=== PATIENT | male | born 1940 | race Caucasian/White ===

== ENCOUNTER 2020-07-26 07:28 | Outpatient (REF) | payer MEDICARE, OTHER, SELFPAY ==
[2020-07-26 07:57] LABS: MANUAL DIFF FLAG NO
[2020-07-26 08:00] LABS: Basophils Absolute Auto 0.1 X10*3/uL (0.0-0.2); Basophils Percent Auto 0.5 % (0-2); Eosinophils Absolute Auto 0.2 X10*3/uL (0.0-0.4); Eosinophils Percent Auto 2.1 % (0-4); Hematocrit 39.7 % (42-52); Imm Gran Abs Auto 0.04 X10*3/uL (0.00-0.03); Imm Gran Pct Auto 0.4 % (0.0-0.4); Lymphocytes Absolute Auto 0.9 X10*3/uL (1.2-4.9); Lymphocytes Percent Auto 9.8 % (20-40); Mean Corpuscular HGB Conc 32.7 g/dl (31.0-36.0); Mean Corpuscular Hemoglobin 30.8 pg (27.0-33.0); Mean Corpuscular Volume 94.1 fL (80-98); Mean Platelet Volume 10.8 fL (9.4-12.4); Monocytes Percent Auto 11.2 % (2-11); Platelet Count 192 X10*3/uL (160-400); Red Blood Count 4.22 X10*6/uL (4.60-5.80); Red Cell Distribution Width 13.9 % (11.0-16.0); White Blood Count 9.2 X10*3/uL (4.8-10.8)
[2020-07-26 08:20] LABS: Alanine Aminotransferase 23 U/L (0-40); Alkaline Phosphatase 137 U/L (39-117); Anion Gap 11 (12-20); Aspartate Amino Transferase 26 U/L (5-37); Bilirubin Total 1.8 mg/dL (0.0-1.0); Blood Urea Nitrogen 35 mg/dL (9-16); Calcium 8.7 mg/dL (8.4-10.2); Carbon Dioxide 31 mmol/L (22-29); Chloride 102 mmol/L (96-108); Cholesterol 111 mg/dL; Estimated Glomerular Filt Rate 41; Glucose Random 230 mg/dL (60-115); HDL Cholesterol 35 mg/dL; LDL Cholesterol Calculated 54 mg/dl; Potassium 3.9 mmol/L (3.3-5.1); Sodium 140 mmol/L (135-145); Total Protein 7.2 g/dL (6.5-8.0); Triglycerides 112 mg/dL
[2020-07-26 08:27] LABS: B Type Natriuretic Peptide 339 pg/mL (<100)
[2020-07-26 08:28] LABS: Creatinine Urine 114.87 mg/dL
[2020-07-26 08:42] LABS: Free T4 (Free Thyroxine) 1.28 ng/dL (0.71-1.85); Thyroid Stimulating Hormone 2.01 uIU/mL (0.32-4.0)
[2020-07-26 08:45] LABS: Microalbum/Creatinine Ratio Ur 620.7 ug/mg cr
[2020-07-26 11:57] LABS: SARS COV2 IgG Positive (Negative)
[2020-07-26 19:09] LABS: Folate 19.5 ng/mL (> or = 4.0); Vitamin B12 466 pg/mL (200-900)
== END 2020-07-26 07:29 | disposition home or self-care (01) ==
LOC: HO.LAB 07:28
PROVIDERS: Visit Provider Internal Medicine
DX: Z01.84 Encounter for antibody response examination (principal); E11.65 Type 2 diabetes mellitus with hyperglycemia; E78.00 Pure hypercholesterolemia, unspecified; I11.0 Hypertensive heart disease with heart failure; I50.22 Chronic systolic (congestive) heart failure
CPT/HCPCS: 36415; 80053; 80061; 82043; 82607; 82746; 83880; 84439; 84443; 85025; 86769

== ENCOUNTER → 2020-09-14 14:41 | Outpatient (BNVA) | payer MEDICARE, OTHER, SELFPAY | PROVIDERS: PCP Internal Medicine; Visit Provider Internal Medicine Cardiovascular Disease | DX: Z45.02 Encounter for adjustment and management of automatic implantable cardiac defibrillator (principal); I50.42 Chronic combined systolic (congestive) and diastolic (congestive) heart failure; I25.10 Atherosclerotic heart disease of native coronary artery without angina pectoris; I48.0 Paroxysmal atrial fibrillation; Z95.810 Presence of automatic (implantable) cardiac defibrillator | CPT/HCPCS: 99212 ==

== ENCOUNTER → 2020-11-10 13:50 | Outpatient (BNVA) | payer MEDICARE, OTHER, SELFPAY | PROVIDERS: PCP Internal Medicine; Visit Provider Urology | DX: Z13.89 Encounter for screening for other disorder (principal) | CPT/HCPCS: Q3014 ==

== ENCOUNTER 2021-01-11 07:47 | Outpatient (REF) | payer MEDICARE, OTHER, SELFPAY ==
[2021-01-11 08:12] LABS: MANUAL DIFF FLAG NO
[2021-01-11 08:20] LABS: Basophils Absolute Auto 0.1 X10*3/uL (0.0-0.2); Basophils Percent Auto 0.6 % (0-2); Eosinophils Absolute Auto 0.1 X10*3/uL (0.0-0.4); Eosinophils Percent Auto 1.3 % (0-4); Hematocrit 39.2 % (42-52); Hemoglobin 12.9 g/dl (14.0-18.0); Imm Gran Abs Auto 0.03 X10*3/uL (0.00-0.03); Imm Gran Pct Auto 0.3 % (0.0-0.4); Lymphocytes Absolute Auto 0.8 X10*3/uL (1.2-4.9); Lymphocytes Percent Auto 8.9 % (20-40); Mean Corpuscular HGB Conc 32.9 g/dl (31.0-36.0); Mean Corpuscular Hemoglobin 30.9 pg (27.0-33.0); Mean Corpuscular Volume 93.8 fL (80-98); Mean Platelet Volume 10.8 fL (9.4-12.4); Monocytes Absolute Auto 1.1 X10*3/uL (0.1-1.2); Monocytes Percent Auto 11.9 % (2-11); Neutrophils Absolute Auto 6.9 X10*3/uL (2.0-8.3); Platelet Count 184 X10*3/uL (160-400); Red Blood Count 4.18 X10*6/uL (4.60-5.80); Red Cell Distribution Width 13.9 % (11.0-16.0); Retic HGB Equivalent 34.4 pg (30.0-35.0); Reticulocyte Percent 2.7 % (0.5-1.8); Reticulocytes Absolute 0.115 X10*6/uL (0.026-0.095)
[2021-01-11 08:44] LABS: B Type Natriuretic Peptide 319 pg/mL (<100)
[2021-01-11 08:47] LABS: Alanine Aminotransferase 18 U/L (0-40); Albumin Level 3.8 g/dL (3.5-5.0); Alkaline Phosphatase 131 U/L (39-117); Anion Gap 12 (12-20); Aspartate Amino Transferase 22 U/L (5-37); Bilirubin Total 1.9 mg/dL (0.0-1.0); Blood Urea Nitrogen 35 mg/dL (9-16); Calcium 9.3 mg/dL (8.4-10.2); Carbon Dioxide 29 mmol/L (22-29); Chloride 103 mmol/L (96-108); Estimated Glomerular Filt Rate 36; Glucose Random 223 mg/dL (60-115); Iron 68 mcg/dL (45-160); Percent Iron Saturation 23 % (15-50); Potassium 4.5 mmol/L (3.3-5.1); Sodium 139 mmol/L (135-145); Total Iron Binding Capacity 299 mcg/dL (228-428); Total Protein 6.9 g/dL (6.5-8.0); Unsaturated Iron Binding 231 ug/dL; Uric Acid 6.9 mg/dL (3.4-7.0)
[2021-01-11 09:09] LABS: Ferritin 173 ng/mL (20-250); Thyroid Stimulating Hormone 2.52 uIU/mL (0.32-4.0)
[2021-01-11 09:14] LABS: Folate > 20.0 ng/mL (> or = 4.0); Vitamin B12 551 pg/mL (200-900)
== END 2021-01-11 07:48 | disposition home or self-care (01) ==
LOC: HO.LAB 07:47
PROVIDERS: PCP Internal Medicine; Visit Provider Internal Medicine
DX: I48.0 Paroxysmal atrial fibrillation (principal); I50.42 Chronic combined systolic (congestive) and diastolic (congestive) heart failure
CPT/HCPCS: 36415; 80053; 82607; 82728; 82746; 83540; 83880; 84443; 84550; 85025; 85045

== ENCOUNTER → 2021-02-24 08:29 | Outpatient (REF) | payer MEDICARE, OTHER, SELFPAY ==
--- NOTE | 2021-02-24 08:35 | CA_ITS ---
Transthoracic Echocardiogram Patient (Last, First, Middle): Ethan Macias D Gender: Male Date of : 1940 Age: 80 Procedure Date: 02/24/2021 Procedure Type: Transthoracic Echocardiogram Location: OP Height: 167.64 cm Weight: 91.63 kg BSA: 2.01 m2 Heart Rate: bpm BP: 118 / 64 mmHg Tour Operator: [facility] MD: Chevy Montanez MD Retail Salesman: Chevy Montanez MD Symptoms: I50.42 - Chronic combined systolic (congestive) and diastolic (congestive) heart failure Study Quality: Fair ECG Rhythm: Ventriculary paced rhythm Conclusions: - 1. Moderate LV systolic dysfunction with LVEF of 35-40% with restrictive filling pattern 2. At least moderately dilated left atrium 3. Mild mitral regurgitation 4. Mildly to moderately elevated right ventricular systolic pressure 5. No gross pericardial effusion Findings Left Ventricle Normal left ventricular cavity size. There is normal left ventricular wall thickness. The left ventricular systolic function is moderately decreased. The visually estimated ejection fraction is between 35-40%. There is paradoxical septal motion consistent with a right ventricular pacemaker. Spectral Doppler is indicative of a restrictive filling pattern. Wall Motion Rest Echo Findings The mid inferoseptal and mid inferolateral segments are hypokinetic. The apex, mid inferior, apical septum, basal inferoseptal, and basal inferolateral segments are akinetic. The basal inferior segment is dyskinetic. All other scored wall segments showed normal motion. Right Ventricle Mildly increased right ventricular cavity size. There is normal right ventricular systolic function. There is an ICD wire seen in the right ventricle. Atria The left atrium is moderately dilated. There is no evidence of interatrial shunt. The right atrium is mildly dilated. A pacemaker wire is identified in the right atrium. Aortic Valve There is mild calcification of the aortic valve. There is no aortic valve stenosis. There is no aortic valve regurgitation. Mitral Valve There is mild anterior and moderate posterior mitral leaflet thickening. There is moderate mitral annular calcification. There is mild mitral valve regurgitation. There is no mitral valve stenosis. Pulmonic Valve The pulmonic valve was not well visualized. Tricuspid Valve Likely normal tricuspid valve structure and function. There is mild to moderate tricuspid valve regurgitation. Mildly elevated right atrial pressure. Mild to moderate pulmonary hypertension is present. Great Vessels All visible segments of the aorta are normal in size. The pulmonary artery was not well visualized. Venous The inferior vena cava is mildly dilated and collapses less than 50% with inspiration. Pericardium/Pleural There is no evidence of pericardial effusion. Prior Study Comparison Changes noted compared to prior study dated: 10/17/2018. RV systolic pressure is measured to be elevated on this study Measurements 2D Linear Measurements RVIDd: 3.07 RVIDd Index: 1.53 IVSd: 1.03 0.6-0.9/0.6-1.0 cm LVIDd: 5.47 3.9-5.3/4.2-5.9 cm LVIDd Index: 2.72 2.4-3.2/2.2-3.1 cm/m2 LVIDs: 4.39 2.0-3.6 cm LVPWd: 1.42 0.7-1.1 cm Ao Root: 2.80 2.1-3.5 cm LA Diam: 5.00 2.7-3.8/3.0-4.0 cm LAIDs Index: 2.49 1.5-2.3 cm/m2 LV Mass: 346.45 67-162/88-224 g LV Mass Index: 172.36 43-95/49-115 g/m2 LVOT Diam: 2.30 3.0+(-)1.3 cm 2D Systolic Function EF 4C: 43.40 >55% EF 2C: 38.20 >55% EF BiP: 42.40 >55% Mitral Valve MR Vol - PW Dopp: 35.07 MR VTI: 1.67 MR ERO: 21.00 MR Alias Dean: 0.33 MR RAD: 0.70 Aortic Valve AoV Pk Dean: 1.52 AoV Mn Dean: 1.04 AoV VTI: 0.30 AoV Pk Grad: 9.00 Aov Mn Grad: 5.00 EDITH Cont.VTI: 2.44 LVOT LVOT Pk Dean: 0.78 LVOT Mn Dean: 0.53 LVOT VTI: 0.18 LVOT Pk Grad: 2.00 LVOT Mn Grad: 1.00 LVOT Diam: 2.30 LVOT Area: 4.15 Right Ventricle TAPSE (mm): 23.00 TVS' Dean: 9.50 Tricuspid Valve TR Pk Dean: 3.19 TR Pk Grad: 41.00 RA Press: 8.00 RVSP: 49.00 Great Vessels Aorta Ao Root-2D: 2.80 2.0-3.7 cm Ao Asc: 2.90 2.1-3.4 cm Updated in Other Vendor System with Status of Final Chevy Montanez MD electronically signed on 02/25/2021 3:37:56 PM with status of Final
== END ==
LOC: HO.CARD 08:29
PROVIDERS: Visit Provider Internal Medicine Cardiovascular Disease
DX: I50.42 Chronic combined systolic (congestive) and diastolic (congestive) heart failure (principal)
CPT/HCPCS: 93306

== ENCOUNTER → 2021-03-17 13:04 | Outpatient (BNVA) | payer MEDICARE, OTHER, SELFPAY | PROVIDERS: PCP Internal Medicine; Referring Provider Internal Medicine; Visit Provider Internal Medicine Cardiovascular Disease | DX: Z45.02 Encounter for adjustment and management of automatic implantable cardiac defibrillator (principal); I50.42 Chronic combined systolic (congestive) and diastolic (congestive) heart failure; I48.0 Paroxysmal atrial fibrillation; I25.10 Atherosclerotic heart disease of native coronary artery without angina pectoris | CPT/HCPCS: 99212 ==

== ENCOUNTER 2021-03-22 10:26 | Inpatient (IN) | payer OTHER, MEDICARE, SELFPAY ==
[2021-03-22] VITALS (12 sets, daily range): BP systolic 122–154; BP diastolic 49–103; PULSE 70–82; RESP 18–26; TEMP 36.1–37.2; O2SAT 91–97; BMI 32.4
--- NOTE | 2021-03-22 | ECG_ITS ---
Test Reason : DYSPNEA Blood Pressure : / mmHG Vent. Rate : 076 BPM Atrial Rate : 022 BPM P-R Int : 000 ms QRS Dur : 166 ms QT Int : 470 ms P-R-T Axes : 000 -12 -30 degrees QTc Int : 528 ms Ventricular-paced rhythm Abnormal ECG When compared with ECG of 02-AUG-2019 01:32, Vent. rate has increased BY 5 BPM Referred By: Generic ED Physician Electronically Signed By:KAIDEN SAMUEL
--- NOTE | ~2021-03-22 | XR_ITS ---
EXAMINATION: XR CHEST CLINICAL INFORMATION: Dyspnea COMPARISON: Previous chest x-ray most recent July 2019 TECHNIQUE: Frontal view of the chest was obtained. FINDINGS: The cardiac silhouette is slightly enlarged. Left subclavian pacemaker AICD devices appear unchanged. There are post-CABG changes. There may be pulmonary venous redistribution. The lungs are otherwise clear. There is no pleural effusion or pneumothorax. There are degenerative changes of the spine. There are median sternotomy wires. XR/XR chest 1V IMPRESSION: Slightly enlarged cardiac silhouette and question pulmonary venous redistribution. Findings are questionable for mild CHF.
--- NOTE | 2021-03-22 11:01 | ED.SOB ---
HPI - SOB/Dyspnea General Chief Complaint: Dyspnea Stated Complaint: diff breathing Time Seen by Provider: 03/22/21 10:39 Source: patient Mode of arrival: ambulatory Limitations: no limitations History of Present Illness HPI Narrative: 80 y/o male with history of CKD, CAD with ischemic cardiomyopathy with EF 35-40%, S/P ICD/PPM who presents to the ER with SOB that started last night. He reports getting his COVID-19 booster shot yesterday morning. He had previously gotten his Pfizer vaccines in July and had COVID-19 last April. Last night he starting having chills, SOB, and body aches. He reports ongoing SOB overnight. He can take 2-3 full deep breaths and then cannot get a deep breath with subsequent breaths. He has non-radiating chest discomfort as well. He c/o indigestion with belching and flatus. No abdominal pain, nausea, diarrhea, diaphoresis or fevers. MD elicited complaint: shortness of breath Pertinent past history: congestive heart failure Onset (ago): day(s) (1) Timing: constant and progressively worsening Severity: moderate Exacerbating factors: deep breaths Relieving factors: rest Known history of: congestive heart failure Associated symptoms: lightheadedness Treatment prior to arrival: none Related Data Home oxygen amount: none Home Medications Medication Instructions Recorded Confirmed multivitamin 1 tab PO DAILY 04/12/20 03/22/21 bumetanide 1 mg tablet 1 mg PO DAILY tab 03/17/21 03/22/21 Previous Rx's Medication Instructions Recorded hydralazine 10 mg tablet 10 mg PO BID 90 Days #180 tab 03/31/20 atorvastatin 80 mg tablet 80 mg PO DAILY #90 tab 06/24/20 carvedilol 6.25 mg tablet 6.25 mg PO BID #180 tab 06/24/20 glimepiride 4 mg tablet 4 mg PO QAM #90 tab 08/18/20 ropinirole 0.25 mg tablet 0.25 mg PO BEDTIME #90 tab 08/18/20 sitagliptin 50 mg tablet (Januvia) 50 mg PO DAILY #90 tab 08/18/20 tamsulosin 0.4 mg capsule (Flomax) 0.4 mg PO DAILY 90 Days #90 cap 08/18/20 rivaroxaban 15 mg tablet (Xarelto) 15 mg PO DAILY #90 tab 08/19/20 nitroglycerin 0.4 mg sublingual 0.4 mg SUBLINGUAL Q5M PRN #25 tab 09/16/20 tablet (Nitrostat) colchicine 0.6 mg tablet (Colcrys) 0.6 mg PO DAILY 90 Days #90 tab 12/23/20 allopurinol 100 mg tablet 100 mg PO DAILY 90 Days #90 tab 01/24/21 nitroglycerin 0.4 mg/hr 1 patch TRANSDERMAL DAILY 90 Days 02/23/21 transdermal 24 hour patch #90 ea (Nitro-Dur) Allergies Allergy/AdvReac Type Severity Reaction Status Date / Time dabigatran etexilate Allergy Unknown indigestion Verified 01/14/21 12:50 [Pradaxa] sacubitril [From ENTRESTO] Allergy Unknown FEELS LIKE Verified 01/14/21 12:50 HAVING A HEART ATTACK valsartan [From ENTRESTO] Allergy Unknown FEELS LIKE Verified 01/14/21 12:50 HAVING A HEART ATTACK Review of Systems Review of Systems: Constitutional: No Fever, + Chills ENT/Mouth: No sore throat, No Rhinorrhea, No Swallowing Difficulty Cardiovascular: + Chest Pain, + SOB, No Orthopnea, No Edema Respiratory: No Cough, No Sputum, No Wheezing, + dyspnea Gastrointestinal: No Nausea, No Vomiting, No Diarrhea, No abdominal Pain, +belching Genitourinary: No Dysuria, No Urinary Frequency, No Hematuria Musculoskeletal: No joint pain, + Myalgias Skin: No Skin Lesions, No rash Neuro: No Weakness, No Numbness, No Dizziness, + Headache Psych: No Anxiety/Panic, No Depression Heme/Lymph: No Bruising, No Lymphadenopathy PMFSH Past Medical History Attestation statement: The following information was validated with the patient. Medical History Aortic aneurysm Atrial fibrillation Biventricular ICD (implantable cardioverter-defibrillator) in place CAD (coronary artery disease) Chronic heart failure with reduced ejection fraction and diastolic dysfunction Congestive heart failure GERD (gastroesophageal reflux disease) Gout History of GI bleed Hypercholesterolemia Hypertension Ischemic cardiomyopathy Obesity (BMI 30-39.9) TIA (transient ischemic attack) Type 2 diabetes mellitus with hyperglycemia Surgical History Coronary artery disease involving coronary bypass graft History of cardiac defibrillator placement History of cholecystectomy Family History Family History Father CVD (cardiovascular disease) Hypertension Mother Cancer Social History Social History Alcohol intake: never Patient Tobacco Use Status: Former Tobacco user Years Smoked: quit 1985 Advance Directives: No Advance Directives Information Provided: No Physical Exam Vital Signs: Vital Signs: Last Vital Signs Temp 97 F 03/22/21 13:47 Pulse 70 03/22/21 13:47 Resp 18 03/22/21 13:47 BP 146/103 H 03/22/21 13:47 Pulse Ox 97 03/22/21 13:47 Body Mass Index 32.4 Appearance: Alert. Oriented X3. No acute distress. Eyes: Pupils equal, round and reactive to light. ENT: Pharynx normal. Neck: Normal inspection. Neck supple. CVS: Normal heart rate and rhythm. Pulses normal. Respiratory: No respiratory distress. Breath sounds diminished at bilateral bases Abdomen: Softly distended and nontender. +BS x4 Skin: Skin warm and dry. Normal skin color. Normal skin turgor. No rashes. Extremities: Trace lower extremity edema. Neuro: Oriented X 3. No motor deficit. No sensory deficit. Course Course Course Narrative: 80 y/o male with multiple comorbidities including HFrEF, CAD, s/p PPM/ICD, CKD, hx COVID in April 2020 coming in with SOB and not feeling well after getting his COVID booster yesterday. SPO2 93% on room air, no distress. Will get CXR, EKG, BNP lab workup and COVID test. He is due to his Bumex, he was feeling off this morning so he didn't take it yet today. Reevaluation(s) Reevaluation #1: BNP 673 from his baseline of 300 range. His CKD is at his baseline. CXR with mild CHF findings. COVID POSITIVE. SpO2 91% on room air. Will place on supplemental O2 and plan for admission. His respiratory complaints are most likely due to a combination of acute on chronic heart failure and COVID-19. IV Bumex and IV decadron ordered. MDM - SOB/Dyspnea Lab Data Result diagrams: 03/22/21 11:04 03/22/21 11:04 Labs: Lab Results 03/22/21 03/22/21 03/22/21 Range/Units 11:04 11:04 11:04 WBC 7.5 (4.8-10.8) X10*3/uL RBC 4.00 L (4.60-5.80) X10*6/uL Hgb 12.3 L (14.0-18.0) g/dl Hct 37.0 L (42-52) % MCV 92.5 (80-98) fL MCH 30.8 (27.0-33.0) pg MCHC 33.2 (31.0-36.0) g/dl RDW 13.8 (11.0-16.0) % Plt Count 152 L (160-400) X10*3/uL MPV 10.9 (9.4-12.4) fL Immature Gran % (Auto) 0.4 (0.0-0.4) % Neut % (Auto) 85.9 H (45-73) % Lymph % (Auto) 2.8 L (20-40) % [place] % (Auto) 10.4 (2-11) % Eos % (Auto) 0.1 (0-4) % Baso % (Auto) 0.4 (0-2) % Lymph # (Auto) 0.2 L (1.2-4.9) X10*3/uL [place] # (Auto) 0.8 (0.1-1.2) X10*3/uL Eos # (Auto) 0.0 (0.0-0.4) X10*3/uL Baso # (Auto) 0.0 (0.0-0.2) X10*3/uL Abs Immat Gran (auto) 0.03 (0.00-0.03) X10*3/uL Absolute Neuts (auto) 6.4 (2.0-8.3) X10*3/uL Absolute Nucleated RBC 0.000 (0.0-0.012) X10*3/uL Nucleated RBC % (auto) 0.0 (0.0-0.2) /100WBC PT (9.9-13.0) SEC INR (0.9-1.1) Sodium 139 (135-145) mmol/L Potassium 4.3 (3.3-5.1) mmol/L Chloride 104 (96-108) mmol/L Carbon Dioxide 28 (22-29) mmol/L Anion Gap 11 L (12-20) BUN 31 H (9-16) mg/dL Creatinine 1.87 H (0.5-1.4) mg/dL Estim Creat Clear Calc 34.4 Estimated GFR 35 Random Glucose 209 H (60-115) mg/dL Calcium 9.0 (8.4-10.2) mg/dL Troponin I High Sens 26.5 (<3.5-35.0) ng/L B-Natriuretic Peptide 673 H (<100) pg/mL COVID-19 (LOGAN) (Negative) COVID-19 Clin Com 03/22/21 03/22/21 Range/Units 11:04 11:58 WBC (4.8-10.8) X10*3/uL RBC (4.60-5.80) X10*6/uL Hgb (14.0-18.0) g/dl Hct (42-52) % MCV (80-98) fL MCH (27.0-33.0) pg MCHC (31.0-36.0) g/dl RDW (11.0-16.0) % Plt Count (160-400) X10*3/uL MPV (9.4-12.4) fL Immature Gran % (Auto) (0.0-0.4) % Neut % (Auto) (45-73) % Lymph % (Auto) (20-40) % [place] % (Auto) (2-11) % Eos % (Auto) (0-4) % Baso % (Auto) (0-2) % Lymph # (Auto) (1.2-4.9) X10*3/uL [place] # (Auto) (0.1-1.2) X10*3/uL Eos # (Auto) (0.0-0.4) X10*3/uL Baso # (Auto) (0.0-0.2) X10*3/uL Abs Immat Gran (auto) (0.00-0.03) X10*3/uL Absolute Neuts (auto) (2.0-8.3) X10*3/uL Absolute Nucleated RBC (0.0-0.012) X10*3/uL Nucleated RBC % (auto) (0.0-0.2) /100WBC PT 20.8 H (9.9-13.0) SEC INR 1.8 H (0.9-1.1) Sodium (135-145) mmol/L Potassium (3.3-5.1) mmol/L Chloride (96-108) mmol/L Carbon Dioxide (22-29) mmol/L Anion Gap (12-20) BUN (9-16) mg/dL Creatinine (0.5-1.4) mg/dL Estim Creat Clear Calc Estimated GFR Random Glucose (60-115) mg/dL Calcium (8.4-10.2) mg/dL Troponin I High Sens (<3.5-35.0) ng/L B-Natriuretic Peptide (<100) pg/mL COVID-19 (LOGAN) Positive A (Negative) COVID-19 Clin Com See Note ECG Data Attestation: I personally reviewed and interpreted this ECG as follows: ECG interpretation date: 03/22/21 ECG interpretation time: 14:57 Interpretation: v-paced rhythm, HR 76 bpm, no ST segment elevations or depressions, some artifact is present Critical Care Time Critical Care Time Critical Care Time: Yes Total Critical Care Time: 36 Attestation: I have personally provided critical care time exclusive of time spent on separately billable procedures. Time includes review of lab data, radiology results, discussion with consultants, and monitoring for potential decompensation. Intervention performed as documented. Discharge Plan Discharge Clinical Impression: COVID-19 Acute CHF Qualifiers: Heart failure type: combined systolic and diastolic Qualified Code(s): I50.41 - Acute combined systolic (congestive) and diastolic (congestive) heart failure Patient Disposition: Admitted As Inpatient
[2021-03-22 11:10] LABS: MANUAL DIFF FLAG NO
[2021-03-22 11:12] LABS: Basophils Percent Auto 0.4 % (0-2); Eosinophils Percent Auto 0.1 % (0-4); Hemoglobin 12.3 g/dl (14.0-18.0); Imm Gran Abs Auto 0.03 X10*3/uL (0.00-0.03); Imm Gran Pct Auto 0.4 % (0.0-0.4); Lymphocytes Absolute Auto 0.2 X10*3/uL (1.2-4.9); Lymphocytes Percent Auto 2.8 % (20-40); Mean Corpuscular HGB Conc 33.2 g/dl (31.0-36.0); Mean Corpuscular Hemoglobin 30.8 pg (27.0-33.0); Mean Corpuscular Volume 92.5 fL (80-98); Mean Platelet Volume 10.9 fL (9.4-12.4); Monocytes Absolute Auto 0.8 X10*3/uL (0.1-1.2); Monocytes Percent Auto 10.4 % (2-11); Neutrophils Absolute Auto 6.4 X10*3/uL (2.0-8.3); Neutrophils Percent Auto 85.9 % (45-73); Platelet Count 152 X10*3/uL (160-400); Red Cell Distribution Width 13.8 % (11.0-16.0); White Blood Count 7.5 X10*3/uL (4.8-10.8)
[2021-03-22 11:20] LABS: INTERNATIONAL NORM RATIO 1.8 (0.9-1.1); Prothrombin Time 20.8 SEC (9.9-13.0)
[2021-03-22 11:27] LABS: Anion Gap 11 (12-20); Blood Urea Nitrogen 31 mg/dL (9-16); Carbon Dioxide 28 mmol/L (22-29); Chloride 104 mmol/L (96-108); Creatinine Clr Calc Pharmacy 34.4; Estimated Glomerular Filt Rate 35; Glucose Random 209 mg/dL (60-115); Potassium 4.3 mmol/L (3.3-5.1); Sodium 139 mmol/L (135-145)
[2021-03-22] MEDS: Magnesium Hydrox/Alum Hydrox 30 ML ORAL.SUSP PO (11:28)
[2021-03-22] MEDS: Simethicone 80 MG TAB.CHEW 160 MG PO (11:28)
[2021-03-22 11:34] LABS: B Type Natriuretic Peptide 673 pg/mL (<100); Troponin-I High Sensitivity 26.5 ng/L (<3.5-35.0)
[2021-03-22 12:13] LABS: COVID-19 Test Positive (Negative)
--- NOTE | 2021-03-22 12:48 | PC.NURSE ---
patient arrives to ED from home with son. Patient A+Ox4. States he received his COVID-19 2nd shot yesterday. States last night he was having difficulty breathing, and could not fall asleep. Patient SpO2 >92% on room air. Patient ambulated on RA remained >93%. VSS. Labs drawn and sent. IV placed and flushed. Resting safely.
[2021-03-22] MEDS: Bumetanide 1 MG/4 ML VIAL IVPUSH (13:04)
--- NOTE | 2021-03-22 13:36 | PHA.MEDREC ---
Pharmacy Consult ? Medication Reconciliation Pharmacy has completed the medication reconciliation.
[2021-03-22] MEDS: dexAMETHasone sod phosphate 4 MG/ML VIAL 6 MG IVPUSH (13:48)
[2021-03-22] MEDS: 0.9 % Sodium Chloride Flush 3 ML SYRINGE IVFLUSH ×2 (15:37→21:44)
--- NOTE | 2021-03-22 15:40 | P.HPHOSP_ITS ---
History of Present Illness Date of Service: 03/22/21 Chief Complaint: shortness of breath 80-year-old man presented to the ER with complaints of worsening shortness of breath that started last night. He had COVID-19 in April of 2020 and that was vaccinated with the 5 vaccine in July of 2020. Yesterday he had his booster and developed shortness of breath overnight. He had some nonradiating chest discomfort with indigestion and frequent belching and flatus. He denied nausea, vomiting, abdominal pain, fever, chills. He has a history of congestive heart failure and is on Bumex at home. In the ears BNP is noted to be elevated at 673, initial troponin 26.5. COVID-19 was positive. , he was not noted to be hypoxic at all. His blood pressure was noted to be elevated at 140 6/103. Last echocardiogram on February 24 showed EF of 35-40% with moderately dilated left atrium. He was given a dose of IV Bumex, Decadron, Maalox and simethicone. He will be admitted for further management and treatment of acute heart failure and incidental finding of COVID-19. Review of Systems Review of Systems: Denies any recent fever chills or decrease in appetite respiratory denies any shortness of breath coverage production cardiovascular is adjustment of any PND or edema gastrointestinal denies any dysphagia abdominal pain nausea vomiting or diarrhea genitourinary denies any dysuria frequency or hematuria musculoskeletal denies any joint pain or swelling neuropsych denies any weakness or seizures all other systems reviewed are negative [facility] Medical History Aortic aneurysm Atrial fibrillation Biventricular ICD (implantable cardioverter-defibrillator) in place CAD (coronary artery disease) Chronic heart failure with reduced ejection fraction and diastolic dysfunction Congestive heart failure GERD (gastroesophageal reflux disease) Gout History of GI bleed Hypercholesterolemia Hypertension Ischemic cardiomyopathy Obesity (BMI 30-39.9) TIA (transient ischemic attack) Type 2 diabetes mellitus with hyperglycemia Family History Father CVD (cardiovascular disease) Hypertension Mother Cancer Pertinent family history: . Surgical History Coronary artery disease involving coronary bypass graft History of cardiac defibrillator placement History of cholecystectomy Social History Alcohol intake: never Patient Tobacco Use Status: Former Tobacco user Years Smoked: quit 1985 Advance Directives: No Advance Directives Information Provided: No Meds Allergies Allergy/AdvReac Type Severity Reaction Status Date / Time dabigatran etexilate Allergy Unknown indigestion Verified 01/14/21 12:50 [Pradaxa] sacubitril [From ENTRESTO] Allergy Unknown FEELS LIKE Verified 01/14/21 12:50 HAVING A HEART ATTACK valsartan [From ENTRESTO] Allergy Unknown FEELS LIKE Verified 01/14/21 12:50 HAVING A HEART ATTACK Active Medications: Current Medications Acetaminophen (Acetaminophen 325 Mg Tablet) 650 mg PO Q6H PRN PRN Reason: Pain, Mild (Pain Scale 1-3) Furosemide (Furosemide 20 Mg/2 Ml Vial) 20 mg IVPUSH BID@0900,1800 QUETA; Protocol Ondansetron HCl (Ondansetron Hcl 4 Mg/2 Ml Vial) 4 mg IVPUSH Q8H PRN PRN Reason: Nausea and Vomiting Pharmacy Consult (Consult Rx Perform Med Rec) 1 each MISCELLANE ONCE PRN PRN Reason: Consult order Sodium Chloride (0.9 % Sodium Chloride Flush 3 Ml Syringe) [facility] Last Admin: 03/22/21 15:37 Dose: 3 ml Documented by: Home Medications Medication Instructions Recorded Confirmed Last Taken Type multivitamin 1 tab PO DAILY 04/12/20 03/22/21 Unknown History bumetanide 1 mg tablet 1 mg PO DAILY tab 03/17/21 03/22/21 Unknown History Physical Exam Vital Signs and Narrative: Vital Signs: Last Vital Signs Temp 97 F 03/22/21 13:47 Pulse 70 03/22/21 13:47 Resp 18 03/22/21 13:47 BP 146/103 H 03/22/21 13:47 Pulse Ox 97 03/22/21 13:47 Body Mass Index 32.4 Results Labs CBC and Chem 7: 03/22/21 11:04 03/22/21 11:04 Labs: Laboratory Results - last 24 hr 03/22/21 03/22/21 03/22/21 11:04 11:04 11:04 MCV 92.5 MCH 30.8 MCHC 33.2 RDW 13.8 Plt Count 152 L MPV 10.9 Immature Gran % (Auto) 0.4 Neut % (Auto) 85.9 H Lymph % (Auto) 2.8 L [place] % (Auto) 10.4 Eos % (Auto) 0.1 Baso % (Auto) 0.4 Lymph # (Auto) 0.2 L [place] # (Auto) 0.8 Eos # (Auto) 0.0 Baso # (Auto) 0.0 Abs Immat Gran (auto) 0.03 Absolute Neuts (auto) 6.4 Absolute Nucleated RBC 0.000 Nucleated RBC % (auto) 0.0 PT INR Anion Gap 11 L Estim Creat Clear Calc 34.4 Estimated GFR 35 Random Glucose 209 H Calcium 9.0 Troponin I High Sens 26.5 B-Natriuretic Peptide 673 H COVID-19 (LOGAN) COVID-19 Clin Com 03/22/21 03/22/21 11:04 11:58 MCV MCH MCHC RDW Plt Count MPV Immature Gran % (Auto) Neut % (Auto) Lymph % (Auto) [place] % (Auto) Eos % (Auto) Baso % (Auto) Lymph # (Auto) [place] # (Auto) Eos # (Auto) Baso # (Auto) Abs Immat Gran (auto) Absolute Neuts (auto) Absolute Nucleated RBC Nucleated RBC % (auto) PT 20.8 H INR 1.8 H Anion Gap Estim Creat Clear Calc Estimated GFR Random Glucose Calcium Troponin I High Sens B-Natriuretic Peptide COVID-19 (LOGAN) Positive A COVID-19 Clin Com See Note Imaging Radiologist's Impressions: Impressions Chest X-Ray 03/22/21 10:46 IMPRESSION: Slightly enlarged cardiac silhouette and question pulmonary venous redistribution. Findings are questionable for mild CHF. Assessment and Plan (1) COVID-19: Status: Acute (2) Acute CHF: Qualifiers: Heart failure type: combined systolic and diastolic Qualified Code(s): I50.41 - Acute combined systolic (congestive) and diastolic (congestive) heart failure Status: Acute 80 year old man admitted with acute on chronic congestive heart failure and also found to be positive for COVID-19 although he did have COVID-19 in April of 2020 and was vaccinated fully in July of 2020 Heart failure with reduced ejection fraction. EF 35-40% IV Lasix b.i.d. Cardiology consultation Follow intake and output closely, daily weights Supplemental oxygen as needed Continue beta-lety COVID-19. Reoccurrence Not hypoxic, seems to be asymptomatic current symptoms more likely related to heart failure Will obtain respiratory pathogen panel Infectious disease consultation Paroxysmal atrial fibrillation Continue beta-lety and Xarelto Hypertension Continue hydralazine Diabetes mellitus Sliding scale, ADA diet DVT prophylaxis with Xarelto Attending Dr. Monroy Full code Quality Stroke Does the patient have a stroke diagnosis?: No VTE Prior VTE?: No VTE Risk Level:: Medical - moderate - high VTE Device Contraindication: Treatment Not Indicated VTE Drug Contraindication: N/A - Med Ordered
[2021-03-22 15:49] LABS: D Dimer 296 NG/ML
[2021-03-22 15:55] LABS: C Reactive Protein 1.33 mg/dL (< or = 0.50); Lactate Dehydrogenase 233 U/L (118-273)
[2021-03-22 16:13] LABS: Ferritin 254 ng/mL (20-250)
[2021-03-22 16:28] LABS: Adenovirus PCR Not Detected (Not Detect.); Bordetella parapertussis PCR Not Detected (Not Detect.); Bordetella pertussis PCR Not Detected (Not Detect.); Chlamydia pneumoniae PCR Not Detected (Not Detect.); Coronavirus 229E PCR Not Detected (Not Detect.); Coronavirus HKU1 PCR Not Detected (Not Detect.); Coronavirus NL63 PCR Not Detected (Not Detect.); Coronavirus OC43 PCR Not Detected (Not Detect.); Human metapneumovirus PCR Not Detected (Not Detect.); Influenza A PCR Not Detected (Not Detect.); Influenza B PCR Not Detected (Not Detect.); Mycoplasma pneumoniae PCR Not Detected (Not Detect.); Parainfluenza 1 PCR Not Detected (Not Detect.); Parainfluenza 2 PCR Not Detected (Not Detect.); Parainfluenza 3 PCR Not Detected (Not Detect.); Parainfluenza 4 PCR Not Detected (Not Detect.); RSV PCR Not Detected (Not Detect.); Rhino/Enterovirus PCR Not Detected (Not Detect.); SARS-CoV-2 PCR Not Detected (Not Detect.)
[2021-03-22] MEDS: Furosemide 20 MG/2 ML VIAL IVPUSH (17:47)
[2021-03-23 04:00] VITALS: BP 117/58; PULSE 78; RESP 20; TEMP 36.8; O2SAT 97
[2021-03-23 06:27] LABS: MANUAL DIFF FLAG NO
[2021-03-23 06:31] LABS: Basophils Percent Auto 0.3 % (0-2); Hematocrit 35.5 % (42-52); Hemoglobin 11.9 g/dl (14.0-18.0); Imm Gran Abs Auto 0.04 X10*3/uL (0.00-0.03); Imm Gran Pct Auto 0.5 % (0.0-0.4); Lymphocytes Absolute Auto 0.3 X10*3/uL (1.2-4.9); Lymphocytes Percent Auto 4.2 % (20-40); Mean Corpuscular HGB Conc 33.5 g/dl (31.0-36.0); Mean Corpuscular Hemoglobin 30.7 pg (27.0-33.0); Mean Corpuscular Volume 91.5 fL (80-98); Mean Platelet Volume 10.9 fL (9.4-12.4); Monocytes Absolute Auto 0.6 X10*3/uL (0.1-1.2); Monocytes Percent Auto 8.2 % (2-11); Neutrophils Absolute Auto 6.5 X10*3/uL (2.0-8.3); Neutrophils Percent Auto 86.8 % (45-73); Platelet Count 155 X10*3/uL (160-400); Red Blood Count 3.88 X10*6/uL (4.60-5.80); Red Cell Distribution Width 13.9 % (11.0-16.0); White Blood Count 7.5 X10*3/uL (4.8-10.8)
[2021-03-23 06:48] LABS: Anion Gap 12 (12-20); Blood Urea Nitrogen 40 mg/dL (9-16); Calcium 8.9 mg/dL (8.4-10.2); Carbon Dioxide 28 mmol/L (22-29); Chloride 100 mmol/L (96-108); Creatinine Clr Calc Pharmacy 33.1; Estimated Glomerular Filt Rate 34; Glucose Random 319 mg/dL (60-115); Potassium 4.4 mmol/L (3.3-5.1); Sodium 136 mmol/L (135-145)
[2021-03-23 06:55] VITALS: BP 115/60; PULSE 82; RESP 20; TEMP 36.6; O2SAT 97
[2021-03-23 08:15] LABS: B Type Natriuretic Peptide 767 pg/mL (<100)
--- NOTE | 2021-03-23 08:39 | MHC.CM.PN ---
Patient is Covid (+); CM spoke with Patient over the phone at room extension [phone]. Patient lives in an apartment with his 2 Sons/HCPs and he is functionally independent. Patient's goal is to return home/no services and CM has initiated and will follow for dc planning. IMM addressed with Patient over the phone (a copy has been placed on the chart).PCP is DR. Kishan AGUAYO.
[2021-03-23] MEDS: Furosemide 20 MG/2 ML VIAL IVPUSH ×2 (09:11→16:50)
[2021-03-23] MEDS: 0.9 % Sodium Chloride Flush 3 ML SYRINGE IVFLUSH ×3 (09:12→23:43)
[2021-03-23 10:55] VITALS: BP 113/63; PULSE 72; RESP 18; TEMP 36.6; O2SAT 96
--- NOTE | 2021-03-23 11:05 | P.PNIM_ITS ---
Progress Note: A&P (1) COVID-19: Status: Acute <Hilda Rooney NP - Last Filed: 03/23/21 11:27> (2) Acute CHF: Status: Acute <Hilda Rooney NP - Last Filed: 03/23/21 11:27> Assessment and Plan: 80 year old man admitted with acute on chronic congestive heart failure and also found to be positive for COVID-19 although he did have COVID-19 in April of 2020 and was vaccinated fully in July of 2020 Heart failure with reduced ejection fraction.? EF 35-40% IV Lasix b.i.d. Cardiology following Follow intake and output closely, daily weights Supplemental oxygen as needed Continue beta-lety BNP slightly up today, one more day of diuresis COVID-19.? Reoccurrence Not hypoxic, seems to be asymptomatic current symptoms more likely related to heart failure Will obtain respiratory pathogen panel Infectious disease consultation Paroxysmal atrial fibrillation Continue beta-ltey and Xarelto Hypertension Continue hydralazine Diabetes mellitus Sliding scale, ADA diet DVT prophylaxis with Xarelto Attending Dr. Monroy Full code <Hilda Rooney NP - Last Filed: 03/23/21 11:27> Subjective Subjective Date of Service: 03/23/21 <Hilda Rooney NP - Last Filed: 03/23/21 11:27> 03/23/21 <Stiven Monroy MD - Last Filed: 03/23/21 14:53> Review of Systems Follow up CHF, ? covid No sob or cough less edema <Hilda Rooney NP - Last Filed: 03/23/21 11:27> Physical Exam Vital Signs: Vital Signs: Last Vital Signs Temp 98 F 03/23/21 10:55 Pulse 72 03/23/21 10:55 Resp 18 03/23/21 10:55 BP 113/63 03/23/21 10:55 Pulse Ox 96 03/23/21 10:55 Body Mass Index 32.4 <Hilda Rooney NP - Last Filed: 03/23/21 11:27> Appearing in no acute distress lung sounds are clear to auscultation heart regular rate rhythm, clear S1, S2 positive bowel sounds, abdomen is soft, nontender neuro patient is alert x3, no focal deficits <Hilda Rooney NP - Last Filed: 03/23/21 11:27> Objective Data Current Medications Acetaminophen (Acetaminophen 325 Mg Tablet) 650 mg PO Q6H PRN PRN Reason: Pain, Mild (Pain Scale 1-3) Dextrose (Dextrose 50 % 25 Gm/50 Ml Vial) 25 gm IVPUSH Q15M PRN; Protocol PRN Reason: per Hypoglycemia Standing Ord. Furosemide (Furosemide 20 Mg/2 Ml Vial) 20 mg IVPUSH BID@0900,1800 [facility]; Protocol Last Admin: 03/23/21 09:11 Dose: 20 mg Documented by: Glucose (Glucose Gel 15 Gm Gel..Gram.) 15 gm PO Q15M PRN; Protocol PRN Reason: per Hypoglycemia Standing Ord. Insulin Human Lispro (Insulin Lispro 100 Unit/Ml 3 Ml Vial) 0 unit SUBCUT QIDACHS [facility]; Protocol Ondansetron HCl (Ondansetron Hcl 4 Mg/2 Ml Vial) 4 mg IVPUSH Q8H PRN PRN Reason: Nausea and Vomiting Pharmacy Consult (Consult Rx Perform Med Rec) 1 each MISCELLANE ONCE PRN PRN Reason: Consult order Sodium Chloride (0.9 % Sodium Chloride Flush 3 Ml Syringe) [facility] Admin: 03/23/21 09:12 Dose: 3 ml Documented by: <Hilda Rooney NP - Last Filed: 03/23/21 11:27> Labs CBC & Chem 7: : 03/23/21 05:56 03/23/21 05:56 <Hilda Rooney NP - Last Filed: 03/23/21 11:27> Labs: Laboratory Results - last 24 hr 03/22/21 03/22/21 03/22/21 11:04 11:04 11:04 MCV 92.5 MCH 30.8 MCHC 33.2 RDW 13.8 Plt Count 152 L MPV 10.9 Immature Gran % (Auto) 0.4 Neut % (Auto) 85.9 H Lymph % (Auto) 2.8 L [place] % (Auto) 10.4 Eos % (Auto) 0.1 Baso % (Auto) 0.4 Lymph # (Auto) 0.2 L [place] # (Auto) 0.8 Eos # (Auto) 0.0 Baso # (Auto) 0.0 Abs Immat Gran (auto) 0.03 Absolute Neuts (auto) 6.4 Absolute Nucleated RBC 0.000 Nucleated RBC % (auto) 0.0 PT INR D-Dimer Anion Gap 11 L Estim Creat Clear Calc 34.4 Estimated GFR 35 Random Glucose 209 H Calcium 9.0 Ferritin 254 H Lactate Dehydrogenase 233 Troponin I High Sens 26.5 C-Reactive Protein 1.33 H B-Natriuretic Peptide 673 H Respiratory Panel Ghotra Adenovirus (Rapid PCR) B.pert (TEM-PCR) B.parapertussis DNA PCR C. pneumoniae DNA (PCR) Coronavirus OC43 (PCR) Coronavirus HKU1 (PCR) Coronavirus 229E (PCR) COVID-19 ([facility]) COVID-19 Clin Com Coronavirus NL63 (PCR) Human Metapneumovir PCR Influenza A (RT-PCR) Influenza B (RT-PCR) M. pneumoniae (PCR) Parainfluenza 1 (PCR) Parainfluenza 2 (PCR) Parainfluenza 3 (PCR) Parainfluenza 4 (PCR) RSV (PCR) Entero/Rhino (PCR) SARS-CoV-2 RNA (RT-PCR) 03/22/21 03/22/21 03/22/21 11:04 11:58 16:18 MCV MCH MCHC RDW Plt Count MPV Immature Gran % (Auto) Neut % (Auto) Lymph % (Auto) [place] % (Auto) Eos % (Auto) Baso % (Auto) Lymph # (Auto) [place] # (Auto) Eos # (Auto) Baso # (Auto) Abs Immat Gran (auto) Absolute Neuts (auto) Absolute Nucleated RBC Nucleated RBC % (auto) PT 20.8 H INR 1.8 H D-Dimer 296 Anion Gap Estim Creat Clear Calc Estimated GFR Random Glucose Calcium Ferritin Lactate Dehydrogenase Troponin I High Sens C-Reactive Protein B-Natriuretic Peptide Respiratory Panel Ghotra See Note Adenovirus (Rapid PCR) Not Detected B.pert (TEM-PCR) Not Detected B.parapertussis DNA PCR Not Detected C. pneumoniae DNA (PCR) Not Detected Coronavirus OC43 (PCR) Not Detected Coronavirus HKU1 (PCR) Not Detected Coronavirus 229E (PCR) Not Detected COVID-19 ([facility]) Positive A COVID-19 Clin Com See Note Coronavirus NL63 (PCR) Not Detected Human Metapneumovir PCR Not Detected Influenza A (RT-PCR) Not Detected Influenza B (RT-PCR) Not Detected M. pneumoniae (PCR) Not Detected Parainfluenza 1 (PCR) Not Detected Parainfluenza 2 (PCR) Not Detected Parainfluenza 3 (PCR) Not Detected Parainfluenza 4 (PCR) Not Detected RSV (PCR) Not Detected Entero/Rhino (PCR) Not Detected SARS-CoV-2 RNA (RT-PCR) Not Detected 03/23/21 03/23/21 03/23/21 05:56 05:56 05:56 MCV 91.5 MCH 30.7 MCHC 33.5 RDW 13.9 Plt Count 155 L MPV 10.9 Immature Gran % (Auto) 0.5 H Neut % (Auto) 86.8 H Lymph % (Auto) 4.2 L [place] % (Auto) 8.2 Eos % (Auto) 0.0 Baso % (Auto) 0.3 Lymph # (Auto) 0.3 L [place] # (Auto) 0.6 Eos # (Auto) 0.0 Baso # (Auto) 0.0 Abs Immat Gran (auto) 0.04 H Absolute Neuts (auto) 6.5 Absolute Nucleated RBC 0.000 Nucleated RBC % (auto) 0.0 PT INR D-Dimer Anion Gap 12 Estim Creat Clear Calc 33.1 Estimated GFR 34 Random Glucose 319 H D Calcium 8.9 Ferritin Lactate Dehydrogenase Troponin I High Sens C-Reactive Protein B-Natriuretic Peptide 767 H Respiratory Panel Ghotra Adenovirus (Rapid PCR) B.pert (TEM-PCR) B.parapertussis DNA PCR C. pneumoniae DNA (PCR) Coronavirus OC43 (PCR) Coronavirus HKU1 (PCR) Coronavirus 229E (PCR) COVID-19 ([facility]) COVID-19 Clin Com Coronavirus NL63 (PCR) Human Metapneumovir PCR Influenza A (RT-PCR) Influenza B (RT-PCR) M. pneumoniae (PCR) Parainfluenza 1 (PCR) Parainfluenza 2 (PCR) Parainfluenza 3 (PCR) Parainfluenza 4 (PCR) RSV (PCR) Entero/Rhino (PCR) SARS-CoV-2 RNA (RT-PCR) <Hilda Rooney NP - Last Filed: 03/23/21 11:27> Quality Stroke Does the patient have a stroke diagnosis?: No <Hilda Rooney NP - Last Filed: 03/23/21 11:27> VTE Prior VTE?: No <Hilda Rooney NP - Last Filed: 03/23/21 11:27> VTE Risk Level:: Medical - moderate - high <Hilda Rooney NP - Last Filed: 03/23/21 11:27> VTE Device Contraindication: Treatment Not Indicated <Hilda Rooney NP - Last Filed: 03/23/21 11:27> VTE Drug Contraindication: N/A - Med Ordered <Hilda Rooney NP - Last Filed: 03/23/21 11:27>
[2021-03-23 11:15] LABS: Glucose, Whole Blood 297 mg/dL (60-115)
[2021-03-23] MEDS: Insulin Lispro 100 UNIT/ML 3 ML VIAL SUBCUT ×2 (12:12→16:50)
[2021-03-23 15:09] VITALS: BP 109/59; PULSE 86; RESP 20; TEMP 36.4; O2SAT 96
[2021-03-23 15:52] LABS: Glucose, Whole Blood 185 mg/dL (60-115)
[2021-03-23 19:03] VITALS: BP 121/56; PULSE 73; RESP 20; TEMP 36.2; O2SAT 96
[2021-03-23] MEDS: hydrALAZINE HCl 10 MG TABLET PO (21:34)
[2021-03-23] MEDS: rOPINIRole HCL 0.25 MG TABLET PO (21:34)
[2021-03-23] MEDS: Acetaminophen 325 MG TABLET 650 MG PO (21:34)
[2021-03-23] MEDS: carvediloL 6.25 MG TABLET PO (21:34)
[2021-03-23 23:49] VITALS: BP 116/60; PULSE 64; RESP 18; TEMP 37; O2SAT 93
[2021-03-24 04:00] VITALS: BP 115/60; PULSE 69; RESP 20; TEMP 36.5; O2SAT 94
--- NOTE | 2021-03-24 06:25 | PC.NURSE ---
Pt slept well overnight. No difficulty breathing or shortness of breath. OOB to bathroom. Voiding qs. Monitor shows afib, HR 60's-70's with V paced rhythm. Refused poc last night but also refused his HS snack. Will check blood glucose this am.
[2021-03-24 07:08] LABS: Hematocrit 35.7 % (42-52); Hemoglobin 11.9 g/dl (14.0-18.0); Mean Corpuscular HGB Conc 33.3 g/dl (31.0-36.0); Mean Corpuscular Hemoglobin 30.7 pg (27.0-33.0); Mean Corpuscular Volume 92.2 fL (80-98); Mean Platelet Volume 11.2 fL (9.4-12.4); Platelet Count 154 X10*3/uL (160-400); Red Blood Count 3.87 X10*6/uL (4.60-5.80); Red Cell Distribution Width 14.3 % (11.0-16.0); White Blood Count 9.1 X10*3/uL (4.8-10.8)
[2021-03-24 07:26] LABS: B Type Natriuretic Peptide 277 pg/mL (<100)
[2021-03-24 07:44] LABS: Glucose, Whole Blood 194 mg/dL (60-115)
[2021-03-24 07:50] LABS: Anion Gap 14 (12-20); Blood Urea Nitrogen 51 mg/dL (9-16); Calcium 8.6 mg/dL (8.4-10.2); Carbon Dioxide 28 mmol/L (22-29); Chloride 99 mmol/L (96-108); Creatinine Clr Calc Pharmacy 33.3; Estimated Glomerular Filt Rate 34; Glucose Random 207 mg/dL (60-115); Potassium 4.3 mmol/L (3.3-5.1); Sodium 137 mmol/L (135-145)
[2021-03-24] MEDS: Rivaroxaban 15 MG TABLET PO (07:55)
[2021-03-24] MEDS: Insulin Lispro 100 UNIT/ML 3 ML VIAL SUBCUT ×2 (07:55→11:58)
[2021-03-24 07:56] VITALS: BP 115/60; PULSE 69
[2021-03-24] MEDS: Atorvastatin Calcium 80 MG TABLET PO (07:56)
[2021-03-24] MEDS: Tamsulosin HCL 0.4 MG CAPSULE PO (07:56)
[2021-03-24] MEDS: Multivitamin TABLET 1 TAB PO (07:56)
[2021-03-24] MEDS: Colchicine 0.6 MG TABLET PO (07:56)
[2021-03-24] MEDS: carvediloL 6.25 MG TABLET PO (07:56)
[2021-03-24] MEDS: 0.9 % Sodium Chloride Flush 3 ML SYRINGE IVFLUSH (07:56)
[2021-03-24] MEDS: hydrALAZINE HCl 10 MG TABLET PO (07:56)
[2021-03-24 07:57] VITALS: BP 115/60; PULSE 69
[2021-03-24] MEDS: Nitroglycerin 0.4 MG PATCH.TD24 TRANSDERMA (07:57)
[2021-03-24] MEDS: Furosemide 20 MG/2 ML VIAL IVPUSH (07:57)
[2021-03-24] MEDS: allopurinoL 100 MG TABLET PO (07:57)
[2021-03-24 08:00] VITALS: BP 134/70; PULSE 71; RESP 20; TEMP 36.4; O2SAT 97
[2021-03-24 10:58] LABS: Glucose, Whole Blood 218 mg/dL (60-115)
[2021-03-24 11:34] VITALS: BP 120/57; PULSE 76; RESP 20; TEMP 36.2; O2SAT 97
--- NOTE | 2021-03-24 11:50 | PM.CNCAR ---
History of Present Illness History of Present Illness Date of Service: 03/24/21 Chief complaint: Covid 19, CHF Narrative: This is a cardiology consultation regarding congestive heart failure. Patient normally see Dr. Montanez in the office. He has moderate LV systolic dysfunction with restrictive filling defect as well as pulmonary hypertension based on the last office note. Patient states that he took the COVID booster shot few days ago. Subsequently, he developed shortness of breath overnight and some nonspecific side effects from the vaccine. He was unsure if he was having issues related to the bolster short arm was in heart failure but then it seems she came for evaluation and at that time he was actually found to be COVID positive rather. But then there is a question if it is truly COVID positive or false positive and then he had a repeat study with PCR but that is negative. Hence I am not sure if he actually is COVID positive for COVID negative as the tests are contradictory. However, there is also a question if he was also in heart failure and hence we have been asked to see him. Patient states that he is actually much improved since the hospitalization and does not have any shortness of breath today. No other cardiac complaints at this time and he would actually like to get discharged home. Review of Systems Review of Systems: Yes all other systems are reviewed and are negative Cardiovascular: Cardiovascular: Reports as per HPI, Reports no additional cardiovascular complaints, Denies acrocyanosis, Denies cool extremities, Denies painful fingertips, Denies chest pain, Denies chest pain at rest, Denies diaphoresis, Denies syncope, Denies irregular heart rhythm, Denies claudication, Denies leg edema, Denies lightheadedness, Denies palpitations and Reports dyspnea Respiratory: Respiratory: Reports dyspnea Neurologic: Denies syncope Endocrine: Endocrine: Denies palpitations [facility] Past Medical History Medical History Aortic aneurysm Atrial fibrillation Biventricular ICD (implantable cardioverter-defibrillator) in place CAD (coronary artery disease) Chronic heart failure with reduced ejection fraction and diastolic dysfunction Congestive heart failure GERD (gastroesophageal reflux disease) Gout History of GI bleed Hypercholesterolemia Hypertension Ischemic cardiomyopathy Obesity (BMI 30-39.9) TIA (transient ischemic attack) Type 2 diabetes mellitus with hyperglycemia Family History Family History Father CVD (cardiovascular disease) Hypertension Mother Cancer Surgical History Surgical History Coronary artery disease involving coronary bypass graft History of cardiac defibrillator placement History of cholecystectomy Social History Social History Household Members: Family Housing: House Do you presently have visiting nurse or other home services: No Alcohol intake: never Patient Tobacco Use Status: Never used Tobacco Years Smoked: quit 1985 Use of substances other than those prescribed or required for medical reasons: No Currently Displaying Signs/Symptoms of Drug Intoxication Withdrawal: No Have you been hit, kicked, punched, or otherwise hurt by someone within the past year? If so, by whom?: No Do you feel safe in your current relationship?: No Current Relationship Is there a partner from a previous relationship who is making you feel unsafe now?: No Are you made to feel afraid or neglected: No Advance Directives: No Advance Directives Information Provided: No Do you have thoughts of harming others: None Do you have a plan to hurt others: No Plan Recently lost weight without trying: No Eating poorly because of decreased appetite: No Nutrition Risks: No Nutritional Risk Poor oral hygiene: No service: Yes Current occupational status: retired Meds Allergies Allergy/AdvReac Type Severity Reaction Status Date / Time dabigatran etexilate Allergy Unknown indigestion Verified 01/14/21 12:50 [Pradaxa] sacubitril [From ENTRESTO] Allergy Unknown FEELS LIKE Verified 01/14/21 12:50 HAVING A HEART ATTACK valsartan [From ENTRESTO] Allergy Unknown FEELS LIKE Verified 01/14/21 12:50 HAVING A HEART ATTACK Active Medications: Current Medications Acetaminophen (Acetaminophen 325 Mg Tablet) 650 mg PO Q6H PRN PRN Reason: Pain, Mild (Pain Scale 1-3) Last Admin: 03/23/21 21:34 Dose: 650 mg Documented by: Allopurinol (Allopurinol 100 Mg Tablet) 100 mg PO DAILY [facility] Last Admin: 03/24/21 07:57 Dose: 100 mg Documented by: Atorvastatin Calcium (Atorvastatin Calcium 80 Mg Tablet) 80 mg PO DAILY [facility] Last Admin: 03/24/21 07:56 Dose: 80 mg Documented by: Carvedilol (Carvedilol 6.25 Mg Tablet) 6.25 mg PO BID [facility]; Protocol Last Admin: 03/24/21 07:56 Dose: 6.25 mg Documented by: Colchicine (Colchicine 0.6 Mg Tablet) 0.6 mg PO DAILY [facility] Last Admin: 03/24/21 07:56 Dose: 0.6 mg Documented by: Dextrose (Dextrose 50 % 25 Gm/50 Ml Vial) 25 gm IVPUSH Q15M PRN; Protocol PRN Reason: per Hypoglycemia Standing Ord. Furosemide (Furosemide 20 Mg/2 Ml Vial) 20 mg IVPUSH BID@0900,1800 [facility]; Protocol Last Admin: 03/24/21 07:57 Dose: 20 mg Documented by: Glucose (Glucose Gel 15 Gm Gel..Gram.) 15 gm PO Q15M PRN; Protocol PRN Reason: per Hypoglycemia Standing Ord. Hydralazine HCl (Hydralazine Hcl 10 Mg Tablet) 10 mg PO BID [facility]; Protocol Last Admin: 03/24/21 07:56 Dose: 10 mg Documented by: Insulin Human Lispro (Insulin Lispro 100 Unit/Ml 3 Ml Vial) 0 unit SUBCUT QIDACHS [facility]; Protocol Last Admin: 03/24/21 07:55 Dose: 2 unit Documented by: Multivitamins/Vitamin C (Multivitamin Tablet) 1 tab PO DAILY [facility] Last Admin: 03/24/21 07:56 Dose: 1 tab Documented by: Nitroglycerin (Nitroglycerin 0.4 Mg Patch.Td24) 0.4 mg TRANSDERMA DAILY [facility]; Protocol Last Admin: 03/24/21 07:57 Dose: 0.4 mg Documented by: Nitroglycerin (Nitroglycerin 0.4 Mg Tab.Subl) 0.4 mg SUBLINGUAL Q5M PRN PRN Reason: chest pain Ondansetron HCl (Ondansetron Hcl 4 Mg/2 Ml Vial) 4 mg IVPUSH Q8H PRN PRN Reason: Nausea and Vomiting Pharmacy Consult (Consult Rx Perform Med Rec) 1 each MISCELLANE ONCE PRN PRN Reason: Consult order Rivaroxaban (Rivaroxaban 15 Mg Tablet) 15 mg PO DAILY [facility] Last Admin: 03/24/21 07:55 Dose: 15 mg Documented by: Ropinirole HCl (Ropinirole Hcl 0.25 Mg Tablet) 0.25 mg PO BEDTIME [facility] Last Admin: 03/23/21 21:34 Dose: 0.25 mg Documented by: Sodium Chloride (0.9 % Sodium Chloride Flush 3 Ml Syringe) 3 ml IVFLUSH QSHIFT [facility] Last Admin: 03/24/21 07:56 Dose: 3 ml Documented by: Tamsulosin HCl (Tamsulosin Hcl 0.4 Mg Capsule) 0.4 mg PO DAILY [facility] Last Admin: 03/24/21 07:56 Dose: 0.4 mg Documented by: Home Medications Medication Instructions Recorded Confirmed Last Taken Type multivitamin 1 tab PO DAILY 04/12/20 03/22/21 Unknown History bumetanide 1 mg tablet 1 mg PO DAILY tab 03/17/21 03/22/21 Unknown History Physical Exam Vital Signs: Vital Signs: Last Vital Signs Temp 97.1 F 03/24/21 11:34 Pulse 76 03/24/21 11:34 Resp 20 03/24/21 11:34 BP 120/57 L 03/24/21 11:34 Pulse Ox 97 03/24/21 11:34 Body Mass Index 32.4 Const: General: cooperative and no acute distress HENMT: Other: Unremarkable Neck: Neck: Yes normal visual inspection Chest: Chest palpation & inspection: normal inspection of the chest Resp: Auscultation: clear to auscultation bilaterally, crackles (minimal crackles at base) and no wheezes Cardio: Jugular venous distension: no JVD Palpation: normal PMI Heart sounds: S1 normal heart sound present, S2 normal heart sound present, no gallops, no murmurs and no rubs GI: Palpation (GI): Soft to palpation Back/Spine/Pelvis: Other: unremarkable Skin: General skin exam: no rashes or lesions noted Neuro: Cranial nerves: Yes Other cranial nerve findings present Extrem: General: Yes no clubbing, cyanosis or edema Psych: Mental Status: other Results Labs and Meds Result diagrams: 03/24/21 06:17 03/24/21 06:17 Lab results: Laboratory Results - last 24 hr 03/23/21 03/24/21 03/24/21 15:43 06:17 06:17 WBC 9.1 RBC 3.87 L Hgb 11.9 L Hct 35.7 L MCV 92.2 MCH 30.7 MCHC 33.3 RDW 14.3 Plt Count 154 L MPV 11.2 Absolute Nucleated RBC 0.000 Nucleated RBC % (auto) 0.0 Sodium 137 Potassium 4.3 Chloride 99 Carbon Dioxide 28 Anion Gap 14 BUN 51 H Creatinine 1.93 H Estim Creat Clear Calc 33.3 Estimated GFR 34 POC Glucose 185 H Random Glucose 207 H D Calcium 8.6 B-Natriuretic Peptide 03/24/21 03/24/21 03/24/21 06:17 07:36 10:50 WBC RBC Hgb Hct MCV MCH MCHC RDW Plt Count MPV Absolute Nucleated RBC Nucleated RBC % (auto) Sodium Potassium Chloride Carbon Dioxide Anion Gap BUN Creatinine Estim Creat Clear Calc Estimated GFR POC Glucose 194 H 218 H Random Glucose Calcium B-Natriuretic Peptide 277 H ECG Interpretation: Admission EKG with atrial fibrillation, ventricular pacing. Assessment and Plan (1) Acute on chronic systolic (congestive) heart failure: Status: Acute (2) COVID-19: Status: Acute (3) Ischemic cardiomyopathy: Status: Acute (4) Biventricular ICD (implantable cardioverter-defibrillator) in place: Status: Acute (5) Persistent atrial fibrillation: Status: Acute Pertinent labs reviewed. Hemoglobin 11.9. White cells 9.1. Platelets 154. BUN 51. Creatinine is 1.93. High sensitivity troponins 26.5. Cardiac BNP 277. Initial COVID test was positive but PCR not detected. Hence not clear if it is positive or negative. Chest x-ray shows possibility of mild congestive heart failure. Fluid balance chart shows -800 cc. Overall, possible mild heart failure but not clear what the trigger is. Doubt if the COVID booster vaccine led to this. As he is clinically euvolemic, may return to his usual diuretics and be discharged home. We will arrange follow-up appointment in a few days time. Procedures Date of Service Date of Service: 03/24/21
--- NOTE | 2021-03-24 12:00 | P.DS_ITS ---
DS: Providers Provider Date of Service: 03/24/21 Date of admission: 03/22/21 15:32 Primary care physician: Unknown Physician Consults: 03/22/21 15:31 Consult to Cardiology Routine Consulting Provider: Hakan Herring Reason for consultation: chf 03/22/21 15:49 Consult to Infectious Diseases Routine Consulting Provider: Muna Quiroga Reason for consultation: covid 19 Has provider been notified: No Attending physician on discharge: Stiven Monroy Discharging clinician: Yenny Corey DS: Diagnosis Discharge Diagnosis (1) Acute on chronic systolic (congestive) heart failure: Status: Acute (2) COVID-19: Status: Acute (3) Ischemic cardiomyopathy: Status: Acute (4) Biventricular ICD (implantable cardioverter-defibrillator) in place: Status: Acute (5) Persistent atrial fibrillation: Status: Acute (6) Chronic kidney disease (CKD) stage G3b/A1, moderately decreased glomerular filtration rate (GFR) between 30-44 mL/min/1.73 square meter and albuminuria creatinine ratio less than 30 mg/g: Status: Acute DS: Summary Hospital Course Hospital Course: From H&P on day of admission This is a 80 year old man presented to the ER with complaints of worsening shortness of breath that started last night.? He had COVID-19 in April of 2020 and that was vaccinated with the 5 vaccine in July of 2020.? Yesterday he had his booster and developed shortness of breath overnight.? He had some nonradiating chest discomfort with indigestion and frequent belching and flatus.? He denied nausea, vomiting, abdominal pain, fever, chills.? He has a history of congestive heart failure and is on Bumex at home.? In the ears BNP is noted to be elevated at 673, initial troponin 26.5.? COVID-19 was positive. , he was not noted to be hypoxic at all.? His blood pressure was noted to be elevated at 140 6/103.? Last echocardiogram on February 24 showed EF of 35-40% with moderately dilated left atrium.? He was given a dose of IV Bumex, Decadron, Maalox and simethicone.? He will be admitted for further management and treatment of acute heart failure and incidental finding of COVID-19. Heart failure with reduced ejection fraction.? EF 35-40%. The patient was started on IV Lasix for diuresis. BNP trended down from 767 to 277. He was evaluated by Cardiology, no further workup indicated at this time. He will be transitioned back to his home dose of oral diuretics. His respiratory symptoms have improved and he is eager to return home. COVID-19.? Initial [facility] COVID-19 test done in the emergency department was positive. A respiratory pathogen panel was checked and was negative for COVID- 19. He is fully vaccinated and actually received his COVID booster shortly before coming to the emergency department. He also reports having COVID last year. He has previously had detectable levels of antibodies. A repeat covid 19 PCR test was done and returned negative. Initial test was likely false positive. Patient has no symptoms consistent with covid 19. Time Spent with Patient Time attestation: Total time spent providing and/or coordinating discharge services: Discharge coordination time: Greater than 30 minutes Quality: Stroke Does the patient have a stroke diagnosis?: No Physical Exam Vital Signs: Vital Signs: Last Vital Signs Temp 97.1 F 03/24/21 11:34 Pulse 76 03/24/21 11:34 Resp 20 03/24/21 11:34 BP 120/57 L 03/24/21 11:34 Pulse Ox 97 03/24/21 11:34 Body Mass Index 32.4 Const: Nutritional Appearance: well nourished Orientation/consciousness: patient oriented x3 HENMT: Head: Yes normocephalic and Yes atraumatic Eyes: Sclerae: sclerae normal Resp: Effort & Inspection: normal respiratory effort and no respiratory distress Cardio: Rate: regular rate Rhythm: regular rhythm GI: Palpation (GI): Soft to palpation and nontender Neuro: General: patient oriented x3 Cranial nerves: Yes CN's II-XII intact bilaterally and Yes Bilaterally intact EOM present DS: Data Data Completed and Pending Labs on day of discharge: Laboratory Results - last 24 hr 03/23/21 03/24/21 03/24/21 15:43 06:17 06:17 WBC 9.1 RBC 3.87 L Hgb 11.9 L Hct 35.7 L MCV 92.2 MCH 30.7 MCHC 33.3 RDW 14.3 Plt Count 154 L MPV 11.2 Absolute Nucleated RBC 0.000 Nucleated RBC % (auto) 0.0 Sodium 137 Potassium 4.3 Chloride 99 Carbon Dioxide 28 Anion Gap 14 BUN 51 H Creatinine 1.93 H Estim Creat Clear Calc 33.3 Estimated GFR 34 POC Glucose 185 H Random Glucose 207 H D Calcium 8.6 B-Natriuretic Peptide 03/24/21 03/24/21 03/24/21 06:17 07:36 10:50 WBC RBC Hgb Hct MCV MCH MCHC RDW Plt Count MPV Absolute Nucleated RBC Nucleated RBC % (auto) Sodium Potassium Chloride Carbon Dioxide Anion Gap BUN Creatinine Estim Creat Clear Calc Estimated GFR POC Glucose 194 H 218 H Random Glucose Calcium B-Natriuretic Peptide 277 H Discharge Plan Discharge Patient Disposition: Home, Self-Care Discharge Diagnosis: Acute on chronic HFrEF COVID 19 Referrals: Hakan Herring MD [Physician] - 1 Week Physician,Unknown [Primary Care Provider] - 1 Week Discharge Medications: Continued hydralazine 10 mg tablet 10 mg PO BID 90 Days Qty: 180 RF: 3 carvedilol 6.25 mg tablet 6.25 mg PO BID Qty: 180 RF: 3 atorvastatin 80 mg tablet 80 mg PO DAILY Qty: 90 RF: 3 tamsulosin [Flomax] 0.4 mg capsule 0.4 mg PO DAILY 90 Days Qty: 90 RF: 2 ropinirole 0.25 mg tablet 0.25 mg PO BEDTIME Qty: 90 RF: 3 glimepiride 4 mg tablet 4 mg PO QAM Qty: 90 RF: 3 sitagliptin [Januvia] 50 mg tablet 50 mg PO DAILY Qty: 90 RF: 3 rivaroxaban [Xarelto] 15 mg tablet 15 mg PO DAILY Qty: 90 RF: 3 nitroglycerin [Nitrostat] 0.4 mg tablet, sublingual 0.4 mg sublingual Q5M PRN (Reason: chest pain) Qty: 25 RF: 1 colchicine [Colcrys] 0.6 mg tablet 0.6 mg PO DAILY 90 Days Qty: 90 RF: 3 allopurinol 100 mg tablet 100 mg PO DAILY 90 Days Qty: 90 RF: 3 nitroglycerin [Nitro-Dur] 0.4 mg/hr patch 24 hour 1 patch transdermal DAILY 90 Days Qty: 90 RF: 2 multivitamin Tablet 1 tab PO DAILY RF: 0 bumetanide 1 mg tablet 1 mg PO DAILY RF: 0 Discharge Orders: Discharge Order (Routine); Ordered 03/24/21 Ordered By: Yenny Corey Diet: diabetic diet and low salt diet Activity on Discharge: As tolerated Stand Alone Forms: Patient Portal Discharge page Care Plan Goals: Stay healthy enough the hospital Health Concerns: Acute exacerbation of chronic heart failure Plan of Treatment: Continue to take Bumex as prescribed Follow-up with cardiology office as needed Test from 03/22 Likely false positive test for covid 19. PCR test on 03/22 negative for covid 19 and repeat [facility] test done 03/24 negative for covid 19. Assessment: Admitted for acute on chronic heart failure exacerbation. Now stable for discharge home
[2021-03-24 12:47] LABS: COVID-19 Test Negative (Negative); IDNOW Serial# 9DD0AD1C
--- NOTE | 2021-03-24 13:06 | MHC.CM.PN ---
Patient has been medically cleared for dc to home today, no services. Last IMM addressed yesterday.
== END 2021-03-24 14:15 | disposition home or self-care (01) | DRG 177 ==
LOC: HO.ED 15:17 → HO.EDOVER 15:45 → HO.IMC 16:20
PROVIDERS: Family Medicine; Physician Assistant; Admitting Provider Nurse Practitioner Acute Care; Emergency Provider Emergency Medicine; Visit Provider Physician Assistant Medical
DX: U07.1 COVID-19 (principal); I50.23 Acute on chronic systolic (congestive) heart failure; I13.0 Hypertensive heart and chronic kidney disease with heart failure and stage 1 through stage 4 chronic kidney disease, or unspecified chronic kidney disease; I48.19 Other persistent atrial fibrillation; I48.0 Paroxysmal atrial fibrillation; I25.5 Ischemic cardiomyopathy; K21.9 Gastro-esophageal reflux disease without esophagitis; N18.32 Chronic kidney disease, stage 3b; I25.10 Atherosclerotic heart disease of native coronary artery without angina pectoris; Z86.16 Personal history of COVID-19; Z79.891 Long term (current) use of opiate analgesic; Z95.810 Presence of automatic (implantable) cardiac defibrillator; Z79.899 Other long term (current) drug therapy
CPT/HCPCS: 36415; 71045; 80048; 82728; 82947; 83615; 83880; 84484; 85025; 85027; 85379; 85610; 86140; 87633; 87635; 93005; 99284; J1100; J1940

== ENCOUNTER → 2021-07-04 12:31 | Outpatient (BNVA) | payer MEDICARE, OTHER, SELFPAY | PROVIDERS: PCP Internal Medicine; Referring Provider Internal Medicine; Visit Provider Internal Medicine Cardiovascular Disease ==

== ENCOUNTER → 2021-09-15 12:59 | Outpatient (BNVA) | payer MEDICARE, OTHER, SELFPAY | PROVIDERS: PCP Internal Medicine; Referring Provider Internal Medicine; Visit Provider Internal Medicine Cardiovascular Disease | DX: I50.20 Unspecified systolic (congestive) heart failure (principal); I48.20 Chronic atrial fibrillation, unspecified; I25.10 Atherosclerotic heart disease of native coronary artery without angina pectoris; R00.2 Palpitations; Z79.01 Long term (current) use of anticoagulants; Z79.899 Other long term (current) drug therapy; Z45.02 Encounter for adjustment and management of automatic implantable cardiac defibrillator | CPT/HCPCS: 99212 ==

== ENCOUNTER 2022-01-11 07:19 | Outpatient (REF) | payer MEDICARE, OTHER, SELFPAY ==
[2022-01-11 07:47] LABS: MANUAL DIFF FLAG NO
[2022-01-11 08:53] LABS: Basophils Percent Auto 0.5 % (0-2); Eosinophils Absolute Auto 0.1 X10*3/uL (0.0-0.4); Eosinophils Percent Auto 1.4 % (0-4); Hematocrit 36.5 % (42.0-52.0); Hemoglobin 11.9 g/dl (14.0-18.0); Imm Gran Abs Auto 0.03 X10*3/uL (0.00-0.03); Imm Gran Pct Auto 0.4 % (0.0-0.4); Immature Retic Fraction 12.3 % (2.3-13.4); Lymphocytes Absolute Auto 0.7 X10*3/uL (1.2-4.9); Lymphocytes Percent Auto 8.9 % (20-40); Mean Corpuscular HGB Conc 32.6 g/dl (31.0-36.0); Mean Corpuscular Hemoglobin 30.2 pg (27.0-33.0); Mean Corpuscular Volume 92.6 fL (80.0-98.0); Mean Platelet Volume 11.3 fL (9.4-12.4); Monocytes Absolute Auto 0.9 X10*3/uL (0.1-1.2); Monocytes Percent Auto 12.8 % (2-11); Neutrophils Absolute Auto 5.6 x10*3/uL (2.0-8.3); Platelet Count 185 X10*3/uL (160-400); Red Blood Count 3.94 X10*6/uL (4.60-5.80); Red Cell Distribution Width 14.4 % (11.0-16.0); Retic HGB Equivalent 34.8 pg (30.0-35.0); Reticulocyte Percent 2.2 % (0.5-1.8); Reticulocytes Absolute 0.086 X10*6/uL (0.026-0.095); White Blood Count 7.3 X10*3/uL (4.8-10.8)
[2022-01-11 09:25] LABS: B Type Natriuretic Peptide 247 pg/mL (<100)
[2022-01-11 09:31] LABS: Alanine Aminotransferase 16 U/L (0-40); Albumin Level 3.8 g/dL (3.5-5.0); Alkaline Phosphatase 115 U/L (39-117); Anion Gap 12 (12-20); Aspartate Amino Transferase 22 U/L (5-37); Bilirubin Total 1.7 mg/dL (0.0-1.0); Blood Urea Nitrogen 51 mg/dL (9-16); Carbon Dioxide 28 mmol/L (22-29); Chloride 103 mmol/L (96-108); Cholesterol 100 mg/dL; Estimated Glomerular Filt Rate 33; Glucose Random 154 mg/dL (60-115); HDL Cholesterol 34 mg/dL; Iron 72 mcg/dL (45-160); LDL Cholesterol Calculated 49 mg/dl; Percent Iron Saturation 23 % (15-50); Potassium 4.6 mmol/L (3.3-5.1); Sodium 138 mmol/L (135-145); Total Iron Binding Capacity 313 mcg/dL (228-428); Total Protein 7.2 g/dL (6.5-8.0); Triglycerides 86 mg/dL; Unsaturated Iron Binding 241 ug/dL
[2022-01-11 09:41] LABS: Ferritin 184 ng/mL (20-250); Free T4 (Free Thyroxine) 1.13 ng/dL (0.71-1.85); Thyroid Stimulating Hormone 2.32 uIU/mL (0.32-4.0)
[2022-01-11 09:44] LABS: Creatinine Urine 99.08 mg/dL; Microalbum/Creatinine Ratio Ur 487.4 ug/mg cr
[2022-01-11 11:04] LABS: Folate > 20.0 ng/mL (> or = 4.0); Vitamin B12 463 pg/mL (200-900)
== END 2022-01-11 07:20 | disposition home or self-care (01) ==
LOC: HO.LAB 07:19
PROVIDERS: PCP Internal Medicine; Visit Provider Internal Medicine
DX: E11.65 Type 2 diabetes mellitus with hyperglycemia (principal); I50.42 Chronic combined systolic (congestive) and diastolic (congestive) heart failure; I10 Essential (primary) hypertension; E78.00 Pure hypercholesterolemia, unspecified
CPT/HCPCS: 36415; 80053; 80061; 82043; 82607; 82728; 82746; 83540; 83880; 84439; 84443; 85025; 85045

== ENCOUNTER → 2022-03-02 07:15 | Outpatient (REF) | payer MEDICARE, OTHER, SELFPAY ==
--- NOTE | 2022-03-02 07:17 | CA_ITS ---
Transthoracic Echocardiogram Amended Patient (Last, First, Middle): Ethan Macias D Gender: Male Date of : 1940 Age: 81 Procedure Date: 03/02/2022 Procedure Type: Transthoracic Echocardiogram Location: OP Height: 167.64 cm Weight: 86.18 kg BSA: 1.96 m2 Heart Rate: 97 bpm BP: 122 / 66 mmHg Actuarial Clerk: SB Referring MD: Chevy Montanez MD Deliver Driver: Chevy Montanez MD Symptoms: I50.20 - Unspecified systolic (congestive) heart failure Study Quality: Adequate ECG Rhythm: Paced Conclusions: - 1. Moderately dilated left ventricle with moderate to severe LV systolic dysfunction with LVEF of 30-35% with restrictive filling pattern 2. Moderate left atrial enlargement 3. Mild mitral regurgitation with mild mitral annular calcification 4. Mildly elevated right ventricular systolic pressure 5. No gross pericardial effusion Findings Left Ventricle Moderately increased left ventricular cavity size. There is normal left ventricular wall thickness. The left ventricular systolic function is moderate to severely decreased. Spectral Doppler is indicative of a restrictive filling pattern. Peak GLS is -8.1%, which is severely reduced. Wall Motion Rest Echo Findings The inferoseptal wall, inferolateral wall, the mid inferior, and apical septum segments are akinetic. The basal inferior segment is dyskinetic. All other scored wall segments showed normal motion. Right Ventricle Normal right ventricular cavity size. There is low normal right ventricular systolic function. There is an ICD wire seen in the right ventricle. Atria The left atrium is moderately dilated. There is no evidence of interatrial shunt. The right atrium is mildly dilated. A pacemaker wire is identified in the right atrium. Aortic Valve There is mild calcification of the aortic valve. There is no aortic valve stenosis. There is no aortic valve regurgitation. Mitral Valve There is mild anterior and moderate posterior mitral leaflet thickening. There is mild mitral annular calcification. There is mild mitral valve regurgitation. There is no mitral valve stenosis. Pulmonic Valve The pulmonic valve is likely normal. Tricuspid Valve Normal tricuspid valve structure. There is mild tricuspid valve regurgitation. Normal right atrial pressure. Mild pulmonary hypertension is present. Great Vessels The pulmonary artery was not well visualized. There is mild dilatation of the ascending aorta measuring 3.90 cm. Venous The inferior vena cava is mildly dilated and collapses greater than 50% with inspiration. Pericardium/Pleural There is no evidence of pericardial effusion. Prior Study Comparison Changes noted compared to prior study dated: 02/24/2021. LV systolic function is marginally reduced Measurements 2D Linear Measurements IVSd: 0.90 0.6-0.9/0.6-1.0 cm LVIDd: 6.60 3.9-5.3/4.2-5.9 cm LVIDd Index: 3.37 2.4-3.2/2.2-3.1 cm/m2 LVIDs: 5.41 2.0-3.6 cm LVPWd: 0.71 0.7-1.1 cm LA Diam: 5.50 2.7-3.8/3.0-4.0 cm LAIDs Index: 2.81 1.5-2.3 cm/m2 LV Mass: 276.32 67-162/88-224 g LV Mass Index: 140.98 43-95/49-115 g/m2 LVOT Diam: 2.20 3.0+(-)1.3 cm 2D Volumes LA Vol: 46.60 2D Systolic Function EF 4C: 27.90 >55% EF 2C: 41.00 >55% EF BiP: 34.20 >55% Mitral Valve MV Pk E: 1.10 MV Decel Time: 149.00 E'Lateral: 8.12 E'Medial: 4.50 E/E' Med: 24.40 E/E' Lat: 13.50 PHT: 43.00 MVA PHT: 5.12 Decel [place]: 7.38 MR VTI: 1.50 Aortic Valve AoV Pk Dean: 1.39 AoV Mn Dean: 0.98 AoV VTI: 0.26 AoV Pk Grad: 8.00 Aov Mn Grad: 4.00 EDITH Cont.VTI: 2.65 LVOT LVOT Pk Dean: 0.90 LVOT Mn Dean: 0.61 LVOT VTI: 0.18 LVOT Pk Grad: 3.00 LVOT Mn Grad: 2.00 LVOT Diam: 2.20 LVOT Area: 3.80 Diastolic Function MV Pk E: 1.10 E'Medial: 4.50 E/E' Med: 24.40 E' Laterial: 8.12 E/E' Lat: 13.50 Right Ventricle TAPSE (mm): 16.30 TVS' Dean: 7.00 Tricuspid Valve TR Pk Dean: 3.04 TR Pk Grad: 37.00 RA Press: 3.00 RVSP: 40.00 Great Vessels Aorta Sinus of Valsalva: 3.50 2.0-3.5 cm Ao Asc: 3.90 2.1-3.4 cm Pulmonary Valve PV Pk Dean: 0.75 Peak PV Grad: 2.00 Updated in Other Vendor System with Status of Final Chevy Montanez MD electronically signed on 03/02/2022 2:49:37 PM with status of Final
== END ==
LOC: HO.CARD 07:15
PROVIDERS: Visit Provider Internal Medicine Cardiovascular Disease
DX: I50.20 Unspecified systolic (congestive) heart failure (principal)
CPT/HCPCS: 93306; 93356

== ENCOUNTER → 2022-03-23 13:17 | Outpatient (BNVA) | payer MEDICARE, OTHER, SELFPAY | PROVIDERS: PCP Internal Medicine; Referring Provider Internal Medicine; Visit Provider Internal Medicine Cardiovascular Disease | DX: I50.20 Unspecified systolic (congestive) heart failure (principal); I48.20 Chronic atrial fibrillation, unspecified; I25.10 Atherosclerotic heart disease of native coronary artery without angina pectoris; Z95.810 Presence of automatic (implantable) cardiac defibrillator | CPT/HCPCS: 93005; 99212 ==

== ENCOUNTER → 2022-03-28 09:06 | Outpatient (BNVA) | payer MEDICARE, OTHER, SELFPAY | PROVIDERS: PCP Internal Medicine; Visit Provider Urology | DX: N40.1 Benign prostatic hyperplasia with lower urinary tract symptoms (principal); N13.8 Other obstructive and reflux uropathy; Z79.899 Other long term (current) drug therapy | CPT/HCPCS: 99212 ==

== ENCOUNTER 2022-06-18 16:21 | Inpatient (IN) | payer OTHER, MEDICARE, SELFPAY ==
[2022-06-18] VITALS (7 sets, daily range): BP systolic 100–139; BP diastolic 43–77; PULSE 70–83; RESP 11–22; TEMP 36.6–37.2; O2SAT 88–98; BMI 29.8
--- NOTE | 2022-06-18 | ECG_ITS ---
Test Reason : CHEST PAIN Blood Pressure : / mmHG Vent. Rate : 071 BPM Atrial Rate : 051 BPM P-R Int : 000 ms QRS Dur : 186 ms QT Int : 492 ms P-R-T Axes : 000 137 226 degrees QTc Int : 534 ms Ventricular-paced rhythm Biventricular pacemaker detected Abnormal ECG When compared with ECG of 22-MAR-2021 12:45, Vent. rate has decreased BY 5 BPM Referred By: Shravan Avendaño Electronically Signed By:Jonathan Morales
--- NOTE | 2022-06-18 16:40 | ED.SOB ---
HPI - SOB/Dyspnea General Chief Complaint: General Medical Stated Complaint: weakness Time Seen by Provider: 06/18/22 16:30 Source: patient Mode of arrival: EMS Limitations: no limitations History of Present Illness HPI Narrative: Patient 82 years old with history of atrial fibrillation on Xarelto coronary artery disease ischemic cardiomyopathy status post AICD, CKD, diabetes, hypertension been vaccinated against COVID comes here from home by ambulance for increased shortness of breath and cough for last 3 weeks patient tested himself for COVID which was negative been coughing for 3 weeks with worsening of cough for last 3 days feels short of breath and weak no fever or chills on arrival patient is saturating 88% at room air other family member also sick also the patient vomited 3 times today no diarrhea lot of abdominal cramps had melena for 3 days 4 days ago now is normal color stool no chest pain no palpitation Related Data Home Medications Medication Instructions Recorded Confirmed multivitamin 1 tab PO DAILY 04/12/20 06/18/22 allopurinol 100 mg tablet 100 mg PO QPM 06/18/22 06/18/22 atorvastatin 80 mg tablet 80 mg PO QPM 06/18/22 06/18/22 bumetanide 1 mg tablet 1 mg PO DAILY 06/18/22 06/18/22 meclizine 25 mg tablet 25 mg PO TID PRN Dizziness 06/18/22 06/18/22 rivaroxaban 15 mg tablet (Xarelto) 15 mg PO QPM 06/18/22 06/18/22 Previous Rx's Medication Instructions Recorded nitroglycerin 0.4 mg sublingual 0.4 mg sublingual Q5M PRN chest 09/16/20 tablet (Nitrostat) pain #25 tabs carvedilol 6.25 mg tablet 6.25 mg PO BID #180 tabs 07/25/21 sitagliptin phosphate 50 mg tablet 50 mg PO DAILY #90 tabs 09/22/21 (Januvia) glimepiride 4 mg tablet 4 mg PO QAM #90 tabs 10/21/21 ropinirole 0.25 mg tablet 0.25 mg PO BEDTIME #90 tabs 10/21/21 colchicine 0.6 mg tablet (Colcrys) 0.6 mg PO DAILY 90 days #90 tabs 12/21/21 nitroglycerin 0.4 mg/hr 1 patch transdermal DAILY 90 days 12/22/21 transdermal 24 hour patch #90 ea (Nitro-Dur) hydralazine 10 mg tablet 10 mg PO BID 90 days #180 tabs 02/21/22 tamsulosin 0.4 mg capsule (Flomax) 0.4 mg PO BEDTIME 90 days #90 caps 03/28/22 gabapentin 100 mg capsule 100 mg PO BEDTIME 90 days #90 caps 05/24/22 Allergies Allergy/AdvReac Type Severity Reaction Status Date / Time dabigatran etexilate Allergy Unknown indigestion Verified 06/18/22 16:44 [Pradaxa] sacubitril [From ENTRESTO] Allergy Unknown FEELS LIKE Verified 06/18/22 16:44 HAVING A HEART ATTACK valsartan [From ENTRESTO] Allergy Unknown FEELS LIKE Verified 06/18/22 16:44 HAVING A HEART ATTACK Review of Systems Review of Systems: Yes all other systems are reviewed and are negative [facility] Past Medical History Medical History Acute on chronic systolic (congestive) heart failure Aortic aneurysm Biventricular ICD (implantable cardioverter-defibrillator) in place CAD (coronary artery disease) Chronic atrial fibrillation GERD (gastroesophageal reflux disease) Gout Heart failure with reduced ejection fraction History of GI bleed Hypercholesterolemia Hypertension Ischemic cardiomyopathy Obesity (BMI 30-39.9) TIA (transient ischemic attack) Type 2 diabetes mellitus with hyperglycemia Surgical History Coronary artery disease involving coronary bypass graft History of cardiac defibrillator placement History of cholecystectomy Family History Family History Father CVD (cardiovascular disease) Hypertension Mother Cancer Social History Social History Household Members: Family Housing: House Do you presently have visiting nurse or other home services: No Alcohol intake: never Patient Tobacco Use Status: Never used Tobacco Years Smoked: quit 1985 e-Cigarette/Vaping Use: Never Used Second Hand Smoke Exposure: No Use of substances other than those prescribed or required for medical reasons: No Advance Directives: Yes Advance Directives Information Provided: No Advance Directives on File: No service: Yes Current occupational status: retired Physical Exam Vital Signs: Vital Signs: Last Vital Signs Temp 97.6 F 06/19/22 00:20 Pulse 70 06/19/22 00:20 Resp 17 06/19/22 00:20 BP 125/55 L 06/19/22 00:20 Pulse Ox 96 06/19/22 00:20 O2 Del Method 06/19/22 00:20 O2 Flow Rate 2 06/19/22 00:20 BMI result Body Mass Index 29.8 Appearance: Alert. Oriented X3. No acute distress. Eyes: PERRLA, No Nystagmus mild pallor+ ENT: Pharynx normal. Oral Mucosa moist Neck: Normal inspection. Neck supple. CVS: Normal heart rate and rhythm. Pulses normal. Respiratory: No respiratory distress. Equal air entry bilateral, no wheezing/rales/rhonchi Abdomen: Soft and nontender. Bowel sounds are present, no mass palpable, no CVA tenderness Skin: Skin warm and dry. Normal skin color. Normal skin turgor. Extremities: No lower extremity edema. No calf tenderness Neuro: Oriented X 3. No motor deficit. No sensory deficit.No cerebellar signs , cranial nerves II-XII intact Medications Administered Generic Name Dose Route Start Last Admin Trade Name Freq PRN Reason Stop Dose Admin Sodium Chloride 3 ml 06/19/22 00:00 06/19/22 00:53 0.9 % Sodium Chloride Flush 3 Ml Syringe IVFLUSH 3 ml QSHIFT QUETA Administration Discontinued Medications Generic Name Dose Route Start Last Admin Trade Name Freq PRN Reason Stop Dose Admin Albuterol/Ipratropium 3 ml 06/18/22 17:37 06/18/22 17:51 Albuterol/Iprat 2.5/0.5mg 3 Ml Ampul.Neb INHALE 06/18/22 17:38 3 ml ONCE ONE Administration Furosemide 20 mg 06/18/22 17:43 06/18/22 18:07 Furosemide 20 Mg/2 Ml Vial IVPUSH 06/18/22 17:44 20 mg ONCE ONE Administration Protocol Methylprednisolone Sodium Succinate 125 mg 06/18/22 17:37 06/18/22 18:07 Methylprednisolone Sod Succ 125 Mg/2 Ml Vial IVPUSH 06/18/22 17:38 125 mg ONCE ONE Administration Medical Decision Making Medical Decision Making MDM Narrative: Patient has increased cough and shortness of breath for last 3 weeks influenza/COVID/RSV negative chest x-ray showed intense mild interstitial edema lab workup showed elevated BNP with CKD creatinine of 1.98. Will admit patient for CHF exacerbation for IV diuresis Lab Data MDM Lab Attestation statement: I reviewed the patient's lab results. Result Diagrams: 06/18/22 16:58 06/18/22 16:58 Labs: Lab Results 06/18/22 06/18/22 06/18/22 Range/Units 16:58 16:58 16:58 WBC 10.3 (4.8-10.8) X10*3/uL RBC 3.52 L (4.60-5.80) X10*6/uL Hgb 10.5 L (14.0-18.0) g/dl Hct 32.5 L (42.0-52.0) % MCV 92.3 (80.0-98.0) fL MCH 29.8 (27.0-33.0) pg MCHC 32.3 (31.0-36.0) g/dl RDW 15.8 (11.0-16.0) % Plt Count 200 (160-400) X10*3/uL MPV 10.5 (9.4-12.4) fL Immature Gran % (Auto) 0.3 (0.0-0.4) % Neut % (Auto) 84.2 H (45-73) % Lymph % (Auto) 5.1 L (20-40) % [place] % (Auto) 8.1 (2-11) % Eos % (Auto) 1.8 (0-4) % Baso % (Auto) 0.5 (0-2) % Lymph # (Auto) 0.5 L (1.2-4.9) X10*3/uL [place] # (Auto) 0.8 (0.1-1.2) X10*3/uL Eos # (Auto) 0.2 (0.0-0.4) X10*3/uL Baso # (Auto) 0.1 (0.0-0.2) X10*3/uL Abs Immat Gran (auto) 0.03 (0.00-0.03) X10*3/uL Absolute Neuts (auto) 8.7 H (2.0-8.3) x10*3/uL Absolute Nucleated RBC 0.000 (0.0-0.012) X10*3/uL Nucleated RBC % (auto) 0.0 (0.0-0.2) /100WBC Sodium 140 (135-145) mmol/L Potassium 4.0 (3.3-5.1) mmol/L Chloride 100 (96-108) mmol/L Carbon Dioxide 28 (22-29) mmol/L Anion Gap 16 (12-20) BUN 36 H (9-16) mg/dL Creatinine 1.98 H (0.5-1.4) mg/dL Estim Creat Clear Calc 30.2 Estimated GFR 33 Random Glucose 197 H (60-115) mg/dL Lactic Acid (0.5-2.0) mmol/L Calcium 9.2 (8.4-10.2) mg/dL Magnesium 1.9 (1.6-2.6) mg/dL Total Bilirubin 2.8 H (0.0-1.0) mg/dL AST 33 (5-37) U/L ALT 25 (0-40) U/L Alkaline Phosphatase 108 (39-117) U/L Troponin I High Sens (<3.5-35.0) ng/L B-Natriuretic Peptide (<100) pg/mL Total Protein 6.8 (6.5-8.0) g/dL Albumin 3.2 L (3.5-5.0) g/dL Influenza Type A (PCR) NEGATIVE (Negative) Influenza Type B (PCR) NEGATIVE (Negative) RSV RNA Qual (PCR) NEGATIVE (Negative) SARS-CoV-2 RNA (RT-PCR) NEGATIVE (Negative) 06/18/22 06/18/22 06/18/22 Range/Units 16:58 16:58 16:58 WBC (4.8-10.8) X10*3/uL RBC (4.60-5.80) X10*6/uL Hgb (14.0-18.0) g/dl Hct (42.0-52.0) % MCV (80.0-98.0) fL MCH (27.0-33.0) pg MCHC (31.0-36.0) g/dl RDW (11.0-16.0) % Plt Count (160-400) X10*3/uL MPV (9.4-12.4) fL Immature Gran % (Auto) (0.0-0.4) % Neut % (Auto) (45-73) % Lymph % (Auto) (20-40) % [place] % (Auto) (2-11) % Eos % (Auto) (0-4) % Baso % (Auto) (0-2) % Lymph # (Auto) (1.2-4.9) X10*3/uL [place] # (Auto) (0.1-1.2) X10*3/uL Eos # (Auto) (0.0-0.4) X10*3/uL Baso # (Auto) (0.0-0.2) X10*3/uL Abs Immat Gran (auto) (0.00-0.03) X10*3/uL Absolute Neuts (auto) (2.0-8.3) x10*3/uL Absolute Nucleated RBC (0.0-0.012) X10*3/uL Nucleated RBC % (auto) (0.0-0.2) /100WBC Sodium (135-145) mmol/L Potassium (3.3-5.1) mmol/L Chloride (96-108) mmol/L Carbon Dioxide (22-29) mmol/L Anion Gap (12-20) BUN (9-16) mg/dL Creatinine (0.5-1.4) mg/dL Estim Creat Clear Calc Estimated GFR Random Glucose (60-115) mg/dL Lactic Acid 1.3 (0.5-2.0) mmol/L Calcium (8.4-10.2) mg/dL Magnesium (1.6-2.6) mg/dL Total Bilirubin (0.0-1.0) mg/dL AST (5-37) U/L ALT (0-40) U/L Alkaline Phosphatase (39-117) U/L Troponin I High Sens 27.2 (<3.5-35.0) ng/L B-Natriuretic Peptide 1035 H (<100) pg/mL Total Protein (6.5-8.0) g/dL Albumin (3.5-5.0) g/dL Influenza Type A (PCR) (Negative) Influenza Type B (PCR) (Negative) RSV RNA Qual (PCR) (Negative) SARS-CoV-2 RNA (RT-PCR) (Negative) Independent Interpretation I performed an independent interpretation of an: EKG Interpretation: Ventricularly paced rhythm heart rate 71 beats per minute no acute ST-T changes no acute ischemia Discharge Plan Discharge Clinical Impression: Congestive heart failure due to cardiomyopathy, Hypoxia Patient Disposition: Admitted As Inpatient
[2022-06-18 17:04] LABS: MANUAL DIFF FLAG NO
[2022-06-18 17:06] LABS: Basophils Absolute Auto 0.1 X10*3/uL (0.0-0.2); Basophils Percent Auto 0.5 % (0-2); Eosinophils Absolute Auto 0.2 X10*3/uL (0.0-0.4); Eosinophils Percent Auto 1.8 % (0-4); Hematocrit 32.5 % (42.0-52.0); Hemoglobin 10.5 g/dl (14.0-18.0); Imm Gran Abs Auto 0.03 X10*3/uL (0.00-0.03); Imm Gran Pct Auto 0.3 % (0.0-0.4); Lymphocytes Absolute Auto 0.5 X10*3/uL (1.2-4.9); Lymphocytes Percent Auto 5.1 % (20-40); Mean Corpuscular HGB Conc 32.3 g/dl (31.0-36.0); Mean Corpuscular Hemoglobin 29.8 pg (27.0-33.0); Mean Corpuscular Volume 92.3 fL (80.0-98.0); Mean Platelet Volume 10.5 fL (9.4-12.4); Monocytes Absolute Auto 0.8 X10*3/uL (0.1-1.2); Monocytes Percent Auto 8.1 % (2-11); Neutrophils Absolute Auto 8.7 x10*3/uL (2.0-8.3); Neutrophils Percent Auto 84.2 % (45-73); Platelet Count 200 X10*3/uL (160-400); Red Blood Count 3.52 X10*6/uL (4.60-5.80); Red Cell Distribution Width 15.8 % (11.0-16.0); White Blood Count 10.3 X10*3/uL (4.8-10.8)
[2022-06-18 17:27] LABS: Lactic Acid 1.3 mmol/L (0.5-2.0)
[2022-06-18 17:34] LABS: Alanine Aminotransferase 25 U/L (0-40); Albumin Level 3.2 g/dL (3.5-5.0); Alkaline Phosphatase 108 U/L (39-117); Anion Gap 16 (12-20); Aspartate Amino Transferase 33 U/L (5-37); Bilirubin Total 2.8 mg/dL (0.0-1.0); Blood Urea Nitrogen 36 mg/dL (9-16); Calcium 9.2 mg/dL (8.4-10.2); Carbon Dioxide 28 mmol/L (22-29); Chloride 100 mmol/L (96-108); Creatinine Clr Calc Pharmacy 30.2; Estimated Glomerular Filt Rate 33; Glucose Random 197 mg/dL (60-115); Magnesium 1.9 mg/dL (1.6-2.6); Sodium 140 mmol/L (135-145); Total Protein 6.8 g/dL (6.5-8.0)
[2022-06-18 17:37] LABS: B Type Natriuretic Peptide 1035 pg/mL (<100)
[2022-06-18 17:38] LABS: Troponin-I High Sensitivity 27.2 ng/L (<3.5-35.0)
[2022-06-18 17:53] LABS: Influenza A PCR NEGATIVE (Negative); Influenza B PCR NEGATIVE (Negative); Resp Syncy Virus RNA Qual PCR NEGATIVE (Negative); SARS COV2 PCR INHOUSE NEGATIVE (Negative)
--- NOTE | 2022-06-18 18:55 | PC.NURSE ---
med rec completed with pt and his son based of pt med list and medical record
--- NOTE | 2022-06-18 19:32 | PC.NURSE ---
Pt's V/ Sare stable, pt is a/o x5, pt appears having deep difficult breathing. Pt is on the monitor and it shows a-fib. Pt is on o2 2L NC d/t diminished lung sounds.
--- NOTE | 2022-06-18 20:09 | PM.IMHP ---
History of Present Illness Date of Service: 06/18/22 Chief Complaint: SOB 82-year-old male with past medical history of ischemic CHF, biventricular ICD, CAD, chronic AFib, GERD, hyperlipidemia, hypertension, diabetes, as well as TIA presents to the hospital with complaints of shortness of breath, and chest congestion. Patient reports that his symptoms started about a month ago without cold symptoms, chest congestion, he reports that he started taking Mucinex the noticed his stool becoming black entirely which has now resolved, he reports that he started having increased belching, but continued to have bowel movements. Patient reports that today he felt blah , felt dizzy, has had increased dry cough, reports orthopnea, PND, had multiple episodes of vomiting, and increased dyspnea especially on exertion. He also complaining of decreased oral intake. Id on arrival to the ED patient noted to be hypoxic with 88% on room air, otherwise stable Labs are significant for WBC count of 10.3, hemoglobin of 10.5 dropped from 11.9 in December, hematocrit of 32.5 BUN of 36, creatinine of 1.98, BNP of 1035 Viral serology negative Chest x-ray shows mild peribronchial cuffing with increased interstitial opacities suggests interstitial edema Review of Systems Review of Systems: Yes all other systems are reviewed and are negative [facility] Medical History Acute on chronic systolic (congestive) heart failure Aortic aneurysm Biventricular ICD (implantable cardioverter-defibrillator) in place CAD (coronary artery disease) Chronic atrial fibrillation GERD (gastroesophageal reflux disease) Gout Heart failure with reduced ejection fraction History of GI bleed Hypercholesterolemia Hypertension Ischemic cardiomyopathy Obesity (BMI 30-39.9) TIA (transient ischemic attack) Type 2 diabetes mellitus with hyperglycemia Family History Father CVD (cardiovascular disease) Hypertension Mother Cancer Surgical History Coronary artery disease involving coronary bypass graft History of cardiac defibrillator placement History of cholecystectomy Social History Household Members: Family Housing: House Do you presently have visiting nurse or other home services: No Alcohol intake: never Patient Tobacco Use Status: Never used Tobacco Years Smoked: quit 1985 e-Cigarette/Vaping Use: Never Used Second Hand Smoke Exposure: No Use of substances other than those prescribed or required for medical reasons: No Advance Directives: Yes Advance Directives Information Provided: No Advance Directives on File: No service: Yes Current occupational status: retired Meds Allergies Allergy/AdvReac Type Severity Reaction Status Date / Time dabigatran etexilate Allergy Unknown indigestion Verified 06/18/22 16:44 [Pradaxa] sacubitril [From ENTRESTO] Allergy Unknown FEELS LIKE Verified 06/18/22 16:44 HAVING A HEART ATTACK valsartan [From ENTRESTO] Allergy Unknown FEELS LIKE Verified 06/18/22 16:44 HAVING A HEART ATTACK Home Medications Medication Instructions Recorded Confirmed Last Taken Type multivitamin 1 tab PO DAILY 04/12/20 06/18/22 Unknown History allopurinol 100 mg tablet 100 mg PO QPM 06/18/22 06/18/22 Unknown History atorvastatin 80 mg tablet 80 mg PO QPM 06/18/22 06/18/22 Unknown History bumetanide 1 mg tablet 1 mg PO DAILY 06/18/22 06/18/22 Unknown History meclizine 25 mg tablet 25 mg PO TID PRN Dizziness 06/18/22 06/18/22 Unknown History rivaroxaban 15 mg tablet (Xarelto) 15 mg PO QPM 06/18/22 06/18/22 Unknown History Physical Exam Vital Signs and Narrative: Vital Signs: Last Vital Signs Temp 98.9 F 06/18/22 19:54 Pulse 74 06/18/22 19:54 Resp 16 06/18/22 19:54 BP 124/56 L 06/18/22 19:54 Pulse Ox 95 06/18/22 19:54 O2 Del Method 06/18/22 19:54 O2 Flow Rate 2 06/18/22 19:29 BMI result Body Mass Index 29.8 Const: General: cooperative and no acute distress Orientation/consciousness: patient oriented x3 Eyes: General: appearance normal, both eyes and all related structures Resp: Effort & Inspection: normal respiratory effort Cardio: Rate: regular rate GI: Palpation (GI): Soft to palpation Auscultation: normal bowel sounds Skin: General skin exam: no rashes or lesions noted Neuro: General: patient oriented x3 Cognition (Neuro): normal cognition Extrem: General: Yes normal to inspection and Yes no pedal edema Results Labs CBC and Chem 7: 06/18/22 16:58 06/19/22 05:37 Labs: Laboratory Results - last 24 hr 06/18/22 06/18/22 06/18/22 16:58 16:58 16:58 MCV 92.3 MCH 29.8 MCHC 32.3 RDW 15.8 Plt Count 200 MPV 10.5 Immature Gran % (Auto) 0.3 Neut % (Auto) 84.2 H Lymph % (Auto) 5.1 L [place] % (Auto) 8.1 Eos % (Auto) 1.8 Baso % (Auto) 0.5 Lymph # (Auto) 0.5 L [place] # (Auto) 0.8 Eos # (Auto) 0.2 Baso # (Auto) 0.1 Abs Immat Gran (auto) 0.03 Absolute Neuts (auto) 8.7 H Absolute Nucleated RBC 0.000 Nucleated RBC % (auto) 0.0 Anion Gap 16 Estim Creat Clear Calc 30.2 Estimated GFR 33 Random Glucose 197 H Lactic Acid Calcium 9.2 Magnesium 1.9 Total Bilirubin 2.8 H AST 33 ALT 25 Alkaline Phosphatase 108 Troponin I High Sens B-Natriuretic Peptide Total Protein 6.8 Albumin 3.2 L Influenza Type A (PCR) NEGATIVE Influenza Type B (PCR) NEGATIVE RSV RNA Qual (PCR) NEGATIVE SARS-CoV-2 RNA (RT-PCR) NEGATIVE 06/18/22 06/18/22 06/18/22 16:58 16:58 16:58 MCV MCH MCHC RDW Plt Count MPV Immature Gran % (Auto) Neut % (Auto) Lymph % (Auto) [place] % (Auto) Eos % (Auto) Baso % (Auto) Lymph # (Auto) [place] # (Auto) Eos # (Auto) Baso # (Auto) Abs Immat Gran (auto) Absolute Neuts (auto) Absolute Nucleated RBC Nucleated RBC % (auto) Anion Gap Estim Creat Clear Calc Estimated GFR Random Glucose Lactic Acid 1.3 Calcium Magnesium Total Bilirubin AST ALT Alkaline Phosphatase Troponin I High Sens 27.2 B-Natriuretic Peptide 1035 H Total Protein Albumin Influenza Type A (PCR) Influenza Type B (PCR) RSV RNA Qual (PCR) SARS-CoV-2 RNA (RT-PCR) Imaging Radiologist's Impressions: Impressions Chest X-Ray 06/18/22 17:15 IMPRESSION: Mild peribronchial cuffing with increased interstitial opacities suggesting interstitial edema or small airways process such as bronchitis or atypical/viral infection. Cardiac silhouette is mildly enlarged unchanged from prior. Assessment and Plan (1) Congestive heart failure due to cardiomyopathy: Status: Acute (2) Acute respiratory failure with hypoxia: Status: Acute Plan 82-year-old male with past medical history of CHF with an ejection fraction of 30-35% on Bumex daily presents to the hospital complaints of orthopnea PND, shortness of breath found to have CHF exacerbation # acute CHF exacerbation - elevated BNP, chest x-ray showing pulmonary congestion, has PND, orthopnea, dyspnea - will treat with IV Bumex - low sodium diet, strict I&O, daily weight - monitor respiratory status - cardiology consulted # acute respiratory failure with hypoxia - secondary to CHF - 85% on room air - continue oxygen supplement as required - monitor respiratory status # diabetes - low-dose sliding scale insulin - diabetic diet # CKD stage III - a baseline - monitor BMP # chronic AFib - continue Xarelto and carvedilol DVT prophylaxis : Xarelto Given patient's acute CHF exacerbation requiring IV diuretics patient required minimum 2 night inpatient hospital stay for further management and monitoring Time Spent With Patient Time: Total time managing care of this patient today ____ minutes. Quality Stroke Does the patient have a stroke diagnosis?: No VTE Prior VTE?: No VTE Risk Level:: Medical - moderate - high VTE Device Contraindication: Treatment Not Indicated VTE Drug Contraindication: N/A - Med Ordered
[2022-06-19] VITALS (9 sets, daily range): BP systolic 104–166; BP diastolic 48–66; PULSE 70–82; RESP 16–24; TEMP 36.1–37.1; O2SAT 90–97; BMI 30.5
[2022-06-19 06:27] LABS: Alanine Aminotransferase 23 U/L (0-40); Albumin Level 3.3 g/dL (3.5-5.0); Alkaline Phosphatase 96 U/L (39-117); Anion Gap 17 (12-20); Aspartate Amino Transferase 22 U/L (5-37); Bilirubin Total 2.5 mg/dL (0.0-1.0); Blood Urea Nitrogen 41 mg/dL (9-16); Calcium 8.7 mg/dL (8.4-10.2); Carbon Dioxide 27 mmol/L (22-29); Chloride 100 mmol/L (96-108); Creatinine Clr Calc Pharmacy 26.9; Estimated Glomerular Filt Rate 29; Glucose Random 297 mg/dL (60-115); Potassium 4.1 mmol/L (3.3-5.1); Sodium 140 mmol/L (135-145); Total Protein 6.7 g/dL (6.5-8.0)
--- NOTE | 2022-06-19 07:17 | PHA.MEDREC ---
Pharmacy Consult ? Medication Reconciliation Pharmacy has reviewed the medication reconciliation completed by Ange. There are no remarkable issues for provider's attention. Heather Lopez, LienD
--- NOTE | 2022-06-19 07:47 | CA_ITS ---
Transthoracic Echocardiogram Patient (Last, First, Middle): Ethan Macias D Gender: Male Date of : 1940 Age: 82 Procedure Date: 06/19/2022 Procedure Type: Transthoracic Echocardiogram Location: ER Height: 167.64 cm Weight: 83.92 kg BSA: 1.93 m2 Heart Rate: bpm BP: 147 / 63 mmHg Contact Lens Technician: SYDNEY Referring MD: Dominick Blank MD Symptoms: CHF Study Quality: Adequate Conclusions: - Moderately increased left ventricular cavity size. There is normal left ventricular wall thickness. The left ventricular systolic function is severely decreased. The visually estimated ejection fraction is between 20-25%. - E/E prime ratio is >15, consistent with elevated filling pressures. - The basal inferior and mid inferior segments are akinetic. - Mildly increased right ventricular cavity size. There is mildly decreased right ventricular systolic function. - The left atrium is severely dilated. The right atrium is severely dilated. - There is moderate to severe mitral valve regurgitation. - There is mild tricuspid valve regurgitation. Significantly elevated right atrial pressure. Moderate to severe pulmonary hypertension is present. - There is mild dilatation of the sinuses of Valsalva measuring 3.71 cm and mild dilatation of the ascending aorta measuring 3.90 cm. Findings Left Ventricle Moderately increased left ventricular cavity size. There is normal left ventricular wall thickness. The left ventricular systolic function is severely decreased. The visually estimated ejection fraction is between 20 25%. There is evidence of regional wall motion abnormalities. There is severe global hypokinesis. Abnormal diastolic function is noted. Spectral Doppler is indicative of a pseudonormal filling pattern. E/E prime ratio is >15, consistent with elevated filling pressures. Wall Motion Rest Echo Findings The basal inferior and mid inferior segments are akinetic. Right Ventricle Mildly increased right ventricular cavity size. There is mildly decreased right ventricular systolic function. There is a pacemaker wire seen in the right ventricle. Atria The left atrium is severely dilated. The right atrium is severely dilated. Aortic Valve The aortic valve was not well visualized. There is no aortic valve stenosis. There is no aortic valve regurgitation. Mitral Valve The posterior mitral leaflet has restricted mobility. There is moderate mitral annular calcification. There is moderate to severe mitral valve regurgitation. There is no mitral valve stenosis. Pulmonic Valve Normal pulmonic valve structure and function. There is no pulmonic valve regurgitation. Tricuspid Valve Normal tricuspid valve structure. There is mild tricuspid valve regurgitation. Significantly elevated right atrial pressure. Moderate to severe pulmonary hypertension is present. Great Vessels There is mild dilatation of the sinuses of Valsalva measuring 3.71 cm and mild dilatation of the ascending aorta measuring 3.90 cm. The visualized portions of the pulmonary artery and branches are normal. Venous The inferior vena cava is dilated and collapses less than 50% with inspiration. Pericardium/Pleural There is no evidence of pericardial effusion. Prior Study Comparison Changes noted compared to prior study dated: 03/02/2022. EF 20-25%, moderate to severe MR, Moderate pulm HTN. Measurements 2D Linear Measurements IVSd: 0.95 0.6-0.9/0.6-1.0 cm LVIDd: 6.44 3.9-5.3/4.2-5.9 cm LVIDd Index: 3.34 2.4-3.2/2.2-3.1 cm/m2 LVIDs: 5.68 2.0-3.6 cm LVPWd: 0.94 0.7-1.1 cm LA Diam: 3.90 2.7-3.8/3.0-4.0 cm LAIDs Index: 2.02 1.5-2.3 cm/m2 LV Mass: 324.66 67-162/88-224 g LV Mass Index: 168.22 43-95/49-115 g/m2 LVOT Diam: 2.20 3.0+(-)1.3 cm 2D Systolic Function EF 4C: 33.30 >55% EF 2C: 35.40 >55% EF BiP: 35.30 >55% Mitral Valve MV Pk E: 1.02 MV PK A: 0.38 MV Decel Time: 125.00 E/A: 2.70 E'Lateral: 7.83 E'Medial: 5.33 E/E' Med: 19.10 E/E' Lat: 13.00 PHT: 37.00 MVA PHT: 5.95 Decel Stanley: 8.15 Aortic Valve AoV Pk Dean: 1.63 AoV Mn Dean: 1.20 AoV VTI: 0.39 AoV Pk Grad: 11.00 Aov Mn Grad: 6.00 EDITH Cont.VTI: 1.99 LVOT LVOT Pk Dean: 0.93 LVOT Mn Dean: 0.66 LVOT VTI: 0.21 LVOT Pk Grad: 3.00 LVOT Mn Grad: 2.00 LVOT Diam: 2.20 LVOT Area: 3.80 Diastolic Function MV Pk E: 1.02 MV Pk A: 0.38 E/A: 2.70 E'Medial: 5.33 E/E' Med: 19.10 E' Laterial: 7.83 E/E' Lat: 13.00 Right Ventricle TAPSE (mm): 18.30 TVS' Dean: 10.80 Tricuspid Valve TR Pk Dean: 3.19 TR Pk Grad: 41.00 RA Press: 15.00 RVSP: 56.00 Great Vessels Aorta Sinus of Valsalva: 3.71 2.0-3.[address] Ridge: 3.03 1.7-3.4 cm Ao Asc: 3.90 2.1-3.4 cm Updated in Other Vendor System with Status of Final Jonathan Morales MD electronically signed on 06/20/2022 10:31:01 AM with status of Final
[2022-06-19] MEDS: Insulin Lispro 100 UNIT/ML 3 ML VIAL SUBCUT ×3 (08:23→22:37)
[2022-06-19] MEDS: carvediloL 6.25 MG TABLET PO ×2 (08:24→22:38)
[2022-06-19] MEDS: Bumetanide 1 MG/4 ML VIAL IVPUSH ×2 (08:25→17:01)
[2022-06-19] MEDS: hydrALAZINE HCl 10 MG TABLET PO ×2 (08:25→22:38)
[2022-06-19] MEDS: Multivitamin TABLET 1 TAB PO (08:25)
[2022-06-19 09:20] LABS: OBS Int Ctl Valid YES; OBS1 NEGATIVE (NEGATIVE)
[2022-06-19] MEDS: SITagliptin Phosphate 50 MG TABLET PO (09:28)
[2022-06-19] MEDS: Colchicine 0.6 MG TABLET PO (09:29)
--- NOTE | 2022-06-19 09:35 | HO.PM.IMPN ---
Subjective Subjective Date of Service: 06/19/22 Interval History: cc: sob interval history: some improvement Cardiovascular Cardiovascular: Reports no additional cardiovascular complaints Gastrointestinal Gastrointestinal: Reports no additional gastrointestinal complaints Physical Exam Vital Signs: Vital Signs: Last Vital Signs Temp 98 F 06/19/22 07:19 Pulse 76 06/19/22 08:26 Resp 24 H 06/19/22 08:26 BP 166/55 H 06/19/22 08:26 Pulse Ox 96 06/19/22 08:26 O2 Del Method 06/19/22 08:26 O2 Flow Rate 2 06/19/22 08:26 BMI result Body Mass Index 30.5 General: AO X 3, no acute distress Resp: Crackles bilateral, no accessory muscles used CVS: S1,S2,RRR GI: soft, non tender, non distended Neuro: motor grossly intact, alert Psych: appropriate affect, appropriate insight Objective Data Active Medications Acetaminophen (Acetaminophen 325 Mg Tablet) 650 mg PO Q6H PRN PRN Reason: Pain, Mild (Pain Scale 1-3) Allopurinol (Allopurinol 100 Mg Tablet) 100 mg PO BEDTIME [facility] Atorvastatin Calcium (Atorvastatin Calcium 80 Mg Tablet) 80 mg PO BEDTIME [facility] Bumetanide (Bumetanide 1 Mg/4 Ml Vial) 1 mg IVPUSH BID@0900,1700 [facility]; Protocol Last Admin: 06/19/22 08:25 Dose: 1 mg Documented By: IBRAHIMA Carvedilol (Carvedilol 6.25 Mg Tablet) 6.25 mg PO BID [facility]; Protocol Last Admin: 06/19/22 08:24 Dose: 6.25 mg Documented By: IBRAHIMA Colchicine (Colchicine 0.6 Mg Tablet) 0.6 mg PO DAILY [facility] Last Admin: 06/19/22 09:29 Dose: 0.6 mg Documented By: IBRAHIMA Dextrose (Dextrose 50 % 25 Gm/50 Ml Syringe) 25 gm IVPUSH Q15M PRN; Protocol PRN Reason: per Hypoglycemia Standing Ord. Docusate Sodium (Docusate Sodium 100 Mg Capsule) 100 mg PO DAILY PRN PRN Reason: Constipation Gabapentin (Gabapentin 100 Mg Capsule) 100 mg PO BEDTIME [facility] Glucose (Glucose Gel 15 Gm Gel..Gram.) 15 gm PO Q15M PRN; Protocol PRN Reason: per Hypoglycemia Standing Ord. Hydralazine HCl (Hydralazine Hcl 10 Mg Tablet) 10 mg PO BID [facility]; Protocol Last Admin: 06/19/22 08:25 Dose: 10 mg Documented By: IBRAHIMA Insulin Human Lispro (Insulin Lispro 100 Unit/Ml 3 Ml Vial) 0 unit SUBCUT QIDACHS [facility]; Protocol Last Admin: 06/19/22 08:23 Dose: 6 unit Documented By: IBRAHIMA Multivitamins/Vitamin C (Multivitamin Tablet) 1 tab PO DAILY [facility] Last Admin: 06/19/22 08:25 Dose: 1 tab Documented By: IBRAHIMA Ondansetron HCl (Ondansetron Hcl 4 Mg/2 Ml Vial) 4 mg IVPUSH Q8H PRN PRN Reason: Nausea and Vomiting Rivaroxaban (Rivaroxaban 15 Mg Tablet) 15 mg PO BEDTIME [facility] Ropinirole HCl (Ropinirole Hcl 0.25 Mg Tablet) 0.25 mg PO BEDTIME [facility] Sitagliptin Phosphate (Sitagliptin Phosphate 50 Mg Tablet) 50 mg PO DAILY [facility] Last Admin: 06/19/22 09:28 Dose: 50 mg Documented By: IBRAHIMA Sodium Chloride (0.9 % Sodium Chloride Flush 3 Ml Syringe) 3 ml IVFLUSH QSHIFT [facility] Last Admin: 06/19/22 08:25 Dose: 3 ml Documented By: IBRAHIMA Tamsulosin HCl (Tamsulosin Hcl 0.4 Mg Capsule) 0.4 mg PO BEDTIME [facility] Labs CBC & Chem 7: 06/18/22 16:58 06/19/22 05:37 Labs: Laboratory Results - last 24 hr 06/18/22 06/18/22 06/18/22 16:58 16:58 16:58 MCV 92.3 MCH 29.8 MCHC 32.3 RDW 15.8 Plt Count 200 MPV 10.5 Immature Gran % (Auto) 0.3 Neut % (Auto) 84.2 H Lymph % (Auto) 5.1 L Swain % (Auto) 8.1 Eos % (Auto) 1.8 Baso % (Auto) 0.5 Lymph # (Auto) 0.5 L Swain # (Auto) 0.8 Eos # (Auto) 0.2 Baso # (Auto) 0.1 Abs Immat Gran (auto) 0.03 Absolute Neuts (auto) 8.7 H Absolute Nucleated RBC 0.000 Nucleated RBC % (auto) 0.0 Anion Gap 16 Estim Creat Clear Calc 30.2 Estimated GFR 33 POC Glucose Random Glucose 197 H Lactic Acid Calcium 9.2 Magnesium 1.9 Total Bilirubin 2.8 H AST 33 ALT 25 Alkaline Phosphatase 108 Troponin I High Sens B-Natriuretic Peptide Total Protein 6.8 Albumin 3.2 L Stool Occult Blood Influenza Type A (PCR) NEGATIVE Influenza Type B (PCR) NEGATIVE RSV RNA Qual (PCR) NEGATIVE SARS-CoV-2 RNA (RT-PCR) NEGATIVE 06/18/22 06/18/22 06/18/22 16:58 16:58 16:58 MCV MCH MCHC RDW Plt Count MPV Immature Gran % (Auto) Neut % (Auto) Lymph % (Auto) Swain % (Auto) Eos % (Auto) Baso % (Auto) Lymph # (Auto) Swain # (Auto) Eos # (Auto) Baso # (Auto) Abs Immat Gran (auto) Absolute Neuts (auto) Absolute Nucleated RBC Nucleated RBC % (auto) Anion Gap Estim Creat Clear Calc Estimated GFR POC Glucose Random Glucose Lactic Acid 1.3 Calcium Magnesium Total Bilirubin AST ALT Alkaline Phosphatase Troponin I High Sens 27.2 B-Natriuretic Peptide 1035 H Total Protein Albumin Stool Occult Blood Influenza Type A (PCR) Influenza Type B (PCR) RSV RNA Qual (PCR) SARS-CoV-2 RNA (RT-PCR) 06/18/22 06/19/22 06/19/22 21:01 05:37 07:00 MCV MCH MCHC RDW Plt Count MPV Immature Gran % (Auto) Neut % (Auto) Lymph % (Auto) Swain % (Auto) Eos % (Auto) Baso % (Auto) Lymph # (Auto) Swain # (Auto) Eos # (Auto) Baso # (Auto) Abs Immat Gran (auto) Absolute Neuts (auto) Absolute Nucleated RBC Nucleated RBC % (auto) Anion Gap 17 Estim Creat Clear Calc 26.9 Estimated GFR 29 POC Glucose 158 H 282 H Random Glucose 297 H D Lactic Acid Calcium 8.7 Magnesium Total Bilirubin 2.5 H AST 22 ALT 23 Alkaline Phosphatase 96 Troponin I High Sens B-Natriuretic Peptide Total Protein 6.7 Albumin 3.3 L Stool Occult Blood Influenza Type A (PCR) Influenza Type B (PCR) RSV RNA Qual (PCR) SARS-CoV-2 RNA (RT-PCR) 06/19/22 09:08 MCV MCH MCHC RDW Plt Count MPV Immature Gran % (Auto) Neut % (Auto) Lymph % (Auto) Swain % (Auto) Eos % (Auto) Baso % (Auto) Lymph # (Auto) Swain # (Auto) Eos # (Auto) Baso # (Auto) Abs Immat Gran (auto) Absolute Neuts (auto) Absolute Nucleated RBC Nucleated RBC % (auto) Anion Gap Estim Creat Clear Calc Estimated GFR POC Glucose Random Glucose Lactic Acid Calcium Magnesium Total Bilirubin AST ALT Alkaline Phosphatase Troponin I High Sens B-Natriuretic Peptide Total Protein Albumin Stool Occult Blood NEGATIVE Influenza Type A (PCR) Influenza Type B (PCR) RSV RNA Qual (PCR) SARS-CoV-2 RNA (RT-PCR) Assessment and Plan (1) Acute respiratory failure with hypoxia: Status: Acute Plan 82-year-old male with past medical history of CAD, chronic afib, gout, CKD IV, BPH, DM, HTN,chronic systolic CHF with an ejection fraction of 30-35% on Bumex daily presented to the hospital complaints of orthopnea PND, shortness of breath found to have CHF exacerbation acute hypoxic respiratory failure due to acute on chronic systolic chf iv bumex wean o2 monitor bmp DM insulin, pocs chronic afib coreg, xarelto CKD IV stable, monitor CAD xarelto, statin DVT prophylaxis : Xarelto full code reason for continued hospitalization: iv diuresis Time Spent With Patient Time: Total time managing care of this patient today ____ minutes. Quality Stroke Does the patient have a stroke diagnosis?: No VTE Prior VTE?: No VTE Risk Level:: Medical - moderate - high VTE Device Contraindication: Treatment Not Indicated VTE Drug Contraindication: N/A - Med Ordered
--- NOTE | 2022-06-19 11:06 | PC.NURSE ---
beside echocardiogram is being done.
--- NOTE | 2022-06-19 12:33 | MHC.CM.PN ---
Met with pt to discuss d/c planning needs: pt resides alone, active and independent: no services. States he will return to prior level of care upon d/c. HCP on file, vax x5, IMM filed: son to transport if pt' d/c'd before 1pm as son works 2 - 10p. CM to follow.
[2022-06-19] MEDS: Atorvastatin Calcium 80 MG TABLET PO (22:38)
[2022-06-19] MEDS: allopurinoL 100 MG TABLET PO (22:38)
[2022-06-19] MEDS: Tamsulosin HCL 0.4 MG CAPSULE PO (22:38)
[2022-06-19] MEDS: Gabapentin 100 MG CAPSULE PO (22:38)
[2022-06-19] MEDS: rOPINIRole HCL 0.25 MG TABLET PO (22:39)
[2022-06-19] MEDS: Rivaroxaban 15 MG TABLET PO (22:39)
[2022-06-20] VITALS (7 sets, daily range): BP systolic 98–124; BP diastolic 53–58; PULSE 67–75; RESP 16–20; TEMP 35.9–36.4; O2SAT 92–100
--- NOTE | 2022-06-20 01:47 | PC.NURSE ---
Pt was O2 level was 88%-90 on room air so I put him on 2L NC
[2022-06-20 06:32] LABS: Hemoglobin 10.2 g/dl (14.0-18.0); Mean Corpuscular Hemoglobin 31.7 pg (27.0-33.0); Mean Corpuscular Volume 93.2 fL (80.0-98.0); Mean Platelet Volume 10.8 fL (9.4-12.4); Platelet Count 226 X10*3/uL (160-400); Red Blood Count 3.22 X10*6/uL (4.60-5.80); Red Cell Distribution Width 15.9 % (11.0-16.0); White Blood Count 11.7 X10*3/uL (4.8-10.8)
[2022-06-20 06:49] LABS: Anion Gap 11 (12-20); Blood Urea Nitrogen 50 mg/dL (9-16); Calcium 8.6 mg/dL (8.4-10.2); Carbon Dioxide 31 mmol/L (22-29); Chloride 102 mmol/L (96-108); Estimated Glomerular Filt Rate 28; Glucose Fasting 72 mg/dL (60-99); Potassium 3.8 mmol/L (3.3-5.1); Sodium 140 mmol/L (135-145)
[2022-06-20 07:22] LABS: Glucose, Whole Blood 81 mg/dL (60-115)
[2022-06-20] MEDS: Multivitamin TABLET 1 TAB PO (08:54)
[2022-06-20] MEDS: carvediloL 6.25 MG TABLET PO ×2 (08:54→20:27)
[2022-06-20] MEDS: Colchicine 0.6 MG TABLET PO (08:54)
[2022-06-20] MEDS: SITagliptin Phosphate 50 MG TABLET PO (08:54)
[2022-06-20] MEDS: hydrALAZINE HCl 10 MG TABLET PO ×2 (08:54→20:27)
[2022-06-20] MEDS: Bumetanide 1 MG/4 ML VIAL IVPUSH ×2 (08:54→16:09)
--- NOTE | 2022-06-20 10:14 | PM.DS ---
DS: Providers Provider Date of Service: 06/20/22 Date of admission: 06/18/22 20:06 Primary care physician: Kishan Paez MD DS: Diagnosis Discharge Diagnosis (1) Acute respiratory failure with hypoxia: Status: Acute DS: Summary Hospital Course Hospital Course: from initial hpi: 82-year-old male with past medical history of ischemic CHF, biventricular ICD, CAD, chronic AFib, GERD, hyperlipidemia, hypertension, diabetes, as well as TIA presents to the hospital with complaints of shortness of breath, and chest congestion.? Patient reports that his symptoms started about a month ago without cold symptoms, chest congestion, he reports that he started taking Mucinex the noticed his stool becoming black entirely which has now resolved, he reports that he started having increased belching, but continued to have bowel movements.? Patient reports that today he felt blah , felt dizzy, has had increased dry cough, reports orthopnea, PND, had multiple episodes of vomiting, and increased dyspnea especially on exertion.? He also complaining of decreased oral intake. Id on arrival to the ED patient noted to be hypoxic with 88% on room air, otherwise stable Labs are significant for WBC count of 10.3, hemoglobin of 10.5 dropped from 11.9 in December, hematocrit of 32.5 BUN of 36, creatinine of 1.98, BNP of 1035 Viral serology negative Chest x-ray shows mild peribronchial cuffing with increased interstitial opacities suggests interstitial edema hospital course: Patient was admitted for acute hypoxic respiratory failure secondary to acute on chronic systolic CHF. He was treated with IV Bumex. He was weaned off oxygen and tolerate room air. Overall feeling much better. For his diabetes he was continued on insulin. For chronic atrial fibrillation is continue on carvedilol and Xarelto. For CKD 4 he remained stable. For coronary disease he was continued on Xarelto on statin. Overall patient is feeling much better and will be discharged home on his home dose of 1 mg daily of Bumex with additional dose based on weight. Time Spent with Patient Time attestation: Total time managing care of this patient today ____ minutes. Discharge coordination time: Greater than 30 minutes Quality: Safe Use of Opioids Does Pt have an Active Cancer Diagnosis on the Problem List?: No Quality: Stroke Does the patient have a stroke diagnosis?: No Physical Exam Vital Signs: Vital Signs: Last Vital Signs Temp 96.7 F L 06/20/22 08:00 Pulse 71 06/20/22 08:00 Resp 20 06/20/22 08:00 BP 124/57 L 06/20/22 08:00 Pulse Ox 92 06/20/22 09:20 O2 Del Method 06/20/22 09:20 O2 Flow Rate 2 06/20/22 08:00 BMI result Body Mass Index 30.5 General: AO X 3, no acute distress Resp: Cta bilateral, no accessory muscles used CVS: S1,S2,RRR GI: soft, non tender, non distended Neuro: motor grossly intact, alert Psych: appropriate affect, appropriate insight DS: Data Data Completed and Pending Labs on day of discharge: Laboratory Results - last 24 hr 06/19/22 06/19/22 06/19/22 11:51 15:43 19:18 WBC RBC Hgb Hct MCV MCH MCHC RDW Plt Count MPV Absolute Nucleated RBC Nucleated RBC % (auto) Sodium Potassium Chloride Carbon Dioxide Anion Gap BUN Creatinine Estim Creat Clear Calc Estimated GFR POC Glucose 333 H 294 H 337 H Fasting Glucose Calcium Magnesium 06/20/22 06/20/22 06/20/22 05:36 05:36 07:13 WBC 11.7 H RBC 3.22 L Hgb 10.2 L Hct 30.0 L MCV 93.2 MCH 31.7 MCHC 34.0 RDW 15.9 Plt Count 226 MPV 10.8 Absolute Nucleated RBC 0.000 Nucleated RBC % (auto) 0.0 Sodium 140 Potassium 3.8 Chloride 102 Carbon Dioxide 31 H Anion Gap 11 L BUN 50 H Creatinine 2.24 H Estim Creat Clear Calc 27.0 Estimated GFR 28 POC Glucose 81 Fasting Glucose 72 Calcium 8.6 Magnesium 2.0 Preliminary micro results at discharge 06/18/22 17:08 Blood Culture - Preliminary Blood - Venous No growth after 24 hours. 06/18/22 16:58 Blood Culture - Preliminary Blood - Venous No growth after 24 hours. Discharge Plan Discharge Anticipated Discharge Date/Time: 06/20/22 10:06 Patient Disposition: Home, Self-Care Discharge Diagnosis: chf Referrals: Kishan Paez MD [Primary Care Provider] - 1 Week Discharge Medications: Continued nitroglycerin [Nitrostat] 0.4 mg tablet, sublingual 0.4 mg sublingual Q5M PRN (Reason: chest pain) Qty: 25 1RF Rx Instructions: do not exceed 3 doses per episode carvedilol 6.25 mg tablet 6.25 mg PO BID Qty: 180 3RF Januvia 50 mg tablet 50 mg PO DAILY Qty: 90 3RF glimepiride 4 mg tablet 4 mg PO QAM Qty: 90 3RF ropinirole 0.25 mg tablet 0.25 mg PO BEDTIME Qty: 90 3RF colchicine [Colcrys] 0.6 mg tablet 0.6 mg PO DAILY 90 Days Qty: 90 3RF nitroglycerin [Nitro-Dur] 0.4 mg/hr patch 24 hour 1 patch transdermal DAILY 90 Days Qty: 90 3RF Rx Instructions: allow nitrate-free interval of approx. 10-12 hrs per 24-hour period hydralazine 10 mg tablet 10 mg PO BID 90 Days Qty: 180 3RF gabapentin 100 mg capsule 100 mg PO BEDTIME 90 Days Qty: 90 3RF atorvastatin 80 mg tablet 80 mg PO QPM allopurinol 100 mg tablet 100 mg PO QPM meclizine 25 mg tablet 25 mg PO TID PRN (Reason: Dizziness) bumetanide 1 mg tablet 1 mg PO DAILY Rx Instructions: extra as needed for edema Xarelto 15 mg tablet 15 mg PO QPM multivitamin Tablet 1 tab PO DAILY tamsulosin [Flomax] 0.4 mg capsule 0.4 mg PO BEDTIME 90 Days Qty: 90 3RF Discharge Orders: Discharge Order (Routine); Ordered 06/20/22 Ordered By: Giovanni Martinez Diet: Low salt diet Activity on Discharge: As tolerated Stand Alone Forms: Patient Portal Discharge page Care Plan Goals: recovery Health Concerns: chf Plan of Treatment: bumex Assessment: see above
--- NOTE | 2022-06-20 10:16 | MHC.CM.PN ---
Addendum entered by Heide Melendez 06/20/22 11:09: DP: DC CANCELLED DUE TO LOW 02 LEVELS, SON GILDARDO NOTIFIED, RN NOTIFIED. CM WILL CONTINUE TO FOLLOW. Original Note: DP: PT HAS BEEN MEDICALLY CLEARED FOR DC HOME, NO SERVICES. RN AWARE. SON TO TRANSPORT HOME.
--- NOTE | 2022-06-20 10:21 | P.PNIM_ITS ---
Subjective Subjective Date of Service: 06/20/22 Interval History: cc: sob interval history:overall improved Cardiovascular Cardiovascular: Reports no additional cardiovascular complaints Respiratory Respiratory: Reports no additional respiratory complaints Physical Exam Vital Signs: Vital Signs: Last Vital Signs Temp 96.7 F L 06/20/22 08:00 Pulse 71 06/20/22 08:00 Resp 20 06/20/22 08:00 BP 124/57 L 06/20/22 08:00 Pulse Ox 92 06/20/22 09:20 O2 Del Method 06/20/22 09:20 O2 Flow Rate 2 06/20/22 08:00 BMI result Body Mass Index 30.5 General: AO X 3, no acute distress Resp: CTA bilateral, no accessory muscles used CVS: S1,S2,RRR GI: soft, non tender, non distended Neuro: motor grossly intact, alert Psych: appropriate affect, appropriate insight Objective Data Active Medications Acetaminophen (Acetaminophen 325 Mg Tablet) 650 mg PO Q6H PRN PRN Reason: Pain, Mild (Pain Scale 1-3) Allopurinol (Allopurinol 100 Mg Tablet) 100 mg PO BEDTIME [facility] Last Admin: 06/19/22 22:38 Dose: 100 mg Documented By: EDYTA Atorvastatin Calcium (Atorvastatin Calcium 80 Mg Tablet) 80 mg PO BEDTIME [facility] Last Admin: 06/19/22 22:38 Dose: 80 mg Documented By: EDYTA Bumetanide (Bumetanide 1 Mg/4 Ml Vial) 1 mg IVPUSH BID@0900,1700 [facility]; Protocol Last Admin: 06/20/22 08:54 Dose: 1 mg Documented By: ROSSY Carvedilol (Carvedilol 6.25 Mg Tablet) 6.25 mg PO BID [facility]; Protocol Last Admin: 06/20/22 08:54 Dose: 6.25 mg Documented By: ROSSY Colchicine (Colchicine 0.6 Mg Tablet) 0.6 mg PO DAILY [facility] Last Admin: 06/20/22 08:54 Dose: 0.6 mg Documented By: ROSSY Dextrose (Dextrose 50 % 25 Gm/50 Ml Syringe) 25 gm IVPUSH Q15M PRN; Protocol PRN Reason: per Hypoglycemia Standing Ord. Docusate Sodium (Docusate Sodium 100 Mg Capsule) 100 mg PO DAILY PRN PRN Reason: Constipation Gabapentin (Gabapentin 100 Mg Capsule) 100 mg PO BEDTIME [facility] Last Admin: 06/19/22 22:38 Dose: 100 mg Documented By: EDYTA Glucose (Glucose Gel 15 Gm Gel..Gram.) 15 gm PO Q15M PRN; Protocol PRN Reason: per Hypoglycemia Standing Ord. Hydralazine HCl (Hydralazine Hcl 10 Mg Tablet) 10 mg PO BID [facility]; Protocol Last Admin: 06/20/22 08:54 Dose: 10 mg Documented By: ROSSY Insulin Human Lispro (Insulin Lispro 100 Unit/Ml 3 Ml Vial) 0 unit SUBCUT QIDACHS [facility]; Protocol Last Admin: 06/20/22 07:27 Dose: Not Given Documented By: ROSSY Non-Admin Reason: No Insulin Coverage Comments: [id number] Multivitamins/Vitamin C (Multivitamin Tablet) 1 tab PO DAILY [facility] Last Admin: 06/20/22 08:54 Dose: 1 tab Documented By: ROSSY Ondansetron HCl (Ondansetron Hcl 4 Mg/2 Ml Vial) 4 mg IVPUSH Q8H PRN PRN Reason: Nausea and Vomiting Rivaroxaban (Rivaroxaban 15 Mg Tablet) 15 mg PO BEDTIME [facility] Last Admin: 06/19/22 22:39 Dose: 15 mg Documented By: EDYTA Ropinirole HCl (Ropinirole Hcl 0.25 Mg Tablet) 0.25 mg PO BEDTIME [facility] Last Admin: 06/19/22 22:39 Dose: 0.25 mg Documented By: EDYTA Sitagliptin Phosphate (Sitagliptin Phosphate 50 Mg Tablet) 50 mg PO DAILY [facility] Last Admin: 06/20/22 08:54 Dose: 50 mg Documented By: ROSSY Sodium Chloride (0.9 % Sodium Chloride Flush 3 Ml Syringe) 3 ml IVFLUSH [facility] Last Admin: 06/20/22 08:54 Dose: 3 ml Documented By: ROSSY Tamsulosin HCl (Tamsulosin Hcl 0.4 Mg Capsule) 0.4 mg PO BEDTIME [facility] Last Admin: 06/19/22 22:38 Dose: 0.4 mg Documented By: EDYTA Labs CBC & Chem 7: 06/20/22 05:36 06/20/22 05:36 Labs: Laboratory Results - last 24 hr 06/19/22 06/19/22 06/19/22 11:51 15:43 19:18 MCV MCH MCHC RDW Plt Count MPV Absolute Nucleated RBC Nucleated RBC % (auto) Anion Gap Estim Creat Clear Calc Estimated GFR POC Glucose 333 H 294 H 337 H Fasting Glucose Calcium Magnesium 06/20/22 06/20/22 06/20/22 05:36 05:36 07:13 MCV 93.2 MCH 31.7 MCHC 34.0 RDW 15.9 Plt Count 226 MPV 10.8 Absolute Nucleated RBC 0.000 Nucleated RBC % (auto) 0.0 Anion Gap 11 L Estim Creat Clear Calc 27.0 Estimated GFR 28 POC Glucose 81 Fasting Glucose 72 Calcium 8.6 Magnesium 2.0 Microbiology Microbiology Results: Microbiology 06/18/22 17:08 Blood Culture - Preliminary Blood - Venous No growth after 24 hours. 06/18/22 16:58 Blood Culture - Preliminary Blood - Venous No growth after 24 hours. Assessment and Plan (1) Acute respiratory failure with hypoxia: Status: Acute Plan 82-year-old male with past medical history of CAD, chronic afib, gout, CKD IV, BPH, DM, HTN,chronic systolic CHF with an ejection fraction of 30-35% on Bumex daily presented to the hospital complaints of orthopnea PND, shortness of breath found to have CHF exacerbation acute hypoxic respiratory failure due to acute on chronic systolic chf conitnue iv bumex wean o2 - unsuccessful today monitor bmp DM insulin, pocs chronic afib coreg, xarelto CKD IV stable, monitor CAD xarelto, statin DVT prophylaxis : Xarelto full code reason for continued hospitalization: iv diuresis, still hypoxic Time Spent With Patient Time: Total time managing care of this patient today ____ minutes. Quality Stroke Does the patient have a stroke diagnosis?: No VTE Prior VTE?: No VTE Risk Level:: Medical - moderate - high VTE Device Contraindication: Treatment Not Indicated VTE Drug Contraindication: N/A - Med Ordered
--- NOTE | 2022-06-20 10:24 | P.CDIC_ITS ---
CDI Concurrent Query Documentation Clarification: PHYSICIAN'S DOCUMENTATION REQUEST Date of Query: 06/20/22 1025 Patient Name: Ethan Macias Admit Date: 06/18/22 Dear Doctor, A review of the medical record indicates additional documentation may be needed. Please review below and update the documentation accordingly. Clinical Indicators: Risk Factors/Clinical Indicators/Treatments POC Glucose [phone] Insulin ED 06/18: PMH - Type 2 Diabetes mellitus with hyperglycemia Please clarify the following regarding Diabetes Mellitus (DM): * Hyperglycemia * Other complication ? please specify * Unable to determine Use of terms such as suspected, likely, concern for, or probable (associated with a specific diagnosis that is being evaluated, monitored, or treated as if it exists) are acceptable and can be coded in the inpatient setting, when documented at the time of discharge. Thank you, Annmarie Sahni [facility], CDIS Extension: [phone] Please use your independent medical judgment in providing your response. THIS QUERY IS PART OF THE PERMANENT MEDICAL RECORD Provider Response: Other (DM with hyperglycemia) Other Diagnosis: DM with hyperglycemia
[2022-06-20 11:10] LABS: Glucose, Whole Blood 190 mg/dL (60-115)
[2022-06-20] MEDS: Insulin Lispro 100 UNIT/ML 3 ML VIAL SUBCUT ×2 (11:31→16:10)
[2022-06-20 15:59] LABS: Glucose, Whole Blood 269 mg/dL (60-115)
[2022-06-20 19:31] LABS: Glucose, Whole Blood 145 mg/dL (60-115)
[2022-06-20] MEDS: rOPINIRole HCL 0.25 MG TABLET PO (20:27)
[2022-06-20] MEDS: Atorvastatin Calcium 80 MG TABLET PO (20:27)
[2022-06-20] MEDS: Gabapentin 100 MG CAPSULE PO (20:27)
[2022-06-20] MEDS: Tamsulosin HCL 0.4 MG CAPSULE PO (20:27)
[2022-06-20] MEDS: allopurinoL 100 MG TABLET PO (20:27)
[2022-06-20] MEDS: Rivaroxaban 15 MG TABLET PO (20:27)
[2022-06-20] MEDS: Docusate Sodium 100 MG CAPSULE PO (20:42)
[2022-06-21 03:31] VITALS: BP 112/85; PULSE 70; RESP 16; TEMP 36.4; O2SAT 95
[2022-06-21 06:51] LABS: Hematocrit 32.4 % (42.0-52.0); Hemoglobin 10.2 g/dl (14.0-18.0); Mean Corpuscular HGB Conc 31.5 g/dl (31.0-36.0); Mean Corpuscular Hemoglobin 29.5 pg (27.0-33.0); Mean Corpuscular Volume 93.6 fL (80.0-98.0); Mean Platelet Volume 10.6 fL (9.4-12.4); Platelet Count 210 X10*3/uL (160-400); Red Blood Count 3.46 X10*6/uL (4.60-5.80); Red Cell Distribution Width 15.9 % (11.0-16.0); White Blood Count 8.9 X10*3/uL (4.8-10.8)
[2022-06-21 07:43] VITALS: BP 124/59; PULSE 68; RESP 16; TEMP 36.4; O2SAT 96
[2022-06-21 07:44] LABS: Glucose, Whole Blood 113 mg/dL (60-115)
[2022-06-21 08:07] LABS: Anion Gap 13 (12-20); Blood Urea Nitrogen 55 mg/dL (9-16); Calcium 8.6 mg/dL (8.4-10.2); Carbon Dioxide 31 mmol/L (22-29); Chloride 100 mmol/L (96-108); Creatinine Clr Calc Pharmacy 28.9; Estimated Glomerular Filt Rate 31; Glucose Fasting 106 mg/dL (60-99); Magnesium 1.9 mg/dL (1.6-2.6); Potassium 3.9 mmol/L (3.3-5.1); Sodium 140 mmol/L (135-145)
[2022-06-21] MEDS: carvediloL 6.25 MG TABLET PO (09:09)
[2022-06-21] MEDS: hydrALAZINE HCl 10 MG TABLET PO (09:09)
[2022-06-21] MEDS: Bumetanide 1 MG/4 ML VIAL IVPUSH (09:09)
[2022-06-21] MEDS: Colchicine 0.6 MG TABLET PO (09:09)
[2022-06-21] MEDS: SITagliptin Phosphate 50 MG TABLET PO (09:09)
[2022-06-21] MEDS: Multivitamin TABLET 1 TAB PO (09:09)
[2022-06-21 11:11] VITALS: BP 125/56; PULSE 101; RESP 16; TEMP 36; O2SAT 96
[2022-06-21 11:20] LABS: Glucose, Whole Blood 226 mg/dL (60-115)
[2022-06-21] MEDS: Insulin Lispro 100 UNIT/ML 3 ML VIAL SUBCUT (11:40)
--- NOTE | 2022-06-21 13:05 | PM.DS ---
DS: Providers Provider Date of Service: 06/21/22 Date of admission: 06/18/22 20:06 Primary care physician: Kishan Paez MD DS: Diagnosis Discharge Diagnosis (1) Acute respiratory failure with hypoxia: Status: Acute DS: Summary Hospital Course Hospital Course: from initial hpi: 82-year-old male with past medical history of ischemic CHF, biventricular ICD, CAD, chronic AFib, GERD, hyperlipidemia, hypertension, diabetes, as well as TIA presents to the hospital with complaints of shortness of breath, and chest congestion.? Patient reports that his symptoms started about a month ago without cold symptoms, chest congestion, he reports that he started taking Mucinex the noticed his stool becoming black entirely which has now resolved, he reports that he started having increased belching, but continued to have bowel movements.? Patient reports that today he felt blah , felt dizzy, has had increased dry cough, reports orthopnea, PND, had multiple episodes of vomiting, and increased dyspnea especially on exertion.? He also complaining of decreased oral intake. Id on arrival to the ED patient noted to be hypoxic with 88% on room air, otherwise stable Labs are significant for WBC count of 10.3, hemoglobin of 10.5 dropped from 11.9 in December, hematocrit of 32.5 BUN of 36, creatinine of 1.98, BNP of 1035 Viral serology negative Chest x-ray shows mild peribronchial cuffing with increased interstitial opacities suggests interstitial edema hospital course: Patient was admitted for acute hypoxic respiratory failure secondary to acute on chronic systolic CHF. He was treated with IV Bumex. He was weaned off oxygen and tolerate room air. Overall feeling much better. For his diabetes he was continued on insulin. For chronic atrial fibrillation is continue on carvedilol and Xarelto. For CKD 4 he remained stable. For coronary disease he was continued on Xarelto on statin. Overall patient is feeling much better and will be discharged home on his home dose of 1 mg daily of Bumex with additional dose based on weight. Time Spent with Patient Time attestation: Total time managing care of this patient today ____ minutes. Discharge coordination time: Greater than 30 minutes Quality: Safe Use of Opioids Does Pt have an Active Cancer Diagnosis on the Problem List?: No Quality: Stroke Does the patient have a stroke diagnosis?: No Physical Exam Vital Signs: Vital Signs: Last Vital Signs Temp 96.8 F 06/21/22 11:11 Pulse 101 H 06/21/22 11:11 Resp 16 06/21/22 11:11 BP 125/56 L 06/21/22 11:11 Pulse Ox 96 06/21/22 11:11 O2 Del Method 06/21/22 11:11 O2 Flow Rate 2 06/21/22 03:31 BMI result Body Mass Index 30.5 Const: Other: General: AO X 3, no acute distress Resp: CTA bilateral CVS: S1,S2,RRR GI: +BS, NT, no distention Skin: No rash Neuro: motor grossly intact Psych: appropriate affect DS: Data Data Completed and Pending Labs on day of discharge: Laboratory Results - last 24 hr 06/20/22 06/20/22 06/21/22 15:21 19:14 06:27 WBC 8.9 RBC 3.46 L Hgb 10.2 L Hct 32.4 L MCV 93.6 MCH 29.5 MCHC 31.5 RDW 15.9 Plt Count 210 MPV 10.6 Absolute Nucleated RBC 0.000 Nucleated RBC % (auto) 0.0 Sodium Potassium Chloride Carbon Dioxide Anion Gap BUN Creatinine Estim Creat Clear Calc Estimated GFR POC Glucose 269 H 145 H Fasting Glucose Calcium Magnesium 06/21/22 06/21/22 06/21/22 06:27 07:40 11:10 WBC RBC Hgb Hct MCV MCH MCHC RDW Plt Count MPV Absolute Nucleated RBC Nucleated RBC % (auto) Sodium 140 Potassium 3.9 Chloride 100 Carbon Dioxide 31 H Anion Gap 13 BUN 55 H Creatinine 2.09 H Estim Creat Clear Calc 28.9 Estimated GFR 31 POC Glucose 113 226 H Fasting Glucose 106 H Calcium 8.6 Magnesium 1.9 Preliminary micro results at discharge 06/18/22 17:08 Blood Culture - Preliminary Blood - Venous No growth after 48 hours. 06/18/22 16:58 Blood Culture - Preliminary Blood - Venous No growth after 48 hours. Discharge Plan Discharge Anticipated Discharge Date/Time: 06/20/22 10:06 Patient Disposition: Home, Self-Care Discharge Diagnosis: chf Referrals: Kishan Paez MD [Primary Care Provider] - 1 Week Discharge Medications: Continued nitroglycerin [Nitrostat] 0.4 mg tablet, sublingual 0.4 mg sublingual Q5M PRN (Reason: chest pain) Qty: 25 1RF Rx Instructions: do not exceed 3 doses per episode carvedilol 6.25 mg tablet 6.25 mg PO BID Qty: 180 3RF Januvia 50 mg tablet 50 mg PO DAILY Qty: 90 3RF glimepiride 4 mg tablet 4 mg PO QAM Qty: 90 3RF ropinirole 0.25 mg tablet 0.25 mg PO BEDTIME Qty: 90 3RF colchicine [Colcrys] 0.6 mg tablet 0.6 mg PO DAILY 90 Days Qty: 90 3RF nitroglycerin [Nitro-Dur] 0.4 mg/hr patch 24 hour 1 patch transdermal DAILY 90 Days Qty: 90 3RF Rx Instructions: allow nitrate-free interval of approx. 10-12 hrs per 24-hour period hydralazine 10 mg tablet 10 mg PO BID 90 Days Qty: 180 3RF gabapentin 100 mg capsule 100 mg PO BEDTIME 90 Days Qty: 90 3RF atorvastatin 80 mg tablet 80 mg PO QPM allopurinol 100 mg tablet 100 mg PO QPM meclizine 25 mg tablet 25 mg PO TID PRN (Reason: Dizziness) bumetanide 1 mg tablet 1 mg PO DAILY Rx Instructions: extra as needed for edema Xarelto 15 mg tablet 15 mg PO QPM multivitamin Tablet 1 tab PO DAILY tamsulosin [Flomax] 0.4 mg capsule 0.4 mg PO BEDTIME 90 Days Qty: 90 3RF Discharge Orders: Discharge Order (Routine); Ordered 06/21/22 Ordered By: Mitch Hicks Diet: Low salt diet Activity on Discharge: As tolerated Stand Alone Forms: Patient Portal Discharge page Care Plan Goals: full recovery from chf Health Concerns: chf Plan of Treatment: take bumex as directed, avoid drinking too much water no more than 1500 cc of water a day, weight yourself daily if your weight go over 2 Ib, call your doctor Assessment: see above
--- NOTE | 2022-06-21 13:10 | P.F2F_ITS ---
Service Date Service Date: 06/21/22 Encounter Date of encounter: 06/21/22 Reasons for Services Signs and symptoms assessed: heart failure with shortness of breath Reason for prison: CV/CP assess and/or care, medication management and teach disease management Homebound: Leaving the home is medically contraindicated at this time without the asist of a device and/or another person due th the listed conditions above and below. Reason homebound: shortness of breath with minimal effort and weakness related to hospital stay Homebound supporting statement: Homebound due to heart failure causing shortness of breath and need assistance from another Certification: Based on the above findings, I certify that this patient is confined to the home and needs intermittent prison care, physical therapy and/or speech therapy, or continues to need occupational therapy. The patient is under my care, and I have initiated the establishment of the plan of care. The patient will be followed by a physician who will periodically review the plan of care. Time Spent With Patient Time: Total time managing care of this patient today ____ minutes.
--- NOTE | 2022-06-21 13:16 | MHC.CM.PN ---
Addendum entered by Heide Melendez 06/21/22 13:33: REQUESTS [facility] FOR SN, CHF TEACHING AND ASSESSMENTS. REFERRAL SENT TO [facility]. Original Note: DP: PT HAS BEEN MEDICALLY CLEARED FOR DC HOME, NO SERVICES. RN AWARE. SON GILDARDO AWARE AND WILL TRANSPORTING HOME.
== END 2022-06-21 14:28 | disposition home health service (06) | DRG 291 ==
LOC: HO.ED 17:36 → HO.EDOVER 20:12 → HO.IMC 06-19 12:05
PROVIDERS: Internal Medicine; Admitting Provider Internal Medicine; Emergency Provider Internal Medicine; PCP Internal Medicine; Visit Provider Internal Medicine
DX: I13.0 Hypertensive heart and chronic kidney disease with heart failure and stage 1 through stage 4 chronic kidney disease, or unspecified chronic kidney disease (principal); I50.23 Acute on chronic systolic (congestive) heart failure; J96.01 Acute respiratory failure with hypoxia; N18.4 Chronic kidney disease, stage 4 (severe); I48.20 Chronic atrial fibrillation, unspecified; E11.22 Type 2 diabetes mellitus with diabetic chronic kidney disease; I42.9 Cardiomyopathy, unspecified; N40.0 Benign prostatic hyperplasia without lower urinary tract symptoms; I25.10 Atherosclerotic heart disease of native coronary artery without angina pectoris; E11.65 Type 2 diabetes mellitus with hyperglycemia; Z20.822 Contact with and (suspected) exposure to COVID-19; Z95.810 Presence of automatic (implantable) cardiac defibrillator; Z86.73 Personal history of transient ischemic attack (TIA), and cerebral infarction without residual deficits; Z88.8 Allergy status to other drugs, medicaments and biological substances; Z79.01 Long term (current) use of anticoagulants; Z79.84 Long term (current) use of oral hypoglycemic drugs; Z79.899 Other long term (current) drug therapy
CPT/HCPCS: 0241U; 36415; 71045; 80048; 80053; 82272; 82947; 83605; 83735; 83880; 84484; 85025; 85027; 87040; 93005; 93306; 94640; 99285; J1940; J2930; Q9957

== ENCOUNTER 2022-06-27 02:22 | Inpatient (IN) | payer OTHER, MEDICARE, SELFPAY ==
[2022-06-27] VITALS (7 sets, daily range): BP systolic 93–131; BP diastolic 47–97; PULSE 70–94; RESP 12–26; TEMP 36.4–37.1; O2SAT 90–97; BMI 29.5
--- NOTE | ~2022-06-27 | XR_ITS ---
EXAMINATION: XR CHEST CLINICAL INFORMATION: Shortness of breath COMPARISON: 06/18/2022 TECHNIQUE: Frontal view of the chest was obtained. FINDINGS: Cardiomegaly and pulmonary venous congestion. Bronchial thickening and interstitial opacities redemonstrated throughout both lungs. No large pleural effusion. No pneumothorax. Stably positioned biventricular AICD. XR/XR chest 1V IMPRESSION: * Cardiomegaly and pulmonary venous congestion, with bilateral interstitial and airspace opacities potentially representing pulmonary edema and/or bronchitis/atypical infection
--- NOTE | 2022-06-27 02:44 | ECG_ITS ---
Test Reason : DIFF BREATHING Blood Pressure : / mmHG Vent. Rate : 070 BPM Atrial Rate : 038 BPM P-R Int : 000 ms QRS Dur : 178 ms QT Int : 480 ms P-R-T Axes : -04 134 181 degrees QTc Int : 518 ms Artifact in tracing Ventricular-paced rhythm Abnormal ECG When compared with ECG of 18-JUN-2022 16:41, No significant change was found Referred By: Generic ED Physician Electronically Signed By:AZUCENA PETERSON
--- NOTE | 2022-06-27 02:55 | ED.GENADULT ---
HPI - General Adult General Chief complaint: General Medical Stated complaint: difficulty breathing Time Seen by Provider: 06/27/22 02:46 Source: patient and family Mode of arrival: ambulatory Limitations: no limitations History of Present Illness HPI narrative: 82-year-old male came in for evaluation of shortness of breath and becoming hypoxic at home, patient with history of ischemic CHF, biventricular ICD, CAD, chronic AFib, GERD, hyperlipidemia, hypertension, diabetes, patient had a recent admission for congestive heart failure and hypoxia at 88% patient was discharged home 2 days ago returned today after he was trying to sleep and laid down started to have severe shortness of breath and his O2 sat at home ran from 77% to 90% according to the patient patient currently do not use supplemental oxygen at home does not use CPAP or BiPAP during sleeping. Patient only sleep in the recliner cannot sleep supine. Related Data Home Medications Medication Instructions Recorded Confirmed multivitamin 1 tab PO DAILY 04/12/20 06/18/22 allopurinol 100 mg tablet 100 mg PO QPM 06/18/22 06/18/22 atorvastatin 80 mg tablet 80 mg PO QPM 06/18/22 06/18/22 bumetanide 1 mg tablet 1 mg PO DAILY 06/18/22 06/18/22 meclizine 25 mg tablet 25 mg PO TID PRN Dizziness 06/18/22 06/18/22 rivaroxaban 15 mg tablet (Xarelto) 15 mg PO QPM 06/18/22 06/18/22 Previous Rx's Medication Instructions Recorded nitroglycerin 0.4 mg sublingual 0.4 mg sublingual Q5M PRN chest 09/16/20 tablet (Nitrostat) pain #25 tabs carvedilol 6.25 mg tablet 6.25 mg PO BID #180 tabs 07/25/21 sitagliptin phosphate 50 mg tablet 50 mg PO DAILY #90 tabs 09/22/21 (Januvia) glimepiride 4 mg tablet 4 mg PO QAM #90 tabs 10/21/21 ropinirole 0.25 mg tablet 0.25 mg PO BEDTIME #90 tabs 10/21/21 colchicine 0.6 mg tablet (Colcrys) 0.6 mg PO DAILY 90 days #90 tabs 12/21/21 nitroglycerin 0.4 mg/hr 1 patch transdermal DAILY 90 days 12/22/21 transdermal 24 hour patch #90 ea (Nitro-Dur) hydralazine 10 mg tablet 10 mg PO BID 90 days #180 tabs 02/21/22 tamsulosin 0.4 mg capsule (Flomax) 0.4 mg PO BEDTIME 90 days #90 caps 03/28/22 gabapentin 100 mg capsule 100 mg PO BEDTIME 90 days #90 caps 05/24/22 Allergies Allergy/AdvReac Type Severity Reaction Status Date / Time dabigatran etexilate Allergy Unknown indigestion Verified 06/18/22 16:44 [Pradaxa] sacubitril [From ENTRESTO] Allergy Unknown FEELS LIKE Verified 06/18/22 16:44 HAVING A HEART ATTACK valsartan [From ENTRESTO] Allergy Unknown FEELS LIKE Verified 06/18/22 16:44 HAVING A HEART ATTACK Review of Systems Review of Systems: All other systems are reviewed and are negative Constitutional: Reports as per HPI and Reports no additional constitutional complaints Eyes: Reports as per HPI and Reports no additional eye complaints Reports system reviewed and no additional complaints, except as documented Cardiovascular: Reports as per HPI and Reports no additional cardiovascular complaints Respiratory: Reports as per HPI and Reports no additional respiratory complaints Gastrointestinal: Reports as per HPI and Reports no additional gastrointestinal complaints Genitourinary: Reports no additional female genitourinary complaints Musculoskeletal: Reports no additional musculoskeletal complaints Skin/Breast: Reports system reviewed and no additional complaints, except as docu Psychiatric: Reports no additional psychiatric complaints Endocrine: Reports no additional endocrine complaints Hematologic/Lymphatic: Reports no additional hematologic/lymphatic complaints Allergic/Immunologic: Reports no additional allergic/immunologic complaints Reports system reviewed and no additional complaints, except as documented and Reports Abnormal speech present [facility] Past Medical History Medical History Acute on chronic systolic (congestive) heart failure Aortic aneurysm Biventricular ICD (implantable cardioverter-defibrillator) in place CAD (coronary artery disease) Chronic atrial fibrillation GERD (gastroesophageal reflux disease) Gout Heart failure with reduced ejection fraction History of GI bleed Hypercholesterolemia Hypertension Ischemic cardiomyopathy Obesity (BMI 30-39.9) TIA (transient ischemic attack) Type 2 diabetes mellitus with hyperglycemia Surgical History Coronary artery disease involving coronary bypass graft History of cardiac defibrillator placement History of cholecystectomy Family History Family History Father CVD (cardiovascular disease) Hypertension Mother Cancer Social History Social History Household Members: Children Housing: Apartment Do you presently have visiting nurse or other home services: No Alcohol intake: never Patient Tobacco Use Status: Never used Tobacco Years Smoked: quit 1986 Smoked in Last 30 Days: No e-Cigarette/Vaping Use: Never Used Second Hand Smoke Exposure: No Use of substances other than those prescribed or required for medical reasons: No Advance Directives: Yes Advance Directives on File: Yes Advance Directives Date on File: 06/19/22 service: Yes Current occupational status: retired Physical Exam ED Vital Signs: Vital Signs - 24 hr 06/27/22 02:37 06/27/22 03:49 06/27/22 03:49 Temperature 98.7 F 97.7 F Pulse Rate 94 72 Respiratory Rate 24 H 26 H 22 H Blood Pressure 130/97 H 131/47 L Pulse Oximetry 90 L 95 Oxygen Delivery Method Nasal Cannula Nasal Cannula Oxygen Flow Rate 2 06/27/22 05:49 Temperature 97.6 F Pulse Rate 70 Respiratory Rate 15 Blood Pressure 127/47 L Pulse Oximetry 96 Oxygen Delivery Method Room Air Oxygen Flow Rate BMI result Body Mass Index 29.5 Vital signs have been reviewed as appeared to be correct. Blood pressure normal. Heart rate normal. Respiration rate normal. Temperature normal. Oxygen saturation normal. Appearance: Alert. Oriented X3. No acute distress. Head: Normal external exam. Normocephalic. Atraumatic. No Weaver signs noted. No raccoon eyes noted Eyes: PERRLA. EOMI. Conjunctiva and sclera normal. Eyelids normal. ENT: TM's Normal. Pharynx normal. Uvula midline. Moist mucous membranes. No trismus noted. No drooling noted. No muffled voice noted. Neck: Normal inspection. Neck supple. FROM. No adenopathy. Thyroid Normal. No meningeal signs. No neck mass noted. CVS: Normal heart rate and rhythm. Heart sound normal. No murmurs noted. Pulses normal throughout. Respiratory: No respiratory distress. Painless inspiration. Breath sounds normal. No wheezes/rales/rhonchi noted. Chest nontender. No accessory muscle usage noted or decreased air movement noted. Abdomen: Soft and nontender. Bowel sounds normal in all 4 quadrants. No distention noted. No organomegaly noted. No visible injury noted. Back: No CVA tenderness. Full range of motion noted. Skin: Skin warm and dry. Normal skin color. Normal skin turgor. No rashes/lesions/lacerations noted. Extremities: No lower extremity edema. Extremities exhibit normal range of motion. Extremities nontender. Neuro: Oriented X 3. Cranial nerve exam: II-XII are grossly intact No motor deficit. No sensory deficit. Reflexes normal. Course Course Course Narrative: 82-year-old male with acute on chronic respiratory failure due to congestive heart failure patient is not using supplemental oxygen at home came in after having hypoxia at home reportedly by the patient 70s% to 80s% in the emergency department exam and labs and chest x-ray consistent with congestive heart failure patient was given Lasix in the ED and was put on 2 L of nasal cannula with improvement of his hypoxia patient also was given Lasix in the emergency department will admit. Medications Administered Discontinued Medications Generic Name Dose Route Start Last Admin Trade Name Freq PRN Reason Stop Dose Admin Furosemide 40 mg 06/27/22 03:05 06/27/22 03:41 Furosemide 40 Mg/4 Ml Vial IVPUSH 06/27/22 03:06 40 mg ONCE ONE Administration Protocol Medical Decision Making Differential Diagnosis Differential Diagnoses: The differential diagnosis associated with the presentation includes (CHF, ACS, pneumonia, pneumothorax, respiratory failure, hypoxia.) Admission/Observation Consideration of admission/observation: Escalation of care including admission/observation considered Consult Healthcare Provider Management of the patient was discussed with: Hospitalist Lab Data MDM Lab Attestation statement: I reviewed the patient's lab results. Result Diagrams: 06/27/22 03:05 06/27/22 03:05 Labs: Lab Results 06/27/22 06/27/22 06/27/22 Range/Units 03:05 03:05 03:05 WBC 13.6 H (4.8-10.8) X10*3/uL RBC 3.55 L (4.60-5.80) X10*6/uL Hgb 10.4 L (14.0-18.0) g/dl Hct 33.5 L (42.0-52.0) % MCV 94.4 (80.0-98.0) fL MCH 29.3 (27.0-33.0) pg MCHC 31.0 (31.0-36.0) g/dl RDW 16.1 H (11.0-16.0) % Plt Count 206 (160-400) X10*3/uL MPV 10.9 (9.4-12.4) fL Absolute Nucleated RBC 0.000 (0.0-0.012) X10*3/uL Nucleated RBC % (auto) 0.0 (0.0-0.2) /100WBC Sodium 141 (135-145) mmol/L Potassium 4.0 (3.3-5.1) mmol/L Chloride 101 (96-108) mmol/L Carbon Dioxide 32 H (22-29) mmol/L Anion Gap 12 (12-20) BUN 38 H (9-16) mg/dL Creatinine 1.80 H (0.5-1.4) mg/dL Estim Creat Clear Calc 33.0 Estimated GFR 36 Random Glucose 242 H (60-115) mg/dL Calcium 9.7 D (8.4-10.2) mg/dL Total Bilirubin 3.1 H (0.0-1.0) mg/dL AST 24 (5-37) U/L ALT 22 (0-40) U/L Alkaline Phosphatase 114 (39-117) U/L Troponin I High Sens (<3.5-35.0) ng/L B-Natriuretic Peptide (<100) pg/mL Total Protein 6.6 (6.5-8.0) g/dL Albumin 3.3 L (3.5-5.0) g/dL Influenza Type A (PCR) NEGATIVE (Negative) Influenza Type B (PCR) NEGATIVE (Negative) RSV RNA Qual (PCR) NEGATIVE (Negative) SARS-CoV-2 RNA (RT-PCR) NEGATIVE (Negative) 06/27/22 06/27/22 Range/Units 03:05 03:05 WBC (4.8-10.8) X10*3/uL RBC (4.60-5.80) X10*6/uL Hgb (14.0-18.0) g/dl Hct (42.0-52.0) % MCV (80.0-98.0) fL MCH (27.0-33.0) pg MCHC (31.0-36.0) g/dl RDW (11.0-16.0) % Plt Count (160-400) X10*3/uL MPV (9.4-12.4) fL Absolute Nucleated RBC (0.0-0.012) X10*3/uL Nucleated RBC % (auto) (0.0-0.2) /100WBC Sodium (135-145) mmol/L Potassium (3.3-5.1) mmol/L Chloride (96-108) mmol/L Carbon Dioxide (22-29) mmol/L Anion Gap (12-20) BUN (9-16) mg/dL Creatinine (0.5-1.4) mg/dL Estim Creat Clear Calc Estimated GFR Random Glucose (60-115) mg/dL Calcium (8.4-10.2) mg/dL Total Bilirubin (0.0-1.0) mg/dL AST (5-37) U/L ALT (0-40) U/L Alkaline Phosphatase (39-117) U/L Troponin I High Sens 24.3 (<3.5-35.0) ng/L B-Natriuretic Peptide 1031 H (<100) pg/mL Total Protein (6.5-8.0) g/dL Albumin (3.5-5.0) g/dL Influenza Type A (PCR) (Negative) Influenza Type B (PCR) (Negative) RSV RNA Qual (PCR) (Negative) SARS-CoV-2 RNA (RT-PCR) (Negative) Independent Interpretation I performed an independent interpretation of an: EKG and Plain X-Ray (Pulmonary edema and cardiomegaly.) Interpretation: Ventricular paced EKG at 70 beats per minutes. Radiology Impression Discussion of test interpretation with radiology: I have reviewed the radiologist's reading. Critical Care Time Critical Care Time Critical Care Time: Yes Total Critical Care Time: 60 Attestation: I spent 60 minutes providing critical care service to the patient, this including time spent at the bedside to evaluate the patient, reassess the patient, monitoring vital signs, review labs, and radiographic studies, counseling the patient/family, discussing the case with consultants, disposition the patient. Discharge Plan Discharge Clinical Impression: Congestive heart failure, Acute and chronic respiratory failure with hypoxia Patient Disposition: Admitted As Inpatient
[2022-06-27 03:22] LABS: White Blood Count 13.6 X10*3/uL (4.8-10.8)
[2022-06-27 03:23] LABS: Hematocrit 33.5 % (42.0-52.0); Hemoglobin 10.4 g/dl (14.0-18.0); Mean Corpuscular Hemoglobin 29.3 pg (27.0-33.0); Mean Corpuscular Volume 94.4 fL (80.0-98.0); Mean Platelet Volume 10.9 fL (9.4-12.4); Platelet Count 206 X10*3/uL (160-400); Red Blood Count 3.55 X10*6/uL (4.60-5.80); Red Cell Distribution Width 16.1 % (11.0-16.0)
[2022-06-27] MEDS: Furosemide 40 MG/4 ML VIAL IVPUSH (03:41)
[2022-06-27 03:44] LABS: B Type Natriuretic Peptide 1031 pg/mL (<100); Troponin-I High Sensitivity 24.3 ng/L (<3.5-35.0)
--- NOTE | 2022-06-27 03:53 | PC.NURSE ---
Nurse Assessment: Pt's diastolic is lower than normal, pt has audible coarse crackles bilaterally lower lobes. Pt has shallow work of breathing utilizing his abd muscle. Pt has pitting edema bilaterally +4 on is foot. Pt has hx of CHF. Pt is afribile, has IV 22g on his right forearm. Pt' son is at bedside. Pt was medicated as order by the provider. Please refferal to the worklist for further information.
[2022-06-27 03:58] LABS: Alanine Aminotransferase 22 U/L (0-40); Albumin Level 3.3 g/dL (3.5-5.0); Alkaline Phosphatase 114 U/L (39-117); Anion Gap 12 (12-20); Aspartate Amino Transferase 24 U/L (5-37); Bilirubin Total 3.1 mg/dL (0.0-1.0); Blood Urea Nitrogen 38 mg/dL (9-16); Calcium 9.7 mg/dL (8.4-10.2); Carbon Dioxide 32 mmol/L (22-29); Chloride 101 mmol/L (96-108); Estimated Glomerular Filt Rate 36; Glucose Random 242 mg/dL (60-115); Sodium 141 mmol/L (135-145); Total Protein 6.6 g/dL (6.5-8.0)
[2022-06-27 04:04] LABS: Influenza A PCR NEGATIVE (Negative); Influenza B PCR NEGATIVE (Negative); Resp Syncy Virus RNA Qual PCR NEGATIVE (Negative); SARS COV2 PCR INHOUSE NEGATIVE (Negative)
--- NOTE | 2022-06-27 05:49 | MHC.EDTECH ---
pt is resting quietly, he uses the urinal to void, vitals taken no issues
--- NOTE | 2022-06-27 07:41 | PC.NURSE ---
Patient resting comfortably presents to ED with report of SOB on O2 which is not baseline fine crackles in bases of lungs bilaterally. AOx 4 neuros intact denies chest pain is tolerating o2 with no ill effect will CTM
--- NOTE | 2022-06-27 08:23 | PHA.MEDREC ---
Pharmacy Consult ? Medication Reconciliation Pharmacy has completed the medication reconciliation. Patient confirmed all current meds,
[2022-06-27 09:01] LABS: Procalcitonin 0.16 ng/mL
--- NOTE | 2022-06-27 09:36 | P.HPHOSP_ITS ---
History of Present Illness Date of Service: 06/27/22 Chief Complaint: shortness of breath and hypoxia The patient is an 82 yo M with a PMH as outlined below who presents to the ED after about 5 days since his discharge with complaints of shortness of breath and PND which have worsened over the last several days. The patient states that he has been unable to sleep in the supine position has he has significant PND and cough. He states that he has been compliant with his 1mg of bumex at home and checks his weight daily. He denies any dietary indiscretion. He reoprts that using his home pulse ox machine, he noticed that his oxygen saturations were getting at low as the 70s and hence he presented to the ED. He denies any chest pain, fevers, chills or GI/ symptoms. In the ED, the patient was initially hypoxic in the 80s and was placed on 2L. He was given IV lasix 40mg x 1 with about 1L of urine output. His symptoms have improved, but he still cannot lay in the supine position and has intermittent hyopxia. Hence, he will be admitted for further care. Review of Systems Review of Systems: negative except HPI [facility] Medical History Acute on chronic systolic (congestive) heart failure Aortic aneurysm Biventricular ICD (implantable cardioverter-defibrillator) in place CAD (coronary artery disease) Chronic atrial fibrillation GERD (gastroesophageal reflux disease) Gout Heart failure with reduced ejection fraction History of GI bleed Hypercholesterolemia Hypertension Ischemic cardiomyopathy Obesity (BMI 30-39.9) TIA (transient ischemic attack) Type 2 diabetes mellitus with hyperglycemia Family History Father CVD (cardiovascular disease) Hypertension Mother Cancer Surgical History Coronary artery disease involving coronary bypass graft History of cardiac defibrillator placement History of cholecystectomy Social History Household Members: Children Housing: Apartment Do you presently have visiting nurse or other home services: No Alcohol intake: never Patient Tobacco Use Status: Never used Tobacco Years Smoked: quit 1986 Smoked in Last 30 Days: No e-Cigarette/Vaping Use: Never Used Second Hand Smoke Exposure: No Use of substances other than those prescribed or required for medical reasons: No Advance Directives: Yes Advance Directives on File: Yes Advance Directives Date on File: 06/19/22 service: Yes Current occupational status: retired Meds Allergies Allergy/AdvReac Type Severity Reaction Status Date / Time dabigatran etexilate Allergy Unknown indigestion Verified 06/18/22 16:44 [Pradaxa] sacubitril [From ENTRESTO] Allergy Unknown FEELS LIKE Verified 06/18/22 16:44 HAVING A HEART ATTACK valsartan [From ENTRESTO] Allergy Unknown FEELS LIKE Verified 06/18/22 16:44 HAVING A HEART ATTACK Active Medications: Current Medications Acetaminophen (Acetaminophen 325 Mg Tablet) 650 mg PO Q6H PRN PRN Reason: Pain, Mild (Pain Scale 1-3) Allopurinol (Allopurinol 100 Mg Tablet) 100 mg PO BEDTIME [facility] Atorvastatin Calcium (Atorvastatin Calcium 80 Mg Tablet) 80 mg PO DAILY@1800 [facility] Carvedilol (Carvedilol 6.25 Mg Tablet) 6.25 mg PO BID [facility]; Protocol Colchicine (Colchicine 0.6 Mg Tablet) 0.6 mg PO DAILY [facility] Gabapentin (Gabapentin 100 Mg Capsule) 100 mg PO DAILY@1200 [facility] Multivitamins/Vitamin C (Multivitamin Tablet) 1 tab PO DAILY [facility] Ondansetron HCl (Ondansetron Hcl 4 Mg/2 Ml Vial) 4 mg IVPUSH Q8H PRN PRN Reason: Nausea and Vomiting Pharmacy Consult (Consult Rx Perform Med Rec) 1 each MISCELLANE ONCE PRN PRN Reason: Consult order Sodium Chloride (0.9 % Sodium Chloride Flush 3 Ml Syringe) 3 ml IVFLUSH QSHIFT [facility] Home Medications Medication Instructions Recorded Confirmed Last Taken Type multivitamin 1 tab PO DAILY 04/12/20 06/27/22 06/26/22 History allopurinol 100 mg tablet 100 mg PO BEDTIME 06/18/22 06/27/22 06/25/22 History atorvastatin 80 mg tablet 80 mg PO DAILY@1800 06/18/22 06/27/22 06/26/22 History bumetanide 1 mg tablet 1 mg PO DAILY 06/18/22 06/27/22 06/26/22 History rivaroxaban 15 mg tablet (Xarelto) 15 mg PO DAILY@1800 12/06/27/22 06/26/22 History gabapentin 100 mg capsule 100 mg PO DAILY@119906/27/22 06/27/22 06/26/22 History tamsulosin 0.4 mg capsule (Flomax) 0.4 mg PO DAILY@119906/27/22 06/27/22 06/26/22 History Physical Exam Vital Signs and Narrative: Vital Signs: Last Vital Signs Temp 97.6 F 06/27/22 05:49 Pulse 94 06/27/22 07:29 Resp 12 06/27/22 07:29 BP 123/54 L 06/27/22 07:29 Pulse Ox 94 06/27/22 07:29 O2 Del Method 06/27/22 07:29 O2 Flow Rate 2 06/27/22 03:49 Oxygen Flow Rate 2 06/27/22 02:37 BMI result Body Mass Index 29.5 Const: Other: Constitutional - Awake and Alert, No apparent distress when sitting upright; unable to lay supine; +JVD Eyes - PERRLA, EOMI Cardiovascular - S1S2, RRR, 1+ b/l pedal edema Respiratory - mostly clear with scattered rales Gastrointestinal - NT / ND; +BS; No rebound or guarding - No CVA tenderness Extremities - no calf tenderness bilaterally Musculoskeletal - Normal inspection, normal ROM Skin - Warm/Dry Neurological - Alert & oriented x3, No focal deficit Psychological - Appropriate affect Results Labs CBC and Chem 7: 06/27/22 03:05 06/27/22 03:05 Labs: Laboratory Results - last 24 hr 06/27/22 06/27/22 06/27/22 03:05 03:05 03:05 MCV 94.4 MCH 29.3 MCHC 31.0 RDW 16.1 H Plt Count 206 MPV 10.9 Absolute Nucleated RBC 0.000 Nucleated RBC % (auto) 0.0 Anion Gap 12 Estim Creat Clear Calc 33.0 Estimated GFR 36 Random Glucose 242 H Calcium 9.7 D Total Bilirubin 3.1 H AST 24 ALT 22 Alkaline Phosphatase 114 Troponin I High Sens B-Natriuretic Peptide Total Protein 6.6 Albumin 3.3 L Procalcitonin Influenza Type A (PCR) NEGATIVE Influenza Type B (PCR) NEGATIVE RSV RNA Qual (PCR) NEGATIVE SARS-CoV-2 RNA (RT-PCR) NEGATIVE 06/27/22 06/27/22 06/27/22 03:05 03:05 03:05 MCV MCH MCHC RDW Plt Count MPV Absolute Nucleated RBC Nucleated RBC % (auto) Anion Gap Estim Creat Clear Calc Estimated GFR Random Glucose Calcium Total Bilirubin AST ALT Alkaline Phosphatase Troponin I High Sens 24.3 B-Natriuretic Peptide 1031 H Total Protein Albumin Procalcitonin 0.16 Influenza Type A (PCR) Influenza Type B (PCR) RSV RNA Qual (PCR) SARS-CoV-2 RNA (RT-PCR) Imaging Radiologist's Impressions: Impressions Chest X-Ray 06/27/22 02:35 IMPRESSION: * Cardiomegaly and pulmonary venous congestion, with bilateral interstitial and airspace opacities potentially representing pulmonary edema and/or bronchitis/atypical infection Assessment and Plan (1) Congestive heart failure: Status: Acute Plan This is an 82 yo M with a PMH of HFrEF, DM, A. Fib on oac who presents to the ED about 5 days after his last discharge with respiratory symptoms. His presentation and ED work up are consistent with acute HFrEF exacerbation. He wi ll be admitted for furthercare. 1. Acute on chronic HFrEF elevated bnp, cxr with evidence of fluid overload + clinically with JVD+inability to lay supine + hypoxia on a baseline of bumex 1mg daily -- will start 1mg IV BID i/o; daily weights; low Na diet consult cardiology last echo completed 06/19 -- LVEF 20-25% + pulm htn + mod/severe TR, mod TR, diastolic dysfuction 2. Hypoa intermittent; per pt history mostly at night once improved from CHF, consider overnight oximetry 3. DM hold orals use sliding scale 4. CKD stage 4 monitor Scr 5. elevated t. bili possibly from hepatic congestion, monitor Full Code DVT pptx, Xarelto Due to the patients CHF requiring IV diuretics + work up for his hypoxia, I anticipate a medically necessary inpatient hospitalization which is likely to span at least 2 midnights. Time Spent With Patient Time: Total time managing care of this patient today 60 minutes. Quality Stroke Does the patient have a stroke diagnosis?: No VTE Prior VTE?: No VTE Risk Level:: Medical - moderate - high VTE Device Contraindication: Treatment Not Indicated VTE Drug Contraindication: N/A - Med Ordered
[2022-06-27 11:32] LABS: Glucose, Whole Blood 142 mg/dL (60-115)
[2022-06-27] MEDS: Gabapentin 100 MG CAPSULE PO (11:54)
[2022-06-27] MEDS: Tamsulosin HCL 0.4 MG CAPSULE PO (11:54)
[2022-06-27] MEDS: 0.9 % Sodium Chloride Flush 3 ML SYRINGE IVFLUSH (16:26)
--- NOTE | 2022-06-27 16:48 | PC.NURSE ---
Marnie arciniega held POC BS out of range.
[2022-06-27] MEDS: Bumetanide 1 MG/4 ML VIAL IVPUSH (16:58)
[2022-06-27] MEDS: Atorvastatin Calcium 80 MG TABLET PO (17:00)
[2022-06-27] MEDS: Rivaroxaban 15 MG TABLET PO (17:00)
[2022-06-27 17:55] LABS: Glucose, Whole Blood 210 mg/dL (60-115)
--- NOTE | 2022-06-27 18:12 | PC.NURSE ---
Patient AOx 4 resting in bed tolerating O2 by nasal cannula no distress noted will CTM
[2022-06-27] MEDS: Insulin Lispro 100 UNIT/ML 3 ML VIAL SUBCUT (18:27)
--- NOTE | 2022-06-27 19:10 | PC.NURSE ---
report received from JARRELL Vaca
[2022-06-27 21:07] LABS: Glucose, Whole Blood 104 mg/dL (60-115)
[2022-06-27] MEDS: carvediloL 6.25 MG TABLET PO (22:42)
[2022-06-27] MEDS: allopurinoL 100 MG TABLET PO (22:42)
--- NOTE | 2022-06-27 23:15 | PC.NURSE ---
Patient has ventricular paced rhythm on tele monitor. P 70-82. Patient denies any chest pain. Patient reports breathing is better. He is on O2 at 3 LPM saturating 96-98%. Dr. Pierce notified, no new roders at this time.
[2022-06-28] VITALS: BP 106/48; PULSE 70; RESP 16; TEMP 36.8; O2SAT 96
--- NOTE | 2022-06-28 01:05 | PC.NURSE ---
BP 84/50. BP cuff reapplied with BP 107/54 noted. Patient denies chest pain. HR 74, continues with paced ventricular rhythm on tele monitor.
[2022-06-28 06:00] VITALS: BP 105/49; PULSE 72; RESP 16; TEMP 36.6; O2SAT 97
--- NOTE | 2022-06-28 06:25 | MHC.EDTECH ---
pt slept most of the night ,up at 6am for lab draw .
[2022-06-28 07:22] LABS: Glucose, Whole Blood 107 mg/dL (60-115)
[2022-06-28 07:24] LABS: Anion Gap 10 (12-20); Blood Urea Nitrogen 36 mg/dL (9-16); Calcium 8.8 mg/dL (8.4-10.2); Carbon Dioxide 35 mmol/L (22-29); Chloride 100 mmol/L (96-108); Creatinine Clr Calc Pharmacy 33.4; Estimated Glomerular Filt Rate 37; Glucose Random 103 mg/dL (60-115); Potassium 4.3 mmol/L (3.3-5.1); Sodium 141 mmol/L (135-145)
[2022-06-28 08:01] VITALS: BP 108/63; PULSE 73; RESP 16; O2SAT 95
[2022-06-28] MEDS: Multivitamin TABLET 1 TAB PO (09:35)
[2022-06-28] MEDS: carvediloL 6.25 MG TABLET PO ×2 (09:35→23:07)
[2022-06-28] MEDS: Bumetanide 1 MG/4 ML VIAL 2 MG IVPUSH ×2 (09:35→18:28)
[2022-06-28] MEDS: Nitroglycerin 0.1 MG PATCH.TD24 0.4 MG TRANSDERMA (09:35)
[2022-06-28] MEDS: Colchicine 0.6 MG TABLET PO (09:36)
[2022-06-28] MEDS: 0.9 % Sodium Chloride Flush 3 ML SYRINGE IVFLUSH ×3 (09:45→23:09)
--- NOTE | 2022-06-28 10:41 | PC.NURSE ---
Pt requested personal hygiene products and linen. Pt was set up by the sink in his room with a chair. Pt performed task independently.
--- NOTE | 2022-06-28 10:51 | P.CONCA_ITS ---
History of Present Illness History of Present Illness Date of Service: 06/28/22 Chief complaint: SOB Narrative: This is a cardiology consultation regarding congestive heart failure. Patient has a history of coronary disease with bypass surgery. He also has ischemic cardiomyopathy with LVEF in the 20s. Additionally, chronic atrial fibrillation, biventricular ICD placement. He sees Dr. Montanez in the office. End of last month, he was actually admitted to the hospital for respiratory failure thought to be from acute systolic heart failure. Then given IV Bumex and it seems that he improved and then he was discharged. There were no discharge medication changes with regard diuretics. He was recommended take the usual home dose of 1 mg of Bumex but additional doses as guided by his weight. He also has chronic kidney dysfunction. Any case, he did not feel good after discharge. He states that when he is walking level ground he was okay but whenever he started doing inclines he was getting very short of breath. Also whenever he was lying down flat, he fell orthopnea can could breathe. Hence he got readmitted. Once again, he has been diuresed intravenously. Started feeling better. No other cardiac symptoms at this time. Review of Systems Review of Systems: Yes all other systems are reviewed and are negative Constitutional: Constitutional: Reports as per HPI Eyes: Eyes: Reports as per HPI ENT: Reports as per HPI Cardiovascular: Cardiovascular: Reports as per HPI, Denies acrocyanosis, Denies cool extremities, Denies chest pain, Denies leg edema, Denies lightheadedness, Denies palpitations and Denies dyspnea Respiratory: Respiratory: Reports as per HPI, Reports no additional respiratory complaints and Denies dyspnea Gastrointestinal: Gastrointestinal: Reports as per HPI and Reports no additional gastrointestinal complaints Genitourinary: Genitourinary: Reports no additional male genitourinary complaints and Reports as per HPI Musculoskeletal: Musculoskeletal: Reports no additional musculoskeletal complaints and Reports as per HPI Integumentary/Breasts: Skin/Breast: Reports system reviewed and no additional complaints, except as docu Neurologic: Reports system reviewed and no additional complaints, except as documented and Reports as per HPI Psychiatric: Psychiatric: Reports no additional psychiatric complaints and Reports as per HPI Endocrine: Endocrine: Reports no additional endocrine complaints, Reports as per HPI and Denies palpitations Hematologic/Lymphatic: Hematologic/Lymphatic: Reports no additional hem atologic/lymphatic complaints and Reports as per HPI Allergic/Immunologic: Allergic/Immunologic: Reports no additional allergic/immunologic complaints and Reports as per HPI [facility] Past Medical History Medical History (Updated 06/28/22 @ 10:55 by Hakan Herring MD) Acute on chronic systolic (congestive) heart failure Aortic aneurysm Biventricular ICD (implantable cardioverter-defibrillator) in place CAD (coronary artery disease) Chronic atrial fibrillation GERD (gastroesophageal reflux disease) Gout Heart failure with reduced ejection fraction History of GI bleed Hypercholesterolemia Hypertension Ischemic cardiomyopathy Obesity (BMI 30-39.9) TIA (transient ischemic attack) Type 2 diabetes mellitus with hyperglycemia Family History Family History Father CVD (cardiovascular disease) Hypertension Mother Cancer Surgical History Surgical History Coronary artery disease involving coronary bypass graft History of cardiac defibrillator placement History of cholecystectomy Social History Social History Household Members: Children Housing: Apartment Do you presently have visiting nurse or other home services: No Alcohol intake: never Patient Tobacco Use Status: Never used Tobacco Years Smoked: quit 1986 Smoked in Last 30 Days: No e-Cigarette/Vaping Use: Never Used Second Hand Smoke Exposure: No Use of substances other than those prescribed or required for medical reasons: No Advance Directives: Yes Advance Directives on File: Yes Advance Directives Date on File: 06/19/22 service: Yes Current occupational status: retired Meds Allergies Allergy/AdvReac Type Severity Reaction Status Date / Time dabigatran etexilate Allergy Unknown indigestion Verified 06/18/22 16:44 [Pradaxa] sacubitril [From ENTRESTO] Allergy Unknown FEELS LIKE Verified 06/18/22 16:44 HAVING A HEART ATTACK valsartan [From ENTRESTO] Allergy Unknown FEELS LIKE Verified 06/18/22 16:44 HAVING A HEART ATTACK Active Medications: Current Medications Acetaminophen (Acetaminophen 325 Mg Tablet) 650 mg PO Q6H PRN PRN Reason: Pain, Mild (Pain Scale 1-3) Allopurinol (Allopurinol 100 Mg Tablet) 100 mg PO BEDTIME [facility] Last Admin: 06/27/22 22:42 Dose: 100 mg Atorvastatin Calcium (Atorvastatin Calcium 80 Mg Tablet) 80 mg PO DAILY@1800 [facility] Last Admin: 06/27/22 17:00 Dose: 80 mg Bumetanide (Bumetanide 1 Mg/4 Ml Vial) 2 mg IVPUSH BID@0900,1700 [facility]; Protocol Last Admin: 06/28/22 09:35 Dose: 2 mg Carvedilol (Carvedilol 6.25 Mg Tablet) 6.25 mg PO BID [facility]; Protocol Last Admin: 06/28/22 09:35 Dose: 6.25 mg Colchicine (Colchicine 0.6 Mg Tablet) 0.6 mg PO DAILY [facility] Last Admin: 06/28/22 09:36 Dose: 0.6 mg Gabapentin (Gabapentin 100 Mg Capsule) 100 mg PO DAILY@1200 [facility] Last Admin: 06/27/22 11:54 Dose: 100 mg Insulin Human Lispro (Insulin Lispro 100 Unit/Ml 3 Ml Vial) 0 unit SUBCUT QIDACHS [facility]; Protocol Last Admin: 06/28/22 09:44 Dose: Not Given Multivitamins/Vitamin C (Multivitamin Tablet) 1 tab PO DAILY [facility] Last Admin: 06/28/22 09:35 Dose: 1 tab Nitroglycerin (Nitroglycerin 0.4 Mg Patch.Td24) 0.4 mg TRANSDERMA DAILY [facility]; Protocol Ondansetron HCl (Ondansetron Hcl 4 Mg/2 Ml Vial) 4 mg IVPUSH Q8H PRN PRN Reason: Nausea and Vomiting Pharmacy Consult (Consult Rx Perform Med Rec) 1 each MISCELLANE ONCE PRN PRN Reason: Consult order Rivaroxaban (Rivaroxaban 15 Mg Tablet) 15 mg PO DAILY@1800 [facility] Last Admin: 06/27/22 17:00 Dose: 15 mg Ropinirole HCl (Ropinirole Hcl 0.25 Mg Tablet) 0.25 mg PO BEDTIME [facility] Last Admin: 06/27/22 22:42 Dose: Not Given Sodium Chloride (0.9 % Sodium Chloride Flush 3 Ml Syringe) 3 ml IVFLUSH QSHIFT [facility] Last Admin: 06/28/22 09:45 Dose: 3 ml Tamsulosin HCl (Tamsulosin Hcl 0.4 Mg Capsule) 0.4 mg PO DAILY@1200 [facility] Last Admin: 06/27/22 11:54 Dose: 0.4 mg Home Medications Medication Instructions Recorded Confirmed Last Taken Type multivitamin 1 tab PO DAILY 04/12/20 06/27/2206/26/23 History allopurinol 100 mg tablet 100 mg PO BEDTIME 06/18/22 06/27/22 06/25/22 History atorvastatin 80 mg tablet 80 mg PO DAILY@1800 06/18/22 06/27/22 06/26/22 History bumetanide 1 mg tablet 1 mg PO DAILY 06/18/22 06/27/22 06/26/22 History rivaroxaban 15 mg tablet (Xarelto) 15 mg PO DAILY@1800 06/18/22 06/27/22 06/26/22 History gabapentin 100 mg capsule 100 mg PO DAILY@1200 06/27/22 06/27/22 06/26/22 History tamsulosin 0.4 mg capsule (Flomax) 0.4 mg PO DAILY@1200 06/27/22 06/27/22 06/26/22 History Physical Exam Vital Signs: Vital Signs: Last Vital Signs Temp 97.9 F 06/28/22 06:00 Pulse 73 06/28/22 08:01 Resp 16 06/28/22 08:01 BP 108/63 06/28/22 08:01 Pulse Ox 95 06/28/22 08:01 O2 Del Method 06/28/22 08:01 O2 Flow Rate 4 06/28/22 08:01 Oxygen Flow Rate 2 06/27/22 02:37 BMI result Body Mass Index 29.5 Const: General: comfortable and no acute distress [place] ation/consciousness: patient oriented x3 HEENT: Other: Unremarkable Head: Yes normal to inspection Neck: Neck: Yes normal visual inspection Chest: Chest palpation & inspection: normal inspection of the chest Resp: Auscultation: crackles Cardio: Palpation: normal PMI Heart sounds: S1 normal heart sound present, S2 normal heart sound present, no gallops, no murmurs and no rubs GI: Palpation (GI): Soft to palpation Back/Spine/Pelvis: Other: unremarkable Skin: General skin exam: no rashes or lesions noted Neuro: General: patient oriented x3 Extrem: General: Yes normal to inspection Psych: Mental Status: mental status grossly normal Objective Labs and Meds Result diagrams: 06/27/22 03:05 06/28/22 06:16 Lab results: Laboratory Results - last 24 hr 06/27/22 06/27/22 06/27/22 11:29 17:50 20:59 Sodium Potassium Chloride Carbon Dioxide Anion Gap BUN Creatinine Estim Creat Clear Calc Estimated GFR POC Glucose 142 H 210 H 104 Random Glucose Calcium 06/28/22 06/28/22 06:16 07:12 Sodium 141 Potassium 4.3 Chloride 100 Carbon Dioxide 35 H Anion Gap 10 L BUN 36 H Creatinine 1.78 H Estim Creat Clear Calc 33.4 Estimated GFR 37 POC Glucose 107 Random Glucose 103 Calcium 8.8 D ECG Interpretation: EKG shows baseline artifact but ventricular paced. Atrial rhythm is probably atrial fibrillation. Assessment and Plan (1) Acute on chronic systolic (congestive) heart failure: Status: Acute (2) Ischemic cardiomyopathy: Status: Acute (3) Biventricular ICD (implantable cardioverter-defibrillator) in place: Status: Acute (4) Chronic atrial fibrillation: Status: Acute Plan Labs reviewed. BUN is 36. Creatinine is 1.78. Seems to be around his baseline. High sensitivity troponins are within range. Cardiac BNP is just over 1000 as it was last week. In December was 247. Admission chest x-ray showed cardiomegaly/pulmonary venous congestion and bilateral interstitial/airspace opacities suggesting pulmonary edema or bronchitis/atypical infection. Last echocardiogram from last week showed LVEF of 20 25%; moderate to severe mitral regurgitation; moderate to severe pulmonary hypertension. In the most recent device check from last [id number] pacing listed to be less than 90% effective. OptiVol fluid accumulation starting 13 of June. Overall, acute on chronic systolic and diastolic heart failure. Continue with IV diuretics. He seems to improved a fair amount since he came in. Probably another day of diuretics watching kidney function. Upon discharge, may need higher than the usual baseline diuretic dose. Also will need to address ICD regarding effectiveness of [employer] pacing. Will follow up with you. Discussed with Dr. Galdamez. Time Spent With Patient Time: Total time managing care of this patient today 70 minutes. Procedures Date of Service Date of Service: 06/28/22
--- NOTE | 2022-06-28 11:09 | HO.PM.IMPN ---
Subjective Subjective Date of Service: 06/28/22 Interval History: endorses orthopnea + exertional dyspnea negative 660 mL thus far this admission Review of Systems Review of Systems: Yes all other systems are reviewed and are negative Physical Exam Vital Signs: Vital Signs: Last Vital Signs Temp 97.9 F 06/28/22 06:00 Pulse 73 06/28/22 08:01 Resp 16 06/28/22 08:01 BP 108/63 06/28/22 08:01 Pulse Ox 95 06/28/22 08:01 O2 Del Method 06/28/22 08:01 O2 Flow Rate 4 06/28/22 08:01 Oxygen Flow Rate 2 06/27/22 02:37 BMI result Body Mass Index 29.5 Gen: in no acute distress HEENT: sclera anicteric, moist mucus membranes Neck: supple Lungs: bibasilar inspiratory wet crackles Heart: regular rate and rhythm, no murmurs Abd: soft, non-tender, non-distended Ext: 1+ pitting leg edema bilaterally Skin: warm/well-perfused Neuro: alert and oriented x3, no focal findings Psych: appropriate affect Objective Data Active Medications Acetaminophen (Acetaminophen 325 Mg Tablet) 650 mg PO Q6H PRN PRN Reason: Pain, Mild (Pain Scale 1-3) Allopurinol (Allopurinol 100 Mg Tablet) 100 mg PO BEDTIME [facility] Last Admin: 06/27/22 22:42 Dose: 100 mg Documented By: CORTES Atorvastatin Calcium (Atorvastatin Calcium 80 Mg Tablet) 80 mg PO DAILY@1800 [facility] Last Admin: 06/27/22 17:00 Dose: 80 mg Documented By: LAKESHA Bumetanide (Bumetanide 1 Mg/4 Ml Vial) 2 mg IVPUSH BID@0900,1700 [facility]; Protocol Last Admin: 06/28/22 09:35 Dose: 2 mg Documented By: AUSTYN Carvedilol (Carvedilol 6.25 Mg Tablet) 6.25 mg PO BID [facility]; Protocol Last Admin: 06/28/22 09:35 Dose: 6.25 mg Documented By: AUSTYN Colchicine (Colchicine 0.6 Mg Tablet) 0.6 mg PO DAILY [facility] Last Admin: 06/28/22 09:36 Dose: 0.6 mg Documented By: AUSTYN Gabapentin (Gabapentin 100 Mg Capsule) 100 mg PO DAILY@1200 [facility] Last Admin: 06/27/22 11:54 Dose: 100 mg Documented By: LAKESHA Insulin Human Lispro (Insulin Lispro 100 Unit/Ml 3 Ml Vial) 0 unit SUBCUT QIDACHS [facility]; Protocol Last Admin: 06/28/22 09:44 Dose: Not Given Documented By: AUSTYN Non-Admin Reason: No Insulin Coverage Multivitamins/Vitamin C (Multivitamin Tablet) 1 tab PO DAILY [facility] Last Admin: 06/28/22 09:35 Dose: 1 tab Documented By: AUSTYN Nitroglycerin (Nitroglycerin 0.4 Mg Patch.Td24) 0.4 mg TRANSDERMA DAILY [facility]; Protocol Ondansetron HCl (Ondansetron Hcl 4 Mg/2 Ml Vial) 4 mg IVPUSH Q8H PRN PRN Reason: Nausea and Vomiting Pharmacy Consult (Consult Rx Perform Med Rec) 1 each MISCELLANE ONCE PRN PRN Reason: Consult order Rivaroxaban (Rivaroxaban 15 Mg Tablet) 15 mg PO DAILY@1800 [facility] Last Admin: 06/27/22 17:00 Dose: 15 mg Documented By: LAKESHA Ropinirole HCl (Ropinirole Hcl 0.25 Mg Tablet) 0.25 mg PO BEDTIME [facility] Last Admin: 06/27/22 22:42 Dose: Not Given Documented By: CORTES Non-Admin Reason: Med Not Available Sodium Chloride (0.9 % Sodium Chloride Flush 3 Ml Syringe) 3 ml IVFLUSH QSHIFT [facility] Last Admin: 06/28/22 09:45 Dose: 3 ml Documented By: AUSTYN Tamsulosin HCl (Tamsulosin Hcl 0.4 Mg Capsule) 0.4 mg PO DAILY@1200 [facility] Last Admin: 06/27/22 11:54 Dose: 0.4 mg Documented By: LAKESHA Labs CBC & Chem 7: 06/27/22 03:05 06/28/22 06:16 Labs: Laboratory Results - last 24 hr 06/27/22 06/27/22 06/27/22 11:29 17:50 20:59 Anion Gap Estim Creat Clear Calc Estimated GFR POC Glucose 142 H 210 H 104 Random Glucose Calcium 06/28/22 06/28/22 06:16 07:12 Anion Gap 10 L Estim Creat Clear Calc 33.4 Estimated GFR 37 POC Glucose 107 Random Glucose 103 Calcium 8.8 D Assessment and Plan (1) Acute on chronic systolic (congestive) heart failure: Status: Acute Plan d#2 82yo M with HFrEF [20% 06/19/22] BiV ICD, AF on rivaroxaban, DM2 presenting with dyspnea and admitted for recurrent CHF exacerbation # acute-chronic HFrEF - IV bumetanide 2 mg daily, Cardiology consult re: BiV pacing, follow I/O + monitor lytes/BNP - check Tbili in AM- 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 Quality Stroke Does the patient have a stroke diagnosis?: No VTE Prior VTE?: No VTE Risk Level:: Medical - moderate - high VTE Device Contraindication: Treatment Not Indicated VTE Drug Contraindication: N/A - Med Ordered
[2022-06-28 11:31] VITALS: BP 115/41; PULSE 81; RESP 16; O2SAT 96
[2022-06-28 12:23] LABS: Glucose, Whole Blood 232 mg/dL (60-115)
--- NOTE | 2022-06-28 12:39 | MHC.CM.PN ---
pt in ed pt lives with his 2 sons,has own ride mary anne,e is independent cm intervention is not indicated
[2022-06-28] MEDS: Gabapentin 100 MG CAPSULE PO (13:36)
[2022-06-28] MEDS: Insulin Lispro 100 UNIT/ML 3 ML VIAL SUBCUT ×2 (13:36→23:08)
[2022-06-28] MEDS: Tamsulosin HCL 0.4 MG CAPSULE PO (13:36)
--- NOTE | 2022-06-28 13:38 | PC.NURSE ---
pt a&ox3, vss, medicated per provider order, denies any pain/sob at this time. pt sitting at side of bed eating lunch.
--- NOTE | 2022-06-28 15:17 | PC.NURSE ---
med[employer] at bedside working on pacemaker w pt, per tech LV amplitude increased to 3.00V, information will be sent to cardiology.
[2022-06-28 16:19] VITALS: BP 105/54; PULSE 72; RESP 16; TEMP 36.5; O2SAT 98
[2022-06-28 17:57] LABS: Glucose, Whole Blood 132 mg/dL (60-115)
[2022-06-28] MEDS: Rivaroxaban 15 MG TABLET PO (18:24)
[2022-06-28] MEDS: Atorvastatin Calcium 80 MG TABLET PO (18:24)
--- NOTE | 2022-06-28 18:30 | PC.NURSE ---
pt a&ox3, vss, denies any pain, medicated per provider order.
--- NOTE | 2022-06-28 18:34 | PC.NURSE ---
T[employer]man[employer] sent to RN to call for report.
--- NOTE | 2022-06-28 19:30 | PC.NURSE ---
RN-RN report called into [facility].
[2022-06-28 21:14] LABS: Glucose, Whole Blood 172 mg/dL (60-115)
[2022-06-28 21:24] VITALS: BP 119/64; PULSE 86; RESP 16; TEMP 36.5; O2SAT 98
[2022-06-28] MEDS: rOPINIRole HCL 0.25 MG TABLET PO (23:07)
[2022-06-28] MEDS: allopurinoL 100 MG TABLET PO (23:08)
[2022-06-29] VITALS: BP 110/50; PULSE 70; RESP 16; TEMP 37.1; O2SAT 97
[2022-06-29 03:28] VITALS: BP 100/55; PULSE 96; RESP 18; TEMP 36.6; O2SAT 94
[2022-06-29 06:21] LABS: Hematocrit 29.1 % (42.0-52.0); Hemoglobin 9.2 g/dl (14.0-18.0); Mean Corpuscular HGB Conc 31.6 g/dl (31.0-36.0); Mean Corpuscular Hemoglobin 29.6 pg (27.0-33.0); Mean Corpuscular Volume 93.6 fL (80.0-98.0); Mean Platelet Volume 10.9 fL (9.4-12.4); Platelet Count 177 X10*3/uL (160-400); Red Blood Count 3.11 X10*6/uL (4.60-5.80); White Blood Count 8.1 X10*3/uL (4.8-10.8)
[2022-06-29 06:40] LABS: B Type Natriuretic Peptide 478 pg/mL (<100)
[2022-06-29 07:21] VITALS: BP 108/70; PULSE 71; RESP 12; TEMP 36.8; O2SAT 94
[2022-06-29 07:25] LABS: Anion Gap 14 (12-20); Bilirubin Total 2.8 mg/dL (0.0-1.0); Blood Urea Nitrogen 40 mg/dL (9-16); Calcium 8.3 mg/dL (8.4-10.2); Carbon Dioxide 32 mmol/L (22-29); Chloride 96 mmol/L (96-108); Creatinine Clr Calc Pharmacy 31.5; Estimated Glomerular Filt Rate 34; Glucose Random 140 mg/dL (60-115); Magnesium 2.1 mg/dL (1.6-2.6); Potassium 4.1 mmol/L (3.3-5.1); Sodium 138 mmol/L (135-145)
[2022-06-29 07:26] LABS: Glucose, Whole Blood 151 mg/dL (60-115)
[2022-06-29] MEDS: carvediloL 6.25 MG TABLET PO (07:36)
[2022-06-29] MEDS: Multivitamin TABLET 1 TAB PO (07:37)
[2022-06-29] MEDS: Insulin Lispro 100 UNIT/ML 3 ML VIAL SUBCUT ×2 (07:37→11:46)
[2022-06-29] MEDS: Colchicine 0.6 MG TABLET PO (07:37)
[2022-06-29] MEDS: Bumetanide 1 MG/4 ML VIAL 2 MG IVPUSH (07:38)
[2022-06-29] MEDS: 0.9 % Sodium Chloride Flush 3 ML SYRINGE IVFLUSH (07:44)
--- NOTE | 2022-06-29 10:38 | PM.PNCARD ---
Subjective Subjective Date of Service: 06/29/22 Interval history: Patient states that he is feeling better. Shortness of breath is much improved. Almost back to his usual baseline. Review of Systems Review of Systems Yes all other systems are reviewed and are negative Constitutional: Reports as per HPI Eyes: Reports as per HPI Reports as per HPI Cardiovascular: Reports as per HPI, Denies acrocyanosis, Denies cool extremities, Denies chest pain, Denies leg edema, Denies lightheadedness, Denies palpitations and Denies dyspnea Respiratory: Reports as per HPI, Reports no additional respiratory complaints and Denies dyspnea Gastrointestinal: Reports as per HPI and Reports no additional gastrointestinal complaints Genitourinary: Reports no additional male genitourinary complaints and Reports as per HPI Musculoskeletal: Reports no additional musculoskeletal complaints and Reports as per HPI Skin/Breast: Reports system reviewed and no additional complaints, except as docu Reports system reviewed and no additional complaints, except as documented and Reports as per HPI Psychiatric: Reports no additional psychiatric complaints and Reports as per HPI Endocrine: Reports no additional endocrine complaints, Reports as per HPI and Denies palpitations Hematologic/Lymphatic: Reports no additional hematologic/lymphatic complaints and Reports as per HPI Allergic/Immunologic: Reports no additional allergic/immunologic complaints and Reports as per HPI Physical Exam Vital Signs: Last Vital Signs Temp 98.2 F 06/29/22 07:21 Pulse 71 06/29/22 07:21 Resp 12 06/29/22 07:21 BP 108/70 06/29/22 07:21 Pulse Ox 94 06/29/22 07:21 O2 Del Method 06/29/22 07:21 O2 Flow Rate 2 06/29/22 03:28 Oxygen Flow Rate 2 06/27/22 02:37 BMI result Body Mass Index 29.5 Const General: comfortable and no acute distress Orientation/consciousness: patient oriented x3 HEENT Other: Unremarkable Head: Yes normal to inspection Neck Neck: Yes normal visual inspection Chest Chest palpation & inspection: normal inspection of the chest Resp Auscultation: clear to auscultation bilaterally Cardio Palpation: normal PMI Heart sounds: S1 normal heart sound present, S2 normal heart sound present, no gallops, no murmurs and no rubs GI Palpation (GI): Soft to palpation Back/Spine/Pelvis Other: unremarkable Skin General skin exam: no rashes or lesions noted Neuro General: patient oriented x3 Extrem General: Yes normal to inspection Psych Mental Status: mental status grossly normal Objective Labs and Meds Result diagrams: 06/29/22 05:47 06/29/22 05:47 Lab results: Laboratory Results - last 24 hr 06/28/22 06/28/22 06/28/22 12:19 17:34 21:10 WBC RBC Hgb Hct MCV MCH MCHC RDW Plt Count MPV Absolute Nucleated RBC Nucleated RBC % (auto) Sodium Potassium Chloride Carbon Dioxide Anion Gap BUN Creatinine Estim Creat Clear Calc Estimated GFR POC Glucose 232 H 132 H 172 H Random Glucose Calcium Magnesium Total Bilirubin B-Natriuretic Peptide 06/29/22 06/29/22 06/29/22 05:47 05:47 05:47 WBC 8.1 RBC 3.11 L Hgb 9.2 L Hct 29.1 L MCV 93.6 MCH 29.6 MCHC 31.6 RDW 16.0 Plt Count 177 MPV 10.9 Absolute Nucleated RBC 0.000 Nucleated RBC % (auto) 0.0 Sodium 138 Potassium 4.1 Chloride 96 Carbon Dioxide 32 H Anion Gap 14 BUN 40 H Creatinine 1.89 H Estim Creat Clear Calc 31.5 Estimated GFR 34 POC Glucose Random Glucose 140 H D Calcium 8.3 L Magnesium 2.1 Total Bilirubin 2.8 H B-Natriuretic Peptide 478 H 06/29/22 07:21 WBC RBC Hgb Hct MCV MCH MCHC RDW Plt Count MPV Absolute Nucleated RBC Nucleated RBC % (auto) Sodium Potassium Chloride Carbon Dioxide Anion Gap BUN Creatinine Estim Creat Clear Calc Estimated GFR POC Glucose 151 H Random Glucose Calcium Magnesium Total Bilirubin B-Natriuretic Peptide Progress Note: A&P Assessment and plan (1) Acute on chronic systolic (congestive) heart failure: Status: Acute (2) Ischemic cardiomyopathy: Status: Acute (3) Biventricular ICD (implantable cardioverter-defibrillator) in place: Status: Acute (4) Chronic atrial fibrillation: Status: Acute Plan Cardiac data- High sensitivity troponins are within range. Initial Cardiac BNP is just over 1000 as it was last week. In December was 247. Today, improved to 478. Admission chest x-ray showed cardiomegaly/pulmonary venous congestion and bilateral interstitial/airspace opacities suggesting pulmonary edema or bronchitis/atypical infection. Last echocardiogram from last week showed LVEF of 20 25%; moderate to severe mitral regurgitation; moderate to severe pulmonary hypertension. D/w Che Hilliard NP- With regard to his Bi V ICD, there is an issue with diaphragmatic pacing. When the thresholds are cut back, it seems the LV pacing also goes down. This probably led to the to recent hospitalizations. Pacing thresholds again optimized. He does feel some diaphragmatic pacing but not too much. Hospitalization could have been because of the above issue with ICD. Hence can keep him on the usual diuretic regimen. He already has baseline kidney dysfunction. Discharge planning. Follow-up in clinic. Discussed with Dr. Levin. Time Spent With Patient Time: Total time managing care of this patient today 35 minutes. Progress Note: Quality Stroke Does the patient have a stroke diagnosis?: No Procedures Date of Service Date of Service: 06/29/22
[2022-06-29 10:58] VITALS: BP 109/56; PULSE 76; RESP 12; TEMP 36.5; O2SAT 98
--- NOTE | 2022-06-29 11:09 | PM.DS ---
DS: Providers Provider Date of Service: 06/29/22 Date of admission: 06/27/22 09:32 Primary care physician: Kishan Paez MD Consults: 06/27/22 09:33 Consult to Cardiology Routine Consulting Provider: Hakan Herring Reason for consultation: chf, second admit in 2 weeks DS: Diagnosis Discharge Diagnosis (1) Acute on chronic systolic (congestive) heart failure: Status: Acute (2) Ischemic cardiomyopathy: Status: Acute (3) Biventricular ICD (implantable cardioverter-defibrillator) in place: Status: Acute (4) Chronic atrial fibrillation: Status: Acute DS: Summary Hospital Course Hospital Course: Date of Service: 06/27/22 Chief Complaint: shortness of breath and hypoxia The patient is an 82 yo M with a PMH as outlined below who presents to the ED after about 5 days since his discharge with complaints of shortness of breath and PND which have worsened over the last several days. The patient states that he has been unable to sleep in the supine position has he has significant PND and cough. He states that he has been compliant with his 1mg of bumex at home and checks his weight daily. He denies any dietary indiscretion. He reoprts that using his home pulse ox machine, he noticed that his oxygen saturations were getting at low as the 70s and hence he presented to the ED. He denies any chest pain, fevers, chills or GI/ symptoms. In the ED, the patient was initially hypoxic in the 80s and was placed on 2L. He was given IV lasix 40mg x 1 with about 1L of urine output. His symptoms have improved, but he still cannot lay in the supine position and has intermittent hyopxia. Hence, he will be admitted for further care. 82yo M with HFrEF [20% 06/19/22] BiV ICD, AF on rivaroxaban, DM2 presented with dyspnea and admitted for acute on chronic recurrent CHF exacerbation, patient treated with IV Bumex 2 mg twice daily, patient responded well to above treatment feeling significantly better shortness of breath has resolved, case discussed with Cardiology since patient seems to be doing better hemodynamically stable will discharge patient on his home dose of Bumex 1 mg daily he has been strongly advised to limit fluid intake to 1.5 L on to minimize use of soft, acute hypoxic respiratory failure has resolved recommend outpatient sleep study In regard to chronic AF recommend to continue rivaroxaban + carvedilol CKD4 - SCr at baseline For DM2 and gout recommend to continue home medications Time Spent with Patient Time attestation: Total time managing care of this patient today ____ minutes. Discharge coordination time: Greater than 30 minutes Quality: Safe Use of Opioids Does Pt have an Active Cancer Diagnosis on the Problem List?: No Quality: Stroke Does the patient have a stroke diagnosis?: No Physical Exam Vital Signs: Vital Signs: Last Vital Signs Temp 97.7 F 06/29/22 10:58 Pulse 76 06/29/22 10:58 Resp 12 06/29/22 10:58 BP 109/56 L 06/29/22 10:58 Pulse Ox 98 06/29/22 10:58 O2 Del Method 06/29/22 10:58 O2 Flow Rate 2 06/29/22 03:28 Oxygen Flow Rate 2 06/27/22 02:37 BMI result Body Mass Index 29.5 Const: Other: General awake alert x3, resting comfortably in no acute distress. Neck is supple no JVD. CVS regular rate rhythm, Respiratory lungs clear to auscultation, no respiratory distress, no wheeze, no rhonchi. Gastrointestinal abdomen soft, nontender, bowel sounds audible, Extremities no edema. Neuro nonfocal Skin no rash Psych appropriate affect DS: Data Data Completed and Pending Labs on day of discharge: Laboratory Results - last 24 hr 06/28/22 06/28/22 06/28/22 12:19 17:34 21:10 WBC RBC Hgb Hct MCV MCH MCHC RDW Plt Count MPV Absolute Nucleated RBC Nucleated RBC % (auto) Sodium Potassium Chloride Carbon Dioxide Anion Gap BUN Creatinine Estim Creat Clear Calc Estimated GFR POC Glucose 232 H 132 H 172 H Random Glucose Calcium Magnesium Total Bilirubin B-Natriuretic Peptide 06/29/22 06/29/22 06/29/22 05:47 05:47 05:47 WBC 8.1 RBC 3.11 L Hgb 9.2 L Hct 29.1 L MCV 93.6 MCH 29.6 MCHC 31.6 RDW 16.0 Plt Count 177 MPV 10.9 Absolute Nucleated RBC 0.000 Nucleated RBC % (auto) 0.0 Sodium 138 Potassium 4.1 Chloride 96 Carbon Dioxide 32 H Anion Gap 14 BUN 40 H Creatinine 1.89 H Estim Creat Clear Calc 31.5 Estimated GFR 34 POC Glucose Random Glucose 140 H D Calcium 8.3 L Magnesium 2.1 Total Bilirubin 2.8 H B-Natriuretic Peptide 478 H 06/29/22 07:21 WBC RBC Hgb Hct MCV MCH MCHC RDW Plt Count MPV Absolute Nucleated RBC Nucleated RBC % (auto) Sodium Potassium Chloride Carbon Dioxide Anion Gap BUN Creatinine Estim Creat Clear Calc Estimated GFR POC Glucose 151 H Random Glucose Calcium Magnesium Total Bilirubin B-Natriuretic Peptide Discharge Plan Discharge Anticipated Discharge Date/Time: 06/29/22 11:03 Patient Disposition: Home, Self-Care Discharge Diagnosis: Acute on chronic heart failure with reduced EF Acute hypoxic respiratory failure Chronic atrial fibrillation Referrals: Po,Kishan Flores MD [Primary Care Provider] - 1 Week (call pcp office to schedule follow up visit ) Discharge Medications: Continued carvedilol 6.25 mg tablet 6.25 mg PO BID Qty: 180 3RF Januvia 50 mg tablet 50 mg PO DAILY Qty: 90 3RF glimepiride 4 mg tablet 4 mg PO QAM Qty: 90 3RF ropinirole 0.25 mg tablet 0.25 mg PO BEDTIME Qty: 90 3RF colchicine [Colcrys] 0.6 mg tablet 0.6 mg PO DAILY 90 Days Qty: 90 3RF nitroglycerin [Nitro-Dur] 0.4 mg/hr patch 24 hour 1 patch transdermal DAILY 90 Days Qty: 90 3RF Rx Instructions: allow nitrate-free interval of approx. 10-12 hrs per 24-hour period atorvastatin 80 mg tablet 80 mg PO DAILY@1800 allopurinol 100 mg tablet 100 mg PO BEDTIME bumetanide 1 mg tablet 1 mg PO DAILY Rx Instructions: extra as needed for edema Xarelto 15 mg tablet 15 mg PO DAILY@1800 tamsulosin [Flomax] 0.4 mg capsule 0.4 mg PO DAILY@1200 gabapentin 100 mg capsule 100 mg PO DAILY@1200 multivitamin Tablet 1 tab PO DAILY Discontinued hydralazine 10 mg tablet 10 mg PO BID 90 Days Qty: 180 3RF Discharge Orders: Discharge Order (Routine); Ordered 06/29/22 Ordered By: Simin Levin Diet: Low salt diet Activity on Discharge: As tolerated Stand Alone Forms: Patient Portal Discharge page Care Plan Goals: Recurrent bout of congestive heart failure strongly recommend to follow less than 2 g salt diet, restrict total fluid intake to not more than 6 glasses a day, weigh yourself regularly and take extra dose of Bumex as per cardiology recommendation Health Concerns: Continue all home medications Plan of Treatment: Outpatient follow-up with Cardiology Assessment: As above
--- NOTE | 2022-06-29 11:28 | MHC.CM.PN ---
Male 82 is discharged to home today without home services.. He will receive assistance from family. Family will provide transportation home.
[2022-06-29 11:32] LABS: Glucose, Whole Blood 223 mg/dL (60-115)
[2022-06-29] MEDS: Nitroglycerin 0.4 MG PATCH.TD24 TRANSDERMA (11:46)
[2022-06-29] MEDS: Gabapentin 100 MG CAPSULE PO (12:06)
[2022-06-29] MEDS: Tamsulosin HCL 0.4 MG CAPSULE PO (12:06)
== END 2022-06-29 14:03 | disposition home or self-care (01) | DRG 291 ==
LOC: HO.ED 04:46 → HO.EDOVER 09:39 → HO.IMC 06-28 17:46
PROVIDERS: Family Medicine; Internal Medicine; Admitting Provider Family Medicine; Emergency Provider Emergency Medicine; PCP Internal Medicine; Visit Provider Hospitalist
DX: I13.0 Hypertensive heart and chronic kidney disease with heart failure and stage 1 through stage 4 chronic kidney disease, or unspecified chronic kidney disease (principal); I50.23 Acute on chronic systolic (congestive) heart failure; J96.01 Acute respiratory failure with hypoxia; N18.4 Chronic kidney disease, stage 4 (severe); I48.20 Chronic atrial fibrillation, unspecified; E11.22 Type 2 diabetes mellitus with diabetic chronic kidney disease; E78.00 Pure hypercholesterolemia, unspecified; K21.9 Gastro-esophageal reflux disease without esophagitis; I25.10 Atherosclerotic heart disease of native coronary artery without angina pectoris; I25.5 Ischemic cardiomyopathy; Z20.822 Contact with and (suspected) exposure to COVID-19; Z95.1 Presence of aortocoronary bypass graft; I34.0 Nonrheumatic mitral (valve) insufficiency; I27.20 Pulmonary hypertension, unspecified; Z95.810 Presence of automatic (implantable) cardiac defibrillator; Z86.73 Personal history of transient ischemic attack (TIA), and cerebral infarction without residual deficits; Z87.891 Personal history of nicotine dependence; Z88.8 Allergy status to other drugs, medicaments and biological substances; Z79.01 Long term (current) use of anticoagulants; Z79.84 Long term (current) use of oral hypoglycemic drugs; Z79.899 Other long term (current) drug therapy
CPT/HCPCS: 0241U; 36415; 71045; 80048; 80053; 82247; 82947; 83735; 83880; 84145; 84484; 85027; 93005; 96374; 99285; J1940

== ENCOUNTER → 2022-07-20 13:53 | Outpatient (BNVA) | payer MEDICARE, SELFPAY | PROVIDERS: PCP Internal Medicine; Visit Provider Nurse Practitioner Family | DX: I11.0 Hypertensive heart disease with heart failure (principal); I50.20 Unspecified systolic (congestive) heart failure; I42.9 Cardiomyopathy, unspecified; I25.10 Atherosclerotic heart disease of native coronary artery without angina pectoris; E78.00 Pure hypercholesterolemia, unspecified; Z95.810 Presence of automatic (implantable) cardiac defibrillator | CPT/HCPCS: 99212 ==

== ENCOUNTER → 2022-09-26 15:16 | Outpatient (BNVA) | payer MEDICARE, OTHER, SELFPAY | PROVIDERS: PCP Internal Medicine; Visit Provider Internal Medicine Cardiovascular Disease | DX: I50.23 Acute on chronic systolic (congestive) heart failure (principal); I25.10 Atherosclerotic heart disease of native coronary artery without angina pectoris; I25.5 Ischemic cardiomyopathy; I11.0 Hypertensive heart disease with heart failure; Z87.891 Personal history of nicotine dependence; Z95.1 Presence of aortocoronary bypass graft; Z45.018 Encounter for adjustment and management of other part of cardiac pacemaker | CPT/HCPCS: 99212 ==

== ENCOUNTER 2022-12-04 07:26 | Outpatient (REF) | payer MEDICARE, OTHER, SELFPAY ==
[2022-12-04 07:42] LABS: MANUAL DIFF FLAG NO
[2022-12-04 08:23] LABS: Basophils Percent Auto 0.6 % (0-2); Eosinophils Absolute Auto 0.1 X10*3/uL (0.0-0.4); Eosinophils Percent Auto 1.7 % (0-4); Hematocrit 34.3 % (42.0-52.0); Hemoglobin 10.7 g/dl (14.0-18.0); Imm Gran Abs Auto 0.03 X10*3/uL (0.00-0.03); Imm Gran Pct Auto 0.4 % (0.0-0.4); Immature Retic Fraction 8.8 % (2.3-13.4); Lymphocytes Absolute Auto 0.6 X10*3/uL (1.2-4.9); Lymphocytes Percent Auto 7.6 % (20-40); Mean Corpuscular HGB Conc 31.2 g/dl (31.0-36.0); Mean Corpuscular Hemoglobin 28.5 pg (27.0-33.0); Mean Corpuscular Volume 91.5 fL (80.0-98.0); Mean Platelet Volume 11.1 fL (9.4-12.4); Monocytes Absolute Auto 0.8 X10*3/uL (0.1-1.2); Monocytes Percent Auto 10.8 % (2-11); Neutrophils Absolute Auto 5.7 x10*3/uL (2.0-8.3); Neutrophils Percent Auto 78.9 % (45-73); Platelet Count 204 X10*3/uL (160-400); Red Blood Count 3.75 X10*6/uL (4.60-5.80); Red Cell Distribution Width 17.2 % (11.0-16.0); Retic HGB Equivalent 33.3 pg (30.0-35.0); Reticulocytes Absolute 0.073 X10*6/uL (0.026-0.095); White Blood Count 7.2 X10*3/uL (4.8-10.8)
[2022-12-04 08:36] LABS: Estimated Average Glucose 134 mg/dL; Hemoglobin A1c % 6.3 %
[2022-12-04 09:03] LABS: B Type Natriuretic Peptide 429 pg/mL (<100)
[2022-12-04 09:08] LABS: Alanine Aminotransferase 16 U/L (0-40); Albumin Level 3.6 g/dL (3.5-5.0); Alkaline Phosphatase 136 U/L (39-117); Anion Gap 13 (12-20); Aspartate Amino Transferase 22 U/L (5-37); Bilirubin Total 2.2 mg/dL (0.0-1.0); Blood Urea Nitrogen 44 mg/dL (9-16); Calcium 8.9 mg/dL (8.4-10.2); Carbon Dioxide 31 mmol/L (22-29); Chloride 99 mmol/L (96-108); Estimated Glomerular Filt Rate 25; Glucose Random 161 mg/dL (60-115); Iron 50 mcg/dL (45-160); Percent Iron Saturation 16 % (15-50); Potassium 4.5 mmol/L (3.3-5.1); Sodium 138 mmol/L (135-145); Total Iron Binding Capacity 305 mcg/dL (228-428); Total Protein 7.6 g/dL (6.5-8.0); Unsaturated Iron Binding 255 ug/dL
[2022-12-04 09:59] LABS: Ferritin 183 ng/mL (20-250); Folate 19.8 ng/mL (> or = 4.0); Free T4 (Free Thyroxine) 1.22 ng/dL (0.71-1.85); Thyroid Stimulating Hormone 2.82 uIU/mL (0.32-4.0); Vitamin B12 409 pg/mL (200-900)
== END 2022-12-04 07:27 | disposition home or self-care (01) ==
LOC: HO.LAB 07:26
PROVIDERS: PCP Internal Medicine; Visit Provider Internal Medicine
DX: I48.20 Chronic atrial fibrillation, unspecified (principal); D64.9 Anemia, unspecified; E11.65 Type 2 diabetes mellitus with hyperglycemia
CPT/HCPCS: 36415; 80053; 82607; 82728; 82746; 83036; 83540; 83880; 84439; 84443; 85025; 85045

== ENCOUNTER 2023-01-08 15:16 | Outpatient (AMB) | payer MEDICARE, OTHER, SELFPAY ==
--- NOTE | 2023-01-08 15:20 | A.OFFVIS_ITS ---
Intake Vital Signs 01/08/23 15:21 Height 5 ft 6 in Weight 171 lb 15.369 oz BMI 27.8 BP 120/82 Blood Pressure Location Lt brachial Position Sitting Pulse 88 Intake Visit Reasons: 3 mth f/up Intake Note: 3 month follow-up with [employer] Required: No Allergies dabigatran etexilate [Pradaxa] Allergy (Unknown, Verified 12/06/22 14:00) indigestion sacubitril [From ENTRESTO] Allergy (Unknown, Verified 12/06/22 14:00) FEELS LIKE HAVING A HEART ATTACK valsartan [From ENTRESTO] Allergy (Unknown, Verified 12/06/22 14:00) FEELS LIKE HAVING A HEART ATTACK Medication List - Last Reconciled 01/08/23 by Chevy Montanez MD allopurinol 100 mg PO BEDTIME atorvastatin 80 mg PO DAILY@1800 90 days bumetanide 1 mg PO DAILY carvedilol 6.25 mg PO BID colchicine (Colcrys) 0.6 mg PO DAILY 90 days gabapentin 100 mg PO DAILY@1200 glimepiride 4 mg PO QAM meclizine 25 mg PO TID multivitamin 1 tab PO DAILY nitroglycerin 0.4 mg/hr (Nitro-Dur) 1 patch transdermal DAILY 90 days nitroglycerin (Nitrostat) 0.4 mg sublingual Q5M PRN rivaroxaban (Xarelto) 15 mg PO DAILY@1800 ropinirole 0.25 mg PO BID 90 days sitagliptin phosphate (Januvia) 50 mg PO DAILY tamsulosin (Flomax) 0.4 mg PO DAILY@1200 HPI HPI Comments History of Present Illness Details Ethan comes for follow-up. Since increasing his LV thresholds he says he has been feeling miserable. He has significant symptoms with diaphragmatic stimulation. His jumping significantly worsened especially in certain position. He said he has very poor quality of life related to it. He has not had any heart failure hospitalization related to it. He takes extra Bumex about 2 to 3 times a week. He has no worsening orthopnea, PND, or shortness of breath. No palpitations, lightheadedness, syncope. No ICD discharge. [facility] Medical History Acute on chronic systolic (congestive) heart failure Aortic aneurysm Biventricular ICD (implantable cardioverter-defibrillator) in place CAD (coronary artery disease) Chronic atrial fibrillation Congestive heart failure GERD (gastroesophageal reflux disease) Gout Heart failure with reduced ejection fraction History of GI bleed Hypercholesterolemia Hypertension Ischemic cardiomyopathy Obesity (BMI 30-39.9) TIA (transient ischemic attack) Type 2 diabetes mellitus with hyperglycemia Surgical History Coronary artery disease involving coronary bypass graft History of cardiac defibrillator placement History of cholecystectomy Family History Father CVD (cardiovascular disease) Hypertension Mother Cancer Social History Household Members: Family Housing: Apartment Do you presently have visiting nurse or other home services: No Alcohol intake: never Patient Tobacco Use Status: Former Tobacco user Years Smoked: quit 1985 e-Cigarette/Vaping Use: Never Used Second Hand Smoke Exposure: No Advance Directives Date on File: 06/19/22 service: Yes Current occupational status: retired Cognitive needs: No Hearing needs: No Vision needs: Yes Review of Systems Const Denies chills, Denies fatigue, Denies fever(s), Denies frequent falls, Denies weakness, Denies weight gain and Denies weight loss ENT Denies dizziness Card Denies chest pain, Denies leg edema, Denies lightheadedness, Denies palpitations, Denies dyspnea, Denies dyspnea on exertion, Denies orthopnea and Denies other (loss of consciousness) Resp Denies cough, Denies dyspnea and Denies dyspnea on exertion GI Denies hematochezia and Denies change in stool character Musc Denies abnormal gait, Denies muscle weakness, Denies numbness, Denies radiating pain into limb and Denies tingling Neuro Denies abnormal gait, Denies dizziness, Denies frequent falls, Denies numbness, Denies tingling and Denies weakness Endo Denies fatigue and Denies palpitations Physical Exam Vital Signs: Last Vital Signs Pulse 88 01/08/23 15:21 BP 120/82 01/08/23 15:21 BMI result Body Mass Index 27.8 Office Procedures Cardiac Device Check Cardiac Device Check Details: [employer] biventricular ICD in place. Programmed in VVIR 70 beats per minute. Noted diaphragmatic stim. LV pacing thresholds was then reduced to threshold without any margin. RV pacing thresholds adequate. Biventricular pacing were 99% of time. Underlying atrial fibrillation noted. Pacing and shock lead impedance is stable. Battery life is at about 18 months [id number] Cardiac Device Check, multi lead implantable defibrillator Procedure code (CPT) selection complete Assessment & Plan Assessment & Plan (1) Heart failure with reduced ejection fraction: Code(s): I50.20 - Unspecified systolic (congestive) heart failure Plan: Heart failure with reduced ejection fraction with no recent hospitalization with heart failure with current high percentage Bi V pacing and diuretic use. He is also cut down his oral fluid intake. However he cannot absolutely tolerate increase LV pacing thresholds. These have been reduced. High risk of recurrent heart failure syndrome was discussed with reduced Bi V pacing efficiency. This was discussed with him. He understands agrees and he says he would tolerate heart failure syndrome rather than diaphragmatic stimulation. Continue current diuretic elana. Daily weight monitoring avoidance of salt loading was discussed. Additional diuretics as need be. Agree with reduction in overall fluid intake. Continue carvedilol therapy. Cannot use renin angiotensin system antagonist due to renal insufficiency. Overall prognosis is guarded. (2) Chronic atrial fibrillation: Code(s): I48.20 - Chronic atrial fibrillation, unspecified Plan: Chronic rate control atrial fibrillation. Continue rate control approach. Has failed rhythm control approach in the past. Continue full oral anticoagulation, currently on Xarelto which is renally adjusted 50 mg daily. Quarterly renal function test should be pursued. (3) Biventricular ICD (implantable cardioverter-defibrillator) in place: Code(s): Z95.810 - Presence of automatic (implantable) cardiac defibrillator Plan: Biventricular ICD in place, working well. Reprogrammed to lower LV thresholds which has led to improvement in his symptoms right away with much improved diaphragmatic stimulation with reduced thresholds. High risk of development of heart failure syndrome was discussed. He understands agrees. Will follow remotely. (4) CAD (coronary artery disease): Code(s): I25.10 - Atherosclerotic heart disease of [place] coronary artery without angina pectoris Qualifiers: Coronary Disease-Associated Artery/Lesion type: [place] artery [place] vs. transplanted heart: [place] heart Associated angina: without angina Qualified Code(s): I25.10 - Atherosclerotic heart disease of [place] coronary artery without angina pectoris Plan: CAD with remote coronary artery bypass grafting. Currently without any symptoms of angina. Continue aggressive vascular risk factor modification. Currently on full oral anticoagulation with Xarelto. Will avoid aspirin therapy due to recurrent anemia and high bleeding risk. Blood pressure is well optimized. Continue high-intensity statin therapy. Follow up in the clinic in 6 months time, sooner p.r.n.. Thank you for allowing me to partake in hisb care Medications: Changed From bumetanide extra as needed for edema 1 mg PO DAILY 90 tabs 1RF To bumetanide extra as needed for edema 1 mg PO DAILY Coding Level of Care Code Est Pt Level 4 (77061) Diagnoses Heart failure with reduced ejection fraction I50.20 Chronic atrial fibrillation I48.20 Biventricular ICD (implantable cardioverter-defibrillator) in place Z95.810 CAD (coronary artery disease) I25.10 Coronary Disease-Associated Artery/Lesion type: [place] artery [place] vs. transplanted heart: [place] heart Associated angina: without angina CPT Codes Cardiac Device Check - Cardiac Device 6: [id number] Cardiac Device Check, multi lead implantable defibrillator ([id number])
[2023-01-08 15:21] VITALS: BP 120/82; PULSE 88; BMI 27.8
== END 2023-01-08 16:00 ==
PROVIDERS: Visit Provider Internal Medicine Cardiovascular Disease
DX: I50.20 Unspecified systolic (congestive) heart failure (principal); I48.20 Chronic atrial fibrillation, unspecified; Z95.810 Presence of automatic (implantable) cardiac defibrillator; I25.10 Atherosclerotic heart disease of native coronary artery without angina pectoris
CPT/HCPCS: 93284; 99214

== ENCOUNTER → 2023-01-08 15:16 | Outpatient (BNVA) | payer MEDICARE, OTHER, SELFPAY | PROVIDERS: Visit Provider Internal Medicine Cardiovascular Disease | DX: I50.20 Unspecified systolic (congestive) heart failure (principal); I48.20 Chronic atrial fibrillation, unspecified; I25.10 Atherosclerotic heart disease of native coronary artery without angina pectoris; Z79.01 Long term (current) use of anticoagulants; Z79.899 Other long term (current) drug therapy; Z45.02 Encounter for adjustment and management of automatic implantable cardiac defibrillator | CPT/HCPCS: 99212 ==

== ENCOUNTER 2023-01-09 01:59 | Inpatient (IN) | payer OTHER, SELFPAY ==
[2023-01-09] VITALS (7 sets, daily range): BP systolic 116–146; BP diastolic 44–66; PULSE 70–88; RESP 15–20; TEMP 36.5–36.8; O2SAT 90–100; BMI 28.0
--- NOTE | ~2023-01-09 | XR_ITS ---
EXAMINATION: XR CHEST CLINICAL INFORMATION: Shortness of breath COMPARISON: 06/27/2022 TECHNIQUE: Frontal view of the chest was obtained. FINDINGS: Left-sided pacemaker/AICD lead tips overlie the right atrium, right ventricle, and coronary sinus. Sternal wires are noted. Lung volumes are symmetric. No focal consolidation is seen. Mild diffuse interstitial prominence is similar to prior. No evidence of pneumothorax or significant pleural effusion. Cardiac silhouette remains enlarged. Calcification is present at the aortic arch. No acute osseous findings are seen. XR/XR chest 1V IMPRESSION: Mild diffuse interstitial prominence, similar to prior and which may reflect chronic changes versus subtle interstitial edema. Cardiac silhouette remains enlarged.
--- NOTE | 2023-01-09 02:06 | ECG_ITS ---
Test Reason : sob Blood Pressure : / mmHG Vent. Rate : 075 BPM Atrial Rate : 072 BPM P-R Int : 000 ms QRS Dur : 168 ms QT Int : 456 ms P-R-T Axes : 000 133 -20 degrees QTc Int : 509 ms Ventricular-paced rhythm Biventricular pacemaker detected Abnormal ECG When compared with ECG of 27-JUN-2022 02:47, Vent. rate has increased BY 5 BPM Referred By: Generic ED Physician Electronically Signed By:Jonathan Morales
[2023-01-09 02:17] LABS: Delay - Chemistry DELAY
[2023-01-09 02:44] LABS: MANUAL DIFF FLAG NO
[2023-01-09 02:47] LABS: Basophils Percent Auto 0.5 % (0-2); Eosinophils Absolute Auto 0.3 X10*3/uL (0.0-0.4); Eosinophils Percent Auto 3.6 % (0-4); Hematocrit 32.2 % (42.0-52.0); Hemoglobin 10.4 g/dl (14.0-18.0); Imm Gran Abs Auto 0.02 X10*3/uL (0.00-0.03); Imm Gran Pct Auto 0.2 % (0.0-0.4); Lymphocytes Absolute Auto 0.6 X10*3/uL (1.2-4.9); Lymphocytes Percent Auto 6.6 % (20-40); Mean Corpuscular HGB Conc 32.3 g/dl (31.0-36.0); Mean Corpuscular Hemoglobin 29.2 pg (27.0-33.0); Mean Corpuscular Volume 90.4 fL (80.0-98.0); Mean Platelet Volume 11.1 fL (9.4-12.4); Monocytes Absolute Auto 1.1 X10*3/uL (0.1-1.2); Neutrophils Absolute Auto 6.4 x10*3/uL (2.0-8.3); Neutrophils Percent Auto 76.1 % (45-73); Platelet Count 193 X10*3/uL (160-400); Red Blood Count 3.56 X10*6/uL (4.60-5.80); Red Cell Distribution Width 16.5 % (11.0-16.0); White Blood Count 8.4 X10*3/uL (4.8-10.8)
[2023-01-09 02:58] LABS: Anion Gap 16 (12-20); Blood Urea Nitrogen 43 mg/dL (9-16); Calcium 10.1 mg/dL (8.4-10.2); Carbon Dioxide 25 mmol/L (22-29); Chloride 103 mmol/L (96-108); Creatinine Clr Calc Pharmacy 27.8; Estimated Glomerular Filt Rate 31; Glucose Random 141 mg/dL (60-115); Potassium 4.1 mmol/L (3.3-5.1); Sodium 140 mmol/L (135-145)
[2023-01-09 04:13] LABS: Troponin-I High Sensitivity 20.1 ng/L (<3.5-35.0)
[2023-01-09 04:26] LABS: B Type Natriuretic Peptide 985 pg/mL (<100)
--- NOTE | 2023-01-09 06:43 | ED_ITS ---
HPI - SOB/Dyspnea General Chief Complaint: Dyspnea Stated Complaint: SOB Time Seen by Provider: 01/09/23 06:31 History of Present Illness HPI Narrative: 82 year old male patient with a PMH of HFrEF (EF 30-35% s/p AICD), Chronic afib On Xarelto, CAD, HTN, Diabetes Mellitus type II, CKD, and BPH presents today with c/o SOB, chest tightness, and excessive belching for the past two days. P atient elicits general fatigue, malaise and orthopnea. Patient denies chest pain, fevers, cough, n/v, numbness/tingling, and recent illnesses. Patient states everything he eats makes him bloated and have to belch. MD elicited complaint: shortness of breath Pertinent past history: congestive heart failure and diabetes Onset (ago): day(s) Timing: progressively worsening Severity: moderate Exacerbating factors: lying flat and exertion Relieving factors: upright position Known history of: congestive heart failure Associated symptoms: orthopnea Treatment prior to arrival: none Related Data Home oxygen amount: none Home Medications Medication Instructions Recorded Confirmed multivitamin 1 tab PO DAILY 04/12/20 01/08/23 allopurinol 100 mg tablet 100 mg PO BEDTIME 06/18/22 01/08/23 gabapentin 100 mg capsule 100 mg PO DAILY@1200 06/27/22 01/08/23 tamsulosin 0.4 mg capsule (Flomax) 0.4 mg PO DAILY@1200 06/27/22 01/08/23 bumetanide 1 mg tablet 1 mg PO DAILY 01/08/23 01/08/23 Previous Rx's Medication Instructions Recorded nitroglycerin 0.4 mg/hr 1 patch transdermal DAILY 90 days 12/22/21 transdermal 24 hour patch #90 ea (Nitro-Dur) ropinirole 0.25 mg tablet 0.25 mg PO BID 90 days #180 tabs 07/20/22 atorvastatin 80 mg tablet 80 mg PO DAILY@1800 90 days #90 07/24/22 tabs carvedilol 6.25 mg tablet 6.25 mg PO BID #180 tabs 07/24/22 meclizine 25 mg tablet 25 mg PO TID #30 tabs 09/13/22 rivaroxaban 15 mg tablet (Xarelto) 15 mg PO DAILY@1800 #90 tabs 09/21/22 glimepiride 4 mg tablet 4 mg PO QAM #90 tabs 10/24/22 sitagliptin phosphate 50 mg tablet 50 mg PO DAILY #90 tabs 10/24/22 (Januvia) colchicine 0.6 mg tablet (Colcrys) 0.6 mg PO DAILY 90 days #90 tabs 12/20/22 nitroglycerin 0.4 mg sublingual 0.4 mg sublingual Q5M PRN chest 12/20/22 tablet (Nitrostat) pain #25 tabs Allergies Allergy/AdvReac Type Severity Reaction Status Date / Time dabigatran etexilate Allergy Unknown indigestion Verified 01/09/23 05:49 [Pradaxa] sacubitril [From ENTRESTO] Allergy Unknown FEELS LIKE Verified 01/09/23 05:49 HAVING A HEART ATTACK valsartan [From ENTRESTO] Allergy Unknown FEELS LIKE Verified 01/09/23 05:49 HAVING A HEART ATTACK Review of Systems Review of Systems: Yes all other systems are reviewed and are negative ENT: Reports system reviewed and no additional complaints, except as documented Cardiovascular: Cardiovascular: Reports no additional cardiovascular complaints, Reports dyspnea and Reports orthopnea Respiratory: Respiratory: Denies chest congestion, Denies cough, Denies hemoptysis, Denies excessive phlegm production and Reports dyspnea Gastrointestinal: Gastrointestinal: Denies abdominal pain, Reports belching, Reports excessive flatus, Denies diarrhea, Denies nausea and Denies vomiting Genitourinary: Genitourinary: Reports no additional male genitourinary complaints Musculoskeletal: Musculoskeletal: Reports no additional musculoskeletal complaints Integumentary/Breasts: Skin/Breast: Reports system reviewed and no additional complaints, except as docu Neurologic: Reports system reviewed and no additional complaints, except as documented [facility] Past Medical History Medical History Acute on chronic systolic (congestive) heart failure Aortic aneurysm Biventricular ICD (implantable cardioverter-defibrillator) in place CAD (coronary artery disease) Chronic atrial fibrillation Congestive heart failure GERD (gastroesophageal reflux disease) Gout Heart failure with reduced ejection fraction History of GI bleed Hypercholesterolemia Hypertension Ischemic cardiomyopathy Obesity (BMI 30-39.9) TIA (transient ischemic attack) Type 2 diabetes mellitus with hyperglycemia Surgical History Coronary artery disease involving coronary bypass graft History of cardiac defibrillator placement History of cholecystectomy Family History Family History Father CVD (cardiovascular disease) Hypertension Mother Cancer Social History Social History Household Members: Family Housing: Apartment Do you presently have visiting nurse or other home services: No Alcohol intake: never Patient Tobacco Use Status: Former Tobacco user Years Smoked: quit 1986 Smoked in Last 30 Days: No e-Cigarette/Vaping Use: Never Used Second Hand Smoke Exposure: No Use of substances other than those prescribed or required for medical reasons: No Advance Directives: Yes Advance Directives on File: Yes Advance Directives Date on File: 06/19/22 service: Yes Current occupational status: retired Cognitive needs: No Hearing needs: No Vision needs: Yes Physical Exam Vital Signs: Vital Signs: Last Vital Signs Temp 98.0 F 01/09/23 05:09 Pulse 88 01/09/23 05:09 Resp 16 01/09/23 05:09 BP 116/52 L 01/09/23 05:09 Pulse Ox 93 01/09/23 05:09 O2 Del Method Room Air 01/09/23 05:09 BMI result Body Mass Index 28.0 Appearance: Alert. Oriented X3. No acute distress. Head: normocephalic, atraumatic. Eyes: Pupils equal, round and reactive to light. ENT: Pharynx normal. No tonsillar swelling or exudate. Neck: Normal inspection. Neck supple. CVS: Normal heart rate and rhythm. Pulses normal. Respiratory: No respiratory distress. + mild crackles noted on right Abdomen: Soft and nontender. +BS x4 Skin: Skin warm and dry. Normal skin color. Normal skin turgor. No rashes. Extremities: 2+ lower extremity edema bilaterally. No joint swelling. Neuro/psych: Oriented X 3. Normal speech and cognition. Resp: Effort & Inspection: normal respiratory effort, able to speak in complete sentences and no cough Auscultation: crackles on the right Extrem: General: Yes edema Medical Decision Making Medical Decision Making MDM Narrative: 82 year old male patient with a PMH of HFrEF (30-35%), Chronic afib (Biventricular ICD), CAD, HTN, Diabetes Mellitus type II, CKD, and BPH presents today with c/o SOB, orthopnea, chest tightness, and excessive belching for the past two days. Chest xray showing some interstitial edema. BNP almost 1000 which is up from his prior 429 in November. SpO2 91-93% when standing up. No respiratory distress. Bumex 2mg IV to be administered Additional Troponin ordered to trend, initial was only 20 Plan: admission Differential Diagnosis Differential Diagnoses: The differential diagnosis associated with the presentation includes Pneumonia, acute CHF exacerbation, COPD, less likely PE given anticoagulated, ACS Admission/Observation Consideration of admission/observation: Escalation of care including admission/observation considered requiring admit for IV diuresis Consult Healthcare Provider Management of the patient was discussed with: Hospitalist Lab Data MDM Lab Attestation statement: I reviewed the patient's lab results. No evidence of electrolyte abnormalities, BUN and creatinine ratio at baseline, BNP has doubled since 01/09/23 02:38 01/09/23 02:38 Labs: Lab Results 01/09/23 01/09/23 01/09/23 Range/Units 02:16 02:38 02:38 WBC 8.4 (4.8-10.8) X10*3/uL RBC 3.56 L (4.60-5.80) X10*6/uL Hgb 10.4 L (14.0-18.0) g/dl Hct 32.2 L (42.0-52.0) % MCV 90.4 (80.0-98.0) fL MCH 29.2 (27.0-33.0) pg MCHC 32.3 (31.0-36.0) g/dl RDW 16.5 H (11.0-16.0) % Plt Count 193 (160-400) X10*3/uL MPV 11.1 (9.4-12.4) fL Immature Gran % (Auto) 0.2 (0.0-0.4) % Neut % (Auto) 76.1 H (45-73) % Lymph % (Auto) 6.6 L (20-40) % [place] % (Auto) 13.0 H (2-11) % Eos % (Auto) 3.6 (0-4) % Baso % (Auto) 0.5 (0-2) % Lymph # (Auto) 0.6 L (1.2-4.9) X10*3/uL [place] # (Auto) 1.1 (0.1-1.2) X10*3/uL Eos # (Auto) 0.3 (0.0-0.4) X10*3/uL Baso # (Auto) 0.0 (0.0-0.2) X10*3/uL Abs Immat Gran (auto) 0.02 (0.00-0.03) X10*3/uL Absolute Neuts (auto) 6.4 (2.0-8.3) x10*3/uL Absolute Nucleated RBC 0.000 (0.0-0.012) X10*3/uL Nucleated RBC % (auto) 0.0 (0.0-0.2) /100WBC Sodium 140 (135-145) mmol/L Potassium 4.1 (3.3-5.1) mmol/L Chloride 103 (96-108) mmol/L Carbon Dioxide 25 (22-29) mmol/L Anion Gap 16 (12-20) BUN 43 H (9-16) mg/dL Creatinine 2.09 H (0.5-1.4) mg/dL Estim Creat Clear Calc 27.8 Estimated GFR 31 Random Glucose 141 H (60-115) mg/dL Calcium 10.1 D (8.4-10.2) mg/dL Troponin I High Sens (<3.5-35.0) ng/L B-Natriuretic Peptide (<100) pg/mL Specimen Comment DELAY 01/09/23 01/09/23 01/09/23 Range/Units 02:38 02:38 07:05 WBC (4.8-10.8) X10*3/uL RBC (4.60-5.80) X10*6/uL Hgb (14.0-18.0) g/dl Hct (42.0-52.0) % MCV (80.0-98.0) fL MCH (27.0-33.0) pg MCHC (31.0-36.0) g/dl RDW (11.0-16.0) % Plt Count (160-400) X10*3/uL MPV (9.4-12.4) fL Immature Gran % (Auto) (0.0-0.4) % Neut % (Auto) (45-73) % Lymph % (Auto) (20-40) % [place] % (Auto) (2-11) % Eos % (Auto) (0-4) % Baso % (Auto) (0-2) % Lymph # (Auto) (1.2-4.9) X10*3/uL [place] # (Auto) (0.1-1.2) X10*3/uL Eos # (Auto) (0.0-0.4) X10*3/uL Baso # (Auto) (0.0-0.2) X10*3/uL Abs Immat Gran (auto) (0.00-0.03) X10*3/uL Absolute Neuts (auto) (2.0-8.3) x10*3/uL Absolute Nucleated RBC (0.0-0.012) X10*3/uL Nucleated RBC % (auto) (0.0-0.2) /100WBC Sodium (135-145) mmol/L Potassium (3.3-5.1) mmol/L Chloride (96-108) mmol/L Carbon Dioxide (22-29) mmol/L Anion Gap (12-20) BUN (9-16) mg/dL Creatinine (0.5-1.4) mg/dL Estim Creat Clear Calc Estimated GFR Random Glucose (60-115) mg/dL Calcium (8.4-10.2) mg/dL Troponin I High Sens 20.1 21.2 (<3.5-35.0) ng/L B-Natriuretic Peptide 985 H (<100) pg/mL Specimen Comment Independent Interpretation I performed an independent interpretation of an: EKG and Plain X-Ray Interpretation: cxr w/ interstitial edema/fullness, no significant pleural effusion or focal infiltrate, bi-V AICD in place EKG with V-paced rhythm, HR 75 bpm, PVC present, no ST segment elevations Radiology Impression Discussion of test interpretation with radiology: I have reviewed the radiologist's reading. Radiologist Impression: ?XR/XR chest 1V IMPRESSION: Mild diffuse interstitial prominence, similar to prior and which may reflect chronic changes versus subtle interstitial edema. Cardiac silhouette remains enlarged. Independent Historian Clinical information obtained from an independent historian. History obtained from or confirmed by: Other (adult son at bedside) External Record Review External record reviewed: Inpatient record, Office record, Outpatient record, Prior outpatient labs and Prior outpatient radiology Prescription Management I considered prescription management with: Other (IV bumex) Chronic Conditions Patient?s care impacted by: Other (CHF, afib) Critical Care Time Critical Care Time Critical Care Time: Yes Total Critical Care Time: 35 Attestation: I have personally provided critical care time exclusive of time spent on separately billable procedures. Time includes review of lab data, radiology results, discussion with consultants, and monitoring for potential de compensation. Intervention performed as documented. Discharge Plan Discharge Clinical Impression: Acute exacerbation of congestive heart failure Patient Disposition: Admitted As Inpatient
[2023-01-09 07:35] LABS: Troponin-I High Sensitivity 21.2 ng/L (<3.5-35.0)
--- NOTE | 2023-01-09 08:15 | PHA.MEDREC ---
Pharmacy Consult ? Medication Reconciliation Pharmacy has completed the medication reconciliation. Patient had a list on their phone
--- NOTE | 2023-01-09 08:58 | PC.NURSE ---
pt a/o 4, no sob/esteban noted pt c/o sob, 02 sat 94% on r/a. lungs - cta. heart sounds - regular with paced rhythm. abd soft and non-tender, bs + x 4 quads. no edema noted pt is admitted to the hosp. pt aware of plan of care.
[2023-01-09] MEDS: Magnesium Hydrox/Alum Hydrox 30 ML ORAL.SUSP PO (09:00)
[2023-01-09] MEDS: Bumetanide 1 MG/4 ML VIAL 2 MG IVPUSH (09:00)
[2023-01-09] MEDS: Simethicone 80 MG TAB.CHEW 160 MG PO (09:00)
--- NOTE | 2023-01-09 09:07 | PC.NURSE ---
02 sat between 89-94% on r/a. 02 applied at 2l/m via n/c.
--- NOTE | 2023-01-09 10:02 | PC.NURSE ---
dr. linn at bedside, pt aware of plan of care.
--- NOTE | 2023-01-09 10:36 | P.HPHOSP_ITS ---
History of Present Illness Date of Service: 01/09/23 Chief Complaint: shortness of breath This is an 82-year-old male with a past medical history of heart failure with reduced ejection fraction, chronic AFib on oral anticoagulation, CAD status post remote CABG, biventricular ICD in place, type 2 diabetes, GERD, history of GI bleed, aortic aneurysm who presents to the hospital with a several-day history of worsening shortness of breath. The patient states that he has been unable to lay in the supine position over the last 24 hours and in fact his dyspnea did not improve in the sitting position as well and hence he presented to the emergency room. He denies any lower extremity edema nor any weight gain. He denies any dietary indiscretions and reports compliance with his prescribed medications. He is aware to take an extra dose of Bumex should his weight increase by 3 lb. He denies having to do this over last several days. However, he was seen in the outpatient cardiology clinic for routine follow-up on the day prior to admission during which his biventricular ICD was adjusted to a lower LV threshold and now presents with CHF symptoms. Upon arrival to the emergency room, the patient was noted to be hypoxic down to 90% on room air. His BNP was elevated to 900, more than twice is prior value. Chest x-ray was consistent with diffuse interstitial prominence. He was placed on supplemental oxygen, given IV Bumex with minimal urine output. Hence he will be admitted for further treatment of acute CHF. Review of Systems Review of Systems: Negative except HPI ON LICENSE OF [facility] Medical History Acute on chronic systolic (congestive) heart failure Aortic aneurysm Biventricular ICD (implantable cardioverter-defibrillator) in place CAD (coronary artery disease) Chronic atrial fibrillation Congestive heart failure GERD (gastroesophageal reflux disease) Gout Heart failure with reduced ejection fraction History of GI bleed Hypercholesterolemia Hypertension Ischemic cardiomyopathy Obesity (BMI 30-39.9) TIA (transient ischemic attack) Type 2 diabetes mellitus with hyperglycemia Family History Father CVD (cardiovascular disease) Hypertension Mother Cancer Surgical History Coronary artery disease involving coronary bypass graft History of cardiac defibrillator placement History of cholecystectomy Social History Household Members: Family Housing: Apartment Do you presently have visiting nurse or other home services: No Alcohol intake: never Patient Tobacco Use Status: Former Tobacco user Years Smoked: quit 1986 Smoked in Last 30 Days: No e-Cigarette/Vaping Use: Never Used Second Hand Smoke Exposure: No Use of substances other than those prescribed or required for medical reasons: No Advance Directives: Yes Advance Directives on File: Yes Advance Directives Date on File: 06/19/22 service: Yes Current occupational status: retired Cognitive needs: No Hearing needs: No Vision needs: Yes Meds Allergies Allergy/AdvReac Type Severity Reaction Status Date / Time dabigatran etexilate Allergy Unknown indigestion Verified 01/09/23 05:49 [Pradaxa] sacubitril [From ENTRESTO] Allergy Unknown FEELS LIKE Verified 01/09/23 05:49 HAVING A HEART ATTACK valsartan [From ENTRESTO] Allergy Unknown FEELS LIKE Verified 01/09/23 05:49 HAVING A HEART ATTACK Active Medications: Current Medications Acetaminophen (Acetaminophen 325 Mg Tablet) 650 mg PO Q6H PRN PRN Reason: Pain, Mild (Pain Scale 1-3) Ondansetron HCl (Ondansetron Hcl 4 Mg/2 Ml Vial) 4 mg IVPUSH Q8H PRN PRN Reason: Nausea and Vomiting Pharmacy Consult (Consult Rx Perform Med Rec) 1 each MISCELLANE ONCE PRN PRN Reason: Consult order Sodium Chloride (0.9 % Sodium Chloride Flush 3 Ml Syringe) [facility] Medication Instructions Recorded Confirmed Last Taken Type multivitamin 1 tab PO DAILY 04/12/20 01/09/23 01/08/23 History allopurinol 100 mg tablet 100 mg PO BEDTIME 06/18/22 01/09/23 01/08/23 History gabapentin 100 mg capsule 100 mg PO DAILY@1200 06/27/22 01/09/23 01/08/23 History tamsulosin 0.4 mg capsule (Flomax) 0.4 mg PO DAILY@1200 06/27/22 01/09/23 01/08/23 History bumetanide 1 mg tablet 1 mg PO DAILY 01/08/23 01/09/23 01/08/23 History meclizine 25 mg tablet 25 mg PO TID PRN Dizziness 01/09/23 01/09/23 Unknown History Physical Exam Vital Signs and Narrative: Vital Signs: Last Vital Signs Temp 98.1 F 01/09/23 07:44 Pulse 72 01/09/23 10:02 Resp 20 01/09/23 10:02 BP 135/66 01/09/23 10:02 Pulse Ox 98 01/09/23 10:02 O2 Del Method Nasal Cannula 01/09/23 10:02 O2 Flow Rate 2 01/09/23 10:02 BMI result Body Mass Index 28.0 Const: Other: Constitutional - Awake and Alert, comfortable in sitting position, unable to lay supine Eyes - PERRLA, EOMI Cardiovascular - S1S2, RRR, No edema Respiratory - saturation 98% on 2L; 90% on RA; no distress in sitting position with diminished sounds at bases Gastrointestinal - NT / ND; +BS; No rebound or guarding - No CVA tenderness Extremities - no calf tenderness bilaterally, no swelling Musculoskeletal - Normal inspection, normal ROM Skin - Warm/Dry Neurological - Alert & oriented x3, No focal deficit Psychological - Appropriate affect Results Labs 01/09/23 02:38 01/09/23 02:38 Labs: Laboratory Results - last 24 hr 01/09/23 01/09/23 01/09/23 02:16 02:38 02:38 MCV 90.4 MCH 29.2 MCHC 32.3 RDW 16.5 H Plt Count 193 MPV 11.1 Immature Gran % (Auto) 0.2 Neut % (Auto) 76.1 H Lymph % (Auto) 6.6 L [place] % (Auto) 13.0 H Eos % (Auto) 3.6 Baso % (Auto) 0.5 Lymph # (Auto) 0.6 L [place] # (Auto) 1.1 Eos # (Auto) 0.3 Baso # (Auto) 0.0 Abs Immat Gran (auto) 0.02 Absolute Neuts (auto) 6.4 Absolute Nucleated RBC 0.000 Nucleated RBC % (auto) 0.0 Anion Gap 16 Estim Creat Clear Calc 27.8 Estimated GFR 31 Random Glucose 141 H Calcium 10.1 D Troponin I High Sens B-Natriuretic Peptide Specimen Comment DELAY 01/09/23 01/09/23 01/09/23 02:38 02:38 07:05 MCV MCH MCHC RDW Plt Count MPV Immature Gran % (Auto) Neut % (Auto) Lymph % (Auto) [place] % (Auto) Eos % (Auto) Baso % (Auto) Lymph # (Auto) [place] # (Auto) Eos # (Auto) Baso # (Auto) Abs Immat Gran (auto) Absolute Neuts (auto) Absolute Nucleated RBC Nucleated RBC % (auto) Anion Gap Estim Creat Clear Calc Estimated GFR Random Glucose Calcium Troponin I High Sens 20.1 21.2 B-Natriuretic Peptide 985 H Specimen Comment Imaging Radiologist's Impressions: Impressions Chest X-Ray 01/09/23 02:11 IMPRESSION: Mild diffuse interstitial prominence, similar to prior and which may reflect chronic changes versus subtle interstitial edema. Cardiac silhouette remains enlarged. Assessment and Plan (1) Acute exacerbation of congestive heart failure: Status: Acute Plan This is an 82-year-old male with a complex cardiac history including HFrEF, AFib on Coumadin, biventricular ICD, diabetes, hypertension who presents to the hospital with shortness of breath. His workup in the ED is consistent with acute CHF. He has had recent adjustments to his biventricular ICD. 1. Acute on chronic HFrEF exacerbation Given 2 mg of IV Bumex in the ED, will continue 1 mg IV twice daily Intake and output Daily weights Low-sodium diet Given recent adjustments to his biventricular ICD, question if his CHF is related to this. Will consult Cardiology per their input. 2. Hypoxia likey due to #1 continue supplemental oxygen, wean as tolerated 3. CKD stage 4 SCr mildly elevated above baseline monitor closely 4. Chronic A. Fib hold coreg today while being diursed continue xarelto 5. DM hold oral POC and sliding scale Full Code DVT pptx, Xarelto Due to the patients acute CHF and concurrent hypoxia, the patient will be admitted as inpatient with the expectation that his admission is likely to span at least 2 midnights. Time Spent With Patient Time: Total time managing care of this patient today ____ minutes. Quality Stroke Does the patient have a stroke diagnosis?: No VTE Prior VTE?: No VTE Risk Level:: Medical - moderate - high VTE Device Contraindication: Treatment Not Indicated VTE Drug Contraindication: N/A - Med Ordered
[2023-01-09] MEDS: Gabapentin 100 MG CAPSULE PO (11:25)
[2023-01-09] MEDS: Tamsulosin HCL 0.4 MG CAPSULE PO (11:25)
--- NOTE | 2023-01-09 13:58 | P.CONCA_ITS ---
History of Present Illness History of Present Illness Date of Service: 01/09/23 Requesting physician: Stiven Monroy Chief complaint: SOB Narrative: 82-year-old gentleman with known cardiomyopathy and congestive heart failure, previous bypass surgery, anemia, peripheral neuropathy, gout, diabetes, hypertension and gastroesophageal reflux disease who is presenting with shortness of breath. He said over the last few days he became progressively short of breath and had orthopnea. He said he had similar episode previously. He was taking Bumex 1 mg daily. He has been compliant with his medications. He has history of atrial fibrillation and has been on rivaroxaban. Clinically he is noticed to be in heart failure and was started on IV diuretics. He is saying he is improving slowly. He is in negative balance currently. He has an allergy to ARB and cannot use ARB or Entresto. He was on carvedilol which is held right now. [facility] Past Medical History Medical History Acute on chronic systolic (congestive) heart failure Aortic aneurysm Biventricular ICD (implantable cardioverter-defibrillator) in place CAD (coronary artery disease) Chronic atrial fibrillation Congestive heart failure GERD (gastroesophageal reflux disease) Gout Heart failure with reduced ejection fraction History of GI bleed Hypercholesterolemia Hypertension Ischemic cardiomyopathy Obesity (BMI 30-39.9) TIA (transient ischemic attack) Type 2 diabetes mellitus with hyperglycemia Family History Family History Father CVD (cardiovascular disease) Hypertension Mother Cancer Surgical History Surgical History Coronary artery disease involving coronary bypass graft History of cardiac defibrillator placement History of cholecystectomy Social History Social History Household Members: Family Housing: Apartment Do you presently have visiting nurse or other home services: No Alcohol intake: never Patient Tobacco Use Status: Former Tobacco user Years Smoked: quit 1986 Smoked in Last 30 Days: No e-Cigarette/Vaping Use: Never Used Second Hand Smoke Exposure: No Use of substances other than those prescribed or required for medical reasons: No Advance Directives: Yes Advance Directives on File: Yes Advance Directives Date on File: 06/19/22 service: Yes Current occupational status: retired Cognitive needs: No Hearing needs: No Vision needs: Yes Meds Allergies Allergy/AdvReac Type Severity Reaction Status Date / Time dabigatran etexilate Allergy Unknown indigestion Verified 01/09/23 05:49 [Pradaxa] sacubitril [From ENTRESTO] Allergy Unknown FEELS LIKE Verified 01/09/23 05:49 HAVING A HEART ATTACK valsartan [From ENTRESTO] Allergy Unknown FEELS LIKE Verified 01/09/23 05:49 HAVING A HEART ATTACK Active Medications: Current Medications Acetaminophen (Acetaminophen 325 Mg Tablet) 650 mg PO Q6H PRN PRN Reason: Pain, Mild (Pain Scale 1-3) Allopurinol (Allopurinol 100 Mg Tablet) 100 mg PO BEDTIME [facility] Atorvastatin Calcium (Atorvastatin Calcium 80 Mg Tablet) 80 mg PO DAILY@1800 [facility] Bumetanide (Bumetanide 1 Mg/4 Ml Vial) 1 mg IVPUSH BID@0900,1700 [facility]; Protocol Colchicine (Colchicine 0.6 Mg Tablet) 0.6 mg PO DAILY [facility] Gabapentin (Gabapentin 100 Mg Capsule) 100 mg PO DAILY@1200 [facility] Last Admin: 01/09/23 11:25 Dose: 100 mg Meclizine HCl (Meclizine Hcl 25 Mg Tablet) 25 mg PO TID PRN PRN Reason: Dizziness Multivitamins/Vitamin C (Multivitamin Tablet) 1 tab PO DAILY [facility] Ondansetron HCl (Ondansetron Hcl 4 Mg/2 Ml Vial) 4 mg IVPUSH Q8H PRN PRN Reason: Nausea and Vomiting Pharmacy Consult (Consult Rx Perform Med Rec) 1 each MISCELLANE ONCE PRN PRN Reason: Consult order Rivaroxaban (Rivaroxaban 15 Mg Tablet) 15 mg PO DAILY@1800 [facility] Ropinirole HCl (Ropinirole Hcl 0.25 Mg Tablet) 0.25 mg PO BID [facility] Sodium Chloride (0.9 % Sodium Chloride Flush 3 Ml Syringe) 3 ml IVFLUSH QSHIFT [facility] Tamsulosin HCl (Tamsulosin Hcl 0.4 Mg Capsule) 0.4 mg PO DAILY@1200 [facility] Last Admin: 01/09/23 11:25 Dose: 0.4 mg Home Medications Medication Instructions Recorded Confirmed Last Taken Type multivitamin 1 tab PO DAILY 04/12/20 01/09/23 01/08/23 History allopurinol 100 mg tablet 100 mg PO BEDTIME 06/18/22 01/09/23 01/08/23 History gabapentin 100 mg capsule 100 mg PO DAILY@1200 06/27/22 01/09/23 01/08/23 History tamsulosin 0.4 mg capsule (Flomax) 0.4 mg PO DAILY@1200 06/27/22 01/09/23 01/08/23 History bumetanide 1 mg tablet 1 mg PO DAILY 01/08/23 01/09/23 01/08/23 History meclizine 25 mg tablet 25 mg PO TID PRN Dizziness 01/09/23 01/09/23 Unknown History Physical Exam Vital Signs: Vital Signs: Last Vital Signs Temp 97.7 F 01/09/23 11:51 Pulse 73 01/09/23 11:51 Resp 20 01/09/23 11:51 BP 120/54 L 01/09/23 11:51 Pulse Ox 99 01/09/23 11:51 O2 Del Method Nasal Cannula 01/09/23 11:51 O2 Flow Rate 2 01/09/23 11:51 BMI result Body Mass Index 28.0 GENERAL APPEARANCE: in no acute distress, pleasant. NECK: no carotid bruit, + jugular venous distention. Positive hepatojugular reflux. SKIN: no suspicious lesions, warm and dry. HEART: no murmurs, regular rate and rhythm. LUNGS: clear to auscultation bilaterally. ABDOMEN: soft, nontender. EXTREMITIES: no edema. PERIPHERAL PULSES: equal. NEUROLOGIC: No gross deficits, AAO X 3 Objective Labs and Meds 01/09/23 02:38 01/09/23 02:38 Lab results: Laboratory Results - last 24 hr 01/09/23 01/09/23 01/09/23 02:16 02:38 02:38 WBC 8.4 RBC 3.56 L Hgb 10.4 L Hct 32.2 L MCV 90.4 MCH 29.2 MCHC 32.3 RDW 16.5 H Plt Count 193 MPV 11.1 Immature Gran % (Auto) 0.2 Neut % (Auto) 76.1 H Lymph % (Auto) 6.6 L [place] % (Auto) 13.0 H Eos % (Auto) 3.6 Baso % (Auto) 0.5 Lymph # (Auto) 0.6 L [place] # (Auto) 1.1 Eos # (Auto) 0.3 Baso # (Auto) 0.0 Abs Immat Gran (auto) 0.02 Absolute Neuts (auto) 6.4 Absolute Nucleated RBC 0.000 Nucleated RBC % (auto) 0.0 Sodium 140 Potassium 4.1 Chloride 103 Carbon Dioxide 25 Anion Gap 16 BUN 43 H Creatinine 2.09 H Estim Creat Clear Calc 27.8 Estimated GFR 31 Random Glucose 141 H Calcium 10.1 D Troponin I High Sens B-Natriuretic Peptide Specimen Comment DELAY 01/09/23 01/09/23 01/09/23 02:38 02:38 07:05 WBC RBC Hgb Hct MCV MCH MCHC RDW Plt Count MPV Immature Gran % (Auto) Neut % (Auto) Lymph % (Auto) [place] % (Auto) Eos % (Auto) Baso % (Auto) Lymph # (Auto) [place] # (Auto) Eos # (Auto) Baso # (Auto) Abs Immat Gran (auto) Absolute Neuts (auto) Absolute Nucleated RBC Nucleated RBC % (auto) Sodium Potassium Chloride Carbon Dioxide Anion Gap BUN Creatinine Estim Creat Clear Calc Estimated GFR Random Glucose Calcium Troponin I High Sens 20.1 21.2 B-Natriuretic Peptide 985 H Specimen Comment Imaging Radiologist's impression: Impressions Chest X-Ray 01/09/23 02:11 IMPRESSION: Mild diffuse interstitial prominence, similar to prior and which may reflect chronic changes versus subtle interstitial edema. Cardiac silhouette remains enlarged. Assessment and Plan (1) Acute exacerbation of congestive heart failure: Status: Acute Plan 82-year-old gentleman with known history of cardiomyopathy and congestive heart failure presenting with acute on chronic congestive heart failure. Etiology is unclear. On IV Bumex 1 mg twice a day. Diuresing okay right now. Adding hydralazine 25 mg 3 times a day and Isordil 5 mg 3 times a day. Hopefully with this we can modulate the afterload and preload as he is unable to tolerate ARB and Entresto. Monitor electrolytes closely. Chronic atrial fibrillation and has been home rivaroxaban. As he gets diuresed which should resume his carvedilol. For now can hold it. Thank you for allowing me to participate in the care of your patient. Please feel free to contact me if you have any questions. Time Spent With Patient Time: Total time managing care of this patient today ____ minutes. Procedures Date of Service Date of Service: 01/09/23
[2023-01-09] MEDS: Bumetanide 1 MG/4 ML VIAL IVPUSH (16:43)
[2023-01-09] MEDS: Atorvastatin Calcium 80 MG TABLET PO (18:45)
[2023-01-09] MEDS: hydrALAZINE HCl 25 MG TABLET PO (18:45)
[2023-01-09] MEDS: Rivaroxaban 15 MG TABLET PO (20:42)
--- NOTE | 2023-01-09 20:45 | PC.NURSE ---
pt bp 106/46, aware via [employer], Isordil held by physician - not given
--- NOTE | 2023-01-09 21:00 | PC.NURSE ---
pt bp 119/53, Glady text Dr Pierce , per provider hold med- 25 mg hydralazine
[2023-01-09] MEDS: allopurinoL 100 MG TABLET PO (22:35)
--- NOTE | 2023-01-09 22:49 | PC.NURSE ---
pharmacy to bring ropinirole
[2023-01-10] VITALS (8 sets, daily range): BP systolic 103–133; BP diastolic 46–68; PULSE 70–92; RESP 17–25; TEMP 35.9–36.7; O2SAT 92–100
[2023-01-10] MEDS: rOPINIRole HCL 0.25 MG TABLET PO ×3 (00:35→20:30)
[2023-01-10 04:56] LABS: Hemoglobin 9.9 g/dl (14.0-18.0); Mean Corpuscular HGB Conc 31.9 g/dl (31.0-36.0); Mean Corpuscular Volume 90.9 fL (80.0-98.0); Mean Platelet Volume 10.3 fL (9.4-12.4); Platelet Count 176 X10*3/uL (160-400); Red Blood Count 3.41 X10*6/uL (4.60-5.80); Red Cell Distribution Width 16.7 % (11.0-16.0); White Blood Count 7.1 X10*3/uL (4.8-10.8)
[2023-01-10 05:13] LABS: Anion Gap 12 (12-20); Blood Urea Nitrogen 43 mg/dL (9-16); Calcium 9.1 mg/dL (8.4-10.2); Carbon Dioxide 31 mmol/L (22-29); Chloride 100 mmol/L (96-108); Creatinine Clr Calc Pharmacy 30.2; Estimated Glomerular Filt Rate 34; Glucose Random 139 mg/dL (60-115); Potassium 3.9 mmol/L (3.3-5.1); Sodium 139 mmol/L (135-145)
--- NOTE | 2023-01-10 06:30 | PC.NURSE ---
while pt was moving in his bed IV got snagged on blood pressure cuff and caused minor bleeding IV line removed and replaced with a 20g to the L forearm
--- NOTE | 2023-01-10 07:32 | PC.NURSE ---
handoff report given to JARRELL Duffy
[2023-01-10] MEDS: hydrALAZINE HCl 25 MG TABLET PO ×3 (08:59→20:29)
[2023-01-10] MEDS: Bumetanide 1 MG/4 ML VIAL IVPUSH ×2 (08:59→17:20)
[2023-01-10] MEDS: Multivitamin TABLET 1 TAB PO (08:59)
[2023-01-10] MEDS: Colchicine 0.6 MG TABLET PO (08:59)
[2023-01-10] MEDS: Isosorbide Dinitrate 5 MG TABLET PO ×3 (08:59→17:21)
[2023-01-10] MEDS: Gabapentin 100 MG CAPSULE PO (12:57)
[2023-01-10] MEDS: Tamsulosin HCL 0.4 MG CAPSULE PO (12:57)
--- NOTE | 2023-01-10 13:55 | PC.NURSE ---
Attempted to call report to [facility]. RN unavailable.
--- NOTE | 2023-01-10 13:58 | HO.PM.IMPN ---
Subjective Subjective Date of Service: 01/10/23 Interval History: seen and examined this morning follow up for CHF reports improvement in dyspnea no leg edema Review of Systems Review of Systems: Yes all other systems are reviewed and are negative Constitutional Constitutional: Denies chills and Denies fever(s) ENT Ears, Nose, Mouth, and Throat: Denies dizziness Cardiovascular Cardiovascular: Denies chest pain, Denies palpitations and Reports dyspnea Respiratory Respiratory: Denies cough and Reports dyspnea Gastrointestinal Gastrointestinal: Denies abdominal pain, Denies nausea and Denies vomiting Neurologic Neurologic: Denies dizziness Endocrine Endocrine: Denies palpitations Physical Exam Vital Signs: Vital Signs: Last Vital Signs Temp 97.6 F 01/10/23 11:18 Pulse 70 01/10/23 13:54 Resp 25 H 01/10/23 13:54 BP 106/46 L 01/10/23 13:54 Pulse Ox 96 01/10/23 13:54 O2 Del Method Nasal Cannula 01/10/23 13:54 O2 Flow Rate 2 01/10/23 13:54 BMI result Body Mass Index 28.0 Const: General: cooperative, comfortable and no acute distress; No alert or awake Nutritional Appearance: average body habitus Orientation/consciousness: patient oriented x3 Resp: Other: diminished breath sounds; no rales Effort & Inspection: normal respiratory effort, able to speak in complete sentences, no respiratory distress and no use of accessory muscles Cardio: Rate: regular rate Heart sounds: S1 normal heart sound present and S2 normal heart sound present GI: Inspection: No distended Palpation (GI): Soft to palpation and nontender Neuro: General: patient oriented x3, moves all extremities and CN's II-XI intact bilaterally Extrem: General: Yes no pedal edema Objective Data Active Medications Acetaminophen (Acetaminophen 325 Mg Tablet) 650 mg PO Q6H PRN PRN Reason: Pain, Mild (Pain Scale 1-3) Allopurinol (Allopurinol 100 Mg Tablet) 100 mg PO BEDTIME [facility] Last Admin: 01/09/23 22:35 Dose: 100 mg Documented By: ALDA Atorvastatin Calcium (Atorvastatin Calcium 80 Mg Tablet) 80 mg PO DAILY@1800 [facility] Last Admin: 01/09/23 18:45 Dose: 80 mg Documented By: CELINE Bumetanide (Bumetanide 1 Mg/4 Ml Vial) 1 mg IVPUSH BID@0900,1700 [facility]; Protocol Last Admin: 01/10/23 08:59 Dose: 1 mg Documented By: RUBA Colchicine (Colchicine 0.6 Mg Tablet) 0.6 mg PO DAILY [facility] Last Admin: 01/10/23 08:59 Dose: 0.6 mg Documented By: RUBA Gabapentin (Gabapentin 100 Mg Capsule) 100 mg PO DAILY@1200 [facility] Last Admin: 01/10/23 12:57 Dose: 100 mg Documented By: RUBA Hydralazine HCl (Hydralazine Hcl 25 Mg Tablet) 25 mg PO TID [facility]; Protocol Last Admin: 01/10/23 08:59 Dose: 25 mg Documented By: RUBA Isosorbide Dinitrate (Isosorbide Dinitrate 5 Mg Tablet) 5 mg PO TID@0800,1300,1800 [facility]; Protocol Last Admin: 01/10/23 13:37 Dose: 5 mg Documented By: RUBA Meclizine HCl (Meclizine Hcl 25 Mg Tablet) 25 mg PO TID PRN PRN Reason: Dizziness Multivitamins/Vitamin C (Multivitamin Tablet) 1 tab PO DAILY [facility] Last Admin: 01/10/23 08:59 Dose: 1 tab Documented By: RUBA Ondansetron HCl (Ondansetron Hcl 4 Mg/2 Ml Vial) 4 mg IVPUSH Q8H PRN PRN Reason: Nausea and Vomiting Pharmacy Consult (Consult Rx Perform Med Rec) 1 each MISCELLANE ONCE PRN PRN Reason: Consult order Rivaroxaban (Rivaroxaban 15 Mg Tablet) 15 mg PO DAILY@1800 [facility] Last Admin: 01/09/23 20:42 Dose: 15 mg Documented By: ALDA Ropinirole HCl (Ropinirole Hcl 0.25 Mg Tablet) 0.25 mg PO BID [facility] Last Admin: 01/10/23 08:59 Dose: 0.25 mg Documented By: RUBA Sodium Chloride (0.9 % Sodium Chloride Flush 3 Ml Syringe) 3 ml IVFLUSH QSHIFT [facility] Last Admin: 01/10/23 08:59 Dose: Not Given Documented By: RUBA Non-Admin Reason: Med Not Available Tamsulosin HCl (Tamsulosin Hcl 0.4 Mg Capsule) 0.4 mg PO DAILY@1200 [facility] Last Admin: 01/10/23 12:57 Dose: 0.4 mg Documented By: RUBA Labs 01/10/23 04:45 01/10/23 04:45 Labs: Laboratory Results - last 24 hr 01/10/23 01/10/23 04:45 04:45 MCV 90.9 MCH 29.0 MCHC 31.9 RDW 16.7 H Plt Count 176 MPV 10.3 Absolute Nucleated RBC 0.000 Nucleated RBC % (auto) 0.0 Anion Gap 12 Estim Creat Clear Calc 30.2 Estimated GFR 34 Random Glucose 139 H Calcium 9.1 D Assessment and Plan (1) Acute exacerbation of congestive heart failure: Status: Acute (2) Chronic atrial fibrillation: Status: Acute Plan This is an 82-year-old male with a complex cardiac history including HFrEF, AFib on Coumadin, biventricular ICD, diabetes, hypertension who presents to the hospital with shortness of breath. His workup in the ED is consistent with acute CHF. He has had recent adjustments to his biventricular ICD. 1. Acute on chronic HFrEF exacerbation Given 2 mg of IV Bumex in the ED, will continue 1 mg IV twice daily Intake and output - negative about 1L since admission, unclear if Is&Os accurate Daily weights , Low-sodium diet Given recent adjustments to his biventricular ICD, question if his CHF is related to this cardiology following - started on hydralazine and isordil as uable to tolerate ARB/entresto 2. Hypoxia likely due to #1 continue supplemental oxygen, wean as tolerated 3. CKD stage 4 SCr mildly elevated above baseline, trending down slightly monitor closely 4. Chronic A. Fib hold coreg today while being diursed continue xarelto 5. DM hold oral POC and sliding scale Full Code DVT pptx, Xarelto attending - dr. Monroy Requires ongoing inpatient hospitalization for management of CHF requiring IV diuresis Time Spent With Patient Time: Total time managing care of this patient today ____ minutes. Quality Stroke Does the patient have a stroke diagnosis?: No VTE Prior VTE?: No VTE Risk Level:: Medical - moderate - high VTE Device Contraindication: Treatment Not Indicated VTE Drug Contraindication: N/A - Med Ordered
--- NOTE | 2023-01-10 14:12 | PC.NURSE ---
Report to jorje Mace
--- NOTE | 2023-01-10 16:25 | PM.PNCARD ---
Subjective Subjective Date of Service: 01/10/23 Interval history: Seen examined at bedside. Feeling better. Physical Exam Vital Signs: Last Vital Signs Temp 97.6 F 01/10/23 11:18 Pulse 70 01/10/23 13:54 Resp 25 H 01/10/23 13:54 BP 106/46 L 01/10/23 13:54 Pulse Ox 96 01/10/23 13:54 O2 Del Method Nasal Cannula 01/10/23 13:54 O2 Flow Rate 2 01/10/23 13:54 BMI result Body Mass Index 28.0 GENERAL APPEARANCE: in no acute distress, pleasant. NECK: no carotid bruit, + jugular venous distention. Positive hepatojugular reflux. SKIN: no suspicious lesions, warm and dry. HEART: no murmurs, regular rate and rhythm. LUNGS: clear to auscultation bilaterally. ABDOMEN: soft, nontender. EXTREMITIES: no edema. PERIPHERAL PULSES: equal. NEUROLOGIC: No gross deficits, AAO X 3 Objective Labs and Meds 01/10/23 04:45 01/10/23 04:45 Lab results: Laboratory Results - last 24 hr 01/10/23 01/10/23 04:45 04:45 WBC 7.1 RBC 3.41 L Hgb 9.9 L Hct 31.0 L MCV 90.9 MCH 29.0 MCHC 31.9 RDW 16.7 H Plt Count 176 MPV 10.3 Absolute Nucleated RBC 0.000 Nucleated RBC % (auto) 0.0 Sodium 139 Potassium 3.9 Chloride 100 Carbon Dioxide 31 H Anion Gap 12 BUN 43 H Creatinine 1.92 H Estim Creat Clear Calc 30.2 Estimated GFR 34 Random Glucose 139 H Calcium 9.1 D Progress Note: A&P Assessment and plan (1) Chronic atrial fibrillation: Status: Acute (2) Acute exacerbation of congestive heart failure: Status: Acute Plan [age] year gentleman with acute on chronic congestive heart failure. He was significantly volume overloaded and is on IV Bumex right now. Continue IV Bumex today. Can be changed to oral Bumex 1 mg twice a day from tomorrow. Continue hydralazine and nitrate. If his blood pressure allows then hydralazine should be titrated further. Thank you for allowing me to participate in the care of your patient. Please feel free to contact me if you have any questions. Time Spent With Patient Time: Total time managing care of this patient today ____ minutes. Progress Note: Quality Stroke Does the patient have a stroke diagnosis?: No Procedures Date of Service Date of Service: 01/10/23
[2023-01-10] MEDS: Rivaroxaban 15 MG TABLET PO (17:21)
[2023-01-10] MEDS: Atorvastatin Calcium 80 MG TABLET PO (17:21)
[2023-01-10] MEDS: allopurinoL 100 MG TABLET PO (20:29)
[2023-01-10] MEDS: 0.9 % Sodium Chloride Flush 3 ML SYRINGE IVFLUSH (20:30)
[2023-01-11] VITALS (11 sets, daily range): BP systolic 103–126; BP diastolic 51–60; PULSE 69–84; RESP 17–20; TEMP 35.9–36.6; O2SAT 82–100
[2023-01-11 06:10] LABS: Anion Gap 13 (12-20); Blood Urea Nitrogen 52 mg/dL (9-16); Calcium 8.8 mg/dL (8.4-10.2); Carbon Dioxide 29 mmol/L (22-29); Chloride 99 mmol/L (96-108); Creatinine Clr Calc Pharmacy 26.6; Estimated Glomerular Filt Rate 29; Glucose Random 135 mg/dL (60-115); Potassium 4.2 mmol/L (3.3-5.1); Sodium 137 mmol/L (135-145)
[2023-01-11] MEDS: rOPINIRole HCL 0.25 MG TABLET PO ×2 (08:23→20:47)
[2023-01-11] MEDS: hydrALAZINE HCl 25 MG TABLET PO ×2 (08:23→15:41)
[2023-01-11] MEDS: Colchicine 0.6 MG TABLET PO (08:23)
[2023-01-11] MEDS: Isosorbide Dinitrate 5 MG TABLET PO (08:23)
[2023-01-11] MEDS: Multivitamin TABLET 1 TAB PO (08:23)
[2023-01-11] MEDS: 0.9 % Sodium Chloride Flush 3 ML SYRINGE IVFLUSH ×3 (08:24→20:55)
[2023-01-11] MEDS: Gabapentin 100 MG CAPSULE PO (11:16)
[2023-01-11] MEDS: Tamsulosin HCL 0.4 MG CAPSULE PO (11:17)
--- NOTE | 2023-01-11 13:46 | HO.PM.IMPN ---
Subjective Subjective Date of Service: 01/11/23 Interval History: seen and examined this morning follow up for CHF had episode of hypoxia overnight while trying to lay flat and again this morning o2 sat dropped to 80s denies sob while sitting up/at rest. denies chest pain Review of Systems Review of Systems: Yes all other systems are reviewed and are negative Constitutional Constitutional: Denies chills and Denies fever(s) ENT Ears, Nose, Mouth, and Throat: Denies dizziness Cardiovascular Cardiovascular: Denies chest pain, Denies palpitations, Denies dyspnea and Reports orthopnea Respiratory Respiratory: Denies cough and Denies dyspnea Neurologic Neurologic: Denies dizziness Endocrine Endocrine: Denies palpitations Physical Exam Vital Signs: Vital Signs: Last Vital Signs Temp 97.5 F 01/11/23 12:41 Pulse 72 01/11/23 12:41 Resp 20 01/11/23 12:41 BP 122/60 01/11/23 12:41 Pulse Ox 100 01/11/23 12:41 O2 Del Method Nasal Cannula 01/11/23 12:41 O2 Flow Rate 2 01/11/23 12:41 BMI result Body Mass Index 28.0 Const: General: cooperative, comfortable and no acute distress; No alert or awake Nutritional Appearance: average body habitus Orientation/consciousness: patient oriented x3 Resp: Other: diminished breath sounds; no rales Effort & Inspection: normal respiratory effort, able to speak in complete sentences, no respiratory distress and no use of accessory muscles Cardio: Rate: regular rate Heart sounds: S1 normal heart sound present and S2 normal heart sound present GI: Inspection: No distended Palpation (GI): Soft to palpation and nontender Neuro: General: patient oriented x3, moves all extremities and CN's II-XI intact bilaterally Extrem: General: Yes no pedal edema Objective Data Active Medications Acetaminophen (Acetaminophen 325 Mg Tablet) 650 mg PO Q6H PRN PRN Reason: Pain, Mild (Pain Scale 1-3) Allopurinol (Allopurinol 100 Mg Tablet) 100 mg PO BEDTIME [facility] Last Admin: 01/10/23 20:29 Dose: 100 mg Documented By: MARIUM Atorvastatin Calcium (Atorvastatin Calcium 80 Mg Tablet) 80 mg PO DAILY@1800 [facility] Last Admin: 01/10/23 17:21 Dose: 80 mg Documented By: PATEL Bumetanide (Bumetanide 1 Mg/4 Ml Vial) 2 mg IVPUSH BID@0900,1700 [facility]; Protocol Colchicine (Colchicine 0.6 Mg Tablet) 0.6 mg PO DAILY [facility] Last Admin: 01/11/23 08:23 Dose: 0.6 mg Documented By: NICOLAS Gabapentin (Gabapentin 100 Mg Capsule) 100 mg PO DAILY@1200 [facility] Last Admin: 01/11/23 11:16 Dose: 100 mg Documented By: NICOLAS Hydralazine HCl (Hydralazine Hcl 25 Mg Tablet) 25 mg PO TID [facility]; Protocol Last Admin: 01/11/23 08:23 Dose: 25 mg Documented By: NICOLAS Isosorbide Dinitrate (Isosorbide Dinitrate 10 Mg Tablet) 10 mg PO TID@0800,1300,1800 [facility]; Protocol Meclizine HCl (Meclizine Hcl 25 Mg Tablet) 25 mg PO TID PRN PRN Reason: Dizziness Multivitamins/Vitamin C (Multivitamin Tablet) 1 tab PO DAILY [facility] Last Admin: 01/11/23 08:23 Dose: 1 tab Documented By: NICOLAS Ondansetron HCl (Ondansetron Hcl 4 Mg/2 Ml Vial) 4 mg IVPUSH Q8H PRN PRN Reason: Nausea and Vomiting Pharmacy Consult (Consult Rx Perform Med Rec) 1 each MISCELLANE ONCE PRN PRN Reason: Consult order Rivaroxaban (Rivaroxaban 15 Mg Tablet) 15 mg PO DAILY@1800 [facility] Last Admin: 01/10/23 17:21 Dose: 15 mg Documented By: PATEL Ropinirole HCl (Ropinirole Hcl 0.25 Mg Tablet) 0.25 mg PO BID [facility] Last Admin: 01/11/23 08:23 Dose: 0.25 mg Documented By: NICOLAS Simethicone (Simethicone 80 Mg Tab.Chew) 80 mg PO QIDWMHS PRN PRN Reason: Gas Sodium Chloride (0.9 % Sodium Chloride Flush 3 Ml Syringe) 3 ml IVFLUSH QSHIFT [facility] Last Admin: 01/11/23 08:24 Dose: 3 ml Documented By: NICOLAS Tamsulosin HCl (Tamsulosin Hcl 0.4 Mg Capsule) 0.4 mg PO DAILY@1200 [facility] Last Admin: 01/11/23 11:17 Dose: 0.4 mg Documented By: NICOLAS Labs 01/10/23 04:45 01/11/23 05:13 Labs: Laboratory Results - last 24 hr 01/11/23 05:13 Anion Gap 13 Estim Creat Clear Calc 26.6 Estimated GFR 29 Random Glucose 135 H Calcium 8.8 Assessment and Plan (1) Acute exacerbation of congestive heart failure: Status: Acute (2) Chronic atrial fibrillation: Status: Acute Plan This is an 82-year-old male with a complex cardiac history including HFrEF, AFib on Coumadin, biventricular ICD, diabetes, hypertension who presents to the hospital with shortness of breath. His workup in the ED is consistent with acute CHF. He has had recent adjustments to his biventricular ICD. 1. Acute on chronic HFrEF exacerbation EF 20-25% - has biventricular ICD persistent hypoxia, will increase dose of bumex to 2 mg bid Is&Os not accurate Daily weights , Low-sodium diet cardiology following - started on hydralazine and isordil as uable to tolerate ARB/entresto 2. acute respiratory failure with Hypoxia due to CHF exacerbation continue supplemental oxygen, wean as tolerated 3. CKD stage 4 SCr mildly elevated above baseline likely related to cardiorenal from CHF monitor closely while on diuretics 4. Chronic A. Fib hold coreg for now per cardiology continue xarelto 5. DM hold oral POC and sliding scale Full Code DVT pptx, Xarelto attending - dr. Monroy Requires ongoing inpatient hospitalization for management of CHF requiring IV diuresis Time Spent With Patient Time: Total time managing care of this patient today ____ minutes. Quality Stroke Does the patient have a stroke diagnosis?: No VTE Prior VTE?: No VTE Risk Level:: Medical - moderate - high VTE Device Contraindication: Treatment Not Indicated VTE Drug Contraindication: N/A - Med Ordered
[2023-01-11] MEDS: Isosorbide Dinitrate 10 MG TABLET PO ×2 (13:47→17:44)
--- NOTE | 2023-01-11 13:57 | PM.PNCARD ---
Subjective Subjective Date of Service: 01/11/23 Interval history: Seen examined at bedside. Saying that he had some breathing problems overnight and is back oxygen. Physical Exam Vital Signs: Last Vital Signs Temp 97.5 F 01/11/23 12:41 Pulse 72 01/11/23 12:41 Resp 20 01/11/23 12:41 BP 122/60 01/11/23 12:41 Pulse Ox 100 01/11/23 12:41 O2 Del Method Nasal Cannula 01/11/23 12:41 O2 Flow Rate 2 01/11/23 12:41 BMI result Body Mass Index 28.0 GENERAL APPEARANCE: in no acute distress, pleasant. NECK: no carotid bruit, + jugular venous distention. Positive hepatojugular reflux. SKIN: no suspicious lesions, warm and dry. HEART: Systolic murmur apex, regular rate and rhythm. LUNGS: clear to auscultation bilaterally. ABDOMEN: soft, nontender. EXTREMITIES: no edema. PERIPHERAL PULSES: equal. NEUROLOGIC: No gross deficits, AAO X 3 Objective Labs and Meds 01/10/23 04:45 01/11/23 05:13 Lab results: Laboratory Results - last 24 hr 01/11/23 05:13 Sodium 137 Potassium 4.2 Chloride 99 Carbon Dioxide 29 Anion Gap 13 BUN 52 H Creatinine 2.18 H Estim Creat Clear Calc 26.6 Estimated GFR 29 Random Glucose 135 H Calcium 8.8 Progress Note: A&P Assessment and plan (1) Acute exacerbation of congestive heart failure: Status: Acute Plan 82-year-old gentleman with cardiomyopathy acute on chronic systolic heart failure. Previously had severely reduced ejection fraction based echocardiography 2021. Bumex 2 mg IV b.i.d.. Still overloaded. Continue hydralazine and nitrate. Continue to hold the carvedilol. Thank you for allowing me to participate in the care of your patient. Please feel free to contact me if you have any questions. Time Spent With Patient Time: Total time managing care of this patient today ____ minutes. Progress Note: Quality Stroke Does the patient have a stroke diagnosis?: No Procedures Date of Service Date of Service: 01/11/23
[2023-01-11] MEDS: Bumetanide 1 MG/4 ML VIAL 2 MG IVPUSH ×2 (13:59→20:53)
[2023-01-11 16:04] LABS: Glucose, Whole Blood 175 mg/dL (60-115)
--- NOTE | 2023-01-11 16:04 | MHC.CM.PN ---
/IMM 01/11/23, EMR REVIEWED, PT ADMITTED W/SOB, CM MET W/PT WHO REPORTS HIS TWO SONS LIVE W/HIM, HE INDEO W/ALL CAER, DENIES USE OF DME/SERVICES AND DOES NOT ANTIC NEED FOR SERVICES ON D/C. PT VERIFIES PCP ON FILE IS CORRECT, FULLY VACCINATED FOR COVID 19 AND HCP IS PT'S TWO SONS AND COPY ON FILE FROM PREVIOUS ADMISSION.
[2023-01-11] MEDS: Insulin Lispro 100 UNIT/ML 3 ML VIAL SUBCUT ×2 (16:44→20:49)
[2023-01-11] MEDS: Atorvastatin Calcium 80 MG TABLET PO (17:43)
[2023-01-11] MEDS: Rivaroxaban 15 MG TABLET PO (17:43)
--- NOTE | 2023-01-11 17:51 | PC.NURSE ---
Pt ambulated in hallway on room air, independently. upon returning sats on room air- 82% Pt sat in recliner, o2 replaced at 2L NC- sats now 95%
[2023-01-11 19:24] LABS: Glucose, Whole Blood 158 mg/dL (60-115)
[2023-01-11] MEDS: allopurinoL 100 MG TABLET PO (20:47)
[2023-01-11] MEDS: Throat Lozenge, Medicated LOZENGE 1 LOZENGE MUCOUS MEM (22:19)
[2023-01-12] VITALS (9 sets, daily range): BP systolic 113–162; BP diastolic 55–70; PULSE 70–93; RESP 17–20; TEMP 36.3–36.8; O2SAT 94–100
--- NOTE | 2023-01-12 00:39 | PC.NURSE ---
Pt was seen sitting on a recliner, BP 103/55 H 84, pt denies any lightheadedness, chest pain nor dizziness, pt claimed that his usual BP is on the 120s/, Dr. Pierce was notified as pt is getting scheduled Hydralazine po and Bumex IV, Dr. Pierce held po Hydralazine. Pt also c/o sorethroat, requested for ice cream but no relief, Dr. Pierce was made aware, Cepacol lozenges ordered, and given to pt with good effect.
[2023-01-12 05:58] LABS: Anion Gap 12 (12-20); Blood Urea Nitrogen 55 mg/dL (9-16); Calcium 8.7 mg/dL (8.4-10.2); Carbon Dioxide 31 mmol/L (22-29); Chloride 98 mmol/L (96-108); Creatinine Clr Calc Pharmacy 27.8; Estimated Glomerular Filt Rate 31; Glucose Random 141 mg/dL (60-115); Potassium 3.8 mmol/L (3.3-5.1); Sodium 137 mmol/L (135-145)
[2023-01-12 07:47] LABS: Glucose, Whole Blood 174 mg/dL (60-115)
[2023-01-12] MEDS: Insulin Lispro 100 UNIT/ML 3 ML VIAL SUBCUT ×3 (08:14→20:55)
[2023-01-12] MEDS: hydrALAZINE HCl 25 MG TABLET PO (08:16)
[2023-01-12] MEDS: Multivitamin TABLET 1 TAB PO (08:16)
[2023-01-12] MEDS: rOPINIRole HCL 0.25 MG TABLET PO ×2 (08:16→20:30)
[2023-01-12] MEDS: Isosorbide Dinitrate 10 MG TABLET PO ×3 (08:16→17:05)
[2023-01-12] MEDS: Colchicine 0.6 MG TABLET PO (08:16)
[2023-01-12] MEDS: Bumetanide 1 MG/4 ML VIAL 2 MG IVPUSH (08:16)
[2023-01-12] MEDS: 0.9 % Sodium Chloride Flush 3 ML SYRINGE IVFLUSH (08:17)
[2023-01-12] MEDS: Throat Lozenge, Medicated LOZENGE 1 LOZENGE MUCOUS MEM (08:49)
[2023-01-12 11:27] LABS: Glucose, Whole Blood 205 mg/dL (60-115)
[2023-01-12] MEDS: Gabapentin 100 MG CAPSULE PO (11:54)
[2023-01-12] MEDS: Tamsulosin HCL 0.4 MG CAPSULE PO (11:54)
--- NOTE | 2023-01-12 12:37 | PM.PNCARD ---
Subjective Subjective Date of Service: 01/12/23 Interval history: Seen and examined at bedside. Improving. Still overloaded though. Physical Exam Vital Signs: Last Vital Signs Temp 97.5 F 01/12/23 12:00 Pulse 78 01/12/23 12:00 Resp 18 01/12/23 12:00 BP 131/61 01/12/23 12:00 Pulse Ox 94 01/12/23 12:00 O2 Del Method Room Air 01/12/23 12:00 O2 Flow Rate 2 01/12/23 07:38 BMI result Body Mass Index 28.0 GENERAL APPEARANCE: in no acute distress, pleasant. NECK: no carotid bruit, + jugular venous distention. Positive hepatojugular reflux. SKIN: no suspicious lesions, warm and dry. HEART: Systolic murmur apex, regular rate and rhythm. LUNGS: clear to auscultation bilaterally. ABDOMEN: soft, nontender. EXTREMITIES: no edema. PERIPHERAL PULSES: equal. NEUROLOGIC: No gross deficits, AAO X 3 Objective Labs and Meds 01/10/23 04:45 01/12/23 05:15 Lab results: Laboratory Results - last 24 hr 01/11/23 01/11/23 01/12/23 15:57 18:59 05:15 Sodium 137 Potassium 3.8 Chloride 98 Carbon Dioxide 31 H Anion Gap 12 BUN 55 H Creatinine 2.09 H Estim Creat Clear Calc 27.8 Estimated GFR 31 POC Glucose 175 H 158 H Random Glucose 141 H Calcium 8.7 01/12/23 01/12/23 07:43 11:20 Sodium Potassium Chloride Carbon Dioxide Anion Gap BUN Creatinine Estim Creat Clear Calc Estimated GFR POC Glucose 174 H 205 H Random Glucose Calcium Progress Note: A&P Assessment and plan (1) Acute exacerbation of congestive heart failure: Status: Acute Plan 82-year- old presenting with acute on chronic congestive heart failure. He has known history of cardiomyopathy. On Bumex IV at this point. Improving slowly. Increase the hydralazine to 50 mg 3 times a day. Continue Isordil at the same dose. As he becomes euvolemic we will reintroduce carvedilol at a low dose. Hopefully will be able to be transitioned to oral diuretics the next day or 2. Time Spent With Patient Time: Total time managing care of this patient today ____ minutes. Progress Note: Quality Stroke Does the patient have a stroke diagnosis?: No Procedures Date of Service Date of Service: 01/12/23
--- NOTE | 2023-01-12 12:54 | P.PNIM_ITS ---
Subjective Subjective Date of Service: 01/12/23 Interval History: seen and examined this morning follow up for CHF was able to lay a little more flat overnight denies sob Review of Systems Review of Systems: Yes all other systems are reviewed and are negative Constitutional Constitutional: Denies chills and Denies fever(s) ENT Ears, Nose, Mouth, and Throat: Denies dizziness Cardiovascular Cardiovascular: Denies chest pain, Denies palpitations and Denies dyspnea Respiratory Respiratory: Denies cough and Denies dyspnea Gastrointestinal Gastrointestinal: Denies abdominal pain Neurologic Neurologic: Denies dizziness Endocrine Endocrine: Denies palpitations Physical Exam Vital Signs: Vital Signs: Last Vital Signs Temp 97.5 F 01/12/23 12:00 Pulse 78 01/12/23 12:00 Resp 18 01/12/23 12:00 BP 131/61 01/12/23 12:00 Pulse Ox 94 01/12/23 12:40 O2 Del Method Room Air 01/12/23 12:40 O2 Flow Rate 1 01/12/23 08:45 BMI result Body Mass Index 28.0 Const: General: cooperative, comfortable and no acute distress; No alert or awake Nutritional Appearance: average body habitus Orientation/consciousness: patient oriented x3 Resp: Other: diminished breath sounds; no rales Effort & Inspection: normal respiratory effort, able to speak in complete sentences, no respiratory distress and no use of accessory muscles Cardio: Jugular venous distension: JVD Rate: regular rate Heart sounds: S1 normal heart sound present and S2 normal heart sound present GI: Inspection: No distended Palpation (GI): Soft to palpation and nontender Neuro: General: patient oriented x3, moves all extremities and CN's II-XI in tact bilaterally Extrem: General: Yes no pedal edema Objective Data Active Medications Acetaminophen (Acetaminophen 325 Mg Tablet) 650 mg PO Q6H PRN PRN Reason: Pain, Mild (Pain Scale 1-3) Allopurinol (Allopurinol 100 Mg Tablet) 100 mg PO BEDTIME [facility] Last Admin: 01/11/23 20:47 Dose: 100 mg Documented By: PAULA Atorvastatin Calcium (Atorvastatin Calcium 80 Mg Tablet) 80 mg PO DAILY@1800 [facility] Last Admin: 01/11/23 17:43 Dose: 80 mg Documented By: NICOLAS Benzocaine (Throat Lozenge, Medicated Lozenge) 1 lozenge MUCOUS MEM Q2H PRN PRN Reason: Sore Throat Last Admin: 01/12/23 08:49 Dose: 1 lozenge Documented By: AINSLEY Bumetanide (Bumetanide 1 Mg/4 Ml Vial) 2 mg IVPUSH BID@0900,1700 [facility]; Protocol Last Admin: 01/12/23 08:16 Dose: 2 mg Documented By: AINSLEY Colchicine (Colchicine 0.6 Mg Tablet) 0.6 mg PO DAILY [facility] Last Admin: 01/12/23 08:16 Dose: 0.6 mg Documented By: AINSLEY Dextrose (Dextrose 50 % 25 Gm/50 Ml Syringe) 25 gm IVPUSH Q15M PRN; Protocol PRN Reason: per Hypoglycemia Standing Ord. Gabapentin (Gabapentin 100 Mg Capsule) 100 mg PO DAILY@1200 [facility] Last Admin: 01/12/23 11:54 Dose: 100 mg Documented By: AINSLEY Glucose (Glucose Gel 15 Gm Gel..Gram.) 15 gm PO Q15M PRN; Protocol PRN Reason: per Hypoglycemia Standing Ord. Hydralazine HCl (Hydralazine Hcl 25 Mg Tablet) 25 mg PO TID [facility]; Protocol Last Admin: 01/12/23 08:16 Dose: 25 mg Documented By: AINSLEY Insulin Human Lispro (Insulin Lispro 100 Unit/Ml 3 Ml Vial) 0 unit SUBCUT QIDACHS [facility]; Protocol Last Admin: 01/12/23 11:53 Dose: 4 unit Documented By: AINSLEY Isosorbide Dinitrate (Isosorbide Dinitrate 10 Mg Tablet) 10 mg PO TID@0800,1300 ,1800 [facility]; Protocol Last Admin: 01/12/23 08:16 Dose: 10 mg Documented By: AINSLEY Meclizine HCl (Meclizine Hcl 25 Mg Tablet) 25 mg PO TID PRN PRN Reason: Dizziness Multivitamins/Vitamin C (Multivitamin Tablet) 1 tab PO DAILY [facility] Last Admin: 01/12/23 08:16 Dose: 1 tab Documented By: AINSLEY Ondansetron HCl (Ondansetron Hcl 4 Mg/2 Ml Vial) 4 mg IVPUSH Q8H PRN PRN Reason: Nausea and Vomiting Pharmacy Consult (Consult Rx Perform Med Rec) 1 each MISCELLANE ONCE PRN PRN Reason: Consult order Rivaroxaban (Rivaroxaban 15 Mg Tablet) 15 mg PO DAILY@1800 [facility] Last Admin: 01/11/23 17:43 Dose: 15 mg Documented By: NICOLAS Ropinirole HCl (Ropinirole Hcl 0.25 Mg Tablet) 0.25 mg PO BID [facility] Last Admin: 01/12/23 08:16 Dose: 0.25 mg Documented By: AINSLEY Simethicone (Simethicone 80 Mg Tab.Chew) 80 mg PO QIDWMHS PRN PRN Reason: Gas Sodium Chloride (0.9 % Sodium Chloride Flush 3 Ml Syringe) 3 ml IVFLUSH QSHIFT [facility] Last Admin: 01/12/23 08:17 Dose: 3 ml Documented By: AINSLEY Tamsulosin HCl (Tamsulosin Hcl 0.4 Mg Capsule) 0.4 mg PO DAILY@1200 [facility] Last Admin: 01/12/23 11:54 Dose: 0.4 mg Documented By: AINSLEY Labs 01/10/23 04:45 01/12/23 05:15 Labs: Laboratory Results - last 24 hr 01/11/23 01/11/23 01/12/23 15:57 18:59 05:15 Anion Gap 12 Estim Creat Clear Calc 27.8 Estimated GFR 31 POC Glucose 175 H 158 H Random Glucose 141 H Calcium 8.7 01/12/23 01/12/23 07:43 11:20 Anion Gap Estim Creat Clear Calc Estimated GFR POC Glucose 174 H 205 H Random Glucose Calcium Assessment and Plan (1) Acute exacerbation of congestive heart failure: Status: Acute (2) Chronic atrial fibrillation: Status: Acute Plan This is an 82-year-old male with a complex cardiac history including HFrEF, AFib on Coumadin, biventricular ICD, diabetes, hypertension who presents to the hospital with shortness of breath. His workup in the ED is consistent with acute CHF. He has had recent adjustments to his biventricular ICD. 1. Acute on chronic HFrEF exacerbation EF 20-25% - has biventricular ICD continues to appear fluid overloaded continue increased dose of bumex - 2 mg IV bid increase UO since bumex dose increased Daily weights , Low-sodium diet, follow Is&Os cardiology following - started on hydralazine and isordil as uable to tolerate ARB/entresto 2. acute respiratory failure with Hypoxia due to CHF exacerbation able to be weaned to room air 3. CKD stage 4 SCr trending down slightly to 2.09, remains near baseline monitor closely while on diuretics 4. Chronic A. Fib hold coreg for now per cardiology continue xarelto 5. DM hold oral POC and sliding scale Full Code DVT pptx, Xarelto attending - dr. Monroy Requires ongoing inpatient hospitalization for management of CHF requiring IV diuresis Time Spent With Patient Time: Total time managing care of this patient today ____ minutes. Quality Stroke Does the patient have a stroke diagnosis?: No VTE Prior VTE?: No VTE Risk Level:: Medical - moderate - high VTE Device Contraindication: Treatment Not Indicated VTE Drug Contraindication: N/A - Med Ordered
--- NOTE | 2023-01-12 13:55 | MHC.CM.PN ---
per rounds pt may bve dcd tomorrow dc plan reman is home
[2023-01-12] MEDS: hydrALAZINE HCl 50 MG TABLET PO ×2 (14:26→20:30)
[2023-01-12 16:18] LABS: Glucose, Whole Blood 127 mg/dL (60-115)
[2023-01-12] MEDS: Rivaroxaban 15 MG TABLET PO (17:05)
[2023-01-12] MEDS: Atorvastatin Calcium 80 MG TABLET PO (17:05)
[2023-01-12] MEDS: allopurinoL 100 MG TABLET PO (20:30)
[2023-01-12 20:35] LABS: Glucose, Whole Blood 178 mg/dL (60-115)
[2023-01-13] MEDS: 0.9 % Sodium Chloride Flush 3 ML SYRINGE IVFLUSH ×3 (00:07→14:26)
[2023-01-13 03:35] VITALS: BP 130/61; PULSE 65; RESP 17; TEMP 36.6; O2SAT 95
[2023-01-13 06:00] VITALS: BMI 27.5
[2023-01-13 07:03] VITALS: BP 120/59; PULSE 71; RESP 20; TEMP 36.2; O2SAT 95
[2023-01-13 07:43] LABS: Glucose, Whole Blood 139 mg/dL (60-115)
--- NOTE | 2023-01-13 08:01 | P.PNIM_ITS ---
Subjective Subjective Date of Service: 01/13/23 Interval History: seen and examined this morning follow up for CHF No sob sitting up in a chair Review of Systems Review of Systems: Yes all other systems are reviewed and are negative Constitutional Constitutional: Denies chills and Denies fever(s) ENT Ears, Nose, Mouth, and Throat: Denies dizziness Cardiovascular Cardiovascular: Denies chest pain, Denies palpitations and Denies dyspnea Respiratory Respiratory: Denies cough and Denies dyspnea Gastrointestinal Gastrointestinal: Denies abdominal pain Neurologic Neurologic: Denies dizziness Endocrine Endocrine: Denies palpitations Physical Exam Vital Signs: Vital Signs: Last Vital Signs Temp 97.1 F 01/13/23 07:03 Pulse 71 01/13/23 07:03 Resp 20 01/13/23 07:03 BP 120/59 L 01/13/23 07:03 Pulse Ox 95 01/13/23 07:03 O2 Del Method Room Air 01/13/23 07:03 O2 Flow Rate 1 01/12/23 08:45 BMI result Body Mass Index 27.5 Appearing in no acute distress LSCTA heart regular rate rhythm, clear S1, S2 positive bowel sounds, abdomen is soft, nontender neuro patient is alert x3, no focal deficits Objective Data Active Medications Acetaminophen (Acetaminophen 325 Mg Tablet) 650 mg PO Q6H PRN PRN Reason: Pain, Mild (Pain Scale 1-3) Allopurinol (Allopurinol 100 Mg Tablet) 100 mg PO BEDTIME COUNT INCLUDES THE [facility] Last Admin: 01/12/23 20:30 Dose: 100 mg Documented By: LEAH Atorvastatin Calcium (Atorvastatin Calcium 80 Mg Tablet) 80 mg PO DAILY@1800 COUNT INCLUDES THE [facility] Last Admin: 01/12/23 17:05 Dose: 80 mg Documented By: NINI Benzocaine (Throat Lozenge, Medicated Lozenge) 1 lozenge MUCOUS MEM Q2H PRN PRN Reason: Sore Throat Last Admin: 01/12/23 08:49 Dose: 1 lozenge Documented By: AINSLEY Bumetanide (Bumetanide 1 Mg/4 Ml Vial) 2 mg IVPUSH BID@0900,1700 QUETA; Protocol Last Admin: 01/12/23 08:16 Dose: 2 mg Documented By: AINSLEY Colchicine (Colchicine 0.6 Mg Tablet) 0.6 mg PO DAILY COUNT INCLUDES THE [facility] Last Admin: 01/12/23 08:16 Dose: 0.6 mg Documented By: AINSLEY Dextrose (Dextrose 50 % 25 Gm/50 Ml Syringe) 25 gm IVPUSH Q15M PRN; Protocol PRN Reason: per Hypoglycemia Standing Ord. Gabapentin (Gabapentin 100 Mg Capsule) 100 mg PO DAILY@1200 QUETA Last Admin: 01/12/23 11:54 Dose: 100 mg Documented By: AINSLEY Glucose (Glucose Gel 15 Gm Gel..Gram.) 15 gm PO Q15M PRN; Protocol PRN Reason: per Hypoglycemia Standing Ord. Hydralazine HCl (Hydralazine Hcl 50 Mg Tablet) 50 mg PO TID COUNT INCLUDES THE [facility]; Protocol Last Admin: 01/12/23 20:30 Dose: 50 mg Documented By: LEAH Insulin Human Lispro (Insulin Lispro 100 Unit/Ml 3 Ml Vial) 0 unit SUBCUT QIDACHS COUNT INCLUDES THE [facility]; Protocol Last Admin: 01/13/23 07:44 Dose: Not Given Documented By: DEION Non-Admin Reason: No Insulin Coverage Isosorbide Dinitrate (Isosorbide Dinitrate 10 Mg Tablet) 10 mg PO TID@0800 ,1300,1800 COUNT INCLUDES THE [facility]; Protocol Last Admin: 01/12/23 17:05 Dose: 10 mg Documented By: NINI Meclizine HCl (Meclizine Hcl 25 Mg Tablet) 25 mg PO TID PRN PRN Reason: Dizziness Multivitamins/Vitamin C (Multivitamin Tablet) 1 tab PO DAILY COUNT INCLUDES THE [facility] Last Admin: 01/12/23 08:16 Dose: 1 tab Documented By: AINSLEY Ondansetron HCl (Ondansetron Hcl 4 Mg/2 Ml Vial) 4 mg IVPUSH Q8H PRN PRN Reason: Nausea and Vomiting Pharmacy Consult (Consult Rx Perform Med Rec) 1 each MISCELLANE ONCE PRN PRN Reason: Consult order Rivaroxaban (Rivaroxaban 15 Mg Tablet) 15 mg PO DAILY@1800 COUNT INCLUDES THE [facility] Last Admin: 01/12/23 17:05 Dose: 15 mg Documented By: NINI Ropinirole HCl (Ropinirole Hcl 0.25 Mg Tablet) 0.25 mg PO BID COUNT INCLUDES THE [facility] Last Admin: 01/12/23 20:30 Dose: 0.25 mg Documented By: LEAH Simethicone (Simethicone 80 Mg Tab.Chew) 80 mg PO QIDWMHS PRN PRN Reason: Gas Sodium Chloride (0.9 % Sodium Chloride Flush 3 Ml Syringe) 3 ml IVFLUSH QSHIFT COUNT INCLUDES THE [facility] Last Admin: 01/13/23 00:07 Dose: 3 ml Documented By: TARIK Tamsulosin HCl (Tamsulosin Hcl 0.4 Mg Capsule) 0.4 mg PO DAILY@1200 QUETA Last Admin: 01/12/23 11:54 Dose: 0.4 mg Documented By: AINSLEY Labs 01/10/23 04:45 01/12/23 05:15 Labs: Laboratory Results - last 24 hr 01/12/23 01/12/23 01/12/23 11:20 16:11 20:22 POC Glucose 205 H 127 H 178 H 01/13/23 07:37 POC Glucose 139 H Assessment and Plan (1) Acute exacerbation of congestive heart failure: Status: Acute (2) Chronic atrial fibrillation: Status: Acute Plan This is an 82-year-old male with a complex cardiac history including HFrEF, AFib on Coumadin, biventricular ICD, diabetes, hypertension who presents to the hospital with shortness of breath. His workup in the ED is consistent with acute CHF. He has had recent adjustments to his biventricular ICD. Acute on chronic HFrEF exacerbation EF 20-25% - has biventricular ICD bumex - 2 mg IV bid Daily weights , Low-sodium diet, follow Is&Os cardiology following - started on hydralazine and isordil as unable to tolerate ARB/entresto Acute respiratory failure with Hypoxia due to CHF exacerbation able to be weaned to room air CKD stage 4 SCr trending down slightly to 2.09, remains near baseline monitor closely while on diuretics Chronic A. Fib hold coreg for now per cardiology continue xarelto DM hold oral POC and sliding scale Full Code DVT pptx, Xarelto attending - dr. Levin Requires ongoing inpatient hospitalization for management of CHF requiring IV diuresis Time Spent With Patient Time: Total time managing care of this patient today ____ minutes. Quality Stroke Does the patient have a stroke diagnosis?: No VTE Prior VTE?: No VTE Risk Level:: Medical - moderate - high VTE Device Contraindication: Treatment Not Indicated VTE Drug Contraindication: N/A - Med Ordered
[2023-01-13 08:34] LABS: Anion Gap 14 (12-20); Blood Urea Nitrogen 62 mg/dL (9-16); Calcium 9.4 mg/dL (8.4-10.2); Carbon Dioxide 30 mmol/L (22-29); Chloride 100 mmol/L (96-108); Creatinine Clr Calc Pharmacy 26.3; Estimated Glomerular Filt Rate 29; Glucose Random 153 mg/dL (60-115); Potassium 4.3 mmol/L (3.3-5.1); Sodium 140 mmol/L (135-145)
[2023-01-13] MEDS: rOPINIRole HCL 0.25 MG TABLET PO (08:39)
[2023-01-13] MEDS: Colchicine 0.6 MG TABLET PO (08:39)
[2023-01-13] MEDS: hydrALAZINE HCl 50 MG TABLET PO ×2 (08:39→14:24)
[2023-01-13] MEDS: Isosorbide Dinitrate 10 MG TABLET PO ×2 (08:39→11:56)
[2023-01-13] MEDS: Multivitamin TABLET 1 TAB PO (08:39)
[2023-01-13] MEDS: Bumetanide 1 MG/4 ML VIAL 2 MG IVPUSH (08:40)
[2023-01-13 11:52] VITALS: BP 123/59; PULSE 78; RESP 20; TEMP 36.4; O2SAT 96
[2023-01-13 11:53] LABS: Glucose, Whole Blood 279 mg/dL (60-115)
[2023-01-13] MEDS: Insulin Lispro 100 UNIT/ML 3 ML VIAL SUBCUT (11:56)
[2023-01-13] MEDS: Tamsulosin HCL 0.4 MG CAPSULE PO (11:57)
[2023-01-13] MEDS: Gabapentin 100 MG CAPSULE PO (11:57)
[2023-01-13 11:58] VITALS: BP 148/78; PULSE 78; RESP 18; TEMP 36.7; O2SAT 97
[2023-01-13] MEDS: Throat Lozenge, Medicated LOZENGE 1 LOZENGE MUCOUS MEM (12:05)
--- NOTE | 2023-01-13 12:13 | PM.PNCARD ---
Subjective Subjective Date of Service: 01/13/23 Interval history: Seen examined at bedside. Feeling good. Ambulated and has no exertional symptoms currently. Physical Exam Vital Signs: Last Vital Signs Temp 98.1 F 01/13/23 11:58 Pulse 78 01/13/23 11:58 Resp 18 01/13/23 11:58 BP 148/78 H 01/13/23 11:58 Pulse Ox 97 01/13/23 11:58 O2 Del Method Room Air 01/13/23 11:58 O2 Flow Rate 1 01/12/23 08:45 BMI result Body Mass Index 27.5 GENERAL APPEARANCE: in no acute distress, pleasant. NECK: no carotid bruit, no significant JVD. SKIN: no suspicious lesions, warm and dry. HEART: Systolic murmur apex, regular rate and rhythm. LUNGS: clear to auscultation bilaterally. ABDOMEN: soft, nontender. EXTREMITIES: no edema. PERIPHERAL PULSES: equal. NEUROLOGIC: No gross deficits, AAO X 3 Objective Labs and Meds 01/10/23 04:45 01/13/23 07:46 Lab results: Laboratory Results - last 24 hr 01/12/23 01/12/23 01/13/23 16:11 20:22 07:37 Sodium Potassium Chloride Carbon Dioxide Anion Gap BUN Creatinine Estim Creat Clear Calc Estimated GFR POC Glucose 127 H 178 H 139 H Random Glucose Calcium 01/13/23 01/13/23 07:46 11:47 Sodium 140 Potassium 4.3 Chloride 100 Carbon Dioxide 30 H Anion Gap 14 BUN 62 H Creatinine 2.19 H Estim Creat Clear Calc 26.3 Estimated GFR 29 POC Glucose 279 H Random Glucose 153 H Calcium 9.4 D Progress Note: A&P Assessment and plan (1) Acute exacerbation of congestive heart failure: Status: Acute Plan 82-year-old gentleman with acute on chronic congestive heart failure. He has been diuresed and clinically has improved significantly. Added hydralazine nitrate combination and tolerating it well. Can be discharged home on Bumex 2 mg in the morning and 1 mg in the afternoon. Holding the carvedilol for now. Follow-up with Dr. Montanez. Thank you for allowing me to participate in the care of your patient. Please feel free to contact me if you have any questions. Time Spent With Patient Time: Total time managing care of this patient today ____ minutes. Progress Note: Quality Stroke Does the patient have a stroke diagnosis?: No Procedures Date of Service Date of Service: 01/13/23
--- NOTE | 2023-01-13 12:28 | P.DS_ITS ---
DS: Providers Provider Date of Service: 01/13/23 Date of admission: 01/09/23 10:33 Primary care physician: Kishan Paez MD Consults: 01/09/23 10:34 Consult to Cardiology Routine Consulting Provider: [facility] Cardiovascular Services Reason for consultation: CHF, BiV ICD recently reprogrammed DS: Diagnosis Discharge Diagnosis (1) Acute exacerbation of congestive heart failure: Status: Acute DS: Summary Hospital Course Hospital Course: This is an 82-year-old male with a past medical history of heart failure with reduced ejection fraction, chronic AFib on oral anticoagulation, CAD status post remote CABG, biventricular ICD in place, type 2 diabetes, GERD, history of GI bleed, aortic aneurysm who presents to the hospital with a several-day history of worsening shortness of breath.? The patient states that he has been unable to lay in the supine position over the last 24 hours and in fact his dyspnea did not improve in the sitting position as well and hence he presented to the emergency room.? He denies any lower extremity edema nor any weight gain.? He denies any dietary indiscretions and reports compliance with his prescribed medications.? He is aware to take an extra dose of Bumex should his weight increase by 3 lb.? He denies having to do this over last several days.? However, he was seen in the outpatient cardiology clinic for routine follow-up on the day prior to admission during which his biventricular ICD was adjusted to a lower LV threshold and now presents with CHF symptoms. Upon arrival to the emergency room, the patient was noted to be hypoxic down to 90% on room air.? His BNP was elevated to 900, more than twice is prior value.? Chest x-ray was consistent with diffuse interstitial prominence.? He was placed on supplemental oxygen, given IV Bumex with minimal urine output.? Hence he will be admitted for further treatment of acute CHF. 82-year-old man treated for acute on chronic heart failure with reduced ejection fraction. Echocardiogram with EF 20-25%. Patient treated with IV Bumex 2 mg b.i.d.. Seen and evaluated by Cardiology who added Isordil and hydralazine for blood pressure. His shortness of breath especially has orthopnea significantly improved. Acute respiratory failure was secondary to the CHF exacerbation and he was able to be weaned off of oxygen back to room air. -1.8 L. CKD stage 4 remained at baseline. patient will be discharged with hydralazine, Isordil and Bumex 2 mg in the morning and 1 mg in the afternoon. His carvedilol will be held and he should follow-up with his mobile home set up person in the office. Of note patient requested a home oxygen evaluation but did not qualify with oxygen saturations greater than 90% with ambulation. diabetes mellitus type 2. New home medications Chronic atrial fibrillation. Continue Xarelto, carvedilol stopped as per Cardiology Time Spent with Patient Time attestation: Total time managing care of this patient today ____ minutes. Discharge coordination time: Greater than 30 minutes Quality: Safe Use of Opioids Does Pt have an Active Cancer Diagnosis on the Problem List?: No Quality: Stroke Does the patient have a stroke diagnosis?: No Physical Exam Vital Signs: Vital Signs: Last Vital Signs Temp 98.1 F 01/13/23 11:58 Pulse 78 01/13/23 11:58 Resp 18 01/13/23 11:58 BP 148/78 H 01/13/23 11:58 Pulse Ox 97 01/13/23 11:58 O2 Del Method Room Air 01/13/23 11:58 O2 Flow Rate 1 01/12/23 08:45 BMI result Body Mass Index 27.5 Appearing in no acute distress head is normocephalic atraumatic eyes pupils are PERRLA sclera is anicteric mouth throat mucous membranes are intact and moist neck is supple no lymphadenopathy, no JVD noted lung sounds are clear to auscultation heart regular rate rhythm, clear S1, S2 positive bowel sounds, abdomen is soft, nontender neuro patient is alert x3, no focal deficits DS: Data Data Completed and Pending Labs on day of discharge: Laboratory Results - last 24 hr 01/12/23 01/12/23 01/13/23 16:11 20:22 07:37 Sodium Potassium Chloride Carbon Dioxide Anion Gap BUN Creatinine Estim Creat Clear Calc Estimated GFR POC Glucose 127 H 178 H 139 H Random Glucose Calcium 01/13/23 01/13/23 07:46 11:47 Sodium 140 Potassium 4.3 Chloride 100 Carbon Dioxide 30 H Anion Gap 14 BUN 62 H Creatinine 2.19 H Estim Creat Clear Calc 26.3 Estimated GFR 29 POC Glucose 279 H Random Glucose 153 H Calcium 9.4 D Discharge Plan Discharge Anticipated Discharge Date/Time: 01/13/23 12:21 Patient Disposition: Home Health Service Discharge Diagnosis: Acute on chronic heart failure with reduced ejection fraction Acute respiratory failure with hypoxia CKD stage 4 Referrals: Philippe,Kishan Flores MD [Primary Care Provider] - 1 Week Discharge Medications: New bumetanide 2 mg tablet 2 mg PO DAILY Qty: 30 0RF bumetanide 2 mg tablet 2 mg PO DAILY@1700 Qty: 30 0RF isosorbide dinitrate 10 mg Tablet 10 mg PO TID@0800,1300,1800 Qty: 90 0RF Protocol: Hold for SBP< HOLD for SBP < : 90 hydralazine 50 mg Tablet 50 mg PO TID Qty: 90 0RF Protocol: Hold for SBP< HOLD for SBP < : 90 Continued nitroglycerin [Nitro-Dur] 0.4 mg/hr patch 24 hour 1 patch transdermal DAILY 90 Days Qty: 90 3RF Rx Instructions: allow nitrate-free interval of approx. 10-12 hrs per 24-hour period atorvastatin 80 mg tablet 80 mg PO DAILY@1800 90 Days Qty: 90 2RF Xarelto 15 mg tablet 15 mg PO DAILY@1800 Qty: 90 3RF glimepiride 4 mg tablet 4 mg PO QAM Qty: 90 3RF Januvia 50 mg tablet 50 mg PO DAILY Qty: 90 3RF nitroglycerin [Nitrostat] 0.4 mg tablet, sublingual 0.4 mg sublingual Q5M PRN (Reason: chest pain) Qty: 25 1RF Rx Instructions: do not exceed 3 doses per episode colchicine [Colcrys] 0.6 mg tablet 0.6 mg PO DAILY 90 Days Qty: 90 3RF allopurinol 100 mg tablet 100 mg PO BEDTIME tamsulosin [Flomax] 0.4 mg capsule 0.4 mg PO DAILY@1200 gabapentin 100 mg capsule 100 mg PO DAILY@1200 meclizine 25 mg tablet 25 mg PO TID PRN (Reason: Dizziness) multivitamin Tablet 1 tab PO DAILY ropinirole 0.25 mg tablet 0.25 mg PO BID 90 Days Qty: 180 3RF Discontinued carvedilol 6.25 mg tablet 6.25 mg PO BID Qty: 180 3RF bumetanide 1 mg tablet 1 mg PO DAILY Rx Instructions: extra as needed for edema Discharge Orders: Discharge Order (Routine); Ordered 01/13/23 Ordered By: Hilda Rooney Diet: Advance to usual diet Activity on Discharge: As tolerated Stand Alone Forms: Patient Portal Discharge page Care Plan Goals: You will be on bumetanide, 2 mg daily in the morning and 1 mg in the afternoon Your carvedilol has been stopped Health Concerns: Acute on chronic heart failure with reduced ejection fraction Acute respiratory failure with hypoxia CKD stage 4 Plan of Treatment: Follow-up with primary care provider as needed Take all medications as prescribed Assessment: see discharge summary
[2023-01-13 13:10] VITALS: PULSE 70; PULSE 97; O2SAT 96
== END 2023-01-13 15:34 | disposition home health service (06) | DRG 291 ==
LOC: HO.ED 08:25 → HO.EDOVER 10:44 → HO.S3 01-10 13:36
PROVIDERS: Physician Assistant; Physician Assistant Medical; Admitting Provider Family Medicine; Emergency Provider Emergency Medicine; PCP Internal Medicine; Visit Provider Nurse Practitioner Acute Care
DX: I13.0 Hypertensive heart and chronic kidney disease with heart failure and stage 1 through stage 4 chronic kidney disease, or unspecified chronic kidney disease (principal); I50.23 Acute on chronic systolic (congestive) heart failure; J96.01 Acute respiratory failure with hypoxia; N18.4 Chronic kidney disease, stage 4 (severe); I48.20 Chronic atrial fibrillation, unspecified; I25.10 Atherosclerotic heart disease of native coronary artery without angina pectoris; N40.0 Benign prostatic hyperplasia without lower urinary tract symptoms; I42.9 Cardiomyopathy, unspecified; E11.22 Type 2 diabetes mellitus with diabetic chronic kidney disease; E11.42 Type 2 diabetes mellitus with diabetic polyneuropathy; Z95.810 Presence of automatic (implantable) cardiac defibrillator; Z87.891 Personal history of nicotine dependence; Z95.1 Presence of aortocoronary bypass graft; Z79.01 Long term (current) use of anticoagulants; Z79.84 Long term (current) use of oral hypoglycemic drugs; Z79.899 Other long term (current) drug therapy
CPT/HCPCS: 36415; 71045; 80048; 82947; 83880; 84484; 85025; 85027; 93005; 99285

== ENCOUNTER → 2023-01-09 10:33 | Outpatient (BNV) | payer MEDICARE, OTHER, SELFPAY | PROVIDERS: Admitting Provider Family Medicine; Emergency Provider Emergency Medicine; PCP Internal Medicine; Visit Provider Family Medicine | DX: I50.9 Heart failure, unspecified (principal); I48.20 Chronic atrial fibrillation, unspecified | CPT/HCPCS: 99223; 99232; 99233; 99239 ==

== ENCOUNTER → 2023-01-09 10:33 | Outpatient (BNV) | payer MEDICARE, OTHER, SELFPAY | PROVIDERS: Admitting Provider Family Medicine; Emergency Provider Emergency Medicine; PCP Internal Medicine; Visit Provider Internal Medicine Cardiovascular Disease | DX: I50.9 Heart failure, unspecified (principal) | CPT/HCPCS: 93010; 99222; 99232 ==

== ENCOUNTER → 2023-01-13 23:59 | Outpatient (BNV) | payer MEDICARE, OTHER, SELFPAY ==
--- NOTE | 2023-01-24 12:29 | MHC.OFFVIS ---
Intake Intake Visit Reasons: Remote HF Monitoring- [employer] Allergies dabigatran etexilate [Pradaxa] Allergy (Unknown, Verified 01/09/23 05:49) indigestion sacubitril [From ENTRESTO] Allergy (Unknown, Verified 01/09/23 05:49) FEELS LIKE HAVING A HEART ATTACK valsartan [From ENTRESTO] Allergy (Unknown, Verified 01/09/23 05:49) FEELS LIKE HAVING A HEART ATTACK PFSH Medical History Acute on chronic systolic (congestive) heart failure Aortic aneurysm Biventricular ICD (implantable cardioverter-defibrillator) in place CAD (coronary artery disease) Chronic atrial fibrillation Congestive heart failure GERD (gastroesophageal reflux disease) Gout Heart failure with reduced ejection fraction History of GI bleed Hypercholesterolemia Hypertension Ischemic cardiomyopathy Obesity (BMI 30-39.9) TIA (transient ischemic attack) Type 2 diabetes mellitus with hyperglycemia Surgical History Coronary artery disease involving coronary bypass graft History of cardiac defibrillator placement History of cholecystectomy Family History Father CVD (cardiovascular disease) Hypertension Mother Cancer Social History Household Members: Children Housing: Apartment Do you presently have visiting nurse or other home services: No Alcohol intake: never Patient Tobacco Use Status: Former Tobacco user Years Smoked: quit 1985 e-Cigarette/Vaping Use: Never Used Second Hand Smoke Exposure: No Advance Directives Date on File: 06/19/22 service: Yes Current occupational status: retired Cognitive needs: No Hearing needs: No Vision needs: Yes Office Procedures Cardiac Device Check Cardiac Device Check Details: Remote heart failure report generated 01/13/2003. OptiVol is rising but still within normal range [id number] Cardiac Device Interrogation, cardio physiologic monitor Procedure code (CPT) selection complete Assessment & Plan Assessment & Plan Medications: Discontinued bumetanide Discontinued Reason: Duplicate 2 mg PO DAILY 30 tabs 0RF I50.9 - Heart failure, unspecified bumetanide Discontinued Reason: Duplicate 2 mg PO DAILY@1700 30 tabs 0RF I50.9 - Heart failure, unspecified meclizine 25 mg PO TID 30 tabs 1RF Coding Level of Care Code Procedure Only Diagnoses CPT Codes Cardiac Device Check - Cardiac Device 15: [id number] Cardiac Device Interrogation, cardio physiologic monitor ([id number])
== END ==
PROVIDERS: PCP Internal Medicine; Visit Provider Internal Medicine Cardiovascular Disease
DX: I50.20 Unspecified systolic (congestive) heart failure (principal)
CPT/HCPCS: 93297

== ENCOUNTER → 2023-02-16 23:59 | Outpatient (BNV) | payer MEDICARE, OTHER, SELFPAY ==
--- NOTE | 2023-02-19 15:57 | MHC.OFFVIS ---
Intake Intake Visit Reasons: Remote HF Monitoring- [employer] Allergies dabigatran etexilate [Pradaxa] Allergy (Unknown, Verified 01/09/23 05:49) indigestion sacubitril [From ENTRESTO] Allergy (Unknown, Verified 01/09/23 05:49) FEELS LIKE HAVING A HEART ATTACK valsartan [From ENTRESTO] Allergy (Unknown, Verified 01/09/23 05:49) FEELS LIKE HAVING A HEART ATTACK PFSH Medical History Acute on chronic systolic (congestive) heart failure Aortic aneurysm Biventricular ICD (implantable cardioverter-defibrillator) in place CAD (coronary artery disease) Chronic atrial fibrillation Congestive heart failure GERD (gastroesophageal reflux disease) Gout Heart failure with reduced ejection fraction History of GI bleed Hypercholesterolemia Hypertension Ischemic cardiomyopathy Obesity (BMI 30-39.9) TIA (transient ischemic attack) Type 2 diabetes mellitus with hyperglycemia Surgical History Coronary artery disease involving coronary bypass graft History of cardiac defibrillator placement History of cholecystectomy Family History Father CVD (cardiovascular disease) Hypertension Mother Cancer Social History Household Members: Children Housing: Apartment Do you presently have visiting nurse or other home services: No Alcohol intake: never Patient Tobacco Use Status: Former Tobacco user Years Smoked: quit 1985 e-Cigarette/Vaping Use: Never Used Second Hand Smoke Exposure: No Advance Directives Date on File: 06/19/22 service: Yes Current occupational status: retired Cognitive needs: No Hearing needs: No Vision needs: Yes Office Procedures Cardiac Device Check Cardiac Device Check Details: Remote heart failure report generated 02/19/2023. Heart failure parameters are stable [id number] Cardiac Device Interrogation, cardio physiologic monitor Procedure code (CPT) selection complete Assessment & Plan Assessment & Plan Medications: Discontinued meclizine 25 mg PO TID 30 tabs 1RF Coding Level of Care Code Procedure Only Diagnoses CPT Codes Cardiac Device Check - Cardiac Device 15: [id number] Cardiac Device Interrogation, cardio physiologic monitor ([id number])
== END ==
PROVIDERS: PCP Internal Medicine; Visit Provider Internal Medicine Cardiovascular Disease
DX: I50.9 Heart failure, unspecified (principal); Z95.810 Presence of automatic (implantable) cardiac defibrillator
CPT/HCPCS: 93297

== ENCOUNTER → 2023-03-22 23:59 | Outpatient (BNV) | payer MEDICARE, OTHER, SELFPAY ==
--- NOTE | 2023-03-22 10:21 | MHC.OFFVIS ---
Intake Intake Visit Reasons: Remote ICD Check- [employer] Allergies dabigatran etexilate [Pradaxa] Allergy (Unknown, Verified 01/09/23 05:49) indigestion sacubitril [From ENTRESTO] Allergy (Unknown, Verified 01/09/23 05:49) FEELS LIKE HAVING A HEART ATTACK valsartan [From ENTRESTO] Allergy (Unknown, Verified 01/09/23 05:49) FEELS LIKE HAVING A HEART ATTACK PFSH Medical History Acute on chronic systolic (congestive) heart failure Aortic aneurysm Biventricular ICD (implantable cardioverter-defibrillator) in place CAD (coronary artery disease) Chronic atrial fibrillation Congestive heart failure GERD (gastroesophageal reflux disease) Gout Heart failure with reduced ejection fraction History of GI bleed Hypercholesterolemia Hypertension Ischemic cardiomyopathy Obesity (BMI 30-39.9) TIA (transient ischemic attack) Type 2 diabetes mellitus with hyperglycemia Surgical History Coronary artery disease involving coronary bypass graft History of cardiac defibrillator placement History of cholecystectomy Family History Father CVD (cardiovascular disease) Hypertension Mother Cancer Social History Household Members: Children Housing: Apartment Do you presently have visiting nurse or other home services: No Alcohol intake: never Patient Tobacco Use Status: Former Tobacco user Years Smoked: quit 1985 e-Cigarette/Vaping Use: Never Used Second Hand Smoke Exposure: No Advance Directives Date on File: 06/19/22 service: Yes Current occupational status: retired Cognitive needs: No Hearing needs: No Vision needs: Yes Office Procedures Cardiac Device Check Cardiac Device Check Details: Remote ICD report generated 03/22/2023. ICD function is adequate [id number] Cardiac Interrogation, implant defibrillator w/interim Procedure code (CPT) selection complete Coding Level of Care Code Procedure Only CPT Codes Cardiac Device Check - Cardiac Device 13: [id number] Cardiac Interrogation, implant defibrillator w/interim ([id number])
== END ==
PROVIDERS: PCP Internal Medicine; Visit Provider Internal Medicine Cardiovascular Disease
DX: I25.5 Ischemic cardiomyopathy (principal); Z95.810 Presence of automatic (implantable) cardiac defibrillator
CPT/HCPCS: 93295

== ENCOUNTER → 2023-03-22 23:59 | Outpatient (BNV) | payer MEDICARE, OTHER, SELFPAY ==
--- NOTE | 2023-03-22 10:21 | A.OFFVIS_ITS ---
Intake Intake Visit Reasons: Remote HF Monitoring- [employer] Allergies dabigatran etexilate [Pradaxa] Allergy (Unknown, Verified 01/09/23 05:49) indigestion sacubitril [From ENTRESTO] Allergy (Unknown, Verified 01/09/23 05:49) FEELS LIKE HAVING A HEART ATTACK valsartan [From ENTRESTO] Allergy (Unknown, Verified 01/09/23 05:49) FEELS LIKE HAVING A HEART ATTACK PFSH Medical History Acute on chronic systolic (congestive) heart failure Aortic aneurysm Biventricular ICD (implantable cardioverter-defibrillator) in place CAD (coronary artery disease) Chronic atrial fibrillation Congestive heart failure GERD (gastroesophageal reflux disease) Gout Heart failure with reduced ejection fraction History of GI bleed Hypercholesterolemia Hypertension Ischemic cardiomyopathy Obesity (BMI 30-39.9) TIA (transient ischemic attack) Type 2 diabetes mellitus with hyperglycemia Surgical History Coronary artery disease involving coronary bypass graft History of cardiac defibrillator placement History of cholecystectomy Family History Father CVD (cardiovascular disease) Hypertension Mother Cancer Social History Household Members: Children Housing: Apartment Do you presently have visiting nurse or other home services: No Alcohol intake: never Patient Tobacco Use Status: Former Tobacco user Years Smoked: quit 1985 e-Cigarette/Vaping Use: Never Used Second Hand Smoke Exposure: No Advance Directives Date on File: 06/19/22 service: Yes Current occupational status: retired Cognitive needs: No Hearing needs: No Vision needs: Yes Office Procedures Cardiac Device Check Cardiac Device Check Details: Remote heart failure report generated 03/22/2023. OptiVol is rising but still within normal limits [id number] Cardiac Device Interrogation, cardio physiologic monitor Procedure code (CPT) selection complete Coding Level of Care Code Procedure Only CPT Codes Cardiac Device Check - Cardiac Device 15: [id number] Cardiac Device Interrog ation, cardio physiologic monitor ([id number])
== END ==
PROVIDERS: PCP Internal Medicine; Visit Provider Internal Medicine Cardiovascular Disease
DX: I50.20 Unspecified systolic (congestive) heart failure (principal); Z95.810 Presence of automatic (implantable) cardiac defibrillator
CPT/HCPCS: 93297

== ENCOUNTER 2023-03-27 13:23 | Outpatient (AMB) | payer MEDICARE, OTHER, SELFPAY ==
[2023-03-27 13:27] VITALS: BP 138/76; PULSE 81; O2SAT 96; BMI 27.3
--- NOTE | 2023-03-27 13:27 | MHC.PC.OV ---
Vital Signs 03/27/23 13:27 Height 5 ft 6 in Weight 169 lb BMI 27.3 BP 138/76 Blood Pressure Location Lt brachial Position Sitting Pulse 81 Pulse Source Pulse Oximeter Pulse Oximetry (%) 96 Oxygen Delivery Method Room Air Intake Visit Reasons: Annual Exam & PAF, CHF Allergies dabigatran etexilate [Pradaxa] Allergy (Unknown, Verified 03/27/23 13:28) indigestion sacubitril [From ENTRESTO] Allergy (Unknown, Verified 03/27/23 13:28) FEELS LIKE HAVING A HEART ATTACK valsartan [From ENTRESTO] Allergy (Unknown, Verified 03/27/23 13:28) FEELS LIKE HAVING A HEART ATTACK Medication List - Last Reconciled 03/27/23 by Kishan Paez MD allopurinol 100 mg PO DAILY atorvastatin 80 mg PO DAILY@1800 90 days bumetanide orally as directed; Take 2 tablets in the morning to equal 2 mg and 1 tablet in the afternoon to equal 1 mg. colchicine (gout) (Colcrys) 0.6 mg PO DAILY 90 days gabapentin 100 mg PO DAILY@1200 glimepiride 4 mg PO QAM hydralazine 50 mg See Protocol PO TID 90 days meclizine 25 mg PO TID PRN multivitamin 1 tab PO DAILY nitroglycerin (Nitrostat) 0.4 mg sublingual Q5M PRN nitroglycerin 0.4 mg/hr 1 patch transdermal DAILY rivaroxaban (Xarelto) 15 mg PO DAILY@1800 ropinirole 0.25 mg PO BID 90 days sitagliptin phosphate (Januvia) 50 mg PO DAILY tamsulosin (Flomax) 0.4 mg PO DAILY@1200 Tobacco use date assessed: 12/06/22 HPI Annual Exam & PAF, CHF HPI Details 82-year-old overweight male with atrial fibrillation chronic congestive heart failure with reduced ejection fraction coronary artery disease chronic kidney disease GERD hypercholesterolemia controlled diabetes mellitus hypertension last seen in November 2022. Patient is here for an annual exam. Patient has an ICD and regularly follows up with Cardiology patient is up-to-date with podiatry. December 2022 was in the hospital for acute exacerbation of congestive heart failure. Patient had some adjustment on the ICD. Patient was prescribed hydralazine and Isordil carvedilol was held. [facility]LY [facility] Medical History Acute on chronic systolic (congestive) heart failure Aortic aneurysm Biventricular ICD (implantable cardioverter-defibrillator) in place CAD (coronary artery disease) Chronic atrial fibrillation Congestive heart failure GERD (gastroesophageal reflux disease) Gout Heart failure with reduced ejection fraction History of GI bleed Hypercholesterolemia Hypertension Ischemic cardiomyopathy Obesity (BMI 30-39.9) TIA (transient ischemic attack) Type 2 diabetes mellitus with hyperglycemia Surgical History Coronary artery disease involving coronary bypass graft History of cardiac defibrillator placement History of cholecystectomy Family History Father CVD (cardiovascular disease) Hypertension Mother Cancer Social History Household Members: Children Housing: Apartment Do you presently have visiting nurse or other home services: No Alcohol intake: never Patient Tobacco Use Status: Former Tobacco user Years Smoked: quit 1985 e-Cigarette/Vaping Use: Never Used Second Hand Smoke Exposure: No Advance Directives Date on File: 06/19/22 service: Yes Current occupational status: retired Cognitive needs: No Hearing needs: No Vision needs: Yes Questionnaire Thrive Questionnaire Date Thrive assessed: 01/11/23 RICHIE-7 AMB Questionnaire RICHIE-7 Date RICHIE - 7 assessed: 12/06/22 Source: Developed by Drs. Og Leija, Nabila Russell, Mike Fung and colleagues, with an educational quinten from [employer]. Review of Systems Const Denies poor appetite and Denies weakness Eyes Denies no additional complaints ENT Reports Normal hearing present, Denies dizziness, Denies nasal congestion, Denies tinnitus and Denies sore throat Card Denies chest pain, Denies syncope, Denies rapid heart rate and Denies dyspnea Resp Denies cough and Denies dyspnea GI Denies change in stool character, Reports constipation, Denies diarrhea, Denies nausea and Denies vomiting Denies dysuria and Denies urinary frequency Neuro Reports Normal hearing present, Denies confusion, Denies dizziness, Denies syncope and Denies weakness Psych Denies confusion Physical exam (Primary Care) Vital Signs: Last Vital Signs Pulse 81 03/27/23 13:27 BP 138/76 03/27/23 13:27 Pulse Ox 96 03/27/23 13:27 Oxygen Delivery Method Room Air 03/27/23 13:27 BMI result Body Mass Index 27.3 Tobacco/Smoking Status: Tobacco use Status Tobacco use date assessed 12/06/22 03/27/23 13:28 Patient Tobacco Use Status Former Tobacco user 03/27/23 13:28 e-Cigarette/Vaping Use Never Used 03/27/23 13:28 Thrive Assessment: Date of Thrive Assessment Date Thrive assessed 01/11/23 03/27/23 13:28 Const General: No confusion Orientation/consciousness: No confusion HENMT Head: Yes normocephalic Ears: external ears normal and TM's normal bilaterally Face and sinus: Yes normal facial exam Mouth: moist mucous membranes Throat: Yes tonsils normal Eyes Conjunctivae: conjunctivae normal Pupils: Equal, round and reactive pupils present and Pupil accommodation reflex normal Direct Ophthalmoscopy: normal light reflex Neck Neck: No lymphadenopathy Thyroid: Thyroid normal Chest Chest palpation & inspection: normal inspection of the chest Resp Effort & Inspection: normal respiratory effort and no audible wheezes Auscultation: clear to auscultation bilaterally, no crackles, no wheezes and lung sounds not diminished Cardio Rate: regular rate Rhythm: regular rhythm Peripheral pulses: radial pulses present and dorsalis pedis present GI Other: guaiac negative, prostate enlarged Palpation (GI): no masses Auscultation: normal bowel sounds and normoactive bowel sounds Male General Exam: Yes normal external exam Skin General skin exam: no rashes or lesions noted Rashes: no rashes Neuro General: No confusion Cranial nerves: Yes Equal, round and reactive pupils present and Yes Normal hearing present Cognition (Neuro): normal cognition Gait exam (Neuro): Normal gait present Motor exam (neuro): 5/5 motor strength present throughout Deep tendon reflexes (DTR's): Right brachioradialis reflex intensity grade: 2+, Left brachioradialis reflex intensity grade: 2+, Right patellar reflex intensity grade: 2+ and Left patellar reflex intensity grade: 2+ Extrem General: No edema Office Procedures Flu Questionnaire Does the patient have a severe egg allergy?: No Does the patient have severe life threatening allergies?: No Does the patient have a fever or illness today?: No Has the patient ever had Guillain-[place] Syndrome?: No Has the patient ever had any past reaction to a flu shot?: No Results AMB Hemoglobin A1c AMB Hemoglobin A1c 6.4 % Last Edit by Yenny Huertas CMA on 03/27/23 13:51 Immunizations flu vacc [id number] 6mos up(PF) 60 mcg(15 mcgx4)/0.5 mL IM syringe Performing Provider: Kishan Paez MD [facility] Documented (not given) by: Yenny Huertas CMA on 03/27/23 13:44 Reason Not Given: Patient Refused Results Reviewed Results Reviewed: Laboratory Last Values Hgb A1c (Clinic) 6.4 % (4.0-6.0) H 03/27/23 13:38 Assessment and Plan Assessment & Plan (1) Annual physical exam: Code(s): Z00.00 - Encounter for general adult medical examination without abnormal findings (2) Congestive heart failure due to cardiomyopathy: Code(s): I50.9 - Heart failure, unspecified; I42.9 - Cardiomyopathy, unspecified Plan: Weigh daily and continue with the diuretics (3) CAD (coronary artery disease): Code(s): I25.10 - Atherosclerotic heart disease of [place] coronary artery without angina pectoris Qualifiers: Coronary Disease-Associated Artery/Lesion type: [place] artery [place] vs. transplanted heart: [place] heart Associated angina: without angina Qualified Code(s): I25.10 - Atherosclerotic heart disease of [place] coronary artery without angina pectoris Plan: Control the cholesterol, weight, blood pressure, diabetes (4) Chronic kidney disease (CKD) stage G3b/A1, moderately decreased glomerular filtration rate (GFR) between 30-44 mL/min/1.73 square meter and albuminuria creatinine ratio less than 30 mg/g: Code(s): N18.32 - Chronic kidney disease, stage 3b Plan: Keep well hydrated avoid NSAIDs (5) GERD (gastroesophageal reflux disease): Code(s): K21.9 - Gastro-esophageal reflux disease without esophagitis Qualifiers: Esophagitis presence: without esophagitis Qualified Code(s): K21.9 - Gastro-esophageal reflux disease without esophagitis Plan: Avoid the foods that causes that usually spicy foods, tomato products, juices, coffee, soda and foods that your sensitive to. After eating do not lie down, allow 3-4 hours before in lie down. And keep the head of bed above 30 degrees to avoid the acid from going up. (6) Type 2 diabetes mellitus with hyperglycemia: Comment: Dr. Marquis Code(s): E11.65 - Type 2 diabetes mellitus with hyperglycemia Qualifiers: Diabetes mellitus technician terminal and repeater insulin use: without technician terminal and repeater use Qualified Code(s): E11.65 - Type 2 diabetes mellitus with hyperglycemia Plan: Decrease the amount of carbohydrate intake, pasta, bread, rice and potatoes are all sugar and that is aside from all the sweet stuff, remember that fruits are good but they are Sweet also. Hemoglobin A1c goal of less than 7.0 patient is on glimepiride 4 mg once a day Januvia 50 mg once a day (7) Hypertension: Code(s): I10 - Essential (primary) hypertension Qualifiers: Hypertension type: essential hypertension Qualified Code(s): I10 - Essential (primary) hypertension Plan: Continue with blood pressure medication. Decrease salt intake and exercise patient takes hydralazine 50 mg 3 times a day nitroglycerin patch (8) Hypercholesterolemia: Code(s): E78.00 - Pure hypercholesterolemia, unspecified Plan: Avoid fried foods, chicken skin, eggs, butter margarine, pastries and meat. Be it pork or beef they have a lot of cholesterol patient on atorvastatin 80 mg once a day (9) Biventricular ICD (implantable cardioverter-defibrillator) in place: Code(s): Z95.810 - Presence of automatic (implantable) cardiac defibrillator Plan: Patient follows up with Cardiology Orders: Orders AMB Hemoglobin A1c Today Z13.9 - Encounter for screening, unspecified Influenza [id number] Immunization Today Z23 - Encounter for immunization Coding Level of Care Code Est Pt Prev Care >65y(68478) Diagnoses Annual physical exam Z00.00 Congestive heart failure due to cardiomyopathy I50.9; I42.9 Coronary artery disease involving [place] coronary artery of [place] heart without angina pectoris I25.10 Coronary Disease-Associated Artery/Lesion type: [place] artery [place] vs. transplanted heart: [place] heart Associated angina: without angina Chronic kidney disease (CKD) stage G3b/A1, moderately decreased glomerular filtration rate (GFR) between 30-44 mL/min/1.73 square meter and albuminuria creatinine ratio less than 30 mg/g N18.32 Gastroesophageal reflux disease without esophagitis K21.9 Esophagitis presence: without esophagitis Type 2 diabetes mellitus with hyperglycemia, without long-term current use of insulin E11.65 Diabetes mellitus mcfp insulin use: without mcfp use Essential hypertension I10 Hypertension type: essential hypertension Hypercholesterolemia E78.00 Biventricular ICD (implantable cardioverter-defibrillator) in place Z95.810
== END 2023-03-27 14:33 | disposition home or self-care (01) ==
PROVIDERS: PCP Internal Medicine; Visit Provider Internal Medicine
DX: Z00.00 Encounter for general adult medical examination without abnormal findings (principal); I13.0 Hypertensive heart and chronic kidney disease with heart failure and stage 1 through stage 4 chronic kidney disease, or unspecified chronic kidney disease; I50.9 Heart failure, unspecified; N18.32 Chronic kidney disease, stage 3b; E11.65 Type 2 diabetes mellitus with hyperglycemia; Z23 Encounter for immunization; I42.9 Cardiomyopathy, unspecified; I25.10 Atherosclerotic heart disease of native coronary artery without angina pectoris; K21.9 Gastro-esophageal reflux disease without esophagitis; E78.00 Pure hypercholesterolemia, unspecified; Z95.810 Presence of automatic (implantable) cardiac defibrillator
CPT/HCPCS: 83036; 99213; 99397

== ENCOUNTER → 2023-04-25 23:59 | Outpatient (BNV) | payer MEDICARE, OTHER, SELFPAY ==
--- NOTE | 2023-04-26 15:55 | MHC.OFFVIS ---
Intake Intake Visit Reasons: Remote HF Monitoring- [employer] Allergies dabigatran etexilate [Pradaxa] Allergy (Unknown, Verified 03/27/23 13:28) indigestion sacubitril [From ENTRESTO] Allergy (Unknown, Verified 03/27/23 13:28) FEELS LIKE HAVING A HEART ATTACK valsartan [From ENTRESTO] Allergy (Unknown, Verified 03/27/23 13:28) FEELS LIKE HAVING A HEART ATTACK PFSH Medical History Acute on chronic systolic (congestive) heart failure Aortic aneurysm Biventricular ICD (implantable cardioverter-defibrillator) in place CAD (coronary artery disease) Chronic atrial fibrillation Congestive heart failure GERD (gastroesophageal reflux disease) Gout Heart failure with reduced ejection fraction History of GI bleed Hypercholesterolemia Hypertension Ischemic cardiomyopathy Obesity (BMI 30-39.9) TIA (transient ischemic attack) Type 2 diabetes mellitus with hyperglycemia Surgical History Coronary artery disease involving coronary bypass graft History of cardiac defibrillator placement History of cholecystectomy Family History Father CVD (cardiovascular disease) Hypertension Mother Cancer Social History Household Members: Children Housing: Apartment Do you presently have visiting nurse or other home services: No Alcohol intake: never Patient Tobacco Use Status: Former Tobacco user Years Smoked: quit 1985 e-Cigarette/Vaping Use: Never Used Second Hand Smoke Exposure: No Advance Directives Date on File: 06/19/22 service: Yes Current occupational status: retired Cognitive needs: No Hearing needs: No Vision needs: Yes Office Procedures Cardiac Device Check Cardiac Device Check Details: Remote heart failure report generated 04/25/2023. Heart failure parameters are stable [id number] Cardiac Device Interrogation, cardio physiologic monitor Procedure code (CPT) selection complete Coding Level of Care Code Procedure Only CPT Codes Cardiac Device Check - Cardiac Device 15: [id number] Cardiac Device Interrogation, cardio physiologic monitor ([id number])
== END ==
PROVIDERS: PCP Internal Medicine; Visit Provider Internal Medicine Cardiovascular Disease
DX: I50.20 Unspecified systolic (congestive) heart failure (principal); Z95.810 Presence of automatic (implantable) cardiac defibrillator
CPT/HCPCS: 93297

== ENCOUNTER 2023-05-21 16:24 | Inpatient (IN) | payer MEDICARE, OTHER, SELFPAY ==
--- NOTE | ~2023-05-21 | XR_ITS ---
EXAMINATION: XR CHEST CLINICAL INFORMATION: Dyspnea COMPARISON: Chest x-ray 01/09/2023 TECHNIQUE: Frontal view of the chest was obtained. FINDINGS: The lungs are hyperinflated but liver acute pneumonic process. There is prominent bilateral interstitial markings similar to previous study. There is no pleural effusion. The heart size and pulmonary vascularity is normal. Pacer electrodes in right atrium, right ventricle and coronary sinus. There is surgical tuan in the mediastinum and median sternotomy sutures from previous CABG. No gross bony abnormality seen. XR/XR chest 1V IMPRESSION: Hyperinflated lungs with prominent bilateral interstitial markings similar to previous study. No change in the pacer electrodes and postsurgical changes from previous study.
[2023-05-21 16:28] VITALS: BP 147/64; PULSE 87; RESP 18; TEMP 37.2; O2SAT 94; BMI 26.3
--- NOTE | 2023-05-21 16:29 | ED.SOB ---
HPI - SOB/Dyspnea General Chief Complaint: Dyspnea Stated Complaint: trouble breathing Time Seen by Provider: 05/21/23 19:37 Source: patient and family (Son) Mode of arrival: ambulatory Limitations: no limitations History of Present Illness HPI Narrative: 82-year-old male history of CHF with ejection fraction of 30% patient is using Bumex, chronic renal insufficiency, atrial fibrillation on Xarelto, CAD came in for evaluation of shortness of breath x2 days worsening with lying supine patient cannot sleep at night patient tried to sleep on the recliner with no relief of his symptoms, patient takes nitro and Bumex at home for her symptoms, patient otherwise declined fever, chills, coughing, or exposure to a sick contact. Related Data Home Medications Medication Instructions Recorded Confirmed multivitamin 1 tab PO DAILY 04/12/20 03/27/23 gabapentin 100 mg capsule 100 mg PO DAILY@1200 06/27/22 03/27/23 tamsulosin 0.4 mg capsule (Flomax) 0.4 mg PO DAILY@1200 06/27/22 03/27/23 meclizine 25 mg tablet 25 mg PO TID PRN Dizziness 01/09/23 03/27/23 bumetanide 1 mg tablet See Rx Instructions PO DIRECTED 03/27/23 Previous Rx's Medication Instructions Recorded ropinirole 0.25 mg tablet 0.25 mg PO BID 90 days #180 tabs 07/20/22 rivaroxaban 15 mg tablet (Xarelto) 15 mg PO DAILY@1800 #90 tabs 09/21/22 glimepiride 4 mg tablet 4 mg PO QAM #90 tabs 10/24/22 sitagliptin phosphate 50 mg tablet 50 mg PO DAILY #90 tabs 10/24/22 (Januvia) colchicine (gout) 0.6 mg tablet 0.6 mg PO DAILY 90 days #90 tabs 12/20/22 (Colcrys) nitroglycerin 0.4 mg sublingual 0.4 mg sublingual Q5M PRN chest 12/20/22 tablet (Nitrostat) pain #25 tabs hydralazine 50 mg tablet 50 mg PO TID 90 days #270 tabs 01/19/23 allopurinol 100 mg tablet 100 mg PO DAILY #90 tabs 01/20/23 nitroglycerin 0.4 mg/hr 1 patch transdermal DAILY #90 02/21/23 transdermal 24 hour patch patches atorvastatin 80 mg tablet 80 mg PO QPM #90 tabs 04/23/23 Allergies Allergy/AdvReac Type Severity Reaction Status Date / Time dabigatran etexilate Allergy Unknown indigestion Verified 03/27/23 13:28 [Pradaxa] sacubitril [From ENTRESTO] Allergy Unknown FEELS LIKE Verified 03/27/23 13:28 HAVING A HEART ATTACK valsartan [From ENTRESTO] Allergy Unknown FEELS LIKE Verified 03/27/23 13:28 HAVING A HEART ATTACK Review of Systems Review of Systems: All other systems are reviewed and are negative Constitutional: Reports as per HPI and Reports no additional constitutional complaints Eyes: Reports as per HPI and Reports no additional eye complaints Reports system reviewed and no additional complaints, except as documented Cardiovascular: Reports as per HPI and Reports no additional cardiovascular complaints Respiratory: Reports as per HPI and Reports no additional respiratory complaints Gastrointestinal: Reports as per HPI and Reports no additional gastrointestinal complaints Genitourinary: Reports no additional female genitourinary complaints Musculoskeletal: Reports no additional musculoskeletal complaints Skin/Breast: Reports system reviewed and no additional complaints, except as docu Psychiatric: Reports no additional psychiatric complaints Endocrine: Reports no additional endocrine complaints Hematologic/Lymphatic: Reports no additional hematologic/lymphatic complaints Allergic/Immunologic: Reports no additional allergic/immunologic complaints Reports system reviewed and no additional complaints, except as documented and Reports Abnormal speech present [facility] Past Medical History Medical History Congestive heart failure Chronic atrial fibrillation Heart failure with reduced ejection fraction Acute on chronic systolic (congestive) heart failure CAD (coronary artery disease) Biventricular ICD (implantable cardioverter-defibrillator) in place Ischemic cardiomyopathy History of GI bleed Aortic aneurysm TIA (transient ischemic attack) Gout Obesity (BMI 30-39.9) GERD (gastroesophageal reflux disease) Hypercholesterolemia Type 2 diabetes mellitus with hyperglycemia Hypertension Surgical History History of cardiac defibrillator placement Coronary artery disease involving coronary bypass graft History of cholecystectomy Family History Family History Father CVD (cardiovascular disease) Hypertension Mother Cancer Social History Household Members: Children Housing: Apartment Do you presently have visiting nurse or other home services: No Alcohol intake: never Patient Tobacco Use Status: Former Tobacco user Years Smoked: quit 1985 e-Cigarette/Vaping Use: Never Used Second Hand Smoke Exposure: No Advance Directives: Yes Advance Directives on File: Yes Advance Directives Date on File: 06/19/22 service: Yes Current occupational status: retired Cognitive needs: No Hearing needs: No Vision needs: Yes Physical Exam Vital Signs: Vital Signs: Last Vital Signs Temp 97.5 F 05/21/23 20:42 Pulse 73 05/21/23 20:42 Resp 16 05/21/23 20:42 BP 106/57 L 05/21/23 20:42 Pulse Ox 95 05/21/23 20:42 O2 Del Method Room Air 05/21/23 20:42 BMI result Body Mass Index 26.3 Vital signs have been reviewed and appear to be correct. Blood pressure elevated. Heart rate normal. Respiratory rate normal. Temperature normal. Oxygen saturation normal. Appearance: Alert. Oriented X3. No acute distress. Head: Normal external exam. Normocephalic. Atraumatic. No Weaver signs noted. No raccoon eyes noted Eyes: PERRLA. EOMI. Conjunctiva and sclera normal. Eyelids normal. ENT: TM's Normal. Pharynx normal. Uvula midline. Moist mucous membranes. No trismus noted. No drooling noted. No muffled voice noted. Neck: Normal inspection. Neck supple. FROM. No adenopathy. Thyroid Normal. No meningeal signs. No neck mass noted. CVS: Normal heart rate and rhythm. Heart sound normal. No murmurs noted. Pulses normal throughout. Respiratory: No respiratory distress. Painless inspiration. Breath sounds normal. Bilateral basilar rales. Chest nontender. No accessory muscle usage noted or decreased air movement noted. Abdomen: Soft and nontender. Bowel sounds normal in all 4 quadrants. No distention noted. No organomegaly noted. No visible injury noted. Back: No CVA tenderness. Full range of motion noted. Skin: Skin warm and dry. Normal skin color. Normal skin turgor. No rashes/lesions/lacerations noted. Extremities: +2 bilateral lower extremity edema. Extremities exhibit normal range of motion. Extremities nontender. Neuro: Oriented X 3. Cranial nerve exam: II-XII are grossly intact No motor deficit. No sensory deficit. Reflexes normal. Course Course Course Narrative: This is a rapid medical exam. Deferred additional HPI, ROS, PE to primary provider. 82 year old male patient with a PMH of HFrEF (EF 30-35% s/p AICD), Chronic afib On Xarelto, CAD, HTN, Diabetes Mellitus type II, CKD, and BPH here with complaints of shortness of breath beginning today. Will obtain labs, EKG, chest x-ray, viral testing VSS Reevaluation(s) Reevaluation #1: 82-year-old male with a history of CHF, AFib, CKD patient is on Bumex at home came in complaining of dyspnea and PND. Patient found to be in acute CHF exacerbation and also was positive for COVID infection. Will admit the patient for further diuresis and Nitro. Time: 20:00 Medications Administered Discontinued Medications Generic Name Dose Route Start Last Admin Trade Name Freq PRN Reason Stop Dose Admin Bumetanide 1 mg 05/21/23 19:50 05/21/23 20:14 Bumetanide 1 Mg/4 Ml Vial IVPUSH 05/21/23 19:51 1 mg ONCE ONE Administration Protocol Nitroglycerin 0.5 inch 05/21/23 19:50 05/21/23 20:15 Nitroglycerin 2 % Oint 1 Gm Packet TRANSDERMA 05/21/23 19:51 Not Given ONCE ONE Medical Decision Making Differential Diagnosis Differential Diagnoses: The differential diagnosis associated with the presentation includes (Viral bronchitis, bacterial pneumonia, CHF, pleural effusion, severe electrolyte abnormality, severe anemia.) Admission/Observation Consideration of admission/observation: Escalation of care including admission/observation considered Consult Healthcare Provider Management of the patient was discussed with: Hospitalist (Dr. Dunne) Lab Data MDM Lab Attestation statement: I reviewed the patient's lab results. 05/21/23 16:48 05/21/23 16:48 Labs: Lab Results 05/21/23 05/21/23 Range/Units 16:47 16:48 WBC 9.4 (4.8-10.8) X10*3/uL RBC 3.53 L (4.60-5.80) X10*6/uL Hgb 10.9 L (14.0-18.0) g/dl Hct 33.3 L (42.0-52.0) % MCV 94.3 (80.0-98.0) fL MCH 30.9 (27.0-33.0) pg MCHC 32.7 (31.0-36.0) g/dl RDW 15.0 (11.0-16.0) % Plt Count 246 D (160-400) X10*3/uL MPV 10.7 (9.4-12.4) fL Immature Gran % (Auto) 0.5 H (0.0-0.4) % Neut % (Auto) 83.2 H (45-73) % Lymph % (Auto) 6.0 L (20-40) % Arthur % (Auto) 9.0 (2-11) % Eos % (Auto) 0.9 (0-4) % Baso % (Auto) 0.4 (0-2) % Lymph # (Auto) 0.6 L (1.2-4.9) X10*3/uL Arthur # (Auto) 0.8 (0.1-1.2) X10*3/uL Eos # (Auto) 0.1 (0.0-0.4) X10*3/uL Baso # (Auto) 0.0 (0.0-0.2) X10*3/uL Abs Immat Gran (auto) 0.05 H (0.00-0.03) X10*3/uL Absolute Neuts (auto) 7.8 (2.0-8.3) x10*3/uL Absolute Nucleated RBC 0.000 (0.0-0.012) X10*3/uL Nucleated RBC % (auto) 0.0 (0.0-0.2) /100WBC Sodium 138 (135-145) mmol/L Potassium 3.6 (3.3-5.1) mmol/L Chloride 99 (96-108) mmol/L Carbon Dioxide 28 (22-29) mmol/L Anion Gap 15 (12-20) BUN 46 H (9-16) mg/dL Creatinine 2.48 H (0.5-1.4) mg/dL Estim Creat Clear Calc 22.2 Estimated GFR 25 Random Glucose 199 H (60-115) mg/dL Calcium 9.2 (8.4-10.2) mg/dL Troponin I High Sens 27.6 (<3.5-35.0) ng/L B-Natriuretic Peptide 591 H (<100) pg/mL COVID-19 (LOGAN) Positive A (Negative) COVID-19 Clin Com See Note Independent Interpretation I performed an independent interpretation of an: Plain X-Ray (Chest: No change from previous x-ray.) Radiology Impression Discussion of test interpretation with radiology: I have reviewed the radiologist's reading. Discharge Plan Discharge Clinical Impression: COVID-19 CHF (congestive heart failure) Qualifiers: Heart failure type: systolic Heart failure chronicity: acute on chronic Qualified Code(s): I50.23 - Acute on chronic systolic (congestive) heart failure Patient Disposition: Admitted As Inpatient
--- NOTE | 2023-05-21 16:32 | ECG_ITS ---
Test Reason : DYSPNEA Blood Pressure : / mmHG Vent. Rate : 076 BPM Atrial Rate : 083 BPM P-R Int : 000 ms QRS Dur : 208 ms QT Int : 526 ms P-R-T Axes : 027 132 179 degrees QTc Int : 591 ms Ventricular-paced rhythm Biventricular pacemaker detected Abnormal ECG When compared with ECG of 09-JAN-2023 02:19, No significant change was found Referred By: Generic ED Physician Electronically Signed By:JUAN CURRY MD
[2023-05-21 16:52] LABS: MANUAL DIFF FLAG NO
[2023-05-21 17:00] LABS: Basophils Percent Auto 0.4 % (0-2); Eosinophils Absolute Auto 0.1 X10*3/uL (0.0-0.4); Eosinophils Percent Auto 0.9 % (0-4); Hematocrit 33.3 % (42.0-52.0); Hemoglobin 10.9 g/dl (14.0-18.0); Imm Gran Abs Auto 0.05 X10*3/uL (0.00-0.03); Imm Gran Pct Auto 0.5 % (0.0-0.4); Lymphocytes Absolute Auto 0.6 X10*3/uL (1.2-4.9); Mean Corpuscular HGB Conc 32.7 g/dl (31.0-36.0); Mean Corpuscular Hemoglobin 30.9 pg (27.0-33.0); Mean Corpuscular Volume 94.3 fL (80.0-98.0); Mean Platelet Volume 10.7 fL (9.4-12.4); Monocytes Absolute Auto 0.8 X10*3/uL (0.1-1.2); Neutrophils Absolute Auto 7.8 x10*3/uL (2.0-8.3); Neutrophils Percent Auto 83.2 % (45-73); Platelet Count 246 X10*3/uL (160-400); Red Blood Count 3.53 X10*6/uL (4.60-5.80); White Blood Count 9.4 X10*3/uL (4.8-10.8)
[2023-05-21 17:05] LABS: Anion Gap 15 (12-20); Blood Urea Nitrogen 46 mg/dL (9-16); Calcium 9.2 mg/dL (8.4-10.2); Carbon Dioxide 28 mmol/L (22-29); Chloride 99 mmol/L (96-108); Creatinine Clr Calc Pharmacy 22.2; Estimated Glomerular Filt Rate 25; Glucose Random 199 mg/dL (60-115); Potassium 3.6 mmol/L (3.3-5.1); Sodium 138 mmol/L (135-145)
[2023-05-21 17:07] LABS: COVID-19 Test Positive (Negative); IDNOW Serial# 08D9AD1C
[2023-05-21 17:13] LABS: B Type Natriuretic Peptide 591 pg/mL (<100); Troponin-I High Sensitivity 27.6 ng/L (<3.5-35.0)
[2023-05-21] MEDS: Bumetanide 1 MG/4 ML VIAL IVPUSH (20:14)
[2023-05-21 20:42] VITALS: BP 106/57; PULSE 73; RESP 16; TEMP 36.4; O2SAT 95
--- NOTE | 2023-05-21 22:24 | P.HPHOSP_ITS ---
History of Present Illness Date of Service: 05/21/23 Chief Complaint: shortness of breath This is an 82-year-old male with a past medical history of heart failure with reduced ejection fraction (30%), chronic AFib on Xarelto, CAD status post remote CABG, biventricular ICD in place, type 2 diabetes, GERD, history of GI bleed, aortic aneurysm who presents to the hospital with 3 days of worsening shortness of breath, worse lying and has been sleeping in recliner and even then not feeling much better. The symptoms feel like previous episodes of heart failue. Review of Systems 2 Review of Systems: Gen: no fever Resp: no sob, no cough CV: no chest, no NOLASCO, no leg edema GI: No n/v, no abd pain Neuro: No confusion [facility] Medical History Congestive heart failure Chronic atrial fibrillation Heart failure with reduced ejection fraction Acute on chronic systolic (congestive) heart failure CAD (coronary artery disease) Biventricular ICD (implantable cardioverter-defibrillator) in place Ischemic cardiomyopathy History of GI bleed Aortic aneurysm TIA (transient ischemic attack) Gout Obesity (BMI 30-39.9) GERD (gastroesophageal reflux disease) Hypercholesterolemia Type 2 diabetes mellitus with hyperglycemia Hypertension Family History Father CVD (cardiovascular disease) Hypertension Mother Cancer Surgical History History of cardiac defibrillator placement Coronary artery disease involving coronary bypass graft History of cholecystectomy Household Members: Children Housing: House Do you presently have visiting nurse or other home services: No Alcohol intake: never Patient Tobacco Use Status: Former Tobacco user Years Smoked: quit 1985 e-Cigarette/Vaping Use: Never Used Second Hand Smoke Exposure: No Use of substances other than those prescribed or required for medical reasons: No Currently Displaying Signs/Symptoms of Drug Intoxication Withdrawal: No Have you been hit, kicked, punched, or otherwise hurt by someone within the past year? If so, by whom?: No Do you feel safe in your current relationship?: Yes Is there a partner from a previous relationship who is making you feel unsafe now?: No Advance Directives: Yes Advance Directives on File: Yes Advance Directives Date on File: 06/19/22 Recently lost weight without trying: No How much weight loss: Not applicable Eating poorly because of decreased appetite: No Nutrition screen score: 0 Nutrition Risks: No Nutritional Risk Poor oral hygiene: No service: Yes Current occupational status: retired Cognitive needs: No Hearing needs: No Vision needs: Yes Meds Allergies Allergy/AdvReac Type Severity Reaction Status Date / Time dabigatran etexilate Allergy Unknown indigestion Verified 03/27/23 13:28 [Pradaxa] sacubitril [From ENTRESTO] Allergy Unknown FEELS LIKE Verified 03/27/23 13:28 HAVING A HEART ATTACK valsartan [From ENTRESTO] Allergy Unknown FEELS LIKE Verified 03/27/23 13:28 HAVING A HEART ATTACK Home Medications Medication Instructions Recorded Confirmed Last Taken Type multivitamin 1 tab PO DAILY 04/12/20 05/22/23 05/21/23 History gabapentin 100 mg capsule 100 mg PO BEDTIME 06/27/22 05/22/23 05/20/23 History tamsulosin 0.4 mg capsule (Flomax) 0.4 mg PO DAILY@1200 06/27/22 05/22/23 05/21/23 History meclizine 25 mg tablet 25 mg PO TID PRN Dizziness 01/09/23 05/22/23 05/21/23 History bumetanide 1 mg tablet See Rx Instructions PO DIRECTED 03/27/23 05/21/23 History bumetanide 1 mg tablet 1 mg PO DAILY@1200 05/22/23 05/22/23 Unknown History bumetanide 1 mg tablet 2 mg PO DAILY 05/22/23 05/22/23 Unknown History Physical Exam 2 Vital Signs and Narrative: Vital Signs: Last Vital Signs Temp 97.5 F 05/21/23 20:42 Pulse 73 05/21/23 20:42 Resp 16 05/21/23 20:42 BP 106/57 L 05/21/23 20:42 Pulse Ox 95 05/21/23 20:42 O2 Del Method Room Air 05/21/23 20:42 BMI result Body Mass Index 26.3 Const: Other: Constitutional: Alert, in no distress, Mental Status: Oriented to person, place and time. Eyes: Pupils are equal, round and reactive to light. Ear, Nose and Throat: Oropharynx clear, mucous membranes moist. Respiratory: Clear to auscultation. No wheezing, rales or rhonchi. Cardiovascular: S1 S2 regular. No murmurs, rubs or gallops. Gastrointestinal: Abdomen soft, non-tender, non-distended. Normal bowel sounds.? Neurologic: Cranial nerves II-XII grossly intact. No focal neurological deficits. Moves all extremities spontaneously.? Skin: No rashes or lesions.? Musculoskeletal: No cyanosis or clubbing. Psychiatric: Normal mood and affect? Results Labs 05/21/23 16:48 05/22/23 07:00 Imaging Radiologist's Impressions: Impressions Chest X-Ray 05/21/23 16:54 IMPRESSION: Hyperinflated lungs with prominent bilateral interstitial markings similar to previous study. No change in the pacer electrodes and postsurgical changes from previous study. Assessment and Plan (1) COVID-19: Status: Acute (2) CHF (congestive heart failure): Qualifiers: Heart failure chronicity: acute on chronic Heart failure type: systolic Qualified Code(s): I50.23 - Acute on chronic systolic (congestive) heart failure Status: Acute Plan 82-year-old male with history HFrEF, chronic AFib on Coumadin, biventricular ICD, diabetes, hypertension presenting with shortness and clinical presentation most c/w acute exacerbation of heart failure, on top of covid-19, however no hypoxia Acute on chronic HFrEF exacerbation Given 1 mg of IV Bumex in the ED, -continue Bumex 1 mg iv bid, on oral 1 mg at home -monitor weight, i/o,weight and low salt diet. -cardiology to advise on his management given his complex hisotry Covid-19, no hyoxia and hence, treat symptomatically, add decadron if becomes hypoxic CKD stage 4, serum cr within his baseline, monitor while on iv diuretics Chronic A. Fib, rate is controlled, presently not on any rate control med -continue xarelto when med rec completed DM hold oral meds (sitagliptin and glimeperide) POCs, sliding scale and diabetic diet HTN--BP borderline low, takes Hydralazine 50 tid, hold , and restart at lower dose if necessary HLD--statin BPH-Flomax Full Code DVT pptx, Xarelto admission for at least 2 midnights for management of acute exacerbation of heart failure with IV diuretics and close monitoring of bmp, fluid status Quality Stroke Does the patient have a stroke diagnosis?: No VTE Prior VTE?: No VTE Risk Level:: Medical - moderate - high VTE Device Contraindication: Treatment Not Indicated VTE Drug Contraindication: N/A - Med Ordered
[2023-05-22] MEDS: rOPINIRole HCL 0.25 MG TABLET PO ×3 (02:11→21:58)
[2023-05-22 02:39] VITALS: BP 136/63; PULSE 72; RESP 20; TEMP 36.3; O2SAT 97
[2023-05-22 07:42] LABS: Alanine Aminotransferase 17 U/L (0-40); Albumin Level 3.4 g/dL (3.5-5.0); Alkaline Phosphatase 107 U/L (39-117); Anion Gap 14 (12-20); Aspartate Amino Transferase 24 U/L (5-37); Bilirubin Total 1.7 mg/dL (0.0-1.0); Blood Urea Nitrogen 47 mg/dL (9-16); Carbon Dioxide 29 mmol/L (22-29); Chloride 101 mmol/L (96-108); Creatinine Clr Calc Pharmacy 22.8; Estimated Glomerular Filt Rate 26; Glucose Random 86 mg/dL (60-115); Potassium 3.6 mmol/L (3.3-5.1); Sodium 140 mmol/L (135-145); Total Protein 7.3 g/dL (6.5-8.0)
[2023-05-22 08:00] VITALS: BP 107/45; PULSE 72; RESP 18; TEMP 36.2; O2SAT 90
[2023-05-22 08:07] LABS: Glucose, Whole Blood 154 mg/dL (60-115)
[2023-05-22] MEDS: Bumetanide 1 MG/4 ML VIAL IVPUSH ×2 (08:28→16:49)
[2023-05-22] MEDS: Multivitamin TABLET 1 TAB PO (08:28)
[2023-05-22] MEDS: Nitroglycerin 0.4 MG PATCH.TD24 TRANSDERMA (08:29)
[2023-05-22] MEDS: 0.9 % Sodium Chloride Flush 3 ML SYRINGE IVFLUSH ×3 (08:29→22:01)
[2023-05-22] MEDS: Colchicine 0.6 MG TABLET 0.3 MG PO (08:29)
[2023-05-22] MEDS: allopurinoL 100 MG TABLET PO (08:29)
[2023-05-22] MEDS: Insulin Lispro 100 UNIT/ML 3 ML VIAL SUBCUT (08:30)
--- NOTE | 2023-05-22 08:32 | MHC.CM.PN ---
Addendum entered by Ange De Dios RN 05/22/23 13:06: CM RECEIVED CALL BACK FROM PT'S SON GILDARDO, WHO CONFIRMS BELOW INFO, GILDARDO IS ASKING FOR PT TO BE RETESTED FOR COVID19 HE HAD A FALSE POSITIVE LAST ADMISSION. Original Note: /IMM 05/22/23, EMR REVIEWED, PT ADMITTED W/COVID 19 AND HEART FAILURE, D/T COVID19 CM ATTEMPTED TO CONTACT PT VIA CELL PHONE W/NO ANSWER, CM ALSO ATTEMPTED TO CONTACT PT'S SON/[facility] GILDARDO AT 0825 AT NUMBER ON FILE HOWEVER NO ANSWER AND DETAILED MESSAGE LEFT. PER PREVIOUS RECORDS PT'S 2 ADULT SONS LIVE W/HIM, PT IS INDEP W/ALL CARE, DENIES USE OF DME/HOME SERVICES, PT FULLY VACCINATED FOR COVID 19, HCP AND PCP ON FILE ARE CORRECT. DCP: ANTIC HOME SELF-CARE WHEN MEDICALLY CLEARED, FAMILY FOR TRANSPORT
--- NOTE | 2023-05-22 08:42 | P.PNIM_ITS ---
Subjective Subjective Date of Service: 05/22/23 Interval History: Seen in follow up for CHF exacerbation, COVID-19 Interval History: Still reporting orthopnea, NOLASCO. No chest pain, edema. Not much output per patient but has not been well documented Physical Exam 2 Vital Signs: Vital Signs: Last Vital Signs Temp 97.1 F 05/22/23 08:00 Pulse 72 05/22/23 08:00 Resp 18 05/22/23 08:00 BP 107/45 L 05/22/23 08:00 Pulse Ox 72 L 05/22/23 08:00 O2 Del Method Room Air 05/22/23 08:00 BMI result Body Mass Index 26.3 Constitutional - Awake and Alert, No apparent distress Eyes - PERRLA, EOMI Neck - +hepatojugular reflex Cardiovascular - S1S2, RRR, No edema Respiratory - Normal lung expansion, Normal respiratory effort, No respiratory distress, CTA bilaterally Gastrointestinal - NT / ND; +BS; No rebound or guarding Extremities - no calf tenderness bilaterally, no swelling Skin - Warm/Dry Neurological - Alert & oriented x3 Psychological - Appropriate affect Objective Data Active Medications Acetaminophen (Acetaminophen 325 Mg Tablet) 650 mg PO Q6H PRN PRN Reason: Pain, Mild (Pain Scale 1-3) Al Hydroxide/Mg Hydroxide (Magnesium Hydrox/Alum Hydrox 30 Ml Oral.Susp) 30 ml PO Q4H PRN PRN Reason: Heartburn/Nausea Allopurinol (Allopurinol 100 Mg Tablet) 100 mg PO DAILY [facility] Last Admin: 05/22/23 08:29 Dose: 100 mg Documented By: SHELBY Atorvastatin Calcium (Atorvastatin Calcium 80 Mg Tablet) 80 mg PO BEDTIME [facility] Bumetanide (Bumetanide 1 Mg/4 Ml Vial) 1 mg IVPUSH BID@0900,1700 [facility]; Protocol Last Admin: 05/22/23 08:28 Dose: 1 mg Documented By: SHELBY Colchicine (Colchicine 0.6 Mg Tablet) 0.3 mg PO DAILY [facility] Last Admin: 05/22/23 08:29 Dose: 0.3 mg Documented By: SHELBY Dextrose (Dextrose 50 % 25 Gm/50 Ml Syringe) 25 gm IVPUSH Q15M PRN; Protocol PRN Reason: per Hypoglycemia Standing Ord. Gabapentin (Gabapentin 100 Mg Capsule) 100 mg PO BEDTIME [facility] Glucose (Glucose Gel 15 Gm Gel..Gram.) 15 gm PO Q15M PRN; Protocol PRN Reason: per Hypoglycemia Standing Ord. Insulin Human Lispro (Insulin Lispro 100 Unit/Ml 3 Ml Vial) 0 unit SUBCUT QIDACHS [facility]; Protocol Last Admin: 05/22/23 08:30 Dose: 2 unit Documented By: SHELBY Meclizine HCl (Meclizine Hcl 25 Mg Tablet) 25 mg PO TID PRN PRN Reason: Dizziness Melatonin (Melatonin 3 Mg Tablet) 3 mg PO BEDTIME PRN PRN Reason: Insomnia Multivitamins/Vitamin C (Multivitamin Tablet) 1 tab PO DAILY [facility] Last Admin: 05/22/23 08:28 Dose: 1 tab Documented By: SHELBY Nitroglycerin (Nitroglycerin 0.4 Mg Patch.Td24) 0.4 mg TRANSDERMA DAILY [facility]; Protocol Last Admin: 05/22/23 08:29 Dose: 0.4 mg Documented By: SHELBY Ondansetron HCl (Ondansetron Hcl 4 Mg/2 Ml Vial) 4 mg IVPUSH Q8H PRN PRN Reason: Nausea and Vomiting Ropinirole HCl (Ropinirole Hcl 0.25 Mg Tablet) 0.25 mg PO BID [facility] Last Admin: 05/22/23 08:29 Dose: 0.25 mg Documented By: SHELBY Sodium Chloride (0.9 % Sodium Chloride Flush 3 Ml Syringe) 3 ml IVFLUSH QSHIFT [facility] Last Admin: 05/22/23 08:29 Dose: 3 ml Documented By: SHELBY Tamsulosin HCl (Tamsulosin Hcl 0.4 Mg Capsule) 0.4 mg PO DAILY@1200 [facility] Labs 05/21/23 16:48 05/22/23 07:00 Labs: Laboratory Results - last 24 hr 05/21/23 05/21/23 05/22/23 16:47 16:48 07:00 MCV 94.3 MCH 30.9 MCHC 32.7 RDW 15.0 Plt Count 246 D MPV 10.7 Immature Gran % (Auto) 0.5 H Neut % (Auto) 83.2 H Lymph % (Auto) 6.0 L [place] % (Auto) 9.0 Eos % (Auto) 0.9 Baso % (Auto) 0.4 Lymph # (Auto) 0.6 L [place] # (Auto) 0.8 Eos # (Auto) 0.1 Baso # (Auto) 0.0 Abs Immat Gran (auto) 0.05 H Absolute Neuts (auto) 7.8 Absolute Nucleated RBC 0.000 Nucleated RBC % (auto) 0.0 Hold Purple Top SEE NOTE Anion Gap 15 14 Estim Creat Clear Calc 22.2 22.8 Estimated GFR 25 26 POC Glucose Random Glucose 199 H 86 Calcium 9.2 9.0 Total Bilirubin 1.7 H AST 24 ALT 17 Alkaline Phosphatase 107 B-Natriuretic Peptide 591 H Total Protein 7.3 Albumin 3.4 L COVID-19 ([facility]) Positive A COVID-19 Clin Com See Note 05/22/23 07:56 MCV MCH MCHC RDW Plt Count MPV Immature Gran % (Auto) Neut % (Auto) Lymph % (Auto) [place] % (Auto) Eos % (Auto) Baso % (Auto) Lymph # (Auto) [place] # (Auto) Eos # (Auto) Baso # (Auto) Abs Immat Gran (auto) Absolute Neuts (auto) Absolute Nucleated RBC Nucleated RBC % (auto) Hold Purple Top Anion Gap Estim Creat Clear Calc Estimated GFR POC Glucose 154 H Random Glucose Calcium Total Bilirubin AST ALT Alkaline Phosphatase B-Natriuretic Peptide Total Protein Albumin COVID-19 ([facility]) COVID-19 Clin Com Assessment and Plan (1) CHF (congestive heart failure): Status: Acute (2) COVID-19: Status: Acute (3) MARK (acute kidney injury): Status: Acute Plan 82-year-old male with history HFrEF, chronic AFib on Coumadin, biventricular ICD, diabetes, hypertension presenting with shortness and clinical presentation most c/w acute exacerbation of heart failure, on top of covid-19, however no hypoxia. Limited improvement in symptoms with limited urinary output on current dose bumex #Acute decompensated HFrEF -Echo performed today showing moderately dilated left ventricle with severely reduced LV systolic function with EF 20-25% with regional wall motion abnormality consistent with ischemic cardiomyopathy. There was moderately dilated RV with mildly reduced RV systolic function. Severe biatrial enlargement. Moderate eccentric mitral regurg due to restricted mitral leaflet mobility secondary to ischemic cardiomyopathy. Mild aortic stenosis. Moderately elevated RV systolic pressure was severely elevated right atrial pressures -Conversation with Dr. Montanez and Dr. Del Toro. Change Bumex IV push to Bumex IV drip with close renal monitoring -monitor weight, i/o,weight and low salt diet. -Cardiology input appreciated #Covid-19- asymptomaitc - no hyoxia and hence, treat symptomatically, add decadron if becomes hypoxic #MARK on CKD stage 4 -Appreciate nephrology input -Avoid nephrotoxins -I&O -Low sodium diet -Follow BMP #Chronic A. Fib- rate is controlled -presently not on any rate control med -continue xarelto #Non insulin dependent type 2 diabetes- without hyperglycemia -hold PO meds (sitagliptin and glimeperide) -POCs, sliding scale and diabetic diet #HTN -BP improving, but remains somewhat soft -continue holding hydralazine. Consider restarting at lower dose if necessary #HLD -statin #BPH -Flomax Full Code DVT pptx, Xarelto Pt requires ongoing inpt stay for management of decompensated congestive heart failure on bumex drip requiring close cardiac monitoring and monitoring of renal function with expert consulation as well as monitoring of fluid status Quality Stroke Does the patient have a stroke diagnosis?: No VTE Prior VTE?: No VTE Risk Level:: Medical - moderate - high VTE Device Contraindication: Treatment Not Indicated VTE Drug Contraindication: N/A - Med Ordered
--- NOTE | 2023-05-22 10:21 | PHA.MEDREC ---
Pharmacy Consult ? Medication Reconciliation Pharmacy has completed the medication reconciliation. Pt no longer on isosorbide Luis
--- NOTE | 2023-05-22 11:08 | CA_ITS ---
Transthoracic Echocardiogram Patient (Last, First, Middle): Ethan Macias D Gender: Male Date of : 1940 Age: 82 Procedure Date: 05/22/2023 Procedure Type: Transthoracic Echocardiogram Location: [facility] [place] Height: 170.18 cm Weight: 75.75 kg BSA: 1.87 m2 Heart Rate: bpm BP: 107 / 45 mmHg Therapeutic Recreation Assistant: JOSE R Ewing MD: Ivette JACKSON Hearing Dog Trainer: Chevy Montanez MD Symptoms: Chr exac Study Quality: Fair ECG Rhythm: Atrial Fibrillation Conclusions: - 1. Moderately dilated left ventricle with severely reduced LV ejection fraction of 20-25% with regional wall motion abnormality consistent with ischemic cardiomyopathy 2. Moderately dilated right ventricle with mildly reduced RV systolic function 3. Severe biatrial enlargement 4. Moderate eccentric mitral regurgitation due to restricted mitral leaflet mobility secondary to ischemic cardiomyopathy 5. Mild aortic stenosis 6. Moderately elevated right ventricular systolic pressure with severely elevated right atrial pressures 7. Mildly dilated ascending aorta at 3.9 cm Findings Left Ventricle Moderately increased left ventricular cavity size. There is normal left ventricular wall thickness. The left ventricular systolic function is severely decreased. The visually estimated ejection fraction is between 20 25%. Spectral Doppler is indicative of a pseudonormal filling pattern. Peak GLS is -8.4%, markedly reduced. Wall Motion Rest Echo Findings The entire apex, anterior wall, anteroseptal wall, anterolateral wall, and mid inferoseptal segment are hypokinetic. The inferolateral wall, the basal inferior, mid inferior, and basal inferoseptal segments are akinetic. Right Ventricle Moderately increased right ventricular cavity size. There is mildly decreased right ventricular systolic function. There is an ICD wire seen in the right ventricle. Atria The left atrium is severely dilated. There is no evidence of interatrial shunt. The right atrium is severely dilated. A pacemaker wire is identified in the right atrium. Aortic Valve There is mild calcification of the aortic valve. There is mild thickening of the aortic valve. There is mild aortic valve stenosis. The peak aortic velocity is 1.81 m/s with a calculated peak gradient of 13 mmHg. The mean gradient is 7 mmHg. The aortic valve area is 1.81 cm2. Mitral Valve There is mild anterior and severe posterior mitral leaflet thickening. The posterior mitral leaflet has restricted mobility. There is moderate mitral valve regurgitation. The mitral regurgitation jet is directed posteriorly. There is no mitral valve stenosis. Pulmonic Valve The pulmonic valve is likely normal. Tricuspid Valve Normal tricuspid valve structure. There is mild to moderate tricuspid valve regurgitation. Significantly elevated right atrial pressure. Moderate pulmonary hypertension is present. Great Vessels The pulmonary artery was not well visualized. There is mild dilatation of the ascending aorta measuring 3.90 cm. Venous The inferior vena cava is moderately dilated and collapses less than 50% with inspiration. Pericardium/Pleural There is no evidence of pericardial effusion. Prior Study Comparison Changes noted compared to prior study dated: 06/19/2022. The mitral regurgitation does not appear to be as severe. RV systolic pressure are moderately elevated on this study Measurements 2D Linear Measurements IVSd: 1.01 0.6-0.9/0.6-1.0 cm LVIDd: 6.46 3.9-5.3/4.2-5.9 cm LVIDd Index: 3.45 2.4-3.2/2.2-3.1 cm/m2 LVIDs: 5.71 2.0-3.6 cm LVPWd: 1.09 0.7-1.1 cm Ao Root: 3.80 2.1-3.5 cm LA Diam: 4.70 2.7-3.8/3.0-4.0 cm LAIDs Index: 2.51 1.5-2.3 cm/m2 LV Mass: 371.94 67-162/88-224 g LV Mass Index: 198.90 43-95/49-115 g/m2 LVOT Diam: 2.00 3.0+(-)1.3 cm 2D Systolic Function EF 4C: 20.70 >55% EF 2C: 28.90 >55% EF BiP: 25.20 >55% Mitral Valve MV Pk E: 0.97 MV Decel Time: 192.00 E'Lateral: 7.27 E'Medial: 5.52 E/E' Med: 17.60 E/E' Lat: 13.40 PHT: 56.00 MVA PHT: 3.93 Decel [place]: 5.08 MR Vol - PW Dopp: 2.76 MR VTI: 1.38 MR ERO: 2.00 MR Alias Dean: 0.39 MR RAD: 0.20 Aortic Valve AoV Pk Dean: 1.81 AoV Mn Dean: 1.23 AoV VTI: 0.39 AoV Pk Grad: 13.00 Aov Mn Grad: 7.00 EDITH Cont.VTI: 1.81 LVOT LVOT Pk Dean: 1.14 LVOT Mn Dean: 0.75 LVOT VTI: 0.23 LVOT Pk Grad: 5.00 LVOT Mn Grad: 3.00 LVOT Diam: 2.00 LVOT Area: 3.14 Diastolic Function MV Pk E: 0.97 E'Medial: 5.52 E/E' Med: 17.60 E' Laterial: 7.27 E/E' Lat: 13.40 Right Ventricle TAPSE (mm): 16.00 TVS' Dean: 10.00 Tricuspid Valve TR Pk Dean: 2.56 TR Pk Grad: 40.00 RA Press: 15.00 RVSP: 55.00 Great Vessels Aorta Ao Root-2D: 3.80 2.0-3.7 cm Ao Asc: 3.90 2.1-3.4 cm Pulmonary Valve PV Pk Dean: 0.98 Peak PV Grad: 4.00 Updated in Other Vendor System with Status of Final Chevy Montanez MD electronically signed on 05/22/2023 4:39:55 PM with status of Final
[2023-05-22 11:25] VITALS: BP 109/51; PULSE 72; RESP 18; TEMP 36.7; O2SAT 95
[2023-05-22 11:35] LABS: Creatinine Urine 85.79 mg/dL
[2023-05-22] MEDS: Tamsulosin HCL 0.4 MG CAPSULE PO (11:55)
[2023-05-22 11:57] LABS: Glucose, Whole Blood 123 mg/dL (60-115)
--- NOTE | 2023-05-22 13:02 | PM.CNNEP ---
History of Present Illness Reason for Consult Consult date: 05/23/23 Reason for consult: CKD/MARK Chief Complaint Chief complaint: heart failure, covid 19 History of Present Illness Narrative: 82-year-old male with a l history of heart failure with reduced ejection fraction (30%), chronic AFib on Xarelto, CAD status post remote CABG, biventricular ICD in place, type 2 diabetes, GERD, history of GI bleed, aortic aneurysm who presents to the hospital with 3 days of worsening shortness of breath, worse lying and has been sleeping in recliner and even then not feeling much better. The symptoms feel like previous episodes of heart failure. He has a history of CKD. He has never seen a cook railroad. Baseline serum creatinine is around 2.0 mg/dL At the time of admission creatinine is 2.48. Review of Systems Constitutional: Denies fever(s) and Denies weight loss Cardiovascular: Denies chest pain, Reports dyspnea on exertion and Reports orthopnea Respiratory: Denies cough, Denies hemoptysis and Reports dyspnea on exertion Gastrointestinal: Denies abdominal pain, Denies diarrhea and Denies nausea Musculoskeletal: Denies back pain Denies focal weakness [facility] Past Medical History Medical History (Updated 05/22/23 @ 17:49 by Chevy Montanez MD) Chronic atrial fibrillation Congestive heart failure Heart failure with reduced ejection fraction Acute on chronic systolic (congestive) heart failure CAD (coronary artery disease) Biventricular ICD (implantable cardioverter-defibrillator) in place Ischemic cardiomyopathy History of GI bleed Aortic aneurysm TIA (transient ischemic attack) Gout Obesity (BMI 30-39.9) GERD (gastroesophageal reflux disease) Hypercholesterolemia Type 2 diabetes mellitus with hyperglycemia Hypertension Family History Family History Father CVD (cardiovascular disease) Hypertension Mother Cancer Surgical History Surgical History History of cardiac defibrillator placement Coronary artery disease involving coronary bypass graft History of cholecystectomy Social History Social History Household Members: Children Housing: House Do you presently have visiting nurse or other home services: No Alcohol intake: never Comment: pt refused fall prevention measures Patient Tobacco Use Status: Former Tobacco user Years Smoked: quit 1985 e-Cigarette/Vaping Use: Never Used Second Hand Smoke Exposure: No Advance Directives Date on File: 06/19/22 service: Yes Current occupational status: retired Cognitive needs: No Hearing needs: No Vision needs: Yes Meds Allergies Allergy/AdvReac Type Severity Reaction Status Date / Time dabigatran etexilate Allergy Unknown indigestion Verified 03/27/23 13:28 [Pradaxa] sacubitril [From ENTRESTO] Allergy Unknown FEELS LIKE Verified 03/27/23 13:28 HAVING A HEART ATTACK valsartan [From ENTRESTO] Allergy Unknown FEELS LIKE Verified 03/27/23 13:28 HAVING A HEART ATTACK Active Medications: Current Medications Acetaminophen (Acetaminophen 325 Mg Tablet) 650 mg PO Q6H PRN PRN Reason: Pain, Mild (Pain Scale 1-3) Al Hydroxide/Mg Hydroxide (Magnesium Hydrox/Alum Hydrox 30 Ml Oral.Susp) 30 ml PO Q4H PRN PRN Reason: Heartburn/Nausea Allopurinol (Allopurinol 100 Mg Tablet) 50 mg PO Q48H [facility] Atorvastatin Calcium (Atorvastatin Calcium 80 Mg Tablet) 80 mg PO BEDTIME [facility] Bumetanide (Bumetanide 1 Mg/4 Ml Vial) 1 mg IVPUSH BID@0900,1700 [facility]; Protocol Last Admin: 05/22/23 08:28 Dose: 1 mg Colchicine (Colchicine 0.6 Mg Tablet) 0.3 mg PO DAILY [facility] Last Admin: 05/22/23 08:29 Dose: 0.3 mg Dextrose (Dextrose 50 % 25 Gm/50 Ml Syringe) 25 gm IVPUSH Q15M PRN; Protocol PRN Reason: per Hypoglycemia Standing Ord. Gabapentin (Gabapentin 100 Mg Capsule) 100 mg PO BEDTIME [facility] Glucose (Glucose Gel 15 Gm Gel..Gram.) 15 gm PO Q15M PRN; Protocol PRN Reason: per Hypoglycemia Standing Ord. Insulin Human Lispro (Insulin Lispro 100 Unit/Ml 3 Ml Vial) 0 unit SUBCUT QIDACHS [facility]; Protocol Last Admin: 05/22/23 11:56 Dose: Not Given Meclizine HCl (Meclizine Hcl 25 Mg Tablet) 25 mg PO TID PRN PRN Reason: Dizziness Melatonin (Melatonin 3 Mg Tablet) 3 mg PO BEDTIME PRN PRN Reason: Insomnia Multivitamins/Vitamin C (Multivitamin Tablet) 1 tab PO DAILY [facility] Last Admin: 05/22/23 08:28 Dose: 1 tab Nitroglycerin (Nitroglycerin 0.4 Mg Patch.Td24) 0.4 mg TRANSDERMA DAILY [facility]; Protocol Last Admin: 05/22/23 08:29 Dose: 0.4 mg Ondansetron HCl (Ondansetron Hcl 4 Mg/2 Ml Vial) 4 mg IVPUSH Q8H PRN PRN Reason: Nausea and Vomiting Rivaroxaban (Rivaroxaban 15 Mg Tablet) 15 mg PO DAILY@1800 [facility] Ropinirole HCl (Ropinirole Hcl 0.25 Mg Tablet) 0.25 mg PO BID [facility] Last Admin: 05/22/23 08:29 Dose: 0.25 mg Sodium Chloride (0.9 % Sodium Chloride Flush 3 Ml Syringe) 3 ml IVFLUSH QSHIFT [facility] Last Admin: 05/22/23 08:29 Dose: 3 ml Tamsulosin HCl (Tamsulosin Hcl 0.4 Mg Capsule) 0.4 mg PO DAILY@1200 [facility] Last Admin: 05/22/23 11:55 Dose: 0.4 mg Home Medications Medication Instructions Recorded Confirmed Last Taken Type multivitamin 1 tab PO DAILY 04/12/20 05/22/23 05/21/23 History gabapentin 100 mg capsule 100 mg PO BEDTIME 06/27/22 05/22/23 05/20/23 History tamsulosin 0.4 mg capsule (Flomax) 0.4 mg PO DAILY@1200 06/27/22 05/22/23 05/21/23 History meclizine 25 mg tablet 25 mg PO TID PRN Dizziness 01/09/23 05/22/23 05/21/23 History bumetanide 1 mg tablet See Rx Instructions PO DIRECTED 03/27/23 05/21/23 History bumetanide 1 mg tablet 1 mg PO DAILY@1200 05/22/23 05/22/23 Unknown History bumetanide 1 mg tablet 2 mg PO DAILY 05/22/23 05/22/23 Unknown History Physical Exam Vital Signs: Last Vital Signs Temp 98.1 F 05/22/23 11:25 Pulse 72 05/22/23 11:25 Resp 18 05/22/23 11:25 BP 109/51 L 05/22/23 11:25 Pulse Ox 95 05/22/23 11:25 O2 Del Method Room Air 05/22/23 11:25 BMI result Body Mass Index 26.3 Const General: comfortable Nutritional Appearance: well nourished Orientation/consciousness: patient oriented x3 HEENT Head: No normal to inspection Mouth: moist mucous membranes Neck Neck: Yes supple and Yes no JVD Resp Auscultation: no rales Cardio Jugular venous distension: no JVD Palpation: no palpable S3 and no palpable S4 Heart sounds: no rubs GI Palpation (GI): Soft to palpation and nontender Percussion: No Fluid wave present General: Yes no CVA tenderness Back/Spine/Pelvis Back: no CVA tenderness Skin General skin exam: no rashes or lesions noted Neuro General: patient oriented x3 Extrem General: Yes no pedal edema and No clubbing Results Lab Results 05/21/23 16:48 05/23/23 06:13 Lab results: Chemistry 05/21/23 05/22/23 16:48 07:00 Sodium 138 140 Potassium 3.6 3.6 Carbon Dioxide 28 29 BUN 46 H 47 H Creatinine 2.48 H 2.41 H Calcium 9.2 9.0 Hematology 05/21/23 16:48 WBC 9.4 Hgb 10.9 L Plt Count 246 D Urine Studies 05/22/23 11:20 Urine Creatinine 85.79 tested positive for COVID-19 Chest x-ray does not show an any pulmonary vascular congestion Assessment and Plan (1) Chronic kidney disease (CKD) stage G3b/A1, moderately decreased glomerular filtration rate (GFR) between 30-44 mL/min/1.73 square meter and albuminuria creatinine ratio less than 30 mg/g: Status: Acute Plan MARK superimposed on CKD. MARK is most likely due to hypoperfusion. He has underlying CKD in the setting of congestive heart failure and diabetes mellitus. In the past urinalysis revealed 2+ proteinuria by dipstick. He might have underlying diabetic kidney disease. Recommendations Check urine for sodium creatinine protein. Hold diuretics for now and avoid hypotension. Continue to avoid nephrotoxic agents. Renal function should improve once his hemodynamics improve. Obtain renal ultrasonogram to assess echogenicity and to rule out hydro nephrosis. She will follow along with the team. Thank you Addendum. Discussed with Cardiology who provides to diurese him. Agree with diuresis for now and watch renal function closely Procedures Date of Service Date of Service: 05/23/23
[2023-05-22 15:30] VITALS: BP 131/63; PULSE 73; RESP 20; TEMP 36.6; O2SAT 95
[2023-05-22 16:24] LABS: Glucose, Whole Blood 102 mg/dL (60-115)
[2023-05-22] MEDS: Rivaroxaban 15 MG TABLET PO (16:49)
--- NOTE | 2023-05-22 17:40 | P.CONCA_ITS ---
History of Present Illness History of Present Illness Date of Service: 05/22/23 Requesting physician: Ivette Gotti Consult reason: congestive heart failure Chief complaint: heart failure, covid 19 Narrative: I was consulted to see Ethan in cardiology consultation today as he came to the hospital with worsening orthopnea. Patient has not noticed any other signs of fluid gain with no weight gain, abdominal distention, leg edema. He comes to the hospital as he says he is getting more more exertionally short of breath and not able to lay flat as he would get significantly short of breath. Not noticed to be significantly hypoxemic. Admission BNP in the 500 range which is lower than his prior BNP. He has not noticed any jumping of his heart related to pacing therapy related to the LV. We had reduced his LV thresholds given his discomfort with LV pacing. He was incidentally noted to have COVID infection. Is also noted to have elevated creatinine compared to his baseline. No new bleeding issues or neurologic events. Denies any chest discomfort. He denies any palpitations, lightheadedness. Review of Systems 2 Constitutional: Constitutional: Reports no additional constitutional complaints Cardiovascular: Cardiovascular: Denies chest pain, Denies leg edema, Denies lightheadedness, Denies Loss of Consciousness, Denies palpitations, Reports dyspnea on exertion and Reports orthopnea Respiratory: Respiratory: Reports no additional respiratory complaints, Denies cough, Reports dyspnea on exertion and Denies wheezing Gastrointestinal: Gastrointestinal: Reports no additional gastrointestinal complaints Musculoskeletal: Musculoskeletal: Reports no additional musculoskeletal complaints Neurologic: Reports system reviewed and no additional complaints, except as documented Psychiatric: Psychiatric: Reports no additional psychiatric complaints Endocrine: Endocrine: Denies palpitations Hematologic/Lymphatic: Hematologic/Lymphatic: Reports no additional hematologic/lymphatic complaints Allergic/Immunologic: Allergic/Immunologic: Denies wheezing [facility] Past Medical History Medical History (Updated 05/22/23 @ 17:49 by Chevy Montanez MD) Chronic atrial fibrillation Congestive heart failure Heart failure with reduced ejection fraction Acute on chronic systolic (congestive) heart failure CAD (coronary artery disease) Biventricular ICD (implantable cardioverter-defibrillator) in place Ischemic cardiomyopathy History of GI bleed Aortic aneurysm TIA (transient ischemic attack) Gout Obesity (BMI 30-39.9) GERD (gastroesophageal reflux disease) Hypercholesterolemia Type 2 diabetes mellitus with hyperglycemia Hypertension Family History Family History Father CVD (cardiovascular disease) Hypertension Mother Cancer Surgical History Surgical History History of cardiac defibrillator placement Coronary artery disease involving coronary bypass graft History of cholecystectomy Social History Social History Household Members: Children Housing: House Do you presently have visiting nurse or other home services: No Alcohol intake: never Patient Tobacco Use Status: Former Tobacco user Years Smoked: quit 1985 e-Cigarette/Vaping Use: Never Used Second Hand Smoke Exposure: No Advance Directives Date on File: 06/19/22 service: Yes Current occupational status: retired Cognitive needs: No Hearing needs: No Vision needs: Yes Meds Allergies Allergy/AdvReac Type Severity Reaction Status Date / Time dabigatran etexilate Allergy Unknown indigestion Verified 03/27/23 13:28 [Pradaxa] sacubitril [From ENTRESTO] Allergy Unknown FEELS LIKE Verified 03/27/23 13:28 HAVING A HEART ATTACK valsartan [From ENTRESTO] Allergy Unknown FEELS LIKE Verified 03/27/23 13:28 HAVING A HEART ATTACK Active Medications: Current Medications Acetaminophen (Acetaminophen 325 Mg Tablet) 650 mg PO Q6H PRN PRN Reason: Pain, Mild (Pain Scale 1-3) Al Hydroxide/Mg Hydroxide (Magnesium Hydrox/Alum Hydrox 30 Ml Oral.Susp) 30 ml PO Q4H PRN PRN Reason: Heartburn/Nausea Allopurinol (Allopurinol 100 Mg Tablet) 50 mg PO Q48H [facility] Atorvastatin Calcium (Atorvastatin Calcium 80 Mg Tablet) 80 mg PO BEDTIME [facility] Colchicine (Colchicine 0.6 Mg Tablet) 0.3 mg PO DAILY [facility] Last Admin: 05/22/23 08:29 Dose: 0.3 mg Dextrose (Dextrose 50 % 25 Gm/50 Ml Syringe) 25 gm IVPUSH Q15M PRN; Protocol PRN Reason: per Hypoglycemia Standing Ord. Gabapentin (Gabapentin 100 Mg Capsule) 100 mg PO BEDTIME [facility] Glucose (Glucose Gel 15 Gm Gel..Gram.) 15 gm PO Q15M PRN; Protocol PRN Reason: per Hypoglycemia Standing Ord. Bumetanide 25 mg/ IV (Miscellaneous Supplies) 100 mls @ 2 mls/hr IVCONT .Q24H [facility] Insulin Human Lispro (Insulin Lispro 100 Unit/Ml 3 Ml Vial) 0 unit SUBCUT QIDACHS [facility]; Protocol Last Admin: 05/22/23 16:30 Dose: Not Given Meclizine HCl (Meclizine Hcl 25 Mg Tablet) 25 mg PO TID PRN PRN Reason: Dizziness Melatonin (Melatonin 3 Mg Tablet) 3 mg PO BEDTIME PRN PRN Reason: Insomnia Multivitamins/Vitamin C (Multivitamin Tablet) 1 tab PO DAILY [facility] Last Admin: 05/22/23 08:28 Dose: 1 tab Nitroglycerin (Nitroglycerin 0.4 Mg Patch.Td24) 0.4 mg TRANSDERMA DAILY [facility]; Protocol Last Admin: 05/22/23 08:29 Dose: 0.4 mg Ondansetron HCl (Ondansetron Hcl 4 Mg/2 Ml Vial) 4 mg IVPUSH Q8H PRN PRN Reason: Nausea and Vomiting Rivaroxaban (Rivaroxaban 15 Mg Tablet) 15 mg PO DAILY@1800 [facility] Last Admin: 05/22/23 16:49 Dose: 15 mg Ropinirole HCl (Ropinirole Hcl 0.25 Mg Tablet) 0.25 mg PO BID [facility] Last Admin: 05/22/23 08:29 Dose: 0.25 mg Sodium Chloride (0.9 % Sodium Chloride Flush 3 Ml Syringe) 3 ml IVFLUSH QSHIFT [facility] Last Admin: 05/22/23 16:49 Dose: 3 ml Tamsulosin HCl (Tamsulosin Hcl 0.4 Mg Capsule) 0.4 mg PO DAILY@1200 [facility] Last Admin: 05/22/23 11:55 Dose: 0.4 mg Home Medications Medication Instructions Recorded Confirmed Last Taken Type multivitamin 1 tab PO DAILY 04/12/20 05/22/23 05/21/23 History gabapentin 100 mg capsule 100 mg PO BEDTIME 06/27/22 05/22/23 05/20/23 History tamsulosin 0.4 mg capsule (Flomax) 0.4 mg PO DAILY@1200 06/27/22 05/22/23 05/21/23 History meclizine 25 mg tablet 25 mg PO TID PRN Dizziness 01/09/23 05/22/23 05/21/23 History bumetanide 1 mg tablet See Rx Instructions PO DIRECTED 03/27/23 05/21/23 History bumetanide 1 mg tablet 1 mg PO DAILY@1200 05/22/23 05/22/23 Unknown History bumetanide 1 mg tablet 2 mg PO DAILY 05/22/23 05/22/23 Unknown History Physical Exam 2 Vital Signs: Vital Signs: Last Vital Signs Temp 97.8 F 05/22/23 15:30 Pulse 73 05/22/23 15:30 Resp 20 05/22/23 15:30 BP 131/63 05/22/23 15:30 Pulse Ox 95 05/22/23 15:30 O2 Del Method Room Air 05/22/23 15:30 BMI result Body Mass Index 26.3 Const: General: cooperative, comfortable, no acute distress, alert and awake Nutritional Appearance: overweight Orientation/consciousness: patient oriented x3 Limitations: no limitations HEENT: Head: Yes normocephalic and Yes atraumatic Neck: Neck: Yes trachea midline, Yes supple and Yes JVD (Positive HJR) Resp: Effort & Inspection: normal respiratory effort Auscultation: clear to auscultation bilaterally Cardio: Palpation: abnormal PMI displaced PMI Rate: regular rate Rhythm: regular rhythm Heart sounds: S1 normal heart sound present, S2 normal heart sound present, no click, no gallops, Murmur heart sound present systolic early, decrescendo and crescendo and no rubs GI: Palpation (GI): Soft to palpation Auscultation: normal bowel sounds Skin: General skin exam: no rashes or lesions noted Neuro: General: patient oriented x3 and no focal motor deficits Extrem: General: Yes no clubbing, cyanosis or edema Psych: Appearance: grossly normal Objective Labs and Meds 05/21/23 16:48 05/22/23 07:00 Lab results: Laboratory Results - last 24 hr 05/22/23 05/22/23 05/22/23 07:00 07:56 11:20 Hold Purple Top SEE NOTE Sodium 140 Potassium 3.6 Chloride 101 Carbon Dioxide 29 Anion Gap 14 BUN 47 H Creatinine 2.41 H Estim Creat Clear Calc 22.8 Estimated GFR 26 POC Glucose 154 H Random Glucose 86 Calcium 9.0 Total Bilirubin 1.7 H AST 24 ALT 17 Alkaline Phosphatase 107 Total Protein 7.3 Albumin 3.4 L Ur Random Sodium 52.0 Urine Creatinine 85.79 05/22/23 05/22/23 11:52 16:12 Hold Purple Top Sodium Potassium Chloride Carbon Dioxide Anion Gap BUN Creatinine Estim Creat Clear Calc Estimated GFR POC Glucose 123 H 102 Random Glucose Calcium Total Bilirubin AST ALT Alkaline Phosphatase Total Protein Albumin Ur Random Sodium Urine Creatinine Conclusions: - 1. Moderately dilated left ventricle with severely reduced LV ejection fraction of 20-25% with regional wall motion abnormality consistent with ischemic cardiomyopathy 2. Moderately dilated right ventricle with mildly reduced RV systolic function 3. Severe biatrial enlargement 4. Moderate eccentric mitral regurgitation due to restricted mitral leaflet mobility secondary to ischemic cardiomyopathy 5. Mild aortic stenosis 6. Moderately elevated right ventricular systolic pressure with severely elevated right atrial pressures 7. Mildly dilated ascending aorta at 3.9 cm EKG shows ventricular paced rhythm Imaging Radiologist's impression: Impressions Chest X-Ray 05/21/23 16:54 IMPRESSION: Hyperinflated lungs with prominent bilateral interstitial markings similar to previous study. No change in the pacer electrodes and postsurgical changes from previous study. Assessment and Plan (1) Decompensated heart failure: Status: Acute Patient present with symptoms of orthopnea otherwise no other symptoms or signs of heart failure fluid overload except for physical exam with JVD. Echocardiogram consistent with elevated right atrial pressures. This probably explains his renal dysfunction with renal wean is congestion as well as poor forward perfusion. Patient is still orthopneic. Has not had much response to bolus Bumex as per him. This is a clinically difficult scenario. Exact cause of decompensated heart failure is unclear and probably related to suboptimal LV pacing related to reduced thresholds recently given his discomfort with higher pacing thresholds. Will check his device tomorrow. Meanwhile I would give him IV diuresis with Bumex drip. Strict intake and output chart needs to be pursued. Follow renal function tomorrow. He has not tolerated Entresto in the past. Continue hydralazine and nitroglycerin therapy. Would add once better optimized carvedilol therapy for neurohormonal modulation as well. Overall prognosis is guarded given his advanced age, frailty, chronic atrial fibrillation, advancing kidney disease and reduce functionality for overall higher risk of morbidity mortality and recurrent heart failure admissions. This was discussed with him. Limited choices of therapy was discussed with patient and the primary team. (2) Biventricular ICD (implantable cardioverter-defibrillator) in place: Status: Acute Biventricular ICD in place. Appears on basis of the EKG that it is pacing appropriately. Will check to device tomorrow to assess LV pacing. He has not tolerated higher pacing thresholds given his diaphragmatic (3) Chronic atrial fibrillation: Status: Acute Chronic atrial fibrillation which has failed rhythm control approach. Has done very well over many years and cannot pursue rhythm control approach at this point time. Continue rate control approach. Continue full oral anticoagulation with renally adjusted dose of Xarelto. Closely monitor renal function. Will follow with you. Rule of greater than 45 minutes was spent in managing his complex care. Procedures Date of Service Date of Service: 05/22/23
[2023-05-22] MEDS: Bumetanide 25 MG in Container,Empty 0 ML IVCONT (19:25)
[2023-05-22 20:00] VITALS: BP 130/63; PULSE 75; RESP 20; TEMP 36.7; O2SAT 91
[2023-05-22 21:35] LABS: Glucose, Whole Blood 107 mg/dL (60-115)
[2023-05-22] MEDS: Gabapentin 100 MG CAPSULE PO (21:58)
[2023-05-22] MEDS: Atorvastatin Calcium 80 MG TABLET PO (21:58)
[2023-05-23 03:58] VITALS: BP 105/49; PULSE 70; RESP 20; TEMP 36.6; O2SAT 92
[2023-05-23 04:03] VITALS: BP 105/49; PULSE 74; RESP 20; TEMP 37; O2SAT 92
[2023-05-23 07:21] LABS: Glucose, Whole Blood 101 mg/dL (60-115)
[2023-05-23 07:45] LABS: Anion Gap 14 (12-20); Blood Urea Nitrogen 55 mg/dL (9-16); Calcium 8.9 mg/dL (8.4-10.2); Carbon Dioxide 29 mmol/L (22-29); Chloride 97 mmol/L (96-108); Estimated Glomerular Filt Rate 28; Glucose Random 87 mg/dL (60-115); Potassium 3.4 mmol/L (3.3-5.1); Sodium 137 mmol/L (135-145)
[2023-05-23 07:49] VITALS: BP 118/64; PULSE 72; RESP 20; TEMP 36.4; O2SAT 92
[2023-05-23 07:55] LABS: B Type Natriuretic Peptide 488 pg/mL (<100)
[2023-05-23] MEDS: Colchicine 0.6 MG TABLET 0.3 MG PO (09:24)
[2023-05-23] MEDS: Nitroglycerin 0.4 MG PATCH.TD24 TRANSDERMA (09:25)
[2023-05-23] MEDS: rOPINIRole HCL 0.25 MG TABLET PO ×2 (09:25→18:23)
[2023-05-23] MEDS: Multivitamin TABLET 1 TAB PO (09:25)
[2023-05-23] MEDS: 0.9 % Sodium Chloride Flush 3 ML SYRINGE IVFLUSH ×2 (09:26→23:35)
--- NOTE | 2023-05-23 09:52 | P.PNNP_ITS ---
Subjective Subjective Date of Service: 05/24/23 Interval history: Events noted. Feels better. Content Bumex drip Physical Exam 2 Vital Signs: Vital Signs: Last Vital Signs Temp 97.5 F 05/23/23 07:49 Pulse 72 05/23/23 07:49 Resp 20 05/23/23 07:49 BP 118/64 05/23/23 07:49 Pulse Ox 92 05/23/23 07:49 O2 Del Method Room Air 05/23/23 07:49 BMI result Body Mass Index 26.3 Const: General: comfortable Nutritional Appearance: well nourished O rientation/consciousness: patient oriented x3 HEENT: Head: No normal to inspection Mouth: moist mucous membranes Neck: Neck: Yes supple and Yes no JVD Resp: Auscultation: no rales Cardio: Jugular venous distension: no JVD Palpation: no palpable S3 and no palpable S4 Heart sounds: no rubs GI: Palpation (GI): Soft to palpation and nontender Percussion: No Fluid wave present : General: Yes no CVA tenderness Back/Spine/Pelvis: Back: no CVA tenderness Skin: General skin exam: no rashes or lesions noted Neuro: General: patient oriented x3 Extrem: General: Yes no pedal edema and No clubbing Objective Data Labs 05/21/23 16:48 05/24/23 06:50 Labs: Laboratory Results - last 24 hr 05/22/23 05/22/23 05/22/23 11:20 11:52 16:12 Sodium Potassium Chloride Carbon Dioxide Anion Gap BUN Creatinine Estim Creat Clear Calc Estimated GFR POC Glucose 123 H 102 Random Glucose Calcium B-Natriuretic Peptide Ur Random Sodium 52.0 Urine Creatinine 85.79 05/22/23 05/23/23 05/23/23 20:55 06:13 07:16 Sodium 137 Potassium 3.4 Chloride 97 Carbon Dioxide 29 Anion Gap 14 BUN 55 H Creatinine 2.29 H Estim Creat Clear Calc 24.0 Estimated GFR 28 POC Glucose 107 101 Random Glucose 87 Calcium 8.9 B-Natriuretic Peptide 488 H Ur Random Sodium Urine Creatinine Procedures Date of Service Date of Service: 05/24/23 Assessment & Plan Assessment and plan (1) Chronic kidney disease (CKD) stage G3b/A1, moderately decreased glomerular filtration rate (GFR) between 30-44 mL/min/1.73 square meter and albuminuria creatinine ratio less than 30 mg/g: Status: Acute Plan MARK superimposed on CKD. MARK is most likely due to hypoperfusion. He has underlying CKD in the setting of congestive heart failure and diabetes mellitus. In the past urinalysis revealed 2+ proteinuria by dipstick. He might have underlying diabetic kidney disease. Recommendations Cautious diuresis for now while monitoring renal function closely Disproportionate increase in BUN most likely is due to diuretic induced prerenal azotemia Continue to avoid nephrotoxic agents. Renal function should improve once his hemodynamics improve. Time Spent With Patient Time: Total time managing care of this patient today ____ minutes. Progress Note: Quality Stroke Does the patient have a stroke diagnosis?: No
[2023-05-23 11:03] LABS: Glucose, Whole Blood 206 mg/dL (60-115)
[2023-05-23 11:17] VITALS: BP 115/54; PULSE 72; RESP 20; TEMP 36.4; O2SAT 99
--- NOTE | 2023-05-23 11:56 | PM.PNCARD ---
Subjective Subjective Date of Service: 05/23/23 Principal diagnosis: Decompensated congestive heart failure Interval history: Patient on Bumex risk overnight says has diuresed about 1400 cc as per his estimation. He feels a lot better. No change in his weight or abdominal distension or leg edema. Checked his device at bedside and the set LV pacing thresholds are lower than capture thresholds. This in effect is leading to ineffectual pacing. Review of Systems Constitutional: Reports no additional constitutional complaints Cardiovascular: Reports no additional cardiovascular complaints Respiratory: Reports no additional respiratory complaints Gastrointestinal: Reports no additional gastrointestinal complaints Genitourinary: Reports no additional male genitourinary complaints Musculoskeletal: Reports no additional musculoskeletal complaints Reports system reviewed and no additional complaints, except as documented Physical Exam Vital Signs: Last Vital Signs Temp 97.6 F 05/23/23 11:17 Pulse 72 05/23/23 11:17 Resp 20 05/23/23 11:17 BP 115/54 L 05/23/23 11:17 Pulse Ox 99 05/23/23 11:17 O2 Del Method Room Air 05/23/23 11:17 BMI result Body Mass Index 26.3 Const General: cooperative, comfortable, no acute distress, alert, awake and tired appearing Nutritional Appearance: overweight Orientation/consciousness: patient oriented x3 Neck Neck: Yes trachea midline, Yes supple and Yes JVD (Improved) Cardio Rate: regular rate Rhythm: regular rhythm Heart sounds: S1 normal heart sound present, S2 normal heart sound present, no click, no gallops and no murmurs Neuro General: patient oriented x3 and no focal motor deficits Extrem General: Yes no clubbing, cyanosis or edema Objective Labs and Meds 05/21/23 16:48 05/23/23 06:13 Lab results: Laboratory Results - last 24 hr 05/22/23 05/22/23 05/22/23 11:52 16:12 20:55 Sodium Potassium Chloride Carbon Dioxide Anion Gap BUN Creatinine Estim Creat Clear Calc Estimated GFR POC Glucose 123 H 102 107 Random Glucose Calcium B-Natriuretic Peptide 05/23/23 05/23/23 05/23/23 06:13 07:16 10:58 Sodium 137 Potassium 3.4 Chloride 97 Carbon Dioxide 29 Anion Gap 14 BUN 55 H Creatinine 2.29 H Estim Creat Clear Calc 24.0 Estimated GFR 28 POC Glucose 101 206 H Random Glucose 87 Calcium 8.9 B-Natriuretic Peptide 488 H Progress Note: A&P Assessment and plan (1) Decompensated heart failure: Status: Acute Assessment and Plan: Decompensated congestive in this elderly gentleman most likely due to ineffective cardiac resynchronization therapy with worsening LV ejection fraction. Myocardial ischemia needs to be ruled out. Will suggest outpatient myocardial perfusion imaging. Continue IV diuresis with Bumex drip today for 1 more day. Strict intake and output chart needs to be pursued. Continue to follow BMP and renal function tomorrow. Renal function is improving. Start Coreg 3.125 mg b.i.d. to his regimen and continue hydralazine and nitroglycerin therapy. Overall prognosis is guarded. I think patient requires repeat EPS evaluation for consideration of alternating to LV pacing and may require AV herminio ablation with left bundle-branch block pacing. Will discuss with EPS as outpatient. Probable discharge tomorrow. On discharge switch to torsemide 40 mg b.i.d.. (2) Chronic atrial fibrillation: Status: Acute Assessment and Plan: Chronic or atrial fibrillation, adequately rate control although there is ineffective cardiac resynchronization therapy. Add carvedilol as above. Continue full oral anticoagulation, currently on Xarelto. Will follow with you Time Spent With Patient Time: Total time managing care of this patient today ____ minutes. Progress Note: Quality Stroke Does the patient have a stroke diagnosis?: No Procedures Date of Service Date of Service: 05/23/23
[2023-05-23] MEDS: Tamsulosin HCL 0.4 MG CAPSULE PO (12:10)
[2023-05-23] MEDS: Insulin Lispro 100 UNIT/ML 3 ML VIAL SUBCUT ×2 (12:10→21:08)
--- NOTE | 2023-05-23 14:02 | MHC.CM.PN ---
[facility] REVIEWED, PER BAO ALEXANDER THEY ARE UNABLE TO OFFER D/T NOT HAVING A LTC BED AVAILABLE, SNF REFERRAL EXPANDED TO [facility], [facility] STILL UNABLE TO CONTACT PT'S BROTHER/HCP, CM WILL CONT TO FOLLOWDC NEEDS.
[2023-05-23 16:00] VITALS: BP 109/53; PULSE 69; RESP 14; TEMP 36.4; O2SAT 96
[2023-05-23 17:01] LABS: Glucose, Whole Blood 112 mg/dL (60-115)
--- NOTE | 2023-05-23 17:03 | HO.PM.IMPN ---
Subjective Subjective Date of Service: 05/23/23 Interval History: Seen in follow up for CHF exacerbation, COVID-19 Interval History: Significant improvements in orthopnea and dyspnea on exertion. Diuresing well on Bumex drip. Creatinine improving. Review of Systems Review of Systems: Yes all other systems are reviewed and are negative Physical Exam Vital Signs: Vital Signs: Last Vital Signs Temp 97.6 F 05/23/23 16:00 Pulse 69 05/23/23 16:00 Resp 14 05/23/23 16:00 BP 109/53 L 05/23/23 16:00 Pulse Ox 96 05/23/23 16:00 O2 Del Method Room Air 05/23/23 16:00 BMI result Body Mass Index 26.3 Constitutional - Awake and Alert, No apparent distress Eyes - PERRLA, EOMI Cardiovascular - S1S2, RRR, No edema Respiratory - Normal lung expansion, Normal respiratory effort, No respiratory distress, CTA bilaterally Gastrointestinal - NT / ND; +BS; No rebound or guarding Extremities - no calf tenderness bilaterally, no swelling Skin - Warm/Dry Neurological - Alert & oriented x3 Psychological - Appropriate affect Objective Data Active Medications Acetaminophen (Acetaminophen 325 Mg Tablet) 650 mg PO Q6H PRN PRN Reason: Pain, Mild (Pain Scale 1-3) Al Hydroxide/Mg Hydroxide (Magnesium Hydrox/Alum Hydrox 30 Ml Oral.Susp) 30 ml PO Q4H PRN PRN Reason: Heartburn/Nausea Allopurinol (Allopurinol 100 Mg Tablet) 50 mg PO Q48H [facility] Atorvastatin Calcium (Atorvastatin Calcium 80 Mg Tablet) 80 mg PO BEDTIME [facility] Last Admin: 05/22/23 21:58 Dose: 80 mg Documented By: GLENN Colchicine (Colchicine 0.6 Mg Tablet) 0.3 mg PO DAILY [facility] Last Admin: 05/23/23 09:24 Dose: 0.3 mg Documented By: JALIL Dextrose (Dextrose 50 % 25 Gm/50 Ml Syringe) 25 gm IVPUSH Q15M PRN; Protocol PRN Reason: per Hypoglycemia Standing Ord. Gabapentin (Gabapentin 100 Mg Capsule) 100 mg PO BEDTIME [facility] Last Admin: 05/22/23 21:58 Dose: 100 mg Documented By: GLENN Glucose (Glucose Gel 15 Gm Gel..Gram.) 15 gm PO Q15M PRN; Protocol PRN Reason: per Hypoglycemia Standing Ord. Bumetanide 25 mg/ IV (Miscellaneous Supplies) 100 mls @ 2 mls/hr IVCONT .Q24H [facility] Last Admin: 05/22/23 19:25 Dose: 0.5 mg/hr, 2 mls/hr Documented By: SHELBY Insulin Human Lispro (Insulin Lispro 100 Unit/Ml 3 Ml Vial) 0 unit SUBCUT QIDACHS [facility]; Protocol Last Admin: 05/23/23 12:10 Dose: 4 unit Documented By: JALIL Meclizine HCl (Meclizine Hcl 25 Mg Tablet) 25 mg PO TID PRN PRN Reason: Dizziness Melatonin (Melatonin 3 Mg Tablet) 3 mg PO BEDTIME PRN PRN Reason: Insomnia Multivitamins/Vitamin C (Multivitamin Tablet) 1 tab PO DAILY [facility] Last Admin: 05/23/23 09:25 Dose: 1 tab Documented By: JALIL Nitroglycerin (Nitroglycerin 0.4 Mg Patch.Td24) 0.4 mg TRANSDERMA DAILY [facility]; Protocol Last Admin: 05/23/23 09:25 Dose: 0.4 mg Documented By: JALIL Ondansetron HCl (Ondansetron Hcl 4 Mg/2 Ml Vial) 4 mg IVPUSH Q8H PRN PRN Reason: Nausea and Vomiting Rivaroxaban (Rivaroxaban 15 Mg Tablet) 15 mg PO DAILY@1800 [facility] Last Admin: 05/22/23 16:49 Dose: 15 mg Documented By: SHELBY Ropinirole HCl (Ropinirole Hcl 0.25 Mg Tablet) 0.25 mg PO BID [facility] Last Admin: 05/23/23 09:25 Dose: 0.25 mg Documented By: JALIL Sodium Chloride (0.9 % Sodium Chloride Flush 3 Ml Syringe) 3 ml IVFLUSH QSHIFT [facility] Last Admin: 05/23/23 16:38 Dose: Not Given Documented By: WILMER Non-Admin Reason: IV Running Tamsulosin HCl (Tamsulosin Hcl 0.4 Mg Capsule) 0.4 mg PO DAILY@1200 [facility] Last Admin: 05/23/23 12:10 Dose: 0.4 mg Documented By: JALIL Labs 05/21/23 16:48 05/23/23 06:13 Labs: Laboratory Results - last 24 hr 05/22/23 05/23/23 05/23/23 20:55 06:13 07:16 Anion Gap 14 Estim Creat Clear Calc 24.0 Estimated GFR 28 POC Glucose 107 101 Random Glucose 87 Calcium 8.9 B-Natriuretic Peptide 488 H 05/23/23 05/23/23 10:58 16:48 Anion Gap Estim Creat Clear Calc Estimated GFR POC Glucose 206 H 112 Random Glucose Calcium B-Natriuretic Peptide Assessment and Plan (1) CHF (congestive heart failure): Status: Acute (2) COVID-19: Status: Acute (3) MARK (acute kidney injury): Status: Acute Plan 82-year-old male with history HFrEF, chronic AFib on Coumadin, biventricular ICD, diabetes, hypertension presenting with shortness and clinical presentation most c/w acute exacerbation of heart failure, on top of covid-19, however no hypoxia. Limited improvement in symptoms with limited urinary output on current dose bumex #Acute decompensated HFrEF -Echo performed today showing moderately dilated left ventricle with severely reduced LV systolic function with EF 20-25% with regional wall motion abnormality consistent with ischemic cardiomyopathy. There was moderately dilated RV with mildly reduced RV systolic function. Severe biatrial enlargement. Moderate eccentric mitral regurg due to restricted mitral leaflet mobility secondary to ischemic cardiomyopathy. Mild aortic stenosis. Moderately elevated RV systolic pressure was severely elevated right atrial pressures -Diuresing well per patient, though not well recorded. Strict I&O requested -Continue bumex drip x1 more day. Changed to torsemide 40 mg b.i.d. on discharge -initiate carvedilol 3.125 mg b.i.d. -continue hydralazine and nitroglycerin -monitor weight, cardiac diet -Cardiology input appreciated -per Cardiology, recommending outpatient myocardial perfusion imaging and repeat EPS evaluation for consideration of alternating 2 LV pacing and may require AV herminio ablation with left bundle branch block pacing outpt #Covid-19- asymptomaitc - no hyoxia and hence, treat symptomatically, add decadron if becomes hypoxic -given lack of symptoms, no severe covid, total isolation 5 days #MARK on CKD stage 4- improving, creat trending down -Appreciate nephrology input -Avoid nephrotoxins -I&O -Low sodium diet -Follow BMP #Chronic A. Fib- rate is controlled -presently not on any rate control med -continue xarelto #Non insulin dependent type 2 diabetes- without hyperglycemia -hold PO meds (sitagliptin and glimeperide) -POCs, sliding scale and diabetic diet #HTN -BP improving, but remains somewhat soft -continue holding hydralazine. Consider restarting at lower dose if necessary #HLD -statin #BPH -Flomax Full Code DVT pptx, Xarelto Pt requires ongoing inpt stay for management of decompensated congestive heart failure on bumex drip requiring close cardiac monitoring and monitoring of renal function with expert consulation as well as monitoring of fluid status Quality Stroke Does the patient have a stroke diagnosis?: No VTE Prior VTE?: No VTE Risk Level:: Medical - moderate - high VTE Device Contraindication: Treatment Not Indicated VTE Drug Contraindication: N/A - Med Ordered
[2023-05-23] MEDS: Rivaroxaban 15 MG TABLET PO (18:02)
[2023-05-23 20:00] VITALS: BP 132/68; PULSE 89; RESP 20; TEMP 36.3; O2SAT 95
[2023-05-23] MEDS: carvediloL 3.125 MG TABLET PO (20:58)
[2023-05-23] MEDS: Gabapentin 100 MG CAPSULE PO (20:58)
[2023-05-23] MEDS: Atorvastatin Calcium 80 MG TABLET PO (20:58)
[2023-05-23] MEDS: Bumetanide 25 MG in Container,Empty 0 ML IVCONT (20:58)
[2023-05-23 21:08] LABS: Glucose, Whole Blood 154 mg/dL (60-115)
[2023-05-24] VITALS: BP 107/57; PULSE 68; RESP 18; TEMP 36.6; O2SAT 96
[2023-05-24 04:00] VITALS: BP 110/54; PULSE 68; RESP 18; TEMP 36.9; O2SAT 98
[2023-05-24 07:40] VITALS: BP 114/58; PULSE 72; RESP 18; TEMP 36.3; O2SAT 96
[2023-05-24 08:07] LABS: Anion Gap 15 (12-20); Blood Urea Nitrogen 71 mg/dL (9-16); Calcium 9.6 mg/dL (8.4-10.2); Carbon Dioxide 32 mmol/L (22-29); Chloride 95 mmol/L (96-108); Creatinine Clr Calc Pharmacy 21.4; Estimated Glomerular Filt Rate 24; Glucose Random 105 mg/dL (60-115); Potassium 3.9 mmol/L (3.3-5.1); Sodium 138 mmol/L (135-145)
[2023-05-24 08:09] LABS: Glucose, Whole Blood 110 mg/dL (60-115)
[2023-05-24] MEDS: Nitroglycerin 0.4 MG PATCH.TD24 TRANSDERMA (09:06)
[2023-05-24] MEDS: rOPINIRole HCL 0.25 MG TABLET PO (09:07)
[2023-05-24] MEDS: allopurinoL 100 MG TABLET 50 MG PO (09:07)
[2023-05-24] MEDS: carvediloL 3.125 MG TABLET PO (09:08)
[2023-05-24] MEDS: 0.9 % Sodium Chloride Flush 3 ML SYRINGE IVFLUSH (09:08)
[2023-05-24] MEDS: Colchicine 0.6 MG TABLET 0.3 MG PO (09:08)
[2023-05-24] MEDS: Multivitamin TABLET 1 TAB PO (09:08)
--- NOTE | 2023-05-24 10:14 | P.PNNP_ITS ---
Subjective Subjective Date of Service: 06/04/23 Principal diagnosis: Decompensated congestive heart failure Interval history: Seen in follow up for CHF exacerbation, COVID-19 Interval History: Significant improvements in orthopnea and dyspnea on exertion. Diuresing well on Bumex drip. Creatinine improving. Physical Exam 2 Vital Signs: Vital Signs: Last Vital Signs Temp 97.4 F 05/24/23 07:40 Pulse 72 05/24/23 07:40 Resp 18 05/24/23 07:40 BP 114/58 L 05/24/23 07:40 Pulse Ox 96 05/24/23 07:40 O2 Del Method Room Air 05/24/23 07:40 BMI result Body Mass Index 26.3 Const: General: comfortable Nutritional Appearance: well nourished O rientation/consciousness: patient oriented x3 HEENT: Head: No normal to inspection Mouth: moist mucous membranes Neck: Neck: Yes supple and Yes no JVD Resp: Auscultation: no rales Cardio: Jugular venous distension: no JVD Palpation: no palpable S3 and no palpable S4 Heart sounds: no rubs GI: Palpation (GI): Soft to palpation and nontender Percussion: No Fluid wave present : General: Yes no CVA tenderness Back/Spine/Pelvis: Back: no CVA tenderness Skin: General skin exam: no rashes or lesions noted Neuro: General: patient oriented x3 Extrem: General: Yes no pedal edema and No clubbing Objective Data Labs 05/21/23 16:48 05/24/23 06:50 Labs: Laboratory Results - last 24 hr 05/23/23 05/23/23 05/23/23 10:58 16:48 21:01 Hold Purple Top Sodium Potassium Chloride Carbon Dioxide Anion Gap BUN Creatinine Estim Creat Clear Calc Estimated GFR POC Glucose 206 H 112 154 H Random Glucose Calcium 05/24/23 05/24/23 06:50 07:38 Hold Purple Top SEE NOTE Sodium 138 Potassium 3.9 Chloride 95 L Carbon Dioxide 32 H Anion Gap 15 BUN 71 H Creatinine 2.57 H Estim Creat Clear Calc 21.4 Estimated GFR 24 POC Glucose 110 Random Glucose 105 Calcium 9.6 D Procedures Date of Service Date of Service: 06/04/23 Assessment & Plan Assessment and plan (1) Decompensated heart failure: Status: Resolved Assessment and Plan: Decompensated congestive heart failure with advanced heart failure syndrome with worsening LV ejection fraction. I think this is most likely related to suboptimal cardiac resynchronization therapy leading to multiple (2) Chronic atrial fibrillation: Status: Acute (3) MARK (acute kidney injury): Status: Resolved Plan MARK superimposed on CKD. Prerenal azotemia. Bump in BUN acceptable. Concur with Cardiology. Next central follow as outpatient. Time Spent With Patient Time: Total time managing care of this patient today ____ minutes. Progress Note: Quality Stroke Does the patient have a stroke diagnosis?: No
--- NOTE | 2023-05-24 10:51 | PM.PNCARD ---
Subjective Subjective Date of Service: 05/24/23 Principal diagnosis: Decompensated congestive heart failure Interval history: Patient creatinine is going to. Receive Coreg yesterday. Says usually takes Coreg at home. However he said he feels well. Shortness of breath is improved. Overnight intake and output chart, not sure of they are accurate Review of Systems Constitutional: Reports no additional constitutional complaints Physical Exam Vital Signs: Last Vital Signs Temp 97.4 F 05/24/23 07:40 Pulse 72 05/24/23 07:40 Resp 18 05/24/23 07:40 BP 114/58 L 05/24/23 07:40 Pulse Ox 96 05/24/23 07:40 O2 Del Method Room Air 05/24/23 07:40 BMI result Body Mass Index 26.3 Const General: cooperative, comfortable, no acute distress, alert, awake and tired appearing Nutritional Appearance: overweight Orientation/consciousness: patient oriented x3 Neck Neck: Yes trachea midline, Yes supple and Yes JVD (Improved) Cardio Rate: regular rate Rhythm: regular rhythm Heart sounds: S1 normal heart sound present, S2 normal heart sound present, no click, no gallops and no murmurs Neuro General: patient oriented x3 and no focal motor deficits Extrem General: Yes no clubbing, cyanosis or edema Objective Labs and Meds 05/21/23 16:48 05/24/23 06:50 Lab results: Laboratory Results - last 24 hr 05/23/23 05/23/23 05/23/23 10:58 16:48 21:01 Hold Purple Top Sodium Potassium Chloride Carbon Dioxide Anion Gap BUN Creatinine Estim Creat Clear Calc Estimated GFR POC Glucose 206 H 112 154 H Random Glucose Calcium 05/24/23 05/24/23 06:50 07:38 Hold Purple Top SEE NOTE Sodium 138 Potassium 3.9 Chloride 95 L Carbon Dioxide 32 H Anion Gap 15 BUN 71 H Creatinine 2.57 H Estim Creat Clear Calc 21.4 Estimated GFR 24 POC Glucose 110 Random Glucose 105 Calcium 9.6 D Progress Note: A&P Assessment and plan (1) Decompensated heart failure: Status: Acute Assessment and Plan: Decompensated congestive heart failure with advanced heart failure syndrome with worsening LV ejection fraction. I think this is most likely related to suboptimal cardiac resynchronization therapy leading to multiple hospitalizations this year. However he does not tolerate higher ventricular pacing thresholds as it causes a lot of irritation for him with phrenic nerve excitation. Full discussed with electrophysiology to see if there are any other alternatives including possible placement of for LBBB lead and AV herminio ablation. Meanwhile continue carvedilol and isosorbide. Will need ischemic workup which will be done as an outpatient. Follow-up prognosis is limited and guarded. (2) Chronic atrial fibrillation: Status: Acute Assessment and Plan: Control atrial fibrillation. Continue carvedilol therapy. Possibility of AV herminio ablation as outpatient. Currently on full oral anticoagulation Xarelto. Continue the same. Will follow up as outpatient. Thank you for allowing me to partake in his care. Time Spent With Patient Time: Total time managing care of this patient today ____ minutes. Progress Note: Quality Stroke Does the patient have a stroke diagnosis?: No Procedures Date of Service Date of Service: 05/24/23
[2023-05-24 11:05] VITALS: BP 109/59; PULSE 65; RESP 20; TEMP 36.3; O2SAT 97
[2023-05-24 11:32] LABS: Glucose, Whole Blood 216 mg/dL (60-115)
--- NOTE | 2023-05-24 11:36 | MHC.CM.PN ---
Pt is medically cleared for D/C home with family support. Pts son Reji will transport him home.
--- NOTE | 2023-05-24 11:48 | PM.DS ---
DS: Providers Provider Date of Service: 05/24/23 Date of admission: 05/21/23 22:37 Date of discharge: 05/24/23 Primary care physician: Kishan Paez MD Consults: 05/22/23 00:49 Consult to Cardiology Routine Consulting Provider: [facility] [place] [facility] Reason for consultation: heart failure exacerbation Has provider been notified: Yes 05/22/23 10:49 Consult to Nephrology Routine Consulting Provider: [facility] [place] [facility] Reason for consultation: Ckd, chf Attending physician on discharge: Stiven Monroy Discharging clinician: Yenny Corey DS: Diagnosis Discharge Diagnosis (1) Decompensated heart failure: Status: Acute (2) Chronic atrial fibrillation: Status: Acute DS: Summary Hospital Course Hospital Course: From H&P on the day of admission This is an 82-year-old male with a past medical history of heart failure with reduced ejection fraction (30%), chronic AFib on Xarelto, CAD status post remote CABG, biventricular ICD in place, type 2 diabetes, GERD, history of GI bleed, aortic aneurysm who presents to the hospital with 3 days of worsening shortness of breath, worse lying and has been sleeping in recliner and even then not feeling much better. The symptoms feel like previous episodes of heart failue. Acute decompensated HFrEF Echo performed showing moderately dilated left ventricle with severely reduced LV systolic function with EF 20-25% with regional wall motion abnormality consistent with ischemic cardiomyopathy. There was moderately dilated RV with mildly reduced RV systolic function. Severe biatrial enlargement. Moderate eccentric mitral regurg due to restricted mitral leaflet mobility secondary to ischemic cardiomyopathy. Mild aortic stenosis. Moderately elevated RV systolic pressure was severely elevated right atrial pressures. He was treated with IV bumex drip with good effect. continued on baseline medications. Will change to torsemide on discharge. Hydralazine dose was decreased due to borderline blood pressure. Coreg was resumed. He was followed by cardiology and will need outpatient myocardial perfusion imaging and repeat EPS evaluation for consideration of alternating 2 LV pacing and may require AV herminio ablation with left bundle branch block pacing outpt. Covid-19- asymptomaitc. no hypoxia given lack of symptoms, no severe covid, total isolation 5 days; no need for steroids Time Attestation Discharge coordination time: Greater than 30 minutes Quality: Safe Use of Opioids Does Pt have an Active Cancer Diagnosis on the Problem List?: No Quality: Stroke Does the patient have a stroke diagnosis?: No Physical Exam Vital Signs: Vital Signs: Last Vital Signs Temp 97.4 F 05/24/23 11:05 Pulse 65 05/24/23 11:05 Resp 20 05/24/23 11:05 BP 109/59 L 05/24/23 11:05 Pulse Ox 97 05/24/23 11:05 O2 Del Method Room Air 05/24/23 11:05 BMI result Body Mass Index 26.3 Const: General: cooperative, comfortable, no acute distress, alert and awake Orientation/consciousness: patient oriented x3 Resp: Effort & Inspection: normal respiratory effort, able to speak in complete sentences, no respiratory distress and no use of accessory muscles Cardio: Rate: regular rate Neuro: General: patient oriented x3, moves all extremities and CN's II-XI intact bilaterally Extrem: General: Yes no pedal edema DS: Data Data Completed and Pending Labs on day of discharge: Laboratory Results - last 24 hr 05/23/23 05/23/23 05/24/23 16:48 21:01 06:50 Hold Purple Top SEE NOTE Sodium 138 Potassium 3.9 Chloride 95 L Carbon Dioxide 32 H Anion Gap 15 BUN 71 H Creatinine 2.57 H Estim Creat Clear Calc 21.4 Estimated GFR 24 POC Glucose 112 154 H Random Glucose 105 Calcium 9.6 D 05/24/23 05/24/23 07:38 11:07 Hold Purple Top Sodium Potassium Chloride Carbon Dioxide Anion Gap BUN Creatinine Estim Creat Clear Calc Estimated GFR POC Glucose 110 216 H Random Glucose Calcium Discharge Plan Discharge Anticipated Discharge Date/Time: 05/24/23 12:17 Patient Disposition: Home, Self-Care Discharge Diagnosis: acute decompensated CHF covid 19 Referrals: Po,Kishan Flores MD [Primary Care Provider] - 1 Week Chevy Montanez MD [Physician] - 1 Week Discharge Medications: New carvedilol 3.125 mg Tablet 3.125 mg PO BID 30 Days Qty: 60 0RF Protocol: Hold for SBP/HR < HOLD for SBP < : 90 HOLD for HR < : 60 torsemide 40 mg tablet 40 mg PO BID 30 Days Qty: 60 0RF hydralazine 10 mg tablet 10 mg PO BID 30 Days Qty: 60 0RF Continued Xarelto 15 mg tablet 15 mg PO DAILY@1800 Qty: 90 3RF glimepiride 4 mg tablet 4 mg PO QAM Qty: 90 3RF Januvia 50 mg tablet 50 mg PO DAILY Qty: 90 3RF colchicine [Colcrys] 0.6 mg tablet 0.6 mg PO DAILY 90 Days Qty: 90 3RF allopurinol 100 mg tablet 100 mg PO DAILY Qty: 90 3RF nitroglycerin 0.4 mg/hr patch 24 hour 1 patch transdermal DAILY Qty: 90 3RF atorvastatin 80 mg tablet 80 mg PO QPM Qty: 90 3RF tamsulosin [Flomax] 0.4 mg capsule 0.4 mg PO BEDTIME 30 Days Qty: 30 1RF gabapentin 100 mg capsule 100 mg PO BEDTIME meclizine 25 mg tablet 25 mg PO TID PRN (Reason: Dizziness) multivitamin Tablet 1 tab PO DAILY ropinirole 0.25 mg tablet 0.25 mg PO BID 90 Days Qty: 180 3RF Discontinued hydralazine 50 mg tablet 50 mg PO TID 90 Days Qty: 270 3RF Protocol: Hold for SBP< HOLD for SBP < : 90 tamsulosin [Flomax] 0.4 mg capsule 0.4 mg PO DAILY@1200 bumetanide 1 mg tablet 2 mg PO DAILY bumetanide 1 mg tablet 1 mg PO DAILY@1200 bumetanide 1 mg tablet See Rx Instructions PO DIRECTED Rx Instructions: orally as directed; Take 2 tablets in the morning to equal 2 mg and 1 tablet in the afternoon to equal 1 mg. Discharge Orders: Discharge Order (Routine); Ordered 05/24/23 Ordered By: Yenny Corey Activity on Discharge: As tolerated Stand Alone Forms: Patient Portal Discharge page Care Plan Goals: see below Health Concerns: decomensated CHF covid 19 - asymptomatic Plan of Treatment: stop taking bumex - start taking torsemide as a diuretic monitor weight daily call to schedule follow up appointment with cardiology for further outpatient workup start taking coreg your dose of hydralazine has been decreased to 10 mg twice daily, stop taking previous dose and start taking new dose for covid 19 - recommend follow cdc guidelines, likely 5 days of isolation Assessment: see discharge summary
[2023-05-24] MEDS: Tamsulosin HCL 0.4 MG CAPSULE PO (12:37)
[2023-05-24] MEDS: Insulin Lispro 100 UNIT/ML 3 ML VIAL SUBCUT (12:37)
== END 2023-05-24 14:00 | disposition home or self-care (01) | DRG 291 ==
LOC: HO.ED 20:52 → HO.EDOVER 22:49 → HO.IMC 23:36
PROVIDERS: Nurse Practitioner Family; Physician Assistant; Admitting Provider Internal Medicine; Emergency Provider Emergency Medicine; PCP Internal Medicine; Visit Provider Physician Assistant Medical
DX: I13.0 Hypertensive heart and chronic kidney disease with heart failure and stage 1 through stage 4 chronic kidney disease, or unspecified chronic kidney disease (principal); I50.23 Acute on chronic systolic (congestive) heart failure; U07.1 COVID-19; N18.4 Chronic kidney disease, stage 4 (severe); I48.20 Chronic atrial fibrillation, unspecified; N17.9 Acute kidney failure, unspecified; Z45.02 Encounter for adjustment and management of automatic implantable cardiac defibrillator; E11.22 Type 2 diabetes mellitus with diabetic chronic kidney disease; E78.5 Hyperlipidemia, unspecified; N40.0 Benign prostatic hyperplasia without lower urinary tract symptoms; I25.10 Atherosclerotic heart disease of native coronary artery without angina pectoris; Z95.1 Presence of aortocoronary bypass graft; Z87.891 Personal history of nicotine dependence; Z79.01 Long term (current) use of anticoagulants; Z79.84 Long term (current) use of oral hypoglycemic drugs; Z79.899 Other long term (current) drug therapy
CPT/HCPCS: 36415; 71045; 80048; 80053; 82570; 82947; 83880; 84300; 84484; 85025; 87635; 93005; 93306; 93356; 99285

== ENCOUNTER 2023-05-21 22:37 | Outpatient (BNV) | payer MEDICARE, OTHER, SELFPAY | END 2023-05-22 11:08 | PROVIDERS: Admitting Provider Internal Medicine; Emergency Provider Emergency Medicine; PCP Internal Medicine; Visit Provider Internal Medicine Cardiovascular Disease | DX: I35.0 Nonrheumatic aortic (valve) stenosis (principal) | CPT/HCPCS: 93306 ==

== ENCOUNTER → 2023-05-21 22:37 | Outpatient (BNV) | payer MEDICARE, OTHER, SELFPAY | PROVIDERS: Admitting Provider Internal Medicine; Emergency Provider Emergency Medicine; PCP Internal Medicine; Visit Provider Internal Medicine Hypertension Specialist | DX: I50.9 Heart failure, unspecified (principal); I48.20 Chronic atrial fibrillation, unspecified; N17.9 Acute kidney failure, unspecified | CPT/HCPCS: 99222; 99232 ==

== ENCOUNTER → 2023-05-21 22:37 | Outpatient (BNV) | payer MEDICARE, OTHER, SELFPAY | PROVIDERS: Admitting Provider Internal Medicine; Emergency Provider Emergency Medicine; PCP Internal Medicine; Visit Provider Physician Assistant | DX: U07.1 COVID-19 (principal); I50.23 Acute on chronic systolic (congestive) heart failure | CPT/HCPCS: 99223; 99233; 99239 ==

== ENCOUNTER → 2023-05-21 22:37 | Outpatient (BNV) | payer MEDICARE, OTHER, SELFPAY | PROVIDERS: Admitting Provider Internal Medicine; Emergency Provider Emergency Medicine; PCP Internal Medicine; Visit Provider Internal Medicine Cardiovascular Disease | DX: I50.9 Heart failure, unspecified (principal); I48.20 Chronic atrial fibrillation, unspecified | CPT/HCPCS: 99223; 99233 ==

== ENCOUNTER 2023-06-11 07:02 | Emergency (ER) | payer OTHER, SELFPAY ==
--- NOTE | ~2023-06-11 | XR_ITS ---
EXAMINATION: XR CHEST CLINICAL INFORMATION: Shortness of breath COMPARISON: Previous chest x-ray April 2023 TECHNIQUE: 2 views of the chest were obtained. FINDINGS: The cardiac silhouette is enlarged but stable. Left subclavian pacemaker AICD device appears unchanged. Post-CABG changes. There is pulmonary venous redistribution. There are mild increased interstitial markings questionable for interstitial pulmonary edema. Trace right pleural effusion. No pneumothorax. Degenerative changes of the spine. XR/XR chest 2V IMPRESSION: Question mild CHF similar to April 2023 exam.
[2023-06-11 07:03] VITALS: BP 133/55; PULSE 90; RESP 20; TEMP 36.7; O2SAT 87; BMI 26.6
[2023-06-11 07:16] VITALS: O2SAT 96
[2023-06-11 07:20] LABS: MANUAL DIFF FLAG NO
[2023-06-11 07:23] LABS: Basophils Percent Auto 0.3 % (0-2); Eosinophils Absolute Auto 0.1 X10*3/uL (0.0-0.4); Hematocrit 34.2 % (42.0-52.0); Hemoglobin 10.8 g/dl (14.0-18.0); Imm Gran Abs Auto 0.07 X10*3/uL (0.00-0.03); Imm Gran Pct Auto 0.6 % (0.0-0.4); Lymphocytes Absolute Auto 0.6 X10*3/uL (1.2-4.9); Lymphocytes Percent Auto 4.9 % (20-40); Mean Corpuscular HGB Conc 31.6 g/dl (31.0-36.0); Mean Corpuscular Hemoglobin 29.9 pg (27.0-33.0); Mean Corpuscular Volume 94.7 fL (80.0-98.0); Mean Platelet Volume 10.8 fL (9.4-12.4); Monocytes Absolute Auto 1.2 X10*3/uL (0.1-1.2); Neutrophils Absolute Auto 9.8 x10*3/uL (2.0-8.3); Neutrophils Percent Auto 83.2 % (45-73); Platelet Count 192 X10*3/uL (160-400); Red Blood Count 3.61 X10*6/uL (4.60-5.80); Red Cell Distribution Width 15.5 % (11.0-16.0); White Blood Count 11.7 X10*3/uL (4.8-10.8)
[2023-06-11 07:41] LABS: Anion Gap 18 (12-20); Blood Urea Nitrogen 66 mg/dL (9-16); Calcium 9.5 mg/dL (8.4-10.2); Carbon Dioxide 25 mmol/L (22-29); Chloride 101 mmol/L (96-108); Creatinine Clr Calc Pharmacy 21.1; Estimated Glomerular Filt Rate 25; Glucose Random 165 mg/dL (60-115); Potassium 4.2 mmol/L (3.3-5.1); Sodium 140 mmol/L (135-145)
[2023-06-11 07:49] LABS: B Type Natriuretic Peptide 866 pg/mL (<100)
[2023-06-11 07:53] LABS: Troponin-I High Sensitivity 32.5 ng/L (<3.5-35.0)
[2023-06-11 08:35] LABS: Influenza A PCR NEGATIVE (Negative); Influenza B PCR NEGATIVE (Negative); Resp Syncy Virus RNA Qual PCR NEGATIVE (Negative); SARS COV2 PCR INHOUSE NEGATIVE (Negative)
--- NOTE | 2023-06-11 09:12 | ED_ITS ---
HPI - General Adult General Chief complaint: Dyspnea Stated complaint: CHF Time Seen by Provider: 06/11/23 08:52 History of Present Illness HPI narrative: The patient is an 83-year-old male with a history of significant chronic congestive heart failure. He is on torsemide 40 mg b.i.d. as well as other medications including carvedilol and hydralazine. He says he started to feel short of breath in a matter typical of his congestive heart failure last night and he continued to feel short of breath this morning and then he had a son drive him to the emergency room this morning. He says that he took his usual medications this morning. No fever, sweats, chills. No chest pain. No significant worsening of edema in his legs. No calf pain or swelling. The patient is on rivaroxaban. Related Data Home Medications Medication Instructions Recorded Confirmed multivitamin 1 tab PO DAILY 04/12/20 05/22/23 gabapentin 100 mg capsule 100 mg PO BEDTIME 06/27/22 05/22/23 meclizine 25 mg tablet 25 mg PO TID PRN Dizziness 01/09/23 05/22/23 Previous Rx's Medication Instructions Recorded ropinirole 0.25 mg tablet 0.25 mg PO BID 90 days #180 tabs 07/20/22 rivaroxaban 15 mg tablet (Xarelto) 15 mg PO DAILY@1800 #90 tabs 09/21/22 glimepiride 4 mg tablet 4 mg PO QAM #90 tabs 10/24/22 sitagliptin phosphate 50 mg tablet 50 mg PO DAILY #90 tabs 10/24/22 (Januvia) colchicine 0.6 mg tablet (Colcrys) 0.6 mg PO DAILY 90 days #90 tabs 12/20/22 allopurinol 100 mg tablet 100 mg PO DAILY #90 tabs 01/20/23 nitroglycerin 0.4 mg/hr 1 patch transdermal DAILY #90 02/21/23 transdermal 24 hour patch patches atorvastatin 80 mg tablet 80 mg PO QPM #90 tabs 04/23/23 tamsulosin 0.4 mg capsule (Flomax) 0.4 mg PO BEDTIME 30 days #30 caps 05/22/23 torsemide 20 mg tablet 40 mg (2 x 20 mg) PO BID 90 days 05/28/23 #360 tabs carvedilol 3.125 mg tablet 3.125 mg PO BID 90 days #180 tabs 05/29/23 hydralazine 10 mg tablet 10 mg PO BID 90 days #180 tabs 05/29/23 Allergies Allergy/AdvReac Type Severity Reaction Status Date / Time dabigatran etexilate Allergy Unknown indigestion Verified 03/27/23 13:28 [Pradaxa] sacubitril [From ENTRESTO] Allergy Unknown FEELS LIKE Verified 03/27/23 13:28 HAVING A HEART ATTACK valsartan [From ENTRESTO] Allergy Unknown FEELS LIKE Verified 03/27/23 13:28 HAVING A HEART ATTACK Review of Systems 2 Review of Systems: Yes all other systems are reviewed and are negative [facility] Past Medical History Medical History (Updated 06/11/23 @ 11:01 by Frederick Crawford MD) Chronic kidney disease (CKD) stage G3b/A1, moderately decreased glomerular filtration rate (GFR) between 30-44 mL/min/1.73 square meter and albuminuria creatinine ratio less than 30 mg/g Chronic atrial fibrillation Congestive heart failure Heart failure with reduced ejection fraction Acute on chronic systolic (congestive) heart failure CAD (coronary artery disease) Biventricular ICD (implantable cardioverter-defibrillator) in place Ischemic cardiomyopathy History of GI bleed Aortic aneurysm TIA (transient ischemic attack) Gout Obesity (BMI 30-39.9) GERD (gastroesophageal reflux disease) Hypercholesterolemia Type 2 diabetes mellitus with hyperglycemia Hypertension Surgical History History of cardiac defibrillator placement Coronary artery disease involving coronary bypass graft History of cholecystectomy Family History Family History Father CVD (cardiovascular disease) Hypertension Mother Cancer Social History Social History Household Members: Children Housing: House Do you presently have visiting nurse or other home services: No Alcohol intake: never Comment: pt refused fall prevention measures Patient Tobacco Use Status: Former Tobacco user Years Smoked: quit 1985 e-Cigarette/Vaping Use: Never Used Second Hand Smoke Exposure: No Advance Directives Date on File: 06/19/22 service: Yes Current occupational status: retired Cognitive needs: No Hearing needs: No Vision needs: Yes Physical Exam ED Vital Signs: Vital Signs - 24 hr 06/11/23 07:03 12/18/23 07:16 06/11/23 10:00 Temperature 98.1 F Pulse Rate 90 69 Respiratory Rate 20 18 Blood Pressure 133/55 L 124/43 L Pulse Oximetry 87 L 96 98 Oxygen Delivery Method Room Air Nasal Cannula Nasal Cannula Oxygen Flow Rate 2 2 06/11/23 10:26 Temperature Pulse Rate 69 Respiratory Rate 21 H Blood Pressure 115/44 L Pulse Oximetry 95 Oxygen Delivery Method Nasal Cannula Oxygen Flow Rate 2 BMI result Body Mass Index 26.6 Const Other: Patient is an older man who was awake and alert. He did not appear in obvious distress. HENMT Other: Face is symmetrical , mucous membranes moist Eyes Other: Surrounding equal, conjunctivae clear, extraocular movements intact Neck Other: Equivocal JVD. Resp Other: Slight crackles at the bases. Good air entry. Cardio Other: The patient has a regular rate rhythm with no murmur GI Other: Abdomen is soft and nontender Skin Other: Skin is pale and dry Neuro Other: Awake, alert, oriented, appropriate. Moving all 4 extremities symmetrically. Grossly neurologically intact. Extrem Other: 1+ edema at the ankles. Medications Administered Discontinued Medications Generic Name Dose Route Start Last Admin Trade Name Freq PRN Reason Stop Dose Admin Bumetanide 2 mg 06/11/23 09:23 06/11/23 10:27 Bumetanide 1 Mg/4 Ml Vial IVPUSH 06/11/23 09:24 2 mg ONCE ONE Administration Protocol Metolazone 2.5 mg 06/11/23 09:12 06/11/23 09:50 Metolazone 2.5 Mg Tablet PO 06/11/23 09:13 2.5 mg ONCE ONE Administration Medical Decision Making Medical Decision Making [facility] Narrative: The patient is an 83-year-old male with history of heart failure who presents with what seems to be mild exacerbation of his chronic congestive heart failure. He was given 2.5 mg of metolazone orally followed by 2 mg of IV bumetanide. He diuresed about 500 mL of urine and felt considerably better. He felt well enough to go home. He will be discharged to follow-up with his animal care attendant. He should return if worse. Lab Data 06/11/23 07:13 06/11/23 07:13 Labs: Lab Results 06/11/23 Range/Units 07:13 WBC 11.7 H (4.8-10.8) X10*3/uL RBC 3.61 L (4.60-5.80) X10*6/uL Hgb 10.8 L (14.0-18.0) g/dl Hct 34.2 L (42.0-52.0) % MCV 94.7 (80.0-98.0) fL MCH 29.9 (27.0-33.0) pg MCHC 31.6 (31.0-36.0) g/dl RDW 15.5 (11.0-16.0) % Plt Count 192 (160-400) X10*3/uL MPV 10.8 (9.4-12.4) fL Immature Gran % (Auto) 0.6 H (0.0-0.4) % Neut % (Auto) 83.2 H (45-73) % Lymph % (Auto) 4.9 L (20-40) % Blair % (Auto) 10.0 (2-11) % Eos % (Auto) 1.0 (0-4) % Baso % (Auto) 0.3 (0-2) % Lymph # (Auto) 0.6 L (1.2-4.9) X10*3/uL Blair # (Auto) 1.2 (0.1-1.2) X10*3/uL Eos # (Auto) 0.1 (0.0-0.4) X10*3/uL Baso # (Auto) 0.0 (0.0-0.2) X10*3/uL Abs Immat Gran (auto) 0.07 H (0.00-0.03) X10*3/uL Absolute Neuts (auto) 9.8 H (2.0-8.3) x10*3/uL Absolute Nucleated RBC 0.000 (0.0-0.012) X10*3/uL Nucleated RBC % (auto) 0.0 (0.0-0.2) /100WBC Sodium 140 (135-145) mmol/L Potassium 4.2 (3.3-5.1) mmol/L Chloride 101 (96-108) mmol/L Carbon Dioxide 25 (22-29) mmol/L Anion Gap 18 (12-20) BUN 66 H (9-16) mg/dL Creatinine 2.47 H (0.5-1.4) mg/dL Estim Creat Clear Calc 21.1 Estimated GFR 25 Random Glucose 165 H (60-115) mg/dL Calcium 9.5 (8.4-10.2) mg/dL Troponin I High Sens 32.5 (<3.5-35.0) ng/L B-Natriuretic Peptide 866 H (<100) pg/mL Influenza Type A (PCR) NEGATIVE (Negative) Influenza Type B (PCR) NEGATIVE (Negative) RSV RNA Qual (PCR) NEGATIVE (Negative) SARS-CoV-2 RNA (RT-PCR) NEGATIVE (Negative) Independent Interpretation I performed an independent interpretation of an: EKG Interpretation: EKG at 09:59 shows a ventricular paced rhythm at 71 beats per minute Discharge Plan Discharge Clinical Impression: Acute exacerbation of congestive heart failure Patient Disposition: Home, Self-Care Additional Instructions: Please continue your regular medications. You may take your afternoon dose of torsemide today. Please contact your animal care attendant's office see if you can get an earlier follow- up appointment. Return to the emergency was significantly worse. Prescriptions: No Action Xarelto 15 mg tablet 15 mg PO DAILY@1800 Qty: 90 3RF glimepiride 4 mg tablet 4 mg PO QAM Qty: 90 3RF Januvia 50 mg tablet 50 mg PO DAILY Qty: 90 3RF colchicine [Colcrys] 0.6 mg tablet 0.6 mg PO DAILY 90 Days Qty: 90 3RF allopurinol 100 mg tablet 100 mg PO DAILY Qty: 90 3RF nitroglycerin 0.4 mg/hr patch 24 hour 1 patch transdermal DAILY Qty: 90 3RF atorvastatin 80 mg tablet 80 mg PO QPM Qty: 90 3RF tamsulosin [Flomax] 0.4 mg capsule 0.4 mg PO BEDTIME 30 Days Qty: 30 1RF torsemide 20 mg tablet 40 mg PO BID 90 Days Qty: 360 3RF carvedilol 3.125 mg tablet 3.125 mg PO BID 90 Days Qty: 180 3RF Protocol: Hold for SBP/HR < HOLD for SBP < : 90 HOLD for HR < : 60 hydralazine 10 mg tablet 10 mg PO BID 90 Days Qty: 180 3RF gabapentin 100 mg capsule 100 mg PO BEDTIME meclizine 25 mg tablet 25 mg PO TID PRN (Reason: Dizziness) multivitamin Tablet 1 tab PO DAILY ropinirole 0.25 mg tablet 0.25 mg PO BID 90 Days Qty: 180 3RF Referrals: Chevy Montanez MD [Physician] - (Congestive heart failure) Interventions: ED Discharge Assessment Last Done: 06/11/23 11:47 Discharge Date/Time: 06/11/23 12:21
--- NOTE | 2023-06-11 09:14 | ECG_ITS ---
Test Reason : SOB Blood Pressure : / mmHG Vent. Rate : 071 BPM Atrial Rate : 000 BPM P-R Int : 000 ms QRS Dur : 170 ms QT Int : 486 ms P-R-T Axes : 000 133 -13 degrees QTc Int : 528 ms Ventricular-paced rhythm with Premature ventricular complexes Abnormal ECG When compared with ECG of 21-MAY-2023 20:55, Vent. rate has decreased BY 5 BPM Referred By: Frederick Crawford Electronically Signed By:JEANETTE ARANGO MD
[2023-06-11] MEDS: metOLazone 2.5 MG TABLET PO (09:50)
[2023-06-11 10:00] VITALS: BP 124/43; PULSE 69; RESP 18; O2SAT 98
[2023-06-11 10:26] VITALS: BP 115/44; PULSE 69; RESP 21; O2SAT 95
[2023-06-11] MEDS: Bumetanide 1 MG/4 ML VIAL 2 MG IVPUSH (10:27)
--- NOTE | 2023-06-11 11:28 | PC.NURSE ---
informed pt that he is ready for discharge, pt to call his son for a ride home.
--- NOTE | 2023-06-11 11:42 | PC.NURSE ---
pt put out 700cc urine following administration of bumex
== END 2023-06-11 12:21 | disposition home or self-care (01) ==
PROVIDERS: Emergency Provider Emergency Medicine; PCP Internal Medicine
DX: I50.9 Heart failure, unspecified (principal); R06.02 Shortness of breath; R94.31 Abnormal electrocardiogram [ECG] [EKG]; Z20.822 Contact with and (suspected) exposure to COVID-19; Z20.828 Contact with and (suspected) exposure to other viral communicable diseases; Z87.891 Personal history of nicotine dependence; Z79.899 Other long term (current) drug therapy
CPT/HCPCS: 0241U; 71046; 80048; 83880; 84484; 85025; 93005; 96374; 99284; 99285

== ENCOUNTER → 2023-06-11 09:14 | Outpatient (BNV) | payer MEDICARE, OTHER, SELFPAY | PROVIDERS: Emergency Provider Emergency Medicine; PCP Internal Medicine; Visit Provider Internal Medicine Cardiovascular Disease | DX: I49.3 Ventricular premature depolarization (principal); R94.31 Abnormal electrocardiogram [ECG] [EKG] | CPT/HCPCS: 93010 ==

== ENCOUNTER 2023-06-24 23:09 | Emergency (ER) | payer OTHER, SELFPAY ==
--- NOTE | 2023-06-24 | ECG_ITS ---
Test Reason : CHEST PAIN Blood Pressure : / mmHG Vent. Rate : 076 BPM Atrial Rate : 070 BPM P-R Int : 000 ms QRS Dur : 162 ms QT Int : 478 ms P-R-T Axes : 000 132 -17 degrees QTc Int : 537 ms Ventricular-paced rhythm Biventricular pacemaker detected Abnormal ECG When compared with ECG of 11-JUN-2023 09:59, No significant changes seen Referred By: Generic ED Physician Electronically Signed By:AZUCENA PETERSON
--- NOTE | ~2023-06-24 | XR_ITS ---
EXAMINATION: XR CHEST CLINICAL INFORMATION: Chest pain. COMPARISON: Chest radiograph 06/11/2023. TECHNIQUE: Frontal view of the chest was obtained. FINDINGS: Left-sided pacer/AICD with leads projecting over the right atrium, right ventricle and coronary sinus. Midline sternotomy wires and mediastinal surgical clips are seen. Stable prominence of the cardiomediastinal silhouette. Slightly increased interstitial markings compared to most recent prior. No focal consolidation, pleural effusion or pneumothorax. No acute osseous findings. XR/XR chest 1V IMPRESSION: Slightly increased interstitial markings compared to most recent prior most likely related with worsening pulmonary edema. However, an atypical infectious/inflammatory process cannot be entirely excluded in the appropriate clinical context.
[2023-06-24 23:15] VITALS: BP 122/68; PULSE 73; RESP 19; TEMP 36.7; O2SAT 93; BMI 27.3
[2023-06-24 23:37] LABS: MANUAL DIFF FLAG NO
[2023-06-24 23:40] LABS: Basophils Percent Auto 0.3 % (0-2); Eosinophils Absolute Auto 0.2 X10*3/uL (0.0-0.4); Eosinophils Percent Auto 1.7 % (0-4); Hematocrit 33.1 % (42.0-52.0); Hemoglobin 10.8 g/dl (14.0-18.0); Imm Gran Abs Auto 0.04 X10*3/uL (0.00-0.03); Imm Gran Pct Auto 0.4 % (0.0-0.4); Lymphocytes Absolute Auto 0.7 X10*3/uL (1.2-4.9); Lymphocytes Percent Auto 6.7 % (20-40); Mean Corpuscular HGB Conc 32.6 g/dl (31.0-36.0); Mean Corpuscular Hemoglobin 30.5 pg (27.0-33.0); Mean Corpuscular Volume 93.5 fL (80.0-98.0); Mean Platelet Volume 10.1 fL (9.4-12.4); Monocytes Absolute Auto 1.1 X10*3/uL (0.1-1.2); Neutrophils Absolute Auto 8.5 x10*3/uL (2.0-8.3); Neutrophils Percent Auto 80.9 % (45-73); Platelet Count 192 X10*3/uL (160-400); Red Blood Count 3.54 X10*6/uL (4.60-5.80); Red Cell Distribution Width 15.9 % (11.0-16.0); White Blood Count 10.5 X10*3/uL (4.8-10.8)
[2023-06-24 23:43] VITALS: BP 119/48; PULSE 80; RESP 16; TEMP 36.8; O2SAT 96
[2023-06-24 23:51] LABS: Alanine Aminotransferase 22 U/L (0-40); Albumin Level 3.6 g/dL (3.5-5.0); Alkaline Phosphatase 136 U/L (39-117); Anion Gap 19 (12-20); Aspartate Amino Transferase 32 U/L (5-37); Blood Urea Nitrogen 69 mg/dL (9-16); Calcium 9.3 mg/dL (8.4-10.2); Carbon Dioxide 27 mmol/L (22-29); Chloride 99 mmol/L (96-108); Creatinine Clr Calc Pharmacy 21.3; Estimated Glomerular Filt Rate 23; Glucose Random 76 mg/dL (60-115); Potassium 4.1 mmol/L (3.3-5.1); Sodium 141 mmol/L (135-145); Total Protein 8.2 g/dL (6.5-8.0)
[2023-06-24 23:57] LABS: Troponin-I High Sensitivity 28.5 ng/L (<3.5-35.0)
[2023-06-25 00:17] LABS: B Type Natriuretic Peptide 632 pg/mL (<100)
--- NOTE | 2023-06-25 02:07 | ED.CHESTPAIN ---
HPI - Chest Pain General Chief Complaint: Chest Pain Stated Complaint: Sob Time Seen by Provider: 06/25/23 02:06 Source: patient and family (Son, Reji) Mode of arrival: ambulatory Limitations: no limitations History of Present Illness HPI narrative: 83-year-old male with history of chronic kidney disease, diabetes mellitus, hyperlipidemia, coronary disease, CHF, GERD who presents emergency department for evaluation of shortness of breath. The patient states that shortness of breath came on suddenly around 19:00 hours. Patient states that he saws O2 saturation ranged from 80-96% on room air. Patient states he has had similar presentations in the past when he has gotten to congestive heart failure. Patient states that he was recently changed to torsemide and he took an extra 4 tablets this evening with no improvement of his symptoms. Patient states that he was here approximately 2 weeks prior with a similar episode and was treated with an IV medication and then discharged home after he urinated 700 cc of fluid. He denied fever but he did have chills. He has had a cough for 1 week. Denied nausea vomiting or diarrhea. Related Data Home Medications Medication Instructions Recorded Confirmed multivitamin 1 tab PO DAILY 04/12/20 05/22/23 gabapentin 100 mg capsule 100 mg PO BEDTIME 06/27/22 05/22/23 meclizine 25 mg tablet 25 mg PO TID PRN Dizziness 01/09/23 05/22/23 Previous Rx's Medication Instructions Recorded ropinirole 0.25 mg tablet 0.25 mg PO BID 90 days #180 tabs 07/20/22 rivaroxaban 15 mg tablet (Xarelto) 15 mg PO DAILY@1800 #90 tabs 09/21/22 glimepiride 4 mg tablet 4 mg PO QAM #90 tabs 10/24/22 sitagliptin phosphate 50 mg tablet 50 mg PO DAILY #90 tabs 10/24/22 (Januvia) colchicine 0.6 mg tablet (Colcrys) 0.6 mg PO DAILY 90 days #90 tabs 12/20/22 allopurinol 100 mg tablet 100 mg PO DAILY #90 tabs 01/20/23 nitroglycerin 0.4 mg/hr 1 patch transdermal DAILY #90 02/21/23 transdermal 24 hour patch patches atorvastatin 80 mg tablet 80 mg PO QPM #90 tabs 04/23/23 tamsulosin 0.4 mg capsule (Flomax) 0.4 mg PO BEDTIME 30 days #30 caps 05/22/23 torsemide 20 mg tablet 40 mg (2 x 20 mg) PO BID 90 days 05/28/23 #360 tabs carvedilol 3.125 mg tablet 3.125 mg PO BID 90 days #180 tabs 05/29/23 hydralazine 10 mg tablet 10 mg PO BID 90 days #180 tabs 05/29/23 Allergies Allergy/AdvReac Type Severity Reaction Status Date / Time dabigatran etexilate Allergy Unknown indigestion Verified 03/27/23 13:28 [Pradaxa] sacubitril [From ENTRESTO] Allergy Unknown FEELS LIKE Verified 03/27/23 13:28 HAVING A HEART ATTACK valsartan [From ENTRESTO] Allergy Unknown FEELS LIKE Verified 03/27/23 13:28 HAVING A HEART ATTACK Review of Systems Review of Systems: Yes all other systems are reviewed and are negative [facility] Past Medical History [facility] Narrative: Social history: He denies tobacco, alcohol and drug use. Medical History (Updated 06/25/23 @ 06:09 by Cisco Ly MD) Chronic kidney disease (CKD) stage G3b/A1, moderately decreased glomerular filtration rate (GFR) between 30-44 mL/min/1.73 square meter and albuminuria creatinine ratio less than 30 mg/g Chronic atrial fibrillation Congestive heart failure Heart failure with reduced ejection fraction Acute on chronic systolic (congestive) heart failure CAD (coronary artery disease) Biventricular ICD (implantable cardioverter-defibrillator) in place Ischemic cardiomyopathy History of GI bleed Aortic aneurysm TIA (transient ischemic attack) Gout Obesity (BMI 30-39.9) GERD (gastroesophageal reflux disease) Hypercholesterolemia Type 2 diabetes mellitus with hyperglycemia Hypertension Surgical History History of cardiac defibrillator placement Coronary artery disease involving coronary bypass graft History of cholecystectomy Family History Family History Father CVD (cardiovascular disease) Hypertension Mother Cancer Social History Social History Household Members: Children Housing: House Do you presently have visiting nurse or other home services: No Alcohol intake: never Comment: pt refused fall prevention measures Patient Tobacco Use Status: Former Tobacco user Years Smoked: quit 1986 Smoked in Last 30 Days: No e-Cigarette/Vaping Use: Never Used Second Hand Smoke Exposure: No Use of substances other than those prescribed or required for medical reasons: No Advance Directives: Yes Advance Directives on File: Yes Advance Directives Date on File: 06/19/22 service: Yes Current occupational status: retired Cognitive needs: No Hearing needs: No Vision needs: Yes Physical Exam Vital Signs: Vital Signs: Last Vital Signs Temp 97.7 F 06/25/23 05:28 Pulse 70 06/25/23 05:28 Resp 17 06/25/23 05:28 BP 114/48 L 06/25/23 05:28 Pulse Ox 98 06/25/23 05:28 O2 Del Method Nasal Cannula 06/25/23 05:28 O2 Flow Rate 2 06/25/23 05:28 BMI result Body Mass Index 27.3 Vital signs were normal Exam General: Awake, alert in no distress Head: Normocephalic, atraumatic EENT: PERRL, Lids normal, sclera normal, conjunctiva normal, nose normal , ears normal, throat without erythema or exudates Neck: Supple, no adenopathy, no trachea midline or C-spine tenderness Lung: breath sounds symmetric, no wheezing, rales or rhonchi Chest: symmetric movement, nontender Heart: regular rate and rhythm, normal S1, S2 no murmurs or rubs Abdomen: soft, non-tender, nondistended, normal bowel sounds Back: no vertebral tenderness, no CVAT Extremities: no deformities, moves all extremities symmetrically Skin: no rashes, no lesion, normal color and warmth Neuro: Awake, alert, oriented, normal speech, cranial nerves intact, moves all extremities symmetrically Psych: Pleasant, cooperative Medications Administered Discontinued Medications Generic Name Dose Route Start Last Admin Trade Name Freq PRN Reason Stop Dose Admin Bumetanide 1 mg 06/25/23 02:34 06/25/23 02:50 Bumetanide 1 Mg/4 Ml Vial IVPUSH 06/25/23 02:35 1 mg ONCE ONE Administration Protocol Bumetanide 1 mg 06/25/23 04:48 06/25/23 05:06 Bumetanide 1 Mg/4 Ml Vial IVPUSH 06/25/23 04:49 1 mg ONCE ONE Administration Protocol Medical Decision Making Medical Decision Making [facility] Narrative: 83-year-old male with history of chronic kidney disease, diabetes mellitus, hyperlipidemia, coronary disease, CHF, GERD who presents emergency department for evaluation of shortness of breath. The patient states that shortness of breath came on suddenly around 19:00 hours. Patient states that he saws O2 saturation ranged from 80-96%. In the emergency department the patient's O2 saturation was 93% on 2 L, exam was otherwise unremarkable. Following evaluation was ordered: CBC, CMP, troponin, BNP, COVID-19, influenza and RSV Patient was ordered to get Bumex 2 mg IV 06:03 My independent interpretation patient's laboratory evaluation is as follows: H&H was normal 10.8 and 33.1. BUN and creatinine were elevated 69 and 2.65.. BNP is elevated 632. Troponin was detectable but not elevated at 28.5. All of these values are consistent with the patient's baseline. Influenza and COVID-19 were negative. Patient required a 2nd dose of Bumex 1 mg IV. Patient put out approximately 450 cc of urine. Patient's O2 saturation has remained between 92 and 96% on room air. He is feeling better therefore the be discharged home. Differential Diagnosis Differential Diagnoses: The differential diagnosis associated with the presentation includes Differential includes was not limited to congestive heart failure, pneumonia, viral illness Admission/Observation Consideration of admission/observation: Escalation of care including admission/observation considered Lab Data [facility] Lab Attestation statement: I reviewed the patient's lab results. 06/24/23 23:33 06/24/23 23:33 Labs: Lab Results 06/24/23 06/25/23 Range/Units 23:33 02:02 WBC 10.5 (4.8-10.8) X10*3/uL RBC 3.54 L (4.60-5.80) X10*6/uL Hgb 10.8 L (14.0-18.0) g/dl Hct 33.1 L (42.0-52.0) % MCV 93.5 (80.0-98.0) fL MCH 30.5 (27.0-33.0) pg MCHC 32.6 (31.0-36.0) g/dl RDW 15.9 (11.0-16.0) % Plt Count 192 (160-400) X10*3/uL MPV 10.1 (9.4-12.4) fL Immature Gran % (Auto) 0.4 (0.0-0.4) % Neut % (Auto) 80.9 H (45-73) % Lymph % (Auto) 6.7 L (20-40) % [place] % (Auto) 10.0 (2-11) % Eos % (Auto) 1.7 (0-4) % Baso % (Auto) 0.3 (0-2) % Lymph # (Auto) 0.7 L (1.2-4.9) X10*3/uL [place] # (Auto) 1.1 (0.1-1.2) X10*3/uL Eos # (Auto) 0.2 (0.0-0.4) X10*3/uL Baso # (Auto) 0.0 (0.0-0.2) X10*3/uL Abs Immat Gran (auto) 0.04 H (0.00-0.03) X10*3/uL Absolute Neuts (auto) 8.5 H (2.0-8.3) x10*3/uL Absolute Nucleated RBC 0.000 (0.0-0.012) X10*3/uL Nucleated RBC % (auto) 0.0 (0.0-0.2) /100WBC Sodium 141 (135-145) mmol/L Potassium 4.1 (3.3-5.1) mmol/L Chloride 99 (96-108) mmol/L Carbon Dioxide 27 (22-29) mmol/L Anion Gap 19 (12-20) BUN 69 H (9-16) mg/dL Creatinine 2.65 H (0.5-1.4) mg/dL Estim Creat Clear Calc 21.3 Estimated GFR 23 Random Glucose 76 (60-115) mg/dL Calcium 9.3 (8.4-10.2) mg/dL Total Bilirubin 2.0 H (0.0-1.0) mg/dL AST 32 (5-37) U/L ALT 22 (0-40) U/L Alkaline Phosphatase 136 H (39-117) U/L Troponin I High Sens 28.5 (<3.5-35.0) ng/L B-Natriuretic Peptide 632 H (<100) pg/mL Total Protein 8.2 H (6.5-8.0) g/dL Albumin 3.6 (3.5-5.0) g/dL Influenza Type A (PCR) NEGATIVE (Negative) Influenza Type B (PCR) NEGATIVE (Negative) RSV RNA Qual (PCR) NEGATIVE (Negative) SARS-CoV-2 RNA (RT-PCR) NEGATIVE (Negative) Independent Interpretation I performed an independent interpretation of an: EKG Interpretation: My independent interpretation patient's chest x-ray is as follows: Increased interstitial markings consistent with mild CHF Twelve EKG done at 23:24 hours was interpreted by me as follows: Paced rhythm with a rate of 76. Radiology Impression Discussion of test interpretation with radiology: I have reviewed the radiologist's reading. Radiologist Impression: XR chest 1V IMPRESSION: Slightly increased interstitial markings compared to most recent prior most likely related with worsening pulmonary edema. However, an atypical infectious/inflammatory process cannot be entirely excluded in the appropriate clinical context. Dictated By: Jacklyn Hirsch Independent Historian Clinical information obtained from an independent historian. History obtained from or confirmed by: Other (Son) Chronic Conditions Patient?s care impacted by: Other (Congestive heart failure) Critical Care Time Critical Care Time Critical Care Time: Yes Total Critical Care Time: 35 Attestation: Critical Care: The patient was critically ill with a high probability of imminent or life threatening deterioration. I spent greater than 30 minutes of discontinuous time evaluating the patient,delivering critical care at the bedside, discussing and evaluating pertinent data with consultants. Critical care time does not include time spent performing separately billable procedures or teaching. Total time spent performing critical care was 35 minutes. Discharge Plan Discharge Clinical Impression: Hypoxia Congestive heart failure Qualifiers: Heart failure chronicity: acute Patient Disposition: Home, Self-Care Additional Instructions: Your treated with Bumex 2 mg IV and Bumex 1 mg IV. You did put out approximately 450 cc of urine and your oxygen level as stated above 88% therefore I think it is okay to send you home at this time. If you developed any chest pain or shortness of breath please return to the emergency department so that we can re-evaluate you. Continue taking medications as prescribed by your providers. Follow-up with your doctor in 2 days. Please return to the emergency department if your symptoms get worse or if you develop any symptoms that are concerning to you. Prescriptions: No Action Xarelto 15 mg tablet 15 mg PO DAILY@1800 Qty: 90 3RF glimepiride 4 mg tablet 4 mg PO QAM Qty: 90 3RF Januvia 50 mg tablet 50 mg PO DAILY Qty: 90 3RF colchicine [Colcrys] 0.6 mg tablet 0.6 mg PO DAILY 90 Days Qty: 90 3RF allopurinol 100 mg tablet 100 mg PO DAILY Qty: 90 3RF nitroglycerin 0.4 mg/hr patch 24 hour 1 patch transdermal DAILY Qty: 90 3RF atorvastatin 80 mg tablet 80 mg PO QPM Qty: 90 3RF tamsulosin [Flomax] 0.4 mg capsule 0.4 mg PO BEDTIME 30 Days Qty: 30 1RF torsemide 20 mg tablet 40 mg PO BID 90 Days Qty: 360 3RF carvedilol 3.125 mg tablet 3.125 mg PO BID 90 Days Qty: 180 3RF Protocol: Hold for SBP/HR < HOLD for SBP < : 90 HOLD for HR < : 60 hydralazine 10 mg tablet 10 mg PO BID 90 Days Qty: 180 3RF gabapentin 100 mg capsule 100 mg PO BEDTIME meclizine 25 mg tablet 25 mg PO TID PRN (Reason: Dizziness) multivitamin Tablet 1 tab PO DAILY ropinirole 0.25 mg tablet 0.25 mg PO BID 90 Days Qty: 180 3RF
[2023-06-25 02:44] LABS: Influenza A PCR NEGATIVE (Negative); Influenza B PCR NEGATIVE (Negative); Resp Syncy Virus RNA Qual PCR NEGATIVE (Negative); SARS COV2 PCR INHOUSE NEGATIVE (Negative)
[2023-06-25 02:47] VITALS: BP 104/49; PULSE 71; RESP 20; O2SAT 95
[2023-06-25] MEDS: Bumetanide 1 MG/4 ML VIAL IVPUSH ×2 (02:50→05:06)
--- NOTE | 2023-06-25 03:09 | PC.NURSE ---
Oxygen via NC removed per MD order. Pt maintaining o2 sat 93-95% on RA.
[2023-06-25 04:43] VITALS: BP 94/58; PULSE 75; RESP 18; O2SAT 86; O2SAT 96
[2023-06-25 05:28] VITALS: BP 114/48; PULSE 70; RESP 17; TEMP 36.5; O2SAT 98
== END 2023-06-25 06:50 | disposition home or self-care (01) ==
PROVIDERS: Physician Assistant Medical; Emergency Provider Emergency Medicine Emergency Medical Services; PCP Internal Medicine; Referring Provider Emergency Medicine Emergency Medical Services
DX: I13.0 Hypertensive heart and chronic kidney disease with heart failure and stage 1 through stage 4 chronic kidney disease, or unspecified chronic kidney disease (principal); I50.21 Acute systolic (congestive) heart failure; E11.22 Type 2 diabetes mellitus with diabetic chronic kidney disease; N18.32 Chronic kidney disease, stage 3b; R09.02 Hypoxemia; Z20.822 Contact with and (suspected) exposure to COVID-19; Z20.828 Contact with and (suspected) exposure to other viral communicable diseases
CPT/HCPCS: 0241U; 36415; 71045; 80053; 83880; 84484; 85025; 93005; 96374; 96376; 99285

== ENCOUNTER → 2023-06-24 23:24 | Outpatient (BNV) | payer OTHER, SELFPAY | PROVIDERS: Emergency Provider Emergency Medicine Emergency Medical Services; PCP Internal Medicine; Visit Provider Internal Medicine | DX: R07.9 Chest pain, unspecified (principal) | CPT/HCPCS: 93010 ==

== ENCOUNTER 2023-06-29 12:15 | Outpatient (AMB) | payer MEDICARE, OTHER, SELFPAY ==
[2023-06-29 12:32] VITALS: BP 112/56; PULSE 88; O2SAT 95; BMI 26.2
--- NOTE | 2023-06-29 12:32 | MHC.PC.OV ---
Vital Signs 06/29/23 12:32 Height 5 ft 6 in Weight 162 lb 0.8 oz BMI 26.2 BP 112/56 L Blood Pressure Location Lt brachial Position Sitting Pulse 88 Pulse Source Pulse Oximeter Pulse Oximetry (%) 95 Oxygen Delivery Method Room Air Intake Visit Reasons: CHF,cad, DM Clinical Practice Consultant Required: No Allergies dabigatran etexilate [Pradaxa] Allergy (Unknown, Verified 03/27/23 13:28) indigestion sacubitril [From ENTRESTO] Allergy (Unknown, Verified 03/27/23 13:28) FEELS LIKE HAVING A HEART ATTACK valsartan [From ENTRESTO] Allergy (Unknown, Verified 03/27/23 13:28) FEELS LIKE HAVING A HEART ATTACK Tobacco use date assessed: 06/29/23 Fall risk assessment: No Falls in past year Last assessed Fall Risk: 06/29/23 HPI CHF,cad, DM HPI Details 83-year-old male with multiple medical problems coronary artery disease with congestive heart failure diabetes mellitus controlled chronic kidney disease GERD hypertension hypercholesterolemia cardiomyopathy with ICD coming in for follow-up last seen in March 2023. ER visit in June 11 2023 on torsemide 40 mg twice a day got short of breath also diuresed again. ER visit 06/25/2023 short of breath diuresed with Bumex. Also noted April was in the hospital for congestive heart failure ejection fraction is low at 30%. Patient concerned that on lying down does . patient walked along the corridor and oxygen sat goes dopwn ton 90s only. will be seeing cardiology also and will have a proc edure for the icd wire. Discussed with the patient that the oxygen may not work but in any which way overnight oximetry was requested. Patient also has some concerns about constipation and did discussed about taking the stool softeners regularly so long as patient is not going for diarrhea. Also with sleep discussed about natural medications like melatonin. [facility] Medical History (Updated 06/29/23 @ 13:06 by Kishan Paez MD) Chronic kidney disease (CKD) stage G3b/A1, moderately decreased glomerular filtration rate (GFR) between 30-44 mL/min/1.73 square meter and albuminuria creatinine ratio less than 30 mg/g Chronic atrial fibrillation Congestive heart failure Heart failure with reduced ejection fraction Acute on chronic systolic (congestive) heart failure CAD (coronary artery disease) Biventricular ICD (implantable cardioverter-defibrillator) in place Ischemic cardiomyopathy History of GI bleed Aortic aneurysm TIA (transient ischemic attack) Gout Obesity (BMI 30-39.9) GERD (gastroesophageal reflux disease) Hypercholesterolemia Type 2 diabetes mellitus with hyperglycemia Hypertension Surgical History History of cardiac defibrillator placement Coronary artery disease involving coronary bypass graft History of cholecystectomy Family History Father CVD (cardiovascular disease) Hypertension Mother Cancer Social History Household Members: Children Housing: House Do you presently have visiting nurse or other home services: No Alcohol intake: never Comment: pt refused fall prevention measures Patient Tobacco Use Status: Former Tobacco user Years Smoked: quit 1985 e-Cigarette/Vaping Use: Never Used Second Hand Smoke Exposure: No Advance Directives Date on File: 06/19/22 service: Yes Current occupational status: retired Cognitive needs: No Hearing needs: No Vision needs: Yes Questionnaire Thrive Questionnaire Date Thrive assessed: 05/22/23 AUDIT C Alcohol Use Questionnaire (AUDIT-C) 1. How often do you have a drink containing alcohol?: Never 3. How often do you have six or more drinks on one occasion?: Never Total Score: 0 RICHIE-7 AMB Questionnaire RICHIE-7 Date RICHIE - 7 assessed: 12/06/22 Source: Developed by Drs. Og Leija, Nabila Russell, Mike Fung and colleagues, with an educational quinten from [employer]. Physical exam (Primary Care) Vital Signs: Last Vital Signs Pulse 88 06/29/23 12:32 BP 112/56 L 06/29/23 12:32 Pulse Ox 95 06/29/23 12:32 Oxygen Delivery Method Room Air 06/29/23 12:32 BMI result Body Mass Index 26.2 Tobacco/Smoking Status: Tobacco use Status Tobacco use date assessed 06/29/23 06/29/23 12:37 Patient Tobacco Use Status Former Tobacco user 06/29/23 12:37 e-Cigarette/Vaping Use Never Used 06/29/23 12:37 Thrive Assessment: Date of Thrive Assessment Date Thrive assessed 05/22/23 06/29/23 12:37 Const General: alert; No acute distress Eyes Conjunctivae: conjunctivae normal Resp Auscultation: clear to auscultation bilaterally Cardio Rate: regular rate Rhythm: regular rhythm GI Inspection: Yes normal to inspection Extrem General: Yes normal to inspection and No edema Results AMB Hemoglobin A1c AMB Hemoglobin A1c 7.6 % Last Edit by GEORGES Almazan on 06/29/23 12:48 Assessment and Plan Assessment & Plan (1) Chronic atrial fibrillation: Code(s): I48.20 - Chronic atrial fibrillation, unspecified Plan: Continue with Xarelto presently (2) Congestive heart failure due to cardiomyopathy: Code(s): I50.9 - Heart failure, unspecified; I42.9 - Cardiomyopathy, unspecified Plan: Continue with the diuresis, weighing daily and record presently on carvedilol 3.125 mg twice a day and torsemide (3) CAD (coronary artery disease): Code(s): I25.10 - Atherosclerotic heart disease of [place] coronary artery without angina pectoris Qualifiers: Coronary Disease-Associated Artery/Lesion type: [place] artery [place] vs. transplanted heart: [place] heart Associated angina: without angina Qualified Code(s): I25.10 - Atherosclerotic heart disease of [place] coronary artery without angina pectoris Plan: Control the cholesterol, weight, blood pressure, diabetes (4) Type 2 diabetes mellitus with hyperglycemia: Comment: Dr. Marquis Code(s): E11.65 - Type 2 diabetes mellitus with hyperglycemia Qualifiers: Diabetes mellitus half-way insulin use: without half-way use Qualified Code(s): E11.65 - Type 2 diabetes mellitus with hyperglycemia Plan: Decrease the amount of carbohydrate intake, pasta, bread, rice and potatoes are all sugar and that is aside from all the sweet stuff, remember that fruits are good but they are Sweet also. Hemoglobin A1c goal of less than 7.0 on Januvia 50 mg once a day glimepiride 40 mg once a day (5) Hypercholesterolemia: Code(s): E78.00 - Pure hypercholesterolemia, unspecified Plan: Avoid fried foods, chicken skin, eggs, butter margarine, pastries and meat. Be it pork or beef they have a lot of cholesterol LDL goal of less than 70 and triglyceride of less than 150 on atorvastatin 80 mg once a day (6) Hypertension: Code(s): I10 - Essential (primary) hypertension Qualifiers: Hypertension type: essential hypertension Qualified Code(s): I10 - Essential (primary) hypertension Plan: Continue with blood pressure medication. Decrease salt intake and exercise patient takes hydralazine 10 mg twice a day carvedilol 3.125 mg twice a day (7) Nocturnal hypoxemia: Code(s): G47.34 - Idiopathic sleep related nonobstructive alveolar hypoventilation Plan: Will order for overnight oximetry (8) Constipation: Code(s): K59.00 - Constipation, unspecified Plan: on stool softener Three rules for constipation 1. Diet need to have a high fiber diet less of meat 2. Increase oral fluids 3. Exercise (9) Insomnia: Code(s): G47.00 - Insomnia, unspecified Plan: Will try more natural medications 1st like melatonin. May use Benadryl once in a while Orders: Orders AMB Hemoglobin A1c Today E11.65 - Type 2 diabetes mellitus with hyperglycemia Overnight Pulse Oximetry Today G47.34 - Idiopathic sleep related nonobstructive alveolar hypoventilation Medications: New sennosides-docusate sodium 8.6-50 mg (Senna-S) 1 tab-cap PO BEDTIME 60 tabs 3RF K59.00 - Constipation, unspecified Coding Level of Care Code Est Pt Level 4 (85696) Diagnoses Chronic atrial fibrillation I48.20 Congestive heart failure due to cardiomyopathy I50.9; I42.9 Coronary artery disease involving [place] coronary artery of [place] heart without angina pectoris I25.10 Coronary Disease-Associated Artery/Lesion type: [place] artery [place] vs. transplanted heart: [place] heart Associated angina: without angina Type 2 diabetes mellitus with hyperglycemia, without long-term current use of insulin E11.65 Diabetes mellitus longwall shearer operator insulin use: without half-way use Hypercholesterolemia E78.00 Essential hypertension I10 Hypertension type: essential hypertension Nocturnal hypoxemia G47.34 Constipation K59.00 Insomnia G47.00
== END 2023-06-29 13:11 | disposition home or self-care (01) ==
PROVIDERS: PCP Internal Medicine; Visit Provider Internal Medicine
DX: I48.20 Chronic atrial fibrillation, unspecified (principal); I50.9 Heart failure, unspecified; I42.9 Cardiomyopathy, unspecified; E11.65 Type 2 diabetes mellitus with hyperglycemia; I25.10 Atherosclerotic heart disease of native coronary artery without angina pectoris; E78.00 Pure hypercholesterolemia, unspecified; I10 Essential (primary) hypertension; G47.34 Idiopathic sleep related nonobstructive alveolar hypoventilation; K59.00 Constipation, unspecified; G47.00 Insomnia, unspecified
CPT/HCPCS: 83036; 99214

== ENCOUNTER 2023-07-06 08:44 | Outpatient (AMB) | payer MEDICARE, OTHER, SELFPAY ==
--- NOTE | 2023-07-06 09:15 | A.OFFVIS_ITS ---
Intake Intake Visit Reasons: Follow Up/Medication Review-Conf Intake Note: Patient is Present for Follow Up Urology Medication: Tamsulosin Antibiotic Allergies: None Blood Thinners: Xarelto PVR: 0 Allergies dabigatran etexilate [Pradaxa] Allergy (Unknown, Verified 07/24/23 15:37) indigestion sacubitril [From ENTRESTO] Allergy (Unknown, Verified 07/24/23 15:37) FEELS LIKE HAVING A HEART ATTACK valsartan [From ENTRESTO] Allergy (Unknown, Verified 07/24/23 15:37) FEELS LIKE HAVING A HEART ATTACK HPI HPI Comments History of Present Illness Details Ethan is a pleasant male. He is a patient of Dr. Paez. He was seen for the following urology issues - prior urinary retention - BPH 18 m from last visit Nocturia is controlled Continue the tamsulosin 1 hour before bed Main issue has been managing CHF and CHF exacerbation 12 month follow-up Lower urinary tract symptoms He reports minimal issues with urination - Nocturia times 2 Current medications tamsulosin 0.4 mg Concomitant diagnosis include diabetes with peripheral neuropathy 12 month follow-up [facility] Medical History (Updated 07/30/23 @ 21:27 by Erick Resendez MD) Hospital discharge follow-up Biventricular ICD (implantable cardioverter-defibrillator) in place Congestive heart failure Chronic kidney disease (CKD) stage G3b/A1, moderately decreased glomerular filtration rate (GFR) between 30-44 mL/min/1.73 square meter and albuminuria creatinine ratio less than 30 mg/g Chronic atrial fibrillation Congestive heart failure Heart failure with reduced ejection fraction Acute on chronic systolic (congestive) heart failure CAD (coronary artery disease) Ischemic cardiomyopathy History of GI bleed Aortic aneurysm TIA (transient ischemic attack) Gout Obesity (BMI 30-39.9) GERD (gastroesophageal reflux disease) Hypercholesterolemia Type 2 diabetes mellitus with hyperglycemia Hypertension Surgical History History of cardiac defibrillator placement Coronary artery disease involving coronary bypass graft History of cholecystectomy Family History Father CVD (cardiovascular disease) Hypertension Mother Cancer Social History Household Members: Family Housing: Apartment Do you presently have visiting nurse or other home services: No Alcohol intake: never Comment: pt refused fall prevention measures Patient Tobacco Use Status: Former Tobacco user Quit Date: 1985 Years Smoked: quit 1985 e-Cigarette/Vaping Use: Never Used Second Hand Smoke Exposure: No Advance Directives Date on File: 06/19/22 service: Yes Current occupational status: retired Cognitive needs: No Hearing needs: No Vision needs: Yes Review of Systems Const Denies chills and Denies fever(s) Card Reports no additional complaints and Denies syncope Resp Denies cough GI Denies abdominal pain and Denies heartburn Reports as per HPI and Denies change in libido Neuro Denies syncope Psych Denies change in libido Endo Denies change in libido Physical Exam Const General: cooperative, healthy appearing, comfortable and no acute distress Orientation/consciousness: patient oriented x3 HEENT Face and sinus: Yes normal facial exam Mouth: moist mucous membranes Neck Neck: Yes normal visual inspection, Yes full ROM and Yes trachea midline Chest Chest palpation & inspection: normal inspection of the chest Resp Effort & Inspection: normal respiratory effort, able to speak in complete sentences and no respiratory distress GI Inspection: Yes normal to inspection Back/Spine/Pelvis Cervical Spine: normal cervical lordosis Thoracic/Lumbar Spine: thoracic and lumbar spine normal to inspection Skin General skin exam: no rashes or lesions noted Neuro General: patient oriented x3, gait normal, tone normal and moves all extremities Extrem General: Yes normal to inspection and Yes capillary refill normal Office Procedures Post Void Residual Post Residual Void Post Void Residual (PVR): 0 [id number] Void Residual by ultrasound Assessment & Plan Assessment & Plan (1) BPH w urinary obs/LUTS: Code(s): N40.1 - Benign prostatic hyperplasia with lower urinary tract symptoms; N13.8 - Other obstructive and reflux uropathy (2) Nocturia more than twice per night: Code(s): R35.1 - Nocturia Plan Twelve month follow-up PVR Orders: Orders AMB Post Void Residual by ultrasound 07/06/23 N40.1 - Benign prostatic hyperplasia with lower urinary tract symptoms, N13.8 - Other obstructive and reflux uropathy Patient Instructions: Imaging studies, laboratory and physical exam results were discussed and rev iewed in detail. No major barriers to patient understanding were identified. An opportunity to ask questions regarding the treatment plan was provided. All questions were answered. The patient expressed understanding and agreement with the above treatment plan. The patient is aware they should contact our office by phone for worsening of their current condition or the appearance of new urologic symptoms. Compliance is encouraged with any medications and followup testing that is ordered. It is a privilege to participate in the urologic care of your patient. If you have any questions or concerns regarding treatment for the above conditions, or other urologic issues, please do not hesitate to contact me. The office telephone contact is [phone]. This note is constructed using voice recognition software. While every effort has been made to ensure accuracy administrative analyst errors may have been included. Yours sincerely, Dr Erick Resendez MD, [facility] - Urology Providers of Expert, Compassionate Care for the Genitourinary System Coding Level of Care Code Est Pt Level 4 (24130) Diagnoses BPH w urinary obs/LUTS N40.1; N13.8 Nocturia more than twice per night R35.1 CPT Codes Post Residual Void - PVR CPT Code: 73413-Vxzo Void Residual by ultrasound ([id number])
== END 2023-07-06 09:55 | disposition home or self-care (01) ==
PROVIDERS: PCP Internal Medicine; Visit Provider Urology
DX: N40.1 Benign prostatic hyperplasia with lower urinary tract symptoms (principal); N13.8 Other obstructive and reflux uropathy; R35.1 Nocturia
CPT/HCPCS: 99213

== ENCOUNTER → 2023-07-06 08:44 | Outpatient (BNVA) | payer MEDICARE, OTHER, SELFPAY | PROVIDERS: PCP Internal Medicine; Visit Provider Urology | DX: N40.1 Benign prostatic hyperplasia with lower urinary tract symptoms (principal); N13.8 Other obstructive and reflux uropathy; R35.1 Nocturia | CPT/HCPCS: 51798; 99212 ==

== ENCOUNTER 2023-07-07 11:58 | Inpatient (IN) | payer OTHER, MEDICARE, SELFPAY ==
--- NOTE | ~2023-07-07 | XR_ITS ---
EXAMINATION: XR CHEST CLINICAL INFORMATION: Chest pressure COMPARISON: Chest radiograph from 06/25/2023 TECHNIQUE: 2 views of the chest were obtained. FINDINGS: Interval development of bibasilar radiopacities, right greater than left which may reflect atelectasis versus evolving infectious/inflammatory etiology. Trace right-sided pleural effusion. Chronic reticular and interstitial prominence. No pneumothorax. Trachea is midline. Sternotomy wires and surgical clips. Left chest 3-lead pacer, stable. Cardiac mediastinal silhouette is stable. Aorta demonstrates atherosclerotic calcifications. Degenerative changes of the thoracolumbar spine. Soft tissues are unremarkable. XR/XR chest 2V IMPRESSION: 1. Interval development of bibasilar radiopacities, right greater than left which may reflect atelectasis versus evolving infectious/inflammatory etiology. 2. Trace right-sided pleural effusion. 3. Chronic reticular and interstitial prominence.
--- NOTE | 2023-07-07 07:53 | ECG_ITS ---
Test Reason : DSYPHEA Blood Pressure : / mmHG Vent. Rate : 073 BPM Atrial Rate : 070 BPM P-R Int : 000 ms QRS Dur : 196 ms QT Int : 526 ms P-R-T Axes : 000 132 230 degrees QTc Int : 579 ms Ventricular-paced rhythm Biventricular pacemaker detected Abnormal ECG When compared with ECG of 07-JUL-2023 12:40, Vent. rate has decreased BY 11 BPM Referred By: Cisco Ly Electronically Signed By:AZUCENA PETERSON
[2023-07-07 12:04] VITALS: BP 141/66; PULSE 86; RESP 18; TEMP 36.4; O2SAT 95; BMI 26.8
--- NOTE | 2023-07-07 12:04 | ED.GENADULT ---
HPI - General Adult General Chief complaint: Dyspnea Stated complaint: SOB Time Seen by Provider: 07/07/23 22:33 History of Present Illness HPI narrative: 83-year-old male with history of chronic kidney disease, diabetes mellitus, hyperlipidemia, coronary disease, CHF, GERD who presents emergency department for evaluation of shortness of breath x3 days worse the last 24 hours. Patient states that he has congestive heart failure and gets fluid on his lungs which makes him short of breath. He states that he is noticed increased swelling in his legs. He states that he believes his diuretic medication is not working as well as it should. He states that prior to coming to the emergency department he was feeling very short of breath. He denied fever but did have chills. He states that he has a dry nonproductive cough. He has shortness of breath at rest and he states that he has not been walking around secondary to shortness of breath. Denied nausea, vomiting or diarrhea. Patient's had an O2 saturation of 86% on room air and on 2 L via nasal cannula his O2 saturation went up to 95%. Patient was last admitted 06/25/2023 for congestive heart failure with hypoxia. Related Data Home Medications Medication Instructions Recorded Confirmed multivitamin 1 tab PO DAILY 04/12/20 07/07/23 gabapentin 100 mg capsule 100 mg PO BEDTIME 06/27/22 07/07/23 meclizine 25 mg tablet 25 mg PO TID PRN Dizziness 01/09/23 05/22/23 atorvastatin 80 mg tablet 80 mg PO DAILY 07/07/23 07/07/23 Previous Rx's Medication Instructions Recorded ropinirole 0.25 mg tablet 0.25 mg PO BID 90 days #180 tabs 07/20/22 rivaroxaban 15 mg tablet (Xarelto) 15 mg PO DAILY@1800 #90 tabs 09/21/22 glimepiride 4 mg tablet 4 mg PO QAM #90 tabs 10/24/22 sitagliptin phosphate 50 mg tablet 50 mg PO DAILY #90 tabs 10/24/22 (Januvia) colchicine 0.6 mg tablet (Colcrys) 0.6 mg PO DAILY 90 days #90 tabs 12/20/22 allopurinol 100 mg tablet 100 mg PO DAILY #90 tabs 01/20/23 nitroglycerin 0.4 mg/hr 1 patch transdermal DAILY #90 02/21/23 transdermal 24 hour patch patches tamsulosin 0.4 mg capsule (Flomax) 0.4 mg PO BEDTIME 30 days #30 caps 05/22/23 torsemide 20 mg tablet 40 mg (2 x 20 mg) PO BID 90 days 05/28/23 #360 tabs carvedilol 3.125 mg tablet 3.125 mg PO BID 90 days #180 tabs 05/29/23 hydralazine 10 mg tablet 10 mg PO BID 90 days #180 tabs 05/29/23 sennosides 8.6 mg-docusate sodium 1 tab-cap PO BEDTIME #60 tabs 06/29/23 50 mg tablet (Senna-S) Allergies Allergy/AdvReac Type Severity Reaction Status Date / Time dabigatran etexilate Allergy Unknown indigestion Verified 07/07/23 12:04 [Pradaxa] sacubitril [From ENTRESTO] Allergy Unknown FEELS LIKE Verified 07/07/23 12:04 HAVING A HEART ATTACK valsartan [From ENTRESTO] Allergy Unknown FEELS LIKE Verified 07/07/23 12:04 HAVING A HEART ATTACK Review of Systems Review of Systems: Yes all other systems are reviewed and are negative [facility] Past Medical History [facility] Narrative: Social history: He denies tobacco, alcohol and drug use. Onset Date is defined in the Problem List Problems that require an onset date and time if occurred within 24 hrs of arrival to the ED Aortic Dissection and Rupture; Neurologic impairment; Cardiopulmonary Arrest; Endotracheal Intubation; Insertion or Replacement of Mechanical Circulatory Assist Device Medical History Chronic kidney disease (CKD) stage G3b/A1, moderately decreased glomerular filtration rate (GFR) between 30-44 mL/min/1.73 square meter and albuminuria creatinine ratio less than 30 mg/g Chronic atrial fibrillation Congestive heart failure Heart failure with reduced ejection fraction Acute on chronic systolic (congestive) heart failure CAD (coronary artery disease) Biventricular ICD (implantable cardioverter-defibrillator) in place Ischemic cardiomyopathy History of GI bleed Aortic aneurysm TIA (transient ischemic attack) Gout Obesity (BMI 30-39.9) GERD (gastroesophageal reflux disease) Hypercholesterolemia Type 2 diabetes mellitus with hyperglycemia Hypertension Surgical History History of cardiac defibrillator placement Coronary artery disease involving coronary bypass graft History of cholecystectomy Family History Family History Father CVD (cardiovascular disease) Hypertension Mother Cancer Social History Social History Household Members: Children Housing: House Do you presently have visiting nurse or other home services: No Alcohol intake: never Comment: pt refused fall prevention measures Patient Tobacco Use Status: Former Tobacco user Years Smoked: quit 1986 Smoked in Last 30 Days: No e-Cigarette/Vaping Use: Never Used Second Hand Smoke Exposure: No Use of substances other than those prescribed or required for medical reasons: No Advance Directives: Yes Advance Directives on File: Yes Advance Directives Date on File: 06/19/22 service: Yes Current occupational status: retired Cognitive needs: No Hearing needs: No Vision needs: Yes Physical Exam ED Vital Signs: Vital Signs - 24 hr 07/07/23 12:04 07/07/23 12:11 07/07/23 20:22 Temperature 97.6 F 97.5 F Pulse Rate 86 76 Respiratory Rate 18 17 Blood Pressure 141/66 H 113/56 L Pulse Oximetry 95 90 L 95 Oxygen Delivery Method Room Air Room Air Nasal Cannula Oxygen Flow Rate 2 07/07/23 22:32 Temperature 97.8 F Pulse Rate 71 Respiratory Rate 18 Blood Pressure 111/46 L Pulse Oximetry 97 Oxygen Delivery Method Nasal Cannula Oxygen Flow Rate 2 BMI result Body Mass Index 26.8 Vital signs initially revealed revealed an O2 saturation of 85% on room air which improved to 95% on 2 L via nasal cannula Exam: General: Awake, alert in no distress Head: Normocephalic, atraumatic EENT: PERRL, Lids normal, sclera normal, conjunctiva normal, nose normal , ears normal, throat without erythema or exudates Neck: Supple, no adenopathy, no trachea midline or C-spine tenderness Lung: Rales at the bases, no wheezing or rhonchi, breath sounds symmetric Chest: symmetric movement, nontender Heart: regular rate and rhythm, normal S1, S2 , 2/6 systolic murmurs best heard at the left lower sternal border Abdomen: soft, non-tender, nondistended, normal bowel sounds Back: no vertebral tenderness, no CVAT Extremities 1+ pitting edema symmetric Neuro: Awake, alert, oriented, normal speech,moves all extremities symmetrically Psych: Pleasant, cooperative Course Course Course Narrative: This is an RME: Additional HPI, ROS, PE not included below will be deferred to primary provider. 83-year-old male with history of chronic kidney disease, diabetes mellitus, hyperlipidemia, coronary disease, CHF, GERD who presents emergency department for evaluation of shortness of breath. SOB worsens with laying down. Was seen in the ER on 06/25/23 - received bumex, symptoms improved after 1 week. Started on Furosemide mid may and believes it is not effective, 2+ pitting edema Plan: Labs, CXR, viral swabs, EKG Medications Administered Generic Name Dose Route Start Last Admin Trade Name Freq PRN Reason Stop Dose Admin Sodium Chloride 3 ml 07/08/23 00:00 07/08/23 00:00 0.9 % Sodium Chloride Flush 3 Ml Syringe IVFLUSH Not Given QSHIFT QUETA Discontinued Medications Generic Name Dose Route Start Last Admin Trade Name Freq PRN Reason Stop Dose Admin Furosemide 80 mg 07/07/23 23:08 07/07/23 23:24 Furosemide 100 Mg/10 Ml Vial IVPUSH 07/07/23 23:09 80 mg ONCE ONE Administration Protocol Medical Decision Making Medical Decision Making [facility] Narrative: 83-year-old male with history of chronic kidney disease, diabetes mellitus, hyperlipidemia, coronary disease, CHF, GERD who presents emergency department for evaluation of shortness of breath x3 days worse the last 24 hours, O2 saturation on room air was 85% on 2 L via nasal cannula was 95%. Lung exam revealed rales at the bases, no wheezing or rhonchi with symmetric lung sounds, patient has 2/6 systolic murmur. Patient had 1+ pitting edema which was symmetric Following evaluation was ordered: CBC, BMP, liver panel, BNP, PTT, troponin, PT/INR, chest x-ray two view, EKG, traffic controller cable, O2 saturation monitor Patient was treated with the following: Lasix 80 mg IV, oxygen 2 L via nasal cannula 23:16 My interpretation patient's laboratory evaluation is as follows: WBC was normal 6400. Anemia with an H&H of 9.9 and 30.6-chronic. BUN and creatinine elevated 49 and 2.71-chronic. Glucose elevated 117. Bicarb elevated 30. BNP elevated 725. COVID-19 influenza negative. Troponin was detectable but not elevated at 24- similar elevations in the past. I did discuss the patient's presentation over tiger text with the covering hospitalist, Dr. Sen Pires 06:46 Patient was complaining of inability to urinate, bladder scan revealed 650 cc of urine in his bladder therefore I ordered a Gaytan catheter placed. You should also complained of diarrhea therefore I ordered a C diff. Patient's point of care glucose was 45, he was ordered to get D50 x1 IV and ask the nurse to give him orange juice and food to bring up sugar. I did discuss the patient's change in status with the covering hospitalist, Dr. Sen Pires over tiger text. Differential Diagnosis Differential Diagnoses: The differential diagnosis associated with the presentation includes Differential diagnosis includes not limited to pneumonia, congestive heart failure, cardiac ischemia, myocardial infarction, electrolyte abnormalities, anemia Admission/Observation Consideration of admission/observation: Escalation of care including admission/observation considered Consult Healthcare Provider Management of the patient was discussed with: Hospitalist Lab Data MDM Lab Attestation statement: I reviewed the patient's lab results. 07/08/23 06:10 07/08/23 06:10 Labs: Lab Results 07/07/23 Range/Units 12:54 WBC 6.4 (4.8-10.8) X10*3/uL RBC 3.23 L (4.60-5.80) X10*6/uL Hgb 9.9 L (14.0-18.0) g/dl Hct 30.6 L (42.0-52.0) % MCV 94.7 (80.0-98.0) fL MCH 30.7 (27.0-33.0) pg MCHC 32.4 (31.0-36.0) g/dl RDW 15.9 (11.0-16.0) % Plt Count 168 (160-400) X10*3/uL MPV 10.4 (9.4-12.4) fL Immature Gran % (Auto) 0.5 H (0.0-0.4) % Neut % (Auto) 80.2 H (45-73) % Lymph % (Auto) 5.1 L (20-40) % [place] % (Auto) 12.1 H (2-11) % Eos % (Auto) 1.6 (0-4) % Baso % (Auto) 0.5 (0-2) % Lymph # (Auto) 0.3 L (1.2-4.9) X10*3/uL [place] # (Auto) 0.8 (0.1-1.2) X10*3/uL Eos # (Auto) 0.1 (0.0-0.4) X10*3/uL Baso # (Auto) 0.0 (0.0-0.2) X10*3/uL Abs Immat Gran (auto) 0.03 (0.00-0.03) X10*3/uL Absolute Neuts (auto) 5.2 (2.0-8.3) x10*3/uL Absolute Nucleated RBC 0.000 (0.0-0.012) X10*3/uL Nucleated RBC % (auto) 0.0 (0.0-0.2) /100WBC PT 22.3 H (11.1-13.3) SEC INR 1.8 H (0.9-1.1) APTT 49.6 H (26.0-36.4) SEC Sodium 138 (135-145) mmol/L Potassium 3.7 (3.3-5.1) mmol/L Chloride 101 (96-108) mmol/L Carbon Dioxide 30 H (22-29) mmol/L Anion Gap 11 L (12-20) BUN 49 H (9-16) mg/dL Creatinine 2.71 H (0.5-1.4) mg/dL Estim Creat Clear Calc 19.2 Estimated GFR 23 Random Glucose 117 H (60-115) mg/dL Calcium 9.0 (8.4-10.2) mg/dL Total Bilirubin 2.2 H (0.0-1.0) mg/dL Direct Bilirubin 0.4 (0.0-0.5) mg/dL AST 26 (5-37) U/L ALT 20 (0-40) U/L Alkaline Phosphatase 117 (39-117) U/L Troponin I High Sens 24.0 (<3.5-35.0) ng/L B-Natriuretic Peptide 725 H (<100) pg/mL Total Protein 7.5 (6.5-8.0) g/dL Albumin 3.2 L (3.5-5.0) g/dL COVID-19 (LOGAN) Negative (Negative) COVID-19 Clin Com See Note Influenza Type A (RAJIV) Negative (Negative) Influenza Type B (RAJIV) Negative (Negative) Influenza A & B Note See Note Independent Interpretation I performed an independent interpretation of an: EKG and Plain X-Ray Interpretation: My interpretation patient's two view chest x-ray is bilateral lower lobe infiltrates consistent with congestive heart failure My interpretation patient's 12 EKG is as follows: Paced rhythm at a rate of 73 Radiology Impression Discussion of test interpretation with radiology: I have reviewed the radiologist's reading. Radiologist Impression: XR chest 2V IMPRESSION: 1. Interval development of bibasilar radiopacities, right greater than left which may reflect atelectasis versus evolving infectious/inflammatory etiology. 2. Trace right-sided pleural effusion. 3. Chronic reticular and interstitial prominence. Dictated By: Rodney Elizalde MD Critical Care Time Critical Care Time Critical Care Time: Yes Total Critical Care Time: 35 Attestation: Critical Care: The patient was critically ill with a high probability of imminent or life threatening deterioration. I spent greater than 30 minutes of discontinuous time evaluating the patient,delivering critical care at the bedside, discussing and evaluating pertinent data with consultants. Critical care time does not include time spent performing separately billable procedures or teaching. Total time spent performing critical care was 35 minutes. Discharge Plan Discharge Clinical Impression: Congestive heart failure, Hypoxia, Edema, peripheral Patient Disposition: Admitted As Inpatient
--- NOTE | 2023-07-07 12:05 | ECG_ITS ---
Test Reason : CHEST PRESSURE Blood Pressure : / mmHG Vent. Rate : 084 BPM Atrial Rate : 083 BPM P-R Int : 000 ms QRS Dur : 196 ms QT Int : 506 ms P-R-T Axes : 118 141 265 degrees QTc Int : 597 ms Ventricular-paced rhythm Biventricular pacemaker detected Abnormal ECG When compared with ECG of 24-JUN-2023 23:24, Vent. rate has increased BY 8 BPM Referred By: Kiki Torres Electronically Signed By:JEANETTE ARANGO MD
[2023-07-07 12:11] VITALS: O2SAT 90
[2023-07-07 12:59] LABS: MANUAL DIFF FLAG NO
[2023-07-07 13:01] LABS: Basophils Percent Auto 0.5 % (0-2); Eosinophils Absolute Auto 0.1 X10*3/uL (0.0-0.4); Eosinophils Percent Auto 1.6 % (0-4); Hematocrit 30.6 % (42.0-52.0); Hemoglobin 9.9 g/dl (14.0-18.0); Imm Gran Abs Auto 0.03 X10*3/uL (0.00-0.03); Imm Gran Pct Auto 0.5 % (0.0-0.4); Lymphocytes Absolute Auto 0.3 X10*3/uL (1.2-4.9); Lymphocytes Percent Auto 5.1 % (20-40); Mean Corpuscular HGB Conc 32.4 g/dl (31.0-36.0); Mean Corpuscular Hemoglobin 30.7 pg (27.0-33.0); Mean Corpuscular Volume 94.7 fL (80.0-98.0); Mean Platelet Volume 10.4 fL (9.4-12.4); Monocytes Absolute Auto 0.8 X10*3/uL (0.1-1.2); Monocytes Percent Auto 12.1 % (2-11); Neutrophils Absolute Auto 5.2 x10*3/uL (2.0-8.3); Neutrophils Percent Auto 80.2 % (45-73); Platelet Count 168 X10*3/uL (160-400); Red Blood Count 3.23 X10*6/uL (4.60-5.80); Red Cell Distribution Width 15.9 % (11.0-16.0); White Blood Count 6.4 X10*3/uL (4.8-10.8)
[2023-07-07 13:06] LABS: INTERNATIONAL NORM RATIO 1.8 (0.9-1.1); Prothrombin Time 22.3 SEC (11.1-13.3)
[2023-07-07 13:08] LABS: Partial Thromboplastin Time 49.6 SEC (26.0-36.4)
[2023-07-07 13:17] LABS: Alanine Aminotransferase 20 U/L (0-40); Albumin Level 3.2 g/dL (3.5-5.0); Alkaline Phosphatase 117 U/L (39-117); Anion Gap 11 (12-20); Aspartate Amino Transferase 26 U/L (5-37); Bilirubin Direct 0.4 mg/dL (0.0-0.5); Bilirubin Total 2.2 mg/dL (0.0-1.0); Blood Urea Nitrogen 49 mg/dL (9-16); Carbon Dioxide 30 mmol/L (22-29); Chloride 101 mmol/L (96-108); Creatinine Clr Calc Pharmacy 19.2; Estimated Glomerular Filt Rate 23; Glucose Random 117 mg/dL (60-115); Potassium 3.7 mmol/L (3.3-5.1); Sodium 138 mmol/L (135-145); Total Protein 7.5 g/dL (6.5-8.0)
[2023-07-07 13:19] LABS: COVID-19 Test Negative (Negative); IDNOW Serial# 08D9AD1C
[2023-07-07 13:22] LABS: IDNOW Serial# 08D9AD1C
[2023-07-07 13:23] LABS: B Type Natriuretic Peptide 725 pg/mL (<100); Influenza A Negative (Negative); Influenza B2 Negative (Negative)
[2023-07-07 20:22] VITALS: BP 113/56; PULSE 76; RESP 17; TEMP 36.4; O2SAT 95
[2023-07-07 22:32] VITALS: BP 111/46; PULSE 71; RESP 18; TEMP 36.6; O2SAT 97
--- NOTE | 2023-07-07 22:49 | PC.NURSE ---
Pt ca&ox4, no signs of distress. Pt denies pain and sob. Pt reporting fluid retention in lower bilateral extremities onset 1 day Some swelling noted on feet bilaterally. Pt placed on 1L 02 d/t desat into the 80's when laying down. Pt placed on bedside monitor. Plan of care ongoing.
[2023-07-07] MEDS: Furosemide 100 MG/10 ML VIAL 80 MG IVPUSH (23:24)
--- NOTE | 2023-07-07 23:27 | PC.NURSE ---
IV line placed. Pt medicated per aug. Plan of care ongoing.
--- NOTE | 2023-07-08 02:11 | PC.NURSE ---
Pt IV placed @ 2330, 0000 flush not done. Pt allowed to rest.
--- NOTE | 2023-07-08 03:42 | PC.NURSE ---
Pt with CT.
--- NOTE | 2023-07-08 03:47 | PM.IMHP ---
History of Present Illness Date of Service: 07/07/23 Attending physician on admission: Sen Pires Chief Complaint: Shortness of breath. Ethan Macias is a 83 years old man with past medical history significant for HFrEF (EF 20 %) + chronic diastolic heart failure, severe MR, pulmonary hypertension, CAD s/p CABG, CKD stage 3, ICD, chronic atrial fibrillation on Xarelto, TIA, GERD, gout, hyperlipidemia, type 2 diabetes, essential hypertension and aortic aneurysm presents to the hospital complaining of worsening shortness of breath over the last 3 days that increases with exertion, lower extremity swelling and dry cough. He denied chest pain, palpitations, headache fevers chills. He denies any acute gastrointestinal or genitourinary symptoms. He denied tobacco smoking, alcohol abuse or illicit drug use. Patient mentioned that he was taking furosemide and was changed to Bumex. However he said that he feels that Bumex is not helping him. In the ED, he was found to have an oxygen saturation of 86% on room air. He is currently requiring 2 liters/minute supplemental oxygen via nasal cannula. There is no tachycardia, hypotension or fever. There is also trace right-sided pleural effusion and chronic reticular interstitial prominence. Blood workup was remarkable for anemia (Hgb decreasing 10.8 --> 9.9 over the last 2 weeks) and elevated BNP 720 (prior 632). Creatinine is 2.7 which is around baseline. INR is 1.8. There is no leukocytosis. CXR showed bibasilar opacities reflecting atelectasis versus evolving infection. ED tx: Lasix 80 mg IV. Review of Systems Review of Systems: All 12 systems were reviewed and normal except as noted in HPI. [facility] Medical History Chronic kidney disease (CKD) stage G3b/A1, moderately decreased glomerular filtration rate (GFR) between 30-44 mL/min/1.73 square meter and albuminuria creatinine ratio less than 30 mg/g Chronic atrial fibrillation Congestive heart failure Heart failure with reduced ejection fraction Acute on chronic systolic (congestive) heart failure CAD (coronary artery disease) Biventricular ICD (implantable cardioverter-defibrillator) in place Ischemic cardiomyopathy History of GI bleed Aortic aneurysm TIA (transient ischemic attack) Gout Obesity (BMI 30-39.9) GERD (gastroesophageal reflux disease) Hypercholesterolemia Type 2 diabetes mellitus with hyperglycemia Hypertension Family History Father CVD (cardiovascular disease) Hypertension Mother Cancer Surgical History History of cardiac defibrillator placement Coronary artery disease involving coronary bypass graft History of cholecystectomy Social History Household Members: Children Housing: House Do you presently have visiting nurse or other home services: No Alcohol intake: never Comment: pt refused fall prevention measures Patient Tobacco Use Status: Former Tobacco user Years Smoked: quit 1986 Smoked in Last 30 Days: No e-Cigarette/Vaping Use: Never Used Second Hand Smoke Exposure: No Use of substances other than those prescribed or required for medical reasons: No Advance Directives: Yes Advance Directives on File: Yes Advance Directives Date on File: 06/19/22 service: Yes Current occupational status: retired Cognitive needs: No Hearing needs: No Vision needs: Yes Meds Allergies Allergy/AdvReac Type Severity Reaction Status Date / Time dabigatran etexilate Allergy Unknown indigestion Verified 07/07/23 12:04 [Pradaxa] sacubitril [From ENTRESTO] Allergy Unknown FEELS LIKE Verified 07/07/23 12:04 HAVING A HEART ATTACK valsartan [From ENTRESTO] Allergy Unknown FEELS LIKE Verified 07/07/23 12:04 HAVING A HEART ATTACK Active Medications: Current Medications Acetaminophen (Acetaminophen 325 Mg Tablet) 975 mg PO Q6H PRN PRN Reason: Pain, Mild (Pain Scale 1-3) Allopurinol (Allopurinol 100 Mg Tablet) 100 mg PO DAILY [facility] Atorvastatin Calcium (Atorvastatin Calcium 80 Mg Tablet) 80 mg PO DAILY [facility] Carvedilol (Carvedilol 3.125 Mg Tablet) 3.125 mg PO BID [facility]; Protocol Colchicine (Colchicine 0.6 Mg Tablet) 0.3 mg PO DAILY [facility] Gabapentin (Gabapentin 100 Mg Capsule) 100 mg PO BEDTIME [facility] Glipizide (Glipizide 10 Mg Tablet) 10 mg PO DAILY [facility] Hydralazine HCl (Hydralazine Hcl 10 Mg Tablet) 10 mg PO BID [facility]; Protocol Multivitamins/Vitamin C (Multivitamin Tablet) 1 tab PO DAILY [facility] Nitroglycerin (Nitroglycerin 0.4 Mg Patch.Td24) 0.4 mg TRANSDERMA DAILY [facility]; Protocol Sodium Chloride (0.9 % Sodium Chloride Flush 3 Ml Syringe) 3 ml IVFLUSH QSHIFT QUETA Last Admin: 07/08/23 00:00 Dose: Not Given Home Medications Medication Instructions Recorded Confirmed Last Taken Type multivitamin 1 tab PO DAILY 04/12/20 07/07/23 05/21/23 History gabapentin 100 mg capsule 100 mg PO BEDTIME 06/27/22 07/07/23 05/20/23 History meclizine 25 mg tablet 25 mg PO TID PRN Dizziness 01/09/23 05/22/23 05/21/23 History atorvastatin 80 mg tablet 80 mg PO DAILY 07/07/23 07/07/23 07/07/23 History Physical Exam Vital Signs and Narrative: Vital Signs: Last Vital Signs Temp 97.8 F 07/07/23 22:32 Pulse 71 07/07/23 22:32 Resp 18 07/07/23 22:32 BP 111/46 L 07/07/23 22:32 Pulse Ox 97 07/07/23 22:32 O2 Del Method Nasal Cannula 07/07/23 22:32 O2 Flow Rate 2 07/07/23 22:32 BMI result Body Mass Index 26.8 Constitutional - Awake and Alert, No apparent distress. Acutely ill. Cooperative. HEENT - Atraumatic, normocephalic. Cardiovascular - irregular rhythm. Normal rate. Murmur (+) Respiratory - Normal lung expansion, Normal respiratory effort, No respiratory distress, no use of accessory muscle. Bibasilar crackles. No wheezing. No rhonchi Gastrointestinal - NT / ND; +BS; No rebound or guarding Extremities - Bilateral pitting edema Musculoskeletal - Normal inspection, normal ROM Skin - Warm/Dry Neurological - Alert & oriented x3. Psychological - Depressed affect Results Labs 07/07/23 12:54 07/07/23 12:54 Labs: Laboratory Results - last 24 hr 07/07/23 12:54 MCV 94.7 MCH 30.7 MCHC 32.4 RDW 15.9 Plt Count 168 MPV 10.4 Immature Gran % (Auto) 0.5 H Neut % (Auto) 80.2 H Lymph % (Auto) 5.1 L [place] % (Auto) 12.1 H Eos % (Auto) 1.6 Baso % (Auto) 0.5 Lymph # (Auto) 0.3 L [place] # (Auto) 0.8 Eos # (Auto) 0.1 Baso # (Auto) 0.0 Abs Immat Gran (auto) 0.03 Absolute Neuts (auto) 5.2 Absolute Nucleated RBC 0.000 Nucleated RBC % (auto) 0.0 PT 22.3 H INR 1.8 H APTT 49.6 H Anion Gap 11 L Estim Creat Clear Calc 19.2 Estimated GFR 23 Random Glucose 117 H Calcium 9.0 Total Bilirubin 2.2 H Direct Bilirubin 0.4 AST 26 ALT 20 Alkaline Phosphatase 117 B-Natriuretic Peptide 725 H Total Protein 7.5 Albumin 3.2 L COVID-19 (LOGAN) Negative COVID-19 Clin Com See Note Influenza Type A (RAJIV) Negative Influenza Type B (RAJIV) Negative Influenza A & B Note See Note Imaging Radiologist's Impressions: Impressions Chest X-Ray 07/07/23 12:32 IMPRESSION: 1. Interval development of bibasilar radiopacities, right greater than left which may reflect atelectasis versus evolving infectious/inflammatory etiology. 2. Trace right-sided pleural effusion. 3. Chronic reticular and interstitial prominence. Assessment and Plan (1) Acute respiratory failure with hypoxia: Status: Acute (2) Acute systolic (congestive) heart failure: Status: Acute Plan Ethan Macias is a 83 years old man with past medical history significant for CAD s/p and HFrEF s/p biventricular ICD placement admitted with: Hypoxic respiratory failure secondary to acute on chronic systolic and diastolic congestive heart failure/small right pleural effusion in the setting of underlying severe MR and pulmonary hypertension. ?Infectious/inflammatory process Admit to hospitalist service. Telemetry. Pulse oximetry. Continue supplemental oxygen via nasal cannula to keep oxygen saturation above 90%. Continue Lasix IV. Hold Bumex. Continue carvedilol and nitro patch. in 2 days. Cardiology consult for further recommendations. Chronic kidney disease, stage 3. Renal function stable. Continue to monitor renal function. Avoid nephrotoxic agents. Chronic anemia, hemoglobin is trending down. Will continue to monitor for now. If continue to drop we will consider to obtain GI consult. Hyperlipidemia. Continue atorvastatin. Type 2 diabetes mellitus. Continue glimepiride and insulin sliding scale. Blood glucose monitoring before meals and bedtime. Chronic atrial fibrillation, rate-controlled. Continue carvedilol and Xarelto. Gout. Continue allopurinol and colchicine. History of TIA. Continue Xarelto and atorvastatin. Elevated INR. Secondary to Xarelto. Essential hypertension. Continue carvedilol and hydralazine. GERD. Pepcid. DVT prophylaxis: Xarelto. Code status: Full. Patient will need hospitalization for at least 2 midnight for acute congestive heart failure treatment with IV diuresis and specialty evaluation. Quality Stroke Does the patient have a stroke diagnosis?: No VTE Prior VTE?: No VTE Risk Level:: Medical - moderate - high VTE Device Contraindication: N/A - Device Ordered VTE Drug Contraindication: N/A - Med Ordered
[2023-07-08 06:17] LABS: MANUAL DIFF FLAG NO
[2023-07-08 06:42] LABS: Alanine Aminotransferase 23 U/L (0-40); Albumin Level 3.1 g/dL (3.5-5.0); Alkaline Phosphatase 117 U/L (39-117); Anion Gap 17 (12-20); Aspartate Amino Transferase 38 U/L (5-37); Bilirubin Total 2.3 mg/dL (0.0-1.0); Blood Urea Nitrogen 46 mg/dL (9-16); Calcium 9.2 mg/dL (8.4-10.2); Carbon Dioxide 20 mmol/L (22-29); Chloride 104 mmol/L (96-108); Creatinine Clr Calc Pharmacy 20.9; Estimated Glomerular Filt Rate 25; Potassium 3.8 mmol/L (3.3-5.1); Sodium 137 mmol/L (135-145); Total Protein 7.8 g/dL (6.5-8.0)
[2023-07-08 06:44] LABS: Basophils Absolute Auto 0.1 X10*3/uL (0.0-0.2); Basophils Percent Auto 0.5 % (0-2); Eosinophils Absolute Auto 0.1 X10*3/uL (0.0-0.4); Eosinophils Percent Auto 1.4 % (0-4); Hemoglobin 11.5 g/dl (14.0-18.0); Imm Gran Abs Auto 0.06 X10*3/uL (0.00-0.03); Imm Gran Pct Auto 0.6 % (0.0-0.4); Lymphocytes Absolute Auto 0.5 X10*3/uL (1.2-4.9); Lymphocytes Percent Auto 4.8 % (20-40); Mean Corpuscular HGB Conc 32.9 g/dl (31.0-36.0); Mean Corpuscular Hemoglobin 31.3 pg (27.0-33.0); Mean Corpuscular Volume 95.4 fL (80.0-98.0); Monocytes Percent Auto 10.6 % (2-11); Neutrophils Absolute Auto 7.8 x10*3/uL (2.0-8.3); Neutrophils Percent Auto 82.1 % (45-73); Platelet Count 170 X10*3/uL (160-400); Red Blood Count 3.67 X10*6/uL (4.60-5.80); Red Cell Distribution Width 15.9 % (11.0-16.0); White Blood Count 9.5 X10*3/uL (4.8-10.8)
[2023-07-08 06:45] LABS: Glucose Random 45 mg/dL (60-115)
--- NOTE | 2023-07-08 06:47 | PC.NURSE ---
Pts glucose 45. Dr Ly aware. Plan of care ongoing.
[2023-07-08 06:49] VITALS: BP 131/62; PULSE 73; RESP 17; TEMP 36.6; O2SAT 98
[2023-07-08] MEDS: Dextrose 50 % 25 GM/50 ML SYRINGE IVPUSH (06:52)
[2023-07-08] MEDS: Lidocaine HCl 2 % Urojet 10 ML JEL.PF.APP TOPICAL (07:04)
[2023-07-08 07:56] LABS: Glucose, Whole Blood 158 mg/dL (60-115)
[2023-07-08] MEDS: 0.9 % Sodium Chloride Flush 3 ML SYRINGE IVFLUSH ×2 (10:22→17:05)
[2023-07-08] MEDS: Atorvastatin Calcium 80 MG TABLET PO (10:22)
[2023-07-08] MEDS: carvediloL 3.125 MG TABLET PO ×2 (10:23→23:12)
[2023-07-08] MEDS: Multivitamin TABLET 1 TAB PO (10:23)
[2023-07-08] MEDS: Colchicine 0.6 MG TABLET 0.3 MG PO (10:23)
[2023-07-08] MEDS: allopurinoL 100 MG TABLET PO (10:23)
[2023-07-08] MEDS: Famotidine 20 MG TABLET PO (10:23)
[2023-07-08] MEDS: Furosemide 100 MG/10 ML VIAL 60 MG IVPUSH ×2 (10:25→18:22)
[2023-07-08 10:30] LABS: Glucose, Whole Blood 174 mg/dL (60-115)
--- NOTE | 2023-07-08 10:32 | HO.PM.IMPN ---
Subjective Subjective Date of Service: 07/08/23 Interval History: Seen and evaluated this morning Feels better since coming to the hospital Denies any fever or chest pain On O2 supplement Review of Systems Review of Systems: Yes all other systems are reviewed and are negative Physical Exam Vital Signs: Vital Signs: Last Vital Signs Temp 97.8 F 07/08/23 06:49 Pulse 73 07/08/23 06:49 Resp 17 07/08/23 06:49 BP 131/62 07/08/23 06:49 Pulse Ox 98 07/08/23 06:49 O2 Del Method Nasal Cannula 07/08/23 06:49 O2 Flow Rate 2 07/08/23 06:49 BMI result Body Mass Index 26.8 Const: Other: Constitutional : Awake, interactive, not in distress Neck : Normal inspection, Supple Cardiovascular : RRR, no JVP, trace lower extremity edema Respiratory : good bilateral air entry, fine basal bilateral crackles, wheezes or rhonchi Gastrointestinal: soft, lax, Normal bowel sounds, Non tender Skin : Warm, Dry Neurological : Alert & oriented x3, No focal deficit Objective Data Active Medications Acetaminophen (Acetaminophen 325 Mg Tablet) 975 mg PO Q6H PRN PRN Reason: Pain, Mild (Pain Scale 1-3) Allopurinol (Allopurinol 100 Mg Tablet) 100 mg PO DAILY [facility] [place] Last Admin: 07/08/23 10:23 Dose: 100 mg Documented By: CHRIS Atorvastatin Calcium (Atorvastatin Calcium 80 Mg Tablet) 80 mg PO DAILY [facility] Last Admin: 07/08/23 10:22 Dose: 80 mg Documented By: CHRIS Carvedilol (Carvedilol 3.125 Mg Tablet) 3.125 mg PO BID [facility]; Protocol Last Admin: 07/08/23 10:23 Dose: 3.125 mg Documented By: CHRIS Colchicine (Colchicine 0.6 Mg Tablet) 0.3 mg PO DAILY [facility] [place] Last Admin: 07/08/23 10:23 Dose: 0.3 mg Documented By: CHRIS Dextrose (Dextrose 50 % 25 Gm/50 Ml Syringe) 25 gm IVPUSH Q15M PRN; Protocol PRN Reason: per Hypoglycemia Standing Ord. Famotidine (Famotidine 20 Mg Tablet) 20 mg PO DAILY [facility] [place] Last Admin: 07/08/23 10:23 Dose: 20 mg Documented By: CHRIS Furosemide (Furosemide 100 Mg/10 Ml Vial) 60 mg IVPUSH DAILY [facility]; Protocol Last Admin: 07/08/23 10:25 Dose: 60 mg Documented By: CHRIS Gabapentin (Gabapentin 100 Mg Capsule) 100 mg PO BEDTIME [facility] [place] Glipizide (Glipizide 10 Mg Tablet) 10 mg PO DAILY [facility] [place] Glucose (Glucose Gel 15 Gm Gel..Gram.) 15 gm PO Q15M PRN; Protocol PRN Reason: per Hypoglycemia Standing Ord. Hydralazine HCl (Hydralazine Hcl 10 Mg Tablet) 10 mg PO BID [facility] [place]; Protocol Insulin Human Lispro (Insulin Lispro 100 Unit/Ml 3 Ml Vial) 0 unit SUBCUT QIDACHS [facility] [place]; Protocol Last Admin: 07/08/23 09:16 Dose: Not Given Documented By: CHRIS Non-Admin Reason: hypoglycemia Multivitamins/Vitamin C (Multivitamin Tablet) 1 tab PO DAILY [facility] [place] Last Admin: 07/08/23 10:23 Dose: 1 tab Documented By: CHRIS Nitroglycerin (Nitroglycerin 0.4 Mg Patch.Td24) 0.4 mg TRANSDERMA DAILY [facility]; Protocol Rivaroxaban (Rivaroxaban 15 Mg Tablet) 15 mg PO DAILY@1800 [facility] Ropinirole HCl (Ropinirole Hcl 0.25 Mg Tablet) 0.25 mg PO BID [facility] [place] Sitagliptin Phosphate (Sitagliptin Phosphate 50 Mg Tablet) 50 mg PO DAILY [facility] [place] Sodium Chloride (0.9 % Sodium Chloride Flush 3 Ml Syringe) 3 ml IVFLUSH QSHIFT [facility] Last Admin: 07/08/23 10:22 Dose: 3 ml Documented By: CHRIS Tamsulosin HCl (Tamsulosin Hcl 0.4 Mg Capsule) 0.4 mg PO BEDTIME [facility] Labs 07/08/23 06:10 07/08/23 06:10 Labs: Laboratory Results - last 24 hr 07/07/23 07/08/23 07/08/23 12:54 06:10 07:51 MCV 94.7 95.4 MCH 30.7 31.3 MCHC 32.4 32.9 RDW 15.9 15.9 Plt Count 168 170 MPV 10.4 11.0 Immature Gran % (Auto) 0.5 H 0.6 H Neut % (Auto) 80.2 H 82.1 H Lymph % (Auto) 5.1 L 4.8 L [place] % (Auto) 12.1 H 10.6 Eos % (Auto) 1.6 1.4 Baso % (Auto) 0.5 0.5 Lymph # (Auto) 0.3 L 0.5 L [place] # (Auto) 0.8 1.0 Eos # (Auto) 0.1 0.1 Baso # (Auto) 0.0 0.1 Abs Immat Gran (auto) 0.03 0.06 H Absolute Neuts (auto) 5.2 7.8 Absolute Nucleated RBC 0.000 0.000 Nucleated RBC % (auto) 0.0 0.0 PT 22.3 H INR 1.8 H APTT 49.6 H Anion Gap 11 L 17 Estim Creat Clear Calc 19.2 20.9 Estimated GFR 23 25 POC Glucose 158 H Random Glucose 117 H 45 L* Calcium 9.0 9.2 Total Bilirubin 2.2 H 2.3 H Direct Bilirubin 0.4 AST 26 38 H ALT 20 23 Alkaline Phosphatase 117 117 B-Natriuretic Peptide 725 H Total Protein 7.5 7.8 Albumin 3.2 L 3.1 L COVID-19 (LOGAN) Negative COVID-19 Clin Com See Note Influenza Type A (RAJIV) Negative Influenza Type B (RAJIV) Negative Influenza A & B Note See Note 07/08/23 10:21 MCV MCH MCHC RDW Plt Count MPV Immature Gran % (Auto) Neut % (Auto) Lymph % (Auto) [place] % (Auto) Eos % (Auto) Baso % (Auto) Lymph # (Auto) [place] # (Auto) Eos # (Auto) Baso # (Auto) Abs Immat Gran (auto) Absolute Neuts (auto) Absolute Nucleated RBC Nucleated RBC % (auto) PT INR APTT Anion Gap Estim Creat Clear Calc Estimated GFR POC Glucose 174 H Random Glucose Calcium Total Bilirubin Direct Bilirubin AST ALT Alkaline Phosphatase B-Natriuretic Peptide Total Protein Albumin COVID-19 (LOGAN) COVID-19 Clin Com Influenza Type A (RAJIV) Influenza Type B (RAJIV) Influenza A & B Note Assessment and Plan (1) Acute systolic (congestive) heart failure: Status: Acute (2) Edema, peripheral: Status: Acute (3) Congestive heart failure: Status: Acute Plan Ethan Macias is a 83 years old man with past medical history significant for CAD s/p and HFrEF s/p biventricular ICD placement admitted with: # Acute Hypoxic respiratory failure secondary to acute on chronic systolic and diastolic congestive heart failure Keep on Telemetry. Pulse oximetry. Titrate O2 down as tolerated Lasix IV. Hold Bumex. Continue carvedilol and nitro patch Hold Jardiance Cardiology consult pending Follow I\O, BNP # Chronic kidney disease, stage 3. Renal function stable. Continue to monitor renal function. Avoid nephrotoxic agents. # Chronic anemia Stable at 11.5 today # Hyperlipidemia. Continue atorvastatin. # Type 2 diabetes mellitus. Continue glimepiride and insulin sliding scale. Blood glucose monitoring before meals and bedtime. # Chronic atrial fibrillation, rate-controlled. Continue carvedilol and Xarelto. # Gout. Continue allopurinol and colchicine. # History of TIA. Continue Xarelto and atorvastatin. # Elevated INR. Secondary to Xarelto. # Essential hypertension. Continue carvedilol and hydralazine. # GERD. Pepcid. DVT prophylaxis: Xarelto. Code status: Full. Patient will need hospitalization overnight for acute congestive heart failure treatment with IV diuresis and specialty evaluation. Quality Stroke Does the patient have a stroke diagnosis?: No VTE Prior VTE?: No VTE Risk Level:: Medical - moderate - high VTE Device Contraindication: N/A - Device Ordered VTE Drug Contraindication: N/A - Med Ordered
[2023-07-08 11:11] LABS: Estimated Average Glucose 126 mg/dL
[2023-07-08] MEDS: rOPINIRole HCL 0.25 MG TABLET PO ×2 (11:12→23:11)
[2023-07-08] MEDS: Nitroglycerin 0.4 MG PATCH.TD24 TRANSDERMA (11:12)
[2023-07-08] MEDS: glipiZIDE 10 MG TABLET PO (11:12)
[2023-07-08] MEDS: hydrALAZINE HCl 10 MG TABLET PO (11:12)
[2023-07-08 11:58] LABS: Glucose, Whole Blood 146 mg/dL (60-115)
--- NOTE | 2023-07-08 11:59 | P.CONCA_ITS ---
History of Present Illness History of Present Illness Date of Service: 07/08/23 Requesting physician: Praful Stauffer Consult reason: congestive heart failure Chief complaint: Acute on Chronic Systolic CHF Narrative: I was consulted to see Ethan in cardiology consultation today for recurrent decompensated congestive heart failure. Patient 83-year-old male with advanced systolic heart failure with severe LV systolic dysfunction, with poorly functioning LV lead and pacing with suboptimal Bi V pacing which has led to progressive heart failure syndrome, chronic kidney disease, advancing age as well as deconditioning, CAD status post remote coronary artery bypass grafting, chronic atrial fibrillation. Patient presented with weight gain of about 1-1/2 lb on Sunday morning and subsequently through the day had worsening shortness of breath and nighttime at severe orthopnea and came to the hospital yesterday. Since yesterday he is received IV Lasix has responded well and says that he feels much better compared to when he came in. He said the oral torsemide not working for him as well. Bumetanide was working better. He has an appointment with Cardiac electrophysiology in July to upgrade his Bi V device with a dysfunctional LV lead causing in adequate cardiac resynchronization therapy. Patient denies any change in his dietary habits. Review of Systems 2 Constitutional: Constitutional: Reports weakness Eyes: Eyes: Reports no additional eye complaints Cardiovascular: Cardiovascular: Denies chest pain, Denies rapid heart rate, Reports leg edema, Denies lightheadedness, Denies Loss of Consciousness, Denies palpitations, Reports dyspnea on exertion and Reports orthopnea Respiratory: Respiratory: Reports dyspnea on exertion Gastrointestinal: Gastrointestinal: Reports no additional gastrointestinal complaints Musculoskeletal: Musculoskeletal: Reports no additional musculoskeletal complaints Neurologic: Reports system reviewed and no additional complaints, except as documented and Reports weakness Endocrine: Endocrine: Reports no additional endocrine complaints and Denies palpitations PMFSH Past Medical History Medical History Chronic kidney disease (CKD) stage G3b/A1, moderately decreased glomerular filtration rate (GFR) between 30-44 mL/min/1.73 square meter and albuminuria creatinine ratio less than 30 mg/g Chronic atrial fibrillation Congestive heart failure Heart failure with reduced ejection fraction Acute on chronic systolic (congestive) heart failure CAD (coronary artery disease) Biventricular ICD (implantable cardioverter-defibrillator) in place Ischemic cardiomyopathy History of GI bleed Aortic aneurysm TIA (transient ischemic attack) Gout Obesity (BMI 30-39.9) GERD (gastroesophageal reflux disease) Hypercholesterolemia Type 2 diabetes mellitus with hyperglycemia Hypertension Family History Family History Father CVD (cardiovascular disease) Hypertension Mother Cancer Surgical History Surgical History History of cardiac defibrillator placement Coronary artery disease involving coronary bypass graft History of cholecystectomy Social History Social History Household Members: Children Housing: House Do you presently have visiting nurse or other home services: No Alcohol intake: never Comment: pt refused fall prevention measures Patient Tobacco Use Status: Former Tobacco user Years Smoked: quit 1986 Smoked in Last 30 Days: No e-Cigarette/Vaping Use: Never Used Second Hand Smoke Exposure: No Use of substances other than those prescribed or required for medical reasons: No Advance Directives: Yes Advance Directives on File: Yes Advance Directives Date on File: 06/19/22 Nutrition Risks: No Nutritional Risk service: Yes Current occupational status: retired Cognitive needs: No Hearing needs: No Vision needs: Yes Meds Allergies Allergy/AdvReac Type Severity Reaction Status Date / Time dabigatran etexilate Allergy Unknown indigestion Verified 07/07/23 12:04 [Pradaxa] sacubitril [From ENTRESTO] Allergy Unknown FEELS LIKE Verified 07/07/23 12:04 HAVING A HEART ATTACK valsartan [From ENTRESTO] Allergy Unknown FEELS LIKE Verified 07/07/23 12:04 HAVING A HEART ATTACK Active Medications: Current Medications Acetaminophen (Acetaminophen 325 Mg Tablet) 975 mg PO Q6H PRN PRN Reason: Pain, Mild (Pain Scale 1-3) Allopurinol (Allopurinol 100 Mg Tablet) 100 mg PO DAILY [facility] Last Admin: 07/08/23 10:23 Dose: 100 mg Atorvastatin Calcium (Atorvastatin Calcium 80 Mg Tablet) 80 mg PO DAILY [facility] Last Admin: 07/08/23 10:22 Dose: 80 mg Carvedilol (Carvedilol 3.125 Mg Tablet) 3.125 mg PO BID [facility]; Protocol Last Admin: 07/08/23 10:23 Dose: 3.125 mg Colchicine (Colchicine 0.6 Mg Tablet) 0.3 mg PO DAILY [facility] Last Admin: 07/08/23 10:23 Dose: 0.3 mg Dextrose (Dextrose 50 % 25 Gm/50 Ml Syringe) 25 gm IVPUSH Q15M PRN; Protocol PRN Reason: per Hypoglycemia Standing Ord. Famotidine (Famotidine 20 Mg Tablet) 20 mg PO DAILY [facility] Last Admin: 07/08/23 10:23 Dose: 20 mg Furosemide (Furosemide 100 Mg/10 Ml Vial) 60 mg IVPUSH DAILY [facility]; Protocol Last Admin: 07/08/23 10:25 Dose: 60 mg Gabapentin (Gabapentin 100 Mg Capsule) 100 mg PO BEDTIME [facility] Glipizide (Glipizide 10 Mg Tablet) 10 mg PO DAILY [facility] Last Admin: 07/08/23 11:12 Dose: 10 mg Glucose (Glucose Gel 15 Gm Gel..Gram.) 15 gm PO Q15M PRN; Protocol PRN Reason: per Hypoglycemia Standing Ord. Hydralazine HCl (Hydralazine Hcl 10 Mg Tablet) 10 mg PO BID [facility]; Protocol Last Admin: 07/08/23 11:12 Dose: 10 mg Insulin Human Lispro (Insulin Lispro 100 Unit/Ml 3 Ml Vial) 0 unit SUBCUT QIDACHS [facility]; Protocol Last Admin: 07/08/23 09:16 Dose: Not Given Meclizine HCl (Meclizine Hcl 25 Mg Tablet) 25 mg PO TID PRN PRN Reason: Dizziness Multivitamins/Vitamin C (Multivitamin Tablet) 1 tab PO DAILY [facility] Last Admin: 07/08/23 10:23 Dose: 1 tab Nitroglycerin (Nitroglycerin 0.4 Mg Patch.Td24) 0.4 mg TRANSDERMA DAILY [facility]; Protocol Last Admin: 07/08/23 11:12 Dose: 0.4 mg Rivaroxaban (Rivaroxaban 15 Mg Tablet) 15 mg PO DAILY@1800 [facility] Ropinirole HCl (Ropinirole Hcl 0.25 Mg Tablet) 0.25 mg PO BID [facility] Last Admin: 07/08/23 11:12 Dose: 0.25 mg Sodium Chloride (0.9 % Sodium Chloride Flush 3 Ml Syringe) 3 ml IVFLUSH QSHIFT [facility] Last Admin: 07/08/23 10:22 Dose: 3 ml Tamsulosin HCl (Tamsulosin Hcl 0.4 Mg Capsule) 0.4 mg PO BEDTIME [facility] Home Medications Medication Instructions Recorded Confirmed Last Taken Type multivitamin 1 tab PO DAILY 04/12/20 07/08/23 05/21/23 History gabapentin 100 mg capsule 100 mg PO BEDTIME 06/27/22 07/08/23 05/20/23 History meclizine 25 mg tablet 25 mg PO TID PRN Dizziness 01/09/23 07/08/23 05/21/23 History atorvastatin 80 mg tablet 80 mg PO DAILY 07/07/23 07/08/23 07/07/23 History sennosides 8.6 mg-docusate sodium 1 tab-cap PO BEDTIME PRN 07/08/23 07/08/23 Unknown History 50 mg tablet (Senna-S) Constipation Physical Exam 2 Vital Signs: Vital Signs: Last Vital Signs Temp 97.8 F 07/08/23 06:49 Pulse 73 07/08/23 06:49 Resp 17 07/08/23 06:49 BP 131/62 07/08/23 06:49 Pulse Ox 98 07/08/23 06:49 O2 Del Method Nasal Cannula 07/08/23 06:49 O2 Flow Rate 2 07/08/23 06:49 BMI result Body Mass Index 26.8 Const: General: cooperative, comfortable, alert and awake Nutritional Appearance: overweight and other (Frail appearing) Orientation/consciousness: patient oriented x3 HEENT: Head: Yes normocephalic and Yes atraumatic Neck: Neck: Yes trachea midline, Yes supple and Yes JVD Resp: Effort & Inspection: normal respiratory effort Auscultation: clear to auscultation bilaterally Cardio: Palpation: abnormal PMI displaced PMI Rate: regular rate Rhythm: regular rhythm Heart sounds: S1 normal heart sound present, S2 normal heart sound present, no click, no gallops and no murmurs GI: Auscultation: normal bowel sounds Skin: General skin exam: no rashes or lesions noted Neuro: General: patient oriented x3 and no focal motor deficits Extrem: General: Yes no clubbing, cyanosis or edema Objective Labs and Meds 07/08/23 06:10 07/08/23 06:10 Lab results: Laboratory Results - last 24 hr 07/07/23 07/08/23 07/08/23 12:54 06:10 07:51 WBC 6.4 9.5 RBC 3.23 L 3.67 L Hgb 9.9 L 11.5 L Hct 30.6 L 35.0 L MCV 94.7 95.4 MCH 30.7 31.3 MCHC 32.4 32.9 RDW 15.9 15.9 Plt Count 168 170 MPV 10.4 11.0 Immature Gran % (Auto) 0.5 H 0.6 H Neut % (Auto) 80.2 H 82.1 H Lymph % (Auto) 5.1 L 4.8 L Baxter % (Auto) 12.1 H 10.6 Eos % (Auto) 1.6 1.4 Baso % (Auto) 0.5 0.5 Lymph # (Auto) 0.3 L 0.5 L Baxter # (Auto) 0.8 1.0 Eos # (Auto) 0.1 0.1 Baso # (Auto) 0.0 0.1 Abs Immat Gran (auto) 0.03 0.06 H Absolute Neuts (auto) 5.2 7.8 Absolute Nucleated RBC 0.000 0.000 Nucleated RBC % (auto) 0.0 0.0 PT 22.3 H INR 1.8 H APTT 49.6 H Sodium 138 137 Potassium 3.7 3.8 Chloride 101 104 Carbon Dioxide 30 H 20 L Anion Gap 11 L 17 BUN 49 H 46 H Creatinine 2.71 H 2.50 H Estim Creat Clear Calc 19.2 20.9 Estimated GFR 23 25 POC Glucose 158 H Random Glucose 117 H 45 L* Estimat Average Glucose 126 Hemoglobin A1c % 6.0 Calcium 9.0 9.2 Total Bilirubin 2.2 H 2.3 H Direct Bilirubin 0.4 AST 26 38 H ALT 20 23 Alkaline Phosphatase 117 117 Troponin I High Sens 24.0 B-Natriuretic Peptide 725 H Total Protein 7.5 7.8 Albumin 3.2 L 3.1 L COVID-19 (LOGAN) Negative COVID-19 Clin Com See Note Influenza Type A (RAJIV) Negative Influenza Type B (RAJIV) Negative Influenza A & B Note See Note 07/08/23 07/08/23 10:21 11:54 WBC RBC Hgb Hct MCV MCH MCHC RDW Plt Count MPV Immature Gran % (Auto) Neut % (Auto) Lymph % (Auto) Baxter % (Auto) Eos % (Auto) Baso % (Auto) Lymph # (Auto) Baxter # (Auto) Eos # (Auto) Baso # (Auto) Abs Immat Gran (auto) Absolute Neuts (auto) Absolute Nucleated RBC Nucleated RBC % (auto) PT INR APTT Sodium Potassium Chloride Carbon Dioxide Anion Gap BUN Creatinine Estim Creat Clear Calc Estimated GFR POC Glucose 174 H 146 H Random Glucose Estimat Average Glucose Hemoglobin A1c % Calcium Total Bilirubin Direct Bilirubin AST ALT Alkaline Phosphatase Troponin I High Sens B-Natriuretic Peptide Total Protein Albumin COVID-19 (LOGAN) COVID-19 Clin Com Influenza Type A (RAJIV) Influenza Type B (RAJIV) Influenza A & B Note EKG shows ventricular paced rhythm with underlying atrial fibrillation Imaging Radiologist's impression: Impressions Chest X-Ray 07/07/23 12:32 IMPRESSION: 1. Interval development of bibasilar radiopacities, right greater than left which may reflect atelectasis versus evolving infectious/inflammatory etiology. 2. Trace right-sided pleural effusion. 3. Chronic reticular and interstitial prominence. Assessment and Plan (1) Acute systolic (congestive) heart failure: Status: Acute Acute decompensated systolic heart failure inpatient with multiple comorbidities including severe LV systolic dysfunction, suboptimal cardiac resynchronization therapy, chronic atrial fibrillation, chronic kidney disease, deconditioning. He is responded to IV diuretics. Continue IV diuretics as he still appears to be clinically fluid overloaded. Trend BMP and BNP tomorrow. Increase hydralazine to 25 mg b.i.d. and add Isordil 5 mg b.i.d.. Continue carvedilol therapy. He was doing extremely well with optimal cardiac resynchronization therapy and since his LV lead pacing thresholds are gone up and he has not tolerated this well he has developed heart failure syndrome. He also says that he has not responded to p.o. torsemide and responded better to Bumex. On discharge this time will switch him to p.o. Bumex 2 mg b.i.d. with p.r.n. metolazone 2.5 mg daily when he has weight gain. Will try to hasten his outpatient appointment with electrophysiology service. He requires continued diuresis. Will follow with you Procedures Date of Service Date of Service: 07/08/23
[2023-07-08 12:54] VITALS: PULSE 70; RESP 20; O2SAT 99
--- NOTE | 2023-07-08 13:00 | PC.NURSE ---
pt reports some leg cranmping but has no pain or discomfort otherwise. remains on 2L o2 - satting well in the high 90s.
--- NOTE | 2023-07-08 14:30 | MHC.CM.PN ---
IMM 07/08/23, Pt lives with his 2 sons, he is independent, does not use home health services or have medical equipment. HCP is on file, his son Reji. He is a , does not use [facility]. PCP verified: Kishan Paez. Family to transport home upon DC. CM will follow and assist with DC plan.
[2023-07-08 14:34] LABS: CDiff Gene PCR POSITIVE (Negative)
[2023-07-08 15:13] LABS: CDIFF Internal ctrl Dots and bkg OK (V); CDiff Toxin Negative (Negative)
[2023-07-08 18:21] LABS: Glucose, Whole Blood 175 mg/dL (60-115)
[2023-07-08 20:00] VITALS: BP 119/53; PULSE 75; RESP 18; TEMP 36.3; O2SAT 96
[2023-07-08] MEDS: Isosorbide Dinitrate 5 MG TABLET PO (23:12)
[2023-07-08] MEDS: hydrALAZINE HCl 25 MG TABLET PO (23:12)
[2023-07-08] MEDS: Gabapentin 100 MG CAPSULE PO (23:12)
[2023-07-08] MEDS: Tamsulosin HCL 0.4 MG CAPSULE PO (23:34)
[2023-07-08 23:42] LABS: Glucose, Whole Blood 113 mg/dL (60-115)
[2023-07-09] VITALS: BP 94/50; PULSE 77; RESP 20; TEMP 36.6; O2SAT 93
[2023-07-09 03:59] VITALS: BP 103/51; PULSE 75; RESP 20; TEMP 36.9; O2SAT 94
[2023-07-09 07:02] LABS: Anion Gap 13 (12-20); Blood Urea Nitrogen 52 mg/dL (9-16); Calcium 8.7 mg/dL (8.4-10.2); Carbon Dioxide 29 mmol/L (22-29); Chloride 101 mmol/L (96-108); Creatinine Clr Calc Pharmacy 19.9; Estimated Glomerular Filt Rate 24; Glucose Random 78 mg/dL (60-115); Potassium 3.4 mmol/L (3.3-5.1); Sodium 140 mmol/L (135-145)
[2023-07-09 07:03] LABS: B Type Natriuretic Peptide 908 pg/mL (<100)
[2023-07-09 07:40] VITALS: BP 114/53; PULSE 79; RESP 18; TEMP 36.9; O2SAT 92
[2023-07-09 07:49] LABS: Glucose, Whole Blood 91 mg/dL (60-115)
[2023-07-09 08:41] VITALS: BP 114/53; PULSE 79; O2SAT 92
[2023-07-09] MEDS: allopurinoL 100 MG TABLET PO (09:07)
[2023-07-09] MEDS: Atorvastatin Calcium 80 MG TABLET PO (09:07)
[2023-07-09] MEDS: carvediloL 3.125 MG TABLET PO (09:07)
[2023-07-09] MEDS: Colchicine 0.6 MG TABLET 0.3 MG PO (09:07)
[2023-07-09] MEDS: Multivitamin TABLET 1 TAB PO (09:08)
[2023-07-09] MEDS: Nitroglycerin 0.4 MG PATCH.TD24 TRANSDERMA (09:08)
[2023-07-09] MEDS: rOPINIRole HCL 0.25 MG TABLET PO (09:08)
[2023-07-09] MEDS: 0.9 % Sodium Chloride Flush 3 ML SYRINGE IVFLUSH (09:08)
[2023-07-09] MEDS: Famotidine 20 MG TABLET PO (09:08)
[2023-07-09] MEDS: Isosorbide Dinitrate 5 MG TABLET PO (09:08)
[2023-07-09] MEDS: Furosemide 100 MG/10 ML VIAL 60 MG IVPUSH (09:09)
--- NOTE | 2023-07-09 09:27 | MHC.CM.PN ---
PT MEDICALLY CLEARED FOR DC HOME SELF CARE W/[facility] FOR TRANSPORT.
--- NOTE | 2023-07-09 09:29 | PM.DS ---
DS: Providers Provider Date of Service: 07/09/23 Date of admission: 07/07/23 23:44 Primary care physician: Kishan Paez MD Consults: 07/07/23 23:48 Consult to Cardiology Routine [place]ing [place] [facility] [place] Reason for consultation: Acute on chronic systolic CHF Has provider been notified: Yes 07/08/23 04:39 Consult to Cardiology Routine Consulting Provider[place] [facility] [place] [facility] Reason for consultation: Acute congestive heart failure Has provider been notified: Yes DS: Diagnosis Discharge Diagnosis (1) Acute systolic (congestive) heart failure: Status: Acute (2) Edema, peripheral: Status: Acute (3) Hypoxia: Status: Acute DS: Summary Hospital Course Hospital Course: Admission note HPI Ethan Macias is a 83 years old man with past medical history significant for HFrEF (EF 20 %) + chronic diastolic heart failure, severe MR, pulmonary hypertension, CAD s/p CABG, CKD stage 3, ICD, chronic atrial fibrillation on Xarelto, TIA, GERD, gout, hyperlipidemia, type 2 diabetes, essential hypertension and aortic aneurysm presents to the hospital complaining of worsening shortness of breath over the last 3 days that increases with exertion, lower extremity swelling and dry cough. He denied chest pain, palpitations, headache fevers chills. He denies any acute gastrointestinal or genitourinary symptoms. He denied tobacco smoking, alcohol abuse or illicit drug use. Patient mentioned that he was taking furosemide and was changed to Bumex. However he said that he feels that Bumex is not helping him. In the ED, he was found to have an oxygen saturation of 86% on room air. He is currently requiring 2 liters/minute supplemental oxygen via nasal cannula. There is no tachycardia, hypotension or fever. There is also trace right-sided pleural effusion and chronic reticular interstitial prominence. Blood workup was remarkable for anemia (Hgb decreasing 10.8 --> 9.9 over the last 2 weeks) and elevated BNP 720 (prior 632). Creatinine is 2.7 which is around baseline. INR is 1.8. There is no leukocytosis. CXR showed bibasilar opacities reflecting atelectasis versus evolving infection. Hospital course The patient was admitted to the hospital for treatment of acute Hypoxic respiratory failure secondary to acute on chronic systolic and diastolic congestive heart failure. Treated with IV lasix. Kept on Telemetry. Pulse oximetry. as O2 was titrated down as tolerated to room air. Evaluated by mixing engineer who recommended to start Isordil and change diuretic to Bumex on discharge. He was able to ambulate on room air with no dyspnea. Stop Torsemide Start Bumex 2mg twice daily Metolazone as needed for fluid overload To repeat blood test next week To follow with dr Montanez as needed Time Attestation Discharge coordination time: Greater than 30 minutes Quality: Safe Use of Opioids Does Pt have an Active Cancer Diagnosis on the Problem List?: No Quality: Stroke Does the patient have a stroke diagnosis?: No Physical Exam Vital Signs: Vital Signs: Last Vital Signs Temp 98.4 F 07/09/23 07:40 Pulse 79 07/09/23 08:41 Resp 18 07/09/23 07:40 BP 114/53 L 07/09/23 08:41 Pulse Ox 92 07/09/23 08:41 O2 Del Method Room Air 07/09/23 07:40 O2 Flow Rate 2 07/09/23 03:59 BMI result Body Mass Index 26.8 Const: Other: Constitutional : Awake, interactive, not in distress Neck : Normal inspection, Supple Cardiovascular : RRR, no JVP, no lower extremity edema Respiratory : good bilateral air entry, no crackles, wheezes or rhonchi Gastrointestinal: soft, lax, Normal bowel sounds, Non tender Skin : Warm, Dry Neurological : Alert & oriented x3, No focal deficit DS: Data Data Completed and Pending Labs on day of discharge: Laboratory Results - last 24 hr 07/08/23 07/08/23 07/08/23 06:10 10:21 11:25 Sodium Potassium Chloride Carbon Dioxide Anion Gap BUN Creatinine Estim Creat Clear Calc Estimated GFR POC Glucose 174 H Random Glucose Estimat Average Glucose 126 Hemoglobin A1c % 6.0 Calcium B-Natriuretic Peptide C. difficile Tox B Gene POSITIVE A* C. difficile Toxin A&B Negative C. difficile Interpret SEE NOTE 07/08/23 07/08/23 07/08/23 11:54 18:18 23:18 Sodium Potassium Chloride Carbon Dioxide Anion Gap BUN Creatinine Estim Creat Clear Calc Estimated GFR POC Glucose 146 H 175 H 113 Random Glucose Estimat Average Glucose Hemoglobin A1c % Calcium B-Natriuretic Peptide C. difficile Tox B Gene C. difficile Toxin A&B C. difficile Interpret 07/09/23 07/09/23 05:41 07:44 Sodium 140 Potassium 3.4 Chloride 101 Carbon Dioxide 29 Anion Gap 13 BUN 52 H Creatinine 2.62 H Estim Creat Clear Calc 19.9 Estimated GFR 24 POC Glucose 91 Random Glucose 78 Estimat Average Glucose Hemoglobin A1c % Calcium 8.7 B-Natriuretic Peptide 908 H C. difficile Tox B Gene C. difficile Toxin A&B C. difficile Interpret Imaging Chest x-ray: Radiologist's impression: ITS Impressions Chest X-Ray 07/07/23 12:32 IMPRESSION: 1. Interval development of bibasilar radiopacities, right greater than left which may reflect atelectasis versus evolving infectious/inflammatory etiology. 2. Trace right-sided pleural effusion. 3. Chronic reticular and interstitial prominence. Discharge Plan Discharge Anticipated Discharge Date/Time: 07/09/23 09:01 Patient Disposition: Home, Self-Care Discharge Diagnosis: Heart failure exacerbation Referrals: Po,Kishan Flores MD [Primary Care Provider] - 1 Week Discharge Medications: New isosorbide dinitrate 5 mg Tablet 5 mg PO BID Qty: 60 0RF Protocol: Hold for SBP< HOLD for SBP < : 90 bumetanide 2 mg tablet 2 mg PO BID Qty: 60 0RF metolazone 2.5 mg tablet 2.5 mg PO DAILY PRN (Reason: FLuid overload) Qty: 20 0RF Continued Xarelto 15 mg tablet 15 mg PO DAILY@1800 Qty: 90 3RF glimepiride 4 mg tablet 4 mg PO QAM Qty: 90 3RF Januvia 50 mg tablet 50 mg PO DAILY Qty: 90 3RF colchicine [Colcrys] 0.6 mg tablet 0.6 mg PO DAILY 90 Days Qty: 90 3RF allopurinol 100 mg tablet 100 mg PO DAILY Qty: 90 3RF nitroglycerin 0.4 mg/hr patch 24 hour 1 patch transdermal DAILY Qty: 90 3RF tamsulosin [Flomax] 0.4 mg capsule 0.4 mg PO BEDTIME 30 Days Qty: 30 1RF carvedilol 3.125 mg tablet 3.125 mg PO BID 90 Days Qty: 180 3RF Protocol: Hold for SBP/HR < HOLD for SBP < : 90 HOLD for HR < : 60 hydralazine 10 mg tablet 10 mg PO BID 90 Days Qty: 180 3RF gabapentin 100 mg capsule 100 mg PO BEDTIME atorvastatin 80 mg tablet 80 mg PO DAILY sennosides-docusate sodium [Senna-S] 8.6-50 mg tablet 1 tab-cap PO BEDTIME PRN (Reason: Constipation) meclizine 25 mg tablet 25 mg PO TID PRN (Reason: Dizziness) multivitamin Tablet 1 tab PO DAILY ropinirole 0.25 mg tablet 0.25 mg PO BID 90 Days Qty: 180 3RF Discontinued torsemide 20 mg tablet 40 mg PO BID 90 Days Qty: 360 3RF Discharge Orders: Discharge Order (Routine); Ordered 07/09/23 Ordered By: Praful Stauffer Diet: Advance to usual diet Activity on Discharge: As tolerated Stand Alone Forms: Patient Portal Discharge page Other Ambulatory Orders: Basic Metabolic Panel (Routine) Timeframe: 1 Week Facility: [facility] - Location: Laboratory Ordered By: Praful Stauffer Care Plan Goals: Read below Health Concerns: Read below Plan of Treatment: Read below Assessment: You were treated for heart failure exacerbation. Seen by dr Montanez and treated with IV Lasix with good response over the course of hospital stay. Stop Torsemide Start Bumex 2mg twice daily Metolazone as needed for fluid overload To repeat blood test next week To follow with dr Montanez as needed
--- NOTE | 2023-07-09 09:35 | PM.PNCARD ---
Subjective Subjective Date of Service: 07/09/23 Interval history: He states that he is feeling much better. Shortness of breath is much improved. Review of Systems Review of Systems Yes all other systems are reviewed and are negative Constitutional: Reports as per HPI and Reports no additional constitutional complaints Eyes: Reports as per HPI and Denies no additional eye complaints Denies system reviewed and no additional complaints, except as documented and Reports as per HPI Cardiovascular: Reports as per HPI, Reports no additional cardiovascular complaints, Denies acrocyanosis, Denies cool extremities, Denies chest pain, Denies leg edema, Denies lightheadedness, Denies palpitations and Denies dyspnea Respiratory: Reports as per HPI, Denies no additional respiratory complaints and Denies dyspnea Gastrointestinal: Reports as per HPI and Denies no additional gastrointestinal complaints Genitourinary: Reports no additional male genitourinary complaints and Reports as per HPI Musculoskeletal: Reports no additional musculoskeletal complaints and Reports as per HPI Skin/Breast: Reports system reviewed and no additional complaints, except as docu Reports system reviewed and no additional complaints, except as documented and Reports as per HPI Psychiatric: Reports no additional psychiatric complaints and Reports as per HPI Endocrine: Reports no additional endocrine complaints, Reports as per HPI and Denies palpitations Hematologic/Lymphatic: Reports no additional hematologic/lymphatic complaints and Reports as per HPI Allergic/Immunologic: Reports no additional allergic/immunologic complaints and Reports as per HPI Physical Exam Vital Signs: Last Vital Signs Temp 98.4 F 07/09/23 07:40 Pulse 79 07/09/23 08:41 Resp 18 07/09/23 07:40 BP 114/53 L 07/09/23 08:41 Pulse Ox 92 07/09/23 08:41 O2 Del Method Room Air 07/09/23 07:40 O2 Flow Rate 2 07/09/23 03:59 BMI result Body Mass Index 26.8 Const General: comfortable and no acute distress Orientation/consciousness: patient oriented x3 HEENT Other: Unremarkable Head: Yes normal to inspection Neck Neck: Yes normal visual inspection Chest Chest palpation & inspection: normal inspection of the chest Resp Auscultation: clear to auscultation bilaterally Cardio Palpation: normal PMI Heart sounds: S1 normal heart sound present, S2 normal heart sound present, no gallops, Murmur heart sound present systolic II/ and at the right sternal border and no rubs GI Palpation (GI): Soft to palpation Back/Spine/Pelvis Other: unremarkable Skin General skin exam: no rashes or lesions noted Neuro General: patient oriented x3 Extrem General: Yes normal to inspection Psych Mental Status: mental status grossly normal Objective Labs and Meds 07/08/23 06:10 07/09/23 05:41 Lab results: Laboratory Results - last 24 hr 07/08/23 07/08/23 07/08/23 06:10 10:21 11:25 Sodium Potassium Chloride Carbon Dioxide Anion Gap BUN Creatinine Estim Creat Clear Calc Estimated GFR POC Glucose 174 H Random Glucose Estimat Average Glucose 126 Hemoglobin A1c % 6.0 Calcium B-Natriuretic Peptide C. difficile Tox B Gene POSITIVE A* C. difficile Toxin A&B Negative C. difficile Interpret SEE NOTE 07/08/23 07/08/23 07/08/23 11:54 18:18 23:18 Sodium Potassium Chloride Carbon Dioxide Anion Gap BUN Creatinine Estim Creat Clear Calc Estimated GFR POC Glucose 146 H 175 H 113 Random Glucose Estimat Average Glucose Hemoglobin A1c % Calcium B-Natriuretic Peptide C. difficile Tox B Gene C. difficile Toxin A&B C. difficile Interpret 07/09/23 07/09/23 05:41 07:44 Sodium 140 Potassium 3.4 Chloride 101 Carbon Dioxide 29 Anion Gap 13 BUN 52 H Creatinine 2.62 H Estim Creat Clear Calc 19.9 Estimated GFR 24 POC Glucose 91 Random Glucose 78 Estimat Average Glucose Hemoglobin A1c % Calcium 8.7 B-Natriuretic Peptide 908 H C. difficile Tox B Gene C. difficile Toxin A&B C. difficile Interpret Progress Note: A&P Assessment and plan (1) Acute systolic (congestive) heart failure: Status: Acute (2) Acute respiratory failure with hypoxia: Status: Acute (3) Chronic atrial fibrillation: Status: Acute (4) CAD (coronary artery disease): Status: Acute Plan Per most recent echocardiogram, LVEF 20-25% with wall motion abnormalities from ischemic cardiomyopathy. Severe biatrial enlargement. Moderate eccentric mitral regurgitation. Mild aortic stenosis. Moderate pulmonary hypertension. Per input output charting, negative 2.6 L. Clinically, he seems much improved. He states that he is ambulating. It seems we can switch him to p.o.. For diuretic recommendations, can review yesterday's note by . Discharge planning. Follow-up in clinic. Time Spent With Patient Time: Total time managing care of this patient today ____ minutes. Progress Note: Quality Stroke Does the patient have a stroke diagnosis?: No Procedures Date of Service Date of Service: 07/09/23
== END 2023-07-09 11:06 | disposition home or self-care (01) | DRG 291 ==
LOC: HO.ED 23:19 → HO.EDOVER 23:57 → HO.IMC 07-08 17:40
PROVIDERS: Physician Assistant Medical; Admitting Provider Internal Medicine; Emergency Provider Emergency Medicine Emergency Medical Services; PCP Internal Medicine; Visit Provider Student in an Organized Health Care Education/Training Program
DX: I13.0 Hypertensive heart and chronic kidney disease with heart failure and stage 1 through stage 4 chronic kidney disease, or unspecified chronic kidney disease (principal); I50.43 Acute on chronic combined systolic (congestive) and diastolic (congestive) heart failure; J96.01 Acute respiratory failure with hypoxia; I48.20 Chronic atrial fibrillation, unspecified; D63.1 Anemia in chronic kidney disease; I08.0 Rheumatic disorders of both mitral and aortic valves; R79.1 Abnormal coagulation profile; M10.9 Gout, unspecified; I25.5 Ischemic cardiomyopathy; I27.20 Pulmonary hypertension, unspecified; E78.5 Hyperlipidemia, unspecified; N18.30 Chronic kidney disease, stage 3 unspecified; I25.10 Atherosclerotic heart disease of native coronary artery without angina pectoris; Z20.822 Contact with and (suspected) exposure to COVID-19; Z86.73 Personal history of transient ischemic attack (TIA), and cerebral infarction without residual deficits; Z95.810 Presence of automatic (implantable) cardiac defibrillator; Z79.01 Long term (current) use of anticoagulants; Z79.84 Long term (current) use of oral hypoglycemic drugs; Z79.899 Other long term (current) drug therapy
CPT/HCPCS: 36415; 71046; 80048; 80053; 80076; 82947; 83036; 83880; 84484; 85025; 85610; 85730; 87324; 87493; 87502; 87635; 93005; 97162; 99285; C1758; J1940

== ENCOUNTER → 2023-07-07 12:05 | Outpatient (BNV) | payer MEDICARE, OTHER, SELFPAY | PROVIDERS: Admitting Provider Internal Medicine; Emergency Provider Emergency Medicine Emergency Medical Services; PCP Internal Medicine; Visit Provider Internal Medicine Cardiovascular Disease | DX: R07.9 Chest pain, unspecified (principal) | CPT/HCPCS: 93010 ==

== ENCOUNTER → 2023-07-07 23:44 | Outpatient (BNV) | payer MEDICARE, OTHER, SELFPAY | PROVIDERS: Admitting Provider Internal Medicine; Emergency Provider Emergency Medicine Emergency Medical Services; PCP Internal Medicine; Visit Provider Internal Medicine | DX: I50.43 Acute on chronic combined systolic (congestive) and diastolic (congestive) heart failure (principal); J96.01 Acute respiratory failure with hypoxia; R60.0 Localized edema | CPT/HCPCS: 99223; 99239; 99499 ==

== ENCOUNTER → 2023-07-07 23:44 | Outpatient (BNV) | payer MEDICARE, OTHER, SELFPAY | PROVIDERS: Admitting Provider Internal Medicine; Emergency Provider Emergency Medicine Emergency Medical Services; PCP Internal Medicine; Visit Provider Internal Medicine Cardiovascular Disease | DX: I50.21 Acute systolic (congestive) heart failure (principal) | CPT/HCPCS: 99222; 99233 ==

== ENCOUNTER 2023-07-17 07:16 | Outpatient (REF) | payer MEDICARE, OTHER, SELFPAY ==
[2023-07-17 07:35] LABS: MANUAL DIFF FLAG NO
[2023-07-17 07:53] LABS: Basophils Percent Auto 0.5 % (0-2); Eosinophils Absolute Auto 0.1 X10*3/uL (0.0-0.4); Eosinophils Percent Auto 1.6 % (0-4); Hematocrit 33.4 % (42.0-52.0); Hemoglobin 10.6 g/dl (14.0-18.0); Imm Gran Abs Auto 0.04 X10*3/uL (0.00-0.03); Imm Gran Pct Auto 0.5 % (0.0-0.4); Lymphocytes Absolute Auto 0.5 X10*3/uL (1.2-4.9); Lymphocytes Percent Auto 7.1 % (20-40); Mean Corpuscular HGB Conc 31.7 g/dl (31.0-36.0); Mean Corpuscular Hemoglobin 29.9 pg (27.0-33.0); Mean Corpuscular Volume 94.4 fL (80.0-98.0); Mean Platelet Volume 10.4 fL (9.4-12.4); Monocytes Absolute Auto 0.8 X10*3/uL (0.1-1.2); Monocytes Percent Auto 10.9 % (2-11); Neutrophils Absolute Auto 5.8 x10*3/uL (2.0-8.3); Neutrophils Percent Auto 79.4 % (45-73); Platelet Count 217 X10*3/uL (160-400); Red Blood Count 3.54 X10*6/uL (4.60-5.80); White Blood Count 7.4 X10*3/uL (4.8-10.8)
[2023-07-17 08:21] LABS: B Type Natriuretic Peptide 738 pg/mL (<100)
[2023-07-17 08:26] LABS: Alanine Aminotransferase 25 U/L (0-40); Albumin Level 3.5 g/dL (3.5-5.0); Alkaline Phosphatase 123 U/L (39-117); Anion Gap 13 (12-20); Aspartate Amino Transferase 33 U/L (5-37); Bilirubin Total 1.3 mg/dL (0.0-1.0); Blood Urea Nitrogen 59 mg/dL (9-16); Calcium 9.5 mg/dL (8.4-10.2); Carbon Dioxide 32 mmol/L (22-29); Chloride 99 mmol/L (96-108); Cholesterol 91 mg/dL (<200); Estimated Glomerular Filt Rate 25; Glucose Random 89 mg/dL (60-115); HDL Cholesterol 31 mg/dL (>40); Iron 45 mcg/dL (45-160); LDL Cholesterol Calculated 46 mg/dL (<100); Percent Iron Saturation 16 % (15-50); Potassium 3.8 mmol/L (3.3-5.1); Sodium 140 mmol/L (135-145); Total Iron Binding Capacity 275 mcg/dL (228-428); Total Protein 8.3 g/dL (6.5-8.0); Triglycerides 73 mg/dL (<150); Unsaturated Iron Binding 230 ug/dL
[2023-07-17 08:42] LABS: Ferritin 385 ng/mL (20-250); Free T4 (Free Thyroxine) 1.19 ng/dL (0.71-1.85); Thyroid Stimulating Hormone 3.07 uIU/mL (0.32-4.0)
[2023-07-17 09:31] LABS: Folate 15.8 ng/mL (> or = 4.0)
[2023-07-17 12:06] LABS: Estimated Average Glucose 131 mg/dL; Hemoglobin A1c % 6.2 % (<6.0)
[2023-07-17 12:32] LABS: Vitamin B12 853 pg/mL (200-900)
== END 2023-07-17 07:17 | disposition home or self-care (01) ==
LOC: HO.LAB 07:16
PROVIDERS: Absent Provider Internal Medicine; PCP Internal Medicine; Visit Provider Student in an Organized Health Care Education/Training Program
DX: I48.20 Chronic atrial fibrillation, unspecified (principal); E78.00 Pure hypercholesterolemia, unspecified
CPT/HCPCS: 36415; 80053; 80061; 82607; 82728; 82746; 83036; 83540; 83735; 83880; 84439; 84443; 85025

== ENCOUNTER 2023-07-24 15:18 | Outpatient (AMB) | payer OTHER, SELFPAY ==
--- NOTE | 2023-07-24 15:34 | A.OFFVIS_ITS ---
Intake Vital Signs 07/24/23 15:35 Height 5 ft 6 in Weight 161 lb 13.109 oz BMI 26.1 BP 114/52 L Blood Pressure Location Rt brachial Position Sitting Pulse 85 Pulse Source Pulse Oximeter Intake Visit Reasons: 2 wk s/p [facility] Allergies dabigatran etexilate [Pradaxa] Allergy (Unknown, Verified 07/24/23 15:37) indigestion sacubitril [From ENTRESTO] Allergy (Unknown, Verified 07/24/23 15:37) FEELS LIKE HAVING A HEART ATTACK valsartan [From ENTRESTO] Allergy (Unknown, Verified 07/24/23 15:37) FEELS LIKE HAVING A HEART ATTACK Medication List - Last Reconciled 07/24/23 by OLY BellC allopurinol 100 mg PO DAILY atorvastatin 80 mg PO DAILY bumetanide 2 mg PO BID carvedilol 3.125 mg See Protocol PO BID 90 days colchicine (Colcrys) 0.6 mg PO DAILY 90 days gabapentin 100 mg PO BEDTIME glimepiride 4 mg PO QAM hydralazine 10 mg PO BID 90 days isosorbide dinitrate 5 mg See Protocol PO BID meclizine 25 mg PO TID PRN metolazone 2.5 mg PO DAILY PRN multivitamin 1 tab PO DAILY nitroglycerin 0.4 mg/hr 1 patch transdermal DAILY rivaroxaban (Xarelto) 15 mg PO DAILY@1800 ropinirole 0.25 mg PO BID 90 days sennosides-docusate sodium 8.6-50 mg (Senna-S) 1 tab-cap PO BEDTIME PRN sitagliptin phosphate (Januvia) 50 mg PO DAILY tamsulosin (Flomax) 0.4 mg PO BEDTIME 90 days HPI 2 wk s/p [facility] HPI Details Ethan is an 83-year-old male with past medical history of hypertension, hyperlipidemia, diabetes, chronic atrial fibrillation, coronary artery disease, cardiomyopathy, Bi V ICD who was recently admitted to [facility] with increased shortness of breath and treated for acute on chronic systolic heart failure. He was sent home with Bumex 2 mg b.i.d. and metolazone p.r.n.. Today he reports that he has been doing well since his last hospital discharge. He tells me that in the last few months he has been admitted 4 times for the same problem. His last visit to our office had been 07/20/2022. He says his diuretics have been adjusted between Lasix, torsemide and Bumex. He is currently doing well on his current diuretic medication and dose. Since his last hospital discharge he did take 2 doses of metolazone. He tells me currently his breathing is normal. He usually 1st notices orthopnea when he is having heart failure exacerbation. At present he denies having any orthopnea, no PND, edema. Denies chest discomfort at rest or with activity. No heart palpitations, presyncope, syncope, falls. He does still have muscle twitching in his left chest and diaphragm from his pacemaker creating diaphragm/phrenic nerve stimulation. Taking all meds as directed. No bleeding issues reported. [facility] Medical History (Updated 07/24/23 @ 16:18 by Che Hilliard NP-C) Hospital discharge follow-up Biventricular ICD (implantable cardioverter-defibrillator) in place Congestive heart failure Chronic kidney disease (CKD) stage G3b/A1, moderately decreased glomerular filtration rate (GFR) between 30-44 mL/min/1.73 square meter and albuminuria creatinine ratio less than 30 mg/g Chronic atrial fibrillation Congestive heart failure Heart failure with reduced ejection fraction Acute on chronic systolic (congestive) heart failure CAD (coronary artery disease) Ischemic cardiomyopathy History of GI bleed Aortic aneurysm TIA (transient ischemic attack) Gout Obesity (BMI 30-39.9) GERD (gastroesophageal reflux disease) Hypercholesterolemia Type 2 diabetes mellitus with hyperglycemia Hypertension Surgical History History of cardiac defibrillator placement Coronary artery disease involving coronary bypass graft History of cholecystectomy Family History Father CVD (cardiovascular disease) Hypertension Mother Cancer Social History Household Members: Family Housing: Apartment Do you presently have visiting nurse or other home services: No Alcohol intake: never Comment: pt refused fall prevention measures Patient Tobacco Use Status: Former Tobacco user Quit Date: 1985 Years Smoked: quit 1985 e-Cigarette/Vaping Use: Never Used Second Hand Smoke Exposure: No Advance Directives Date on File: 06/19/22 service: Yes Current occupational status: retired Cognitive needs: No Hearing needs: No Vision needs: Yes Review of Systems Const All systems reviewed & are unremarkable except as noted in HPI and below ENT Denies dizziness Card Denies chest pain, Denies chest pain at rest, Denies chest pain with activity, Denies rapid heart rate, Denies pedal edema, Denies edema, Denies leg edema, Denies lightheadedness, Denies palpitations, Denies dyspnea, Denies dyspnea on exertion and Denies orthopnea Resp Denies cough, Denies dyspnea and Denies dyspnea on exertion GI Denies hematochezia and Denies change in stool character Musc Denies abnormal gait, Denies limited range of motion, Denies muscle cramps, Denies muscle weakness, Denies numbness, Denies radiating pain into limb, Denies stiffness and Denies tingling Neuro Denies abnormal gait, Denies dizziness, Denies numbness and Denies tingling Endo Denies palpitations Physical Exam Vital Signs: Last Vital Signs Pulse 85 07/24/23 15:35 BP 114/52 L 07/24/23 15:35 BMI result Body Mass Index 26.1 Const General: cooperative, healthy appearing, comfortable and no acute distress Orientation/consciousness: patient oriented x3 Neck Neck: Yes normal visual inspection Resp Effort & Inspection: normal respiratory effort Auscultation: clear to auscultation bilaterally, no rales, no rhonchi and no wheezes Cardio Jugular venous distension: no JVD Rate: regular rate Rhythm: regular rhythm Heart sounds: S1 normal heart sound present, S2 normal heart sound present, no murmurs and no rubs Neuro General: patient oriented x3 Extrem General: Yes normal to inspection, No no pedal edema and No calf tenderness Psych Appearance: grossly normal Mental Status: mental status grossly normal Speech and movement: Normal speech and movement present Assessment & Plan Assessment & Plan (1) Congestive heart failure due to cardiomyopathy: Code(s): I50.9 - Heart failure, unspecified; I42.9 - Cardiomyopathy, unspecified Plan: History of acute on chronic systolic heart failure. Recent [facility] [place] for decompensated heart failure and he was diuresed and sent home with Bumex 2 mg b.i.d. as well as metolazone 2.5 mg as needed. He has chronic kidney disease with creatinine running in the 2s. On examination today he does not appear fluid overloaded. He says he is currently doing very well. Labs done a week after his hospital discharge on 07/17/2023 showed creatinine 2.49, potassium 3.8, BNP 738. Each of these values is similar to prior. He has had recurrent admissions over the last few months with decompensated heart failure. He does have a Bi V ICD in place but his effective Bi V pacing is low. When his LV threshold is increased it creates diaphragm/phrenic nerve stimulation which is very disturbing for him. He reports having an lead change scheduled with Dr. heller on 08/07/23. Once his lead is changed and he is Bi V pacing appropriately his heart failure exacerbations should lessen. His last echo 05/21/2023 shows EF 20-25%. At this time will have him continue on carvedilol, isosorbide dinitrate and hydralazine for neurohormonal modulation. He is also on Januvia. Continue Bumex and p.r.n. metolazone. Signs and symptoms of heart failure reviewed. Emergency care if needed for symptoms. Cardiology office visit in 3 months, sooner if needed. (2) CAD (coronary artery disease): Code(s): I25.10 - Atherosclerotic heart disease of [place] coronary artery without angina pectoris Qualifiers: Coronary Disease-Associated Artery/Lesion type: [place] artery [place] vs. transplanted heart: [place] heart Associated angina: without angina Qualified Code(s): I25.10 - Atherosclerotic heart disease of [place] coronary artery without angina pectoris Plan: History of CAD with coronary artery bypass grafting. He has no reports of anginal sounding symptoms. He is not on aspirin as he is on Xarelto. He is on high-dose atorvastatin with ideal LDL goal less than 70. Labs done 07/17/2023 showed LDL 46. Continue carvedilol. (3) Chronic atrial fibrillation: Code(s): I48.20 - Chronic atrial fibrillation, unspecified Plan: History of chronic atrial fibrillation. He denies heart palpitations. He feels a pulsation from his pacemaker. He is on carvedilol for heart rate control. Pulses in the normal range. He is on Xarelto 15 mg daily, renal dose for anticoagulation. Calculated creatinine clearance 24 based on most recent labs. No bleeding issues reported. Continue current med management (4) Hypertension: Code(s): I10 - Essential (primary) hypertension Qualifiers: Hypertension type: essential hypertension Qualified Code(s): I10 - Essential (primary) hypertension Plan: Well controlled at present. Continue Bumex, isosorbide, hydralazine, carvedilol. (5) Hypercholesterolemia: Code(s): E78.00 - Pure hypercholesterolemia, unspecified Plan: [place] LDL goal less than 70 in patient with CAD. He is on high-dose atorvastatin with LDL well controlled. (6) Biventricular ICD (implantable cardioverter-defibrillator) in place: Code(s): Z95.810 - Presence of automatic (implantable) cardiac defibrillator Plan: [employer] Bi V ICD. Remote monitoring in use. Bi V pacing is low and LV lead change planned as above. Plan for office device check next visit. (7) Complication associated with cardiac pacemaker lead: Code(s): T82.9XXA - Unspecified complication of cardiac and vascular prosthetic device, implant and graft, initial encounter Plan: As above (8) Hospital discharge follow-up: Code(s): Z09 - Encounter for follow-up examination after completed treatment for conditions other than malignant neoplasm Plan: As above. Last hospital discharge 07/09/2023 Plan Time spent on chart review, documentation, interview, assessment Coding Level of Care Code Est Pt Level 4 (06992) Diagnoses Congestive heart failure due to cardiomyopathy I50.9; I42.9 Coronary artery disease involving [place] coronary artery of [place] heart without angina pectoris I25.10 Coronary Disease-Associated Artery/Lesion type: [place] artery [place] vs. transplanted heart: [place] heart Associated angina: without angina Chronic atrial fibrillation I48.20 Essential hypertension I10 Hypertension type: essential hypertension Hypercholesterolemia E78.00 Biventricular ICD (implantable cardioverter-defibrillator) in place Z95.810 Complication associated with cardiac pacemaker lead T82.9XXA Hospital discharge follow-up Z09 Time Spent (min) 28
[2023-07-24 15:35] VITALS: BP 114/52; PULSE 85; BMI 26.1
== END 2023-07-24 16:13 | disposition home or self-care (01) ==
PROVIDERS: PCP Internal Medicine; Visit Provider Nurse Practitioner Family
DX: I50.9 Heart failure, unspecified (principal); I42.9 Cardiomyopathy, unspecified; I25.10 Atherosclerotic heart disease of native coronary artery without angina pectoris; I48.20 Chronic atrial fibrillation, unspecified; I10 Essential (primary) hypertension; E78.00 Pure hypercholesterolemia, unspecified; Z95.810 Presence of automatic (implantable) cardiac defibrillator; T82.9XXA Unspecified complication of cardiac and vascular prosthetic device, implant and graft, initial encounter; Z09 Encounter for follow-up examination after completed treatment for conditions other than malignant neoplasm
CPT/HCPCS: 99214

== ENCOUNTER → 2023-07-24 15:18 | Outpatient (BNVA) | payer MEDICARE, OTHER, SELFPAY | PROVIDERS: PCP Internal Medicine; Visit Provider Nurse Practitioner Family | DX: I11.0 Hypertensive heart disease with heart failure (principal); I50.9 Heart failure, unspecified; I42.9 Cardiomyopathy, unspecified; I25.10 Atherosclerotic heart disease of native coronary artery without angina pectoris; I48.20 Chronic atrial fibrillation, unspecified; E78.00 Pure hypercholesterolemia, unspecified; T82.9XXA Unspecified complication of cardiac and vascular prosthetic device, implant and graft, initial encounter; Z79.01 Long term (current) use of anticoagulants; Z79.899 Other long term (current) drug therapy; Z95.810 Presence of automatic (implantable) cardiac defibrillator | CPT/HCPCS: 99212 ==

== ENCOUNTER → 2023-08-05 23:59 | Outpatient (BNV) | payer OTHER, SELFPAY ==
--- NOTE | 2023-08-06 12:30 | A.OFFVIS_ITS ---
Intake Intake Visit Reasons: Remote ICD Check- [employer] Allergies dabigatran etexilate [Pradaxa] Allergy (Unknown, Verified 07/24/23 15:37) indigestion sacubitril [From ENTRESTO] Allergy (Unknown, Verified 07/24/23 15:37) FEELS LIKE HAVING A HEART ATTACK valsartan [From ENTRESTO] Allergy (Unknown, Verified 07/24/23 15:37) FEELS LIKE HAVING A HEART ATTACK [facility] Medical History (Updated 07/30/23 @ 21:27 by Erick Resendez MD) Hospital discharge follow-up Biventricular ICD (implantable cardioverter-defibrillator) in place Congestive heart failure Chronic kidney disease (CKD) stage G3b/A1, moderately decreased glomerular filtration rate (GFR) between 30-44 mL/min/1.73 square meter and albuminuria creatinine ratio less than 30 mg/g Chronic atrial fibrillation Congestive heart failure Heart failure with reduced ejection fraction Acute on chronic systolic (congestive) heart failure CAD (coronary artery disease) Ischemic cardiomyopathy History of GI bleed Aortic aneurysm TIA (transient ischemic attack) Gout Obesity (BMI 30-39.9) GERD (gastroesophageal reflux disease) Hypercholesterolemia Type 2 diabetes mellitus with hyperglycemia Hypertension Surgical History History of cardiac defibrillator placement Coronary artery disease involving coronary bypass graft History of cholecystectomy Family History Father CVD (cardiovascular disease) Hypertension Mother Cancer Social History Household Members: Family Housing: Apartment Do you presently have visiting nurse or other home services: No Alcohol intake: never Comment: pt refused fall prevention measures Patient Tobacco Use Status: Former Tobacco user Quit Date: 1985 Years Smoked: quit 1985 e-Cigarette/Vaping Use: Never Used Second Hand Smoke Exposure: No Advance Directives Date on File: 06/19/22 service: Yes Current occupational status: retired Cognitive needs: No Hearing needs: No Vision needs: Yes Office Procedures Cardiac Device Check Cardiac Device Check Details: Remote ICD report generated 08/05/2023. Bi V pacing suboptimal, effective 72% due to elevated LV pacing thresholds. Battery life at 16 months. [id number] Cardiac Interrogation, implant defibrillator w/interim Procedure code (CPT) selection complete Assessment & Plan Assessment & Plan (1) Biventricular ICD (implantable cardioverter-defibrillator) in place: Code(s): Z95.810 - Presence of automatic (implantable) cardiac defibrillator Plan: See above Coding Level of Care Code Procedure Only Diagnoses Biventricular ICD (implantable cardioverter-defibrillator) in place Z95.810 CPT Codes Cardiac Device Check - Cardiac Device 13: [id number] Cardiac Interrogation, implant defibrillator w/interim ([id number])
== END ==
PROVIDERS: PCP Internal Medicine; Visit Provider Internal Medicine Cardiovascular Disease
DX: I25.5 Ischemic cardiomyopathy (principal); Z95.810 Presence of automatic (implantable) cardiac defibrillator
CPT/HCPCS: 93295

== ENCOUNTER → 2023-08-05 23:59 | Outpatient (BNV) | payer OTHER, SELFPAY ==
--- NOTE | 2023-08-06 12:29 | A.OFFVIS_ITS ---
Intake Intake Visit Reasons: Remote HF Monitoring- [employer] Allergies dabigatran etexilate [Pradaxa] Allergy (Unknown, Verified 07/24/23 15:37) indigestion sacubitril [From ENTRESTO] Allergy (Unknown, Verified 07/24/23 15:37) FEELS LIKE HAVING A HEART ATTACK valsartan [From ENTRESTO] Allergy (Unknown, Verified 07/24/23 15:37) FEELS LIKE HAVING A HEART ATTACK [facility] Medical History (Updated 07/30/23 @ 21:27 by Erick Resendez MD) Hospital discharge follow-up Biventricular ICD (implantable cardioverter-defibrillator) in place Congestive heart failure Chronic kidney disease (CKD) stage G3b/A1, moderately decreased glomerular filtration rate (GFR) between 30-44 mL/min/1.73 square meter and albuminuria creatinine ratio less than 30 mg/g Chronic atrial fibrillation Congestive heart failure Heart failure with reduced ejection fraction Acute on chronic systolic (congestive) heart failure CAD (coronary artery disease) Ischemic cardiomyopathy History of GI bleed Aortic aneurysm TIA (transient ischemic attack) Gout Obesity (BMI 30-39.9) GERD (gastroesophageal reflux disease) Hypercholesterolemia Type 2 diabetes mellitus with hyperglycemia Hypertension Surgical History History of cardiac defibrillator placement Coronary artery disease involving coronary bypass graft History of cholecystectomy Family History Father CVD (cardiovascular disease) Hypertension Mother Cancer Social History Household Members: Family Housing: Apartment Do you presently have visiting nurse or other home services: No Alcohol intake: never Comment: pt refused fall prevention measures Patient Tobacco Use Status: Former Tobacco user Quit Date: 1985 Years Smoked: quit 1985 e-Cigarette/Vaping Use: Never Used Second Hand Smoke Exposure: No Advance Directives Date on File: 06/19/22 service: Yes Current occupational status: retired Cognitive needs: No Hearing needs: No Vision needs: Yes Office Procedures Cardiac Device Check Cardiac Device Check Details: Remote heart failure report generated 08/05/2023. Heart failure parameters are within normal limits [id number] Cardiac Device Interrogation, cardio physiologic monitor Procedure code (CPT) selection complete Assessment & Plan Assessment & Plan (1) Biventricular ICD (implantable cardioverter-defibrillator) in place: Code(s): Z95.810 - Presence of automatic (implantable) cardiac defibrillator Plan: See above Coding Level of Care Code Procedure Only Diagnoses Biventricular ICD (implantable cardioverter-defibrillator) in place Z95.810 CPT Codes Cardiac Device Check - Cardiac Device 15: [id number] Cardiac Device Interrogation, cardio physiologic monitor ([id number])
== END ==
PROVIDERS: PCP Internal Medicine; Visit Provider Internal Medicine Cardiovascular Disease
DX: I50.23 Acute on chronic systolic (congestive) heart failure (principal); Z95.810 Presence of automatic (implantable) cardiac defibrillator
CPT/HCPCS: 93297

== ENCOUNTER 2023-09-05 20:01 | Inpatient (IN) | payer OTHER, MEDICARE, SELFPAY ==
--- NOTE | ~2023-09-05 | IR_ITS ---
CLINICAL HISTORY: End-stage renal disease. The patient presents to interventional radiology for placement of a tunneled central venous catheter for hemodialysis. PROCEDURES: 1. Real-time ultrasound-guided access into the right internal jugular vein after documentation of selected vessel patency, and permanent imaging storing in the patient record. 2. Placement of a 14.5 fr 23 cm tunneled, dual-lumen hemodialysis catheter. Clinician: Yandel Rogers PA-C MEDICATIONS: -Lidocaine 1% 10 mL SQ. -Antibiotics: Ancef -For additional details, please see nursing flowsheet. COMPLICATIONS: None. ESTIMATED BLOOD LOSS: <5 ml SPECIMENS: None FLUOROSCOPY TIME: 1.8 min PROCEDURE NOTE: The procedure, risks, benefits, and alternatives were carefully explained to patient, and written informed consent was obtained. The patient was placed supine on the fluoroscopy table. A timeout was performed. The right neck and chest was prepped and draped in usual sterile fashion. Local anesthesia was administered to the access site with lidocaine. Under ultrasound guidance, the right internal jugular vein was accessed with a 5 Fr micropuncture set. A 0.035 in wire was advanced to the IVC to maintain access during the tunneling process. Next, subcutaneous lidocaine was administered to the chest. Using blunt dissection, a subcutaneous tunnel was created that connects from the upper chest to the venotomy site. The dialysis catheter was pulled through the tunnel. The tract in the vein was dilated and a peel-away sheath was advanced over the wire. The catheter was advanced through the sheath, which was subsequently peeled away. The catheter was tested, flushed, and sutured to the skin with its tip in the high right atrium. A permanent fluoroscopic image of the chest was saved to PACS. The catheter ports were packed with heparin per routine protocol. FINDINGS: 1. Patent right internal jugular vein. 2. Placement of a tunneled, dual-lumen hemodialysis catheter as above. 3. Catheter flushes and aspirates very well with a 10 mL syringe. No pneumothorax. IR/IR cvc insert central tunnel IMPRESSION: Placement of a tunneled hemodialysis catheter in the right internal jugular vein. PLAN: -The catheter may be used immediately. This procedure was performed by Yandel Rogers PA-C, and directly supervised by Dr. Mendieta.
--- NOTE | ~2023-09-05 | XR_ITS ---
EXAMINATION: XR CHEST CLINICAL INFORMATION: Weakness. Shortness of breath. COMPARISON: Multiple priors, most recent chest radiograph dated 07/07/2023. TECHNIQUE: Frontal view of the chest was obtained. FINDINGS: Interstitial prominence with patchy bilateral opacities, slightly decreased when compared to the prior examination. No new confluent airspace consolidation. No pleural effusion or pneumothorax. Stable cardiomediastinal silhouette. Sternal wires and a small surgical clips, unchanged. Left chest wall pacer/ICD with its leads in the right heart, unchanged. XR/XR chest 1V IMPRESSION: Interstitial prominence with patchy bilateral opacities, slightly decreased when compared to the prior examination. No new confluent airspace consolidation.
--- NOTE | ~2023-09-05 | US_ITS ---
EXAMINATION: US ABDOMEN LIMITED CLINICAL INFORMATION: Elevated LFTs. COMPARISON: CT abdomen pelvis 10/22/2016 TECHNIQUE: Real-time imaging of the right upper quadrant abdominal viscera. FINDINGS: PANCREAS: The pancreas appears unremarkable, without masses or ductal dilatation, with the exception of the tail which is obscured by bowel gas. LIVE: Liver is enlarged at 18.5 cm. Multiple solid liver masses are seen with the 2 largest measuring 4.4 and 3.8 cm. Contour is slightly nodular . The liver echogenicity is heterogeneous There is no intrahepatic biliary duct dilatation seen. GALLBLADDER: Surgically absent. COMMON BILE DUCT: Normal in caliber measuring 0.4 cm in diameter. RIGHT KIDNEY: No hydronephrosis. Multiple benign Bosniak class I renal cysts are noted, the largest measuring 4.0 cm which require no additional imaging or follow-up. No solid renal masses are seen. No renal calculi. The kidney measures 11.5 cm in maximum dimension. FREE FLUID: None. US/US abdomen limited IMPRESSION: Enlarged liver with multiple solid masses. Findings suspicious for metastatic disease. MRI or biopsy is recommended for further evaluation.
--- NOTE | ~2023-09-05 | CT_ITS ---
EXAMINATION: CT chest wo IV con, CT abdomen pelvis wo IV con CLINICAL INFORMATION: Reason for Exam ?metastasis COMPARISON: Abdominal ultrasound 09/05/2023 chest radiograph 09/05/2023. CT lumbar spine 10/22/2016. CT abdomen pelvis 10/22/2016. CT angiography chest 10/27/2011 TECHNIQUE: Unenhanced CT of the chest, abdomen and pelvis Intravenous Contrast: None This CT examination was performed using dose optimization techniques as appropriate, variously including the following: *Automated exposure control *Adjustment of mA and/or kV according to patient size (this includes techniques or standardized protocols for targeted exams where dose is matched to indication/reason for exam; i.e. extremities or head) *Use of iterative reconstruction technique DLP: 1075 mGy-cm FINDINGS: Lungs and pleura: A 2.5 cm x 1.6 cm x 1.7 cm (lateral X AP X SI) nodule is present within the posterior segment of the right upper pulmonary lobe abutting the minor fissures. Smooth intralobular septal thickening is present within the right upper pulmonary lobe asymmetrically prominent relative to the remainder of the lungs. Bilateral mild subpleural medium and fine reticular opacities and areas of minimal associated traction bronchiectasis are noted. A 1.4 cm x 1.1 cm x 1.1 cm subpleural nodules present in the right lower pulmonary lobe (series 6 image 30). Attenuation of the upper lung zone pulmonary parenchyma suspicious for mild-moderate centrilobular emphysema noted. Mediastinum: Marked right paratracheal, right hilar and subcarinal lymphadenopathy is present with lymph nodes demonstrating short axis diameters up to 2 cm. A subcarinal lymph node measures 2 cm in maximum short axis diameter and exhibits associated dystrophic punctate calcifications. The remaining areas of lymphadenopathy demonstrate no dystrophic calcification. No supraclavicular lymphadenopathy identified. A single left hilar lymph node measures 1.6 cm in diameter, above normal limits of size. Marked diffuse calcific atherosclerosis of the thoracic aorta is noted. Marked diffuse coronary artery calcific atherosclerosis identified. A left pectoral AICD pacer is identified. No pericardial thickening or fluid collections noted. The right atrium appears qualitatively enlarged. CHEST WALL: Left pectoral generator. No axillary lymphadenopathy. Liver: A vague 3 cm diameter low density focus is present in segment 7 of the liver. A vague 4 cm diameter low-density lesion is present in segment 8 of the liver. These findings correspond to lesions identified to better advantage on the comparison ultrasound. Additional borderline vague low density smaller rounded lesions are noted within the liver and correspond to findings noted to better advantage on the comparison ultrasound. Biliary system: Cholecystectomy clips are noted. No biliary duct dilatation visualized. Pancreas: Normal. Spleen: Normal. Adrenal glands: Normal. Kidneys: Mild diffuse bilateral renal atrophy. 2 cm diameter rounded low-density focus within the interpolar segment of the right kidney most consistent with a benign, simple cyst requiring no additional imaging follow-up. Single punctate dystrophic calcification within the lateral aspect of the right kidney. A 2.5 cm diameter rounded low-density focus is present medially within the interpolar segment left kidney most consistent with a benign, simple cyst requiring no additional imaging follow-up. An exophytic 4 cm diameter rounded low-density focus is present with the inferior pole the right kidney is most consistent with benign, simple cyst requiring no additional imaging follow-up is 5 mm intermediate density (24 Hounsfield unit) focus is present along the anterior medial aspect of the superior pole the right kidney (series 11 image 36) this is an indeterminate finding which may represent a proteinaceous cyst or solid renal lesion. Urinary bladder: Gaytan catheter resides within the lumen of the urinary bladder which is mostly decompressed. Dependent intraluminal gas is present within the lumen of the urinary bladder likely related to the Gaytan catheter. No suspicious urinary bladder wall thickening. Gastrointestinal system: Moderate sigmoid diverticulosis. Normal appendix. Normal terminal ileum. The middle segment of the sigmoid colon over a 4.5 cm length demonstrates a collapsed appearance with either coapted normal bowel wall or possible concentric bowel wall thickening to a width of 1.2 cm (series 11 image 69, series 15 image 38) no small bowel dilatation or mural thickening noted. No free intraperitoneal fluid or gas collections. Normal stomach and duodenum. Abdominal and pelvic vascular structures: Marked diffuse calcific atherosclerosis. A fusiform aneurysm of the abdominal aorta measures up to 3.6 cm in diameter. Focal ulceration with associated dense mural calcification is present within the proximal segment of the aneurysm measuring approximately 7 mm in depth. The aneurysm originates 2.5 cm inferior to the origin of the renal arteries. The common iliac arteries are normal in caliber. Dense vascular calcifications are present in the iliac system including calcifications suspicious for possible ulcerative plaques within the left and right common iliac arteries.s Abdominal lymph nodes: No abdominal lymphadenopathy identified. Abdominal wall: 1.5 cm periumbilical hernia containing omental fat without associated inflammatory changes is visualized. Pelvic viscera: The prostate is diffusely enlarged measuring 5 cm in diameter. Osseous structures: No suspicious skeletal lesions identified. A 1.5 cm densely sclerotic well-circumscribed focus is present in L3 vertebral body and has the appearance of an enostosis. Multilevel chronic appearing thoracolumbar spondylosis is present including prominent intervertebral disc space narrowing L3-L4 and L4-L5 and L5-S1. Multilevel anterior endplate osteophytosis of the thoracic spine is visualized. Multiple median sternotomy wires identified. CT/CT abdomen pelvis wo IV con IMPRESSION: Unenhanced CT of the chest, abdomen pelvis: 1. Findings suspicious for primary bronchogenic neoplasm with bilateral mediastinal lymphadenopathy and hepatic metastatic disease. A 2.5 cm right upper lobe nodule suspicious for neoplasm is present in association with bulky right paratracheal, right hilar and subcarinal lymphadenopathy and a single abnormal enlarged left hilar lymph node. Additionally, an indeterminate 1.4 cm nodule is present in the right lower pulmonary lobe and may represent a satellite lesion. Findings are present in the setting of mild-moderate centrilobular emphysema. Multiple hepatic lesions measuring up to 4 cm in diameter are present and are suspicious for metastatic disease. No skeletal metastatic disease identified. Smooth intralobular septal thickening is present in the right upper lobe and may represent asymmetric pulmonary edema or possible lymphangitic spread of tumor related to the 2.5 cm nodule noted above. 2. 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 3. Indeterminate 5 mm intermediate density lesion within the anteromedial aspect of the superior pole the right kidney (series 11 image 36) which may represent a proteinaceous cyst or solid parenchymal lesion. Recommend follow-up on the basis of oncologic imaging protocol in the setting of the above identified findings suspicious for bronchogenic neoplasm. 4. Borderline concentric mural thickening of the middle segment of the sigmoid colon over a 4.5 cm length with possible mural thickening up to 1.2 cm in diameter. Findings are most suspicious for physiologic contraction of the sigmoid colon in the setting of moderate sigmoid diverticulosis. The differential diagnosis includes a concentric mural tumor within the sigmoid colon. However, findings are most suspicious for benign mural thickening and physiologic coaptation of the sigmoid colon. Findings could be further evaluated with sigmoidoscopy or contrast fluoroscopy as clinically indicated. No evidence of active diverticulitis. 5. Abdominal aortic aneurysm measuring 3.6 cm in diameter and associated chronic ulceration as detailed above. Based on published guidelines in J Am Domingo Radiol 2013; 10(10):789-794 and J Vasc Surg. 2018; 67:2-77, the recommendation for an abdominal aortic aneurysm with diameter 3.5-3.9 cm is follow-up every 2 years. 5. Marked diffuse calcific atherosclerosis and marked diffuse coronary artery calcific atherosclerosis.
--- NOTE | 2023-09-05 20:02 | ECG_ITS ---
Test Reason : CHESTPAIN Blood Pressure : / mmHG Vent. Rate : 082 BPM Atrial Rate : 394 BPM P-R Int : 000 ms QRS Dur : 162 ms QT Int : 492 ms P-R-T Axes : 000 101 215 degrees QTc Int : 574 ms Ventricular-paced rhythm with Premature ventricular and fusion complexes Biventricular pacemaker detected Abnormal ECG When compared with ECG of 07-JUL-2023 22:48, Vent. rate has increased BY 9 BPM Referred By: Rosa Blackwood Electronically Signed By:JEANETTE ARANGO MD
--- NOTE | 2023-09-05 20:20 | ED.GENADULT ---
HPI - General Adult General Chief complaint: Chest Pain Stated complaint: Chest pain, dizziness Time Seen by Provider: 09/05/23 20:23 Source: patient Mode of arrival: ambulatory Limitations: no limitations History of Present Illness HPI narrative: Patient comes to the emergency room complaining of chest pressure for couple of hours,, shortness of breath. Patient states that he has known congestive heart failure, he has been in and out of hospitals every couple of weeks. Patient states that at night he can not lay down flat. Now he needs several pillows, almost sitting all the way up. Related Data Home Medications Medication Instructions Recorded Confirmed multivitamin 1 tab PO DAILY 04/12/20 07/24/23 meclizine 25 mg tablet 25 mg PO TID PRN Dizziness 01/09/23 07/24/23 atorvastatin 80 mg tablet 80 mg PO DAILY 07/07/23 07/24/23 sennosides 8.6 mg-docusate sodium 1 tab-cap PO BEDTIME PRN 07/08/23 07/24/23 50 mg tablet (Senna-S) Constipation Previous Rx's Medication Instructions Recorded glimepiride 4 mg tablet 4 mg PO QAM #90 tabs 10/24/22 sitagliptin phosphate 50 mg tablet 50 mg PO DAILY #90 tabs 10/24/22 (Januvia) colchicine 0.6 mg tablet (Colcrys) 0.6 mg PO DAILY 90 days #90 tabs 12/20/22 allopurinol 100 mg tablet 100 mg PO DAILY #90 tabs 01/20/23 nitroglycerin 0.4 mg/hr 1 patch transdermal DAILY #90 02/21/23 transdermal 24 hour patch patches carvedilol 3.125 mg tablet 3.125 mg PO BID 90 days #180 tabs 05/29/23 hydralazine 10 mg tablet 10 mg PO BID 90 days #180 tabs 05/29/23 isosorbide dinitrate 5 mg tablet 5 mg PO BID #60 tabs 07/09/23 metolazone 2.5 mg tablet 2.5 mg PO DAILY PRN FLuid overload 07/09/23 #20 tabs gabapentin 100 mg capsule 100 mg PO BEDTIME #90 caps 07/24/23 ropinirole 0.25 mg tablet 0.25 mg PO BID 90 days #180 tabs 07/24/23 tamsulosin 0.4 mg capsule (Flomax) 0.4 mg PO BEDTIME 90 days #90 caps 07/24/23 bumetanide 2 mg tablet 2 mg PO BID 90 days #180 tabs 08/23/23 rivaroxaban 15 mg tablet (Xarelto) 15 mg PO DAILY@1800 #90 tabs 08/23/23 Allergies Allergy/AdvReac Type Severity Reaction Status Date / Time dabigatran etexilate Allergy Unknown indigestion Verified 07/24/23 15:37 [Pradaxa] sacubitril [From ENTRESTO] Allergy Unknown FEELS LIKE Verified 07/24/23 15:37 HAVING A HEART ATTACK valsartan [From ENTRESTO] Allergy Unknown FEELS LIKE Verified 07/24/23 15:37 HAVING A HEART ATTACK Review of Systems Review of Systems: Constitutional : No Weight loss, No Fever, No Chills, No Night Sweats, No Fatigue, No Malaise ENT/Mouth : No Hearing loss, No Ear Pain, No Nasal Congestion, No Sinus Pain, No Hoarseness, No sore throat, No Rhinorrhea, No Swallowing Difficulty Eyes: No Eye Pain, No Swelling, No Redness, No Foreign Body, No Discharge, No Vision Changes Cardiovascular : No Chest Pain, No SOB, No Dyspnea on Exertion, No Orthopnea, No Edema, No Palpitations Respiratory : No Cough, No Sputum, No Wheezing, No Smoke Exposure, No Dyspnea Gastrointestinal : No Nausea, No Vomiting, No Diarrhea, No Constipation, No abdominal Pain, No Hematochezia, No Melena Genitourinary : no irregular bleeding, No Dysuria, No Urinary Frequency, No Hematuria, No Urinary Incontinence, No Urgency, No Flank Pain, No Urinary Flow Changes, No Hesitancy Musculoskeletal : No joint pain, No Myalgias, No Joint Swelling Skin : No Skin Lesions, No rash Neuro : No Weakness, No Numbness, No Paresthesias, No Loss of Consciousness, No Dizziness, No Headache Psych : No Anxiety/Panic, No Depression, No SI/HI/AH/VH, No Social Issues, Heme/Lymph: No Bruising, No Bleeding,No Lymphadenopathy Endocrine : No Polyuria, No Polydipsia, No Temperature Intolerance PMFSH Past Medical History Medical History Hospital discharge follow-up Biventricular ICD (implantable cardioverter-defibrillator) in place Congestive heart failure Chronic kidney disease (CKD) stage G3b/A1, moderately decreased glomerular filtration rate (GFR) between 30-44 mL/min/1.73 square meter and albuminuria creatinine ratio less than 30 mg/g Chronic atrial fibrillation Congestive heart failure Heart failure with reduced ejection fraction Acute on chronic systolic (congestive) heart failure CAD (coronary artery disease) Ischemic cardiomyopathy History of GI bleed Aortic aneurysm TIA (transient ischemic attack) Gout Obesity (BMI 30-39.9) GERD (gastroesophageal reflux disease) Hypercholesterolemia Type 2 diabetes mellitus with hyperglycemia Hypertension Surgical History History of cardiac defibrillator placement Coronary artery disease involving coronary bypass graft History of cholecystectomy Family History Family History Father CVD (cardiovascular disease) Hypertension Mother Cancer Social History Social History Household Members: Family Housing: Apartment Do you presently have visiting nurse or other home services: No Alcohol intake: never Comment: pt refused fall prevention measures Patient Tobacco Use Status: Former Tobacco user Quit Date: 1985 Smoked: quit 1985 e-Cigarette/Vaping Use: Never Used Second Hand Smoke Exposure: No Advance Directives: Yes Advance Directives on File: Yes Advance Directives Date on File: 06/19/22 service: Yes Current occupational status: retired Cognitive needs: No Hearing needs: No Vision needs: Yes Physical Exam ED Vital Signs: Vital Signs - 24 hr 09/05/23 20:22 Temperature 97.8 F Pulse Rate 75 Respiratory Rate 18 Blood Pressure 123/57 L Pulse Oximetry 89 L Oxygen Delivery Method Room Air BMI result Body Mass Index 25.4 Const Other: Appearance: Alert. Oriented X3. No acute distress. Eyes: Pupils equal, round and reactive to light. ENT: Pharynx normal. Neck: Normal inspection. Neck supple. No lymph nodes noted. No crepitus CVS: Complaining of chest pressure, Normal heart rate and rhythm. Pulses normal. Normal S1 and S2 Respiratory: Complaining of shortness of breath with lying down and exertion. Abdomen: Soft and nontender. No rigidity. No distention. Skin: Skin warm and dry. Normal skin color. Normal skin turgor. Extremities: No lower extremity edema. No Lacerations. No Rash Neuro: Oriented X 3. No motor deficit. No sensory deficit. Moving all extremities. No slurred speech. CN 2 through 12 grossly intact Psych: calm, cooperative, normal affect Course Course Course Narrative: RME performed by Rosa Blackwood PA-C. Patient is an 83 year old assigned male at presenting to the emergency department with shortness of breath and chest pain. Patient has extensive cardiac history. Recently had pacemaker / defib replaced. Detailed physical exam and review of systems are deferred to the shop router. Labs, imaging, and swabs ordered. Patient placed in bed 3. Medications Administered Discontinued Medications Generic Name Dose Route Start Last Admin Trade Name Freq PRN Reason Stop Dose Admin Furosemide 40 mg 09/05/23 21:22 09/05/23 21:27 Furosemide 40 Mg/4 Ml Vial IVPUSH 09/05/23 21:23 40 mg STAT STA Administration Protocol Morphine Sulfate 1 mg 09/05/23 20:45 09/05/23 21:23 Morphine Sulfate 2 Mg/Ml Cartridge IVPUSH 09/05/23 20:46 1 mg ONCE ONE Administration Protocol Medical Decision Making Medical Decision Making [facility] [place] Narrative: -my interpretation of labs: Hematology at baseline, coagulation at baseline, patient on Xarelto, pCO2 48, patient's creatinine above patient's baseline, patient's LFTs are a bit more elevated than patient's usual baseline, could be directly related to CHF. Also BNP elevated, twice patient has normal BNP, today 1400. Troponin 54.2, likely secondary to elevated BNP. -earlier today, patient received 1 dose of morphine, patient feels more comfortable. -my interpretation of chest x-ray: Mild pulmonary edema, vascular congestion -radiology interpretation, bilateral patchy opacities. Patient has no signs or symptoms of a pulmonary process or infection. Differential Diagnosis Differential Diagnoses: The differential diagnosis associated with the presentation includes (CHF, influenza, RSV, COVID, ACS) Admission/Observation Consideration of admission/observation: Escalation of care including admission/observation considered Consult Healthcare Provider Management of the patient was discussed with: Hospitalist Lab Data [facility] [place] Lab Attestation statement: I reviewed the patient's lab results. 09/05/23 20:32 09/05/23 20:32 Labs: Lab Results 09/05/23 09/05/23 Range/Units 20:32 20:35 WBC 8.3 (4.8-10.8) X10*3/uL RBC 3.57 L (4.60-5.80) X10*6/uL Hgb 10.8 L (14.0-18.0) g/dl Hct 33.0 L (42.0-52.0) % MCV 92.4 (80.0-98.0) fL MCH 30.3 (27.0-33.0) pg MCHC 32.7 (31.0-36.0) g/dl RDW 17.1 H (11.0-16.0) % Plt Count 169 (160-400) X10*3/uL MPV 11.4 (9.4-12.4) fL Immature Gran % (Auto) 0.6 H (0.0-0.4) % Neut % (Auto) 79.5 H (45-73) % Lymph % (Auto) 5.3 L (20-40) % [place] % (Auto) 13.4 H (2-11) % Eos % (Auto) 0.6 (0-4) % Baso % (Auto) 0.6 (0-2) % Lymph # (Auto) 0.4 L (1.2-4.9) X10*3/uL [place] # (Auto) 1.1 (0.1-1.2) X10*3/uL Eos # (Auto) 0.1 (0.0-0.4) X10*3/uL Baso # (Auto) 0.1 (0.0-0.2) X10*3/uL Abs Immat Gran (auto) 0.05 H (0.00-0.03) X10*3/uL Absolute Neuts (auto) 6.6 (2.0-8.3) x10*3/uL Absolute Nucleated RBC 0.000 (0.0-0.012) X10*3/uL Nucleated RBC % (auto) 0.0 (0.0-0.2) /100WBC PT 19.4 H (11.1-13.3) SEC INR 1.6 H (0.9-1.1) APTT 50.2 H (26.0-36.8) SEC VBG pH 7.47 H (7.32-7.43) VBG pCO2 48 mmHg VBG pO2 37 mmHg VBG HCO3 36 H (22-26) mmol/L VBG O2 Saturation 58.0 % VBG Base Excess 11.1 mmol/L Sodium 137 (135-145) mmol/L Potassium 3.6 (3.3-5.1) mmol/L Chloride 92 L (96-108) mmol/L Carbon Dioxide 31 H (22-29) mmol/L Anion Gap 18 (12-20) BUN 61 H (9-16) mg/dL Creatinine 3.93 H (0.5-1.4) mg/dL Estim Creat Clear Calc 13.3 Estimated GFR 15 Random Glucose 237 H (60-115) mg/dL Calcium 10.7 H D (8.4-10.2) mg/dL Magnesium 2.3 (1.6-2.6) mg/dL Total Bilirubin 3.3 H (0.0-1.0) mg/dL AST 151 H (5-37) U/L ALT 88 H (0-40) U/L Alkaline Phosphatase 755 H (39-117) U/L Troponin I High Sens 54.2 H D (<3.5-35.0) ng/L B-Natriuretic Peptide 1402 H (<100) pg/mL Total Protein 8.4 H (6.5-8.0) g/dL Albumin 3.3 L (3.5-5.0) g/dL Influenza Type A (PCR) NEGATIVE (Negative) Influenza Type B (PCR) NEGATIVE (Negative) RSV RNA Qual (PCR) NEGATIVE (Negative) SARS-CoV-2 RNA (RT-PCR) NEGATIVE (Negative) Independent Interpretation I performed an independent interpretation of an: Plain X-Ray Radiology Impression Discussion of test interpretation with radiology: I have reviewed the radiologist's reading. Radiologist Impression: Interstitial prominence with patchy bilateral opacities, slightly decreased when compared to the prior examination. No new confluent airspace consolidation. No pleural effusion or pneumothorax. Stable cardiomediastinal silhouette. Sternal wires and a small surgical clips, unchanged. Left chest wall pacer/ICD with its leads in the right heart, unchanged. XR/XR chest 1V IMPRESSION: Interstitial prominence with patchy bilateral opacities, slightly decreased when compared to the prior examination. No new confluent airspace consolidation. Critical Care Time Critical Care Time Critical Care Time: Yes Total Critical Care Time: 75 Attestation: I have personally provided critical care time. Time includes review of lab data, radiology results, discussion with consultants, and monitoring for potential decompensation. Intervention performed as documented. Discharge Plan Discharge Clinical Impression: CHF exacerbation Patient Disposition: Admitted As Inpatient Prescriptions: No Action glimepiride 4 mg tablet 4 mg PO QAM Qty: 90 3RF Januvia 50 mg tablet 50 mg PO DAILY Qty: 90 3RF colchicine [Colcrys] 0.6 mg tablet 0.6 mg PO DAILY 90 Days Qty: 90 3RF allopurinol 100 mg tablet 100 mg PO DAILY Qty: 90 3RF nitroglycerin 0.4 mg/hr patch 24 hour 1 patch transdermal DAILY Qty: 90 3RF carvedilol 3.125 mg tablet 3.125 mg PO BID 90 Days Qty: 180 3RF Protocol: Hold for SBP/HR < HOLD for SBP < : 90 HOLD for HR < : 60 hydralazine 10 mg tablet 10 mg PO BID 90 Days Qty: 180 3RF tamsulosin [Flomax] 0.4 mg capsule 0.4 mg PO BEDTIME 90 Days Qty: 90 1RF gabapentin 100 mg capsule 100 mg PO BEDTIME Qty: 90 3RF ropinirole 0.25 mg tablet 0.25 mg PO BID 90 Days Qty: 180 3RF bumetanide 2 mg tablet 2 mg PO BID 90 Days Qty: 180 3RF Xarelto 15 mg tablet 15 mg PO DAILY@1800 Qty: 90 3RF atorvastatin 80 mg tablet 80 mg PO DAILY sennosides-docusate sodium [Senna-S] 8.6-50 mg tablet 1 tab-cap PO BEDTIME PRN (Reason: Constipation) isosorbide dinitrate 5 mg Tablet 5 mg PO BID Qty: 60 0RF Protocol: Hold for SBP< HOLD for SBP < : 90 metolazone 2.5 mg tablet 2.5 mg PO DAILY PRN (Reason: FLuid overload) Qty: 20 0RF meclizine 25 mg tablet 25 mg PO TID PRN (Reason: Dizziness) multivitamin Tablet 1 tab PO DAILY
[2023-09-05 20:22] VITALS: BP 123/57; PULSE 75; RESP 18; TEMP 36.6; O2SAT 89; BMI 25.4
[2023-09-05 20:38] LABS: MANUAL DIFF FLAG NO
[2023-09-05 20:42] LABS: VBG Base Excess 11.1 mmol/L; VBG HCO3 36 mmol/L (22-26); VBG pCO2 48 mmHg; VBG pH 7.47 (7.32-7.43); VBG pO2 37 mmHg
[2023-09-05 20:45] LABS: Basophils Absolute Auto 0.1 X10*3/uL (0.0-0.2); Basophils Percent Auto 0.6 % (0-2); Eosinophils Absolute Auto 0.1 X10*3/uL (0.0-0.4); Eosinophils Percent Auto 0.6 % (0-4); Hemoglobin 10.8 g/dl (14.0-18.0); Imm Gran Abs Auto 0.05 X10*3/uL (0.00-0.03); Imm Gran Pct Auto 0.6 % (0.0-0.4); Lymphocytes Absolute Auto 0.4 X10*3/uL (1.2-4.9); Lymphocytes Percent Auto 5.3 % (20-40); Mean Corpuscular HGB Conc 32.7 g/dl (31.0-36.0); Mean Corpuscular Hemoglobin 30.3 pg (27.0-33.0); Mean Corpuscular Volume 92.4 fL (80.0-98.0); Mean Platelet Volume 11.4 fL (9.4-12.4); Monocytes Absolute Auto 1.1 X10*3/uL (0.1-1.2); Monocytes Percent Auto 13.4 % (2-11); Neutrophils Absolute Auto 6.6 x10*3/uL (2.0-8.3); Neutrophils Percent Auto 79.5 % (45-73); Platelet Count 169 X10*3/uL (160-400); Red Blood Count 3.57 X10*6/uL (4.60-5.80); Red Cell Distribution Width 17.1 % (11.0-16.0); White Blood Count 8.3 X10*3/uL (4.8-10.8)
[2023-09-05 20:50] LABS: INTERNATIONAL NORM RATIO 1.6 (0.9-1.1); Prothrombin Time 19.4 SEC (11.1-13.3)
[2023-09-05 20:50] LABS: Venous Blood Gas Refer to POC result
[2023-09-05 20:53] LABS: Partial Thromboplastin Time 50.2 SEC (26.0-36.8)
[2023-09-05 21:02] LABS: Alanine Aminotransferase 88 U/L (0-40); Albumin Level 3.3 g/dL (3.5-5.0); Alkaline Phosphatase 755 U/L (39-117); Anion Gap 18 (12-20); Aspartate Amino Transferase 151 U/L (5-37); Bilirubin Total 3.3 mg/dL (0.0-1.0); Blood Urea Nitrogen 61 mg/dL (9-16); Calcium 10.7 mg/dL (8.4-10.2); Carbon Dioxide 31 mmol/L (22-29); Chloride 92 mmol/L (96-108); Creatinine Clr Calc Pharmacy 13.3; Estimated Glomerular Filt Rate 15; Glucose Random 237 mg/dL (60-115); Magnesium 2.3 mg/dL (1.6-2.6); Potassium 3.6 mmol/L (3.3-5.1); Sodium 137 mmol/L (135-145); Total Protein 8.4 g/dL (6.5-8.0)
[2023-09-05 21:04] LABS: B Type Natriuretic Peptide 1402 pg/mL (<100)
[2023-09-05 21:09] LABS: Troponin-I High Sensitivity 54.2 ng/L (<3.5-35.0)
[2023-09-05 21:19] LABS: Influenza A PCR NEGATIVE (Negative); Influenza B PCR NEGATIVE (Negative); Resp Syncy Virus RNA Qual PCR NEGATIVE (Negative); SARS COV2 PCR INHOUSE NEGATIVE (Negative)
[2023-09-05] MEDS: Morphine Sulfate 2 MG/ML CARTRIDGE 1 MG IVPUSH (21:23)
[2023-09-05] MEDS: Furosemide 40 MG/4 ML VIAL IVPUSH (21:27)
--- NOTE | 2023-09-05 22:46 | PM.IMHP ---
History of Present Illness Date of Service: 09/05/23 Attending physician on admission: Misa Pierce Chief Complaint: go, orthopnea 83-year-old male with history of [id number] type 2 diabetes, GERD, hyperlipidemia, aortic aneurysm, heart failure reduced ejection fraction, coronary artery disease s/p CABG, CKD stage 4, TIA, chronic atrial fibrillation on Xarelto with biventricular ICD in place presented to the ED earlier today for evaluation of dyspnea. He reports last night developed orthopnea, PND as well as lightheadedness and then today noted significant dyspnea on exertion. Today he has also been experiencing retrosternal chest pressure that is nonradiating. He was recently admitted for CHF exacerbation from 07/08-07/09 and discharged on Bumex and Isordil which he reports compliance with. Follows with Dr. Montanez in Cardiology. Denies any recent illness, fevers, chills, abdominal pain, nausea, vomiting, urinary issues, diarrhea, palpitations, syncope. On arrival, vital signs stable though noted to be hypoxic to 87% placed on 2 L supplemental O2 now maintaining oximetry 93%. There is no leukocytosis. He has a stable normocytic anemia with H/H 10.8/33.0%. Creatinine 3.93, increased from baseline of around 2.49. BUN 61. Electrolyte levels normal except for chloride 92, Ca 10.7 and CO2 31. Glucose 237. Total bilirubin 3.1, AST 151, ALT 88, alkaline phosphatase 755. Initial troponin 54.2, repeat pending. BNP 1402. Negative for influenza, RSV, COVID-19. Chest x-ray shows interstitial prominence with patchy bilateral opacities, slightly decreased when compared to prior but no new confluent airspace consolidation. EKG shows ventricular paced rhythm, rate 82, no ST or depressions, no significant change from prior EKGs. In the ED, given 40 mg IV Lasix and 1 mg morphine. Patient will be admitted for further management of CHF exacerbation with chest pain. Review of Systems Review of Systems: General: No fevers, malaise, unintentional weight loss HEENT: No blurred vision, diplopia. No sore throat, nasal congestion, rhinorrhea, sinus pain, ear pain Cardiovascular: +chest pain. No palpitations, or leg edema Respiratory: +orthopnea, +PND, +go. No wheezing, cough GI: No abdominal pain, nausea, vomiting, diarrhea, constipation, melena, hematochezia : No dysuria, hematuria, increased urinary frequency, decreased urinary output MSK: No myalgia, back pain Neuro: No headaches, weakness, paresthesias Skin: No rashes or lesions [facility] Medical History Hospital discharge follow-up Biventricular ICD (implantable cardioverter-defibrillator) in place Congestive heart failure Chronic kidney disease (CKD) stage G3b/A1, moderately decreased glomerular filtration rate (GFR) between 30-44 mL/min/1.73 square meter and albuminuria creatinine ratio less than 30 mg/g Chronic atrial fibrillation Congestive heart failure Heart failure with reduced ejection fraction Acute on chronic systolic (congestive) heart failure CAD (coronary artery disease) Ischemic cardiomyopathy History of GI bleed Aortic aneurysm TIA (transient ischemic attack) Gout Obesity (BMI 30-39.9) GERD (gastroesophageal reflux disease) Hypercholesterolemia Type 2 diabetes mellitus with hyperglycemia Hypertension Family History Father CVD (cardiovascular disease) Hypertension Mother Cancer Surgical History History of cardiac defibrillator placement Coronary artery disease involving coronary bypass graft History of cholecystectomy Social History Household Members: Family Housing: Apartment Do you presently have visiting nurse or other home services: No Alcohol intake: never Comment: pt refused fall prevention measures Patient Tobacco Use Status: Former Tobacco user Quit Date: 1985 Years Smoked: quit 1985 e-Cigarette/Vaping Use: Never Used Second Hand Smoke Exposure: No Advance Directives: Yes Advance Directives on File: Yes Advance Directives Date on File: 06/19/22 service: Yes Current occupational status: retired Cognitive needs: No Hearing needs: No Vision needs: Yes Meds Allergies Allergy/AdvReac Type Severity Reaction Status Date / Time dabigatran etexilate Allergy Unknown indigestion Verified 07/24/23 15:37 [Pradaxa] sacubitril [From ENTRESTO] Allergy Unknown FEELS LIKE Verified 07/24/23 15:37 HAVING A HEART ATTACK valsartan [From ENTRESTO] Allergy Unknown FEELS LIKE Verified 07/24/23 15:37 HAVING A HEART ATTACK Home Medications Medication Instructions Recorded Confirmed Last Taken Type multivitamin 1 tab PO DAILY 04/12/20 07/24/23 05/21/23 History meclizine 25 mg tablet 25 mg PO TID PRN Dizziness 01/09/23 07/24/23 05/21/23 History atorvastatin 80 mg tablet 80 mg PO DAILY 07/07/23 07/24/23 07/07/23 History sennosides 8.6 mg-docusate sodium 1 tab-cap PO BEDTIME PRN 07/08/23 07/24/23 Unknown History 50 mg tablet (Senna-S) Constipation Physical Exam Vital Signs and Narrative: Vital Signs: Last Vital Signs Temp 97.8 F 09/05/23 20:22 Pulse 75 09/05/23 20:22 Resp 18 09/05/23 20:22 BP 123/57 L 09/05/23 20:22 Pulse Ox 89 L 09/05/23 20:22 O2 Del Method Room Air 09/05/23 20:22 Oxygen Flow Rate 2 09/05/23 20:22 BMI result Body Mass Index 25.4 Constitutional - Awake and Alert, No apparent distress Eyes - PERRLA, EOMI Cardiovascular - S1S2, RRR, 2+ ble edema Respiratory - Normal lung expansion, Normal respiratory effort, No respiratory distress, bibasilar crackles Gastrointestinal - NT / ND; +BS; No rebound or guarding Extremities - no calf tenderness bilaterally, no swelling Skin - Warm/Dry Neurological - Alert & oriented x3 Psychological - Appropriate affect Results Labs 09/05/23 20:32 09/05/23 20:32 Labs: Laboratory Results - last 24 hr 09/05/23 09/05/23 20:32 20:35 MCV 92.4 MCH 30.3 MCHC 32.7 RDW 17.1 H Plt Count 169 MPV 11.4 Immature Gran % (Auto) 0.6 H Neut % (Auto) 79.5 H Lymph % (Auto) 5.3 L [place] % (Auto) 13.4 H Eos % (Auto) 0.6 Baso % (Auto) 0.6 Lymph # (Auto) 0.4 L [place] # (Auto) 1.1 Eos # (Auto) 0.1 Baso # (Auto) 0.1 Abs Immat Gran (auto) 0.05 H Absolute Neuts (auto) 6.6 Absolute Nucleated RBC 0.000 Nucleated RBC % (auto) 0.0 PT 19.4 H INR 1.6 H APTT 50.2 H VBG pH 7.47 H VBG pCO2 48 VBG pO2 37 VBG HCO3 36 H VBG O2 Saturation 58.0 VBG Base Excess 11.1 Anion Gap 18 Estim Creat Clear Calc 13.3 Estimated GFR 15 Random Glucose 237 H Calcium 10.7 H D Magnesium 2.3 Total Bilirubin 3.3 H AST 151 H ALT 88 H Alkaline Phosphatase 755 H Troponin I High Sens 54.2 H D B-Natriuretic Peptide 1402 H Total Protein 8.4 H Albumin 3.3 L Influenza Type A (PCR) NEGATIVE Influenza Type B (PCR) NEGATIVE RSV RNA Qual (PCR) NEGATIVE SARS-CoV-2 RNA (RT-PCR) NEGATIVE Imaging Radiologist's Impressions: Impressions Chest X-Ray 09/05/23 20:46 IMPRESSION: Interstitial prominence with patchy bilateral opacities, slightly decreased when compared to the prior examination. No new confluent airspace consolidation. Assessment and Plan (1) CHF exacerbation: Status: Acute (2) Acute hypoxemic respiratory failure: Status: Acute (3) Chest pain: Status: Acute Plan 83-year-old male with history of [id number] type 2 diabetes, GERD, hyperlipidemia, aortic aneurysm, heart failure reduced ejection fraction, coronary artery disease s/p CABG, CKD stage 4, TIA, chronic atrial fibrillation on Xarelto with biventricular ICD in place admitted for acute CHF exacerbation and chest pain. # acute CHF exacerbation with acute hypoxemic respiratory failure (O2 87% on RA) -CXR shows interstitial prominence, BNP 1400 -echo 04/2023 shows moderately dilated left ventricle with severely reduced LV ejection fraction of 20-25% with regional wall motion abnormality consistent with ischemic cardiomyopathy. There is also moderately dilated right ventricle with mildly reduced RV systolic function and severe biatrial enlargement. Moderate eccentric mitral regurgitation, mild aortic stenosis, moderately elevated RV systolic pressure was severely elevated right atrial pressures -40 mg IV Lasix daily -daily weights -strict I&O -cardiac diet -continue supplemental O2 to maintain oximetry >92% -consider Cardiology consult if not improving #Acute kidney injury-likely cardiorenal -creatinine 3.93, baseline 2.4. CKD stage 4 at baseline -diurese as above -avoid nephrotoxins -strict I&O -follow renal function/lytes # typical chest pain -possibly secondary to above, improved with morphine. However, can not rule out NSTEMI -initial troponin 54.2, repeat pending -EKG without ST/depressions -initiate therapeutic Lovenox -echo ordered -monitor on telemetry # elevated troponin -as above # elevated LFTs -total bilirubin 3.3, AST 151, ALT 88, alkaline phosphatase 755 -GGT pending -RUQ ultrasound pending -follow liver panel #Chronic A. Fib- rate is controlled -presently not on any rate control med -continue xarelto #Non insulin dependent type 2 diabetes- without hyperglycemia -hold PO meds (sitagliptin and glimeperide) -POCs, sliding scale and diabetic diet #HTN -BP improving, but remains somewhat soft -continue holding hydralazine. Consider restarting at lower dose if necessary #HLD -statin #BPH -Flomax Full Code DVT prophyalxis- therapeutic Lovenox full code pt requires inpt stay at least 2 midnights due to acute CHF exacerbation with hypoxemic respiratory failure requiring IV diuresis, supplemental O2 and close monitoring of renal function and electrolyte levels as well as close monitoring of intake versus output to prevent further cardiorenal decompensation Quality Stroke Does the patient have a stroke diagnosis?: No VTE Prior VTE?: No VTE Risk Level:: Medical - moderate - high VTE Device Contraindication: Treatment Not Indicated VTE Drug Contraindication: N/A - Med Ordered
[2023-09-05 23:11] LABS: Gamma Glutamyl Transpeptidase 1029 U/L (11-51)
[2023-09-06] VITALS (12 sets, daily range): BP systolic 91–120; BP diastolic 33–57; PULSE 69–80; RESP 14–25; TEMP 36.6–37.3; O2SAT 84–97
[2023-09-06] MEDS: Aspirin Enteric Coated 81 MG TABLET.DR PO (00:20)
[2023-09-06] MEDS: Gabapentin 100 MG CAPSULE PO ×2 (00:21→21:08)
[2023-09-06 02:04] LABS: Appearance Urine Clear; Color Urine Yellow; Glucose Urine UA Negative (Negative); Leukocyte Esterase Urine Negative (Negative); Nitrite Urine Negative (Negative); PH 5.5 (5.0-9.0); UMIC TRIGGER UACC YES; Urine Blood Moderate (2+) (Negative); Urine Ketones Negative (Negative); Urine Protein 100 (2+) mg/dL (Neg-Trace)
[2023-09-06 02:18] LABS: Bacteria Urine Trace (None Seen); RBC Urine 0-2 /HPF (0-2); Squamous Epithelial Cell Urine 0-2 /HPF (0-2); WBC Urine 0-5 /HPF (0-5)
[2023-09-06 02:33] LABS: Troponin-I High Sensitivity 69.4 ng/L (<3.5-35.0)
--- NOTE | 2023-09-06 05:12 | PM.EVENT ---
Event Note Date of Service: 09/06/23 Event Note: Patient with significant hematuria. Will place Gaytan and initiate CBI. Consulting Urology. Hold Lovenox Time Spent With Patient Time: Total time managing care of this patient today ____ minutes.
[2023-09-06 05:33] LABS: MANUAL DIFF FLAG NO
[2023-09-06 05:38] LABS: Basophils Percent Auto 0.4 % (0-2); Eosinophils Absolute Auto 0.1 X10*3/uL (0.0-0.4); Eosinophils Percent Auto 0.8 % (0-4); Hematocrit 30.1 % (42.0-52.0); Hemoglobin 9.9 g/dl (14.0-18.0); Imm Gran Abs Auto 0.04 X10*3/uL (0.00-0.03); Imm Gran Pct Auto 0.4 % (0.0-0.4); Lymphocytes Absolute Auto 0.4 X10*3/uL (1.2-4.9); Lymphocytes Percent Auto 4.6 % (20-40); Mean Corpuscular HGB Conc 32.9 g/dl (31.0-36.0); Mean Corpuscular Volume 91.2 fL (80.0-98.0); Mean Platelet Volume 11.8 fL (9.4-12.4); Monocytes Absolute Auto 1.2 X10*3/uL (0.1-1.2); Monocytes Percent Auto 12.7 % (2-11); Neutrophils Absolute Auto 7.5 x10*3/uL (2.0-8.3); Neutrophils Percent Auto 81.1 % (45-73); Platelet Count 164 X10*3/uL (160-400); Red Cell Distribution Width 17.1 % (11.0-16.0); White Blood Count 9.3 X10*3/uL (4.8-10.8)
[2023-09-06 05:56] LABS: Alanine Aminotransferase 79 U/L (0-40); Alkaline Phosphatase 677 U/L (39-117); Anion Gap 18 (12-20); Aspartate Amino Transferase 143 U/L (5-37); Bilirubin Total 3.1 mg/dL (0.0-1.0); Blood Urea Nitrogen 61 mg/dL (9-16); Calcium 9.8 mg/dL (8.4-10.2); Carbon Dioxide 29 mmol/L (22-29); Chloride 93 mmol/L (96-108); Estimated Glomerular Filt Rate 14; Glucose Random 115 mg/dL (60-115); Potassium 2.9 mmol/L (3.3-5.1); Sodium 137 mmol/L (135-145); Total Protein 7.7 g/dL (6.5-8.0)
[2023-09-06 05:57] LABS: B Type Natriuretic Peptide 1332 pg/mL (<100)
[2023-09-06] MEDS: Lidocaine HCl 2 % Urojet 10 ML JEL.PF.APP TOPICAL (06:00)
--- NOTE | 2023-09-06 06:44 | PC.NURSE ---
following straight cath of patient he was noted to be bleeding large amounts via penis. MD notified via [facility]. patient is on blood thinners. instructed to continue to monitor patient. bleeding noted to have slowed down. however it increased in volume again and pt unable to void. notified via tiger. Dr Pierce present at bedside. CBI ordered. this RN unable to place 3way cath x1 attempt. notified Dr Oliveira as he was present. he is now at bedside to assist. he was able to successfully place a coude cath. draining pink tinged yellow urine without difficulty. tizanidine also ordered for this patient however it is not stocked. pharmacy called at 6am to bring med. pt is aware that it will take some time for to receive this med.
--- NOTE | 2023-09-06 07:00 | CA_ITS ---
Transthoracic Echocardiogram Patient (Last, First, Middle): Ethan Macias D Gender: Male Date of : 1940 Age: 83 Procedure Date: 09/06/2023 Procedure Type: Transthoracic Echocardiogram Location: ER Height: 167.64 cm Weight: 71.22 kg BSA: 1.80 m2 Heart Rate: bpm BP: 108 / 42 mmHg Director Of Agriculture: SB Referring MD: Ivette JACKSON Symptoms: elevated trops Study Quality: Adequate Conclusions: - 1. Moderately dilated left ventricle with severely reduced LV ejection fraction 25-30% 2. Dilated right ventricle with moderately reduced RV systolic function 3. Severely dilated left and right atrium 4. Moderate mitral regurgitation next 5. No clear aortic stenosis noted 6. Mildly elevated right ventricular systolic pressure with mildly elevated right atrial pressures 7. Mildly dilated ascending aorta Findings Left Ventricle Moderately increased left ventricular cavity size. There is normal left ventricular wall thickness. The left ventricular systolic function is severely decreased. The visually estimated ejection fraction is between 25 30%. Diastolic function is indeterminate on the basis of available data. Wall Motion Rest Echo Findings The entire apex, anterior wall, anteroseptal wall, anterolateral wall, the mid inferior, mid inferoseptal, and mid inferolateral segments are hypokinetic. The basal inferior, basal inferoseptal, and basal inferolateral segments are akinetic. Right Ventricle Mildly increased right ventricular cavity size. There is moderately decreased right ventricular systolic function. There is an ICD wire and pacemaker wire seen in the right ventricle. Atria The left atrium is severely dilated. There is no evidence of interatrial shunt. The right atrium is moderately dilated. Aortic Valve There is mild calcification of the aortic valve. There is no aortic valve stenosis. There is no aortic valve regurgitation. Mitral Valve There is mild anterior and posterior mitral leaflet thickening. There is moderate mitral valve regurgitation. There is no mitral valve stenosis. Pulmonic Valve The pulmonic valve is likely normal. There is trace to mild pulmonic valve regurgitation. Tricuspid Valve Normal tricuspid valve structure. There is mild to moderate tricuspid valve regurgitation. Mildly elevated right atrial pressure. Mild pulmonary hypertension is present. Great Vessels The pulmonary artery was not well visualized. There is mild dilatation of the ascending aorta measuring 3.80 cm. Venous The inferior vena cava is mildly dilated and collapses less than 50% with inspiration. Pericardium/Pleural There is no evidence of pericardial effusion. Prior Study Comparison Changes noted compared to prior study dated: 05/22/2023. LV systolic function may be marginally improved Measurements 2D Linear Measurements IVSd: 1.00 0.6-0.9/0.6-1.0 cm LVIDd: 6.70 3.9-5.3/4.2-5.9 cm LVIDd Index: 3.72 2.4-3.2/2.2-3.1 cm/m2 LVIDs: 6.33 2.0-3.6 cm LVPWd: 0.58 0.7-1.1 cm LA Diam: 4.90 2.7-3.8/3.0-4.0 cm LAIDs Index: 2.72 1.5-2.3 cm/m2 LV Mass: 276.94 67-162/88-224 g LV Mass Index: 153.85 43-95/49-115 g/m2 LVOT Diam: 2.00 3.0+(-)1.3 cm 2D Systolic Function EF 4C: 21.70 >55% EF 2C: 34.10 >55% EF BiP: 28.80 >55% Mitral Valve MV Pk E: 1.05 MV PK A: 0.26 MV Decel Time: 144.00 E/A: 4.00 E'Medial: 4.95 E/E' Med: 21.20 PHT: 42.00 MVA PHT: 5.24 Decel [place]: 7.24 MR VTI: 1.50 Aortic Valve AoV Pk Dean: 1.56 AoV Mn Dean: 1.04 AoV VTI: 0.31 AoV Pk Grad: 10.00 Aov Mn Grad: 5.00 EDITH Cont.VTI: 1.86 LVOT LVOT Pk Dean: 0.87 LVOT Mn Dean: 0.65 LVOT VTI: 0.19 LVOT Pk Grad: 3.00 LVOT Mn Grad: 2.00 LVOT Diam: 2.00 LVOT Area: 3.14 Diastolic Function MV Pk E: 1.05 MV Pk A: 0.26 E/A: 4.00 E'Medial: 4.95 E/E' Med: 21.20 Right Ventricle TAPSE (mm): 12.10 TVS' Dean: 9.00 Tricuspid Valve TR Pk Dean: 2.99 TR Pk Grad: 36.00 RA Press: 8.00 RVSP: 44.00 Great Vessels Aorta Sinus of Valsalva: 3.00 2.0-3.5 cm Ao Asc: 3.80 2.1-3.4 cm Pulmonary Valve PV Pk Dean: 1.25 Peak PV Grad: 6.00 Updated in Other Vendor System with Status of Final Chevy Montanez MD electronically signed on 09/06/2023 3:35:21 PM with status of Final
[2023-09-06] MEDS: TiZANidine HCL 4 MG TABLET PO ×2 (07:51→19:33)
[2023-09-06] MEDS: Potassium Chloride ER 20 MEQ TAB.ER.PRT 40 MEQ PO (07:52)
--- NOTE | 2023-09-06 08:00 | PC.NURSE ---
patient a&ox3, frederick cath patient/draining-hematuria noted, alarm security or surveillance monitor intact-paced on monitor 70s, vitals otherwise stable, pt on 2L NC for sob-not home o2 dependent, lungs clear throughout, call marie within reach, will continue to monitor
--- NOTE | 2023-09-06 08:23 | MHC.EDTECH ---
Late entry: @0700 pt was found by this tech leaking hematuria out of urinary frederick cath. pt was cleaned, clean linen given, blankets given, pt now comfortable in bed with call marie within reach. rn aware.
--- NOTE | 2023-09-06 08:52 | PHA.MEDREC ---
Pharmacy Consult ? Medication Reconciliation Pharmacy has completed the medication reconciliation. Patient had medications through [facility] on his phone, went over list
--- NOTE | 2023-09-06 08:57 | P.PNIM_ITS ---
Subjective Subjective Date of Service: 09/06/23 Interval History: sob a bit better Constitutional Constitutional: Reports weight loss (60lbs over 2 years) Physical Exam 2 Vital Signs: Vital Signs: Last Vital Signs Temp 98.1 F 09/06/23 07:20 Pulse 75 09/06/23 07:20 Resp 22 H 09/06/23 07:20 BP 108/42 L 09/06/23 07:20 Pulse Ox 93 09/06/23 07:20 O2 Del Method Room Air 09/06/23 07:20 Oxygen Flow Rate 2 09/05/23 20:22 BMI result Body Mass Index 25.4 General: AO X 3, no acute distress Resp: Crackles bilateral, no accessory muscles used CVS: S1,S2,RRR GI: soft, non tender, non distended Neuro: motor grossly intact, alert Psych: appropriate affect, appropriate insight Objective Data Active Medications Acetaminophen (Acetaminophen 325 Mg Tablet) 650 mg PO Q6H PRN PRN Reason: Pain, Mild (Pain Scale 1-3) Docusate Sodium (Docusate Sodium 100 Mg Capsule) 100 mg PO DAILY PRN PRN Reason: Constipation Furosemide (Furosemide 40 Mg/4 Ml Vial) 40 mg IVPUSH DAILY [facility]; Protocol Ondansetron HCl (Ondansetron Hcl 4 Mg/2 Ml Vial) 4 mg IVPUSH Q8H PRN PRN Reason: Nausea and Vomiting Senna (Sennosides 8.6 Mg Tablet) 17.2 mg PO BEDTIME [facility] Last Admin: 09/05/23 23:26 Dose: Not Given Documented By: DEBRA Non-Admin Reason: pt took prior to arrival Sodium Chloride (0.9 % Sodium Chloride Flush 3 Ml Syringe) 3 ml IVFLUSH QSHIFT [facility] Last Admin: 09/06/23 00:24 Dose: Not Given Documented By: DEBRA Non-Admin Reason: Previously Administered Labs 09/06/23 04:50 09/06/23 04:50 Labs: Laboratory Results - last 24 hr 09/05/23 09/05/23 09/06/23 20:32 20:35 01:54 MCV 92.4 MCH 30.3 MCHC 32.7 RDW 17.1 H Plt Count 169 MPV 11.4 Immature Gran % (Auto) 0.6 H Neut % (Auto) 79.5 H Lymph % (Auto) 5.3 L [place] % (Auto) 13.4 H Eos % (Auto) 0.6 Baso % (Auto) 0.6 Lymph # (Auto) 0.4 L [place] # (Auto) 1.1 Eos # (Auto) 0.1 Baso # (Auto) 0.1 Abs Immat Gran (auto) 0.05 H Absolute Neuts (auto) 6.6 Absolute Nucleated RBC 0.000 Nucleated RBC % (auto) 0.0 PT 19.4 H INR 1.6 H APTT 50.2 H VBG pH 7.47 H VBG pCO2 48 VBG pO2 37 VBG HCO3 36 H VBG O2 Saturation 58.0 VBG Base Excess 11.1 Anion Gap 18 Estim Creat Clear Calc 13.3 Estimated GFR 15 Random Glucose 237 H Calcium 10.7 H D Magnesium 2.3 Total Bilirubin 3.3 H Direct Bilirubin GGT 1029 H AST 151 H ALT 88 H Alkaline Phosphatase 755 H Troponin I High Sens 54.2 H D B-Natriuretic Peptide 1402 H Total Protein 8.4 H Albumin 3.3 L Urine Color Yellow Urine Appearance Clear Urine pH 5.5 Ur Specific [place] 1.010 Urine Protein 100 (2+) H Urine Glucose (UA) Negative Urine Ketones Negative Urine Blood Moderate (2+) H Urine Nitrite Negative Ur Leukocyte Esterase Negative Urine RBC 0-2 Urine WBC 0-5 Ur Squamous Epith Cells 0-2 Urine Bacteria Trace Hyaline Casts 3-5 Influenza Type A (PCR) NEGATIVE Influenza Type B (PCR) NEGATIVE RSV RNA Qual (PCR) NEGATIVE SARS-CoV-2 RNA (RT-PCR) NEGATIVE 09/06/23 09/06/23 09/06/23 02:08 04:49 04:50 MCV 91.2 MCH 30.0 MCHC 32.9 RDW 17.1 H Plt Count 164 MPV 11.8 Immature Gran % (Auto) 0.4 Neut % (Auto) 81.1 H Lymph % (Auto) 4.6 L [place] % (Auto) 12.7 H Eos % (Auto) 0.8 Baso % (Auto) 0.4 Lymph # (Auto) 0.4 L [place] # (Auto) 1.2 Eos # (Auto) 0.1 Baso # (Auto) 0.0 Abs Immat Gran (auto) 0.04 H Absolute Neuts (auto) 7.5 Absolute Nucleated RBC 0.000 Nucleated RBC % (auto) 0.0 PT INR APTT VBG pH VBG pCO2 VBG pO2 VBG HCO3 VBG O2 Saturation VBG Base Excess Anion Gap 18 Estim Creat Clear Calc 13.0 Estimated GFR 14 Random Glucose 115 Calcium 9.8 D Magnesium Total Bilirubin 3.1 H Direct Bilirubin 2.0 H GGT AST 143 H ALT 79 H Alkaline Phosphatase 677 H Troponin I High Sens 69.4 H B-Natriuretic Peptide 1332 H Total Protein 7.7 Albumin 3.0 L Urine Color Urine Appearance Urine pH Ur Specific [place] Urine Protein Urine Glucose (UA) Urine Ketones Urine Blood Urine Nitrite Ur Leukocyte Esterase Urine RBC Urine WBC Ur Squamous Epith Cells Urine Bacteria Hyaline Casts Influenza Type A (PCR) Influenza Type B (PCR) RSV RNA Qual (PCR) SARS-CoV-2 RNA (RT-PCR) Assessment and Plan (1) Chest pain: Status: Acute Plan 83M PMH type 2 diabetes, GERD, hyperlipidemia, aortic aneurysm, heart failure reduced ejection fraction, coronary artery disease s/p CABG, CKD stage 4, TIA, chronic atrial fibrillation on Xarelto with biventricular ICD in place presented with chest pain and sob, found to be in chf, rico on ckd iv, and noted to have new finding of liver mets, hematuria. acute hypoxic respiratory failure due to acute on chronic systolic and right sided chf now on room air continue iv lasix, follow up echo and cardio RICO on CKD IV cardiorenal, montior while diuresing chest pain doubt acs, troponin flat new finding of liver metasteses with weight loss and suspicious lung nodule suspect primary lung cancer with liver mets biopsy of liver met oncology eval hematuria cbi, eval, holding xarelto monitor hgb chronic afib holding xarelto for biopsy and hematuria coreg DM insulin bph flomax dvt prophylaxis - mechanical due to hematuria full code reason for continued hospitalization:active hematuria Quality Stroke Does the patient have a stroke diagnosis?: No VTE Prior VTE?: No VTE Risk Level:: Medical - moderate - high VTE Device Contraindication: Treatment Not Indicated VTE Drug Contraindication: N/A - Med Ordered
[2023-09-06] MEDS: 0.9 % Sodium Chloride Flush 3 ML SYRINGE IVFLUSH ×3 (09:11→21:09)
--- NOTE | 2023-09-06 09:12 | PC.NURSE ---
personal shopper in room stated to hold elizabeth that he is having dr pineda change the order to cortney.
--- NOTE | 2023-09-06 11:20 | PM.CNCAR ---
History of Present Illness History of Present Illness Date of Service: 09/06/23 Requesting physician: Giovanni Martinez Consult reason: congestive heart failure Chief complaint: CHF exacerbation, hypoxia Narrative: I was consulted to see Ethan again for progressive symptoms of shortness of breath. He said he started noticing symptoms yesterday and took his metolazone but did not take his morning Bumex. He had Bi V lead revision 2 weeks ago. Seems like it was adequately pacing him. He has not having any of his jumping sensation in his chest. However he has been losing weight. He has not been able to keep track of his weight gain because he has been having rapid weight loss and he tells me that he was told today that he has metastases to his liver with unknown primary. He is quite dejected about it. He was given Lasix yesterday but was not able to pee and they tried to straight cath him and developed significant hematuria, has history of BPH. He continues to hematuria. He is oral anticoagulation on hold. After straight catheterization in him he had diuresed about a L. He continues to diurese. His shortness of breath is improved. However he complains of weakness. Blood pressure on the softer side. Denies any palpitations. His [employer] ICD was just checked at bedside and his [employer] is working well. Review of Systems Constitutional: Constitutional: Reports weakness and Reports weight loss Eyes: Eyes: Reports no additional eye complaints Cardiovascular: Cardiovascular: Denies chest pain, Denies syncope, Reports leg edema, Denies Loss of Consciousness, Denies palpitations, Reports dyspnea on exertion and Reports orthopnea Respiratory: Respiratory: Reports no additional respiratory complaints and Reports dyspnea on exertion Genitourinary: Genitourinary: Reports no additional male genitourinary complaints Neurologic: Reports system reviewed and no additional complaints, except as documented, Denies syncope and Reports weakness Endocrine: Endocrine: Denies palpitations [facility] Past Medical History Medical History Hospital discharge follow-up Biventricular ICD (implantable cardioverter-defibrillator) in place Congestive heart failure Chronic kidney disease (CKD) stage G3b/A1, moderately decreased glomerular filtration rate (GFR) between 30-44 mL/min/1.73 square meter and albuminuria creatinine ratio less than 30 mg/g Chronic atrial fibrillation Congestive heart failure Heart failure with reduced ejection fraction Acute on chronic systolic (congestive) heart failure CAD (coronary artery disease) Ischemic cardiomyopathy History of GI bleed Aortic aneurysm TIA (transient ischemic attack) Gout Obesity (BMI 30-39.9) GERD (gastroesophageal reflux disease) Hypercholesterolemia Type 2 diabetes mellitus with hyperglycemia Hypertension Family History Family History Father CVD (cardiovascular disease) Hypertension Mother Cancer Surgical History Surgical History History of cardiac defibrillator placement Coronary artery disease involving coronary bypass graft History of cholecystectomy Social History Social History Household Members: Family Housing: Apartment Do you presently have visiting nurse or other home services: No Alcohol intake: never Comment: pt refused fall prevention measures Patient Tobacco Use Status: Former Tobacco user Quit Date: 1985 Smoked: quit 1985 e-Cigarette/Vaping Use: Never Used Second Hand Smoke Exposure: No Advance Directives: Yes Advance Directives on File: Yes Advance Directives Date on File: 06/19/22 Nutrition Risks: No Nutritional Risk service: Yes Current occupational status: retired Cognitive needs: No Hearing needs: No Vision needs: Yes Meds Allergies Allergy/AdvReac Type Severity Reaction Status Date / Time dabigatran etexilate Allergy Unknown indigestion Verified 07/24/23 15:37 [Pradaxa] sacubitril [From ENTRESTO] Allergy Unknown FEELS LIKE Verified 07/24/23 15:37 HAVING A HEART ATTACK valsartan [From ENTRESTO] Allergy Unknown FEELS LIKE Verified 07/24/23 15:37 HAVING A HEART ATTACK Active Medications: Current Medications Acetaminophen (Acetaminophen 325 Mg Tablet) 650 mg PO Q6H PRN PRN Reason: Pain, Mild (Pain Scale 1-3) Allopurinol (Allopurinol 100 Mg Tablet) 100 mg PO BEDTIME [facility] Atorvastatin Calcium (Atorvastatin Calcium 80 Mg Tablet) 80 mg PO DAILY@1800 [facility] Bumetanide (Bumetanide 1 Mg/4 Ml Vial) 2 mg IVPUSH BID@0900,1700 [facility]; Protocol Carvedilol (Carvedilol 3.125 Mg Tablet) 3.125 mg PO BID [facility]; Protocol Docusate Sodium (Docusate Sodium 100 Mg Capsule) 100 mg PO DAILY PRN PRN Reason: Constipation Gabapentin (Gabapentin 100 Mg Capsule) 100 mg PO BEDTIME [facility] Ondansetron HCl (Ondansetron Hcl 4 Mg/2 Ml Vial) 4 mg IVPUSH Q8H PRN PRN Reason: Nausea and Vomiting Ropinirole HCl (Ropinirole Hcl 0.25 Mg Tablet) 0.25 mg PO BID@1200,2100 [facility] Senna (Sennosides 8.6 Mg Tablet) 17.2 mg PO BEDTIME [facility] Last Admin: 09/05/23 23:26 Dose: Not Given Sodium Chloride (0.9 % Sodium Chloride Flush 3 Ml Syringe) 3 ml IVFLUSH QSHIFT [facility] Last Admin: 09/06/23 09:11 Dose: 3 ml Tamsulosin HCl (Tamsulosin Hcl 0.4 Mg Capsule) 0.4 mg PO BEDTIME [facility] Home Medications Medication Instructions Recorded Confirmed Last Taken Type multivitamin 1 tab PO DAILY 04/12/20 09/06/23 09/05/23 History meclizine 25 mg tablet 25 mg PO TID PRN Dizziness 01/09/23 09/06/23 09/05/23 History atorvastatin 80 mg tablet 80 mg PO DAILY@1800 07/07/23 09/06/23 07/07/23 History allopurinol 100 mg tablet 100 mg PO BEDTIME 09/06/23 09/06/23 Unknown History bumetanide 2 mg tablet 2 mg PO BID@0800,1200 09/06/23 09/06/23 09/05/23 History glimepiride 4 mg tablet 4 mg PO DAILY@1200 09/06/23 09/06/23 Unknown History ropinirole 0.25 mg tablet 0.25 mg PO BID@1200,2100 09/06/23 09/06/23 09/05/23 History sitagliptin phosphate 50 mg tablet 50 mg PO DAILY@1800 09/06/23 09/06/23 09/05/23 History (Januvia) Physical Exam Vital Signs: Vital Signs: Last Vital Signs Temp 97.9 F 09/06/23 10:13 Pulse 72 09/06/23 10:13 Resp 18 09/06/23 10:13 BP 99/45 L 09/06/23 10:13 Pulse Ox 92 09/06/23 10:13 O2 Del Method Room Air 09/06/23 10:13 Oxygen Flow Rate 2 03/13/24 20:22 BMI result Body Mass Index 25.4 Const: General: cooperative, comfortable, alert and awake Nutritional Appearance: cachectic Orientation/consciousness: patient oriented x3 HEENT: Head: Yes normocephalic and Yes atraumatic Neck: Neck: Yes trachea midline, Yes supple and Yes JVD Resp: Effort & Inspection: normal respiratory effort Auscultation: crackles Cardio: Jugular venous distension: JVD Palpation: abnormal PMI displaced PMI Rate: regular rate Rhythm: regular rhythm Heart sounds: S1 normal heart sound present, S2 normal heart sound present, no click, no gallops and no rubs GI: Auscultation: normal bowel sounds Skin: General skin exam: no rashes or lesions noted Neuro: General: patient oriented x3 and no focal motor deficits Extrem: General: No clubbing, No cyanosis and Yes edema Objective Labs and Meds 09/06/23 04:50 09/06/23 04:50 Lab results: Laboratory Results - last 24 hr 09/05/23 09/05/23 09/06/23 20:32 20:35 01:54 WBC 8.3 RBC 3.57 L Hgb 10.8 L Hct 33.0 L MCV 92.4 MCH 30.3 MCHC 32.7 RDW 17.1 H Plt Count 169 MPV 11.4 Immature Gran % (Auto) 0.6 H Neut % (Auto) 79.5 H Lymph % (Auto) 5.3 L [place] % (Auto) 13.4 H Eos % (Auto) 0.6 Baso % (Auto) 0.6 Lymph # (Auto) 0.4 L [place] # (Auto) 1.1 Eos # (Auto) 0.1 Baso # (Auto) 0.1 Abs Immat Gran (auto) 0.05 H Absolute Neuts (auto) 6.6 Absolute Nucleated RBC 0.000 Nucleated RBC % (auto) 0.0 PT 19.4 H INR 1.6 H APTT 50.2 H VBG pH 7.47 H VBG pCO2 48 VBG pO2 37 VBG HCO3 36 H VBG O2 Saturation 58.0 VBG Base Excess 11.1 Sodium 137 Potassium 3.6 Chloride 92 L Carbon Dioxide 31 H Anion Gap 18 BUN 61 H Creatinine 3.93 H Estim Creat Clear Calc 13.3 Estimated GFR 15 Random Glucose 237 H Calcium 10.7 H D Magnesium 2.3 Total Bilirubin 3.3 H Direct Bilirubin GGT 1029 H AST 151 H ALT 88 H Alkaline Phosphatase 755 H Troponin I High Sens 54.2 H D B-Natriuretic Peptide 1402 H Total Protein 8.4 H Albumin 3.3 L Urine Color Yellow Urine Appearance Clear Urine pH 5.5 Ur Specific [place] 1.010 Urine Protein 100 (2+) H Urine Glucose (UA) Negative Urine Ketones Negative Urine Blood Moderate (2+) H Urine Nitrite Negative Ur Leukocyte Esterase Negative Urine RBC 0-2 Urine WBC 0-5 Ur Squamous Epith Cells 0-2 Urine Bacteria Trace Hyaline Casts 3-5 Influenza Type A (PCR) NEGATIVE Influenza Type B (PCR) NEGATIVE RSV RNA Qual (PCR) NEGATIVE SARS-CoV-2 RNA (RT-PCR) NEGATIVE 09/06/23 09/06/23 09/06/23 02:08 04:49 04:50 WBC 9.3 RBC 3.30 L Hgb 9.9 L Hct 30.1 L MCV 91.2 MCH 30.0 MCHC 32.9 RDW 17.1 H Plt Count 164 MPV 11.8 Immature Gran % (Auto) 0.4 Neut % (Auto) 81.1 H Lymph % (Auto) 4.6 L [place] % (Auto) 12.7 H Eos % (Auto) 0.8 Baso % (Auto) 0.4 Lymph # (Auto) 0.4 L [place] # (Auto) 1.2 Eos # (Auto) 0.1 Baso # (Auto) 0.0 Abs Immat Gran (auto) 0.04 H Absolute Neuts (auto) 7.5 Absolute Nucleated RBC 0.000 Nucleated RBC % (auto) 0.0 PT INR APTT VBG pH VBG pCO2 VBG pO2 VBG HCO3 VBG O2 Saturation VBG Base Excess Sodium 137 Potassium 2.9 L* Chloride 93 L Carbon Dioxide 29 Anion Gap 18 BUN 61 H Creatinine 4.01 H* Estim Creat Clear Calc 13.0 Estimated GFR 14 Random Glucose 115 Calcium 9.8 D Magnesium Total Bilirubin 3.1 H Direct Bilirubin 2.0 H GGT AST 143 H ALT 79 H Alkaline Phosphatase 677 H Troponin I High Sens 69.4 H B-Natriuretic Peptide 1332 H Total Protein 7.7 Albumin 3.0 L Urine Color Urine Appearance Urine pH Ur Specific [place] Urine Protein Urine Glucose (UA) Urine Ketones Urine Blood Urine Nitrite Ur Leukocyte Esterase Urine RBC Urine WBC Ur Squamous Epith Cells Urine Bacteria Hyaline Casts Influenza Type A (PCR) Influenza Type B (PCR) RSV RNA Qual (PCR) SARS-CoV-2 RNA (RT-PCR) EKG shows ventricular paced rhythm Imaging Radiologist's impression: Impressions Chest X-Ray 09/05/23 20:46 IMPRESSION: Interstitial prominence with patchy bilateral opacities, slightly decreased when compared to the prior examination. No new confluent airspace consolidation. Abdomen Ultrasound 09/05/23 23:13 IMPRESSION: Enlarged liver with multiple solid masses. Findings suspicious for metastatic disease. MRI or biopsy is recommended for further evaluation. Abdomen/Pelvis CT 09/06/23 06:52 IMPRESSION: Unenhanced CT of the chest, abdomen pelvis: 1. Findings suspicious for primary bronchogenic neoplasm with bilateral mediastinal lymphadenopathy and hepatic metastatic disease. A 2.5 cm right upper lobe nodule suspicious for neoplasm is present in association with bulky right paratracheal, right hilar and subcarinal lymphadenopathy and a single abnormal enlarged left hilar lymph node. Additionally, an indeterminate 1.4 cm nodule is present in the right lower pulmonary lobe and may represent a satellite lesion. Findings are present in the setting of mild-moderate centrilobular emphysema. Multiple hepatic lesions measuring up to 4 cm in diameter are present and are suspicious for metastatic disease. No skeletal metastatic disease identified. Smooth intralobular septal thickening is present in the right upper lobe and may represent asymmetric pulmonary edema or possible lymphangitic spread of tumor related to the 2.5 cm nodule noted above. 2. 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 3. Indeterminate 5 mm intermediate density lesion within the anteromedial aspect of the superior pole the right kidney (series 11 image 36) which may represent a proteinaceous cyst or solid parenchymal lesion. Recommend follow-up on the basis of oncologic imaging protocol in the setting of the above identified findings suspicious for bronchogenic neoplasm. 4. Borderline concentric mural thickening of the middle segment of the sigmoid colon over a 4.5 cm length with possible mural thickening up to 1.2 cm in diameter. Findings are most suspicious for physiologic contraction of the sigmoid colon in the setting of moderate sigmoid diverticulosis. The differential diagnosis includes a concentric mural tumor within the sigmoid colon. However, findings are most suspicious for benign mural thickening and physiologic coaptation of the sigmoid colon. Findings could be further evaluated with sigmoidoscopy or contrast fluoroscopy as clinically indicated. No evidence of active diverticulitis. 5. Abdominal aortic aneurysm measuring 3.6 cm in diameter and associated chronic ulceration as detailed above. Based on published guidelines in J Am Domingo Radiol 2013; 10(10):789-794 and J Vasc Surg. 2018; 67:2-77, the recommendation for an abdominal aortic aneurysm with diameter 3.5-3.9 cm is follow-up every 2 years. 5. Marked diffuse calcific atherosclerosis and marked diffuse coronary artery calcific atherosclerosis. Chest CT 09/06/23 06:52 IMPRESSION: Unenhanced CT of the chest, abdomen pelvis: 1. Findings suspicious for primary bronchogenic neoplasm with bilateral mediastinal lymphadenopathy and hepatic metastatic disease. A 2.5 cm right upper lobe nodule suspicious for neoplasm is present in association with bulky right paratracheal, right hilar and subcarinal lymphadenopathy and a single abnormal enlarged left hilar lymph node. Additionally, an indeterminate 1.4 cm nodule is present in the right lower pulmonary lobe and may represent a satellite lesion. Findings are present in the setting of mild-moderate centrilobular emphysema. Multiple hepatic lesions measuring up to 4 cm in diameter are present and are suspicious for metastatic disease. No skeletal metastatic disease identified. Smooth intralobular septal thickening is present in the right upper lobe and may represent asymmetric pulmonary edema or possible lymphangitic spread of tumor related to the 2.5 cm nodule noted above. 2. 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 3. Indeterminate 5 mm intermediate density lesion within the anteromedial aspect of the superior pole the right kidney (series 11 image 36) which may represent a proteinaceous cyst or solid parenchymal lesion. Recommend follow-up on the basis of oncologic imaging protocol in the setting of the above identified findings suspicious for bronchogenic neoplasm. 4. Borderline concentric mural thickening of the middle segment of the sigmoid colon over a 4.5 cm length with possible mural thickening up to 1.2 cm in diameter. Findings are most suspicious for physiologic contraction of the sigmoid colon in the setting of moderate sigmoid diverticulosis. The differential diagnosis includes a concentric mural tumor within the sigmoid colon. However, findings are most suspicious for benign mural thickening and physiologic coaptation of the sigmoid colon. Findings could be further evaluated with sigmoidoscopy or contrast fluoroscopy as clinically indicated. No evidence of active diverticulitis. 5. Abdominal aortic aneurysm measuring 3.6 cm in diameter and associated chronic ulceration as detailed above. Based on published guidelines in J Am Domingo Radiol 2013; 10(10):789-794 and J Vasc Surg. 2018; 67:2-77, the recommendation for an abdominal aortic aneurysm with diameter 3.5-3.9 cm is follow-up every 2 years. 5. Marked diffuse calcific atherosclerosis and marked diffuse coronary artery calcific atherosclerosis. Assessment and Plan (1) CHF exacerbation: Status: Acute Patient presents with acute congestive heart failure despite on diuretic dose and recent lead revision with LV pacing with LV pacing working currently. Unsure whether this is due to progressive myocardial dysfunction or ineffective biventricular pacing still. Continue IV diuresis with IV Bumex. Strict intake and output chart needs to be pursued. Continue carvedilol therapy. If blood pressure allows continue hydralazine therapy for vasodilation. Overall prognosis remains guarded. Continue monitor BMP and BNP. (2) Biventricular ICD (implantable cardioverter-defibrillator) in place: Status: Acute Biventricular ICD in place with recent lead revision for the left ventricle pacing. It seems to be working well by recent interrogation. No interventions required from that perspective. (3) Chronic atrial fibrillation: Status: Acute Chronic atrial fibrillation, currently rate control. Has failed rhythm control in the past. Currently developed hematuria after bladder catheterization. Hold off on Xarelto until this resolves. Consider urology consultation. Will follow Procedures Date of Service Date of Service: 09/06/23
--- NOTE | 2023-09-06 12:51 | MHC.EDTECH ---
pt was assisted out of bed to bedside sink for oral hygiene. pt walked with a steady gait out of bed and back to bed. call marie within reach.
[2023-09-06] MEDS: rOPINIRole HCL 0.25 MG TABLET PO ×2 (12:55→21:09)
--- NOTE | 2023-09-06 13:39 | MHC.CM.PN ---
Pt lives with his 2 sons, he is independent, he does not use home health services or medical equipment. HCP is on file and confirmed, naming: Reji and Merlin. Pt is a , PCP confirmed: Dr. Paez, transportation upon DC, sons. CM to follow and assist with DC planning.
--- NOTE | 2023-09-06 14:56 | PC.NURSE ---
this nurse took back over care of this pt and noted he had bumex ordered, pt bp has been soft, this nurse reached out to Dr. Martinez with BPs and was told to hold the bumex at this time, will waste the medication. pt currently sleeping, [place] cath hematuria, paced on lunchroom monitor in the 70s, call marie within reach, will continue to monitor
--- NOTE | 2023-09-06 16:50 | P.CNUR_ITS ---
History of Present Illness Consult details Consult date: 09/06/23 Narrative: 83-year-old male with history of [id number] type 2 diabetes, GERD, hyperlipidemia, aortic aneurysm, heart failure reduced ejection fraction, coronary artery disease s/p CABG, CKD stage 4, TIA, chronic atrial fibrillation on Xarelto with biventricular ICD in place presented to the ED earlier today for evaluation of dyspnea. Urology called to evaluate for hematuria. The patient is followed by [facility] urology for BPH and is on tamsulosin. He states when he came into the ED he was not able to urinate and a catheter was placed, when the catheter was removed there was blood noted and a frederick was placed. On exam, urine is pink tinged no clots. CTAP: Kidneys: Mild diffuse bilateral renal atrophy. Single punctate dystrophic calcification within the lateral aspect of the right kidney. bilateral simple cysts and a 5 mm intermediate density (24 Hounsfield unit) focus is present along the anterior medial aspect of the superior pole the right kidney which may represent a proteinaceous cyst or solid renal lesion. Urinary bladder: Dependent intraluminal gas is present within the lumen of the urinary bladder likely related to the Frederick catheter. No suspicious urinary bladder wall thickening. [facility] Past Medical History Medical History Hospital discharge follow-up Biventricular ICD (implantable cardioverter-defibrillator) in place Congestive heart failure Chronic kidney disease (CKD) stage G3b/A1, moderately decreased glomerular filtration rate (GFR) between 30-44 mL/min/1.73 square meter and albuminuria creatinine ratio less than 30 mg/g Chronic atrial fibrillation Congestive heart failure Heart failure with reduced ejection fraction Acute on chronic systolic (congestive) heart failure CAD (coronary artery disease) Ischemic cardiomyopathy History of GI bleed Aortic aneurysm TIA (transient ischemic attack) Gout Obesity (BMI 30-39.9) GERD (gastroesophageal reflux disease) Hypercholesterolemia Type 2 diabetes mellitus with hyperglycemia Hypertension Family History Family History Father CVD (cardiovascular disease) Hypertension Mother Cancer Surgical History Surgical History History of cardiac defibrillator placement Coronary artery disease involving coronary bypass graft History of cholecystectomy Social History Social History Household Members: Family and Children Household Members Other:: 3 Housing: Apartment Do you presently have visiting nurse or other home services: No Alcohol intake: never Comment: pt refuses alarms Patient Tobacco Use Status: Former Tobacco user Quit Date: 1985 Years Smoked: quit 1985 e-Cigarette/Vaping Use: Never Used Second Hand Smoke Exposure: No Advance Directives Date on File: 06/19/22 service: Yes Current occupational status: retired Cognitive needs: No Hearing needs: No Vision needs: Yes Meds Allergies Allergy/AdvReac Type Severity Reaction Status Date / Time dabigatran etexilate Allergy Unknown indigestion Verified 07/24/23 15:37 [Pradaxa] sacubitril [From ENTRESTO] Allergy Unknown FEELS LIKE Verified 07/24/23 15:37 HAVING A HEART ATTACK valsartan [From ENTRESTO] Allergy Unknown FEELS LIKE Verified 07/24/23 15:37 HAVING A HEART ATTACK Active Medications: Current Medications Acetaminophen (Acetaminophen 325 Mg Tablet) 650 mg PO Q6H PRN PRN Reason: Pain, Mild (Pain Scale 1-3) Allopurinol (Allopurinol 100 Mg Tablet) 100 mg PO BEDTIME [facility] Atorvastatin Calcium (Atorvastatin Calcium 80 Mg Tablet) 80 mg PO DAILY@1800 [facility] Bumetanide (Bumetanide 1 Mg/4 Ml Vial) 2 mg IVPUSH BID@0900,1700 [facility]; Protocol Carvedilol (Carvedilol 3.125 Mg Tablet) 3.125 mg PO BID [facility]; Protocol Docusate Sodium (Docusate Sodium 100 Mg Capsule) 100 mg PO DAILY PRN PRN Reason: Constipation Gabapentin (Gabapentin 100 Mg Capsule) 100 mg PO BEDTIME [facility] Ondansetron HCl (Ondansetron Hcl 4 Mg/2 Ml Vial) 4 mg IVPUSH Q8H PRN PRN Reason: Nausea and Vomiting Ropinirole HCl (Ropinirole Hcl 0.25 Mg Tablet) 0.25 mg PO BID@1200,2100 [facility] Last Admin: 09/06/23 12:55 Dose: 0.25 mg Senna (Sennosides 8.6 Mg Tablet) 17.2 mg PO BEDTIME [facility] Last Admin: 09/05/23 23:26 Dose: Not Given Sodium Chloride (0.9 % Sodium Chloride Flush 3 Ml Syringe) 3 ml IVFLUSH QSHIFT [facility] Last Admin: 09/06/23 09:11 Dose: 3 ml Tamsulosin HCl (Tamsulosin Hcl 0.4 Mg Capsule) 0.4 mg PO BEDTIME [facility] Home Medications ?Medication ?Instructions ?Recorded ?Confirmed ?Last Taken ?Type multivitamin 1 tab PO DAILY 04/12/20 09/06/23 09/05/23 History meclizine 25 mg tablet 25 mg PO TID PRN Dizziness 01/09/23 09/06/23 09/05/23 History atorvastatin 80 mg tablet 80 mg PO DAILY@1800 07/07/23 09/06/23 07/07/23 History allopurinol 100 mg tablet 100 mg PO BEDTIME 09/06/23 09/06/23 Unknown History bumetanide 2 mg tablet 2 mg PO BID@0800,1200 09/06/23 09/06/23 09/05/23 History glimepiride 4 mg tablet 4 mg PO DAILY@1200 09/06/23 09/06/23 Unknown History ropinirole 0.25 mg tablet 0.25 mg PO BID@1200,2100 09/06/23 09/06/23 09/05/23 History sitagliptin phosphate 50 mg tablet 50 mg PO DAILY@1800 09/06/23 09/06/23 09/05/23 History (Ligia) Physical Exam 2 Vital Signs: Vital Signs: Last Vital Signs Temp 98.0 F 09/06/23 12:33 Pulse 71 09/06/23 12:55 Resp 24 H 09/06/23 12:55 BP 91/39 L 09/06/23 12:55 Pulse Ox 93 09/06/23 12:33 O2 Del Method Nasal Cannula 09/06/23 12:33 O2 Flow Rate 2 09/06/23 12:33 Oxygen Flow Rate 2 09/05/23 20:22 BMI result Body Mass Index 25.4 Const: General: no acute distress and well developed O rientation/consciousness: patient oriented x3 HEENT: Head: Yes normocephalic and Yes atraumatic Eyes: Conjunctivae: conjunctivae normal Neck: Neck: Yes normal visual inspection Chest: Chest palpation & inspection: normal inspection of the chest Resp: Effort & Inspection: normal respiratory effort Cardio: Rate: regular rate GI: Inspection: Yes normal to inspection Palpation (GI): Soft to palpation : Other: frederick in place Penis: normal penis Scrotum: scrotum normal Neuro: General: patient oriented x3 Psych: Appearance: grossly normal Affect: normal affect Results Labs 09/10/23 21:07 09/10/23 21:07 Labs: Abnormal lab results 09/05/23 09/05/23 09/06/23 Range/Units 20:32 20:35 01:54 RBC 3.57 L (4.60-5.80) X10*6/uL Hgb 10.8 L (14.0-18.0) g/dl Hct 33.0 L (42.0-52.0) % RDW 17.1 H (11.0-16.0) % Immature Gran % (Auto) 0.6 H (0.0-0.4) % Neut % (Auto) 79.5 H (45-73) % Lymph % (Auto) 5.3 L (20-40) % Duval % (Auto) 13.4 H (2-11) % Lymph # (Auto) 0.4 L (1.2-4.9) X10*3/uL Abs Immat Gran (auto) 0.05 H (0.00-0.03) X10*3/uL PT 19.4 H (11.1-13.3) SEC INR 1.6 H (0.9-1.1) APTT 50.2 H (26.0-36.8) SEC VBG pH 7.47 H (7.32-7.43) VBG HCO3 36 H (22-26) mmol/L Potassium (3.3-5.1) mmol/L Chloride 92 L (96-108) mmol/L Carbon Dioxide 31 H (22-29) mmol/L BUN 61 H (9-16) mg/dL Creatinine 3.93 H (0.5-1.4) mg/dL Random Glucose 237 H (60-115) mg/dL Calcium 10.7 H D (8.4-10.2) mg/dL Total Bilirubin 3.3 H (0.0-1.0) mg/dL Direct Bilirubin (0.0-0.5) mg/dL GGT 1029 H (11-51) U/L AST 151 H (5-37) U/L ALT 88 H (0-40) U/L Alkaline Phosphatase 755 H (39-117) U/L Troponin I High Sens 54.2 H D (<3.5-35.0) ng/L B-Natriuretic Peptide 1402 H (<100) pg/mL Total Protein 8.4 H (6.5-8.0) g/dL Albumin 3.3 L (3.5-5.0) g/dL Urine Protein 100 (2+) H (Neg-Trace) mg/dL Urine Blood Moderate (2+) H (Negative) 09/06/23 09/06/23 09/06/23 Range/Units 02:08 04:49 04:50 RBC 3.30 L (4.60-5.80) X10*6/uL Hgb 9.9 L (14.0-18.0) g/dl Hct 30.1 L (42.0-52.0) % RDW 17.1 H (11.0-16.0) % Immature Gran % (Auto) (0.0-0.4) % Neut % (Auto) 81.1 H (45-73) % Lymph % (Auto) 4.6 L (20-40) % Duval % (Auto) 12.7 H (2-11) % Lymph # (Auto) 0.4 L (1.2-4.9) X10*3/uL Abs Immat Gran (auto) 0.04 H (0.00-0.03) X10*3/uL PT (11.1-13.3) SEC INR (0.9-1.1) APTT (26.0-36.8) SEC VBG pH (7.32-7.43) VBG HCO3 (22-26) mmol/L Potassium 2.9 L* (3.3-5.1) mmol/L Chloride 93 L (96-108) mmol/L Carbon Dioxide (22-29) mmol/L BUN 61 H (9-16) mg/dL Creatinine 4.01 H* (0.5-1.4) mg/dL Random Glucose (60-115) mg/dL Calcium (8.4-10.2) mg/dL Total Bilirubin 3.1 H (0.0-1.0) mg/dL Direct Bilirubin 2.0 H (0.0-0.5) mg/dL GGT (11-51) U/L AST 143 H (5-37) U/L ALT 79 H (0-40) U/L Alkaline Phosphatase 677 H (39-117) U/L Troponin I High Sens 69.4 H (<3.5-35.0) ng/L B-Natriuretic Peptide 1332 H (<100) pg/mL Total Protein (6.5-8.0) g/dL Albumin 3.0 L (3.5-5.0) g/dL Urine Protein (Neg-Trace) mg/dL Urine Blood (Negative) Short CBC 09/05/23 09/06/23 Range/Units 20:32 04:50 WBC 8.3 9.3 (4.8-10.8) X10*3/uL Hgb 10.8 L 9.9 L (14.0-18.0) g/dl Hct 33.0 L 30.1 L (42.0-52.0) % Plt Count 169 164 (160-400) X10*3/uL BMP 09/05/23 09/06/23 20:32 04:50 Sodium 137 137 Potassium 3.6 2.9 L* Chloride 92 L 93 L Carbon Dioxide 31 H 29 BUN 61 H 61 H Creatinine 3.93 H 4.01 H* Calcium 10.7 H D 9.8 D Liver Function 09/05/23 09/06/23 Range/Units 20:32 04:50 Total Bilirubin 3.3 H 3.1 H (0.0-1.0) mg/dL Direct Bilirubin 2.0 H (0.0-0.5) mg/dL GGT 1029 H (11-51) U/L AST 151 H 143 H (5-37) U/L ALT 88 H 79 H (0-40) U/L Alkaline Phosphatase 755 H 677 H (39-117) U/L Albumin 3.3 L 3.0 L (3.5-5.0) g/dL Urine 09/06/23 Range/Units 01:54 Urine Color Yellow Urine Appearance Clear Urine pH 5.5 (5.0-9.0) Ur Specific [place] 1.010 (1.005-1.025) Urine Protein 100 (2+) H (Neg-Trace) mg/dL Urine Glucose (UA) Negative (Negative) mg/dL Imaging Additional studies: Date of Service: 09/06/23 EXAMINATION: CT chest wo IV con, CT abdomen pelvis wo IV con CLINICAL INFORMATION: Reason for Exam ?metastasis COMPARISON: Abdominal ultrasound 09/05/2023 chest radiograph 09/05/2023. CT lumbar spine 10/22/2016. CT abdomen pelvis 10/22/2016. CT angiography chest 10/27/2011 TECHNIQUE: Unenhanced CT of the chest, abdomen and pelvis Intravenous Contrast: None This CT examination was performed using dose optimization techniques as appropriate, variously including the following: *Automated exposure control *Adjustment of mA and/or kV according to patient size (this includes techniques or standardized protocols for targeted exams where dose is matched to indication/reason for exam; i.e. extremities or head) *Use of iterative reconstruction technique DLP: 1075 mGy-cm FINDINGS: Lungs and pleura: A 2.5 cm x 1.6 cm x 1.7 cm (lateral X AP X SI) nodule is present within the posterior segment of the right upper pulmonary lobe abutting the minor fissures. Smooth intralobular septal thickening is present within the right upper pulmonary lobe asymmetrically prominent relative to the remainder of the lungs. Bilateral mild subpleural medium and fine reticular opacities and areas of minimal associated traction bronchiectasis are noted. A 1.4 cm x 1.1 cm x 1.1 cm subpleural nodules present in the right lower pulmonary lobe (series 6 image 30). Attenuation of the upper lung zone pulmonary parenchyma suspicious for mild-moderate centrilobular emphysema noted. Mediastinum: Marked right paratracheal, right hilar and subcarinal lymphadenopathy is present with lymph nodes demonstrating short axis diameters up to 2 cm. A subcarinal lymph node measures 2 cm in maximum short axis diameter and exhibits associated dystrophic punctate calcifications. The remaining areas of lymphadenopathy demonstrate no dystrophic calcification. No supraclavicular lymphadenopathy identified. A single left hilar lymph node measures 1.6 cm in diameter, above normal limits of size. Marked diffuse calcific atherosclerosis of the thoracic aorta is noted. Marked diffuse coronary artery calcific atherosclerosis identified. A left pectoral AICD pacer is identified. No pericardial thickening or fluid collections noted. The right atrium appears qualitatively enlarged. CHEST WALL: Left pectoral generator. No axillary lymphadenopathy. Liver: A vague 3 cm diameter low density focus is present in segment 7 of the liver. A vague 4 cm diameter low-density lesion is present in segment 8 of the liver. These findings correspond to lesions identified to better advantage on the comparison ultrasound. Additional borderline vague low density smaller rounded lesions are noted within the liver and correspond to findings noted to better advantage on the comparison ultrasound. Biliary system: Cholecystectomy clips are noted. No biliary duct dilatation visualized. Pancreas: Normal. Spleen: Normal. Adrenal glands: Normal. Kidneys: Mild diffuse bilateral renal atrophy. 2 cm diameter rounded low-density focus within the interpolar segment of the right kidney most consistent with a benign, simple cyst requiring no additional imaging follow-up. Single punctate dystrophic calcification within the lateral aspect of the right kidney. A 2.5 cm diameter rounded low-density focus is present medially within the interpolar segment left kidney most consistent with a benign, simple cyst requiring no additional imaging follow-up. An exophytic 4 cm diameter rounded low-density focus is present with the inferior pole the right kidney is most consistent with benign, simple cyst requiring no additional imaging follow-up is 5 mm intermediate density (24 Hounsfield unit) focus is present along the anterior medial aspect of the superior pole the right kidney (series 11 image 36) this is an indeterminate finding which may represent a proteinaceous cyst or solid renal lesion. Urinary bladder: Frederick catheter resides within the lumen of the urinary bladder which is mostly decompressed. Dependent intraluminal gas is present within the lumen of the urinary bladder likely related to the Frederick catheter. No suspicious urinary bladder wall thickening. Gastrointestinal system: Moderate sigmoid diverticulosis. Normal appendix. Normal terminal ileum. The middle segment of the sigmoid colon over a 4.5 cm length demonstrates a collapsed appearance with either coapted normal bowel wall or possible concentric bowel wall thickening to a width of 1.2 cm (series 11 image 69, series 15 image 38) no small bowel dilatation or mural thickening noted. No free intraperitoneal fluid or gas collections. Normal stomach and duodenum. Abdominal and pelvic vascular structures: Marked diffuse calcific atherosclerosis. A fusiform aneurysm of the abdominal aorta measures up to 3.6 cm in diameter. Focal ulceration with associated dense mural calcification is present within the proximal segment of the aneurysm measuring approximately 7 mm in depth. The aneurysm originates 2.5 cm inferior to the origin of the renal arteries. The common iliac arteries are normal in caliber. Dense vascular calcifications are present in the iliac system including calcifications suspicious for possible ulcerative plaques within the left and right common iliac arteries.s Abdominal lymph nodes: No abdominal lymphadenopathy identified. Abdominal wall: 1.5 cm periumbilical hernia containing omental fat without associated inflammatory changes is visualized. Pelvic viscera: The prostate is diffusely enlarged measuring 5 cm in diameter. Osseous structures: No suspicious skeletal lesions identified. A 1.5 cm densely sclerotic well-circumscribed focus is present in L3 vertebral body and has the appearance of an enostosis. Multilevel chronic appearing thoracolumbar spondylosis is present including prominent intervertebral disc space narrowing L3-L4 and L4-L5 and L5-S1. Multilevel anterior endplate osteophytosis of the thoracic spine is visualized. Multiple median sternotomy wires identified. IMPRESSION: Unenhanced CT of the chest, abdomen pelvis: 1. Findings suspicious for primary bronchogenic neoplasm with bilateral mediastinal lymphadenopathy and hepatic metastatic disease. A 2.5 cm right upper lobe nodule suspicious for neoplasm is present in association with bulky right paratracheal, right hilar and subcarinal lymphadenopathy and a single abnormal enlarged left hilar lymph node. Additionally, an indeterminate 1.4 cm nodule is present in the right lower pulmonary lobe and may represent a satellite lesion. Findings are present in the setting of mild-moderate centrilobular emphysema. Multiple hepatic lesions measuring up to 4 cm in diameter are present and are suspicious for metastatic disease. No skeletal metastatic disease identified. Smooth intralobular septal thickening is present in the right upper lobe and may represent asymmetric pulmonary edema or possible lymphangitic spread of tumor related to the 2.5 cm nodule noted above. 2. 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 3. Indeterminate 5 mm intermediate density lesion within the anteromedial aspect of the superior pole the right kidney (series 11 image 36) which may represent a proteinaceous cyst or solid parenchymal lesion. Recommend follow-up on the basis of oncologic imaging protocol in the setting of the above identified findings suspicious for bronchogenic neoplasm. 4. Borderline concentric mural thickening of the middle segment of the sigmoid colon over a 4.5 cm length with possible mural thickening up to 1.2 cm in diameter. Findings are most suspicious for physiologic contraction of the sigmoid colon in the setting of moderate sigmoid diverticulosis. The differential diagnosis includes a concentric mural tumor within the sigmoid colon. However, findings are most suspicious for benign mural thickening and physiologic coaptation of the sigmoid colon. Findings could be further evaluated with sigmoidoscopy or contrast fluoroscopy as clinically indicated. No evidence of active diverticulitis. 5. Abdominal aortic aneurysm measuring 3.6 cm in diameter and associated chronic ulceration as detailed above. Based on published guidelines in J Am Domingo Radiol 2013; 10(10):789-794 and J Vasc Surg. 2018; 67:2-77, the recommendation for an abdominal aortic aneurysm with diameter 3.5-3.9 cm is follow-up every 2 years. 5. Marked diffuse calcific atherosclerosis and marked diffuse coronary artery calcific atherosclerosis. Assessment and Plan (1) BPH w urinary obs/LUTS: Status: Acute (2) Gross hematuria: Status: Acute (3) Anticoagulant long-term use: Status: Acute Plan Gross hematuria likely traumatic related to catheter placement and pt is on plavix Cont frederick while strict I's and O's needed Cont tamsulosin, Recommend start proscar 5 mg daily D/C frederick prior to discharge FU with Urology in 2-3 wks after discharge Procedures Date of Service Date of Service: 09/30/23
[2023-09-06] MEDS: Atorvastatin Calcium 80 MG TABLET PO (19:33)
[2023-09-06] MEDS: Tamsulosin HCL 0.4 MG CAPSULE PO (21:08)
[2023-09-06] MEDS: carvediloL 3.125 MG TABLET PO (21:09)
[2023-09-06] MEDS: Sennosides 8.6 MG TABLET 17.2 MG PO (21:09)
[2023-09-06] MEDS: Acetaminophen 325 MG TABLET 650 MG PO (21:09)
[2023-09-06] MEDS: allopurinoL 100 MG TABLET PO (21:09)
[2023-09-06 21:32] LABS: Glucose, Whole Blood 173 mg/dL (60-115)
--- NOTE | 2023-09-07 02:45 | PC.NURSE ---
3-way 22 frederick for CBI placed at this time using sterile technique.
[2023-09-07 04:00] VITALS: BP 105/56; PULSE 69; RESP 16; TEMP 36.6; O2SAT 98
[2023-09-07 05:55] VITALS: BMI 25.7
[2023-09-07 06:46] LABS: Hematocrit 28.4 % (42.0-52.0); Hemoglobin 9.4 g/dl (14.0-18.0); Mean Corpuscular HGB Conc 33.1 g/dl (31.0-36.0); Mean Corpuscular Hemoglobin 30.2 pg (27.0-33.0); Mean Corpuscular Volume 91.3 fL (80.0-98.0); Mean Platelet Volume 11.3 fL (9.4-12.4); Platelet Count 141 X10*3/uL (160-400); Red Blood Count 3.11 X10*6/uL (4.60-5.80); Red Cell Distribution Width 17.2 % (11.0-16.0); White Blood Count 8.4 X10*3/uL (4.8-10.8)
[2023-09-07 07:03] LABS: Anion Gap 16 (12-20); Blood Urea Nitrogen 75 mg/dL (9-16); Calcium 9.8 mg/dL (8.4-10.2); Carbon Dioxide 29 mmol/L (22-29); Chloride 95 mmol/L (96-108); Creatinine Clr Calc Pharmacy 10.1; Estimated Glomerular Filt Rate 11; Potassium 3.7 mmol/L (3.3-5.1); Sodium 136 mmol/L (135-145)
[2023-09-07 07:07] VITALS: BP 108/52; PULSE 71; RESP 22; TEMP 36.2; O2SAT 96
[2023-09-07 07:07] LABS: Glucose Fasting 58 mg/dL (60-99)
[2023-09-07 07:36] LABS: Glucose, Whole Blood 44 mg/dL (60-115)
[2023-09-07 08:02] LABS: Glucose, Whole Blood 59 mg/dL (60-115)
[2023-09-07 08:28] LABS: Glucose, Whole Blood 79 mg/dL (60-115)
--- NOTE | 2023-09-07 08:45 | HO.WOUND ---
Wound Consult: Initial 83yr old? M admitted to [facility] [place] 09/05/23 - See progress notes and H&P for detailed history.? Wound consult placed for Coccyx wound POA.? Patient agreeable to assessment and photo documentation.? Patient reports he recently had surgery at [facility] and due to that he was in bed much more often than normal He reports it was previously open and he was using cream. Informed currently closed and tissue is intact and darkly pigmented. We discussed Turning and repositioning every 2 hours and when in a recliner chair to use a waffle cushion. He reports understanding and is agreeable to foam application. Sacrum / Coccyx Etiology: Deep Tissue Injury??Present on Admission Measurements 5cm x 3.5cm x 0cm Wound Bed: intact dark maroon red nonblanchable tissue noted Drainage / Odor: None noted Edges: ? Irregular Nicole wound: Intact - no erythema no Induration, Fluctuance or Warmth noted Pain: pt reports increase comfort over the past week Goals of Treatment: ? Foam dressing to protect from friction and moisture and aid in off loading pressure Recommendations: 1. Turn and Reposition every 2 hours and as needed for patient comfort.? Use pillows or wedges to support off loading positions. 2. Off Load all bony prominences with use of pillows and heel boots if needed.? Apply Preventative foams where needed. ? 3. Monitor for incontinence and moisture control, use barrier creams when needed for prevention and treatment. 4. Provide adequate and supplemental nutrition.? 5. Continue low air loss mattress. 6. Sacrum and Coccyx - Routine cleansing dry well. Cover sacral area with foam dressing, peel back and assess Q shift change every 3 days. Ensure waffle cushion is in use when up to recliner chair. Re-consult wound care Nurse for wound deterioration or wound changes.
--- NOTE | 2023-09-07 09:15 | P.PNIM_ITS ---
Subjective Subjective Date of Service: 09/07/23 Interval History: sob a bit better Constitutional Constitutional: Reports weight loss (60lbs over 2 years) Physical Exam 2 Vital Signs: Vital Signs: Last Vital Signs Temp 97.1 F 09/07/23 07:07 Pulse 71 09/07/23 07:07 Resp 22 H 09/07/23 07:07 BP 108/52 L 09/07/23 07:07 Pulse Ox 96 09/07/23 07:07 O2 Del Method Nasal Cannula 09/07/23 07:07 O2 Flow Rate 2 09/07/23 07:07 Oxygen Flow Rate 2 09/05/23 20:22 BMI result Body Mass Index 25.7 General: AO X 3, no acute distress Resp: Crackles bilateral, no accessory muscles used CVS: S1,S2,RRR GI: soft, non tender, non distended Neuro: motor grossly intact, alert Psych: appropriate affect, appropriate insight Objective Data Active Medications Acetaminophen (Acetaminophen 325 Mg Tablet) 650 mg PO Q6H PRN PRN Reason: Pain, Mild (Pain Scale 1-3) Last Admin: 09/06/23 21:09 Dose: 650 mg Documented By: ROSSY Allopurinol (Allopurinol 100 Mg Tablet) 100 mg PO BEDTIME [facility] Last Admin: 09/06/23 21:09 Dose: 100 mg Documented By: ROSSY Atorvastatin Calcium (Atorvastatin Calcium 80 Mg Tablet) 80 mg PO DAILY@1800 [facility] Last Admin: 09/06/23 19:33 Dose: 80 mg Documented By: CRIS Bumetanide (Bumetanide 1 Mg/4 Ml Vial) 2 mg IVPUSH BID@0900,1700 [facility]; Protocol Carvedilol (Carvedilol 3.125 Mg Tablet) 3.125 mg PO BID [facility]; Protocol Last Admin: 09/06/23 21:09 Dose: 3.125 mg Documented By: ROSSY Dextrose (Dextrose 50 % 25 Gm/50 Ml Syringe) 25 gm IVPUSH Q15M PRN; Protocol PRN Reason: per Hypoglycemia Standing Ord. Docusate Sodium (Docusate Sodium 100 Mg Capsule) 100 mg PO DAILY PRN PRN Reason: Constipation Gabapentin (Gabapentin 100 Mg Capsule) 100 mg PO BEDTIME [facility] Last Admin: 09/06/23 21:08 Dose: 100 mg Documented By: ROSSY Glucose (Glucose Gel 15 Gm Gel..Gram.) 15 gm PO Q15M PRN; Protocol PRN Reason: per Hypoglycemia Standing Ord. Insulin Human Lispro (Insulin Lispro 100 Unit/Ml 3 Ml Vial) 0 unit SUBCUT QIDACHS [facility]; Protocol Last Admin: 09/07/23 08:02 Dose: Not Given Documented By: NINI Non-Admin Reason: See Note Ondansetron HCl (Ondansetron Hcl 4 Mg/2 Ml Vial) 4 mg IVPUSH Q8H PRN PRN Reason: Nausea and Vomiting Ropinirole HCl (Ropinirole Hcl 0.25 Mg Tablet) 0.25 mg PO BID@1200,2100 [facility] Last Admin: 09/06/23 21:09 Dose: 0.25 mg Documented By: ROSSY Senna (Sennosides 8.6 Mg Tablet) 17.2 mg PO BEDTIME [facility] Last Admin: 09/06/23 21:09 Dose: 17.2 mg Documented By: ROSSY Sodium Chloride (0.9 % Sodium Chloride Flush 3 Ml Syringe) [facility] Last Admin: 09/07/23 08:02 Dose: Not Given Documented By: NINI Non-Admin Reason: See Note Tamsulosin HCl (Tamsulosin Hcl 0.4 Mg Capsule) 0.4 mg PO BEDTIME [facility] Last Admin: 09/06/23 21:08 Dose: 0.4 mg Documented By: ROSSY Tizanidine HCl (Tizanidine Hcl 4 Mg Tablet) 4 mg PO TID PRN PRN Reason: Spasms Last Admin: 09/06/23 19:33 Dose: 4 mg Documented By: CRIS Labs 09/07/23 06:16 09/07/23 06:16 Labs: Laboratory Results - last 24 hr 09/06/23 09/07/23 09/07/23 21:11 06:16 07:09 MCV 91.3 MCH 30.2 MCHC 33.1 RDW 17.2 H Plt Count 141 L MPV 11.3 Absolute Nucleated RBC 0.000 Nucleated RBC % (auto) 0.0 Anion Gap 16 Estim Creat Clear Calc 10.1 Estimated GFR 11 POC Glucose 173 H 44 L* Fasting Glucose 58 L* Calcium 9.8 03/15/24 03/15/24 07:55 08:24 MCV MCH MCHC RDW Plt Count MPV Absolute Nucleated RBC Nucleated RBC % (auto) Anion Gap Estim Creat Clear Calc Estimated GFR POC Glucose 59 L* 79 Fasting Glucose Calcium Assessment and Plan (1) Chest pain: Status: Acute Plan 83M PMH type 2 diabetes, GERD, hyperlipidemia, aortic aneurysm, heart failure reduced ejection fraction, coronary artery disease s/p CABG, CKD stage 4, TIA, chronic atrial fibrillation on Xarelto with biventricular ICD in place presented with chest pain and sob, found to be in chf, mark on ckd iv, and noted to have new finding of liver mets, hematuria. acute hypoxic respiratory failure due to acute on chronic systolic and right sided chf now on room air continue iv bumex, echo with ef 25-30%, rv dysfunction cardio following MARK on CKD IV cardiorenal, nephro eval chest pain doubt acs, troponin flat new finding of liver metasteses with weight loss and suspicious lung nodule suspect primary lung cancer with liver mets biopsy of liver met outpatient oncology eval hematuria holding xarelto hematuria improved on cbi chronic afib holding xarelto for biopsy and hematuria coreg DM insulin bph flomax dvt prophylaxis - mechanical due to hematuria full code reason for continued hospitalization:worsening renal funciton, iv diuresis Quality Stroke Does the patient have a stroke diagnosis?: No VTE Prior VTE?: No VTE Risk Level:: Medical - moderate - high VTE Device Contraindication: Treatment Not Indicated VTE Drug Contraindication: N/A - Med Ordered
--- NOTE | 2023-09-07 09:18 | PC.NURSE ---
informed md of low bp and pt's bp hx and meds ordered for this am. per md hold cortney
[2023-09-07] MEDS: carvediloL 3.125 MG TABLET PO ×2 (09:21→21:48)
[2023-09-07 11:06] VITALS: BP 94/58; PULSE 71; RESP 22; TEMP 36.1; O2SAT 100
[2023-09-07 11:15] LABS: Glucose, Whole Blood 181 mg/dL (60-115)
--- NOTE | 2023-09-07 11:34 | MHC.CM.PN ---
Addendum entered by Chiqui Graham 09/07/23 11:35: A CBI has been started for Hematuria. Patient continues on IV diuretics. DP home self care with family transport. Discharge plan may change dependent Original Note: Per MD rounds no discharge today. A CBI
[2023-09-07] MEDS: rOPINIRole HCL 0.25 MG TABLET PO ×2 (11:39→21:47)
[2023-09-07] MEDS: Insulin Lispro 100 UNIT/ML 3 ML VIAL SUBCUT ×2 (11:39→16:38)
--- NOTE | 2023-09-07 11:52 | P.PNCA_ITS ---
Subjective Subjective Date of Service: 09/07/23 Principal diagnosis: Acute kidney injury, congestive heart failure, hematuria Interval history: Patient has worsening renal function question related to poor renal perfusion from low blood pressure, over-diuresis worse is urinary retention. Patient says breathing is better. He denies any palpitations. Overnight developed hematuria again is currently getting CBI. Review of Systems Constitutional: Reports lethargy Eyes: Reports no additional eye complaints Cardiovascular: Reports no additional cardiovascular complaints Genitourinary: Reports hematuria Musculoskeletal: Reports no additional musculoskeletal complaints Reports system reviewed and no additional complaints, except as documented Physical Exam Vital Signs: Last Vital Signs Temp 96.9 F 09/07/23 11:06 Pulse 71 09/07/23 11:06 Resp 22 H 09/07/23 11:06 BP 94/58 L 09/07/23 11:06 Pulse Ox 100 09/07/23 11:06 O2 Del Method Nasal Cannula 09/07/23 11:06 O2 Flow Rate 2 09/07/23 11:06 Oxygen Flow Rate 2 09/05/23 20:22 BMI result Body Mass Index 25.7 Const General: cooperative, comfortable, alert and awake Nutritional Appearance: cachectic Orientation/consciousness: patient oriented x3 HEENT Head: Yes normocephalic and Yes atraumatic Neck Neck: Yes trachea midline, Yes supple and Yes JVD Resp Effort & Inspection: normal respiratory effort Auscultation: crackles Cardio Jugular venous distension: JVD Palpation: abnormal PMI displaced PMI Rate: regular rate Rhythm: regular rhythm Heart sounds: S1 normal heart sound present, S2 normal heart sound present, no click, no gallops and no rubs GI Auscultation: normal bowel sounds Skin General skin exam: no rashes or lesions noted Neuro General: patient oriented x3 and no focal motor deficits Extrem General: No clubbing, No cyanosis and Yes edema Objective Labs and Meds 09/07/23 06:16 09/07/23 06:16 Lab results: Laboratory Results - last 24 hr 09/06/23 09/07/23 09/07/23 21:11 06:16 07:09 WBC 8.4 RBC 3.11 L Hgb 9.4 L Hct 28.4 L MCV 91.3 MCH 30.2 MCHC 33.1 RDW 17.2 H Plt Count 141 L MPV 11.3 Absolute Nucleated RBC 0.000 Nucleated RBC % (auto) 0.0 Sodium 136 Potassium 3.7 D Chloride 95 L Carbon Dioxide 29 Anion Gap 16 BUN 75 H Creatinine 5.16 H* Estim Creat Clear Calc 10.1 Estimated GFR 11 POC Glucose 173 H 44 L* Fasting Glucose 58 L* Calcium 9.8 09/07/23 09/07/23 09/07/23 07:55 08:24 11:02 WBC RBC Hgb Hct MCV MCH MCHC RDW Plt Count MPV Absolute Nucleated RBC Nucleated RBC % (auto) Sodium Potassium Chloride Carbon Dioxide Anion Gap BUN Creatinine Estim Creat Clear Calc Estimated GFR POC Glucose 59 L* 79 181 H Fasting Glucose Calcium Progress Note: A&P Assessment and plan (1) CHF exacerbation: Status: Acute Assessment and Plan: Patient admitted with CHF exacerbation with now multiple comorbidities including metastatic disease to the liver, acute kidney injury, chronic atrial fibrillation with hematuria, low blood pressure. Overall prognosis is guarded although patient wants to continue pursue aggressive workup if required treatment. I would hold off on any further diuresis at this point in time given his acute kidney injury and clinically he is seeming to have improved with his breathing. Continue monitor closely for development of heart failure syndrome. Continue carvedilol therapy. Hydralazine will probably need to be held given his low blood pressure to allow for adequate renal perfusion. His [employer] INS[employer] device on yesterday's interrogation seems to be working adequately. (2) Chronic atrial fibrillation: Status: Acute Assessment and Plan: Chronic atrial fibrillation, rate controlled. Continue carvedilol therapy. Currently Xarelto on hold due to hematuria. Resume as soon as possible once Neurology clears. Will follow with you Time Spent With Patient Time: Total time managing care of this patient today ____ minutes. Progress Note: Quality Stroke Does the patient have a stroke diagnosis?: No Procedures Date of Service Date of Service: 09/07/23
--- NOTE | 2023-09-07 12:57 | P.CDIM_ITS ---
PROVIDER RESPONSE TEXT: To clarify, the appropriate diagnosis supported by the clinical indicators: deep tissue injury sacrum/coccyx, POA QUERY TEXT: PHYSICIAN'S DOCUMENTATION REQUEST Date of Query: 09/07/2023 12:48 PM EDT Patient Name: Ethan Macias Admit Date: 09/06/2023 Dear Giovanni Martinez, A review of the medical record indicates additional documentation may be needed. Please review below and update the documentation accordingly. Clinical Indicators: Per Wound Consult 09/07/23: Sacrum / Coccyx Etiology: Deep Tissue Injury Present on Admission Foam dressing to protect from friction and moisture and aid in off loading pressure Based on the above, could you clarify the appropriate diagnosis, if significant, that supports the ab ove abnormalities and additional evaluation, monitoring, and/or treatment rendered: deep tissue injury sacrum/coccyx, POA Other (explain) Clinically unable to determine (explain) Thank you, Lianna Bartlett RN Use of terms such as suspected, likely, concern for, or probable (associated with a specific diagnosi s that is being evaluated, monitored, or treated as if it exists) are acceptable and can be coded in the inpatient se tting, when documented at the time of discharge. Please use your independent medical judgment in providing your response. THIS QUERY IS PART OF THE PERMANENT MEDICAL RECORD
--- NOTE | 2023-09-07 13:25 | P.CNHO_ITS ---
Subjective - Subjective Chief complaint: Shortness of breath Patient: new to practice Consult date: 09/07/23 Primary Care Provider: Kishan Paez MD HPI - Consult Narrative Reason for consult: Probable liver metastasis Narrative: Ethan Macias is a 83 year old male with history of coronary artery disease, status post CABG, atrial fibrillation, chronic stage 4 kidney disease and type 2 diabetes mellitus who is currently admitted for congestive heart failure. He was experiencing shortness of breath and leg swelling workup in the ED revealed hypoxia and chest x-ray showed patchy bilateral opacities. He was noted to have elevated liver function tests and therefore ultrasound abdomen was ordered which revealed enlarged liver with multiple solid masses consistent with metastasis. CT chest revealed right lung mass worrisome for primary malignancy. Patient is an ex-smoker, having quit in 1985. He does not endorse any chronic underlying lung problems. He does say that he lost almost 30- 40 lb in the last couple of years which he attributes to poor appetite but also being on diuretics on and off. Other than shortness of breath he denies any worsening cough or hemoptysis. Was never diagnosed with any cancer before. He denies any exposure to toxins or chemicals at work. Review of Systems - Constitutional Reports as per HPI, Reports fatigue, Reports malaise, Reports weight loss - Cardiovascular Reports no additional cardiovascular complaints - Respiratory Reports no additional respiratory complaints - Gastrointestinal Reports no additional gastrointestinal complaints - Neurologic Reports no additional neurologic complaints, Denies syncope, Reports weakness PMFSH Medical History: Medical History (Last Reviewed 09/06/23 @ 11:22 by Chevy Montanez MD) Acute on chronic systolic (congestive) heart failure Aortic aneurysm Biventricular ICD (implantable cardioverter-defibrillator) in place CAD (coronary artery disease) Chronic atrial fibrillation Chronic kidney disease (CKD) stage G3b/A1, moderately decreased glomerular filtration rate (GFR) between 30-44 mL/min/1.73 square meter and albuminuria creatinine ratio less than 30 mg/g Congestive heart failure Congestive heart failure GERD (gastroesophageal reflux disease) Gout Heart failure with reduced ejection fraction History of GI bleed Hospital discharge follow-up Hypercholesterolemia Hypertension Ischemic cardiomyopathy Obesity (BMI 30-39.9) TIA (transient ischemic attack) Type 2 diabetes mellitus with hyperglycemia Family History: Family History (Last Reviewed 09/06/23 @ 11:22 by Chevy Montanez MD) Father CVD (cardiovascular disease) Hypertension Mother Cancer Surgical History: Surgical History (Last Reviewed 09/06/23 @ 11:22 by Chevy Montanez MD) Coronary artery disease involving coronary bypass graft History of cardiac defibrillator placement History of cholecystectomy Social History: Social History (Last Reviewed 09/06/23 @ 11:22 by Chevy Montanez MD) Living Situation History: Household Members: Family Household Members: Children Household Members Other:: 3 Housing: Apartment Do you presently have visiting nurse or other home services: No Tobacco History: Patient Tobacco Use Status: Former Tobacco user Years Smoked: quit 1985 Smoke Quit Date: 1985 e-Cigarette/Vaping Use: Never Used Second Hand Smoke Exposure: No Advance Directives: Advance Directives Date on File: 06/19/22 Occupation Assessmet: service: Yes Current occupational status: retired Home Medications and Allergies Current Medications: Current Medications Acetaminophen (Acetaminophen 325 Mg Tablet) 650 mg PO Q6H PRN PRN Reason: Pain, Mild (Pain Scale 1-3) Last Admin: 09/06/23 21:09 Dose: 650 mg Allopurinol (Allopurinol 100 Mg Tablet) 100 mg PO BEDTIME [facility] Last Admin: 09/06/23 21:09 Dose: 100 mg Atorvastatin Calcium (Atorvastatin Calcium 80 Mg Tablet) 80 mg PO DAILY@1800 [facility] Last Admin: 09/06/23 19:33 Dose: 80 mg Carvedilol (Carvedilol 3.125 Mg Tablet) 3.125 mg PO BID [facility]; Protocol Last Admin: 09/07/23 09:21 Dose: 3.125 mg Dextrose (Dextrose 50 % 25 Gm/50 Ml Syringe) 25 gm IVPUSH Q15M PRN; Protocol PRN Reason: per Hypoglycemia Standing Ord. Docusate Sodium (Docusate Sodium 100 Mg Capsule) 100 mg PO DAILY PRN PRN Reason: Constipation Gabapentin (Gabapentin 100 Mg Capsule) 100 mg PO BEDTIME [facility] Last Admin: 09/06/23 21:08 Dose: 100 mg Glucose (Glucose Gel 15 Gm Gel..Gram.) 15 gm PO Q15M PRN; Protocol PRN Reason: per Hypoglycemia Standing Ord. Insulin Human Lispro (Insulin Lispro 100 Unit/Ml 3 Ml Vial) 0 unit SUBCUT QIDACHS [facility]; Protocol Last Admin: 09/07/23 11:39 Dose: 2 unit Ondansetron HCl (Ondansetron Hcl 4 Mg/2 Ml Vial) 4 mg IVPUSH Q8H PRN PRN Reason: Nausea and Vomiting Ropinirole HCl (Ropinirole Hcl 0.25 Mg Tablet) 0.25 mg PO BID@1200,2100 [facility] Last Admin: 09/07/23 11:39 Dose: 0.25 mg Senna (Sennosides 8.6 Mg Tablet) 17.2 mg PO BEDTIME [facility] Last Admin: 09/06/23 21:09 Dose: 17.2 mg Sodium Chloride (0.9 % Sodium Chloride Flush 3 Ml Syringe) 3 ml IVFLUSH QSHIFT [facility] Last Admin: 09/07/23 12:52 Dose: Not Given Tamsulosin HCl (Tamsulosin Hcl 0.4 Mg Capsule) 0.4 mg PO BEDTIME [facility] Last Admin: 09/06/23 21:08 Dose: 0.4 mg Tizanidine HCl (Tizanidine Hcl 4 Mg Tablet) 4 mg PO TID PRN PRN Reason: Spasms Last Admin: 09/06/23 19:33 Dose: 4 mg Home Medications Medication Instructions Recorded Confirmed Type multivitamin 1 tab PO DAILY 04/12/20 09/06/23 History meclizine 25 mg tablet 25 mg PO TID PRN Dizziness 01/09/23 09/06/23 History atorvastatin 80 mg tablet 80 mg PO DAILY@1800 07/07/23 09/06/23 History allopurinol 100 mg tablet 100 mg PO BEDTIME 09/06/23 09/06/23 History bumetanide 2 mg tablet 2 mg PO BID@0800,1200 09/06/23 09/06/23 History glimepiride 4 mg tablet 4 mg PO DAILY@1200 09/06/23 09/06/23 History ropinirole 0.25 mg tablet 0.25 mg PO BID@1200,2100 09/06/23 09/06/23 History sitagliptin phosphate 50 mg tablet 50 mg PO DAILY@1800 09/06/23 09/06/23 History (Ligia) Allergies Allergy/AdvReac Type Severity Reaction Status Date / Time dabigatran etexilate Allergy Unknown indigestion Verified 07/24/23 15:37 [Pradaxa] sacubitril [From ENTRESTO] Allergy Unknown FEELS LIKE Verified 07/24/23 15:37 HAVING A HEART ATTACK valsartan [From ENTRESTO] Allergy Unknown FEELS LIKE Verified 07/24/23 15:37 HAVING A HEART ATTACK Physical Exam Vital signs: Vital Signs Temp 96.9 F 09/07/23 11:06 Pulse 71 09/07/23 11:06 Resp 22 H 09/07/23 11:06 BP 94/58 L 09/07/23 11:06 Pulse Ox 100 09/07/23 11:06 O2 Del Method Nasal Cannula 09/07/23 11:06 O2 Flow Rate 2 09/07/23 11:06 Intake & Output 09/06/23 09/07/23 09/07/23 18:59 06:59 18:59 Intake Total 135 / 135 Output Total 480 / 1105 625 / 1105 Balance -480 / -970 -490 / -970 Urine Output (Average ml/kg/hr) 0.56 0.72 Intake: Intake, Oral Amount 460 / 460 Intake, Oral Supplement Amount 0 / 0 Intake, Tube Feeding Amount 0 / 0 Continuous Bladder Irrigation -325 / -325 Fluid - Amount Retained 3-way Urethral -325 / -325 Output: Output, Urine Amount 480 / 480 Output, Stool Amount 0 / 0 Output, Urine/Stool Mix Amount 0 / 0 Output, Urine Amount (Catheter) 625 / 625 3-way Urethral 325 / 325 Coude 300 / 300 Other: Number of Bowel Movements 0 Urine frederick Urine Color Bloody Bloody Last Bowel Movement 09/05/23 Continuous Bladder Irrigation Fluid - Amount Instilled 3-way Urethral 3,000 Continuous Bladder Irrigation Fluid - Amount Drained 3-way Urethral 3,200 Weight 72.2 kg Weight in Grams [id number] Weight 72.2 kg - Constitutional Present: no acute distress, chronically ill appearing - Routine HEENT Exam Head: Present: normal inspection Eye: Present: PERRL - Routine Neck Exam Present: supple - Routine Respiratory Exam Present: decreased breath sounds. Absent: CTAB - Routine Cardiovascular Exam Cardiovascular: Present: S1, S2 - Routine Skin Exam Present: intact Hem/Onc Consult Result - Labs CBC & Chem 7: 09/07/23 06:16 09/07/23 06:16 Labs: Short CBC 09/07/23 Range/Units 06:16 WBC 8.4 (4.8-10.8) X10*3/uL Hgb 9.4 L (14.0-18.0) g/dl Hct 28.4 L (42.0-52.0) % Plt Count 141 L (160-400) X10*3/uL BMP 09/07/23 06:16 Sodium 136 Potassium 3.7 D Chloride 95 L Carbon Dioxide 29 BUN 75 H Creatinine 5.16 H* Calcium 9.8 Assessment and Plan Patient Active problem list reviewed?: Yes (1) Metastasis to liver Status: Acute Assessment and plan: 1. This is a 83-year-old male with multiple medical problems including history of CAD, congestive heart failure, atrial fibrillation and acute on chronic renal insufficiency was noted to have liver masses suspicious for metastasis. Because of elevated liver enzymes he had an ultrasound on 09/05/2023 which revealed enlarged liver measuring 18.5 cm with multiple solid liver masses measuring 4.4 and 3.8 cm. Follow-up CT chest/abdomen and pelvis demonstrated a 2.5 x 1.6 x 1.7 cm mass in the right upper lobe of the lung, 1.4 x 1.1 cm subpleural nodule in the right lower lobe as well as marked right paratracheal, right hilar and subcarinal lymphadenopathy. Above findings suspicious for primary lung cancer with liver metastasis. For further workup have recommended a biopsy of the liver lesion. He will 1st have to come off anticoagulation. This can be scheduled as outpatient. Further workup includes staging with PET-CT and brain imaging. All of this was explained to patient and he verbalized understanding. I will be happy to see him upon discharge. I thank you for this referral. - Time Spent With Patient Time Spent with Patient (in minutes): 25
[2023-09-07 14:55] VITALS: BP 99/58; PULSE 72; RESP 22; TEMP 36.6; O2SAT 96
[2023-09-07 15:23] VITALS: BMI 25.7
--- NOTE | 2023-09-07 15:29 | MHC.CLN ---
RE: CONSULT PT WITH INCREASED NUTRITION RISK R/T PRESSURE INJURY PO INTAKE 75-100% NOTED PT WITH 7% NONSIGNIFICANT WT LOSS X 6 MONTHS. WT REMAINS OVER WT FOR HT. WT HX REVEALS 72.2KG (09/07/23) 77.4KG (01/13/23)-7% LOSS 79KG (10/06/22)-9% LOSS DIET RX: 2000DM CARDIAC-APPROPRIATE RECOMMEND ADDING ENSURE MAX BID TO PROMOTE WOUND HEALING SUPP PROVIDES 300KCALS, 60G PROTEIN WITH 100% ACCEPTANCE MONITOR PO INTAKE AND ENCOURAGE SUPPLEMENT SEE ALSO FULL CLINICAL NUTRITION ASSESSMENT
[2023-09-07 16:23] LABS: Glucose, Whole Blood 156 mg/dL (60-115)
--- NOTE | 2023-09-07 16:37 | P.CONNP_ITS ---
History of Present Illness Reason for Consult Consult date: 09/09/23 Reason for consult: DUSTIN on CKD Chief Complaint Chief complaint: CHF exacerbation, hypoxia History of Present Illness Narrative: 83-year-old male with history of [id number] type 2 diabetes, GERD, hyperlipidemia, aortic aneurysm, heart failure reduced ejection fraction, coronary artery disease s/p CABG, CKD stage 4, TIA, chronic atrial fibrillation on Xarelto with biventricular ICD in place presented to the ED earlier today for evaluation of dyspnea. He reports last night developed orthopnea, PND as well as lightheadedness and then today noted significant dyspnea on exertion. Today he has also been experiencing retrosternal chest pressure that is nonradiating. He was recently admitted for CHF exacerbation from 07/08-07/09 and discharged on Bumex and Isordil which he reports compliance with. Baseline creatinine 2.5 Bumped up to 5.1 with diuresis PMFSH Past Medical History Medical History Hospital discharge follow-up Biventricular ICD (implantable cardioverter-defibrillator) in place Congestive heart failure Chronic kidney disease (CKD) stage G3b/A1, moderately decreased glomerular filtration rate (GFR) between 30-44 mL/min/1.73 square meter and albuminuria creatinine ratio less than 30 mg/g Chronic atrial fibrillation Congestive heart failure Heart failure with reduced ejection fraction Acute on chronic systolic (congestive) heart failure CAD (coronary artery disease) Ischemic cardiomyopathy History of GI bleed Aortic aneurysm TIA (transient ischemic attack) Gout Obesity (BMI 30-39.9) GERD (gastroesophageal reflux disease) Hypercholesterolemia Type 2 diabetes mellitus with hyperglycemia Hypertension Family History Family History Father CVD (cardiovascular disease) Hypertension Mother Cancer Surgical History Surgical History History of cardiac defibrillator placement Coronary artery disease involving coronary bypass graft History of cholecystectomy Social History Social History Household Members: Family and Children Household Members Other:: 3 Housing: Apartment Do you presently have visiting nurse or other home services: No Alcohol intake: never Comment: pt refuses alarms Patient Tobacco Use Status: Former Tobacco user Quit Date: 1985 Years Smoked: quit 1985 e-Cigarette/Vaping Use: Never Used Second Hand Smoke Exposure: No Advance Directives Date on File: 06/19/22 service: Yes Current occupational status: retired Cognitive needs: No Hearing needs: No Vision needs: Yes Meds Allergies Allergy/AdvReac Type Severity Reaction Status Date / Time dabigatran etexilate Allergy Unknown indigestion Verified 07/24/23 15:37 [Pradaxa] sacubitril [From ENTRESTO] Allergy Unknown FEELS LIKE Verified 07/24/23 15:37 HAVING A HEART ATTACK valsartan [From ENTRESTO] Allergy Unknown FEELS LIKE Verified 07/24/23 15:37 HAVING A HEART ATTACK Active Medications: Current Medications Acetaminophen (Acetaminophen 325 Mg Tablet) 650 mg PO Q6H PRN PRN Reason: Pain, Mild (Pain Scale 1-3) Last Admin: 09/06/23 21:09 Dose: 650 mg Allopurinol (Allopurinol 100 Mg Tablet) 100 mg PO BEDTIME [facility] Last Admin: 09/06/23 21:09 Dose: 100 mg Atorvastatin Calcium (Atorvastatin Calcium 80 Mg Tablet) 80 mg PO DAILY@1800 [facility] Last Admin: 09/06/23 19:33 Dose: 80 mg Carvedilol (Carvedilol 3.125 Mg Tablet) 3.125 mg PO BID [facility]; Protocol Last Admin: 09/07/23 09:21 Dose: 3.125 mg Dextrose (Dextrose 50 % 25 Gm/50 Ml Syringe) 25 gm IVPUSH Q15M PRN; Protocol PRN Reason: per Hypoglycemia Standing Ord. Docusate Sodium (Docusate Sodium 100 Mg Capsule) 100 mg PO DAILY PRN PRN Reason: Constipation Gabapentin (Gabapentin 100 Mg Capsule) 100 mg PO BEDTIME [facility] Last Admin: 09/06/23 21:08 Dose: 100 mg Glucose (Glucose Gel 15 Gm Gel..Gram.) 15 gm PO Q15M PRN; Protocol PRN Reason: per Hypoglycemia Standing Ord. Insulin Human Lispro (Insulin Lispro 100 Unit/Ml 3 Ml Vial) 0 unit SUBCUT QIDACHS [facility]; Protocol Last Admin: 09/07/23 11:39 Dose: 2 unit Ondansetron HCl (Ondansetron Hcl 4 Mg/2 Ml Vial) 4 mg IVPUSH Q8H PRN PRN Reason: Nausea and Vomiting Ropinirole HCl (Ropinirole Hcl 0.25 Mg Tablet) 0.25 mg PO BID@1200,2100 [facility] Last Admin: 09/07/23 11:39 Dose: 0.25 mg Senna (Sennosides 8.6 Mg Tablet) 17.2 mg PO BEDTIME [facility] Last Admin: 09/06/23 21:09 Dose: 17.2 mg Sodium Chloride (0.9 % Sodium Chloride Flush 3 Ml Syringe) 3 ml IVFLUSH QSHIFT [facility] Last Admin: 09/07/23 12:52 Dose: Not Given Tamsulosin HCl (Tamsulosin Hcl 0.4 Mg Capsule) 0.4 mg PO BEDTIME [facility] Last Admin: 09/06/23 21:08 Dose: 0.4 mg Tizanidine HCl (Tizanidine Hcl 4 Mg Tablet) 4 mg PO TID PRN PRN Reason: Spasms Last Admin: 09/06/23 19:33 Dose: 4 mg Home Medications Medication Instructions Recorded Confirmed Last Taken Type multivitamin 1 tab PO DAILY 04/12/20 09/06/23 09/05/23 History meclizine 25 mg tablet 25 mg PO TID PRN Dizziness 01/09/23 09/06/23 09/05/23 History atorvastatin 80 mg tablet 80 mg PO DAILY@1800 07/07/23 09/06/23 07/07/23 History allopurinol 100 mg tablet 100 mg PO BEDTIME 09/06/23 09/06/23 Unknown History bumetanide 2 mg tablet 2 mg PO BID@0800,1200 09/06/23 09/06/23 09/05/23 History glimepiride 4 mg tablet 4 mg PO DAILY@1200 09/06/23 09/06/23 Unknown History ropinirole 0.25 mg tablet 0.25 mg PO BID@1200,2100 09/06/23 09/06/23 09/05/23 History sitagliptin phosphate 50 mg tablet 50 mg PO DAILY@1800 09/06/23 09/06/23 09/05/23 History (Januvia) Physical Exam Vital Signs: Last Vital Signs Temp 97.9 F 09/07/23 14:55 Pulse 72 09/07/23 14:55 Resp 22 H 09/07/23 14:55 BP 99/58 L 09/07/23 14:55 Pulse Ox 96 09/07/23 14:55 O2 Del Method Nasal Cannula 09/07/23 14:55 O2 Flow Rate 2 09/07/23 14:55 Oxygen Flow Rate 2 09/05/23 20:22 BMI result Body Mass Index 25.7 Results Lab Results 09/09/23 06:32 09/09/23 06:32 Lab results: Chemistry 09/05/23 09/06/23 09/07/23 20:32 04:50 06:16 Sodium 137 137 136 Potassium 3.6 2.9 L* 3.7 D Carbon Dioxide 31 H 29 29 BUN 61 H 61 H 75 H Creatinine 3.93 H 4.01 H* 5.16 H* Calcium 10.7 H D 9.8 D 9.8 Hematology 09/05/23 09/06/23 09/07/23 20:32 04:50 06:16 WBC 8.3 9.3 8.4 Hgb 10.8 L 9.9 L 9.4 L Plt Count 169 164 141 L Urinalysis 09/06/23 01:54 Urine Color Yellow Urine Appearance Clear Urine pH 5.5 Ur Specific [place] 1.010 Urine Protein 100 (2+) H Urine Glucose (UA) Negative Urine Ketones Negative Urine Blood Moderate (2+) H Urine Nitrite Negative Ur Leukocyte Esterase Negative Urine RBC 0-2 Urine WBC 0-5 Ur Squamous Epith Cells 0-2 Hyaline Casts 3-5 Assessment and Plan (1) Metastasis to liver: Status: Acute (2) Acute kidney injury superimposed on CKD: Status: Acute Plan DUSTIN superimposed on CKD Dustin due to hypoperfusion in a setting of CHF Watch for obstruction Clinically appears comfortable Agree with holding diuretics today and reassess No absolute indication for dialysis today If renal function does not improve, he would need dialysis Shall follow closely with the team Procedures Date of Service Date of Service: 09/09/23
[2023-09-07] MEDS: Atorvastatin Calcium 80 MG TABLET PO (17:07)
[2023-09-07 19:42] VITALS: BP 105/55; PULSE 70; RESP 19; TEMP 36.2; O2SAT 95
[2023-09-07 20:00] LABS: Glucose, Whole Blood 110 mg/dL (60-115)
[2023-09-07 21:46] VITALS: BP 103/53; PULSE 68
[2023-09-07] MEDS: allopurinoL 100 MG TABLET PO (21:47)
[2023-09-07] MEDS: Gabapentin 100 MG CAPSULE PO (21:48)
[2023-09-07] MEDS: Tamsulosin HCL 0.4 MG CAPSULE PO (21:48)
[2023-09-07] MEDS: Sennosides 8.6 MG TABLET 17.2 MG PO (21:48)
[2023-09-07] MEDS: 0.9 % Sodium Chloride Flush 3 ML SYRINGE IVFLUSH (21:50)
[2023-09-08] VITALS: BP 101/49; PULSE 69; RESP 18; TEMP 36.1; O2SAT 95
[2023-09-08 06:00] VITALS: BMI 27.7
[2023-09-08 07:06] LABS: Hematocrit 30.5 % (42.0-52.0); Hemoglobin 9.9 g/dl (14.0-18.0); Mean Corpuscular HGB Conc 32.5 g/dl (31.0-36.0); Mean Corpuscular Hemoglobin 29.8 pg (27.0-33.0); Mean Corpuscular Volume 91.9 fL (80.0-98.0); Mean Platelet Volume 11.8 fL (9.4-12.4); Platelet Count 174 X10*3/uL (160-400); Red Blood Count 3.32 X10*6/uL (4.60-5.80); Red Cell Distribution Width 17.3 % (11.0-16.0); White Blood Count 9.2 X10*3/uL (4.8-10.8)
[2023-09-08 07:23] VITALS: BP 122/58; PULSE 75; RESP 20; TEMP 36.5; O2SAT 96
[2023-09-08 07:24] LABS: Glucose, Whole Blood 105 mg/dL (60-115)
[2023-09-08 07:26] LABS: Anion Gap 22 (12-20); Blood Urea Nitrogen 89 mg/dL (9-16); Calcium 9.6 mg/dL (8.4-10.2); Carbon Dioxide 29 mmol/L (22-29); Chloride 89 mmol/L (96-108); Estimated Glomerular Filt Rate 9; Glucose Fasting 97 mg/dL (60-99); Magnesium 2.7 mg/dL (1.6-2.6); Potassium 4.4 mmol/L (3.3-5.1); Sodium 136 mmol/L (135-145)
[2023-09-08] MEDS: 0.9 % Sodium Chloride Flush 3 ML SYRINGE IVFLUSH ×3 (08:45→22:39)
[2023-09-08] MEDS: carvediloL 3.125 MG TABLET PO (08:45)
--- NOTE | 2023-09-08 10:05 | HO.PM.IMPN ---
Subjective Subjective Date of Service: 09/08/23 Interval History: hematuria resolved Physical Exam Vital Signs: Vital Signs: Last Vital Signs Temp 97.7 F 09/08/23 07:23 Pulse 75 09/08/23 07:23 Resp 20 09/08/23 07:23 BP 122/58 L 09/08/23 07:23 Pulse Ox 96 09/08/23 07:23 O2 Del Method Nasal Cannula 09/08/23 07:23 O2 Flow Rate 2 09/08/23 07:23 Oxygen Flow Rate 2 09/05/23 20:22 BMI result Body Mass Index 27.7 Const: General: cooperative, comfortable, alert and awake Nutritional Appearance: cachectic Orientation/consciousness: patient oriented x3 HEENT: Head: Yes normocephalic and Yes atraumatic Neck: Neck: Yes trachea midline, Yes supple and Yes JVD Resp: Effort & Inspection: normal respiratory effort Auscultation: crackles Cardio: Jugular venous distension: JVD Palpation: abnormal PMI displaced PMI Rate: regular rate Rhythm: regular rhythm Heart sounds: S1 normal heart sound present, S2 normal heart sound present, no click, no gallops and no rubs GI: Auscultation: normal bowel sounds Skin: General skin exam: no rashes or lesions noted Neuro: General: patient oriented x3 and no focal motor deficits Extrem: General: No clubbing, No cyanosis and Yes edema Objective Data Active Medications Acetaminophen (Acetaminophen 325 Mg Tablet) 650 mg PO Q6H PRN PRN Reason: Pain, Mild (Pain Scale 1-3) Last Admin: 09/06/23 21:09 Dose: 650 mg Documented By: ROSSY Allopurinol (Allopurinol 100 Mg Tablet) 100 mg PO BEDTIME [facility] Last Admin: 09/07/23 21:47 Dose: 100 mg Documented By: VANCE Atorvastatin Calcium (Atorvastatin Calcium 80 Mg Tablet) 80 mg PO DAILY@1800 [facility] Last Admin: 09/07/23 17:07 Dose: 80 mg Documented By: NINI Carvedilol (Carvedilol 3.125 Mg Tablet) 3.125 mg PO BID [facility]; Protocol Last Admin: 09/08/23 08:45 Dose: 3.125 mg Documented By: IRIS Dextrose (Dextrose 50 % 25 Gm/50 Ml Syringe) 25 gm IVPUSH Q15M PRN; Protocol PRN Reason: per Hypoglycemia Standing Ord. Docusate Sodium (Docusate Sodium 100 Mg Capsule) 100 mg PO DAILY PRN PRN Reason: Constipation Gabapentin (Gabapentin 100 Mg Capsule) 100 mg PO BEDTIME [facility] Last Admin: 09/07/23 21:48 Dose: 100 mg Documented By: VANCE Glucose (Glucose Gel 15 Gm Gel..Gram.) 15 gm PO Q15M PRN; Protocol PRN Reason: per Hypoglycemia Standing Ord. Insulin Human Lispro (Insulin Lispro 100 Unit/Ml 3 Ml Vial) 0 unit SUBCUT QIDACHS [facility]; Protocol Last Admin: 09/08/23 08:37 Dose: Not Given Documented By: IRIS Non-Admin Reason: No Insulin Coverage Ondansetron HCl (Ondansetron Hcl 4 Mg/2 Ml Vial) 4 mg IVPUSH Q8H PRN PRN Reason: Nausea and Vomiting Ropinirole HCl (Ropinirole Hcl 0.25 Mg Tablet) 0.25 mg PO BID@1200,2100 [facility] Last Admin: 09/07/23 21:47 Dose: 0.25 mg Documented By: VANCE Senna (Sennosides 8.6 Mg Tablet) 17.2 mg PO BEDTIME [facility] Last Admin: 09/07/23 21:48 Dose: 17.2 mg Documented By: VANCE Sodium Chloride (0.9 % Sodium Chloride Flush 3 Ml Syringe) [facility] Last Admin: 09/08/23 08:45 Dose: 3 ml Documented By: IRIS Tamsulosin HCl (Tamsulosin Hcl 0.4 Mg Capsule) 0.4 mg PO BEDTIME [facility] Last Admin: 09/07/23 21:48 Dose: 0.4 mg Documented By: VANCE Tizanidine HCl (Tizanidine Hcl 4 Mg Tablet) 4 mg PO TID PRN PRN Reason: Spasms Last Admin: 09/06/23 19:33 Dose: 4 mg Documented By: CRIS Labs 09/08/23 06:32 09/08/23 06:32 Labs: Laboratory Results - last 24 hr 09/07/23 09/07/23 09/07/23 11:02 15:52 19:45 MCV MCH MCHC RDW Plt Count MPV Absolute Nucleated RBC Nucleated RBC % (auto) Anion Gap Estim Creat Clear Calc Estimated GFR POC Glucose 181 H 156 H 110 Fasting Glucose Calcium Magnesium 09/08/23 09/08/23 06:32 07:13 MCV 91.9 MCH 29.8 MCHC 32.5 RDW 17.3 H Plt Count 174 MPV 11.8 Absolute Nucleated RBC 0.000 Nucleated RBC % (auto) 0.0 Anion Gap 22 H Estim Creat Clear Calc 9.0 Estimated GFR 9 POC Glucose 105 Fasting Glucose 97 Calcium 9.6 Magnesium 2.7 H Assessment and Plan (1) Chest pain: Status: Acute Plan 83M PMH type 2 diabetes, GERD, hyperlipidemia, aortic aneurysm, heart failure reduced ejection fraction, coronary artery disease s/p CABG, CKD stage 4, TIA, chronic atrial fibrillation on Xarelto with biventricular ICD in place presented with chest pain and sob, found to be in chf, mark on ckd iv, and noted to have new finding of liver mets, hematuria. acute hypoxic respiratory failure due to acute on chronic systolic and right sided chf now back on 2L echo with ef 25-30%, rv dysfunction MARK on CKD IV holding diuresis, creatinine still increasing, nephro following monitor closely chest pain doubt acs, troponin flat new finding of liver metasteses with weight loss and suspicious lung nodule suspect primary lung cancer with liver mets biopsy of liver met and pet ct outpatient oncology appreciated hematuria holding xarelto resolved, dc frederick/cbi chronic afib holding xarelto for biopsy and hematuria coreg DM insulin bph flomax dvt prophylaxis - mechanical due to hematuria full code reason for continued hospitalization:worsening renal function Quality Stroke Does the patient have a stroke diagnosis?: No VTE Prior VTE?: No VTE Risk Level:: Medical - moderate - high VTE Device Contraindication: Treatment Not Indicated VTE Drug Contraindication: N/A - Med Ordered
--- NOTE | 2023-09-08 11:20 | PM.PNCARD ---
Subjective Subjective Date of Service: 09/08/23 Principal diagnosis: Acute kidney injury, congestive heart failure, hematuria Interval history: Patient creatinine is further gone up. Nephrology is on board. Blood pressures improved. No significant other symptoms. Review of Systems Constitutional: Reports weakness Eyes: Reports no additional eye complaints Cardiovascular: Reports no additional cardiovascular complaints Reports system reviewed and no additional complaints, except as documented and Reports weakness Physical Exam Vital Signs: Last Vital Signs Temp 97.7 F 09/08/23 07:23 Pulse 75 09/08/23 07:23 Resp 20 09/08/23 07:23 BP 122/58 L 09/08/23 07:23 Pulse Ox 96 09/08/23 07:23 O2 Del Method Nasal Cannula 09/08/23 07:23 O2 Flow Rate 2 09/08/23 07:23 Oxygen Flow Rate 2 09/05/23 20:22 BMI result Body Mass Index 27.7 Const General: cooperative, comfortable, alert and awake Nutritional Appearance: cachectic Orientation/consciousness: patient oriented x3 HEENT Head: Yes normocephalic and Yes atraumatic Neck Neck: Yes trachea midline, Yes supple and Yes JVD Resp Effort & Inspection: normal respiratory effort Auscultation: crackles Cardio Jugular venous distension: JVD Palpation: abnormal PMI displaced PMI Rate: regular rate Rhythm: regular rhythm Heart sounds: S1 normal heart sound present, S2 normal heart sound present, no click, no gallops and no rubs GI Auscultation: normal bowel sounds Skin General skin exam: no rashes or lesions noted Neuro General: patient oriented x3 and no focal motor deficits Extrem General: No clubbing, No cyanosis and Yes edema Objective Labs and Meds 09/08/23 06:32 09/08/23 06:32 Lab results: Laboratory Results - last 24 hr 09/07/23 09/07/23 09/08/23 15:52 19:45 06:32 WBC 9.2 RBC 3.32 L Hgb 9.9 L Hct 30.5 L MCV 91.9 MCH 29.8 MCHC 32.5 RDW 17.3 H Plt Count 174 MPV 11.8 Absolute Nucleated RBC 0.000 Nucleated RBC % (auto) 0.0 Sodium 136 Potassium 4.4 Chloride 89 L Carbon Dioxide 29 Anion Gap 22 H BUN 89 H Creatinine 6.26 H* Estim Creat Clear Calc 9.0 Estimated GFR 9 POC Glucose 156 H 110 Fasting Glucose 97 Calcium 9.6 Magnesium 2.7 H 09/08/23 07:13 WBC RBC Hgb Hct MCV MCH MCHC RDW Plt Count MPV Absolute Nucleated RBC Nucleated RBC % (auto) Sodium Potassium Chloride Carbon Dioxide Anion Gap BUN Creatinine Estim Creat Clear Calc Estimated GFR POC Glucose 105 Fasting Glucose Calcium Magnesium Progress Note: A&P Assessment and plan (1) CHF exacerbation: Status: Acute Assessment and Plan: Patient admitted with decompensated congestive heart failure now as having acute kidney injury probably due to over diuresis and low blood pressure and poor perfusion. At this point time continue to hold diuresis. Overall prognosis guarded. Nephrology is on board. Continue carvedilol therapy. Avoid other medications that could potentially low blood pressure. Question obstructive uropathy. Patient wants to pursue all means of therapy including dialysis with so required. Will leave that decision up to Nephrology. Agree that he may not be the best candidate for dialysis given his multiple medical issues including advanced heart failure as well as metastatic disease in the liver. (2) Chronic atrial fibrillation: Status: Acute Assessment and Plan: Chronic atrial fibrillation, rate control with carvedilol. Has developed significant hematuria. Holding oral anticoagulation therapy. Will continue to follow with you Time Spent With Patient Time: Total time managing care of this patient today ____ minutes. Progress Note: Quality Stroke Does the patient have a stroke diagnosis?: No Procedures Date of Service Date of Service: 09/08/23
[2023-09-08 11:51] LABS: Glucose, Whole Blood 192 mg/dL (60-115)
[2023-09-08 12:00] VITALS: BP 102/51; PULSE 73; RESP 20; TEMP 36.5; O2SAT 95
[2023-09-08] MEDS: Insulin Lispro 100 UNIT/ML 3 ML VIAL SUBCUT ×2 (12:01→16:46)
[2023-09-08] MEDS: rOPINIRole HCL 0.25 MG TABLET PO ×2 (12:01→22:38)
[2023-09-08 15:26] LABS: Glucose, Whole Blood 173 mg/dL (60-115)
[2023-09-08 15:52] VITALS: BP 100/50; PULSE 72; RESP 20; TEMP 36.6; O2SAT 97
[2023-09-08] MEDS: Atorvastatin Calcium 80 MG TABLET PO (16:46)
[2023-09-08 20:00] VITALS: BP 102/54; PULSE 71; RESP 20; TEMP 36.4; O2SAT 95
[2023-09-08 20:45] LABS: Glucose, Whole Blood 137 mg/dL (60-115)
[2023-09-08] MEDS: Tamsulosin HCL 0.4 MG CAPSULE PO (22:38)
[2023-09-08] MEDS: Gabapentin 100 MG CAPSULE PO (22:38)
[2023-09-08] MEDS: Sennosides 8.6 MG TABLET 17.2 MG PO (22:39)
[2023-09-08] MEDS: allopurinoL 100 MG TABLET PO (22:39)
[2023-09-09] VITALS (7 sets, daily range): BP systolic 92–112; BP diastolic 51–73; PULSE 68–79; RESP 18–20; TEMP 36.2–36.6; O2SAT 94–98; BMI 28.1
[2023-09-09 07:06] LABS: Hematocrit 27.2 % (42.0-52.0); Mean Corpuscular HGB Conc 33.1 g/dl (31.0-36.0); Mean Corpuscular Volume 90.7 fL (80.0-98.0); Mean Platelet Volume 11.5 fL (9.4-12.4); Platelet Count 154 X10*3/uL (160-400); Red Cell Distribution Width 17.3 % (11.0-16.0); White Blood Count 8.3 X10*3/uL (4.8-10.8)
[2023-09-09 07:13] LABS: Anion Gap 23 (12-20); Blood Urea Nitrogen 104 mg/dL (9-16); Calcium 9.2 mg/dL (8.4-10.2); Carbon Dioxide 29 mmol/L (22-29); Chloride 83 mmol/L (96-108); Creatinine Clr Calc Pharmacy 7.1; Estimated Glomerular Filt Rate 6; Glucose Fasting 97 mg/dL (60-99); Potassium 4.7 mmol/L (3.3-5.1); Sodium 130 mmol/L (135-145)
[2023-09-09 07:37] LABS: Glucose, Whole Blood 104 mg/dL (60-115)
[2023-09-09] MEDS: 0.9 % Sodium Chloride Flush 3 ML SYRINGE IVFLUSH ×3 (08:42→20:36)
[2023-09-09] MEDS: ondansetron HCL 4 MG/2 ML VIAL IVPUSH ×2 (08:42→16:53)
[2023-09-09] MEDS: carvediloL 3.125 MG TABLET PO ×2 (08:42→20:35)
--- NOTE | 2023-09-09 10:28 | HO.PM.IMPN ---
Subjective Subjective Date of Service: 09/09/23 Interval History: nasuea, weakness today, minimal urine output Physical Exam Vital Signs: Vital Signs: Last Vital Signs Temp 97.2 F 09/09/23 07:04 Pulse 68 09/09/23 07:04 Resp 18 09/09/23 07:04 BP 107/73 09/09/23 07:04 Pulse Ox 95 09/09/23 07:04 O2 Del Method Nasal Cannula 09/09/23 07:04 O2 Flow Rate 2 09/09/23 07:04 Oxygen Flow Rate 2 09/05/23 20:22 BMI result Body Mass Index 28.1 alert, oriented times 3, ill appearing, frail, asterixis Objective Data Active Medications Acetaminophen (Acetaminophen 325 Mg Tablet) 650 mg PO Q6H PRN PRN Reason: Pain, Mild (Pain Scale 1-3) Last Admin: 09/06/23 21:09 Dose: 650 mg Documented By: ROSSY Allopurinol (Allopurinol 100 Mg Tablet) 100 mg PO BEDTIME [facility] [place] Last Admin: 09/08/23 22:39 Dose: 100 mg Documented By: BHUMIKA Atorvastatin Calcium (Atorvastatin Calcium 80 Mg Tablet) 80 mg PO DAILY@1800 [facility] Last Admin: 09/08/23 16:46 Dose: 80 mg Documented By: IRIS Carvedilol (Carvedilol 3.125 Mg Tablet) 3.125 mg PO BID [facility]; Protocol Last Admin: 09/09/23 08:42 Dose: 3.125 mg Documented By: IRIS Dextrose (Dextrose 50 % 25 Gm/50 Ml Syringe) 25 gm IVPUSH Q15M PRN; Protocol PRN Reason: per Hypoglycemia Standing Ord. Docusate Sodium (Docusate Sodium 100 Mg Capsule) 100 mg PO DAILY PRN PRN Reason: Constipation Gabapentin (Gabapentin 100 Mg Capsule) 100 mg PO BEDTIME [facility] [place] Last Admin: 09/08/23 22:38 Dose: 100 mg Documented By: BHUMIKA Glucose (Glucose Gel 15 Gm Gel..Gram.) 15 gm PO Q15M PRN; Protocol PRN Reason: per Hypoglycemia Standing Ord. Insulin Human Lispro (Insulin Lispro 100 Unit/Ml 3 Ml Vial) 0 unit SUBCUT QIDACHS [facility] [place]; Protocol Last Admin: 09/09/23 07:41 Dose: Not Given Documented By: IRIS Non-Admin Reason: No Insulin Coverage Ondansetron HCl (Ondansetron Hcl 4 Mg/2 Ml Vial) 4 mg IVPUSH Q8H PRN PRN Reason: Nausea and Vomiting Last Admin: 09/09/23 08:42 Dose: 4 mg Documented By: IRIS Ropinirole HCl (Ropinirole Hcl 0.25 Mg Tablet) 0.25 mg PO BID@1200,2100 [facility] [place] Last Admin: 09/08/23 22:38 Dose: 0.25 mg Documented By: BHUMIKA Senna (Sennosides 8.6 Mg Tablet) 17.2 mg PO BEDTIME [facility] [place] Last Admin: 09/08/23 22:39 Dose: 17.2 mg Documented By: BHUMIKA Sodium Chloride (0.9 % Sodium Chloride Flush 3 Ml Syringe) 3 ml IVFLUSH QSHIFT [facility] [place] Last Admin: 09/09/23 08:42 Dose: 3 ml Documented By: IRIS Tamsulosin HCl (Tamsulosin Hcl 0.4 Mg Capsule) 0.4 mg PO BEDTIME [facility] Last Admin: 09/08/23 22:38 Dose: 0.4 mg Documented By: BHUMIKA Tizanidine HCl (Tizanidine Hcl 4 Mg Tablet) 4 mg PO TID PRN PRN Reason: Spasms Last Admin: 09/06/23 19:33 Dose: 4 mg Documented By: CRIS Labs 09/09/23 06:32 09/09/23 06:32 Labs: Laboratory Results - last 24 hr 09/08/23 09/08/23 09/08/23 11:43 15:19 20:37 MCV MCH MCHC RDW Plt Count MPV Absolute Nucleated RBC Nucleated RBC % (auto) Anion Gap Estim Creat Clear Calc Estimated GFR POC Glucose 192 H 173 H 137 H Fasting Glucose Calcium 09/09/23 09/09/23 06:32 07:28 MCV 90.7 MCH 30.0 MCHC 33.1 RDW 17.3 H Plt Count 154 L MPV 11.5 Absolute Nucleated RBC 0.000 Nucleated RBC % (auto) 0.0 Anion Gap 23 H Estim Creat Clear Calc 7.1 Estimated GFR 6 POC Glucose 104 Fasting Glucose 97 Calcium 9.2 Assessment and Plan (1) Chest pain: Status: Acute Plan 83M PMH type 2 diabetes, GERD, hyperlipidemia, aortic aneurysm, heart failure reduced ejection fraction, coronary artery disease s/p CABG, CKD stage 4, TIA, chronic atrial fibrillation on Xarelto with biventricular ICD in place presented with chest pain and sob, found to be in chf, mark on ckd iv, and noted to have new finding of liver mets, hematuria. acute hypoxic respiratory failure due to acute on chronic systolic and right sided chf now back on 2L echo with ef 25-30%, rv dysfunction holding diuresis for mark MARK on CKD IV holding diuresis, creatinine still increasing, now developing oliguia and signs of uremia with nausea ans asterixis monitor closely npo after midnight for hd catheter chest pain doubt acs, troponin flat new finding of liver metastases with weight loss and suspicious lung nodule suspect primary lung cancer with liver mets biopsy of liver met and pet ct outpatient oncology appreciated hematuria holding xarelto resolved, dc frederick/cbi chronic afib holding xarelto for biopsy and hematuria, hd cath coreg DM insulin bph flomax dvt prophylaxis - mechanical due to hematuria full code reason for continued hospitalization:worsening renal function Quality Stroke Does the patient have a stroke diagnosis?: No VTE Prior VTE?: No VTE Risk Level:: Medical - moderate - high VTE Device Contraindication: Treatment Not Indicated VTE Drug Contraindication: N/A - Med Ordered
[2023-09-09 11:36] LABS: Glucose, Whole Blood 112 mg/dL (60-115)
[2023-09-09] MEDS: rOPINIRole HCL 0.25 MG TABLET PO ×2 (12:26→20:35)
[2023-09-09 16:23] LABS: Glucose, Whole Blood 134 mg/dL (60-115)
[2023-09-09] MEDS: Atorvastatin Calcium 80 MG TABLET PO (16:52)
--- NOTE | 2023-09-09 18:10 | PC.NURSE ---
Patient reported not urinating during RN shift, bladder scanned 3 different times throughout shift, 0 mL of urine in bladder. MD aware.
[2023-09-09] MEDS: Gabapentin 100 MG CAPSULE PO (20:35)
[2023-09-09] MEDS: Tamsulosin HCL 0.4 MG CAPSULE PO (20:35)
[2023-09-09] MEDS: allopurinoL 100 MG TABLET PO (20:35)
--- NOTE | 2023-09-09 21:02 | PM.EVENT ---
Event Note Date of Service: 09/09/23 Event Note: Events noted No improvement in renal function Discussed with hospitalist Will arrange for dialysis catheter and intiate dialysis Time Spent With Patient Time: Total time managing care of this patient today ____ minutes.
[2023-09-09 21:16] LABS: Glucose, Whole Blood 130 mg/dL (60-115)
[2023-09-10] VITALS (7 sets, daily range): BP systolic 84–97; BP diastolic 42–68; PULSE 69–78; RESP 18–24; TEMP 36.3–37.3; O2SAT 92–96
[2023-09-10 06:47] LABS: Prothrombin Time 12.1 SEC (11.1-13.3)
[2023-09-10 06:48] LABS: Hematocrit 26.4 % (42.0-52.0); Hemoglobin 8.8 g/dl (14.0-18.0); Mean Corpuscular HGB Conc 33.3 g/dl (31.0-36.0); Mean Corpuscular Hemoglobin 30.6 pg (27.0-33.0); Mean Corpuscular Volume 91.7 fL (80.0-98.0); Mean Platelet Volume 11.6 fL (9.4-12.4); Platelet Count 161 X10*3/uL (160-400); Red Blood Count 2.88 X10*6/uL (4.60-5.80); Red Cell Distribution Width 17.3 % (11.0-16.0); White Blood Count 8.1 X10*3/uL (4.8-10.8)
[2023-09-10 06:49] LABS: Partial Thromboplastin Time 38.4 SEC (26.0-36.8)
[2023-09-10 07:02] LABS: Alanine Aminotransferase 79 U/L (0-40); Albumin Level 2.6 g/dL (3.5-5.0); Alkaline Phosphatase 658 U/L (39-117); Anion Gap 27 (12-20); Aspartate Amino Transferase 149 U/L (5-37); Bilirubin Direct 3.2 mg/dL (0.0-0.5); Calcium 8.6 mg/dL (8.4-10.2); Carbon Dioxide 30 mmol/L (22-29); Chloride 79 mmol/L (96-108); Creatinine Clr Calc Pharmacy 5.5; Estimated Glomerular Filt Rate 5; Glucose Fasting 94 mg/dL (60-99); Potassium 5.7 mmol/L (3.3-5.1); Sodium 130 mmol/L (135-145); Total Protein 7.1 g/dL (6.5-8.0)
[2023-09-10 07:48] LABS: Glucose, Whole Blood 108 mg/dL (60-115)
[2023-09-10 08:00] LABS: Blood Urea Nitrogen 124 mg/dL (9-16)
[2023-09-10] MEDS: 0.9 % Sodium Chloride Flush 3 ML SYRINGE IVFLUSH ×2 (08:10→18:27)
--- NOTE | 2023-09-10 08:13 | PC.NURSE ---
BP:84/42 manually. Patient c/o dizziness and lightheadedness. MD notified. MD at beside. New order for 500cc IVF bolus. Patient educated on high fall risk protocol. Bed alarm in place.
[2023-09-10] MEDS: 0.9 % Sodium Chloride 500 ML 999 ML IV (08:15)
--- NOTE | 2023-09-10 08:36 | P.PNIM_ITS ---
Subjective Subjective Date of Service: 09/10/23 Interval History: worsening weakness, nausea Physical Exam 2 Vital Signs: Vital Signs: Last Vital Signs Temp 97.5 F 09/10/23 07:40 Pulse 71 09/10/23 07:40 Resp 20 09/10/23 07:40 BP 84/42 L 09/10/23 08:12 Pulse Ox 92 09/10/23 07:40 O2 Del Method Nasal Cannula 09/10/23 07:40 O2 Flow Rate 2 09/10/23 07:40 Oxygen Flow Rate 2 09/05/23 20:22 BMI result Body Mass Index 28.1 alert, oriented times 3, ill appearing, frail, asterixis Objective Data Active Medications Acetaminophen (Acetaminophen 325 Mg Tablet) 650 mg PO Q6H PRN PRN Reason: Pain, Mild (Pain Scale 1-3) Last Admin: 09/06/23 21:09 Dose: 650 mg Documented By: ROSSY Allopurinol (Allopurinol 100 Mg Tablet) 100 mg PO BEDTIME [facility] Last Admin: 09/09/23 20:35 Dose: 100 mg Documented By: BHUMIKA Atorvastatin Calcium (Atorvastatin Calcium 80 Mg Tablet) 80 mg PO DAILY@1800 [facility] Last Admin: 09/09/23 16:52 Dose: 80 mg Documented By: IRIS Carvedilol (Carvedilol 3.125 Mg Tablet) 3.125 mg PO BID [facility]; Protocol Last Admin: 09/10/23 08:10 Dose: Not Given Documented By: KARTHIK Non-Admin Reason: held low bp Dextrose (Dextrose 50 % 25 Gm/50 Ml Syringe) 25 gm IVPUSH Q15M PRN; Protocol PRN Reason: per Hypoglycemia Standing Ord. Docusate Sodium (Docusate Sodium 100 Mg Capsule) 100 mg PO DAILY PRN PRN Reason: Constipation Gabapentin (Gabapentin 100 Mg Capsule) 100 mg PO BEDTIME [facility] Last Admin: 09/09/23 20:35 Dose: 100 mg Documented By: BHUMIKA Glucose (Glucose Gel 15 Gm Gel..Gram.) 15 gm PO Q15M PRN; Protocol PRN Reason: per Hypoglycemia Standing Ord. Sodium Chloride (Ns) 500 mls @ 999 mls/hr IV .Q31M QUETA Stop: 09/10/23 08:45 Last Admin: 09/10/23 08:15 Dose: 999 mls/hr Documented By: KARTHIK Insulin Human Lispro (Insulin Lispro 100 Unit/Ml 3 Ml Vial) 0 unit SUBCUT QIDACHS [facility]; Protocol Last Admin: 09/10/23 08:10 Dose: Not Given Documented By: KARTHIK Non-Admin Reason: No Insulin Coverage Ondansetron HCl (Ondansetron Hcl 4 Mg/2 Ml Vial) 4 mg IVPUSH Q8H PRN PRN Reason: Nausea and Vomiting Last Admin: 09/09/23 16:53 Dose: 4 mg Documented By: IRIS Ropinirole HCl (Ropinirole Hcl 0.25 Mg Tablet) 0.25 mg PO BID@1200,2100 [facility] Last Admin: 09/09/23 20:35 Dose: 0.25 mg Documented By: BHUMIKA Senna (Sennosides 8.6 Mg Tablet) 17.2 mg PO BEDTIME [facility] Last Admin: 09/09/23 20:36 Dose: Not Given Documented By: BHUMIKA Non-Admin Reason: Patient Refused Sodium Chloride (0.9 % Sodium Chloride Flush 3 Ml Syringe) [facility] Last Admin: 09/10/23 08:10 Dose: 3 ml Documented By: KARTHIK Tamsulosin HCl (Tamsulosin Hcl 0.4 Mg Capsule) 0.4 mg PO BEDTIME [facility] Last Admin: 09/09/23 20:35 Dose: 0.4 mg Documented By: BHUMIKA Tizanidine HCl (Tizanidine Hcl 4 Mg Tablet) 4 mg PO TID PRN PRN Reason: Spasms Last Admin: 09/06/23 19:33 Dose: 4 mg Documented By: CRIS Labs 09/10/23 06:29 09/10/23 06:29 Labs: Laboratory Results - last 24 hr 09/09/23 09/09/23 09/09/23 11:27 16:15 20:24 MCV MCH MCHC RDW Plt Count MPV Absolute Nucleated RBC Nucleated RBC % (auto) PT INR APTT Anion Gap Estim Creat Clear Calc Estimated GFR POC Glucose 112 134 H 130 H Fasting Glucose Calcium Total Bilirubin Direct Bilirubin AST ALT Alkaline Phosphatase Total Protein Albumin 09/10/23 09/10/23 06:29 07:43 MCV 91.7 MCH 30.6 MCHC 33.3 RDW 17.3 H Plt Count 161 MPV 11.6 Absolute Nucleated RBC 0.000 Nucleated RBC % (auto) 0.0 PT 12.1 D INR 1.0 APTT 38.4 H D Anion Gap 27 H Estim Creat Clear Calc 5.5 Estimated GFR 5 POC Glucose 108 Fasting Glucose 94 Calcium 8.6 D Total Bilirubin 4.0 H Direct Bilirubin 3.2 H AST 149 H ALT 79 H Alkaline Phosphatase 658 H Total Protein 7.1 Albumin 2.6 L Assessment and Plan (1) Chest pain: Status: Acute Plan 83M PMH type 2 diabetes, GERD, hyperlipidemia, aortic aneurysm, heart failure reduced ejection fraction, coronary artery disease s/p CABG, CKD stage 4, TIA, chronic atrial fibrillation on Xarelto with biventricular ICD in place presented with chest pain and sob, found to be in chf, mark on ckd iv, and noted to have new finding of liver mets, hematuria. acute hypoxic respiratory failure due to acute on chronic systolic and right sided chf still needing 2L echo with ef 25-30%, rv dysfunction holding diuresis for mark MARK on CKD IV complicated by hyperkalemia, uremia holding diuresis, creatinine still increasing, now developing oliguia and signs of uremia with nausea and asterixis will give 500cc NS plan for hd cath and dialysis nephrlology following hpyotnesion due to hypovolemia from vomiting and chf not sepsis chest pain doubt acs, troponin flat new finding of liver metastases with weight loss and suspicious lung nodule suspect primary lung cancer with liver mets biopsy of liver met and pet ct outpatient oncology appreciated hematuria holding xarelto resolved chronic afib holding xarelto for biopsy and hematuria, hd cath coreg holding for low bp DM insulin bph flomax holding for low bp dvt prophylaxis - mechanical due to hematuria full code reason for continued hospitalization:worsening renal function Quality Stroke Does the patient have a stroke diagnosis?: No VTE Prior VTE?: No VTE Risk Level:: Medical - moderate - high VTE Device Contraindication: Treatment Not Indicated VTE Drug Contraindication: N/A - Med Ordered
[2023-09-10] MEDS: Midodrine HCl 10 MG TABLET PO ×3 (10:28→22:07)
--- NOTE | 2023-09-10 11:43 | MHC.CM.PN ---
Per MD rounds Patient will receive HD (Permacath) access and HD today. DP home self care, family transport.
[2023-09-10 11:57] LABS: Glucose, Whole Blood 99 mg/dL (60-115)
--- NOTE | 2023-09-10 12:27 | PM.PNNEP ---
Subjective Subjective Date of Service: 09/10/23 Principal diagnosis: Acute kidney injury, congestive heart failure, hematuria Interval history: Seen and examined this AM. All recent data reviewed. Uremic; Has worsening weakness, nausea with myoclonus Physical Exam Vital Signs: Vital Signs: Last Vital Signs Temp 97.4 F 09/10/23 11:08 Pulse 70 09/10/23 11:08 Resp 20 09/10/23 11:08 BP 88/49 L 09/10/23 11:08 Pulse Ox 92 09/10/23 11:08 O2 Del Method Nasal Cannula 09/10/23 11:08 O2 Flow Rate 2 09/10/23 11:08 Oxygen Flow Rate 2 09/05/23 20:22 BMI result Body Mass Index 28.1 Const: Other: Has myoclonus Orientation/consciousness: patient oriented x3 Eyes: EOM: EOMs intact bilaterally Neck: Other: JVD Resp: Auscultation: diminished lung sounds Cardio: Rate: regular rate GI: Palpation (GI): Soft to palpation Skin: General skin exam: no rashes or lesions noted Neuro: Other: Asterixis General: patient oriented x3 Extrem: General: Yes edema Objective Data Labs 09/10/23 06:29 09/10/23 06:29 Labs: Laboratory Results - last 24 hr 09/09/23 09/09/23 09/10/23 16:15 20:24 06:29 WBC 8.1 RBC 2.88 L Hgb 8.8 L Hct 26.4 L MCV 91.7 MCH 30.6 MCHC 33.3 RDW 17.3 H Plt Count 161 MPV 11.6 Absolute Nucleated RBC 0.000 Nucleated RBC % (auto) 0.0 PT 12.1 D INR 1.0 APTT 38.4 H D Sodium 130 L Potassium 5.7 H D Chloride 79 L Carbon Dioxide 30 H Anion Gap 27 H BUN 124 H Creatinine 10.27 H* Estim Creat Clear Calc 5.5 Estimated GFR 5 POC Glucose 134 H 130 H Fasting Glucose 94 Calcium 8.6 D Total Bilirubin 4.0 H Direct Bilirubin 3.2 H AST 149 H ALT 79 H Alkaline Phosphatase 658 H Total Protein 7.1 Albumin 2.6 L 09/10/23 09/10/23 07:43 11:16 WBC RBC Hgb Hct MCV MCH MCHC RDW Plt Count MPV Absolute Nucleated RBC Nucleated RBC % (auto) PT INR APTT Sodium Potassium Chloride Carbon Dioxide Anion Gap BUN Creatinine Estim Creat Clear Calc Estimated GFR POC Glucose 108 99 Fasting Glucose Calcium Total Bilirubin Direct Bilirubin AST ALT Alkaline Phosphatase Total Protein Albumin Procedures Date of Service Date of Service: 09/10/23 Assessment & Plan Assessment and plan (1) Acute kidney injury superimposed on CKD: Status: Acute Plan MARK likely due to tubular injury Has advanced CKD @ baseline Uremic with myoclonus For HD catheter today Started Midodrine 10 mg tid For HD today, /Sun From sunday- [facility] schedule HD RN aware of HD days(orders given) Answered all his and his son's questions Progress Note: Quality Stroke Does the patient have a stroke diagnosis?: No
--- NOTE | 2023-09-10 12:33 | MHC.CLN ---
F/U PT WITH INCREASED NUTRITION RISK R/T PRESSURE INJURY PT CURRENTLY NPO PREVIOUS PO INTAKE 75-100% PREVIOUS DIET RX: 2000DM CARDIAC-APPROPRIATE WHEN DIET TO RESUME; RECOMMEND RE-STARTING ENSURE MAX BID TO PROMOTE WOUND HEALING SUPP PROVIDES 300KCALS, 60G PROTEIN WITH 100% ACCEPTANCE MONITOR PO INTAKE AND ENCOURAGE SUPPLEMENT
--- NOTE | 2023-09-10 14:15 | PM.EVENT ---
Event Note Date of Service: 09/10/23 Event Note: Procedure Note: Right IJ Permcath Indications: MARK, needs access for dialysis Right IJ 23 cm tunneled permcath placed using US and Fluoro. Tip at cavoatrial junction. Ok for use. Yandel JACKSON Interventional Radiology Time Spent With Patient Time: Total time managing care of this patient today ____ minutes.
[2023-09-10] MEDS: ondansetron HCL 4 MG/2 ML VIAL IVPUSH (14:38)
[2023-09-10] MEDS: Atorvastatin Calcium 80 MG TABLET PO (18:28)
[2023-09-10] MEDS: 0.9 % Sodium Chloride 500 ML 250 ML IV (21:05)
[2023-09-10 21:14] LABS: MANUAL DIFF FLAG NO
[2023-09-10 21:16] LABS: Basophils Percent Auto 0.1 % (0-2); Eosinophils Percent Auto 0.1 % (0-4); Hematocrit 28.6 % (42.0-52.0); Hemoglobin 9.4 g/dl (14.0-18.0); Imm Gran Abs Auto 0.04 X10*3/uL (0.00-0.03); Imm Gran Pct Auto 0.4 % (0.0-0.4); Lymphocytes Absolute Auto 0.3 X10*3/uL (1.2-4.9); Mean Corpuscular HGB Conc 32.9 g/dl (31.0-36.0); Mean Corpuscular Hemoglobin 30.5 pg (27.0-33.0); Mean Corpuscular Volume 92.9 fL (80.0-98.0); Mean Platelet Volume 11.1 fL (9.4-12.4); Monocytes Absolute Auto 1.1 X10*3/uL (0.1-1.2); Monocytes Percent Auto 11.6 % (2-11); Neutrophils Absolute Auto 7.9 x10*3/uL (2.0-8.3); Neutrophils Percent Auto 84.8 % (45-73); Platelet Count 157 X10*3/uL (160-400); Red Blood Count 3.08 X10*6/uL (4.60-5.80); Red Cell Distribution Width 17.9 % (11.0-16.0); White Blood Count 9.3 X10*3/uL (4.8-10.8)
[2023-09-10 21:17] LABS: Glucose, Whole Blood 60 mg/dL (60-115)
[2023-09-10 21:35] LABS: Alanine Aminotransferase 130 U/L (0-40); Albumin Level 2.7 g/dL (3.5-5.0); Alkaline Phosphatase 688 U/L (39-117); Anion Gap 23 (12-20); Aspartate Amino Transferase 300 U/L (5-37); Bilirubin Total 4.3 mg/dL (0.0-1.0); Blood Urea Nitrogen 72 mg/dL (9-16); Carbon Dioxide 21 mmol/L (22-29); Chloride 92 mmol/L (96-108); Creatinine Clr Calc Pharmacy 8.2; Estimated Glomerular Filt Rate 8; Glucose Random 58 mg/dL (60-115); Potassium 5.6 mmol/L (3.3-5.1); Sodium 130 mmol/L (135-145); Total Protein 7.2 g/dL (6.5-8.0)
[2023-09-10 21:36] LABS: Lactic Acid 4.9 mmol/L (0.5-2.0)
[2023-09-10] MEDS: Dextrose 50 % 25 GM/50 ML SYRINGE IVPUSH (21:57)
[2023-09-10 22:06] LABS: Venous Blood Gas Refer to POC result
[2023-09-10 22:07] LABS: VBG Base Excess -3.9 mmol/L; VBG HCO3 21 mmol/L (22-26); VBG pCO2 39 mmHg; VBG pH 7.33 (7.32-7.43); VBG pO2 60 mmHg
[2023-09-10] MEDS: allopurinoL 100 MG TABLET PO (22:07)
[2023-09-10] MEDS: Acetaminophen 325 MG TABLET 975 MG PO (22:07)
[2023-09-10 22:37] LABS: Glucose, Whole Blood 118 mg/dL (60-115)
[2023-09-10 22:51] LABS: B Type Natriuretic Peptide 1081 pg/mL (<100)
[2023-09-10 22:55] LABS: Troponin-I High Sensitivity 162.1 ng/L (<3.5-35.0)
--- NOTE | 2023-09-10 23:00 | W.ED.CONS.HO ---
Consult Details Consult Details: At 22:31, code mirna was called -patient went into cardiac arrest -patient had his 1st dialysis earlier today. -patient needed emergent intubation -patient received several doses of epinephrine, calcium chloride and bicarbonate. Procedures Intubation Intubation Type:: Endotracheal Tube Insertion Intubation Date:: 09/10/23 Intubation Time:: 22:35 sedative: none ET Tube Size: 7.5 ET Tube Uncuffed: No Tube Secured Depth (cm): 24 Tube Secured Location: lips Tube Placement Confirmation: visualized tube passing through cords, equal breath sounds bilaterally and no breath sounds over epigastrium Patient Tolerated Procedure: well Intubation Complications: none
[2023-09-10 23:13] LABS: Reflex Lactate? Lactic Acid Added
--- NOTE | 2023-09-10 23:27 | PM.CCN ---
Critical Care Event Note Summary Date of Service: 09/10/23 Code activated: Yes Narrative: This case had a high probability of a clinically significant, sudden, or life threatening deterioration of this patient's condition which required my full and direct attention, intervention and personal management. Critical Care Time (minutes): 75 Comment: Mr Macias is 83-year-old male with history of upy-bjtlbms-wobohksha type 2 diabetes, GERD, hyperlipidemia, aortic aneurysm, heart failure reduced ejection fraction, coronary artery disease s/p CABG, CKD stage 4, TIA, chronic atrial fibrillation on Xarelto with biventricular ICD admitted for management of CHF, MARK on CKD IV, and noted to have new finding of lung cancer with liver mets and hematuria. I was called to assess the patient for hypotension, an elevated lactic acid and pain since receiving dialysis today. At 22:20, he was alert and oriented, c/o allover discomfort. He denied any difficulty breathing. O2 sat 94% on 4LNC. Last BP 90/50. He received a total of 750ml NS and D50 for blood glucose of 58 and empiric antibiotics prior to my arrival.? I spoke with Dr. Garrett and recommended giving albumin, D10, checking a trop and BNP. Continue to monitor on floor as there did not appear to be an immediate need for pressors. Consult the ICU?if patient?s condition continues to deteriorate. Case was discussed with Dr. Deras over the phone. At 22:31, the patient was found unresponsive and a Code Blue was called. CPR and ALS protocol were initiated. The patient was intubated, 5 rounds of epinephrine, sodium bicarb and calcium chloride were administered. We were unable to achieve ROSC. ACLS measures were terminated at 22:48.? The patient was pulseless showing PEA on the monitor. Absent peripheral pulses. Pupils fixed and dilated. Absent heart sounds.
--- NOTE | 2023-09-10 23:59 | PC.NURSE ---
MD and cable television line technician at bedside to evaluate pt who reports not feeling well. S/P 1 st hemodialysis treatment, labs obtained with critical abnormal lab values reported to md. witnessed unresponsiveness noted Code BLUE called with team at bedside.
--- NOTE | 2023-09-11 02:41 | PM.EVENT ---
Event Note Date of Service: 09/11/23 Event Note: 8:27 PM - contacted by nursing to notify patient is stating that he feels horrible and would like MD to see him. 8:35 PM - I did evaluate patient who told me and complaining of pain all over his body and was asking for pain medications. He also stated feeling nauseous and unwell since he had the hemodialysis today. Cardiopulmonary and abdominal exams were unremarkable. His blood pressure has been in the low side. I was informed patient has been getting treatment with midodrine, last dose given at 6:30 PM. I did order Tylenol and ordered stat blood workup: CBC, CMP, lactic acid and blood cultures. 9:36 PM - Blood workup came back remarkable for lactic acid of 4.9 and hypoglycemia of 58. Hemoglobin was 9.4 (around baseline), hyperkalemia of 5.6. Venous gas showed pH of 7.33, pCO2 39 and bicarb 21. LFTs noted to be trending up. Therapy with D50 amp given and treatment with IV fluids started (gently due to patient's significant systolic congestive heart failure). Therapy with empiric IV antibiotic therapy with vancomycin and Zosyn was ordered. 9:56 PM - Contacted critical care physician on-call Dr. Deras who recommended treatment with albumin 2 bottles and D10 to run 50 mL/hr, and to obtain troponin and BNP meanwhile. BNP was 1081(better than prior) and troponin 162.1. 10:31 PM - I went to reevaluate patient found him unresponsive and without palpable pulse. Adrianna bradley was called. Patient on was intubated successfully by ED provider Dr. Kelsey. Unfortunately, resuscitation measures were attempt without success. 10:56 PM - Attempted to contact patient's sons, Reji and Merlin Macias but no answer. Left a message. 11:50 PM - Attempted to contact patient's sons again but no answer. Time Spent With Patient Time: Total time managing care of this patient today ____ minutes.
--- NOTE | 2023-09-11 07:02 | PM.DDS ---
Discharge Sum: Prov Provider Primary care physician: Kishan Paez MD Consults: 09/05/23 23:11 Consult to Cardiology Routine Consulting Provider: [facility] Reason for consultation: chf, chest pain, elevated trops Has provider been notified: Yes 09/06/23 05:12 Consult to Urology Routine Consulting Provider: Gifty Day Reason for consultation: hematuria 09/06/23 08:55 Consult to Hematology / Oncology Routine Consulting Provider: Lia Loza Reason for consultation: liver mets, likely lung primary 09/06/23 21:06 Consult to Wound Care Routine Reason for consultation: stge 1 coccxy 09/07/23 08:37 Consult to Nephrology Routine Consulting Provider: [facility] [place] Reason for consultation: rico on ckd IV Discharge Sum: Diag Contributing Factors (1) Acute kidney injury superimposed on CKD: Discharge Sum: Summary Date and Time Date of admission: 09/05/23 22:42 Summary Details: from initial hpi: 83-year-old male with history of lbc-rntnejy-esakthgtn type 2 diabetes, GERD, hyperlipidemia, aortic aneurysm, heart failure reduced ejection fraction, coronary artery disease s/p CABG, CKD stage 4, TIA, chronic atrial fibrillation on Xarelto with biventricular ICD in place presented to the ED earlier today for evaluation of dyspnea. He reports last night developed orthopnea, PND as well as lightheadedness and then today noted significant dyspnea on exertion. Today he has also been experiencing retrosternal chest pressure that is nonradiating. He was recently admitted for CHF exacerbation from 07/08-07/09 and discharged on Bumex and Isordil which he reports compliance with. Follows with Dr. Montanez in Cardiology. Denies any recent illness, fevers, chills, abdominal pain, nausea, vomiting, urinary issues, diarrhea, palpitations, syncope. On arrival, vital signs stable though noted to be hypoxic to 87% placed on 2 L supplemental O2 now maintaining oximetry 93%. There is no leukocytosis. He has a stable normocytic anemia with H/H 10.8/33.0%. Creatinine 3.93, increased from baseline of around 2.49. BUN 61. Electrolyte levels normal except for chloride 92, Ca 10.7 and CO2 31. Glucose 237. Total bilirubin 3.1, AST 151, ALT 88, alkaline phosphatase 755. Initial troponin 54.2, repeat pending. BNP 1402. Negative for influenza, RSV, COVID-19. Chest x-ray shows interstitial prominence with patchy bilateral opacities, slightly decreased when compared to prior but no new confluent airspace consolidation. EKG shows ventricular paced rhythm, rate 82, no ST or depressions, no significant change from prior EKGs. In the ED, given 40 mg IV Lasix and 1 mg morphine. Patient will be admitted for further management of CHF exacerbation with chest pain. hospital course: Patient was admitted for acute hypoxic respiratory failure due to acute on chronic systolic and right-sided CHF. He was initially diuresed with IV Bumex. Echo showed EF of 25-30% and RV dysfunction. Course was complicated by acute kidney injury on CKD 4 with hyperkalemia and uremia. His diuretics were held. He was given back some volume. However, patient became oliguric and renal function continued to worsen. Was seen by Nephrology recommended placement of HD catheter for dialysis which was done on 09/10/23. Also on admission patient was incidentally found to have new finding of liver metastasis. CT chest was suspicious for lung malignancy as primary. Course complicated by hematuria which resolved with holding Xarelto. Chronic atrial fibrillation which was rate controlled. Diabetes was treated with insulin. Late evening 09/10/2023 after hemodialysis patient started to feel more weak and more nauseous. Seen by critical Care, given more volume and glucose and empiric antibiotics (no sepsis). at 22:31 patient was found unresponsive and code blue was called. CPR and ACLS were performed but Rosc was not achieved. time of was 22:48. Additional Data Attending physician: Giovanni Martinez MD
[2023-09-11 08:43] LABS: HBc Num1 0.15 S/CO (0.00-0.79); HBsAGNum1 0.42 S/CO (0.00-0.99); Hepatitis B Core Antibody Nonreactive (Nonreactive); Hepatitis B Surface Antigen Negative (Negative); ~Hepatitis B Surface Antibody NONREACTIVE (Nonreactive)
== END 2023-09-10 22:48 | disposition expired | DRG 291 ==
LOC: HO.ED 23:04 → HO.EDOVER 23:08 → HO.IMC 09-06 19:19
PROVIDERS: Internal Medicine; Internal Medicine Hypertension Specialist; Physician Assistant Medical; Physician Assistant Surgical; Admitting Provider Physician Assistant; Emergency Provider Emergency Medicine; PCP Internal Medicine; Referring Provider Internal Medicine; Visit Provider Internal Medicine
DX: I13.0 Hypertensive heart and chronic kidney disease with heart failure and stage 1 through stage 4 chronic kidney disease, or unspecified chronic kidney disease (principal); I50.23 Acute on chronic systolic (congestive) heart failure; J96.01 Acute respiratory failure with hypoxia; N17.0 Acute kidney failure with tubular necrosis; N18.4 Chronic kidney disease, stage 4 (severe); I48.20 Chronic atrial fibrillation, unspecified; C78.7 Secondary malignant neoplasm of liver and intrahepatic bile duct; C34.11 Malignant neoplasm of upper lobe, right bronchus or lung; I50.813 Acute on chronic right heart failure; I46.9 Cardiac arrest, cause unspecified; R31.0 Gross hematuria; E86.1 Hypovolemia; E87.5 Hyperkalemia; I95.1 Orthostatic hypotension; N40.0 Benign prostatic hyperplasia without lower urinary tract symptoms; E11.22 Type 2 diabetes mellitus with diabetic chronic kidney disease; L89.156 Pressure-induced deep tissue damage of sacral region; I25.10 Atherosclerotic heart disease of native coronary artery without angina pectoris; Z20.822 Contact with and (suspected) exposure to COVID-19; Z95.1 Presence of aortocoronary bypass graft; Z95.810 Presence of automatic (implantable) cardiac defibrillator; Z79.01 Long term (current) use of anticoagulants; Z79.84 Long term (current) use of oral hypoglycemic drugs; Z79.899 Other long term (current) drug therapy
CPT/HCPCS: 0241U; 36415; 36558; 71045; 71250; 74176; 76705; 80048; 80053; 80076; 81001; 82803; 82947; 82977; 83605; 83735; 83880; 84484; 85025; 85027; 85610; 85730; 86704; 86706; 87340; 90999; 92950; 93005; 93306; 94799; 99285; C1750; C1758; C1769; J1939; J1940; J2270; J2405

== ENCOUNTER 2023-09-05 22:42 | Outpatient (BNV) | payer OTHER, MEDICARE, SELFPAY | END 2023-09-06 07:00 | PROVIDERS: Admitting Provider Physician Assistant; Emergency Provider Emergency Medicine; PCP Internal Medicine; Visit Provider Internal Medicine Cardiovascular Disease | DX: I34.0 Nonrheumatic mitral (valve) insufficiency (principal) | CPT/HCPCS: 93306 ==

== ENCOUNTER 2023-09-05 22:42 | Outpatient (BNV) | payer OTHER, SELFPAY | END 2023-09-09 13:13 | PROVIDERS: Admitting Provider Physician Assistant; Emergency Provider Emergency Medicine; PCP Internal Medicine; Visit Provider Physician Assistant Surgical | DX: N18.6 End stage renal disease (principal) | CPT/HCPCS: 36558; 76937; 77001 ==

== ENCOUNTER → 2023-09-05 22:42 | Outpatient (BNV) | payer OTHER, SELFPAY | PROVIDERS: Admitting Provider Physician Assistant; Emergency Provider Emergency Medicine; PCP Internal Medicine; Visit Provider Internal Medicine Cardiovascular Disease | DX: I50.9 Heart failure, unspecified (principal); I48.20 Chronic atrial fibrillation, unspecified | CPT/HCPCS: 93010; 99222; 99233 ==

== ENCOUNTER → 2023-09-05 22:42 | Outpatient (BNV) | payer OTHER, SELFPAY | PROVIDERS: Admitting Provider Physician Assistant; Emergency Provider Emergency Medicine; PCP Internal Medicine; Visit Provider Internal Medicine Hypertension Specialist | DX: C78.7 Secondary malignant neoplasm of liver and intrahepatic bile duct (principal); N17.9 Acute kidney failure, unspecified; N18.4 Chronic kidney disease, stage 4 (severe); I50.9 Heart failure, unspecified | CPT/HCPCS: 99223; 99232; 99499 ==

== ENCOUNTER → 2023-09-05 22:42 | Outpatient (BNV) | payer OTHER, MEDICARE, SELFPAY | PROVIDERS: Admitting Provider Physician Assistant; Emergency Provider Emergency Medicine; PCP Internal Medicine; Visit Provider Nurse Practitioner Family | DX: J96.01 Acute respiratory failure with hypoxia (principal); I95.9 Hypotension, unspecified | CPT/HCPCS: 99291; 99292 ==

== ENCOUNTER → 2023-09-05 22:42 | Outpatient (BNV) | payer OTHER, SELFPAY | PROVIDERS: Admitting Provider Physician Assistant; Emergency Provider Emergency Medicine; PCP Internal Medicine; Visit Provider Physician Assistant | DX: I50.813 Acute on chronic right heart failure (principal); J96.01 Acute respiratory failure with hypoxia | CPT/HCPCS: 99223; 99233; 99499 ==

== ENCOUNTER → 2023-09-05 22:42 | Outpatient (BNV) | payer OTHER, SELFPAY | PROVIDERS: Admitting Provider Physician Assistant; Emergency Provider Emergency Medicine; PCP Internal Medicine; Visit Provider Internal Medicine | DX: R91.8 Other nonspecific abnormal finding of lung field (principal); K76.89 Other specified diseases of liver | CPT/HCPCS: 99222 ==

== ENCOUNTER → 2023-09-05 22:42 | Outpatient (BNV) | payer OTHER, SELFPAY | PROVIDERS: Admitting Provider Physician Assistant; Emergency Provider Emergency Medicine; PCP Internal Medicine; Referring Provider Internal Medicine; Visit Provider Urology | DX: N40.1 Benign prostatic hyperplasia with lower urinary tract symptoms (principal); N13.8 Other obstructive and reflux uropathy; R31.0 Gross hematuria; Z79.01 Long term (current) use of anticoagulants | CPT/HCPCS: 99222 ==